=== PATIENT | female | born 1970 | race Two or more races ===

== ENCOUNTER 2020-02-26 09:48 | Emergency (ER) | payer MEDICARE, MEDICAID, SELFPAY ==
[2020-02-26 10:13] VITALS: BP 119/97; PULSE 80; RESP 18; TEMP 37.1; O2SAT 98; BMI 31.8
--- NOTE | 2020-02-26 10:30 | XR_ITS ---
EXAMINATION: XR CHEST CLINICAL INFORMATION: Cough, fever COMPARISON: 01/16/2018 TECHNIQUE: Frontal view of the chest was obtained. FINDINGS: The cardiomediastinal silhouette is within normal limits. The lungs are well expanded. There is no focal consolidation, edema, or effusion. No pneumothorax. No acute osseous abnormality. XR/XR chest 1V IMPRESSION: No evidence of focal consolidation.
[2020-02-26 11:19] VITALS: BP 102/58; PULSE 64; RESP 16; TEMP 37.1; O2SAT 97
--- NOTE | 2020-02-26 11:19 | ED.URI ---
HPI - URI/Sore Throat General Chief Complaint: Upper Respiratory Symptoms Stated Complaint: Fever, Difficulty Breathing Time Seen by Provider: 02/26/20 10:27 Source: patient Mode of arrival: ambulatory History of Present Illness HPI Narrative: 50-year-old female with a past medical history of hypothyroid presenting to ED complaining of fever T-max 102?, dry cough, body aches, mild SOB, and chest discomfort when coughing since last night. Admits to taking Tylenol around 2:00 a.m.. Denies recent travel, sick contacts/exposure to COVID-19, abdominal pain, nausea/vomiting/diarrhea, sore throat MD elicited complaint: cough Related Data Previous Rx's Medication Instructions Recorded albuterol sulfate 2 puff INHALATION Q4-6H PRN #6.7 g 02/26/20 Allergies Allergy/AdvReac Type Severity Reaction Status Date / Time diphenhydramine Allergy Intermediate SEVERE Verified 02/26/20 10:16 [From BENADRYL] LETHARGY Review of Systems Review of Systems: Constitutional: No Weight loss, + Fever, No Chills ENT/Mouth: No Ear Pain, No Nasal Congestion, No Sinus Pain, No Hoarseness, No sore throat, No Rhinorrhea, No Swallowing Difficulty Cardiovascular: + Chest Pain when coughing, + SOB Respiratory: + Cough, No Sputum, No Wheezing Gastrointestinal: No Nausea, No Vomiting, No Diarrhea, No Constipation, No Abdominal pain Genitourinary:No Dysuria Musculoskeletal: No joint pain, + Myalgias, No Joint Swelling Skin: No Skin Lesions, No rash Yes all other systems are reviewed and are negative [facility] Past Medical History Attestation statement: The following information was validated with the patient. Medical History (Updated 02/26/20 @ 11:24 by RADHA Mcgill) Thyroid activity decreased Social History Social History Smoked in Last 30 Days: No Use of substances other than those prescribed or required for medical reasons: No Advance Directives: No Advance Directives Information Provided: Yes Physical Exam Vital Signs: Vital Signs: Last Vital Signs Temp 98.7 F 02/26/20 11:19 Pulse 64 02/26/20 11:19 Resp 16 02/26/20 11:19 BP 102/58 L 02/26/20 11:19 Pulse Ox 97 02/26/20 11:19 Body Mass Index 31.8 Const: General: cooperative and healthy appearing Orientation/consciousness: patient oriented x3 Limitations: no limitations HENMT: Head: Yes normal to inspection Ears: hearing grossly normal bilaterally General nose exam: Normal external nose present Face and sinus: Yes normal facial exam Eyes: General: appearance normal, both eyes and all related structures EOM: EOMs intact bilaterally Neck: Neck: Yes normal visual inspection and Yes no meningeal signs Resp: Effort & Inspection: normal respiratory effort Auscultation: clear to auscultation bilaterally, no crackles, no rhonchi and no wheezes Cardio: Rate: regular rate Heart sounds: S1 normal heart sound present and S2 normal heart sound present GI: Inspection: Yes normal to inspection Skin: Rashes: no rashes Wounds: no wounds Neuro: General: patient oriented x3 and no meningeal signs Gait exam (Neuro): Normal gait present Extrem: General: Yes normal to inspection Course Course Course Narrative: --CXR without evidence of focal consolidation MDM - URI/Sore Throat MDM Narrative Medical decision making narrative: On exam vital signs stable, afebrile, lungs CTA. Concern for viral syndrome/COVID-19. Rule out pneumonia. No concern for ACS/PE Plan: CXR, COVID-19 Discharge Plan Discharge Clinical Impression: Upper respiratory infection Patient Disposition: Home, Self-Care Instructions: Viral Syndrome (ED) Additional Instructions: Your x-ray was unremarkable today in the ED Albuterol inhaler is for shortness of breath/wheezing, take as needed at home Continue to take Tylenol every 4-6 hours for fever, if her fevers not coming down you should take Motrin Call your doctor, schedule follow-up If her symptoms persist or worsen, you develop constant worsening shortness of breath, chest pain, or fever unresolved medications at home return to the ED Jacobo radiograf?a no fue notable hoy en el servicio de urgencias El inhalador de albuterol es para la dificultad para respirar / sibilancias, t?young seg?n sea necesario en casa Contin?e tomando Tylenol cada 4-6 horas para la fiebre; si la fiebre no baja, debe cassidy Motrin. Llame a jacobo m?dico, programe un seguimiento Si maria isabel s?ntomas persisten o empeoran, presenta dificultad para respirar, dolor en el pecho o fiebre que empeoran constantemente. Medicamentos sin resolver en casa regresan al servicio de urgencias. Based on your symptoms and history we have sent a COVID-19. Although your RESULT IS PENDING at this time. RESULTS should return within 72 hours. At this time you will be contacted with either NEGATIVE OR POSITIVE results. -Please wait until we contact you for your results. At this time you will be okay for discharge. Please plan for self quarantine for up to 14 days. Do not expose yourself to others. You may not go to work. If testing does come back negative you may return to activities as long as you are no longer having any symptoms for at least 3 days. Please continue to follow cold instructions and wash your hands frequently. You may take Tylenol as directed on the bottle for pain or fever. Patient seen in the emergency department on 10/11/2019 and should be excused from work until negative test results AND until 72 hours without any symptoms AND at least 10 days have passed since symptoms first appeared or since last exposure to COVID-19 positive patient CDC Guidelines for home isolation: - Stay away from others - WEAR A MASK if you are sick AND STAY HOME - Cover your mouth and nose with a tissue when you cough or sneeze. Dispose of tissues in a lined trash can and wash your hands immediately with soap and water for at least 20 seconds. If soap and water are not available, clean hands with alcohol-based hand second time worker that contains at least 60% alcohol. - Clean your hands often with soap and water for at least 20 seconds - Avoid touching your eyes, nose and mouth with unwashed hands - Do not share dishes, drinking glasses, cups, eating utensils, towels, or bedding with other people in your home. After using these items, wash them thoroughly with soap and water or put in the hand gluer and slicer. - Clean high-touch surfaces in your isolation area ( sick room and bathroom) every day; let a caregiver clean and disinfect high-touch surfaces in other areas of the home. Clean the area or item with soap and water or another detergent if it is dirty. Then, use a household disinfectant. - Limit contact with pets and animals: If you must care for a pet, wash your hands before and after interacting with them) Prescriptions: New albuterol sulfate 90 mcg/actuation HFA aerosol inhaler 2 puff inhalation Q4-6H PRN (Reason: shortness of breath or wheezing) Qty: 6.7 RF: 0 Referrals: Adriana Palencia MD [Primary Care Provider] - 5 days Print Language: Slovenian
== END 2020-02-26 11:38 | disposition home or self-care (01) ==
PROVIDERS: Physician Assistant; Emergency Provider Emergency Medicine; PCP Internal Medicine
DX: J06.9 Acute upper respiratory infection, unspecified (principal); R50.9 Fever, unspecified; M79.10 Myalgia, unspecified site; Z20.828 Contact with and (suspected) exposure to other viral communicable diseases
CPT/HCPCS: 71045; 99284; U0003

== ENCOUNTER 2020-03-02 13:04 | Emergency (ER) | payer MEDICARE, MEDICAID, SELFPAY ==
--- NOTE | 2020-03-02 13:29 | XR_ITS ---
EXAMINATION: XR CHEST CLINICAL INFORMATION: Shortness of breath COMPARISON: Previous chest x-ray 02/26/2020 TECHNIQUE: Frontal view of the chest was obtained. FINDINGS: No significant abnormality is noted involving the heart, lungs, mediastinum, bony thorax or soft tissues. XR/XR chest 1V IMPRESSION: Unremarkable examination.
[2020-03-02 14:43] LABS: MANUAL DIFF FLAG NO
[2020-03-02 14:44] LABS: Eosinophils Percent Auto 0.8 % (0-4); Hematocrit 37.1 % (37-47); Hemoglobin 11.7 g/dl (12.0-16.0); Imm Gran Abs Auto 0.01 X10*3/uL (0.00-0.03); Imm Gran Pct Auto 0.2 % (0.0-0.4); Lymphocytes Percent Auto 21.1 % (20-40); Mean Corpuscular HGB Conc 31.5 g/dl (31.0-35.0); Mean Corpuscular Hemoglobin 27.2 pg (27.0-33.0); Mean Corpuscular Volume 86.3 fL (80-98); Mean Platelet Volume 10.6 fL (9.4-12.3); Monocytes Absolute Auto 0.4 X10*3/uL (0.1-1.2); Neutrophils Absolute Auto 3.4 X10*3/uL (2.0-8.3); Neutrophils Percent Auto 69.9 % (45-73); Platelet Count 169 X10*3/uL (160-400); Red Cell Distribution Width 14.9 % (11.0-16.0); White Blood Count 4.9 X10*3/uL (4.8-10.8)
[2020-03-02 14:58] LABS: D Dimer < 200 NG/ML
[2020-03-02 15:09] LABS: Alanine Aminotransferase 23 U/L (0-31); Albumin Level 3.9 g/dL (3.5-5.0); Alkaline Phosphatase 103 U/L (39-117); Anion Gap 10 (12-20); Aspartate Amino Transferase 54 U/L (5-31); Bilirubin Total 0.3 mg/dL (0.0-1.0); Blood Urea Nitrogen 9 mg/dL (9-16); Calcium 8.1 mg/dL (8.4-10.2); Carbon Dioxide 27 mmol/L (22-29); Chloride 106 mmol/L (96-108); Estimated Glomerular Filt Rate > 60; Glucose Random 88 mg/dL (60-115); Potassium 4.2 mmol/l (3.3-5.1); Sodium 139 mmol/L (135-145); Total Protein 6.5 g/dL (6.5-8.0)
[2020-03-02 15:14] LABS: Troponin-I High Sensitivity < 3.5 ng/L (<3.5-17.0)
[2020-03-02 15:25] VITALS: BP 117/56; PULSE 61; RESP 17; TEMP 35.6; O2SAT 99; BMI 14060.0
--- NOTE | 2020-03-02 15:25 | ED_ITS ---
HPI - SOB/Dyspnea General Chief Complaint: Dyspnea Stated Complaint: difficulty breathing, covid + Time Seen by Provider: 03/02/20 13:28 Source: patient Mode of arrival: ambulatory Limitations: no limitations History of Present Illness HPI Narrative: This is a 50-year-old female who reports she has history of hypothyroidism otherwise no significant past medical history presenting today with complaint of chest pain/tightness and slight cough. States she was seen here 5 days ago she was tested for COVID-19 she was called the following day told she was positive. She states that she has had the nasal congestion and cough with some shortness of breath and tightness in the chest. She denies any fever. Does have slight body aches. No lower extremity swelling or pain. MD elicited complaint: shortness of breath and cough Context: recent illness Timing: other (Wax/wane) Severity: moderate Exacerbating factors: nothing Relieving factors: nothing Associated symptoms: denies other symptoms Treatment prior to arrival: bronchodilator Related Data Previous Rx's Medication Instructions Recorded albuterol sulfate 2 puff INHALATION Q4-6H PRN #6.7 g 02/26/20 azithromycin [Zithromax Z-Stephen] 250 mg PO DAILY 5 Days #6 tab 03/02/20 prednisone 40 mg PO DAILY 5 Days #10 tab 03/02/20 Allergies Allergy/AdvReac Type Severity Reaction Status Date / Time diphenhydramine Allergy Intermediate SEVERE Verified 02/26/20 10:16 [From BENADRYL] LETHARGY Review of Systems Review of Systems: Constitutional: No Weight loss, No Fever, No Chills, No Night Sweats, No Fatigue, No Malaise ENT/Mouth: No Hearing loss, No Ear Pain, + Nasal Congestion, No Sinus Pain, No Hoarseness, No sore throat, + Rhinorrhea, No Swallowing Difficulty Eyes: No Eye Pain, No Swelling, No Redness, No Foreign Body Cardiovascular: + Chest Pain, No SOB, No Dyspnea on Exertion, No Orthopnea, No Edema, No Palpitations Respiratory: + Cough, No Sputum, No Wheezing, No Smoke Exposure, No Dyspnea Gastrointestinal: No Nausea, No Vomiting, No Diarrhea, No Constipation, No abdominal Pain, No Hematochezia, No Melena Genitourinary: no irregular bleeding, No Dysuria, No Urinary Frequency, No Hematuria, No Urinary Incontinence Musculoskeletal: No joint pain, No Myalgias, No Joint Swelling Skin: No Skin Lesions, No rash Neuro: No Weakness, No Numbness, No Paresthesias, No Loss of Consciousness, No Dizziness, No Headache Psych: + Anxiety related to dx of COVID, No Social Issues Heme/Lymph: No Bruising, No Bleeding,No Lymphadenopathy Endocrine: No Polyuria, No Polydipsia, No Temperature Intolerance Yes all other systems are reviewed and are negative [facility] Past Medical History Attestation statement: The following information was validated with the patient. Medical History (Updated 03/02/20 @ 15:28 by Landry Guillermo NP) Thyroid activity decreased Social History Social History Alcohol intake: never Smoking Status: Never smoker Use of substances other than those prescribed or required for medical reasons: No Advance Directives: No Advance Directives Information Provided: Yes Physical Exam Vital Signs: Vital Signs: Last Vital Signs Temp 96.0 F L 03/02/20 15:25 Pulse 61 03/02/20 15:25 Resp 17 03/02/20 15:25 BP 117/56 L 03/02/20 15:25 Pulse Ox 99 03/02/20 15:25 Body Mass Index 79065.0 Reviewed Const: General: cooperative and healthy appearing; No acute distress or intoxicated appearing Nutritional Appearance: average body habitus Orientation/consciousness: patient oriented x3 HENMT: Head: Yes normal to inspection Ears: hearing grossly normal bilaterally Eyes: General: appearance normal, both eyes and all related structures Visual Prajapati: normal visual prajapati by confrontation Neck: Neck: Yes normal visual inspection, No positive Brudzinski's sign, No positive Kernig's sign and No tender Thyroid: Thyroid normal Chest: Chest palpation & inspection: normal inspection of the chest Resp: Effort & Inspection: normal respiratory effort Auscultation: clear to auscultation bilaterally Cardio: Jugular venous distension: no JVD GI: Inspection: Yes normal to inspection Percussion: Yes normal to percussion Auscultation: normal bowel sounds : General: Yes no CVA tenderness Back/Spine/Pelvis: Back: no CVA tenderness Skin: General skin exam: no rashes or lesions noted Neuro: General: patient oriented x3 Extrem: General: Yes normal to inspection MDM - SOB/Dyspnea MDM Narrative Medical decision making narrative: Patient well nontoxic in. Hemodynamically stable. Pulse ox 99-100% on room air. Lung sounds clear to auscultation. Trope/D-dimer negative. EKG nondiagnostic no acute ischemic changes. Differential Diagnosis Differential diagnosis: Likely pneumonia (Viral syndrome); Unlikely acute exacerbation of chronic obstructive airways disease, congestive heart failure, asthma with exacerbation, pulmonary embolism, pleural effusion, sleep apnea and anemia Lab Data Attestation: I reviewed the patient's lab results. Result diagrams: 03/02/20 14:40 03/02/20 14:40 Labs: Lab Results 03/02/20 03/02/20 03/02/20 Range/Units 14:40 14:40 14:40 WBC 4.9 (4.8-10.8) X10*3/uL RBC 4.30 (4.20-5.50) X10*6/uL Hgb 11.7 L (12.0-16.0) g/dl Hct 37.1 (37-47) % MCV 86.3 (80-98) fL MCH 27.2 (27.0-33.0) pg MCHC 31.5 (31.0-35.0) g/dl RDW 14.9 (11.0-16.0) % Plt Count 169 (160-400) X10*3/uL MPV 10.6 (9.4-12.3) fL Immature Gran % (Auto) 0.2 (0.0-0.4) % Neut % (Auto) 69.9 (45-73) % Lymph % (Auto) 21.1 (20-40) % Powell % (Auto) 8.0 (2-11) % Eos % (Auto) 0.8 (0-4) % Baso % (Auto) 0.0 (0-2) % Lymph # (Auto) 1.0 L (1.2-4.9) X10*3/uL Powell # (Auto) 0.4 (0.1-1.2) X10*3/uL Eos # (Auto) 0.0 (0.0-0.4) X10*3/uL Baso # (Auto) 0.0 (0.0-0.2) X10*3/uL Abs Immat Gran (auto) 0.01 (0.00-0.03) X10*3/uL Absolute Neuts (auto) 3.4 (2.0-8.3) X10*3/uL Absolute Nucleated RBC 0.000 (0.0-0.012) X10*3/uL Nucleated RBC % (auto) 0.0 (0.0-0.2) /100WBC D-Dimer < 200 NG/ML Sodium 139 (135-145) mmol/L Potassium 4.2 (3.3-5.1) mmol/l Chloride 106 (96-108) mmol/L Carbon Dioxide 27 (22-29) mmol/L Anion Gap 10 L (12-20) BUN 9 (9-16) mg/dL Creatinine 0.74 (0.5-1.4) mg/dL Estim Creat Clear Calc TNP Estimated GFR > 60 Random Glucose 88 (60-115) mg/dL Calcium 8.1 L (8.4-10.2) mg/dL Total Bilirubin 0.3 (0.0-1.0) mg/dL AST 54 H (5-31) U/L ALT 23 (0-31) U/L Alkaline Phosphatase 103 (39-117) U/L Troponin I High Sens (<3.5-17.0) ng/L Total Protein 6.5 (6.5-8.0) g/dL Albumin 3.9 (3.5-5.0) g/dL 03/02/20 Range/Units 14:40 WBC (4.8-10.8) X10*3/uL RBC (4.20-5.50) X10*6/uL Hgb (12.0-16.0) g/dl Hct (37-47) % MCV (80-98) fL MCH (27.0-33.0) pg MCHC (31.0-35.0) g/dl RDW (11.0-16.0) % Plt Count (160-400) X10*3/uL MPV (9.4-12.3) fL Immature Gran % (Auto) (0.0-0.4) % Neut % (Auto) (45-73) % Lymph % (Auto) (20-40) % Powell % (Auto) (2-11) % Eos % (Auto) (0-4) % Baso % (Auto) (0-2) % Lymph # (Auto) (1.2-4.9) X10*3/uL Powell # (Auto) (0.1-1.2) X10*3/uL Eos # (Auto) (0.0-0.4) X10*3/uL Baso # (Auto) (0.0-0.2) X10*3/uL Abs Immat Gran (auto) (0.00-0.03) X10*3/uL Absolute Neuts (auto) (2.0-8.3) X10*3/uL Absolute Nucleated RBC (0.0-0.012) X10*3/uL Nucleated RBC % (auto) (0.0-0.2) /100WBC D-Dimer NG/ML Sodium (135-145) mmol/L Potassium (3.3-5.1) mmol/l Chloride (96-108) mmol/L Carbon Dioxide (22-29) mmol/L Anion Gap (12-20) BUN (9-16) mg/dL Creatinine (0.5-1.4) mg/dL Estim Creat Clear Calc Estimated GFR Random Glucose (60-115) mg/dL Calcium (8.4-10.2) mg/dL Total Bilirubin (0.0-1.0) mg/dL AST (5-31) U/L ALT (0-31) U/L Alkaline Phosphatase (39-117) U/L Troponin I High Sens < 3.5 (<3.5-17.0) ng/L Total Protein (6.5-8.0) g/dL Albumin (3.5-5.0) g/dL Imaging Data Chest x-ray: Attestation: I personally reviewed and interpreted this imaging study as follows: Radiologist's impression: [address] [address] XRay Report Signed Patient: Sudha Dean [facility]#: [id number] : 1970Acct:[id number] Age/Sex: 50 / FADM Date: 03/02/20 Loc: .ED Attending Dr: Ordering Physician: Landry Guillermo NP Date of Service: 03/02/20 Procedure(s): XR chest 1V Accession Number(s): [id number] cc: Landry Guillermo 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 FINDINGS: No significant abnormality is noted involving the heart, lungs, mediastinum, bony thorax or soft tissues. XR/XR chest 1V IMPRESSION: Unremarkable examination. Dictated By:TYLER HUGHES MD Signed By:<Electronically signed by TYLER HUGHES MD in OV>03/02/20 1408 DD/ 1329 TD/TT: Sewer Pipe Press Operator: RADHA Discharge Plan Discharge Clinical Impression: COVID-19, Acute chest wall pain Patient Disposition: Home, Self-Care Instructions: Chest Pain (ED), COVID-19 (Coronavirus Disease 2019) (ED) Prescriptions: New azithromycin [Zithromax Z-Stephen] 250 mg tablet 250 mg PO DAILY 5 Days Qty: 6 RF: 0 prednisone 20 mg tablet 40 mg PO DAILY 5 Days Qty: 10 RF: 0 No Action albuterol sulfate 90 mcg/actuation HFA aerosol inhaler 2 puff inhalation Q4-6H PRN (Reason: shortness of breath or wheezing) Qty: 6.7 RF: 0 Referrals: Adriana Palencia MD [Primary Care Provider] - 5 days (Phone visit++) Discharge Date/Time: 03/02/20 15:39
== END 2020-03-02 15:39 | disposition home or self-care (01) ==
PROVIDERS: Nurse Practitioner Primary Care; Emergency Provider Emergency Medicine; PCP Internal Medicine
DX: U07.1 COVID-19 (principal); R06.02 Shortness of breath; R07.89 Other chest pain; Z79.899 Other long term (current) drug therapy
CPT/HCPCS: 36415; 71045; 80053; 84484; 85025; 85379; 99283

== ENCOUNTER → 2020-03-05 13:49 | Outpatient (BNVA) | payer MEDICARE, MEDICAID, SELFPAY | PROVIDERS: PCP Internal Medicine; Referring Provider Internal Medicine; Visit Provider Internal Medicine Endocrinology, Diabetes & Metabolism | DX: E03.9 Hypothyroidism, unspecified (principal); E55.9 Vitamin D deficiency, unspecified; U07.1 COVID-19; R53.83 Other fatigue; R06.02 Shortness of breath; R05 Cough; Z79.899 Other long term (current) drug therapy | CPT/HCPCS: Q3014 ==

== ENCOUNTER 2020-03-26 13:01 | Outpatient (REF) | payer MEDICARE, MEDICAID, SELFPAY ==
[2020-03-26 15:14] LABS: Free T4 (Free Thyroxine) 1.14 ng/dL (0.71-1.85); Thyroid Stimulating Hormone 0.39 uIU/mL (0.32-4.0); Vitamin D 25-OH Total 18.2 ng/mL (>30)
== END 2020-03-26 13:02 | disposition home or self-care (01) ==
LOC: HO.LAB 13:01
PROVIDERS: Absent Provider Internal Medicine Endocrinology, Diabetes & Metabolism; PCP Internal Medicine; Visit Provider Internal Medicine
DX: Z20.828 Contact with and (suspected) exposure to other viral communicable diseases (principal); E55.9 Vitamin D deficiency, unspecified; E06.3 Autoimmune thyroiditis; E03.8 Other specified hypothyroidism
CPT/HCPCS: 82306; 84439; 84443; C9803; U0003

== ENCOUNTER 2020-04-23 10:14 | Outpatient (REF) | payer OTHER, SELFPAY ==
--- NOTE | 2020-04-23 10:20 | XR_ITS ---
EXAMINATION: XR CHEST CLINICAL INFORMATION: Chest pain COMPARISON: Chest radiographs 03/02/2020, 02/26/2020 TECHNIQUE: 2 views of the chest were obtained. FINDINGS: The lungs are clear. There is no pneumothorax, pleural reaction, airspace consolidation, or groundglass opacity. No effusion. The costophrenic sulci are well-defined. The heart is normal in size. The hilar and mediastinal contours are normal. There is surgical clips again seen epigastrium left of midline. Bony structures are unremarkable. XR/XR chest 2V IMPRESSION: Unremarkable examination.
== END 2020-04-23 10:15 | disposition home or self-care (01) ==
LOC: HO.XRAY 10:14
PROVIDERS: PCP Internal Medicine; Visit Provider Internal Medicine
DX: R07.89 Other chest pain (principal)
CPT/HCPCS: 71046

== ENCOUNTER 2020-05-16 21:53 | Emergency (ER) | payer OTHER, SELFPAY ==
[2020-05-16 22:02] VITALS: BP 132/63; PULSE 82; RESP 16; TEMP 36.6; O2SAT 100; BMI 33.6
--- NOTE | 2020-05-16 22:41 | XR_ITS ---
EXAMINATION: XR CHEST CLINICAL INFORMATION: Cough COMPARISON: Chest x-ray of 04/23/2020, 03/02/2020, 02/26/2020 TECHNIQUE: 2 views of the chest were obtained. FINDINGS: The cardiomediastinal silhouette is stable and normal. The lungs are symmetrically well expanded. The lungs are clear. No pleural effusions or pneumothorax. The osseous structures are unremarkable. Visualized upper abdomen is unremarkable. XR/XR chest 2V IMPRESSION: No radiographic evidence of pneumonia. No acute pulmonary process.
--- NOTE | 2020-05-16 22:43 | ED_ITS ---
HPI - Back Pain/Injury General Chief Complaint: Back Pain/Injury Stated Complaint: Back strain Time Seen by Provider: 05/16/20 22:08 Source: patient Mode of arrival: ambulatory History of Present Illness HPI Narrative: This is a 50-year-old female who states that she went to sleep and then woke up with a sharp posterolateral pain within the rib area that became worse with deep inspiration and is not associated with trauma, fevers, chills, cough, sore throat, any GI symptoms, or symptoms. This started last night and patient has not taken anything [id number] to alleviate the pain because she ?did not know what it was?. No recent history of long car rides or plane trips, hemoptysis, estrogen supplementation, personal history of cancer, recent surgery or bed bound state, calf pain or calf swelling. Related Data Home Medications Medication Instructions Recorded Confirmed hydroxyzine HCl 25 mg tablet mg PO 03/05/20 03/05/20 lorazepam 0.5 mg tablet 0.5 mg PO BEDTIME PRN 03/05/20 03/05/20 Previous Rx's Medication Instructions Recorded albuterol sulfate 2 puff INHALATION Q4-6H PRN #6.7 g 02/26/20 azithromycin [Zithromax Z-Stephen] 250 mg PO DAILY 5 Days #6 tab 03/02/20 prednisone 40 mg PO DAILY 5 Days #10 tab 03/02/20 levothyroxine 137 mcg tablet 137 mcg PO DAILY 90 Days #90 tab 03/05/20 cholecalciferol (vitamin D3) 50 50 mcg PO DAILY 90 Days #90 cap 03/26/20 mcg (2,000 unit) capsule Allergies Allergy/AdvReac Type Severity Reaction Status Date / Time diphenhydramine Allergy Intermediate SEVERE Verified 05/16/20 22:04 [From BENADRYL] LETHARGY Review of Systems Review of Systems: Pertinent positives and negatives as stated in HPI 10 point review of systems is otherwise negative. PMFSH Past Medical History Source: nursing notes reviewed Medical History Asthma Depression Hypothyroidism Thyroid activity decreased Vitamin D deficiency Surgical History Hx of gastric bypass Hx of lithotripsy Family History Family History Father Leukemia Cancer Mother Diabetes mellitus Hypertension Social History Social History Alcohol intake: never Smoking Status: Never smoker Advance Directives: No Advance Directives Information Provided: Yes Physical Exam Vital Signs: Vital Signs: Last Vital Signs Temp 97.9 F 05/16/20 22:02 Pulse 82 05/16/20 22:02 Resp 16 05/16/20 22:02 BP 132/63 05/16/20 22:02 Pulse Ox 100 05/16/20 22:02 Body Mass Index 33.6 VITAL SIGNS: Reviewed. GENERAL: Well developed, well nourished, in no acute distress. NOSE: Nares patent bilateral OROPHARYNX: no oral lesions noted, posterior pharynx clear NECK: Supple, no adenopathy LUNGS: Normal breath sounds. No adventitious sounds or accessory muscle use. SpO2<100> CARDIOVASCULAR: Regular rate and rhythm without noted murmurs ABDOMEN: Soft, non-tender, non-distended with bowel sounds. No rigidity. No guarding. No palpable masses or hernias noted MUSCULOSKELETAL: Tenderness on palpation over left posterior lateral lower margin of the ribs without erythema or induration SKIN: Inspection of the skin reveals no rashes NEUROLOGIC: Alert and oriented x 4. Course Course Course Narrative: This is a 50-year-old female with history and clinical presentation consistent with suspected muscle spasm/strain and low likelihood of cardiopulmonary etiology for pyelonephritis and doubt PE. Review of all investigations is negative for any acute findings. On re- evaluation patient states that she has had significant improvement with the combination analgesics provided. All results and findings were discussed with her bedside and she was discharged home in stable condition. MDM - Back Pain/Injury Lab Data Labs: Lab Results 05/16/20 Range/Units 23:10 Urine Color YELLOW Urine Appearance CLEAR Urine pH 6.0 (5.0-8.0) Ur Specific [place] >= 1.030 H (1.005-1.025) Urine Protein NEG (NEG-TRACE) MG/DL Urine Glucose (UA) NEG (NEG) MG/DL Urine Ketones 5 (NEG) MG/DL Urine Blood NEG (NEG) Urine Nitrite NEG (NEG) Ur Leukocyte Esterase NEG (NEG) Discharge Plan Discharge Clinical Impression: Muscle spasm of back Patient Disposition: Home, Self-Care Instructions: Muscle Spasm (ED) Additional Instructions: 1. Tylenol 1000 mg, por v?a oral, cada 6 horas seg?n sea necesario para controlar el dolor. No exceda los 4000 mg en 24 horas. 2. Ibuprofeno 400 mg, por v?a oral con leche o alimentos, cada 6 horas seg?n sea necesario para controlar el dolor. Puede cassidy esto con Tylenol para un alivio adicional de los s?ntomas. 3. Parche de lidoca?na, estos est?n disponibles en todos los [facility] / [facility] / [facility], apl?quelo en el ?josiah de m?xima sensibilidad ritchie se indica en el empaque exterior. Regrese al departamento de emergencias si experimenta un empeoramiento orestes de maria isabel s?ntomas. Prescriptions: No Action cholecalciferol (vitamin D3) 50 mcg (2,000 unit) capsule 50 mcg PO DAILY 90 Days Qty: 90 RF: 3 azithromycin [Zithromax Z-Stephen] 250 mg tablet 250 mg PO DAILY 5 Days Qty: 6 RF: 0 prednisone 20 mg tablet 40 mg PO DAILY 5 Days Qty: 10 RF: 0 albuterol sulfate 90 mcg/actuation HFA aerosol inhaler 2 puff inhalation Q4-6H PRN (Reason: shortness of breath or wheezing) Qty: 6.7 RF: 0 lorazepam 0.5 mg tablet 0.5 mg PO BEDTIME PRNRF: 0 hydroxyzine HCl 25 mg tablet PO RF: 0 levothyroxine 137 mcg tablet 137 mcg PO DAILY 90 Days Qty: 90 RF: 3 Referrals: Adriana Palencia MD [Primary Care Provider] - 2 days (Re-evaluation after being seen in the emergency department on 05/17 for left posterolateral pain with negative chest x-ray/UA.) Print Language: Romansh
[2020-05-16] MEDS: Acetaminophen 325 MG TABLET 975 MG PO (23:00)
[2020-05-16] MEDS: Ketorolac Tromethamine 15 MG/ML VIAL IM (23:00)
[2020-05-16] MEDS: Lidocaine 4 % Patch ADH..PATCH 1 PATCH TRANSDERMA (23:03)
[2020-05-16 23:16] LABS: Glucose Urine UA NEG (NEG); Leukocyte Esterase Urine NEG (NEG); Nitrite Urine NEG (NEG); Specific Gravity - Urine >= 1.030 (1.005-1.025); Urine Blood NEG (NEG); Urine Ketones 5 MG/DL (NEG); Urine Protein NEG (NEG-TRACE)
[2020-05-16 23:18] LABS: Appearance Urine CLEAR; Color Urine YELLOW
== END 2020-05-17 00:44 | disposition home or self-care (01) ==
PROVIDERS: Emergency Provider Student in an Organized Health Care Education/Training Program; PCP Internal Medicine
DX: M62.830 Muscle spasm of back (principal); Z86.16 Personal history of COVID-19
CPT/HCPCS: 71046; 81003; 96372; 99284; J1885

== ENCOUNTER 2020-05-25 11:26 | Outpatient (REF) | payer OTHER, SELFPAY ==
--- NOTE | ~2020-05-25 | XR_ITS ---
EXAMINATION: XR CERVICAL SPINE XR LUMBAR SPINE CLINICAL INFORMATION: Neck pain. Lower back pain. COMPARISON: Cervical spine radiographs dated 05/31/2016. CT abdomen/pelvis dated 10/05/2010. TECHNIQUE: AP, lateral, open-mouth, foraminal, and bilateral oblique views of the cervical spine. AP, lateral, and coned-down views of the lumbar spine. FINDINGS: CERVICAL SPINE: Normal vertebral body alignment. The cervical lordosis is maintained. No acute fracture or subluxation. No loss of vertebral body height. Mild loss of intervertebral disc height with tiny anterior endplate osteophytes at C4-C5 and C5-C6. No significant neural foraminal stenosis. No lytic or blastic osseous lesion. Normal atlantoaxial alignment. Unremarkable prevertebral soft tissues. LUMBAR SPINE: Normal vertebral body alignment. The lumbar lordosis is maintained. No acute fracture or subluxation. No loss of vertebral body or intervertebral disc height. No lytic or blastic osseous lesion. No abnormal soft tissue calcification. Left upper quadrant surgical clips. XR/XR cervical spine min 6V IMPRESSION: Cervical spine: Mild degenerative disc disease at C4-C5 and C5-C6, similar when compared to the prior examination. Lumbar spine: Unremarkable examination.
--- NOTE | ~2020-05-25 | XR_ITS ---
EXAMINATION: XR CERVICAL SPINE XR LUMBAR SPINE CLINICAL INFORMATION: Neck pain. Lower back pain. COMPARISON: Cervical spine radiographs dated 05/31/2016. CT abdomen/pelvis dated 10/05/2010. TECHNIQUE: AP, lateral, open-mouth, foraminal, and bilateral oblique views of the cervical spine. AP, lateral, and coned-down views of the lumbar spine. FINDINGS: CERVICAL SPINE: Normal vertebral body alignment. The cervical lordosis is maintained. No acute fracture or subluxation. No loss of vertebral body height. Mild loss of intervertebral disc height with tiny anterior endplate osteophytes at C4-C5 and C5-C6. No significant neural foraminal stenosis. No lytic or blastic osseous lesion. Normal atlantoaxial alignment. Unremarkable prevertebral soft tissues. LUMBAR SPINE: Normal vertebral body alignment. The lumbar lordosis is maintained. No acute fracture or subluxation. No loss of vertebral body or intervertebral disc height. No lytic or blastic osseous lesion. No abnormal soft tissue calcification. Left upper quadrant surgical clips. XR/XR lumbar spine 2-3V IMPRESSION: Cervical spine: Mild degenerative disc disease at C4-C5 and C5-C6, similar when compared to the prior examination. Lumbar spine: Unremarkable examination.
== END 2020-05-25 11:27 | disposition home or self-care (01) ==
LOC: HO.XRAY 11:26
PROVIDERS: PCP Internal Medicine; Visit Provider Internal Medicine
DX: M54.5 Low back pain (principal)
CPT/HCPCS: 72052; 72100

== ENCOUNTER 2020-08-27 11:53 | Outpatient (REF) | payer OTHER, SELFPAY ==
--- NOTE | ~2020-08-27 | MM_ITS ---
EXAMINATION: MM SCREENING DIGITAL BREAST TOMOSYNTHESIS, BILATERAL CLINICAL INFORMATION: Screening. Asymptomatic. The lifetime risk of breast cancer based on the Tyrer-Cuzick Model is 7.3%. COMPARISON: Mammography: May 30, 2019 and studies dating back to May 25, 2010 TECHNIQUE: Digital breast tomosynthesis is performed in both the craniocaudal and mediolateral oblique views along with computer-aided detection (CAD). Synthesized 2D images are generated from the tomosynthesis. FINDINGS: There are scattered areas of fibroglandular density (ACR BI-RADS breast composition Category b). There are no significant masses, abnormal calcifications, or other abnormalities. MM/MM tomosynthesis screening BI IMPRESSION: There are no significant changes from prior study. ASSESSMENT: BI-RADS 1: Negative RECOMMENDATION: Routine annual mammography screening. This patient's information was entered into a reminder system with a target due date for their next mammogram.
== END 2020-08-27 11:54 | disposition home or self-care (01) ==
LOC: HO.MAMMO 11:53
PROVIDERS: Visit Provider Internal Medicine
DX: Z12.31 Encounter for screening mammogram for malignant neoplasm of breast (principal)
CPT/HCPCS: 77063; 77067

== ENCOUNTER 2021-01-18 10:31 | Emergency (ER) | payer OTHER, SELFPAY ==
--- NOTE | 2021-01-18 | ECG_ITS ---
Test Reason : CP Blood Pressure : / mmHG Vent. Rate : 062 BPM Atrial Rate : 062 BPM P-R Int : 148 ms QRS Dur : 072 ms QT Int : 420 ms P-R-T Axes : 038 013 049 degrees QTc Int : 426 ms Normal sinus rhythm Normal ECG When compared with ECG of 16-JAN-2018 10:03, No significant change was found Referred By: Generic ED Physician Electronically Signed By:LOU GHOSH
--- NOTE | ~2021-01-18 | XR_ITS ---
EXAMINATION: XR CHEST CLINICAL INFORMATION: Cough. COMPARISON: None TECHNIQUE: Frontal view of the chest was obtained. FINDINGS: No significant abnormality is noted involving the heart, lungs, mediastinum, bony thorax or soft tissues. XR/XR chest 1V IMPRESSION: Unremarkable chest exam.
[2021-01-18 10:38] VITALS: BP 113/72; PULSE 62
[2021-01-18 11:14] VITALS: BP 128/57; PULSE 58; RESP 17; TEMP 35.6; O2SAT 100; BMI 34.9
[2021-01-18 13:39] VITALS: BP 131/61; PULSE 64; RESP 18; TEMP 36.7; O2SAT 99
--- NOTE | 2021-01-18 13:55 | ED_ITS ---
HPI - General Adult General Chief complaint: General Medical Stated complaint: CH PRESSURE W/INSP,SINUS LUNA,DIARRHEA Time Seen by Provider: 01/18/21 13:42 Source: patient Mode of arrival: ambulatory Limitations: no limitations History of Present Illness HPI narrative: Patient comes to the emergency room complaining of sinus congestion, pressure in the forehead and nose. States she have slight neck pain on the left side of the neck in 1 specific spot. Patient states that today she had 2 panic attack starting at 2 in the morning, EMS was called, vitals stable, patient declined transport to hospital. Patient states that this time she has no chest pain, no shortness of breath, she feels very congested and cannot breathe through her nose. Related Data Home Medications Medication Instructions Recorded Confirmed hydroxyzine HCl 25 mg tablet mg PO 03/05/20 03/05/20 lorazepam 0.5 mg tablet 0.5 mg PO BEDTIME PRN 03/05/20 03/05/20 Previous Rx's Medication Instructions Recorded albuterol sulfate 90 mcg/actuation 2 puff INHALATION Q4-6H PRN #6.7 g 02/26/20 aerosol inhaler azithromycin 250 mg tablet 250 mg PO DAILY 5 Days #6 tab 03/02/20 (Zithromax Z-Stephen) prednisone 20 mg tablet 40 mg PO DAILY 5 Days #10 tab 03/02/20 levothyroxine 137 mcg tablet 137 mcg PO DAILY 90 Days #90 tab 03/05/20 cholecalciferol (vitamin D3) 50 50 mcg PO DAILY 90 Days #90 cap 03/26/20 mcg (2,000 unit) capsule fexofenadine 60 mg-pseudoephedrine 1 tab PO Q12H 4 Days #8 tab 01/18/21 ER 120 mg tablet,ext.release,12 hr (Liliam-D 12 Hour) fluticasone propionate 50 1 spray INTRANASAL BID #16 g 01/18/21 mcg/actuation nasal spray,suspension (Children's Flonase Allergy Relief) Allergies Allergy/AdvReac Type Severity Reaction Status Date / Time diphenhydramine Allergy Intermediate SEVERE Verified 05/16/20 22:04 [From BENADRYL] LETHARGY Review of Systems Review of Systems: Constitutional : No Weight loss, No Fever, No Chills, No Night Sweats, No Fatigue, No Malaise ENT/Mouth : No Hearing loss, No Ear Pain, complaining of nasal congestion and sinus pain, No Hoarseness, No sore throat, No Rhinorrhea, No Swallowing Difficulty Eyes: No Eye Pain, No Swelling, No Redness, No Foreign Body, No Discharge, No Vision Changes Cardiovascular : No Chest Pain, No SOB, No Dyspnea on Exertion, No Orthopnea, No Edema, No Palpitations Respiratory : No Cough, No Sputum, No Wheezing, No Smoke Exposure, No Dyspnea Gastrointestinal : No Nausea, No Vomiting, No Diarrhea, No Constipation, No abdominal Pain, No Hematochezia, No Melena Genitourinary : no irregular bleeding, No Dysuria, No Urinary Frequency, No Hematuria, No Urinary Incontinence, No Urgency, No Flank Pain, No Urinary Flow Changes, No Hesitancy Musculoskeletal : No joint pain, No Myalgias, No Joint Swelling Skin : No Skin Lesions, No rash Neuro : No Weakness, No Numbness, No Paresthesias, No Loss of Consciousness, No Dizziness, No Headache Psych : Panic attack resolved, No Depression, No SI/HI/AH/VH, No Social Issues, Heme/Lymph: No Bruising, No Bleeding,No Lymphadenopathy Endocrine : No Polyuria, No Polydipsia, No Temperature Intolerance PMFSH Past Medical History Medical History Asthma Depression Hypothyroidism Thyroid activity decreased Vitamin D deficiency Surgical History Hx of gastric bypass Hx of lithotripsy Family History Family History Father Leukemia Cancer Mother Diabetes mellitus Hypertension Social History Social History Alcohol intake: never Advance Directives: No Advance Directives Information Provided: No Patient : No Physical Exam Vital Signs: Vital Signs: Last Vital Signs Temp 97.9 F 01/18/21 14:26 Pulse 60 01/18/21 14:26 Resp 16 01/18/21 14:26 BP 143/59 H 01/18/21 14:26 Pulse Ox 99 01/18/21 14:26 Body Mass Index 34.9 Const: Other: Appearance: Alert. Oriented X3. No acute distress. Eyes: Pupils equal, round and reactive to light. ENT: Pharynx normal. Pain to palpation over sinuses and ethmoid sinuses, patient is congested Neck: Normal inspection. Neck supple. No lymph nodes noted. No crepitus CVS: Normal heart rate and rhythm. Pulses normal. Normal S1 and S2 Respiratory: No respiratory distress. Breath sounds normal. No Wheezing. No rales Abdomen: Soft and nontender. No rigidity. No distention. good BS x4 Skin: Skin warm and dry. Normal skin color. Normal skin turgor. Extremities: No lower extremity edema. No lower extremity edema. No L acerations. No Rash Neuro: Oriented X 3. No motor deficit. No sensory deficit. Moving all extermities. No slurred speech. Medical Decision Making Lab Data Labs: Lab Results 01/18/21 Range/Units 14:23 COVID-19 ([facility]) Negative (Negative) COVID-19 Clin Com See Note Imaging Data Chest x-ray: Radiologist's impression: No significant abnormality is noted involving the heart, lungs, mediastinum, bony thorax or soft tissues. XR/XR chest 1V IMPRESSION: Unremarkable chest exam. ECG Data Attestation: I personally reviewed and interpreted this ECG as follows: (Sinus rhythm, heart rate 62, no ST segment depression or elevation, nonspecific T-wave inversion in V2, QTC 426) Discharge Plan Discharge Clinical Impression: Sinusitis Qualifiers: Sinusitis location: frontal Chronicity: acute Recurrence: not specified as recurrent Qualified Code(s): J01.10 - Acute frontal sinusitis, unspecified Patient Disposition: Home, Self-Care Instructions: Sinusitis (ED) Additional Instructions: Please follow-up with your primary care physician tomorrow. If you have any worsening or new symptoms, please return to the emergency room or call 911 Prescriptions: New fexofenadine-pseudoephedrine [Liliam-D 12 Hour] 60-120 mg tablet extended release 12 hr 1 tab PO Q12H 4 Days Qty: 8 RF: 0 fluticasone propionate [Children's Flonase Allergy Rlf] 50 mcg/actuation spray,suspension 1 spray intranasal BID Qty: 16 RF: 0 No Action cholecalciferol (vitamin D3) 50 mcg (2,000 unit) capsule 50 mcg PO DAILY 90 Days Qty: 90 RF: 3 azithromycin [Zithromax Z-Stephen] 250 mg tablet 250 mg PO DAILY 5 Days Qty: 6 RF: 0 prednisone 20 mg tablet 40 mg PO DAILY 5 Days Qty: 10 RF: 0 albuterol sulfate 90 mcg/actuation HFA aerosol inhaler 2 puff inhalation Q4-6H PRN (Reason: shortness of breath or wheezing) Qty: 6.7 RF: 0 lorazepam 0.5 mg tablet 0.5 mg PO BEDTIME PRNRF: 0 hydroxyzine HCl 25 mg tablet PO RF: 0 levothyroxine 137 mcg tablet 137 mcg PO DAILY 90 Days Qty: 90 RF: 3
[2021-01-18 14:26] VITALS: BP 143/59; PULSE 60; RESP 16; TEMP 36.6; O2SAT 99
[2021-01-18 14:56] LABS: COVID-19 Test Negative (Negative); IDNOW Serial# 9DD0AD1C
[2021-01-18] MEDS: Acetaminophen 325 MG TABLET 650 MG PO (15:41)
== END 2021-01-18 15:52 | disposition home or self-care (01) ==
PROVIDERS: Emergency Provider Emergency Medicine; PCP Internal Medicine
DX: J01.10 Acute frontal sinusitis, unspecified (principal); M54.2 Cervicalgia; Z20.822 Contact with and (suspected) exposure to COVID-19; Z79.899 Other long term (current) drug therapy
CPT/HCPCS: 36415; 71045; 87635; 93005; 99283; 99284

== ENCOUNTER 2021-06-03 15:27 | Outpatient (REF) | payer OTHER, SELFPAY ==
[2021-06-03 17:40] LABS: Free T4 (Free Thyroxine) 1.27 ng/dL (0.71-1.85); Thyroid Stimulating Hormone 0.31 uIU/mL (0.32-4.0)
== END 2021-06-03 15:28 | disposition home or self-care (01) ==
LOC: HO.LAB 15:27
PROVIDERS: PCP Internal Medicine; Visit Provider Internal Medicine Endocrinology, Diabetes & Metabolism
DX: E03.8 Other specified hypothyroidism (principal); E06.3 Autoimmune thyroiditis
CPT/HCPCS: 36415; 84439; 84443

== ENCOUNTER 2021-06-08 14:48 | Outpatient (REF) | payer OTHER, SELFPAY ==
[2021-06-08 16:30] LABS: Vitamin D 25-OH Total 22.3 ng/mL (>30)
== END 2021-06-08 14:49 | disposition home or self-care (01) ==
LOC: HO.LAB 14:48
PROVIDERS: PCP Internal Medicine; Visit Provider Internal Medicine Endocrinology, Diabetes & Metabolism
DX: E03.8 Other specified hypothyroidism (principal); E59 Dietary selenium deficiency; E06.3 Autoimmune thyroiditis
CPT/HCPCS: 36415; 82306; 99212

== ENCOUNTER 2021-07-02 08:53 | Outpatient (REF) | payer OTHER, SELFPAY ==
[2021-07-02 16:52] LABS: CT PCR NOT DETECTED (Not Detect.); NG PCR NOT DETECTED (Not Detect.)
[2021-07-03 14:18] LABS: BV Int Neg Control Negative (Negative); BV Int Pos Control Positive (Positive)
[2021-07-07 16:42] LABS: HPV mRNA E6/E7 rflx Not Detected (Not Detected)
== END 2021-07-02 08:54 | disposition home or self-care (01) ==
LOC: HO.LAB 08:53
PROVIDERS: PCP Internal Medicine; Visit Provider Advanced Practice Midwife
DX: Z01.419 Encounter for gynecological examination (general) (routine) without abnormal findings (principal); Z11.51 Encounter for screening for human papillomavirus (HPV); Z20.2 Contact with and (suspected) exposure to infections with a predominantly sexual mode of transmission
CPT/HCPCS: 87480; 87491; 87510; 87591; 87624; 87660; 88142

== ENCOUNTER 2021-09-09 11:46 | Emergency (ER) | payer OTHER, SELFPAY ==
--- NOTE | ~2021-09-09 | XR_ITS ---
EXAMINATION: XR CHEST CLINICAL INFORMATION: Chest pain COMPARISON: 01/18/2021 TECHNIQUE: Frontal view of the chest was obtained. FINDINGS: No significant abnormality is noted involving the heart, lungs, mediastinum, bony thorax or soft tissues. XR/XR chest 1V IMPRESSION: Unremarkable examination.
--- NOTE | 2021-09-09 11:49 | ECG_ITS ---
Test Reason : chest pain Blood Pressure : / mmHG Vent. Rate : 084 BPM Atrial Rate : 084 BPM P-R Int : 132 ms QRS Dur : 072 ms QT Int : 378 ms P-R-T Axes : 042 009 046 degrees QTc Int : 446 ms Normal sinus rhythm with sinus arrhythmia Low voltage QRS Cannot rule out Anterior infarct , age undetermined Abnormal ECG When compared with ECG of 18-JAN-2021 10:36, No significant change was found Referred By: Generic ED Physician Electronically Signed By:Joe Olguin
[2021-09-09 13:26] VITALS: BP 113/79; PULSE 72; RESP 18; TEMP 36.3; O2SAT 100; BMI 28.0
[2021-09-09 13:44] LABS: MANUAL DIFF FLAG NO
[2021-09-09 13:45] LABS: Basophils Percent Auto 0.5 % (0-2); Eosinophils Absolute Auto 0.2 X10*3/uL (0.0-0.4); Eosinophils Percent Auto 2.2 % (0-4); Hematocrit 42.2 % (37.0-47.0); Hemoglobin 13.8 g/dl (12.0-16.0); Imm Gran Abs Auto 0.01 X10*3/uL (0.00-0.03); Imm Gran Pct Auto 0.1 % (0.0-0.4); Lymphocytes Absolute Auto 1.6 X10*3/uL (1.2-4.9); Mean Corpuscular HGB Conc 32.7 g/dl (31.0-35.0); Mean Corpuscular Hemoglobin 30.3 pg (27.0-33.0); Mean Corpuscular Volume 92.5 fL (80.0-98.0); Mean Platelet Volume 10.8 fL (9.4-12.3); Monocytes Absolute Auto 0.6 X10*3/uL (0.1-1.2); Monocytes Percent Auto 8.2 % (2-11); Neutrophils Absolute Auto 4.9 x10*3/uL (2.0-8.3); Platelet Count 176 X10*3/uL (160-400); Red Blood Count 4.56 X10*6/uL (4.20-5.50); Red Cell Distribution Width 13.5 % (11.0-16.0); White Blood Count 7.3 X10*3/uL (4.8-10.8)
[2021-09-09 13:45] LABS: Appearance Urine CLEAR; Color Urine YELLOW; Glucose Urine UA NEG (NEG); Leukocyte Esterase Urine NEG (NEG); Nitrite Urine NEG (NEG); PH 6.5 (5.0-8.0); Urine Blood NEG (NEG); Urine Ketones NEG (NEG); Urine Protein NEG (NEG-TRACE)
[2021-09-09 14:02] LABS: COVID-19 Test Negative (Negative); IDNOW Serial# 55D5AD1C; Influenza A Negative (Negative); Influenza B2 Negative (Negative)
[2021-09-09 14:03] LABS: Alanine Aminotransferase 11 U/L (0-31); Albumin Level 4.1 g/dL (3.5-5.0); Alkaline Phosphatase 131 U/L (39-117); Anion Gap 12 (12-20); Aspartate Amino Transferase 25 U/L (5-31); Bilirubin Total 0.5 mg/dL (0.0-1.0); Blood Urea Nitrogen 7 mg/dL (9-16); Calcium 9.4 mg/dL (8.4-10.2); Carbon Dioxide 27 mmol/L (22-29); Chloride 107 mmol/L (96-108); Creatinine Clr Calc Pharmacy 91.6; Estimated Glomerular Filt Rate > 60; Glucose Random 88 mg/dL (60-115); Potassium 4.8 mmol/L (3.3-5.1); Sodium 141 mmol/L (135-145)
[2021-09-09 14:09] LABS: Troponin-I High Sensitivity < 3.5 ng/L (<3.5-17.0)
--- NOTE | 2021-09-09 15:00 | ED_ITS ---
HPI - General Adult General Chief complaint: General Medical Stated complaint: chest pain, arm pain, urge to vomit, body itch Time Seen by Provider: 09/09/21 14:52 Source: patient and freelance interpreter/translator Mode of arrival: ambulatory Limitations: language barrier History of Present Illness HPI narrative: 51-year-old female with a history of asthma, depression, hypothyroidism here with multiple complaints. C/o whole body itching x 2 weeks. Patient has seen primary care doctor twice for this. She is taking Claritin but no other medications. Patient also complaining of some chest pain since last night, feels pain in left arm. Pain is constant achy . No associated shortness of breath, dizziness, nausea, diaphoresis. This morning after waking patient urinated and then felt some sharp stabbing pain in her left lower abdomen. Patient tells me that this lasted for about 30 minutes but is now resolved. She did have some urinary frequency associated with this. No dysuria, hematuria, vaginal discharge. Patient also reports morning she had about 5 episodes of loose stool with nausea. No vomiting or fever Related Data Home Medications Medication Instructions Recorded Confirmed lorazepam 0.5 mg tablet 0.5 mg PO BEDTIME PRN 03/05/20 07/02/21 fexofenadine 60 mg-pseudoephedrine 1 tab PO Q12H PRN tab 06/08/21 07/02/21 ER 120 mg tablet,ext.release,12 hr (Liliam-D 12 Hour) hydroxyzine HCl 25 mg tablet 25 - 50 mg PO TID PRN 06/08/21 06/08/21 omeprazole 20 mg capsule,delayed 20 mg PO DAILY 06/08/21 07/02/21 release Previous Rx's Medication Instructions Recorded albuterol sulfate 90 mcg/actuation 2 puff INHALATION Q4-6H PRN #6.7 g 02/26/20 aerosol inhaler levothyroxine 137 mcg tablet 137 mcg PO DAILY 90 Days #90 tab 03/05/20 cholecalciferol (vitamin D3) 50 100 mcg PO DAILY 30 Days #60 cap 06/11/21 mcg (2,000 unit) capsule hydroxyzine HCl 50 mg tablet 50 mg PO QID PRN #14 tab 09/09/21 Allergies Allergy/AdvReac Type Severity Reaction Status Date / Time diphenhydramine Allergy Intermediate SEVERE Verified 07/02/21 09:24 [From BENADRYL] LETHARGY Review of Systems Review of Systems: Review of systems is overwhelmingly positive Yes all other systems are reviewed and are negative Constitutional: Constitutional: Reports no additional constitutional complaints, Denies body ache(s), Denies chills, Denies fever(s), Denies headache(s) and Denies weakness Eyes: Eyes: Reports no additional eye complaints and Denies change in vision ENT: Reports system reviewed and no additional complaints, except as documented, Denies dizziness, Denies headache(s), Denies nasal congestion, Denies nasal discharge and Denies neck pain Cardiovascular: Cardiovascular: Reports no additional cardiovascular complaints, Reports chest pain, Denies leg edema and Denies dyspnea Comments: +arm pain Respiratory: Respiratory: Reports no additional respiratory complaints, Denies cough and Denies dyspnea Gastrointestinal: Gastrointestinal: Reports no additional gastrointestinal complaints, Reports abdominal pain, Reports diarrhea, Reports nausea and Denies vomiting Genitourinary: Genitourinary: Reports no additional female genitourinary complaints and Denies urinary incontinence Musculoskeletal: Musculoskeletal: Reports no additional musculoskeletal complaints, Denies back pain, Denies arthralgias, Denies joint swelling, Denies neck pain, Denies numbness and Denies tingling Integumentary/Breasts: Skin/Breast: Reports system reviewed and no additional complaints, except as docu and Denies rash Comments: skin itching Neurologic: Reports system reviewed and no additional complaints, except as documented, Denies dizziness, Denies headache(s), Denies numbness, Denies tingling and Denies weakness PMFSH Past Medical History Attestation statement: The following information was validated with the patient. Source: old records reviewed and nursing notes reviewed Medical History Asthma Depression Hypothyroidism Thyroid activity decreased Vitamin D deficiency Surgical History Hx of gastric bypass Hx of lithotripsy Family History Family History Father Leukemia Cancer Mother Diabetes mellitus Hypertension Social History Social History Alcohol intake: never Patient Tobacco Use Status: Never used Tobacco Advance Directives: No Advance Directives Information Provided: No Physical Exam ED Vital Signs: Vital Signs - 24 hr 09/09/21 13:26 09/09/21 15:29 Temperature 97.3 F Pulse Rate 72 70 Respiratory Rate 18 18 Blood Pressure 113/79 124/55 L Pulse Oximetry 100 97 BMI result Body Mass Index 28.0 Const General: cooperative, healthy appearing, comfortable and no acute distress Orientation/consciousness: patient oriented x3 Limitations: language barrier HENMT Head: Yes normal to inspection Ears: hearing grossly normal bilaterally and TM's normal bilaterally General nose exam: Normal external nose present Face and sinus: Yes normal facial exam Mouth: Normal oral and palatal mucosa present Teeth and gingiva: dentition normal Throat: Yes posterior oropharynx normal, Yes tonsils normal and Yes uvula midline Eyes General: appearance normal, both eyes and all related structures Pupils: Equal, round and reactive pupils present Neck Neck: Yes normal visual inspection, Yes full ROM, Yes no lymphadenopathy and Yes no meningeal signs Chest Chest palpation & inspection: normal inspection of the chest Resp Effort & Inspection: normal respiratory effort Auscultation: clear to auscultation bilaterally Cardio Rate: regular rate Rhythm: regular rhythm Peripheral pulses: Peripheral pulses 2+ throughout GI Inspection: Yes normal to inspection Palpation (GI): Soft to palpation and nontender General: Yes no CVA tenderness Back/Spine/Pelvis Back: no CVA tenderness Thoracic/Lumbar Spine: thoracic and lumbar spine normal to inspection Skin General skin exam: no rashes or lesions noted Neuro General: patient oriented x3, moves all extremities and no meningeal signs Cranial nerves: Yes Equal, round and reactive pupils present Extrem General: Yes normal to inspection, Yes no pedal edema and Yes no calf tenderness Course Course Course Narrative: 51-year-old female here with multiple complaints. Patient reports itching generalized for 2 weeks despite taking clear to did with no rash noted on exam. Was supposed to have outpatient labs by her primary care doctor but tells me that her doctor never called her to get these done. Patient also reports some chest pain since last night with arm pain. No associated shortness of breath, dizziness, nausea, diaphoresis. Today after voiding had some left lower abdomen pain which is now resolved. Patient did have some associated urinary frequency and diarrhea with nausea. On arrival the patient is alert oriented. She has no focal abdominal pain on exam. Her vitals are stable. She appears well. Will check labs, EKG, chest x-ray, UA, covid/flu testing Reevaluation(s) Reevaluation #1: Labs show no acute finding. EKG and chest x-ray are negative. UA is negative. COVID and flu testing is negative. I discussed findings with the patient. Her chest pain is atypical for ACS. Low concern for ACS with negative troponin, EKG and symptoms since last evening. Low concern for PE with no clinical findings concerning for DVT, no hypoxia, no tachypnea, no tachycardia. Patient also reported some lower abdominal pain with urinary frequency and diarrhea this m orning but has no focal abdominal pain on exam in tells me it is resolved. Her UA shows no signs of infection. Labs are unremarkable with no leukocytosis/fever. Low concern for acute abdomen. Also c/o generalized body itching with NO rash on exam. Patient can follow with her primary care in take hydroxyzine for itching as needed. Reviewed worrisome signs and symptoms of when to return to the emergency department. Comfortable discharge home. Time: 15:30 Medical Decision Making Medical Records Medical records reviewed: Yes I reviewed the patient's medical records. Lab Data Lab results reviewed: Yes I reviewed the patient's lab results. Result diagrams: 09/09/21 13:36 09/09/21 13:36 Labs: Lab Results 09/09/21 09/09/21 09/09/21 Range/Units 13:34 13:34 13:34 WBC (4.8-10.8) X10*3/uL RBC (4.20-5.50) X10*6/uL Hgb (12.0-16.0) g/dl Hct (37.0-47.0) % MCV (80.0-98.0) fL MCH (27.0-33.0) pg MCHC (31.0-35.0) g/dl RDW (11.0-16.0) % Plt Count (160-400) X10*3/uL MPV (9.4-12.3) fL Immature Gran % (Auto) (0.0-0.4) % Neut % (Auto) (45-73) % Lymph % (Auto) (20-40) % [place] % (Auto) (2-11) % Eos % (Auto) (0-4) % Baso % (Auto) (0-2) % Lymph # (Auto) (1.2-4.9) X10*3/uL [place] # (Auto) (0.1-1.2) X10*3/uL Eos # (Auto) (0.0-0.4) X10*3/uL Baso # (Auto) (0.0-0.2) X10*3/uL Abs Immat Gran (auto) (0.00-0.03) X10*3/uL Absolute Neuts (auto) (2.0-8.3) x10*3/uL Absolute Nucleated RBC (0.0-0.012) X10*3/uL Nucleated RBC % (auto) (0.0-0.2) /100WBC Sodium (135-145) mmol/L Potassium (3.3-5.1) mmol/L Chloride (96-108) mmol/L Carbon Dioxide (22-29) mmol/L Anion Gap (12-20) BUN (9-16) mg/dL Creatinine (0.5-1.4) mg/dL Estim Creat Clear Calc Estimated GFR Random Glucose (60-115) mg/dL Calcium (8.4-10.2) mg/dL Total Bilirubin (0.0-1.0) mg/dL AST (5-31) U/L ALT (0-31) U/L Alkaline Phosphatase (39-117) U/L Troponin I High Sens (<3.5-17.0) ng/L Total Protein (6.5-8.0) g/dL Albumin (3.5-5.0) g/dL Urine Color YELLOW Urine Appearance CLEAR Urine pH 6.5 (5.0-8.0) Ur Specific [place] 1.010 (1.005-1.025) Urine Protein NEG (NEG-TRACE) MG/DL Urine Glucose (UA) NEG (NEG) MG/DL Urine Ketones NEG (NEG) MG/DL Urine Blood NEG (NEG) Urine Nitrite NEG (NEG) Ur Leukocyte Esterase NEG (NEG) COVID-19 (CRISSY) Negative (Negative) COVID-19 Clin Com See Note Influenza Type A (CHUCKIE) Negative (Negative) Influenza Type B (CHUCKIE) Negative (Negative) Influenza A & B Note See Note 09/09/21 09/09/21 09/09/21 Range/Units 13:36 13:36 13:36 WBC 7.3 (4.8-10.8) X10*3/uL RBC 4.56 (4.20-5.50) X10*6/uL Hgb 13.8 (12.0-16.0) g/dl Hct 42.2 (37.0-47.0) % MCV 92.5 (80.0-98.0) fL MCH 30.3 (27.0-33.0) pg MCHC 32.7 (31.0-35.0) g/dl RDW 13.5 (11.0-16.0) % Plt Count 176 (160-400) X10*3/uL MPV 10.8 (9.4-12.3) fL Immature Gran % (Auto) 0.1 (0.0-0.4) % Neut % (Auto) 67.0 (45-73) % Lymph % (Auto) 22.0 (20-40) % [place] % (Auto) 8.2 (2-11) % Eos % (Auto) 2.2 (0-4) % Baso % (Auto) 0.5 (0-2) % Lymph # (Auto) 1.6 (1.2-4.9) X10*3/uL [place] # (Auto) 0.6 (0.1-1.2) X10*3/uL Eos # (Auto) 0.2 (0.0-0.4) X10*3/uL Baso # (Auto) 0.0 (0.0-0.2) X10*3/uL Abs Immat Gran (auto) 0.01 (0.00-0.03) X10*3/uL Absolute Neuts (auto) 4.9 (2.0-8.3) x10*3/uL Absolute Nucleated RBC 0.000 (0.0-0.012) X10*3/uL Nucleated RBC % (auto) 0.0 (0.0-0.2) /100WBC Sodium 141 (135-145) mmol/L Potassium 4.8 (3.3-5.1) mmol/L Chloride 107 (96-108) mmol/L Carbon Dioxide 27 (22-29) mmol/L Anion Gap 12 (12-20) BUN 7 L (9-16) mg/dL Creatinine 0.77 (0.5-1.4) mg/dL Estim Creat Clear Calc 91.6 Estimated GFR > 60 Random Glucose 88 (60-115) mg/dL Calcium 9.4 D (8.4-10.2) mg/dL Total Bilirubin 0.5 (0.0-1.0) mg/dL AST 25 D (5-31) U/L ALT 11 (0-31) U/L Alkaline Phosphatase 131 H D (39-117) U/L Troponin I High Sens < 3.5 (<3.5-17.0) ng/L Total Protein 7.0 (6.5-8.0) g/dL Albumin 4.1 (3.5-5.0) g/dL Urine Color Urine Appearance Urine pH (5.0-8.0) Ur Specific [place] (1.005-1.025) Urine Protein (NEG-TRACE) MG/DL Urine Glucose (UA) (NEG) MG/DL Urine Ketones (NEG) MG/DL Urine Blood (NEG) Urine Nitrite (NEG) Ur Leukocyte Esterase (NEG) COVID-19 (CRISSY) (Negative) COVID-19 Clin Com Influenza Type A (CHUCKIE) (Negative) Influenza Type B (CHUCKIE) (Negative) Influenza A & B Note Imaging Data Chest x-ray: Attestation: I personally reviewed and interpreted this imaging study as follows: Radiologist's impression: EXAMINATION: XR CHEST CLINICAL INFORMATION: Chest pain COMPARISON: 01/18/2021 TECHNIQUE: Frontal view of the chest was obtained. FINDINGS: No significant abnormality is noted involving the heart, lungs, mediastinum, bony thorax or soft tissues. XR/XR chest 1V IMPRESSION: Unremarkable examination. ? ECG Data Attestation: I personally reviewed and interpreted this ECG as follows: Interpretation: Normal sinus rhythm with sinus arrhythmia with rate of 84, normal VT, normal QRS, normal QT Discharge Plan Discharge Clinical Impression: Atypical chest pain, Abdominal pain, Itching Patient Disposition: Home, Self-Care Instructions: Chest Pain (DC), Abdominal Pain (ED), Itchy Skin (ED) Additional Instructions: Your lab work, EKG and chest x-ray showed was that you are at low risk for a cardiac event You had no abdominal pain when you are in the emergency room You may continue Claritin. Add hydroxyzine. Follow-up with primary care doctor Prescriptions: New hydroxyzine HCl 50 mg tablet 50 mg PO QID PRN (Reason: itching) Qty: 14 0RF No Action cholecalciferol (vitamin D3) 50 mcg (2,000 unit) capsule 100 mcg PO DAILY 30 Days Qty: 60 11RF albuterol sulfate 90 mcg/actuation HFA aerosol inhaler 2 puff inhalation Q4-6H PRN (Reason: shortness of breath or wheezing) Qty: 6.7 0RF lorazepam 0.5 mg tablet 0.5 mg PO BEDTIME PRN0RF levothyroxine 137 mcg tablet 137 mcg PO DAILY 90 Days Qty: 90 3RF fexofenadine-pseudoephedrine [Liliam-D 12 Hour] 60-120 mg tablet extended release 12 hr 1 tab PO Q12H PRN0RF omeprazole 20 mg capsule,delayed release(DR/EC) 20 mg PO DAILY 0RF hydroxyzine HCl 25 mg tablet 25 - 50 mg PO TID PRN (Reason: anxiety) 0RF Referrals: Adriana Palencia MD [Primary Care Provider] - 1 week (ER follow-up) Interventions: ED Discharge Assessment Last Done: 09/09/21 15:29 Discharge Date/Time: 09/09/21 15:30 Print Language: [place] Citizen
[2021-09-09 15:29] VITALS: BP 124/55; PULSE 70; RESP 18; O2SAT 97
== END 2021-09-09 15:30 | disposition home or self-care (01) ==
LOC: HO.ED 15:17
PROVIDERS: Emergency Provider Emergency Medicine; PCP Internal Medicine
DX: R07.89 Other chest pain (principal); R10.32 Left lower quadrant pain; L29.9 Pruritus, unspecified; Z20.822 Contact with and (suspected) exposure to COVID-19
CPT/HCPCS: 36415; 71045; 80053; 81003; 84484; 85025; 87502; 87635; 93005; 99283

== ENCOUNTER 2021-12-02 13:50 | Outpatient (REF) | payer OTHER, SELFPAY ==
--- NOTE | ~2021-12-02 | XR_ITS ---
EXAMINATION: XR CHEST CLINICAL INFORMATION: Dyspnea COMPARISON: Chest x-ray 09/09/2021 TECHNIQUE: 2 views of the chest were obtained. FINDINGS: Cardiac silhouette is normal in size. The lungs are well aerated. There is no lobar consolidation. No pleural effusion or pneumothorax. No gross osseous abnormality. XR/XR chest 2V IMPRESSION: No acute pulmonary pathology.
== END 2021-12-02 13:51 | disposition home or self-care (01) ==
LOC: HO.XRAY 13:50
PROVIDERS: PCP Internal Medicine; Visit Provider Internal Medicine
DX: R06.09 Other forms of dyspnea (principal)
CPT/HCPCS: 71046

== ENCOUNTER → 2022-01-04 12:44 | Outpatient (BNVA) | payer OTHER, SELFPAY | PROVIDERS: PCP Internal Medicine; Visit Provider Obstetrics & Gynecology | DX: B00.9 Herpesviral infection, unspecified (principal); N95.0 Postmenopausal bleeding | CPT/HCPCS: 99212 ==

== ENCOUNTER 2022-01-14 14:23 | Outpatient (REF) | payer OTHER, SELFPAY ==
--- NOTE | ~2022-01-14 | US_ITS ---
EXAMINATION: US PELVIS CLINICAL INFORMATION: Postmenopausal bleeding. COMPARISON: Pelvic ultrasound dated 08/23/2019. TECHNIQUE: Ultrasound of the pelvis is performed using both transabdominal and transvaginal transducers along with Doppler. Transvaginal imaging is performed due to inadequate visualization transabdominally. FINDINGS: Uterus: The uterus is retroverted and measures 6.5 x 3.8 x 5.0 cm. The myometrium is heterogeneous. A Nabothian cyst is seen within the cervix. The double wall endometrial thickness is 5-6 mm. The uterus is smooth in contour and has normal myometrial echogenicity. Fibroids: There is 1 fibroid seen. 1. Location: Posterior upper body, myometrial. Size: 0.8 x 0.6 x 1.0 cm. Fibroid characteristics: Hypoechoic. Adnexa: Both ovaries are visualized. There is normal color flow to the adnexa. There is no ovarian torsion. There is no pelvic ascites or fluid collection. Right ovary measures 1.7 x 1.5 x 1.2 cm (volume 1.7 mL). Left ovary measures 2.2 x 1.7 x 2.3 cm (volume 4.4 mL). The left ovary contains a 1.0 x 0.7 x 0.9 cm physiologic follicle. US/US pelvic and transvaginal IMPRESSION: 1. A small uterine fibroid is seen. 2. A nabothian cyst is seen within the cervix. 3. No endometrial polyp is presently appreciated. The endometrial stripe thickness of 5-6 mm is at the upper limits of normal for a postmenopausal patient. Gynecology evaluation and management is recommended, with consideration for tissue sampling, if clinically indicated.
== END 2022-01-14 14:24 | disposition home or self-care (01) ==
LOC: HO.HMGCX 14:23
PROVIDERS: PCP Internal Medicine; Visit Provider Obstetrics & Gynecology
DX: N95.0 Postmenopausal bleeding (principal)
CPT/HCPCS: 76830; 76856

== ENCOUNTER 2022-02-03 13:41 | Outpatient (REF) | payer OTHER, SELFPAY | END 2022-02-03 13:42 | disposition home or self-care (01) | LOC: HO.LNP 13:41 | PROVIDERS: Visit Provider Obstetrics & Gynecology | DX: N95.0 Postmenopausal bleeding (principal); D25.9 Leiomyoma of uterus, unspecified | CPT/HCPCS: 58100; 88305; 99212 ==

== ENCOUNTER → 2022-02-24 12:45 | Outpatient (BNVA) | payer OTHER, SELFPAY | PROVIDERS: PCP Internal Medicine; Visit Provider Obstetrics & Gynecology | DX: N95.0 Postmenopausal bleeding (principal) | CPT/HCPCS: 99212 ==

== ENCOUNTER 2022-02-25 09:35 | Day surgery (SDC) | payer OTHER, SELFPAY ==
[2022-02-25] VITALS (7 sets, daily range): BP systolic 104–125; BP diastolic 46–63; PULSE 50–67; RESP 10–18; TEMP 36.1–37; O2SAT 98–100; BMI 31.5
[2022-02-25 10:14] LABS: UPreg QC Valid YES; Urine Pregnancy NEGATIVE (NEGATIVE)
--- NOTE | 2022-02-25 12:09 | MHC.SHP ---
Pre-Procedural Eval Section A Date of Service: 02/25/22 The patient is an INPATIENT: No Changes since office visit: No Cold of Flu in the past 2 weeks, No New Medical Problems, No Changes in Medication and No Patient answered all questions The History & Physical has been completed within 30 days and I have reviewed it.: Yes Section B Chief Complaint: Postmenopausal bleeding Allergies: Allergies Allergy/AdvReac Type Severity Reaction Status Date / Time diphenhydramine Allergy Intermediate SEVERE Verified 02/25/22 10:15 [From BENADRYL] LETHARGY Plan Diagnosis/Plan: Unchanged I have reviewed the history and physical and performed a pertinent physical examination on my patient. No changes have occurred unless specified.
--- NOTE | 2022-02-25 12:33 | HO.ANESPROP2 ---
[facility] Active Problems Active Problems: All Active Problems (Updated 02/25/22 @ 10:15 by Jesica Healy RN) COVID-19 (Acute) Well woman exam with routine gynecological exam (Acute) Cervical cancer screening (Acute) Potential exposure to STD (Acute) Herpes (Acute) Postmenopausal bleeding (Acute) Uterine myoma (Acute) Asthma (Acute) Depression (Acute) Vitamin D deficiency (Acute) Hypothyroidism (Acute) Past Medical History Medical History Asthma Depression Hypothyroidism Panic attacks Thyroid activity decreased Vitamin D deficiency Functional capacity: independent ambulation Patient : No Family History Family History Father Leukemia Cancer Mother Diabetes mellitus Hypertension Family history of problems with anesthesia: No Surgical History Surgical History Hx of gastric bypass Hx of lithotripsy History of Problems with Anesthesia: No Social History Social History Alcohol intake: never Patient Tobacco Use Status: Never used Tobacco Are you DNR?: No Advance Directives: No Advance Directives Information Provided: Yes Nutrition Risks: No Nutritional Risk Meds Allergies Allergy/AdvReac Type Severity Reaction Status Date / Time diphenhydramine Allergy Intermediate SEVERE Verified 02/25/22 10:15 [From JENELLE] LETHARGY Home Medications Medication Instructions Recorded Confirmed Last Taken Type lorazepam 0.5 mg tablet 0.5 mg PO BEDTIME PRN Anxiety 03/05/20 02/25/22 Unknown History hydroxyzine HCl 25 mg tablet 25 - 50 mg PO TID PRN anxiety 06/08/21 02/25/22 Unknown History omeprazole 20 mg capsule,delayed 20 mg PO DAILY 06/08/21 02/25/22 Unknown History release valacyclovir 500 mg tablet 500 mg PO DAILY 01/04/22 02/25/22 Unknown History Exam Exam Date and Time: February 25, 2022 1233 Height,Weight and Vital Signs: Height 5 ft 3 in Weight 80.739 kg Last Vital Signs Temp 98.6 F 02/25/22 10:51 Pulse 63 02/25/22 10:51 Resp 18 02/25/22 10:51 BP 109/46 L 02/25/22 10:51 Pulse Ox 98 02/25/22 10:51 O2 Del Method 02/25/22 10:51 Pertinent Lab Results Pertinent Lab Results: Laboratory Tests 02/25/22 10:00 Urine Test NEGATIVE Airway Mallampati Class: II TM Dist: >3cm Denture: Upper Heart: RRR Lungs: CTA Assessment and Plan Final Anesthetic Review Family History of Problems with Anesthesia: No History of Problems with Anesthesia: No ASA Class: II Final Preanesthetic Review: No Changes in Pt Med Stat, Meds/Allgs Chart Reviewed, Consent Obtained/Reviewed and Anes Risks/Benef Reviewed Patient Risk: Low Procedure Risk: Low Anesthetic Plan Anesthetic Plan: GA
--- NOTE | 2022-02-25 12:57 | P.BOP_ITS ---
Brief Operative Note Date of Service: 02/25/22 Pre-op diagnosis: Postmenopausal bleeding with possible polyp Post-op diagnosis: same (No evidence of endometrial polyp) Procedure: Hysteroscopy D&C Surgeon: Spencer Brock MD Anesthesia: GLMA Was an [employer] Professor used for this Procedure?: No Estimated blood loss (mL): 0 Pathology: other (Endometrial Scrapping. ) Condition: stable Disposition: PACU
--- NOTE | 2022-02-25 12:57 | W.PM.OPN ---
Operative Note Operative Note Date of Service: 02/25/22 Narrative: Preop Diagnosis: Post Menopausal bleeding with possible endometrial polyp Operation: Diagnostic Hysteroscopy, Dilataion & Curettage Post Op Diagnosis: Normal endometrial cavity no evidence of endometrial pathology QBL: Minimal Anesthesia: GLMA Surgeon: Spencer Brock MD Associate Technician: None Complication: None Pathology: Endometrial Scrapings Procedure: The patient was put in the dorsal lithotomy position, scrubbed, and draped in the usual manner. A sterile speculum was inserted in the patient's vagina. The anterior lip of the cervix was grasped with a single tooth tenaculum. The cervix was dilated up to 5 mm, then the scope was inserted in the patient's uterus. Inspection revealed Normal endometrial cavity. The Myosure Reach device was used; the scope was removed from the endometrial cavity , sharp curettings was carried on with minimal to moderate amount of tissues retrieved. At the end of the procedure, all instruments were taken out of the patient uterine and vaginal cavity. The single tooth tenaculum was removed and homeostasis was assured using pressure,. The patient tolerated the procedure well and was transferred to the PACU in a stable condition.
[2022-02-25] MEDS: Acetaminophen 325 MG TABLET 650 MG PO (13:56)
[2022-02-25] MEDS: Ketorolac Tromethamine 30 MG/ML VIAL 15 MG IVPUSH (13:57)
== END 2022-02-25 12:21 | disposition home or self-care (01) ==
PROVIDERS: Nurse Practitioner; PCP Internal Medicine; Visit Provider Obstetrics & Gynecology
PROC: 0UDB8ZZ Extraction of Endometrium, Via Natural or Artificial Opening Endoscopic (ICD-10-PCS; CPT 58558; principal; 2022-02-25 11:30)
DX: N95.0 Postmenopausal bleeding (principal); J45.909 Unspecified asthma, uncomplicated; F32.A Depression, unspecified; Z88.8 Allergy status to other drugs, medicaments and biological substances; E03.9 Hypothyroidism, unspecified; E55.9 Vitamin D deficiency, unspecified; Z79.899 Other long term (current) drug therapy; Z98.84 Bariatric surgery status
CPT/HCPCS: 58558; 81025; 88305; J1100; J1885; J2250; J2405; J3010

== ENCOUNTER 2022-02-28 15:43 | Emergency (ER) | payer OTHER, SELFPAY ==
--- NOTE | ~2022-02-28 | XR_ITS ---
EXAMINATION: XR CHEST CLINICAL INFORMATION: Right-sided chest pain COMPARISON: None TECHNIQUE: Frontal view of the chest was obtained. FINDINGS: Lungs clear. Heart and pulmonary vessels are normal. No congestive change. No pneumothorax. XR/XR chest 1V IMPRESSION: Unremarkable examination.
[2022-02-28 15:46] VITALS: BP 112/58; PULSE 81; RESP 18; TEMP 36.4; O2SAT 100; BMI 33.6
--- NOTE | 2022-02-28 15:46 | ED_ITS ---
HPI - General Adult General Chief complaint: Chest Pain <Alanis Pandey MD - Last Filed: 02/28/22 15:54> Stated complaint: polyps surgery removal 02/26 uterus pain <Alanis Pandey MD - Last Filed: 02/28/22 15:54> Time Seen by Provider: 02/28/22 20:37 <Alanis Pandey MD - Last Filed: 02/28/22 15:54> Source: patient <RADHA Gutierrez - Last Filed: 02/28/22 22:28> Mode of arrival: ambulatory <RADHA Gutierrez - Last Filed: 02/28/22 22:28> Limitations: no limitations <RADHA Gutierrez - Last Filed: 02/28/22 22:28> History of Present Illness HPI narrative: 52 year old female with PMH of asthma, depression, hypothyroidism, panic attacks and anxiety present to the ED c/o chest pain, anxiety and nervousness. She reports having uterine polyps removal on Monday and waking up from surgery with chest pain.She reports that the chest pain has been reportedly getting better but still endorses feeling anxious and nervous and denies any chest pain at the moment. She denies any headache, SOB, syncope, dizziness. <RADHA Hirsch - Last Filed: 02/28/22 22:28> Related Data Home medications: Home Medications Medication Instructions Recorded Confirmed lorazepam 0.5 mg tablet 0.5 mg PO BEDTIME PRN Anxiety 03/05/20 02/25/22 hydroxyzine HCl 25 mg tablet 25 - 50 mg PO TID PRN anxiety 06/08/21 02/25/22 omeprazole 20 mg capsule,delayed 20 mg PO DAILY 06/08/21 02/25/22 release valacyclovir 500 mg tablet 500 mg PO DAILY 01/04/22 02/25/22 Previous Rx's Medication Instructions Recorded albuterol sulfate 90 mcg/actuation 2 puff inhalation Q4-6H PRN 02/26/20 aerosol inhaler shortness of breath or wheezing #6.7 grams levothyroxine 137 mcg tablet 137 mcg PO DAILY 90 days #90 tabs 03/05/20 <Alanis Pandey MD - Last Filed: 02/28/22 15:54> Allergies/adverse reactions: Allergies Allergy/AdvReac Type Severity Reaction Status Date / Time diphenhydramine Allergy Intermediate SEVERE Verified 02/25/22 10:15 [From BENADRYL] LETHARGY <Alanis Pandey MD - Last Filed: 02/28/22 15:54> Review of Systems Review of Systems: Constitutional: No Fever, No Chills ENT/Mouth: No sore throat, No Rhinorrhea, No Swallowing Difficulty Eyes: No Eye Pain, No Swelling, No Redness Cardiovascular: +Chest Pain (Resolved) No SOB, No Orthopnea, No Edema Respiratory: No Cough, No Sputum, No Wheezing, No dyspnea Gastrointestinal: No Nausea, No Vomiting, No Diarrhea, No abdominal Pain Genitourinary: No Dysuria, No Urinary Frequency, No Hematuria Musculoskeletal: No joint pain, No Myalgias Skin: No Skin Lesions, No rash Neuro: No Weakness, No Numbness, No Dizziness, No Headache Psych: + Anxiety/Panic, No Depression <RADHA Gutierrez - Last Filed: 02/28/22 22:28> [facility] Past Medical History Attestation statement: The following information was validated with the patient. <RADHA Gutierrez - Last Filed: 02/28/22 22:28> Medical History: Medical History Asthma Depression Hypothyroidism Panic attacks Thyroid activity decreased Vitamin D deficiency <Alanis Pandey MD - Last Filed: 02/28/22 15:54> Surgical History: Surgical History Hx of gastric bypass Hx of lithotripsy <Alanis Pandey MD - Last Filed: 02/28/22 15:54> Family History Family History: Family History Father Leukemia Cancer Mother Diabetes mellitus Hypertension <Alanis Pandey MD - Last Filed: 02/28/22 15:54> Social History Social History: Social History Alcohol intake: never Patient Tobacco Use Status: Never used Tobacco Smoked in Last 30 Days: No Use of substances other than those prescribed or required for medical reasons: No Advance Directives: No Advance Directives Information Provided: Yes <Alanis Pandey MD - Last Filed: 02/28/22 15:54> Physical Exam ED Vital Signs: Vital Signs - 24 hr 02/28/22 15:46 02/28/22 20:50 02/28/22 22:00 Temperature 97.6 F 98.1 F 97.8 F Pulse Rate 81 68 56 Respiratory Rate 18 16 16 Blood Pressure 112/58 L 122/65 135/76 Pulse Oximetry 100 99 97 Oxygen Delivery Method Room Air Room Air Room Air BMI result Body Mass Index 33.6 <Alanis Pandey MD - Last Filed: 02/28/22 15:54> Vital Signs - 24 hr 02/28/22 15:46 02/28/22 20:50 02/28/22 22:00 Temperature 97.6 F 98.1 F 97.8 F Pulse Rate 81 68 56 Respiratory Rate 18 16 16 Blood Pressure 112/58 L 122/65 135/76 Pulse Oximetry 100 99 97 Oxygen Delivery Method Room Air Room Air Room Air BMI result Body Mass Index 33.6 <RADHA Gutierrez - Last Filed: 02/28/22 22:28> Appearance: Alert. Oriented X3. No acute distress. Eyes: Pupils equal, round and reactive to light. ENT: Pharynx normal. Neck: Normal inspection. Neck supple. CVS: Normal heart rate and rhythm. Pulses normal. Respiratory: No respiratory distress. Breath sounds normal. Abdomen: Soft and nontender. +BS x4 Skin: Skin warm and dry. Normal skin color. Normal skin turgor. No rashes. Extremities: No lower extremity edema. Neuro: Oriented X 3. No motor deficit. No sensory deficit. Psych: Nervous and anxious <RADHA Gutierrez - Last Filed: 02/28/22 22:28> Course Course Course Narrative: -triage -3 days had uterine polyps surgery (transvaginal surgery), shorly after had CP while pt was on recovery, pt informed anesthesiologist, pt told it was likely an anesthesia side effect, complaining of intermittent palpitations -pt c/o anxiety, no panic attacks today -no cp, only pressure -PMH: asthma, hyperthyroidism -PE: anxious, otherwise well appearing, normal breath sounds, normal S1s2, no reproducible chest pain, no abdominal pain -f/u labs/ imaging <Alanis Pandey MD - Last Filed: 02/28/22 15:54> Reevaluation(s) Reevaluation #1: feeling much better after ativan. remains CP free. stable for d/c. <RADHA Gutierrez - Last Filed: 02/28/22 22:28> Medications Administered Discontinued Medications Generic Name Dose Route Start Last Admin Trade Name Freq PRN Reason Stop Dose Admin Lorazepam 1 mg 02/28/22 21:07 02/28/22 21:43 Lorazepam 1 Mg Tablet PO 02/28/22 21:08 1 mg ONCE ONE Administration <Alanis Pandey MD - Last Filed: 02/28/22 15:54> Medications Administered Discontinued Medications Generic Name Dose Route Start Last Admin Trade Name Freq PRN Reason Stop Dose Admin Lorazepam 1 mg 02/28/22 21:07 02/28/22 21:43 Lorazepam 1 Mg Tablet PO 02/28/22 21:08 1 mg ONCE ONE Administration <RADHA Gutierrez - Last Filed: 02/28/22 22:28> Medical Decision Making MDM Narrative Medical decision making narrative: 52 year old female with PMH of asthma, depression, hypothyroidism, panic attacks and anxiety present to the ED c/o chest pain, anxiety and nervousness since Monday s/p uterine polyps removal. Still endorses feeling anxious and nervous and denies any chest pain at the moment. On exam, VSS unremarkable, lung CTA,EKG unremarkable. Concern for Panic attack vs Anxiety. Low suspicion for ACS , PE,unstable/stable angina, Allergic reaction Plan: EKG, labs, Ativan <RADHA Gutierrez - Last Filed: 02/28/22 22:28> Lab Data Result diagrams: : 02/28/22 16:26 02/28/22 16:26 <Alanis Pandey MD - Last Filed: 02/28/22 15:54> Labs: Lab Results 02/28/22 02/28/22 02/28/22 Range/Units 16:26 16:26 16:26 WBC 6.6 (4.8-10.8) X10*3/uL RBC 4.39 (4.20-5.50) X10*6/uL Hgb 13.1 (12.0-16.0) g/dl Hct 40.3 (37.0-47.0) % MCV 91.8 (80.0-98.0) fL MCH 29.8 (27.0-33.0) pg MCHC 32.5 (31.0-35.0) g/dl RDW 13.2 (11.0-16.0) % Plt Count 177 (160-400) X10*3/uL MPV 10.8 (9.4-12.3) fL Immature Gran % (Auto) 0.3 (0.0-0.4) % Neut % (Auto) 58.9 (45-73) % Lymph % (Auto) 29.8 (20-40) % [place] % (Auto) 8.3 (2-11) % Eos % (Auto) 2.1 (0-4) % Baso % (Auto) 0.6 (0-2) % Lymph # (Auto) 2.0 (1.2-4.9) X10*3/uL [place] # (Auto) 0.6 (0.1-1.2) X10*3/uL Eos # (Auto) 0.1 (0.0-0.4) X10*3/uL Baso # (Auto) 0.0 (0.0-0.2) X10*3/uL Abs Immat Gran (auto) 0.02 (0.00-0.03) X10*3/uL Absolute Neuts (auto) 3.9 (2.0-8.3) x10*3/uL Absolute Nucleated RBC 0.000 (0.0-0.012) X10*3/uL Nucleated RBC % (auto) 0.0 (0.0-0.2) /100WBC Sodium 141 (135-145) mmol/L Potassium 4.6 (3.3-5.1) mmol/L Chloride 105 (96-108) mmol/L Carbon Dioxide 26 (22-29) mmol/L Anion Gap 15 (12-20) BUN 8 L (9-16) mg/dL Creatinine 0.75 (0.5-1.4) mg/dL Estim Creat Clear Calc 91.3 Estimated GFR > 60 Random Glucose 99 (60-115) mg/dL Calcium 8.9 (8.4-10.2) mg/dL Troponin I High Sens < 3.5 (<3.5-17.0) ng/L B-Natriuretic Peptide (<100) pg/mL COVID-19 (CR[facility]) (Negative) COVID-19 Clin Com 02/28/22 02/28/22 Range/Units 16:26 16:26 WBC (4.8-10.8) X10*3/uL RBC (4.20-5.50) X10*6/uL Hgb (12.0-16.0) g/dl Hct (37.0-47.0) % MCV (80.0-98.0) fL MCH (27.0-33.0) pg MCHC (31.0-35.0) g/dl RDW (11.0-16.0) % Plt Count (160-400) X10*3/uL MPV (9.4-12.3) fL Immature Gran % (Auto) (0.0-0.4) % Neut % (Auto) (45-73) % Lymph % (Auto) (20-40) % [place] % (Auto) (2-11) % Eos % (Auto) (0-4) % Baso % (Auto) (0-2) % Lymph # (Auto) (1.2-4.9) X10*3/uL [place] # (Auto) (0.1-1.2) X10*3/uL Eos # (Auto) (0.0-0.4) X10*3/uL Baso # (Auto) (0.0-0.2) X10*3/uL Abs Immat Gran (auto) (0.00-0.03) X10*3/uL Absolute Neuts (auto) (2.0-8.3) x10*3/uL Absolute Nucleated RBC (0.0-0.012) X10*3/uL Nucleated RBC % (auto) (0.0-0.2) /100WBC Sodium (135-145) mmol/L Potassium (3.3-5.1) mmol/L Chloride (96-108) mmol/L Carbon Dioxide (22-29) mmol/L Anion Gap (12-20) BUN (9-16) mg/dL Creatinine (0.5-1.4) mg/dL Estim Creat Clear Calc Estimated GFR Random Glucose (60-115) mg/dL Calcium (8.4-10.2) mg/dL Troponin I High Sens (<3.5-17.0) ng/L B-Natriuretic Peptide 114 H (<100) pg/mL COVID-19 (CRISSY) Negative (Negative) COVID-19 Clin Com See Note <Alanis Pandey MD - Last Filed: 02/28/22 15:54> Lab Results 02/28/22 02/28/22 02/28/22 Range/Units 16:26 16:26 16:26 WBC 6.6 (4.8-10.8) X10*3/uL RBC 4.39 (4.20-5.50) X10*6/uL Hgb 13.1 (12.0-16.0) g/dl Hct 40.3 (37.0-47.0) % MCV 91.8 (80.0-98.0) fL MCH 29.8 (27.0-33.0) pg MCHC 32.5 (31.0-35.0) g/dl RDW 13.2 (11.0-16.0) % Plt Count 177 (160-400) X10*3/uL MPV 10.8 (9.4-12.3) fL Immature Gran % (Auto) 0.3 (0.0-0.4) % Neut % (Auto) 58.9 (45-73) % Lymph % (Auto) 29.8 (20-40) % [place] % (Auto) 8.3 (2-11) % Eos % (Auto) 2.1 (0-4) % Baso % (Auto) 0.6 (0-2) % Lymph # (Auto) 2.0 (1.2-4.9) X10*3/uL [place] # (Auto) 0.6 (0.1-1.2) X10*3/uL Eos # (Auto) 0.1 (0.0-0.4) X10*3/uL Baso # (Auto) 0.0 (0.0-0.2) X10*3/uL Abs Immat Gran (auto) 0.02 (0.00-0.03) X10*3/uL Absolute Neuts (auto) 3.9 (2.0-8.3) x10*3/uL Absolute Nucleated RBC 0.000 (0.0-0.012) X10*3/uL Nucleated RBC % (auto) 0.0 (0.0-0.2) /100WBC Sodium 141 (135-145) mmol/L Potassium 4.6 (3.3-5.1) mmol/L Chloride 105 (96-108) mmol/L Carbon Dioxide 26 (22-29) mmol/L Anion Gap 15 (12-20) BUN 8 L (9-16) mg/dL Creatinine 0.75 (0.5-1.4) mg/dL Estim Creat Clear Calc 91.3 Estimated GFR > 60 Random Glucose 99 (60-115) mg/dL Calcium 8.9 (8.4-10.2) mg/dL Troponin I High Sens < 3.5 (<3.5-17.0) ng/L B-Natriuretic Peptide (<100) pg/mL COVID-19 ([facility]) (Negative) COVID-19 Clin Com 02/28/22 02/28/22 Range/Units 16:26 16:26 WBC (4.8-10.8) X10*3/uL RBC (4.20-5.50) X10*6/uL Hgb (12.0-16.0) g/dl Hct (37.0-47.0) % MCV (80.0-98.0) fL MCH (27.0-33.0) pg MCHC (31.0-35.0) g/dl RDW (11.0-16.0) % Plt Count (160-400) X10*3/uL MPV (9.4-12.3) fL Immature Gran % (Auto) (0.0-0.4) % Neut % (Auto) (45-73) % Lymph % (Auto) (20-40) % [place] % (Auto) (2-11) % Eos % (Auto) (0-4) % Baso % (Auto) (0-2) % Lymph # (Auto) (1.2-4.9) X10*3/uL [place] # (Auto) (0.1-1.2) X10*3/uL Eos # (Auto) (0.0-0.4) X10*3/uL Baso # (Auto) (0.0-0.2) X10*3/uL Abs Immat Gran (auto) (0.00-0.03) X10*3/uL Absolute Neuts (auto) (2.0-8.3) x10*3/uL Absolute Nucleated RBC (0.0-0.012) X10*3/uL Nucleated RBC % (auto) (0.0-0.2) /100WBC Sodium (135-145) mmol/L Potassium (3.3-5.1) mmol/L Chloride (96-108) mmol/L Carbon Dioxide (22-29) mmol/L Anion Gap (12-20) BUN (9-16) mg/dL Creatinine (0.5-1.4) mg/dL Estim Creat Clear Calc Estimated GFR Random Glucose (60-115) mg/dL Calcium (8.4-10.2) mg/dL Troponin I High Sens (<3.5-17.0) ng/L B-Natriuretic Peptide 114 H (<100) pg/mL COVID-19 ([facility]) Negative (Negative) COVID-19 Clin Com See Note <RADHA Gutierrez - Last Filed: 02/28/22 22:28> ECG Data Attestation: I personally reviewed and interpreted this ECG as follows: <RADHA Gutierrez - Last Filed: 02/28/22 22:28> Prior ECG tracings: available for review <RADHA Gutierrez - Last Filed: 02/28/22 22:28> Interpretation: normal sinus rhythm, HR 69 bpm, normal CT interval, normal QTC, no ST segment elevation or depression <RADHA Gutierrez - Last Filed: 02/28/22 22:28> Discharge Plan Discharge Clinical Impression: Panic attack <Alanis Pandey MD - Last Filed: 02/28/22 15:54> Patient Disposition: Home, Self-Care <Alanis Pandey MD - Last Filed: 02/28/22 15:54> Instructions: Panic Attack (ED) <Alanis Pandey MD - Last Filed: 02/28/22 15:54> Additional Instructions: You symptoms were most likely due to a panic attack. Your labs were unremarkable at the ED today. Your were given Lorazepam for alleviation of your symptoms. If your symptoms come back or worsen please come back to the ED. Follow up with your PCP if your symptoms persists <Alanis Pandey MD - Last Filed: 02/28/22 15:54> Prescriptions: No Action albuterol sulfate 90 mcg/actuation HFA aerosol inhaler 2 puff inhalation Q4-6H PRN (Reason: shortness of breath or wheezing) Qty: 6.7 0RF lorazepam 0.5 mg tablet 0.5 mg PO BEDTIME PRN (Reason: Anxiety) levothyroxine 137 mcg tablet 137 mcg PO DAILY 90 Days Qty: 90 3RF omeprazole 20 mg capsule,delayed release(DR/EC) 20 mg PO DAILY hydroxyzine HCl 25 mg tablet 25 - 50 mg PO TID PRN (Reason: anxiety) valacyclovir 500 mg tablet 500 mg PO DAILY <Alanis Pandey MD - Last Filed: 02/28/22 15:54> Print Language: Kosovan <Alanis Pandey MD - Last Filed: 02/28/22 15:54>
--- NOTE | 2022-02-28 15:50 | ECG_ITS ---
Test Reason : CHEST PAIN Blood Pressure : / mmHG Vent. Rate : 069 BPM Atrial Rate : 069 BPM P-R Int : 150 ms QRS Dur : 078 ms QT Int : 402 ms P-R-T Axes : 036 -02 038 degrees QTc Int : 430 ms Normal sinus rhythm Normal ECG When compared with ECG of 09-SEP-2021 11:48, No significant change was found Referred By: Alanis Pandey Electronically Signed By:PATEL LAWRENCE MD
[2022-02-28 16:42] LABS: MANUAL DIFF FLAG NO
[2022-02-28 16:45] LABS: Basophils Percent Auto 0.6 % (0-2); Eosinophils Absolute Auto 0.1 X10*3/uL (0.0-0.4); Eosinophils Percent Auto 2.1 % (0-4); Hematocrit 40.3 % (37.0-47.0); Hemoglobin 13.1 g/dl (12.0-16.0); Imm Gran Abs Auto 0.02 X10*3/uL (0.00-0.03); Imm Gran Pct Auto 0.3 % (0.0-0.4); Lymphocytes Percent Auto 29.8 % (20-40); Mean Corpuscular HGB Conc 32.5 g/dl (31.0-35.0); Mean Corpuscular Hemoglobin 29.8 pg (27.0-33.0); Mean Corpuscular Volume 91.8 fL (80.0-98.0); Mean Platelet Volume 10.8 fL (9.4-12.3); Monocytes Absolute Auto 0.6 X10*3/uL (0.1-1.2); Monocytes Percent Auto 8.3 % (2-11); Neutrophils Absolute Auto 3.9 x10*3/uL (2.0-8.3); Neutrophils Percent Auto 58.9 % (45-73); Platelet Count 177 X10*3/uL (160-400); Red Blood Count 4.39 X10*6/uL (4.20-5.50); Red Cell Distribution Width 13.2 % (11.0-16.0); White Blood Count 6.6 X10*3/uL (4.8-10.8)
[2022-02-28 17:00] LABS: Anion Gap 15 (12-20); Blood Urea Nitrogen 8 mg/dL (9-16); COVID-19 Test Negative (Negative); Calcium 8.9 mg/dL (8.4-10.2); Carbon Dioxide 26 mmol/L (22-29); Chloride 105 mmol/L (96-108); Creatinine Clr Calc Pharmacy 91.3; Estimated Glomerular Filt Rate > 60; Glucose Random 99 mg/dL (60-115); IDNOW Serial# 16C4AD1C; Potassium 4.6 mmol/L (3.3-5.1); Sodium 141 mmol/L (135-145)
[2022-02-28 17:06] LABS: B Type Natriuretic Peptide 114 pg/mL (<100); Troponin-I High Sensitivity < 3.5 ng/L (<3.5-17.0)
[2022-02-28 20:48] VITALS: PULSE 71
[2022-02-28 20:50] VITALS: BP 122/65; PULSE 68; RESP 16; TEMP 36.7; O2SAT 99
[2022-02-28] MEDS: LORazepam 1 MG TABLET PO (21:43)
[2022-02-28 22:00] VITALS: BP 135/76; PULSE 56; RESP 16; TEMP 36.6; O2SAT 97
== END 2022-02-28 22:39 | disposition home or self-care (01) ==
PROVIDERS: Emergency Medicine; Emergency Provider Internal Medicine; PCP Internal Medicine
DX: F41.0 Panic disorder [episodic paroxysmal anxiety] (principal); Z20.822 Contact with and (suspected) exposure to COVID-19
CPT/HCPCS: 36415; 71045; 80048; 83880; 84484; 85025; 87635; 93005; 99283; 99285

== ENCOUNTER → 2022-03-14 13:03 | Outpatient (BNVA) | payer OTHER, SELFPAY | PROVIDERS: Visit Provider Obstetrics & Gynecology | DX: N95.0 Postmenopausal bleeding (principal) | CPT/HCPCS: 99212 ==

== ENCOUNTER 2022-05-17 02:14 | Emergency (ER) | payer OTHER, SELFPAY ==
[2022-05-17 02:29] VITALS: BP 150/64; PULSE 72; RESP 16; TEMP 36.3; O2SAT 100; BMI 32.4
[2022-05-17 02:41] LABS: Basophils Percent Auto 0.3 % (0-2); Eosinophils Absolute Auto 0.3 X10*3/uL (0.0-0.4); Eosinophils Percent Auto 4.2 % (0-4); Imm Gran Abs Auto 0.01 X10*3/uL (0.00-0.03); Imm Gran Pct Auto 0.2 % (0.0-0.4); Lymphocytes Absolute Auto 2.8 X10*3/uL (1.2-4.9); Lymphocytes Percent Auto 47.4 % (20-40); MANUAL DIFF FLAG NO; Mean Corpuscular HGB Conc 33.3 g/dl (31.0-35.0); Mean Corpuscular Hemoglobin 29.9 pg (27.0-33.0); Mean Corpuscular Volume 89.7 fL (80.0-98.0); Mean Platelet Volume 10.5 fL (9.4-12.3); Monocytes Absolute Auto 0.6 X10*3/uL (0.1-1.2); Monocytes Percent Auto 9.7 % (2-11); Neutrophils Absolute Auto 2.3 x10*3/uL (2.0-8.3); Neutrophils Percent Auto 38.2 % (45-73); Platelet Count 159 X10*3/uL (160-400); Red Blood Count 4.35 X10*6/uL (4.20-5.50); Red Cell Distribution Width 12.7 % (11.0-16.0)
[2022-05-17 02:48] VITALS: BP 139/65; PULSE 62; RESP 13; TEMP 36.6; O2SAT 98
[2022-05-17 02:54] LABS: Anion Gap 13 (12-20); Blood Urea Nitrogen 19 mg/dL (9-16); Calcium 8.8 mg/dL (8.4-10.2); Carbon Dioxide 22 mmol/L (22-29); Chloride 109 mmol/L (96-108); Creatinine Clr Calc Pharmacy 96.8; Estimated Glomerular Filt Rate > 60; Glucose Random 120 mg/dL (60-115); Potassium 3.9 mmol/L (3.3-5.1); Sodium 140 mmol/L (135-145)
[2022-05-17 03:18] LABS: Influenza A PCR NEGATIVE (Negative); Influenza B PCR NEGATIVE (Negative); Resp Syncy Virus RNA Qual PCR NEGATIVE (Negative); SARS COV2 PCR INHOUSE NEGATIVE (Negative)
--- NOTE | 2022-05-17 04:40 | ED.GENADULT ---
HPI - General Adult General Chief complaint: Dyspnea Stated complaint: difficulty breathing Time Seen by Provider: 05/17/22 04:25 Source: patient Mode of arrival: ambulatory Limitations: no limitations History of Present Illness HPI narrative: Patient comes to the emergency room complaining of waking up with palpitations, feeling very anxious, feeling that her throat was closing. Patient states that she has had panic attacks in the past it feels very similar. Patient states that over the last days she has been feeling like she is about to get diarrhea but she has not gotten any liquid bowel movements. Patient states she feels strange at times. While discussing her H&P, patient mentioned that the only thing that is new, is that 5 days ago she saw on TV that lorazepam is addictive and people should avoid taking it. Patient has been taking 0.5 mg of lorazepam and hydroxyzine at night for sleep for 10+ years. However, patient tried to follow the advice that was given on television, and patient decided to stop using lorazepam. Last dose was 5 nights ago. Related Data Home Medications Medication Instructions Recorded Confirmed lorazepam 0.5 mg tablet 0.5 mg PO BEDTIME PRN Anxiety 03/05/20 02/25/22 hydroxyzine HCl 25 mg tablet 25 - 50 mg PO TID PRN anxiety 06/08/21 02/25/22 omeprazole 20 mg capsule,delayed 20 mg PO DAILY 06/08/21 02/25/22 release valacyclovir 500 mg tablet 500 mg PO DAILY 01/04/22 02/25/22 Previous Rx's Medication Instructions Recorded albuterol sulfate 90 mcg/actuation 2 puff inhalation Q4-6H PRN 02/26/20 aerosol inhaler shortness of breath or wheezing #6.7 grams levothyroxine 137 mcg tablet 137 mcg PO DAILY 90 days #90 tabs 03/05/20 Allergies Allergy/AdvReac Type Severity Reaction Status Date / Time diphenhydramine Allergy Intermediate SEVERE Verified 05/17/22 02:28 [From BENMADISONL] LETHARGY Review of Systems Review of Systems: Constitutional : No Weight loss, No Fever, No Chills, No Night Sweats, No Fatigue, No Malaise ENT/Mouth : No Hearing loss, No Ear Pain, No Nasal Congestion, No Sinus Pain, No Hoarseness, No sore throat, No Rhinorrhea, No Swallowing Difficulty Eyes: No Eye Pain, No Swelling, No Redness, No Foreign Body, No Discharge, No Vision Changes Cardiovascular : No Chest Pain, No SOB, No Dyspnea on Exertion, No Orthopnea, No Edema, complaining of Palpitations Respiratory : No Cough, No Sputum, No Wheezing, No Smoke Exposure, No Dyspnea Gastrointestinal : No Nausea, No Vomiting, No Diarrhea, No Constipation, No abdominal Pain, No Hematochezia, No Melena Genitourinary : no irregular bleeding, No Dysuria, No Urinary Frequency, No Hematuria, No Urinary Incontinence, No Urgency, No Flank Pain, No Urinary Flow Changes, No Hesitancy Musculoskeletal : No joint pain, No Myalgias, No Joint Swelling Skin : No Skin Lesions, No rash Neuro : No Weakness, No Numbness, No Paresthesias, No Loss of Consciousness, No Dizziness, No Headache Psych : Anxiety and possible panic attack No Depression, No SI/HI/AH/VH, No Social Issues, Heme/Lymph: No Bruising, No Bleeding,No Lymphadenopathy Endocrine : No Polyuria, No Polydipsia, No Temperature Intolerance PMFSH Past Medical History Medical History Asthma Depression Hypothyroidism Panic attacks Thyroid activity decreased Vitamin D deficiency Surgical History Hx of gastric bypass Hx of lithotripsy Family History Family History Father Leukemia Cancer Mother Diabetes mellitus Hypertension Social History Social History Household Members: Spouse Housing: Apartment Alcohol intake: never Patient Tobacco Use Status: Never used Tobacco Advance Directives: No Current occupational status: unemployed Sexual orientation: Straight/Heterosexual Gender identity: Female Physical Exam ED Vital Signs: Vital Signs - 24 hr 05/17/22 02:29 05/17/22 02:48 05/17/22 06:24 Temperature 97.4 F 97.9 F Pulse Rate 72 62 59 Respiratory Rate 16 13 16 Blood Pressure 150/64 H 139/65 122/61 Pulse Oximetry 100 98 98 Oxygen Delivery Method Room Air Room Air Room Air BMI result Body Mass Index 32.4 Const Other: Appearance: Alert. Oriented X3. No acute distress. Eyes: Pupils equal, round and reactive to light. ENT: Pharynx normal. Neck: Normal inspection. Neck supple. No lymph nodes noted. No crepitus CVS: Normal heart rate and rhythm. Pulses normal. Normal S1 and S2 Respiratory: No respiratory distress. Breath sounds normal. No Wheezing. No rales Abdomen: Soft and nontender. No rigidity. No distention. Skin: Skin warm and dry. Normal skin color. Normal skin turgor. Extremities: No lower extremity edema. No Lacerations. No Rash Neuro: Oriented X 3. No motor deficit. No sensory deficit. Moving all extremities. No slurred speech. CN 2 through 12 grossly intact Psych: calm, cooperative, normal affect Course Course Course Narrative: -patient's hematology and chemistry within normal limits. Troponin pending. EKG pending. -after the above-mentioned conversation had with the patient, patient is likely withdrawing from benzodiazepines. I discussed with the patient that stopping the lorazepam abruptly can cause seizures. This time, I gave the patient her regular dose of lorazepam 0.5 mg to prevent her going into full withdrawal or get a seizure. I discussed with the patient that if she wishes to discontinue taking benzodiazepines, she needs to do so gradually. Patient will contact her PCP and come up with a plan to decrease her benzodiazepine intake over several weeks Medications Administered Discontinued Medications Generic Name Dose Route Start Last Admin Trade Name oNe PRN Reason Stop Dose Admin Lorazepam 0.5 mg 05/17/22 04:33 05/17/22 05:18 Lorazepam 0.5 Mg Tablet PO 05/17/22 04:34 0.5 mg ONCE ONE Administration Medical Decision Making Differential Diagnosis Differential Diagnoses: The differential diagnosis associated with the presentation includes (Anxiety, panic attack, benzodiazepine withdrawal) Lab Data [facility] Lab Attestation statement: I reviewed the patient's lab results. 05/17/22 02:34 05/17/22 02:34 Labs: Lab Results 05/17/22 05/17/22 05/17/22 Range/Units 02:34 02:34 02:34 WBC 6.0 (4.8-10.8) X10*3/uL RBC 4.35 (4.20-5.50) X10*6/uL Hgb 13.0 (12.0-16.0) g/dl Hct 39.0 (37.0-47.0) % MCV 89.7 (80.0-98.0) fL MCH 29.9 (27.0-33.0) pg MCHC 33.3 (31.0-35.0) g/dl RDW 12.7 (11.0-16.0) % Plt Count 159 L (160-400) X10*3/uL MPV 10.5 (9.4-12.3) fL Immature Gran % (Auto) 0.2 (0.0-0.4) % Neut % (Auto) 38.2 L (45-73) % Lymph % (Auto) 47.4 H (20-40) % [place] % (Auto) 9.7 (2-11) % Eos % (Auto) 4.2 H (0-4) % Baso % (Auto) 0.3 (0-2) % Lymph # (Auto) 2.8 (1.2-4.9) X10*3/uL [place] # (Auto) 0.6 (0.1-1.2) X10*3/uL Eos # (Auto) 0.3 (0.0-0.4) X10*3/uL Baso # (Auto) 0.0 (0.0-0.2) X10*3/uL Abs Immat Gran (auto) 0.01 (0.00-0.03) X10*3/uL Absolute Neuts (auto) 2.3 (2.0-8.3) x10*3/uL Absolute Nucleated RBC 0.000 (0.0-0.012) X10*3/uL Nucleated RBC % (auto) 0.0 (0.0-0.2) /100WBC Sodium 140 (135-145) mmol/L Potassium 3.9 (3.3-5.1) mmol/L Chloride 109 H (96-108) mmol/L Carbon Dioxide 22 (22-29) mmol/L Anion Gap 13 (12-20) BUN 19 H (9-16) mg/dL Creatinine 0.72 (0.5-1.4) mg/dL Estim Creat Clear Calc 96.8 Estimated GFR > 60 Random Glucose 120 H (60-115) mg/dL Calcium 8.8 (8.4-10.2) mg/dL Troponin I High Sens (<3.5-17.0) ng/L Influenza Type A (PCR) NEGATIVE (Negative) Influenza Type B (PCR) NEGATIVE (Negative) RSV RNA Qual (PCR) NEGATIVE (Negative) SARS-CoV-2 RNA (RT-PCR) NEGATIVE (Negative) 05/17/22 Range/Units 05:33 WBC (4.8-10.8) X10*3/uL RBC (4.20-5.50) X10*6/uL Hgb (12.0-16.0) g/dl Hct (37.0-47.0) % MCV (80.0-98.0) fL MCH (27.0-33.0) pg MCHC (31.0-35.0) g/dl RDW (11.0-16.0) % Plt Count (160-400) X10*3/uL MPV (9.4-12.3) fL Immature Gran % (Auto) (0.0-0.4) % Neut % (Auto) (45-73) % Lymph % (Auto) (20-40) % [place] % (Auto) (2-11) % Eos % (Auto) (0-4) % Baso % (Auto) (0-2) % Lymph # (Auto) (1.2-4.9) X10*3/uL [place] # (Auto) (0.1-1.2) X10*3/uL Eos # (Auto) (0.0-0.4) X10*3/uL Baso # (Auto) (0.0-0.2) X10*3/uL Abs Immat Gran (auto) (0.00-0.03) X10*3/uL Absolute Neuts (auto) (2.0-8.3) x10*3/uL Absolute Nucleated RBC (0.0-0.012) X10*3/uL Nucleated RBC % (auto) (0.0-0.2) /100WBC Sodium (135-145) mmol/L Potassium (3.3-5.1) mmol/L Chloride (96-108) mmol/L Carbon Dioxide (22-29) mmol/L Anion Gap (12-20) BUN (9-16) mg/dL Creatinine (0.5-1.4) mg/dL Estim Creat Clear Calc Estimated GFR Random Glucose (60-115) mg/dL Calcium (8.4-10.2) mg/dL Troponin I High Sens < 3.5 (<3.5-17.0) ng/L Influenza Type A (PCR) (Negative) Influenza Type B (PCR) (Negative) RSV RNA Qual (PCR) (Negative) SARS-CoV-2 RNA (RT-PCR) (Negative) Independent Interpretation I performed an independent interpretation of an: EKG (My interpretation of EKG: Normal sinus rhythm, heart rate 61, no ST segment depression or elevation, no T-wave inversion, QTC 440) Discharge Plan Discharge Clinical Impression: Benzodiazepine withdrawal Patient Disposition: Home, Self-Care Instructions: Anxiety (ED) Additional Instructions: Please do not stop taking benzodiazepines/lorazepam abruptly. Please follow-up with her primary care physician to establish a plan to reduce the dose gradually. Please follow-up with your primary care physician tomorrow. If you have any worsening or new symptoms, please return to the emergency room or call 911 Prescriptions: No Action albuterol sulfate 90 mcg/actuation HFA aerosol inhaler 2 puff inhalation Q4-6H PRN (Reason: shortness of breath or wheezing) Qty: 6.7 0RF lorazepam 0.5 mg tablet 0.5 mg PO BEDTIME PRN (Reason: Anxiety) levothyroxine 137 mcg tablet 137 mcg PO DAILY 90 Days Qty: 90 3RF omeprazole 20 mg capsule,delayed release(DR/EC) 20 mg PO DAILY hydroxyzine HCl 25 mg tablet 25 - 50 mg PO TID PRN (Reason: anxiety) valacyclovir 500 mg tablet 500 mg PO DAILY
--- NOTE | 2022-05-17 04:44 | ECG_ITS ---
Test Reason : CHEST PAIN Blood Pressure : / mmHG Vent. Rate : 061 BPM Atrial Rate : 061 BPM P-R Int : 172 ms QRS Dur : 074 ms QT Int : 438 ms P-R-T Axes : 030 001 034 degrees QTc Int : 440 ms Normal sinus rhythm Cannot rule out Anterior infarct , age undetermined Abnormal ECG When compared with ECG of 28-FEB-2022 16:12, No significant change was found Referred By: Alanis Pandey Electronically Signed By:Joe Olguin
[2022-05-17] MEDS: LORazepam 0.5 MG TABLET PO (05:18)
--- NOTE | 2022-05-17 06:18 | PC.NURSE ---
Troponin was drawn by aircraft ordnance technician. Continues to show pending. RN called chemistry Librado reports he has specimen and will run test.
[2022-05-17 06:24] VITALS: BP 122/61; PULSE 59; RESP 16; O2SAT 98
[2022-05-17 06:37] LABS: Troponin-I High Sensitivity < 3.5 ng/L (<3.5-17.0)
[2022-05-17 07:15] VITALS: BP 114/51; PULSE 54; RESP 14; TEMP 36.7; O2SAT 97
== END 2022-05-17 07:17 | disposition home or self-care (01) ==
PROVIDERS: Emergency Provider Emergency Medicine; PCP Internal Medicine
DX: F19.930 Other psychoactive substance use, unspecified with withdrawal, uncomplicated (principal); F41.9 Anxiety disorder, unspecified; Z20.822 Contact with and (suspected) exposure to COVID-19; Z20.828 Contact with and (suspected) exposure to other viral communicable diseases; Z79.899 Other long term (current) drug therapy
CPT/HCPCS: 0241U; 36415; 80048; 84484; 85025; 93005; 99283; 99284

== ENCOUNTER 2022-05-31 15:48 | Outpatient (REF) | payer OTHER, SELFPAY ==
--- NOTE | ~2022-05-31 | XR_ITS ---
EXAMINATION: XR CHEST CLINICAL INFORMATION: Chest pain. COMPARISON: 02/28/2022. TECHNIQUE: 2 views of the chest were obtained. FINDINGS: The cardiomediastinal silhouette is stable. Lungs are well expanded and clear. No consolidation, effusion, or pneumothorax. XR/XR chest 2V IMPRESSION: Stable chest x-ray. No acute cardiopulmonary findings.
[2022-05-31 18:19] LABS: Vitamin D 25-OH Total 23.3 ng/mL (>30)
== END 2022-05-31 15:49 | disposition home or self-care (01) ==
LOC: HO.LAB 15:48
PROVIDERS: Absent Provider Internal Medicine; PCP Internal Medicine; Visit Provider Internal Medicine Endocrinology, Diabetes & Metabolism
DX: E55.9 Vitamin D deficiency, unspecified (principal); R07.9 Chest pain, unspecified; R06.09 Other forms of dyspnea
CPT/HCPCS: 36415; 71046; 82306

== ENCOUNTER 2022-06-03 14:59 | Outpatient (REF) | payer OTHER, SELFPAY | END 2022-06-03 15:00 | disposition home or self-care (01) | LOC: HO.LAB 14:59 | PROVIDERS: PCP Internal Medicine; Visit Provider Internal Medicine Endocrinology, Diabetes & Metabolism | DX: E03.8 Other specified hypothyroidism (principal); E06.3 Autoimmune thyroiditis; E55.9 Vitamin D deficiency, unspecified | CPT/HCPCS: 36415; 84439; 84443; 99212 ==

== ENCOUNTER 2022-06-10 11:45 | Emergency (ER) | payer OTHER, SELFPAY ==
--- NOTE | ~2022-06-10 | CT_ITS ---
EXAMINATION: CT HEAD WITHOUT CONTRAST CLINICAL INFORMATION: Dizziness COMPARISON: 08/23/2018 TECHNIQUE: Contiguous axial imaging was performed from the skull base to vertex without intravenous administration of contrast. This CT examination was performed using dose optimization techniques as appropriate, variously including the following: *Automated exposure control *Adjustment of mA and/or kV according to patient size (this includes techniques or standardized protocols for targeted exams where dose is matched to indication/reason for exam; i.e. extremities or head) *Use of iterative reconstruction technique DLP: 572 mGy-cm FINDINGS: There is no evidence of acute intracranial hemorrhage or territorial infarction. No abnormal mass effect or midline shift is seen. Melara to white matter differentiation is well preserved. No extra-axial fluid collections are identified. No hydrocephalus. No significant volume loss. There is no abnormal attenuation within the brain parenchyma. No acute osseous or soft tissue abnormality. The mastoid air cells and visualized portions of the paranasal sinuses are well aerated. CT/CT head/brain wo IV con IMPRESSION: No acute intracranial pathology.
[2022-06-10 12:00] VITALS: BP 127/69; PULSE 71; RESP 16; TEMP 36.8; O2SAT 98; BMI 34.0
--- NOTE | 2022-06-10 12:02 | ED_ITS ---
HPI - General Adult General Chief complaint: Headache <RADHA Talavera - Last Filed: 06/10/22 12:04> Stated complaint: dizziness, <RADHA Talavera - Last Filed: 06/10/22 12:04> Time Seen by Provider: 06/10/22 16:50 <RADHA Talavera - Last Filed: 06/10/22 12:04> Source: patient <RADHA Wilson - Last Filed: 06/10/22 18:12> Mode of arrival: ambulatory <RADHA Wilson - Last Filed: 06/10/22 18:12> Limitations: no limitations <RADHA Wilson - Last Filed: 06/10/22 18:12> History of Present Illness HPI narrative: This is a 52-year-old female history of asthma, depression, hypothyroidism presenting for evaluation of intermittent headaches (diffuse pulsatile, doesnt have one now ) , dizziness described as lightheadedness, blurred vision b/l , times a few weeks worsening over past few days. Patient tells me that at times s he gets throbbing that is severe in b/l ears and in scientology region. Patient reports she went to the [facility] where she was evaluated, they told her she had a left-sided ear infection was prescribed amoxicillin, patient took 1st dose this morning and was advised to come to the emergency department for further imaging of her head to rule out causes of increased intracranial pressure. According to patient she does not have an earache nor has she had fevers, chills, chest pain, shortness of breath, nausea, vomiting, abdominal pain, no head trauma, no tinitus. Patient not on blood thinners. NIHSS-0 <RADHA Wilson - Last Filed: 06/10/22 18:12> Related Data Home medications: Home Medications Medication Instructions Recorded Confirmed lorazepam 0.5 mg tablet 0.5 mg PO BEDTIME PRN Anxiety 03/05/20 02/25/22 hydroxyzine HCl 25 mg tablet 25 - 50 mg PO TID PRN anxiety 06/08/21 02/25/22 omeprazole 20 mg capsule,delayed 20 mg PO DAILY 06/08/21 02/25/22 release valacyclovir 500 mg tablet 500 mg PO DAILY 01/04/22 02/25/22 Previous Rx's Medication Instructions Recorded albuterol sulfate 90 mcg/actuation 2 puff inhalation Q4-6H PRN 02/26/20 aerosol inhaler shortness of breath or wheezing #6.7 grams levothyroxine 137 mcg tablet 137 mcg PO DAILY 90 days #90 tabs 03/05/20 cholecalciferol (vitamin D3) 50 50 mcg PO DAILY #30 caps 06/01/22 mcg (2,000 unit) capsule prednisone 20 mg tablet 20 mg PO DAILY 5 days #5 tabs 06/10/22 <RADHA Talavera - Last Filed: 06/10/22 12:04> Allergies/adverse reactions: Allergies Allergy/AdvReac Type Severity Reaction Status Date / Time diphenhydramine Allergy Intermediate SEVERE Verified 06/10/22 12:00 [From JENELLE] LETHARGY <RADHA Talavera - Last Filed: 06/10/22 12:04> Review of Systems Review of Systems: Constitutional : No Weight loss, No Fever, No Chills, No Fatigue, No Malaise ENT/Mouth : No sore throat, No Rhinorrhea Eyes: No Eye Pain, No Swelling, No Redness Cardiovascular : No Chest Pain, No SOB, No Dyspnea on Exertion, No Orthopnea, No Edema, No Palpitations Respiratory : No Cough, No Sputum, No Wheezing Gastrointestinal : No Nausea, No Vomiting, No Diarrhea, No Constipation, No abdominal Pain, No Hematochezia, No Melena Genitourinary : No Dysuria, No Urinary Frequency, No Hematuria, Musculoskeletal : No joint pain, No Myalgias, No Joint Swelling Skin : No Skin Lesions, No rash Neuro : No Weakness, No Numbness, + Dizziness, + Headache Psych : No Anxiety/Panic, No Depression All other systems reviewed and are negative <RADHA Wilson - Last Filed: 06/10/22 18:12> Yes all other systems are reviewed and are negative <RADHA Wilson - Last Filed: 06/10/22 18:12> [facility] Past Medical History Attestation statement: The following information was validated with the patient. <RADHA Wilson Last Filed: 06/10/22 18:12> Source: old records reviewed and nursing notes reviewed <RADHA Wilson - Last Filed: 06/10/22 18:12> Medical History: Medical History Asthma Depression Hypothyroidism Panic attacks Thyroid activity decreased Vitamin D deficiency <RADHA Talavera - Last Filed: 06/10/22 12:04> Surgical History: Surgical History Hx of cervical polypectomy Hx of gastric bypass Hx of lithotripsy <RADHA Talavera - Last Filed: 06/10/22 12:04> Family History Family History: Family History Father Leukemia Cancer Mother Diabetes mellitus Hypertension <RADHA Talavera - Last Filed: 06/10/22 12:04> Social History Social History: Social History Household Members: Spouse Housing: Apartment Alcohol intake: never Patient Tobacco Use Status: Never used Tobacco Advance Directives: No Advance Directives Information Provided: No Current occupational status: unemployed Sexual orientation: Straight/Heterosexual Gender identity: Female <RADHA Talavera - Last Filed: 06/10/22 12:04> Physical Exam ED Vital Signs: Vital Signs - 24 hr 06/10/22 12:00 Temperature 98.2 F Pulse Rate 71 Respiratory Rate 16 Blood Pressure 127/69 Pulse Oximetry 98 Oxygen Delivery Method Room Air BMI result Body Mass Index 34.0 <RADHA Talavera - Last Filed: 06/10/22 12:04> Vital Signs - 24 hr 06/10/22 12:00 Temperature 98.2 F Pulse Rate 71 Respiratory Rate 16 Blood Pressure 127/69 Pulse Oximetry 98 Oxygen Delivery Method Room Air BMI result Body Mass Index 34.0 Vital signs stable. <RADHA Wilson - Last Filed: 06/10/22 18:12> Appearance: Alert.? Oriented X3.? No acute distress.? Head: Normocephalic, atraumatic, no step-offs or deformities Eyes: Pupils equal, round and reactive to light.?EOMI pain free. IOP: L: 11 R: 10 Ears: b/l EC and TM wnl, no pain w/ manipulation of external ears b/l. No mastoid tenderness. Neck: Subtle, negative Kernig and Brudzinski, no tenderness to palpation. CVS: Normal heart rate and rhythm.? Pulses normal.? Respiratory: No respiratory distress.? Breath sounds normal.? Abdomen: Soft and nontender.? Skin: Skin warm and dry.? Normal skin color.? Normal skin turgor.? Extremities: No lower extremity edema.?5/5 strength to bilateral upper and lower extremities Back: No midline tenderness, no C-spine tenderness, full range of motion, no CVA tenderness bilaterally Neuro: Oriented X 3.? No motor deficit.? No sensory deficit. CN 2-12 intact . Normal drlhex-gu-lyyu, wodt-hx-rdaz, steady tandem gait with normal coordination. <RADHA Wilson Last Filed: 06/10/22 18:12> Course Course Course Narrative: RME performed by Laura Neff PA-C. Patient is a 52 year old female presenting to the emergency department with dizziness, blurry vision, and inner ear inflammation. Patient states that she was seen by her PCP who recommended she come to the ER for an MRI or a CT scan of her head. Patient states that she took a lorazepam for her anxiety at 11:30am today. Labs, EKG, and head CT ordered. Patient placed back in the waiting room pending results and room availability. <RADHA Talavera Last Filed: 06/10/22 12:04> Reevaluation(s) Reevaluation #1: Performed interocular pressure, pressure on the left 11, pressure on the right 10. No signs of acute closed angle glaucoma wet macular degeneration. There is no papilledema noted, unlikely that there is increased intracranial pressure. Patient's blood pressure is also normal. Low suspicion for this. <RADHA Wilson Last Filed: 06/10/22 18:12> Time: 17:37 <RADHA Wilson Last Filed: 06/10/22 18:12> Reevaluation #2: Inflammatory markers normal. Patient reports she is feeling better. Patient does not have blurred vision and clarifies that it only happens sometimes she tells me it has been happening intermittently for the past few w eeks, she also reports that symptoms are worse when she has anxiety. Patient has significant history of anxiety she takes lorazepam and hydroxyzine. She tells me she has enough at home and does not need a refill on her prescriptions. She also tells me sometimes she gets sinus congestion and is wondering if this could contribute to her ear discomfort. I will send her home on low-dose prednisone for this. I explained to her that I did not see an ear infection on my exam, patient tells me she will discontinue antibiotics. Educated patient on diagnosis and treatment plan, answered all question, patient verbalizes understanding. At this time patient will be discharged home, advised to return with new or worsening symptoms. Educated on worrisome signs and symptoms and when to return. At this time I feel comfortable discharge home. <RADHA Wilson - Last Filed: 06/10/22 18:12> Time: 18:09 <RADHA Wilson - Last Filed: 06/10/22 18:12> Medications Administered Discontinued Medications Generic Name Dose Route Start Last Admin Trade Name Freq PRN Reason Stop Dose Admin Diazepam 2 mg 06/10/22 17:22 06/10/22 18:00 Diazepam 2 Mg Tablet PO 06/10/22 17:23 2 mg ONCE ONE Administration <RADHA Talavera - Last Filed: 06/10/22 12:04> Medications Administered Discontinued Medications Generic Name Dose Route Start Last Admin Trade Name Freq PRN Reason Stop Dose Admin Diazepam 2 mg 06/10/22 17:22 06/10/22 18:00 Diazepam 2 Mg Tablet PO 06/10/22 17:23 2 mg ONCE ONE Administration <RADHA Wilson - Last Filed: 06/10/22 18:12> Medical Decision Making Medical Decision Making [facility] Narrative: [id number] 52-year-old female presents for re-evaluation of lightheadedness, headaches, throbbing sensation to scientology region, intermittent blurred vision times a few days worsening was sent in by a provider at [facility] to obtain an MRI of the brain. Physical examination benign. I do not appreciate left-sided otitis media. No meningeal signs. Neuro nonfocal. Cerebellar intact. NIH stroke scale is 0. Likely typical headache, viral ilness will rule out temporal arteritis/giant cell arteritis. Unlikely stroke, posterior stroke, meningitis, glaucoma, wet macular degeneration. Plan at this time basic labs, ESR, CRP, head CT. Will obtain intra-ocular pressure. MRI not indicated no focal neuro deficits.. <RADHA Wilson - Last Filed: 06/10/22 18:12> Differential Diagnosis Differential Diagnoses: The differential diagnosis associated with the presentation includes <RADHA William - Last Filed: 06/10/22 18:12> Likely typical headache, viral illness will rule out temporal arteritis/giant cell arteritis. Unlikely stroke, posterior stroke, meningitis, glaucoma, wet macular degeneration. <RADHA Wilson - Last Filed: 06/10/22 18:12> Admission/Observation Consideration of admission/observation: Escalation of care including admission/observation considered <RADHA Wilson - Last Filed: 06/10/22 18:12> Lab Data MDM Lab Attestation statement: I reviewed the patient's lab results. <RADHA Wilson - Last Filed: 06/10/22 18:12> Result Diagrams: 06/10/22 12:22 06/10/22 12:22 <RADHA Talavera - Last Filed: 06/10/22 12:04> Labs: Lab Results 06/10/22 06/10/22 06/10/22 Range/Units 12:22 12:22 12:23 WBC 5.3 (4.8-10.8) X10*3/uL RBC 4.64 (4.20-5.50) X10*6/uL Hgb 13.7 (12.0-16.0) g/dl Hct 41.9 (37.0-47.0) % MCV 90.3 (80.0-98.0) fL MCH 29.5 (27.0-33.0) pg MCHC 32.7 (31.0-35.0) g/dl RDW 13.2 (11.0-16.0) % Plt Count 166 (160-400) X10*3/uL MPV 10.7 (9.4-12.3) fL Immature Gran % (Auto) 0.2 (0.0-0.4) % Neut % (Auto) 51.5 (45-73) % Lymph % (Auto) 33.8 (20-40) % Collier % (Auto) 8.6 (2-11) % Eos % (Auto) 5.1 H (0-4) % Baso % (Auto) 0.8 (0-2) % Lymph # (Auto) 1.8 (1.2-4.9) X10*3/uL Collier # (Auto) 0.5 (0.1-1.2) X10*3/uL Eos # (Auto) 0.3 (0.0-0.4) X10*3/uL Baso # (Auto) 0.0 (0.0-0.2) X10*3/uL Abs Immat Gran (auto) 0.01 (0.00-0.03) X10*3/uL Absolute Neuts (auto) 2.7 (2.0-8.3) x10*3/uL Absolute Nucleated RBC 0.000 (0.0-0.012) X10*3/uL Nucleated RBC % (auto) 0.0 (0.0-0.2) /100WBC Sodium 141 (135-145) mmol/L Potassium 4.2 (3.3-5.1) mmol/L Chloride 108 (96-108) mmol/L Carbon Dioxide 29 (22-29) mmol/L Anion Gap 8 L (12-20) BUN 15 (9-16) mg/dL Creatinine 0.73 (0.5-1.4) mg/dL Estim Creat Clear Calc 97.9 Estimated GFR > 60 Random Glucose 86 (60-115) mg/dL Calcium 9.2 (8.4-10.2) mg/dL Magnesium 1.9 (1.6-2.6) mg/dL Total Bilirubin 0.5 (0.0-1.0) mg/dL AST 26 (5-31) U/L ALT 8 (0-31) U/L Alkaline Phosphatase 114 (39-117) U/L C-Reactive Protein < 0.10 (< or = 0.50) mg/dL Total Protein 6.6 (6.5-8.0) g/dL Albumin 4.1 (3.5-5.0) g/dL COVID-19 (CRISSY) Negative (Negative) COVID-19 Clin Com See Note <RADHA Talavera - Last Filed: 06/10/22 12:04> Lab Results 06/10/22 06/10/22 06/10/22 Range/Units 12:22 12:22 12:23 WBC 5.3 (4.8-10.8) X10*3/uL RBC 4.64 (4.20-5.50) X10*6/uL Hgb 13.7 (12.0-16.0) g/dl Hct 41.9 (37.0-47.0) % MCV 90.3 (80.0-98.0) fL MCH 29.5 (27.0-33.0) pg MCHC 32.7 (31.0-35.0) g/dl RDW 13.2 (11.0-16.0) % Plt Count 166 (160-400) X10*3/uL MPV 10.7 (9.4-12.3) fL Immature Gran % (Auto) 0.2 (0.0-0.4) % Neut % (Auto) 51.5 (45-73) % Lymph % (Auto) 33.8 (20-40) % Collier % (Auto) 8.6 (2-11) % Eos % (Auto) 5.1 H (0-4) % Baso % (Auto) 0.8 (0-2) % Lymph # (Auto) 1.8 (1.2-4.9) X10*3/uL Collier # (Auto) 0.5 (0.1-1.2) X10*3/uL Eos # (Auto) 0.3 (0.0-0.4) X10*3/uL Baso # (Auto) 0.0 (0.0-0.2) X10*3/uL Abs Immat Gran (auto) 0.01 (0.00-0.03) X10*3/uL Absolute Neuts (auto) 2.7 (2.0-8.3) x10*3/uL Absolute Nucleated RBC 0.000 (0.0-0.012) X10*3/uL Nucleated RBC % (auto) 0.0 (0.0-0.2) /100WBC Sodium 141 (135-145) mmol/L Potassium 4.2 (3.3-5.1) mmol/L Chloride 108 (96-108) mmol/L Carbon Dioxide 29 (22-29) mmol/L Anion Gap 8 L (12-20) BUN 15 (9-16) mg/dL Creatinine 0.73 (0.5-1.4) mg/dL Estim Creat Clear Calc 97.9 Estimated GFR > 60 Random Glucose 86 (60-115) mg/dL Calcium 9.2 (8.4-10.2) mg/dL Magnesium 1.9 (1.6-2.6) mg/dL Total Bilirubin 0.5 (0.0-1.0) mg/dL AST 26 (5-31) U/L ALT 8 (0-31) U/L Alkaline Phosphatase 114 (39-117) U/L C-Reactive Protein < 0.10 (< or = 0.50) mg/dL Total Protein 6.6 (6.5-8.0) g/dL Albumin 4.1 (3.5-5.0) g/dL COVID-19 (CRISSY) Negative (Negative) COVID-19 Clin Com See Note <RADHA Wilson - Last Filed: 06/10/22 18:12> Independent Interpretation I performed an independent interpretation of an: CT Scan (CT/CT head/brain wo IV con IMPRESSION: No acute intracranial pathology.) <RADHA Wilson - Last Filed: 06/10/22 18:12> Radiology Impression Discussion of test interpretation with radiology: I have reviewed the radiologist's reading. <RADHA Wilson - Last Filed: 06/10/22 18:12> Tests considered The following testing was considered but not selected: MRI not indicated, no focal neuro deficits, NIH stroke scale 0. Unlikely stroke or posterior stroke <RADHA Wilson - Last Filed: 06/10/22 18:12> Core Measures AMI core measures followed: Yes <RADHA Wilson Last Filed: 06/10/22 18:12> Measure exclusions: not indicated <RADHA Wilson Last Filed: 02/24/23 18:12> Critical Care Time Critical Care Time Critical Care Time: No <RADHA Wilson Last Filed: 06/10/22 18:12> Discharge Plan Discharge Clinical Impression: Headache, Lightheadedness, Visual changes, Anxiety <RADHA Talavera Last Filed: 06/10/22 12:04> Patient Disposition: Home, Self-Care <RADHA Talavera Last Filed: 06/10/22 12:04> Instructions: Acute Headache (ED), Lightheadedness (ED), Blurred Vision (ED), Dizziness (ED) <RADHA Talavera Last Filed: 06/10/22 12:04> Additional Instructions: Take your medications as prescribed. If you were prescribed antibiotics today, it is important that you take your medication to their entirety, do not skip any doses, do not finish them early. Follow-up with your primary care provider this week. Return to the emergency department with new or worsening symptoms. Such as fevers, chills, chest pain, shortness of breath, nausea, vomiting, dizziness, headache, vision changes, lethargy In case of emergency call 911 Eye pressures normal bilaterally Your labs looked good and reassuring. Inflammatory markers normal this is good news! CT/CT head/brain wo IV con IMPRESSION: No acute intracranial pathology. <RADHA Talavera Last Filed: 06/10/22 12:04> Prescriptions: New prednisone 20 mg tablet 20 mg PO DAILY 5 Days Qty: 5 0RF No Action cholecalciferol (vitamin D3) 50 mcg (2,000 unit) capsule 50 mcg PO DAILY Qty: 30 6RF albuterol sulfate 90 mcg/actuation HFA aerosol inhaler 2 puff inhalation Q4-6H PRN (Reason: shortness of breath or wheezing) Qty: 6.7 0RF lorazepam 0.5 mg tablet 0.5 mg PO BEDTIME PRN (Reason: Anxiety) levothyroxine 137 mcg tablet 137 mcg PO DAILY 90 Days Qty: 90 3RF omeprazole 20 mg capsule,delayed release(DR/EC) 20 mg PO DAILY hydroxyzine HCl 25 mg tablet 25 - 50 mg PO TID PRN (Reason: anxiety) valacyclovir 500 mg tablet 500 mg PO DAILY <RADHA Talavera Last Filed: 06/10/22 12:04> Referrals: Manju Syed, RN [Emergency Nurse] - 2 days <RADHA Talavera - Last Filed: 06/10/22 12:04>
--- NOTE | 2022-06-10 12:04 | ECG_ITS ---
Test Reason : dizziness Blood Pressure : / mmHG Vent. Rate : 071 BPM Atrial Rate : 071 BPM P-R Int : 142 ms QRS Dur : 072 ms QT Int : 396 ms P-R-T Axes : 040 001 050 degrees QTc Int : 430 ms Normal sinus rhythm Normal ECG When compared with ECG of 17-MAY-2022 05:37, No significant change was found Referred By: Laura Neff Electronically Signed By:GIACOMO CASTANEDA
[2022-06-10 12:28] LABS: MANUAL DIFF FLAG NO
[2022-06-10 12:31] LABS: Basophils Percent Auto 0.8 % (0-2); Eosinophils Absolute Auto 0.3 X10*3/uL (0.0-0.4); Eosinophils Percent Auto 5.1 % (0-4); Hematocrit 41.9 % (37.0-47.0); Hemoglobin 13.7 g/dl (12.0-16.0); Imm Gran Abs Auto 0.01 X10*3/uL (0.00-0.03); Imm Gran Pct Auto 0.2 % (0.0-0.4); Lymphocytes Absolute Auto 1.8 X10*3/uL (1.2-4.9); Lymphocytes Percent Auto 33.8 % (20-40); Mean Corpuscular HGB Conc 32.7 g/dl (31.0-35.0); Mean Corpuscular Hemoglobin 29.5 pg (27.0-33.0); Mean Corpuscular Volume 90.3 fL (80.0-98.0); Mean Platelet Volume 10.7 fL (9.4-12.3); Monocytes Absolute Auto 0.5 X10*3/uL (0.1-1.2); Monocytes Percent Auto 8.6 % (2-11); Neutrophils Absolute Auto 2.7 x10*3/uL (2.0-8.3); Neutrophils Percent Auto 51.5 % (45-73); Platelet Count 166 X10*3/uL (160-400); Red Blood Count 4.64 X10*6/uL (4.20-5.50); Red Cell Distribution Width 13.2 % (11.0-16.0); White Blood Count 5.3 X10*3/uL (4.8-10.8)
[2022-06-10 12:46] LABS: Alanine Aminotransferase 8 U/L (0-31); Albumin Level 4.1 g/dL (3.5-5.0); Alkaline Phosphatase 114 U/L (39-117); Anion Gap 8 (12-20); Aspartate Amino Transferase 26 U/L (5-31); Bilirubin Total 0.5 mg/dL (0.0-1.0); Blood Urea Nitrogen 15 mg/dL (9-16); Calcium 9.2 mg/dL (8.4-10.2); Carbon Dioxide 29 mmol/L (22-29); Chloride 108 mmol/L (96-108); Creatinine Clr Calc Pharmacy 97.9; Estimated Glomerular Filt Rate > 60; Glucose Random 86 mg/dL (60-115); Magnesium 1.9 mg/dL (1.6-2.6); Potassium 4.2 mmol/L (3.3-5.1); Sodium 141 mmol/L (135-145); Total Protein 6.6 g/dL (6.5-8.0)
[2022-06-10 12:46] LABS: COVID-19 Test Negative (Negative); IDNOW Serial# BCCEAD1C
[2022-06-10 17:57] LABS: C Reactive Protein < 0.10 mg/dL (< or = 0.50)
[2022-06-10] MEDS: diazePAM 2 MG TABLET PO (18:00)
[2022-06-10 18:31] LABS: Erythrocyte Sedimentation Rate 14 MM/HR (0-20)
== END 2022-06-10 18:31 | disposition home or self-care (01) ==
PROVIDERS: Physician Assistant; Physician Assistant Medical; Emergency Provider Emergency Medicine Emergency Medical Services; PCP Internal Medicine
DX: R42 Dizziness and giddiness (principal); R51.9 Headache, unspecified; F41.1 Generalized anxiety disorder; F43.0 Acute stress reaction; Z20.828 Contact with and (suspected) exposure to other viral communicable diseases; Z20.822 Contact with and (suspected) exposure to COVID-19; Z79.899 Other long term (current) drug therapy
CPT/HCPCS: 70450; 80053; 83735; 85025; 85652; 86140; 87635; 93005; 99283; 99284

== ENCOUNTER 2022-06-23 09:29 | Outpatient (REF) | payer OTHER, SELFPAY ==
[2022-06-23 10:40] LABS: Alanine Aminotransferase 7 U/L (0-31); Aspartate Amino Transferase 22 U/L (5-31); Cholesterol 204 mg/dL; HDL Cholesterol 69 mg/dL; LDL Cholesterol Calculated 122 mg/dl; Triglycerides 66 mg/dL
== END 2022-06-23 09:30 | disposition home or self-care (01) ==
LOC: HO.LAB 09:29
PROVIDERS: PCP Internal Medicine; Visit Provider Internal Medicine Cardiovascular Disease
DX: E78.5 Hyperlipidemia, unspecified (principal)
CPT/HCPCS: 36415; 80061; 84450; 84460

== ENCOUNTER 2022-06-29 07:19 | Outpatient (REF) | payer OTHER, SELFPAY ==
--- NOTE | ~2022-06-29 | MR_ITS ---
EXAMINATION: MR BRAIN WITHOUT AND WITH CONTRAST CLINICAL INFORMATION: Benign intracranial hypertension, with chronic headache. COMPARISON: CT scan of the head 06/10/2022. TECHNIQUE: Multiplanar, multisequence MRI of the brain was obtained before and after the intravenous administration of 8.5 mL Gadavist. FINDINGS: No diffusion abnormalities are identified to suggest an acute or subacute infarct. No mass effect or midline shift is seen. The ventricles and sulci are normal in size. There are a few scattered foci of hyperintense FLAIR signal in the periventricular subcortical white matter which are nonspecific and may be consistent with early/mild chronic microvascular ischemic disease with sequelae of vasculitis or migraine. There is a mildly prominent vascular channel in the anterior right centrum semiovale. The 7th and 8th cranial nerve complexes are normal in course and caliber. No signal abnormality is seen in the inner ear structures on the precontrast axial T1-weighted sequence. Fluid signal is preserved within the cochleae, semicircular canals, and vestibules on the high-resolution axial FIESTA sequence. No cerebellopontine angle lesion is noted. There is no abnormal labyrinthine or intracanalicular enhancement on postcontrast imaging. No extra-axial fluid collections are seen. The brainstem appears normal. On postcontrast imaging, there is no abnormal parenchymal or leptomeningeal enhancement. There is also no abnormal enhancement of the packing meninges. Evaluation of the orbits is unremarkable on images obtained in this study. No pathologic magnetic susceptibility artifact is identified on the gradient refocused acquisition. The cerebellar tonsils have normal contour and position, and the craniocervical junction appears normal. Marrow signal and midline structures are normal. The major intracranial flow-voids at the level of the [place] of [place] are preserved. The dural venous sinus flow-voids are maintained. The mastoid air cells and paranasal sinuses are well-aerated. MR/MR head/brain wo/w con IMPRESSION: 1. There are no acute bleeds or territorial infarcts. No masses are demonstrated. There is no abnormal enhancement. 2. The internal auditory canals and CP angles appear normal bilaterally. 3. There are scattered foci of hyperintense FLAIR signal as described above.
== END 2022-06-29 07:20 | disposition home or self-care (01) ==
LOC: HO.MRI 07:19
PROVIDERS: PCP Internal Medicine; Visit Provider Registered Nurse
DX: R42 Dizziness and giddiness (principal); H93.A3 Pulsatile tinnitus, bilateral
CPT/HCPCS: 70553; A9585

== ENCOUNTER 2022-08-04 16:08 | Outpatient (REF) | payer OTHER, SELFPAY ==
--- NOTE | ~2022-08-04 | XR_ITS ---
EXAMINATION: XR SHOULDER, LEFT CLINICAL INFORMATION: Chronic left shoulder pain COMPARISON: None available. TECHNIQUE: AP external rotation, Grashey, scapular Y, and axillary views of the left shoulder. FINDINGS: The bones and soft tissues are normal. No fracture. Glenohumeral and acromioclavicular alignment is anatomic with normal joint space. No abnormal soft tissue calcifications. XR/XR shoulder LT min 2V IMPRESSION: Normal left shoulder.
== END 2022-08-04 16:09 | disposition home or self-care (01) ==
LOC: HO.XRAY 16:08
PROVIDERS: PCP Internal Medicine; Visit Provider Internal Medicine
DX: M25.512 Pain in left shoulder (principal)
CPT/HCPCS: 73030

== ENCOUNTER 2022-09-08 07:09 | Outpatient (REF) | payer OTHER, SELFPAY ==
--- NOTE | ~2022-09-08 | MR_ITS ---
EXAMINATION: MRI SHOULDER WITHOUT CONTRAST, LEFT CLINICAL INFORMATION: Pain, decreased range of motion. COMPARISON: X-ray 08/04/2022. TECHNIQUE: MRI of the shoulder without contrast is performed in a 1.5 Yoselyn high-field scanner. FINDINGS: CORACOACROMIAL ARCH: No significant acromioclavicular arthritis. Trace edema/fluid in the subacromial-subdeltoid space. Undersurface of the acromion is concave with lateral downsloping. ROTATOR CUFF: Mild supraspinatus tendinosis. Mild articular surface fraying anteriorly, and mild bursal surface fraying in the posterior fibers. Infraspinatus, teres minor is intact. Mild subscapularis tendinosis. ROTATOR CUFF MUSCLES: No muscle atrophy or fatty infiltration. BICEPS TENDON: Intact. LABRUM/CAPSULE: No definite labral tear is seen. Mild edema in the inferior capsule. GLENOHUMERAL JOINT/MARROW: No fracture. Degenerative cysts in the posterior greater tuberosity. No significant effusion. MR/MR shoulder LT wo con IMPRESSION: 1. Mild supraspinatus tendinosis. Mild articular surface and bursal surface fraying, as detailed above. 2. Mild subscapularis tendinosis. 3. Mild edema in the inferior capsule, could be related to injury or capsulitis in the appropriate clinical circumstance.
== END 2022-09-08 07:10 | disposition home or self-care (01) ==
LOC: HO.MRI 07:09
PROVIDERS: PCP Internal Medicine; Visit Provider Internal Medicine
DX: M25.512 Pain in left shoulder (principal); G89.29 Other chronic pain
CPT/HCPCS: 73221

== ENCOUNTER → 2022-10-07 09:08 | Outpatient (BNVA) | payer OTHER, SELFPAY | PROVIDERS: PCP Internal Medicine; Visit Provider Orthopaedic Surgery | DX: M77.8 Other enthesopathies, not elsewhere classified (principal) | CPT/HCPCS: 20610; 99202; J1100 ==

== ENCOUNTER 2022-10-18 04:38 | Emergency (ER) | payer OTHER, SELFPAY ==
[2022-10-18 04:41] VITALS: BP 111/72; PULSE 76; RESP 28; TEMP 36.2; O2SAT 100; BMI 32.3
--- NOTE | 2022-10-18 05:06 | ED_ITS ---
HPI - General Adult General Chief complaint: Dyspnea Stated complaint: Sob Time Seen by Provider: 10/18/22 05:18 Source: patient Mode of arrival: ambulatory Limitations: no limitations History of Present Illness HPI narrative: Patient comes to the emergency room complaining feeling extremely anxious, short of breath. Patient states that she woke up with a panic attack. Patient complaining of epigastric burning sensation. No nausea vomiting or diarrhea Related Data Home Medications ?Medication ?Instructions ?Recorded ?Confirmed lorazepam 0.5 mg tablet 0.5 mg PO BEDTIME PRN Anxiety 03/05/20 08/18/23 hydroxyzine HCl 25 mg tablet 25 - 50 mg PO TID PRN anxiety 06/08/21 08/18/23 omeprazole 20 mg capsule,delayed 20 mg PO DAILY 06/08/21 08/18/23 release valacyclovir 500 mg tablet 500 mg PO DAILY 01/04/22 08/18/23 baclofen 10 mg tablet 10 mg PO TID 06/01/23 08/18/23 diclofenac sodium 1 % topical gel topical 06/01/23 08/18/23 Previous Rx's ?Medication ?Instructions ?Recorded albuterol sulfate 90 mcg/actuation 2 puff inhalation Q4-6H PRN 02/26/20 aerosol inhaler shortness of breath or wheezing #6.7 grams cholecalciferol (vitamin D3) 50 50 mcg PO DAILY #90 caps 11/29/22 mcg (2,000 unit) capsule celecoxib 200 mg capsule 200 mg PO BID #60 caps 01/30/23 stumjbrcep-qnpywmcwewthz-wpfukdsc 1 tab PO Q6H PRN pain (scale score 02/16/23 50 mg-325 mg-40 mg tablet 4-6) #10 tabs ondansetron 4 mg disintegrating 4 mg PO DAILY PRN nausea and 02/16/23 tablet vomiting 5 days #14 tabs albuterol sulfate 90 mcg/actuation 2 inh inhalation Q4-6H PRN 02/23/23 breath activated powder inhaler shortness of breath or wheezing #1 ea benzonatate 100 mg capsule 100 mg PO BID PRN cough #20 caps 02/23/23 ketorolac 10 mg tablet 10 mg PO TID PRN pain 5 days #15 02/23/23 tabs prednisone 20 mg tablet 40 mg (2 x 20 mg) PO DAILY 5 days 02/23/23 #10 tabs Synthroid 150 mcg tablet 150 mcg PO DAILY #30 tabs 09/12/23 (levothyroxine) Allergies Allergy/AdvReac Type Severity Reaction Status Date / Time diphenhydramine Allergy Intermediate SEVERE Verified 09/12/23 15:30 [From BENYO] LETHARGY Review of Systems 2 Review of Systems: Constitutional : No Weight loss, No Fever, No Chills, No Night Sweats, No Fatigue, No Malaise ENT/Mouth : No Hearing loss, No Ear Pain, No Nasal Congestion, No Sinus Pain, No Hoarseness, No sore throat, No Rhinorrhea, No Swallowing Difficulty Eyes: No Eye Pain, No Swelling, No Redness, No Foreign Body, No Discharge, No Vision Changes Cardiovascular : No Chest Pain, No Orthopnea, No Edema, No Palpitations Respiratory : No Cough, No Sputum, No Wheezing, No Smoke Exposure, complaining of Dyspnea Gastrointestinal : No Nausea, No Vomiting, No Diarrhea, No Constipation, No abdominal Pain, No Hematochezia, No Melena Genitourinary : no irregular bleeding, No Dysuria, No Urinary Frequency, No Hematuria, No Urinary Incontinence, No Urgency, No Flank Pain, No Urinary Flow Changes, No Hesitancy Musculoskeletal : No joint pain, No Myalgias, No Joint Swelling Skin : No Skin Lesions, No rash Neuro : No Weakness, No Numbness, No Paresthesias, No Loss of Consciousness, No Dizziness, No Headache Psych : No Anxiety/Panic, No Depression, No SI/HI/AH/VH, No Social Issues, Heme/Lymph: No Bruising, No Bleeding,No Lymphadenopathy Endocrine : No Polyuria, No Polydipsia, No Temperature Intolerance [facility] Past Medical History Medical History Panic attacks Asthma Depression Vitamin D deficiency Hypothyroidism Thyroid activity decreased Surgical History Hx of cervical polypectomy Hx of lithotripsy Hx of gastric bypass Family History Family History Father Leukemia Cancer Mother Diabetes mellitus Hypertension Social History Social History Household Members: Spouse Housing: Apartment Alcohol intake: former Comment: medicated with ketorolac and po tylenol Patient Tobacco Use Status: Never used Tobacco Current occupational status: unemployed Sexual orientation: Straight/Heterosexual Gender identity: Female Physical Exam ED Vital Signs: Vital Signs - 24 hr 10/18/22 04:41 10/18/22 06:03 Temperature 97.2 F 98.4 F Pulse Rate 76 62 Respiratory Rate 28 H 13 Blood Pressure 111/72 101/62 Pulse Oximetry 100 95 Oxygen Delivery Method Room Air Room Air BMI result Body Mass Index 32.3 Const Other: Appearance: Alert. Oriented X3. No acute distress. Very anxious Eyes: Pupils equal, round and reactive to light. ENT: Pharynx normal. Neck: Normal inspection. Neck supple. No lymph nodes noted. No crepitus CVS: Normal heart rate and rhythm. Pulses normal. Normal S1 and S2 Respiratory: No respiratory distress. Hyperventilating, Breath sounds normal. No Wheezing. No rales Abdomen: Soft and nontender. No rigidity. No distention. Skin: Skin warm and dry. Normal skin color. Normal skin turgor. Extremities: No lower extremity edema. No Lacerations. No Rash Neuro: Oriented X 3. No motor deficit. No sensory deficit. Moving all extremities. No slurred speech. CN 2 through 12 grossly intact Psych: calm, cooperative, normal affect Medications Administered Discontinued Medications Generic Name Dose Route Start Last Admin Trade Name Freq PRN Reason Stop Dose Admin Al Hydroxide/Mg Hydroxide 30 ml 10/18/22 05:09 10/18/22 05:25 Magnesium Hydrox/Alum Hydrox 30 Ml Oral.Susp PO 10/18/22 05:10 30 ml ONCE ONE Administration Lorazepam 2 mg 10/18/22 05:04 10/18/22 05:25 Lorazepam 1 Mg Tablet PO 10/18/22 05:05 2 mg ONCE ONE Administration Medical Decision Making Medical Decision Making [facility] Narrative: My interpretation of EKG: Sinus bradycardia, heart rate 57, no ST segment depression or elevation, no T-wave inversion, QTC 420 -all of patient's labs pending -patient was given Ativan. Patient feeling much better, no longer having anxiety or shortness of breath -my interpretation of the labs: Troponin negative EKG negative Differential Diagnosis Differential Diagnoses: The differential diagnosis associated with the presentation includes (Panic attack, NSTEMI, STEMI) Lab Data 10/18/22 05:00 10/18/22 05:00 Labs: Lab Results 10/18/22 Range/Units 05:00 WBC 7.8 (4.8-10.8) X10*3/uL RBC 4.33 (4.20-5.50) X10*6/uL Hgb 13.2 (12.0-16.0) g/dl Hct 39.5 (37.0-47.0) % MCV 91.2 (80.0-98.0) fL MCH 30.5 (27.0-33.0) pg MCHC 33.4 (31.0-35.0) g/dl RDW 13.6 (11.0-16.0) % Plt Count 175 (160-400) X10*3/uL MPV 10.3 (9.4-12.3) fL Immature Gran % (Auto) 0.3 (0.0-0.4) % Neut % (Auto) 49.6 (45-73) % Lymph % (Auto) 41.8 H (20-40) % [place] % (Auto) 6.8 (2-11) % Eos % (Auto) 1.2 (0-4) % Baso % (Auto) 0.3 (0-2) % Lymph # (Auto) 3.2 (1.2-4.9) X10*3/uL [place] # (Auto) 0.5 (0.1-1.2) X10*3/uL Eos # (Auto) 0.1 (0.0-0.4) X10*3/uL Baso # (Auto) 0.0 (0.0-0.2) X10*3/uL Abs Immat Gran (auto) 0.02 (0.00-0.03) X10*3/uL Absolute Neuts (auto) 3.9 (2.0-8.3) x10*3/uL Absolute Nucleated RBC 0.000 (0.0-0.012) X10*3/uL Nucleated RBC % (auto) 0.0 (0.0-0.2) /100WBC Sodium 143 (135-145) mmol/L Potassium 3.8 (3.3-5.1) mmol/L Chloride 109 H (96-108) mmol/L Carbon Dioxide 22 (22-29) mmol/L Anion Gap 16 (12-20) BUN 14 (9-16) mg/dL Creatinine 0.74 (0.5-1.4) mg/dL Estim Creat Clear Calc 93.9 Estimated GFR > 60 Random Glucose 124 H (60-115) mg/dL Calcium 9.1 (8.4-10.2) mg/dL Troponin I High Sens < 2.7 (<3.5-17.0) ng/L Discharge Plan Discharge Clinical Impression: Panic attack Patient Disposition: Home, Self-Care Instructions: Panic Attack (ED) Additional Instructions: Please follow-up with your primary care physician tomorrow. If you have any worsening or new symptoms, please return to the emergency room or call 911 Prescriptions: No Action cholecalciferol (vitamin D3) 50 mcg (2,000 unit) capsule 50 mcg PO DAILY Qty: 90 2RF celecoxib 200 mg capsule 200 mg PO BID Qty: 60 0RF albuterol sulfate 90 mcg/actuation HFA aerosol inhaler 2 puff inhalation Q4-6H PRN (Reason: shortness of breath or wheezing) Qty: 6.7 0RF ondansetron 4 mg tablet,disintegrating 4 mg PO DAILY PRN (Reason: nausea and vomiting) 5 Days Qty: 14 0RF qtopbvgsfe-ovkcdpdlmpskx-jepf 50-325-40 mg tablet 1 tab PO Q6H PRN (Reason: pain (scale score 4-6)) Qty: 10 0RF ketorolac 10 mg tablet 10 mg PO TID PRN (Reason: pain) 5 Days Qty: 15 0RF albuterol sulfate 90 mcg/actuation aerosol powdr breath activated 2 inh inhalation Q4-6H PRN (Reason: shortness of breath or wheezing) Qty: 1 0RF benzonatate 100 mg capsule 100 mg PO BID PRN (Reason: cough) Qty: 20 0RF prednisone 20 mg tablet 40 mg PO DAILY 5 Days Qty: 10 0RF lorazepam 0.5 mg tablet 0.5 mg PO BEDTIME PRN (Reason: Anxiety) omeprazole 20 mg capsule,delayed release(DR/EC) 20 mg PO DAILY hydroxyzine HCl 25 mg tablet 25 - 50 mg PO TID PRN (Reason: anxiety) valacyclovir 500 mg tablet 500 mg PO DAILY baclofen 10 mg tablet 10 mg PO TID diclofenac sodium 1 % gel topical levothyroxine [Synthroid] 150 mcg tablet 150 mcg PO DAILY Qty: 30 5RF Interventions: ED Discharge Assessment Last Done: 10/18/22 07:11 Discharge Date/Time: 10/18/22 07:12 Print Language: Albanian
[2022-10-18 05:13] LABS: MANUAL DIFF FLAG NO
[2022-10-18 05:15] LABS: Basophils Percent Auto 0.3 % (0-2); Eosinophils Absolute Auto 0.1 X10*3/uL (0.0-0.4); Eosinophils Percent Auto 1.2 % (0-4); Hematocrit 39.5 % (37.0-47.0); Hemoglobin 13.2 g/dl (12.0-16.0); Imm Gran Abs Auto 0.02 X10*3/uL (0.00-0.03); Imm Gran Pct Auto 0.3 % (0.0-0.4); Lymphocytes Absolute Auto 3.2 X10*3/uL (1.2-4.9); Lymphocytes Percent Auto 41.8 % (20-40); Mean Corpuscular HGB Conc 33.4 g/dl (31.0-35.0); Mean Corpuscular Hemoglobin 30.5 pg (27.0-33.0); Mean Corpuscular Volume 91.2 fL (80.0-98.0); Mean Platelet Volume 10.3 fL (9.4-12.3); Monocytes Absolute Auto 0.5 X10*3/uL (0.1-1.2); Monocytes Percent Auto 6.8 % (2-11); Neutrophils Absolute Auto 3.9 x10*3/uL (2.0-8.3); Neutrophils Percent Auto 49.6 % (45-73); Platelet Count 175 X10*3/uL (160-400); Red Blood Count 4.33 X10*6/uL (4.20-5.50); Red Cell Distribution Width 13.6 % (11.0-16.0); White Blood Count 7.8 X10*3/uL (4.8-10.8)
[2022-10-18 05:28] LABS: Anion Gap 16 (12-20); Blood Urea Nitrogen 14 mg/dL (9-16); Calcium 9.1 mg/dL (8.4-10.2); Carbon Dioxide 22 mmol/L (22-29); Chloride 109 mmol/L (96-108); Creatinine Clr Calc Pharmacy 93.9; Estimated Glomerular Filt Rate > 60; Glucose Random 124 mg/dL (60-115); Potassium 3.8 mmol/L (3.3-5.1); Sodium 143 mmol/L (135-145)
--- NOTE | 2022-10-18 05:31 | PC.NURSE ---
pt a&o, pt complaining of burning sensation, pt medicated per mar, labs drawn and IV Placed, No retraction, pt is able to speak in full sentence. Will continue to monitor.
[2022-10-18 06:03] VITALS: BP 101/62; PULSE 62; RESP 13; TEMP 36.9; O2SAT 95
--- NOTE | 2022-10-18 07:00 | PC.NURSE ---
Reviewed discharge instruction with pt verbalized understanding. no sign of distress.
== END 2022-10-18 07:12 | disposition home or self-care (01) ==
PROVIDERS: Emergency Provider Emergency Medicine
DX: F41.0 Panic disorder [episodic paroxysmal anxiety] (principal); R06.02 Shortness of breath; F41.9 Anxiety disorder, unspecified
CPT/HCPCS: 36415; 71045; 80048; 84484; 85025; 93005; 99283; 99284

== ENCOUNTER 2022-11-18 11:16 | Outpatient (AMB) | payer OTHER, SELFPAY ==
--- NOTE | 2022-11-18 11:57 | MHC.OFFVIS ---
Intake Vital Signs 11/18/22 12:05 Height 5 ft 4 in Weight 188 lb BMI 32.3 Intake Visit Reasons: ov- Left shoulder tendinitis last inj 10/07/22 Intake Note: Sudha is a 52 year old right hand dominant female who presents today for a follow up of left shoulder pain, last injection 10/07/22. Presents today to discuss further treatment. Allergies diphenhydramine [From BENADRYL] Allergy (Intermediate, Verified 11/18/22 12:04) SEVERE LETHARGY HPI ov- Left shoulder tendinitis last inj 10/07/22 HPI Details Sudha is a 52 year old woman with left shoulder tendinitis. She was last seen, and injected, on 10/07/22, and returns to discuss alternative treatment options. She continues to have pain with daily activity, worse with reaching activities. Her pain is deep in the shoulder and she says it feels constant She denies any falls or known injuries. She found no relief from PT or NSAIDs, and says the injection gave no relief. [facility] Medical History Asthma Depression Hypothyroidism Panic attacks Thyroid activity decreased Vitamin D deficiency Surgical History Hx of cervical polypectomy Hx of gastric bypass Hx of lithotripsy Family History Father Leukemia Cancer Mother Diabetes mellitus Hypertension Social History Household Members: Spouse Housing: Apartment Alcohol intake: never Patient Tobacco Use Status: Never used Tobacco Current occupational status: unemployed Sexual orientation: Straight/Heterosexual Gender identity: Female Female Reproductive History Menstrual Age of Menarche: 12 Review of Systems Const All systems reviewed & are unremarkable except as noted in HPI and below Physical Exam Vital Signs: BMI result Body Mass Index 32.3 Const General: no acute distress and alert Orientation/consciousness: patient oriented x3 Neuro General: patient oriented x3 Extrem Other: Left Shoulder: + H&N Pain with ER past 25 degrees ER 30 degrees compared to 45 degrees of contralateral arm Psych Appearance: grossly normal Affect: normal affect Attitude: cooperative Office Procedures Joint Injection/Drain Joint Injection/Drain Details: Injected 1 mL of Decadron and 3 mL 1% lidocaine and 3 mL of 0.25% Marcaine. Site was prepped using aseptic technique. Patient tolerated the procedure well. Primary Site: left shoulder (GH joint) Approach Used: posterolateral Coding 14734 - Large joint Procedure code (CPT) selection complete Results Reviewed Results Reviewed: 11/18/22 12:20 Lidocaine HCl 2 % MPF [Xylocaine 2 % MPF] 5 ml .ROUTE .STK-MED ONE dexAMETHasone sod phosphate [Decadron] 4 mg .ROUTE .STK-MED ONE I personally reviewed relevant MR images 1. Mild supraspinatus tendinosis. Mild articular surface and bursal surface fraying, as detailed above. ? 2. Mild subscapularis tendinosis. ? 3. Mild edema in the inferior capsule, could be related to injury or capsulitis in the appropriate clinical circumstance. Assessment & Plan Assessment & Plan (1) Left shoulder tendinitis: Code(s): M77.8 - Other enthesopathies, not elsewhere classified (2) Capsulitis of left shoulder: Code(s): M77.8 - Other enthesopathies, not elsewhere classified Plan: This is a 52 year old woman with left shoulder capsulitis. She has pain with daily activity, worse with overhead activity and at night. She found no relief from PT or NSAIDs, and her injection from 10/07/22 gave her no relief. I discussed her diagnosis and treatment options. She is hesitant to undergo surgery and I don't think it would benefit her. . I recommend rest and she avoid any heavy or overhead activities. I injected her left GH joint today, which she tolerated well. She can follow up prn. Plan Scribed for Kane Downey MD by J Carlos Calderon, medical lab director, on 11/18/22 at 12:15 PM, EST. Coding Level of Care Code Est Pt Level 4 (54945) Diagnoses Left shoulder tendinitis M77.8 Capsulitis of left shoulder M77.8 CPT Codes Coding - Large joint: 01489 - Large joint ([id number])
[2022-11-18 12:05] VITALS: BMI 32.3
== END 2022-11-18 12:31 | disposition home or self-care (01) ==
PROVIDERS: Visit Provider Orthopaedic Surgery
DX: M77.8 Other enthesopathies, not elsewhere classified (principal); M75.32 Calcific tendinitis of left shoulder
CPT/HCPCS: 20610; 99214

== ENCOUNTER → 2022-11-18 11:16 | Outpatient (BNVA) | payer OTHER, SELFPAY | PROVIDERS: Visit Provider Orthopaedic Surgery | DX: M77.8 Other enthesopathies, not elsewhere classified (principal) | CPT/HCPCS: 20610; 99212; J1100 ==

== ENCOUNTER 2023-01-02 09:39 | Outpatient (AMB) | payer OTHER, SELFPAY ==
--- NOTE | 2023-01-02 09:40 | MHC.OFFVIS ---
Intake Intake Visit Reasons: v- Left shoulder tendinitis last inj3 Intake Note: The patient agreed to use of a ophthalmic medical assistant during this encounter. Scribed for Dr. Kane Downey by Larisa Rutherford, ophthalmic medical assistant, on 01/02/2023. Sudha is a 53 year old female who presnets today for a follow up of her left shoulder tendonitis. Last Injection 11/18/22. Patient reports that this injection was not helpful and she is having significant pain of the shoulder, she is having trouble lifting the arm. The shoulder has gotten worse since she was last seen. She feels pain in the shoulder all the time, the shoulder is throbbing. She is taking ibuprofen which was not helpful. She denies numbness and tingling. She explains that she was supposed to be referred to pain mgmt, but has not heard from them and is very upset about this. Keno Writer / Runner Required: Yes Keno Writer / Runner Name: [id number] Allergies diphenhydramine [From BENADRYL] Allergy (Intermediate, Verified 11/18/22 12:04) SEVERE LETHARGY HPI v- Left shoulder tendinitis last inj3 HPI Details Sudha Regan is a Salvadorean speaking 53 year old female who presents today for a follow up of her left shoulder tendonitis. She is interested in left shoulder injections. SHe had an injection in the GH joint at last visit which was not helpful. She has pain at ngiht and with activity, SHe feels her motion is diminished. She takes NSAIDs occasionally as they upset her stomach. PFSH Medical History Asthma Depression Hypothyroidism Panic attacks Thyroid activity decreased Vitamin D deficiency Surgical History Hx of cervical polypectomy Hx of gastric bypass Hx of lithotripsy Family History Father Leukemia Cancer Mother Diabetes mellitus Hypertension Social History Household Members: Spouse Housing: Apartment Alcohol intake: never Patient Tobacco Use Status: Never used Tobacco Current occupational status: unemployed Sexual orientation: Straight/Heterosexual Gender identity: Female Female Reproductive History Menstrual Age of Menarche: 12 Physical Exam Extrem Other: ER to 10 deg with pain compared to 50 on right side Office Procedures Joint Injection/Drain Joint Injection/Drain Details: Injected 1 mL of Decadron and 3 mL 1% lidocaine and 3 mL of 0.25% Marcaine. Site was prepped using aseptic technique. Patient tolerated the procedure well. Primary Site: left shoulder Approach Used: posterolateral Coding - Large joint Procedure code (CPT) selection complete Results Reviewed Results Reviewed: 01/02/23 10:06 BUPivacaine MPF 0.25 % [Sensorcaine-MPF 0.25% 10 ML] 10 ml .ROUTE .STK-MED ONE Lidocaine HCl 2 % MPF [Xylocaine 2 % MPF] 5 ml .ROUTE .STK-MED ONE dexAMETHasone sod phosphate [Decadron] 4 mg .ROUTE .STK-MED ONE Assessment & Plan Assessment & Plan (1) Capsulitis of left shoulder: Code(s): M77.8 - Other enthesopathies, not elsewhere classified Plan: Adhesive capsulitis left hsoulder. I explained the pathophysiology and the treatment options. Injected SA space. PT and pain management. Celebrex Rx. Orders: Orders PT Evaluation and Treatment Today M77.8 - Other enthesopathies, not elsewhere classified Referrals Pain Management Referral M77.8 - Other enthesopathies, not elsewhere classified Coding Level of Care Code Est Pt Level 4 (90230) Diagnoses Capsulitis of left shoulder M77.8 CPT Codes Coding - Large joint: 90021 - Large joint ([id number])
== END 2023-01-02 10:41 | disposition home or self-care (01) ==
PROVIDERS: Visit Provider Orthopaedic Surgery
DX: M77.8 Other enthesopathies, not elsewhere classified (principal)
CPT/HCPCS: 20610; 99213

== ENCOUNTER → 2023-01-02 09:39 | Outpatient (BNVA) | payer OTHER, SELFPAY | PROVIDERS: Visit Provider Orthopaedic Surgery | DX: M75.02 Adhesive capsulitis of left shoulder (principal) | CPT/HCPCS: 20610; J1100 ==

== ENCOUNTER 2023-01-10 14:53 | Outpatient (AMB) | payer OTHER, SELFPAY ==
--- NOTE | 2023-01-10 14:53 | A.OFFVIS_ITS ---
Intake Intake Visit Reasons: Hot Flashes/Medication Furniture Decals Inspector Required: Yes Furniture Decals Inspector Language: Film Processing Shift Supervisor Name: Glenys TAYLOR Information Interpreted: non-clinical & clinical Allergies diphenhydramine [From BENADRYL] Allergy (Intermediate, Verified 01/10/23 14:54) SEVERE LETHARGY Post menopausal: Yes HPI HPI Comments History of Present Illness Details The patient scheduled tele health visit complaining of hot flashes over the last few months and would like to discuss different options of treatment. Last co testing was negative in 07/06, last mammogram was BI-RADS 1 in 09/04 [facility] Medical History Panic attacks Asthma Depression Vitamin D deficiency Hypothyroidism Thyroid activity decreased Surgical History Hx of cervical polypectomy Hx of lithotripsy Hx of gastric bypass Family History Father Leukemia Cancer Mother Diabetes mellitus Hypertension Social History Household Members: Spouse Housing: Apartment Alcohol intake: never Patient Tobacco Use Status: Never used Tobacco Current occupational status: unemployed Sexual orientation: Straight/Heterosexual Gender identity: Female Female Reproductive History Menstrual Age of Menarche: 12 Review of Systems Const All systems reviewed & are unremarkable except as noted in HPI and below Reports as per HPI and Reports no additional complaints GI Reports no additional complaints Reports no additional complaints Assessment & Plan Assessment & Plan (1) Hot flash, menopausal: Code(s): N95.1 - Menopausal and female climacteric states Plan: Screening mammogram ordered. Discussed with the patient the options of t reatment of hot flashes including hormonal replacement therapy, all the pros, cons, risks and benefits (benefits= prevention of hot flashes, atrophic vaginitis, osteoporosis, decrease colon ca risk; also discussed with the patient the risks of NV, Breast ca, DVT, PE, Strokes). In addition, discussed with the patient non hormonal treatment options for hot flashes treatment in surgical menopausal patient. Options discussed with the patient include the following: SSRI/SNRIs , difficulty has been demonstrated in multiple trials clinical response is more rapid (days) than typical response to SSRI for depression (weeks), they are equally effective in natural versus surgical menopause, they have similar modest benefit for hot flashes; Paroxetine 7.5 mg per day is suggested to be as a 1st choice the SSRI/SNRI such, FDA approved for treatment of hot flashes. Citalopram, Effexor , Gabapentin i Other options include the following: Clonidine patch, Oxybutynin, Depo-Provera or Norethindrone acetate at 10 mg p.o. q.d. At the end of the discussion, the patient stated that she would like to think about all the options will call us back. All questions answered, the patient verbalized understanding. I spent a total of 20 minutes reviewing the chart, talking to the patient via video and documenting in the medical record. The Communication with the patient was through Glenys Frederick MA, certified macadam raker. Orders: Orders MM screening mammo BI Today Z12.31 - Encounter for screening mammogram for malignant neoplasm of breast Telehealth Telehealth Location of provider rendering services: practice address Location of patient: address on file Patient Identification confirmed using: Name, : Yes Telehealth method: video Patient verbally consented to treatment: Yes Patient verbally consented to billing insurance company: Yes Patient informed of any privacy concerns related to visit: Yes Coding Level of Care Code Tele Est Pt Level 3 (40351) Diagnoses Hot flash, menopausal N95.1
== END 2023-01-10 16:20 | disposition home or self-care (01) ==
LOC: HO.HWS 14:53
PROVIDERS: Visit Provider Obstetrics & Gynecology
DX: N95.1 Menopausal and female climacteric states (principal)
CPT/HCPCS: 99213

== ENCOUNTER → 2023-01-10 14:53 | Outpatient (BNVA) | payer OTHER, SELFPAY | PROVIDERS: Visit Provider Obstetrics & Gynecology ==

== ENCOUNTER 2023-01-12 12:24 | Outpatient (AMB) | payer OTHER, SELFPAY ==
--- NOTE | 2023-01-12 12:53 | MHC.OFFVIS ---
Intake Vital Signs 01/12/23 13:01 Height 5 ft 4 in Weight 189 lb BMI 32.4 BP 146/86 H Blood Pressure Location Lt brachial Position Sitting Respiration 14 Pulse 64 Pulse Source Pulse Oximeter Pulse Oximetry (%) 97 Oxygen Delivery Method Room Air Intake Visit Reasons: Other enthesopathies, not elsewhere classified Allergies diphenhydramine [From BENADRYL] Allergy (Intermediate, Verified 01/12/23 12:53) SEVERE LETHARGY HPI HPI Comments History of Present Illness Details Sudha is a very pleasant 53 year old Thai speaking patient who presents to the office today accompanied by her SUPERVISOR [employer]AL [employer]URNITURE FABRICATION, Porfirio, for evaluation and management of her chronic left shoulder pain. Certified, Hospital provided, beverage distiller offered, patient comfortable utilizing her SUPERVISOR [employer]IT[employer] FABRICATION. Patient reports she has been suffering with left shoulder pain for approximately 7 months. She denies inciting injury. She is being followed by Orthopedics who ultimately referred her here for evaluation, was told not a candidate for surgical intervention. She has tried nonsteroidal anti-inflammatory medications which do not provide her any relief, she tried and failed physical therapy after 2 weeks. She has received 3 steroid injections which also provided no relief. She reports pain is constant, currently rated as 10/10, worse with movement particularly any type of reaching movements. She denies numbness, tingling or weakness of the left upper extremity. Endorses pain to the entire shoulder ending above the elbow. In terms of muscle damage condition is described as sharp, aching, throbbing, burning and cramping. Pain is negatively impacting patient enjoyment of life, general activity, mood, normal work, recreational activities, relationships with people and sleep. PFSH Medical History Panic attacks Asthma Depression Vitamin D deficiency Hypothyroidism Thyroid activity decreased Surgical History Hx of cervical polypectomy Hx of lithotripsy Hx of gastric bypass Family History Father Leukemia Cancer Mother Diabetes mellitus Hypertension Social History Household Members: Spouse Housing: Apartment Alcohol intake: never Patient Tobacco Use Status: Never used Tobacco Current occupational status: unemployed Sexual orientation: Straight/Heterosexual Gender identity: Female Female Reproductive History Menstrual Age of Menarche: 12 Review of Systems Const All systems reviewed & are unremarkable except as noted in HPI and below Physical Exam Vital Signs: Last Vital Signs Pulse 64 01/12/23 13:01 Resp 14 01/12/23 13:01 BP 146/86 H 01/12/23 13:01 Pulse Ox 97 01/12/23 13:01 Oxygen Delivery Method Room Air 01/12/23 13:01 BMI result Body Mass Index 32.4 General: awake, alert, oriented. Answers questions appropriately. Fully engaged in examination. Skin: warm, dry, intact HEENT: Normocephalic. Hearing intact. Cardiac: External chest normal in appearance. Respiratory: No cough, audible wheezing or stridor. Abdomen: without gross distension. MS: No obvious swelling or deformities. Limited range of motion in a planes with increased pain. Tender to palpation over scapula, AC and GH joints. Neurological: Oriented to person, place, time and situation. Thought process intact. Psychiatric: Appropriate mood and affect. Good judgment and insight. Results Reviewed Results Reviewed: 09/08/2022 MRI SHOULDER WITHOUT CONTRAST, LEFT FINDINGS: CORACOACROMIAL ARCH: No significant acromioclavicular arthritis. Trace edema/fluid in the subacromial-subdeltoid space. Undersurface of the acromion is concave with lateral downsloping. ROTATOR CUFF: Mild supraspinatus tendinosis. Mild articular surface fraying anteriorly, and mild bursal surface fraying in the posterior fibers. Infraspinatus, teres minor is intact. Mild subscapularis tendinosis. ROTATOR CUFF MUSCLES: No muscle atrophy or fatty infiltration. BICEPS TENDON: Intact. LABRUM/CAPSULE: No definite labral tear is seen. Mild edema in the inferior capsule. GLENOHUMERAL JOINT/MARROW: No fracture. Degenerative cysts in the posterior greater tuberosity. No significant effusion. IMPRESSION: 1. Mild supraspinatus tendinosis. Mild articular surface and bursal surface fraying, as detailed above. 2. Mild subscapularis tendinosis. 3. Mild edema in the inferior capsule, could be related to injury or capsulitis in the appropriate clinical circumstance. Assessment & Plan Assessment & Plan (1) Left shoulder pain: Code(s): M25.512 - Pain in left shoulder (2) Capsulitis of left shoulder: Code(s): M77.8 - Other enthesopathies, not elsewhere classified (3) Left shoulder tendinitis: Code(s): M77.8 - Other enthesopathies, not elsewhere classified Herrera Haley is a very pleasant 53-year-old female who presented to the office today for evaluation management of her chronic left shoulder pain. She was referred from ortho, deemed non-surgical at this time. Patient has exhausted conservative therapy including NSAIDs, physical therapy and steroid injections. Discussed options for treatment including diagnostic interventional testing, steroid injections, peripheral nerve stimulation with Sprint, RFA and more permanent neuromodulation. Informational pamphlets provided. Will schedule patient for diagnostic US/Fluoroscopy guided suprascapular nerve block with local anesthetic. If patient reports improvement in pain and function in the hours following the diagnostic nerve block will plan for left suprascapular sprint PNS. All questions and concerns have been answered and patient agrees with the plan. Follow up after injections and sooner if needed. Coding Level of Care Code New Pt Level 4 (11099) Diagnoses Left shoulder pain M25.512 Capsulitis of left shoulder M77.8 Left shoulder tendinitis M77.8
[2023-01-12 13:01] VITALS: BP 146/86; PULSE 64; RESP 14; O2SAT 97; BMI 32.4
== END 2023-01-12 13:17 | disposition home or self-care (01) ==
PROVIDERS: Visit Provider Registered Nurse Emergency
DX: M25.512 Pain in left shoulder (principal); M77.8 Other enthesopathies, not elsewhere classified
CPT/HCPCS: 99204

== ENCOUNTER → 2023-01-12 12:24 | Outpatient (BNVA) | payer OTHER, SELFPAY | PROVIDERS: Visit Provider Registered Nurse Emergency ==

== ENCOUNTER 2023-02-10 08:49 | Outpatient (AMB) | payer OTHER, SELFPAY ==
--- NOTE | 2023-02-10 09:06 | A.OFFVIS_ITS ---
Intake Vital Signs 02/10/23 09:08 Height 5 ft 4 in Weight 189 lb BMI 32.4 BP 127/75 Blood Pressure Location Rt brachial Position Sitting Respiration 14 Pulse 62 Pulse Source Pulse Oximeter Pulse Oximetry (%) 98 Oxygen Delivery Method Room Air Intake Visit Reasons: Left Dx suprascapular NB/confirmed Allergies diphenhydramine [From BENADRYL] Allergy (Intermediate, Verified 02/10/23 09:09) SEVERE LETHARGY Medication List - Last Reconciled 02/10/23 by Laura Alegria LPN albuterol sulfate 90 mcg/actuation 2 puffs inhalation Q4-6H PRN celecoxib 200 mg PO BID cholecalciferol (vitamin D3) 50 mcg PO DAILY hydroxyzine HCl 25 - 50 mg PO TID PRN levothyroxine 137 mcg PO DAILY 90 days lorazepam 0.5 mg PO BEDTIME PRN omeprazole 20 mg PO DAILY valacyclovir 500 mg PO DAILY HPI Left Dx suprascapular NB/confirmed HPI Details 53-year-old female who presents today to the office for a left diagnostic suprascapular nerve block. Denies any recent cough, cold, infection, fever or other significant changes in medical history since last office visit. [facility] Medical History Panic attacks Asthma Depression Vitamin D deficiency Hypothyroidism Thyroid activity decreased Surgical History Hx of cervical polypectomy Hx of lithotripsy Hx of gastric bypass Family History Father Leukemia Cancer Mother Diabetes mellitus Hypertension Social History Household Members: Spouse Housing: Apartment Alcohol intake: never Patient Tobacco Use Status: Never used Tobacco Current occupational status: unemployed Sexual orientation: Straight/Heterosexual Gender identity: Female Female Reproductive History Menstrual Age of Menarche: 12 Review of Systems Const All systems reviewed & are unremarkable except as noted in HPI and below Physical Exam Vital Signs: Last Vital Signs Pulse 62 02/10/23 09:08 Resp 14 02/10/23 09:08 BP 127/75 02/10/23 09:08 Pulse Ox 98 02/10/23 09:08 Oxygen Delivery Method Room Air 02/10/23 09:08 BMI result Body Mass Index 32.4 General: Appears afebrile. Alert and oriented. Mood and affect appropriate. Follows and participates in conversation appropriately. Respiratory effort is unlabored. Able to transition from sit to stand unassisted. Ambulates with bilaterally normal heel strike and toe off. Office Procedures Nerve Block Details: Left diagnostic suprascapular nerve block, US guided. After obtaining written consent, pre-procedure blood pressure and heart rate were stable and recorded in the nursing record. The patient was placed in the sitting position. The area overlying the peripheral nerve was widely prepped with chloraprep, allowed to dry and sterilely draped. Using ultrasound, the appropriate landmarks were identified. An 80 mm 21 gauge echostim needle was advanced under ultrasound guidance to the suprascapular notch. Aspiration was negative for heme and synovial fluid. 2 cc of bupivacaine 0.5% was injected around the targeted nerve. The needles were removed, skin khai ansed and a sterile bandage was applied. The patient tolerated the procedure well and no complications were encountered. Following the procedure the patient's vital signs were stable. The patient was discharged home in good condition with post-procedural instructions. Time Out: Immediately prior to the procedure, the following was verbally confirmed that there is a signed consent form and that the correct patient, planned procedure, site and side are consistent with documentation and that necessary equipment and/or blood products are available prior to the start of the case. Complications: none EBL: <5 cc Note: An ultrasound image of the injection was taken and stored in the permanent record. 47864 - Suprascapular (Left, Ultrasound guided) Procedure code (CPT) selection complete Results Reviewed Results Reviewed: No imaging is available for review. Assessment & Plan Assessment & Plan (1) Left shoulder pain: Code(s): M25.512 - Pain in left shoulder Plan Patient is status post left diagnostic suprascapular nerve block. Patient tolerated procedure well and was discharged home in stable condition with discharge instructions. All questions were answered. We will follow-up in two weeks via telephone or in clinic to assess response to therapy. A follow-up appointment was made during today's visit. Scribed for Dr. Cid by Praful Brian medical insurance claims processor, on 02/10/2023. I, Dr. Cid, have personally reviewed and agree with the information entered by the scribe. Coding Level of Care Code Procedure Only Diagnoses Left shoulder pain M25.512 CPT Codes Nerve Block - Nerve Block 4: 61355 - Suprascapular ([id number])
[2023-02-10 09:08] VITALS: BP 127/75; PULSE 62; RESP 14; O2SAT 98; BMI 32.4
== END 2023-02-10 09:50 | disposition home or self-care (01) ==
PROVIDERS: PCP Internal Medicine; Visit Provider Internal Medicine
DX: M25.512 Pain in left shoulder (principal)
CPT/HCPCS: 64418; 76942

== ENCOUNTER → 2023-02-10 08:49 | Outpatient (BNVA) | payer OTHER, SELFPAY | PROVIDERS: PCP Internal Medicine; Visit Provider Internal Medicine | DX: M25.512 Pain in left shoulder (principal) | CPT/HCPCS: 64418 ==

== ENCOUNTER 2023-02-15 08:03 | Outpatient (AMB) | payer OTHER, SELFPAY ==
[2023-02-15 08:12] VITALS: BP 144/74; PULSE 66; RESP 18; O2SAT 97; BMI 32.4
--- NOTE | 2023-02-15 08:12 | MHC.OFFVIS ---
Intake Vital Signs 02/15/23 08:12 Height 5 ft 4 in Weight 189 lb BMI 32.4 BP 144/74 H Blood Pressure Location Lt brachial Position Sitting Respiration 18 Pulse 66 Pulse Source Pulse Oximeter Pulse Oximetry (%) 97 Oxygen Delivery Method Room Air Intake Visit Reasons: s/p Left Dx suprascapular NB /Confirmed Allergies diphenhydramine [From BENADRYL] Allergy (Intermediate, Verified 02/15/23 08:12) SEVERE LETHARGY HPI HPI Comments History of Present Illness Details Sudha presents back to the office today for follow up 1 week s/p diagnostic left suprascapular nerve block. Patient reports that she did not receive any relief after the injection. She is still suffering with significant left shoulder pain, worse with abduction and extension. Prior: Sudha is a very pleasant 53 year old Amharic speaking patient who presents to the office today accompanied by her [employer] SUPERVISOR, Porfirio, for evaluation and management of her chronic left shoulder pain. Certified, Hospital provided, net applications developer offered, patient comfortable utilizing her [employer] SUPERVISOR. Patient reports she has been suffering with left shoulder pain for approximately 7 months. She denies inciting injury. She is being followed by Orthopedics who ultimately referred her here for evaluation, was told not a candidate for surgical intervention. She has tried nonsteroidal anti-inflammatory medications which do not provide her any relief, she tried and failed physical therapy after 2 weeks. She has received 3 steroid injections which also provided no relief. She reports pain is constant, currently rated as 10/10, worse with movement particularly any type of reaching movements. She denies numbness, tingling or weakness of the left upper extremity. Endorses pain to the entire shoulder ending above the elbow. In terms of muscle damage condition is described as sharp, aching, throbbing, burning and cramping. Pain is negatively impacting patient enjoyment of life, general activity, mood, normal work, recreational activities, relationships with people and sleep. PFSH Medical History Panic attacks Asthma Depression Vitamin D deficiency Hypothyroidism Thyroid activity decreased Surgical History Hx of cervical polypectomy Hx of lithotripsy Hx of gastric bypass Family History Father Leukemia Cancer Mother Diabetes mellitus Hypertension Social History Household Members: Spouse Housing: Apartment Alcohol intake: never Patient Tobacco Use Status: Never used Tobacco Current occupational status: unemployed Sexual orientation: Straight/Heterosexual Gender identity: Female Female Reproductive History Menstrual Age of Menarche: 12 Review of Systems Const All systems reviewed & are unremarkable except as noted in HPI and below Physical Exam Vital Signs: Last Vital Signs Pulse 66 02/15/23 08:12 Resp 18 02/15/23 08:12 BP 144/74 H 02/15/23 08:12 Pulse Ox 97 02/15/23 08:12 Oxygen Delivery Method Room Air 02/15/23 08:12 BMI result Body Mass Index 32.4 General: awake, alert, oriented. Answers questions appropriately. Fully engaged in examination. Skin: warm, dry, intact HEENT: Normocephalic. Hearing intact. Cardiac: External chest normal in appearance. Respiratory: No cough, audible wheezing or stridor. Abdomen: without gross distension. MS: No obvious swelling or deformities. Limited range of motion, pain with abduction, extension and I/E rotation. Tender to palpation over scapula, AC and GH joints. Neurological: Oriented to person, place, time and situation. Thought process intact. Psychiatric: Appropriate mood and affect. Good judgment and insight. Results Reviewed Results Reviewed: 09/08/2022 MRI SHOULDER WITHOUT CONTRAST, LEFT FINDINGS: CORACOACROMIAL ARCH: No significant acromioclavicular arthritis. Trace edema/fluid in the subacromial-subdeltoid space. Undersurface of the acromion is concave with lateral downsloping. ROTATOR CUFF: Mild supraspinatus tendinosis. Mild articular surface fraying anteriorly, and mild bursal surface fraying in the posterior fibers. Infraspinatus, teres minor is intact. Mild subscapularis tendinosis. ROTATOR CUFF MUSCLES: No muscle atrophy or fatty infiltration. BICEPS TENDON: Intact. LABRUM/CAPSULE: No definite labral tear is seen. Mild edema in the inferior capsule. GLENOHUMERAL JOINT/MARROW: No fracture. Degenerative cysts in the posterior greater tuberosity. No significant effusion. IMPRESSION: 1. Mild supraspinatus tendinosis. Mild articular surface and bursal surface fraying, as detailed above. 2. Mild subscapularis tendinosis. 3. Mild edema in the inferior capsule, could be related to injury or capsulitis in the appropriate clinical circumstance. Assessment & Plan Assessment & Plan (1) Left shoulder pain: Code(s): M25.512 - Pain in left shoulder (2) Capsulitis of left shoulder: Code(s): M77.8 - Other enthesopathies, not elsewhere classified (3) Left shoulder tendinitis: Code(s): M77.8 - Other enthesopathies, not elsewhere classified Plan Sudha is a very pleasant 53-year-old female who presented to the office today for follow up 1 week s/p left suprascapular nerve block with local anesthetic. Patient reports no improvement in her symptoms, pain or function in the hours after the injection. Patient has exhausted conservative therapy including NSAIDs, physical therapy and steroid injections. Discussed options for treatment including diagnostic interventional testing, steroid injections, peripheral nerve stimulation with Sprint, RFA and more permanent neuromodulation. Will schedule patient for diagnostic US guided diagnostic interscalene nerve block with local anesthetic. If patient reports improvement in pain and function in the hours following the diagnostic nerve block will plan for left interscalene sprint PNS. Discussed repeating PT if no relief with diagnostic interscalene nerve block, patient has failed PT previously but would consider trying again if she does not find relief with diagnostic injection. All questions and concerns have been answered and patient agrees with the plan. Follow up after injection, sooner if needed. Coding Level of Care Code Est Pt Level 3 (07946) Diagnoses Left shoulder pain M25.512 Capsulitis of left shoulder M77.8 Left shoulder tendinitis M77.8
== END 2023-02-15 08:31 | disposition home or self-care (01) ==
PROVIDERS: Visit Provider Registered Nurse Emergency
DX: M25.512 Pain in left shoulder (principal); M77.8 Other enthesopathies, not elsewhere classified
CPT/HCPCS: 99213

== ENCOUNTER → 2023-02-15 08:03 | Outpatient (BNVA) | payer OTHER, SELFPAY | PROVIDERS: Visit Provider Registered Nurse Emergency | DX: M25.512 Pain in left shoulder (principal); M77.8 Other enthesopathies, not elsewhere classified | CPT/HCPCS: 99212 ==

== ENCOUNTER 2023-02-16 09:00 | Outpatient (REF) | payer OTHER, SELFPAY | END 2023-02-16 09:01 | disposition home or self-care (01) | LOC: HO.MAMMO 09:00 | PROVIDERS: PCP Internal Medicine; Visit Provider Obstetrics & Gynecology | DX: Z12.31 Encounter for screening mammogram for malignant neoplasm of breast (principal) | CPT/HCPCS: 77063; 77067 ==

== ENCOUNTER 2023-02-16 09:32 | Emergency (ER) | payer OTHER, SELFPAY ==
[2023-02-16 09:33] VITALS: BP 148/82; PULSE 66; RESP 18; TEMP 36.3; O2SAT 97; BMI 34.2
--- NOTE | 2023-02-16 10:31 | ED.HA ---
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 Headache is localized to the temporal region and behind her eyes. Rates pain 10/10. Does not radiate. Associated symptoms include nausea without vomiting, blurred vision, photophobia. States this feels like her typical migraine. Reports previous episodes where she has had to be evaluated in the ED for pain control. No red flag symptoms. Denies it dizziness, fever, scalp tenderness, jaw claudication, vision loss, neck pain, chest pain, SOB, vomiting, abdominal pain, LE pain/swelling. No recent travel. No history of VTE. Related Data Home Medications Medication Instructions Recorded Confirmed lorazepam 0.5 mg tablet 0.5 mg PO BEDTIME PRN Anxiety 03/05/20 02/10/23 hydroxyzine HCl 25 mg tablet 25 - 50 mg PO TID PRN anxiety 06/08/21 02/10/23 omeprazole 20 mg capsule,delayed 20 mg PO DAILY 06/08/21 02/10/23 release valacyclovir 500 mg tablet 500 mg PO DAILY 01/04/22 02/10/23 Previous Rx's Medication Instructions Recorded albuterol sulfate 90 mcg/actuation 2 puff inhalation Q4-6H PRN 02/26/20 aerosol inhaler shortness of breath or wheezing #6.7 grams levothyroxine 137 mcg tablet 137 mcg PO DAILY 90 days #90 tabs 03/05/20 cholecalciferol (vitamin D3) 50 50 mcg PO DAILY #90 caps 11/29/22 mcg (2,000 unit) capsule celecoxib 200 mg capsule 200 mg PO BID #60 caps 01/30/23 hcytvqllef-vduyomkxgvfbi-yuexwfml 1 tab PO Q6H PRN pain (scale score 02/16/23 50 mg-325 mg-40 mg tablet 4-6) #10 tabs ondansetron 4 mg disintegrating 4 mg PO DAILY PRN nausea and 02/16/23 tablet vomiting 5 days #14 tabs Allergies Allergy/AdvReac Type Severity Reaction Status Date / Time diphenhydramine Allergy Intermediate SEVERE Verified 02/15/23 08:12 [From BENADRYL] LETHARGY Review of Systems Review of Systems: Constitutional: No fever, chills, fatigue, night sweats, weight changes ENT/Mouth: No ear pain, hearing loss, nasal congestion, sinus pain, rhinorrhea, sore throat Eyes: No eye pain, swelling, redness, +photophobia, +blurred vision Cardio: No chest pain, palpitations, VENEGAS, orthopnea, peripheral edema Pulm: No SOB, cough, sputum, wheezing, dyspnea, hemoptysis GI: +nausea, No vomiting, hematemesis, abdominal pain, diarrhea, constipation, hematochezia, melena : No irregular bleeding, dysuria, frequency, urgency, hesitancy, hematuria, flank pain MSK: No back pain, neck pain, joint pain, myalgias Skin: No lesions, rashes Neuro: No weakness, numbness, paresthesias, LOC, dizziness, +headache All other systems reviewed and are negative. [facility] Past Medical History Attestation statement: The following information was validated with the patient. Source: old records reviewed and nursing notes reviewed Medical History Panic attacks Asthma Depression Vitamin D deficiency Hypothyroidism Thyroid activity decreased Surgical History Hx of cervical polypectomy Hx of lithotripsy Hx of gastric bypass Family History Family History Father Leukemia Cancer Mother Diabetes mellitus Hypertension Social History Social History Household Members: Spouse Housing: Apartment Alcohol intake: never Patient Tobacco Use Status: Never used Tobacco Current occupational status: unemployed Sexual orientation: Straight/Heterosexual Gender identity: Female Physical Exam Vital Signs: Vital Signs: Last Vital Signs Temp 98.2 F 02/16/23 14:40 Pulse 86 02/16/23 14:40 Resp 20 02/16/23 14:40 BP 130/78 02/16/23 14:40 Pulse Ox 100 02/16/23 14:40 O2 Del Method Room Air 02/16/23 14:40 BMI result Body Mass Index 34.2 Vital signs stable Const: Other: Patient lying in bed with lights dimmed. General: cooperative, no acute distress, alert and awake Orientation/consciousness: patient oriented x3 Limitations: no limitations HEENT: Other: + no scalp tenderness. No palpable temporal artery. Head: Yes normal to inspection Ears: hearing grossly normal bilaterally General nose exam: Normal external nose present Face and sinus: Yes sinuses nontender Eyes: Other: + photophobia General: appearance normal, both eyes and all related structures Conjunctivae: conjunctivae normal Sclerae: sclerae normal Pupils: Equal, round and reactive pupils present and not fixed EOM: EOMs intact bilaterally Direct Ophthalmoscopy: normal light reflex, no papilledema, fundi normal bilaterally and anterior chamber normal Neck: Neck: Yes normal visual inspection, Yes full ROM, Yes no lymphadenopathy and Yes no meningeal signs Resp: Effort & Inspection: normal respiratory effort Auscultation: clear to auscultation bilaterally Cardio: Rate: regular rate Rhythm: regular rhythm Peripheral pulses: radial pulses present GI: Inspection: Yes normal to inspection Palpation (GI): Soft to palpation and nontender Skin: General skin exam: no rashes or lesions noted Neuro: General: patient oriented x3, gait normal, moves all extremities, no meningeal signs and no focal motor deficits Cranial nerves: Yes CN's II-XII intact bilaterally and Yes Equal, round and reactive pupils present Gait exam (Neuro): Normal gait present Coordination: iorizg-cp-lzjb test normal, zolg-nz-yhoc test normal and Normal rapid alternating movements of the distal upper extremity present (Neuro) Pupils: Normal pupillary reactivity/response: bilateral Extrem: General: Yes normal to inspection, Yes capillary refill normal and Yes no clubbing, cyanosis or edema Course Course Course Narrative: 1147-- EKG showing NSR with a rate of 60 beats per minute, QRS 74, QT 462, no acute ischemic changes or ST elevations. 1209-- on re-evaluation of patient, she states that her headache is now an 8/10 after administration of Fioricet and IV fluids. Will order magnesium and re-evaluate. I do not feel as though imaging is warranted. 1415-- On re-eval patient reports pain improvement with mag, now rates LUNA 3/10. Will discharge patient home with fioricet and zofran. Advised her to purchase OTC magnesium supplements. VSS. Discussed strict return precautions. All questions answered at this time. Patient agreeable with disposition and stable for discharge. Medications Administered Discontinued Medications Generic Name Dose Route Start Last Admin Trade Name Noe PRN Reason Stop Dose Admin Acetaminophen/Butalbital/Caffeine 1 tab 02/16/23 10:30 02/16/23 10:38 Butalb/Acetamin/Caff 50/325/40 Tablet PO 02/16/23 10:31 1 tab ONCE ONE Administration Sodium Chloride 1,000 mls @ 999 mls/hr 02/16/23 10:30 02/16/23 11:57 Ns IV 02/16/23 11:30 Infused .Q1H1M MIGUELANGEL Infusion Magnesium Sulfate 2 gm in 50 mls @ 25 mls/hr 02/16/23 12:05 02/16/23 14:36 Magnesium Sulfate/H2o IV 02/16/23 14:04 Infused ONCE ONE Infusion Medical Decision Making Medical Decision Making MDM Narrative: 53-year-old Citizen Of [place]-speaking female with pmhx significant for fibromyalgia, asthma, depression, anxiety/panic attacks, hypothyroidism presents to the ED today with a complaint of headache x3 days. Vital signs are stable, normotensive. Afebrile. Patient is nontoxic appearing and in no acute distress. Sitting in the room with the lights dimmed. perrla. Exam significant for photophobia on funduscopic exam. There is no scalp tenderness. Temporal artery is not palpable bilaterally. No TMJ. Bilateral EACs are normal. Maxillary sinuses NT. Exam is nonfocal. Clinical concern for headache vs migraine. Unlikely ACS, PE, DVT, CVA/TIA or cerebellar stroke. Unlikely temporal arteritis. Unlikely trigeminal neuralgia. No concern for acute angle closure glaucoma. No concern for otitis externa/media, sinusitis. Plan at this time is EKG, pain control, IV fluids and re-evaluation. I do not feel that imaging of head/brain is warranted at this time. Differential Diagnosis Differential Diagnoses: The differential diagnosis associated with the presentation includes As above. Admission/Observation Not indicated. Independent Interpretation I performed an independent interpretation of an: EKG Interpretation: EKG showing normal sinus rhythm at a rate of 60 beats per minute, QRS 74, QT 462, no acute ischemic changes or ST elevations. External Record Review External record reviewed: Inpatient record Prescription Management I considered prescription management with: Pain Medication Chronic Conditions Patient?s care impacted by: Other (Fibromyalgia, migraines) Critical Care Time Critical Care Time Critical Care Time: No Discharge Plan Discharge Clinical Impression: Migraine Patient Disposition: Home, Self-Care Instructions: Migraine Headache (ED) Additional Instructions: Your symptoms today are consistent with migraine. Your EKG was normal. Your symptoms improved with administration of magnesium in the emergency department. You have been sent a short prescription of Fioricet. Take this as needed for migraines. Do not take this with Excedrin. You may start taking sxtl-yve-sjoqiqd magnesium supplements to prevent further migraines. Zofran has been sent to your pharmacy. Take this as needed for nausea. Follow-up with your primary care provider. Return to the emergency department if her symptoms persist or worsen. The case of an emergency call 911. Carmen s?ntomas hoy son consistentes con la migra?a. Jacobo electrocardiograma fue normal. Carmen s?ntomas mejoraron con la administraci?n de magnesio en el servicio de urgencias. Le smith enviado anum receta breve de Fioricet. Hassell esto seg?n sea necesario para las migra?as. No tome esto con Excedrin. Puede comenzar a cassidy suplementos de magnesio de venta julio para prevenir m?s migra?as. Zofran luna sido enviado a jacobo farmacia. T?young seg?n sea necesario para las n?useas. Octavio un seguimiento con jacobo proveedor de atenci?n primaria. Regrese al departamento de emergencias si carmen s?ntomas persisten o empeoran. El johan de anum llamada de emergencia al 911. Prescriptions: New ondansetron 4 mg tablet,disintegrating 4 mg PO DAILY PRN (Reason: nausea and vomiting) 5 Days Qty: 14 0RF xzyyzgsexv-usihvwoppmhix-qbfo 50-325-40 mg tablet 1 tab PO Q6H PRN (Reason: pain (scale score 4-6)) Qty: 10 0RF No Action cholecalciferol (vitamin D3) 50 mcg (2,000 unit) capsule 50 mcg PO DAILY Qty: 90 2RF celecoxib 200 mg capsule 200 mg PO BID Qty: 60 0RF albuterol sulfate 90 mcg/actuation HFA aerosol inhaler 2 puff inhalation Q4-6H PRN (Reason: shortness of breath or wheezing) Qty: 6.7 0RF lorazepam 0.5 mg tablet 0.5 mg PO BEDTIME PRN (Reason: Anxiety) levothyroxine 137 mcg tablet 137 mcg PO DAILY 90 Days Qty: 90 3RF omeprazole 20 mg capsule,delayed release(DR/EC) 20 mg PO DAILY hydroxyzine HCl 25 mg tablet 25 - 50 mg PO TID PRN (Reason: anxiety) valacyclovir 500 mg tablet 500 mg PO DAILY Stand Alone Forms: Work/School Release Interventions: ED Discharge Assessment Last Done: 02/16/23 14:41 Discharge Date/Time: 02/16/23 14:41 Print Language: Citizen [place]
--- NOTE | 2023-02-16 10:35 | ECG_ITS ---
Test Reason : headache Blood Pressure : / mmHG Vent. Rate : 060 BPM Atrial Rate : 060 BPM P-R Int : 162 ms QRS Dur : 074 ms QT Int : 462 ms P-R-T Axes : 032 004 049 degrees QTc Int : 462 ms Normal sinus rhythm Normal ECG When compared with ECG of 18-OCT-2022 05:00, No significant change was found Referred By: Meme Cruz Electronically Signed By:PATEL LAWRENCE MD
[2023-02-16] MEDS: Butalb/Acetamin/Caff 50/325/40 TABLET 1 TAB PO (10:38)
[2023-02-16] MEDS: 0.9 % Sodium Chloride 1,000 ML 999 ML IV (10:39)
[2023-02-16 11:35] VITALS: BP 132/68; PULSE 67; RESP 18; O2SAT 98
[2023-02-16] MEDS: Magnesium Sulfate/H2O 2 GM/50 ML PIGGYBACK IV (12:52)
[2023-02-16 14:40] VITALS: BP 130/78; PULSE 86; RESP 20; TEMP 36.8; O2SAT 100
== END 2023-02-16 14:41 | disposition home or self-care (01) ==
PROVIDERS: Emergency Provider Emergency Medicine; PCP Internal Medicine
DX: G43.909 Migraine, unspecified, not intractable, without status migrainosus (principal); R11.2 Nausea with vomiting, unspecified; Z79.899 Other long term (current) drug therapy
CPT/HCPCS: 93005; 96361; 96365; 96366; 99284; 99285; J3475

== ENCOUNTER → 2023-02-16 09:45 | Outpatient (BNV) | payer OTHER, SELFPAY | PROVIDERS: PCP Internal Medicine; Visit Provider Radiology Diagnostic Radiology | DX: Z12.31 Encounter for screening mammogram for malignant neoplasm of breast (principal) | CPT/HCPCS: 77063; 77067 ==

== ENCOUNTER 2023-02-23 08:51 | Emergency (ER) | payer OTHER, SELFPAY ==
--- NOTE | ~2023-02-23 | XR_ITS ---
EXAMINATION: XR CHEST CLINICAL INFORMATION: Cough COMPARISON: Chest radiograph from 10/18/2022 TECHNIQUE: Frontal view of the chest was obtained. FINDINGS: No focal consolidation. No pneumothorax. Trachea is midline. Cardiac mediastinal silhouette is not enlarged. No large pleural effusion. Osseous structures are intact. Soft tissues are unremarkable. XR/XR chest 1V IMPRESSION: No acute cardiopulmonary process.
[2023-02-23 09:04] VITALS: BP 144/97; PULSE 84; RESP 18; O2SAT 96; BMI 32.4
--- NOTE | 2023-02-23 09:08 | ECG_ITS ---
Test Reason : dizziness Blood Pressure : / mmHG Vent. Rate : 080 BPM Atrial Rate : 080 BPM P-R Int : 134 ms QRS Dur : 072 ms QT Int : 386 ms P-R-T Axes : 035 000 045 degrees QTc Int : 445 ms Normal sinus rhythm Normal ECG When compared with ECG of 16-FEB-2023 11:21, No significant change was found Heart rate has increased Referred By: Generic ED Physician Electronically Signed By:PATEL LAWRENCE MD
--- NOTE | 2023-02-23 09:26 | PC.NURSE ---
Patient reports was seen here last week for a headache and was given medications that worked for a few days. Patient reports that headache have returned and are worse than before. Patient denies chest pain but reports sob and throat pain. Patient reports feeling congested and productive cough.
--- NOTE | 2023-02-23 09:39 | ED.GENADULT ---
HPI - General Adult General Chief complaint: General Medical Stated complaint: Dizziness, headache Time Seen by Provider: 02/23/23 09:30 Source: patient Mode of arrival: ambulatory Limitations: no limitations History of Present Illness HPI narrative: Patient is a 53-year-old female with a PMH of hypothyroidism, asthma, depression, herpes simplex, uterine myoma, and shoulder tendinitis presenting for myalgias, dizziness, cough, sore throat, chest pressure and headache x 3 days days not improving. Grandson home w/ similar sx. Denies visual disturbances fever, chills, confusion, weakness, numbness, tingling, gait changes, sob, palpitations, abdominal pain, nausea, vomiting, diarrhea, and urinary symptoms. NIHSS- 0 Related Data Home Medications Medication Instructions Recorded Confirmed lorazepam 0.5 mg tablet 0.5 mg PO BEDTIME PRN Anxiety 03/05/20 02/10/23 hydroxyzine HCl 25 mg tablet 25 - 50 mg PO TID PRN anxiety 06/08/21 02/10/23 omeprazole 20 mg capsule,delayed 20 mg PO DAILY 06/08/21 02/10/23 release valacyclovir 500 mg tablet 500 mg PO DAILY 01/04/22 02/10/23 Previous Rx's Medication Instructions Recorded albuterol sulfate 90 mcg/actuation 2 puff inhalation Q4-6H PRN 02/26/20 aerosol inhaler shortness of breath or wheezing #6.7 grams levothyroxine 137 mcg tablet 137 mcg PO DAILY 90 days #90 tabs 03/05/20 cholecalciferol (vitamin D3) 50 50 mcg PO DAILY #90 caps 11/29/22 mcg (2,000 unit) capsule celecoxib 200 mg capsule 200 mg PO BID #60 caps 01/30/23 zdlvwqhedd-xlzizzozuwzsw-qxlbzxsv 1 tab PO Q6H PRN pain (scale score 02/16/23 50 mg-325 mg-40 mg tablet 4-6) #10 tabs ondansetron 4 mg disintegrating 4 mg PO DAILY PRN nausea and 02/16/23 tablet vomiting 5 days #14 tabs ketorolac 10 mg tablet 10 mg PO TID PRN pain 5 days #15 02/23/23 tabs Allergies Allergy/AdvReac Type Severity Reaction Status Date / Time diphenhydramine Allergy Intermediate SEVERE Verified 02/15/23 08:12 [From BENADRYL] LETHARGY Review of Systems Review of Systems: Constitutional : No Weight loss, No Fever, No Chills, No Fatigue, No Malaise ENT/Mouth : No sore throat, No Rhinorrhea Eyes: No Eye Pain, No Swelling, No Redness Cardiovascular : + Chest Pain, No SOB, No Dyspnea on Exertion, No Orthopnea, No Edema, No Palpitations Respiratory : + Cough, No Sputum, No Wheezing Gastrointestinal : No Nausea, No Vomiting, No Diarrhea, No Constipation, No abdominal Pain Genitourinary : No Dysuria, No Urinary Frequency, No Hematuria, Musculoskeletal : No joint pain, No Myalgias, No Joint Swelling Skin : No Skin Lesions, No rash Neuro : + headache, + dizziness, No Weakness, No Numbness All other systems reviewed and are negative Yes all other systems are reviewed and are negative [facility] Past Medical History Attestation statement: The following information was validated with the patient. Source: old records reviewed and nursing notes reviewed Medical History Panic attacks Asthma Depression Vitamin D deficiency Hypothyroidism Thyroid activity decreased Surgical History Hx of cervical polypectomy Hx of lithotripsy Hx of gastric bypass Family History Family History Father Leukemia Cancer Mother Diabetes mellitus Hypertension Social History Social History Household Members: Spouse Housing: Apartment Alcohol intake: former Patient Tobacco Use Status: Never used Tobacco Smoked in Last 30 Days: No Use of substances other than those prescribed or required for medical reasons: No Advance Directives: No Advance Directives Information Provided: Yes Current occupational status: unemployed Sexual orientation: Straight/Heterosexual Gender identity: Female Physical Exam ED Vital Signs: Vital Signs - 24 hr 02/23/23 09:04 Pulse Rate 84 Respiratory Rate 18 Blood Pressure 144/97 H Pulse Oximetry 96 Oxygen Delivery Method Room Air BMI result Body Mass Index 32.4 Hypertensive on exam likely secondary to anxiety. Remainder of vitals stable. Appearance: Alert.? Oriented X3.? No acute distress.? Head: Normocephalic, atraumatic, no step-offs or deformities Eyes: Pupils equal, round and reactive to light.? ENT: Pharynx normal.? No mastoid tenderness. Neck: Normal inspection.? Neck supple.? CVS: Normal heart rate and rhythm.? Pulses normal.? Respiratory: No respiratory distress.? Breath sounds normal.? Abdomen: Soft and nontender.? Skin: Skin warm and dry.? Normal skin color.? Normal skin turgor.? Extremities: No lower extremity edema.? No calf ttp. 5/5 strength to bilateral upper and lower extremities Back: No midline tenderness, no C-spine tenderness, full range of motion, no CVA tenderness bilaterally Neuro: Oriented X 3.? No motor deficit.? No sensory deficit. CN 2-12 intact . Normal sxcsmo-cz-zawu, hnnf-bf-ctxc. Steady tandem gait normal coordination. Course Reevaluation(s) Reevaluation #1: CBC unremarkable. Chemistry no acute findings requiring intervention. Troponin negative, EKG nonischemic. COVID flu and strep negative. Chest x-ray no acute pulmonary process. Likely viral illness. Educated patient on diagnosis and treatment plan, answered all question, patient verbalizes understanding. At this time patient will be discharged home, advised to return with new or worsening symptoms. Educated on worrisome signs and symptoms and when to return. At this time I feel comfortable discharge home. Time: 11:16 Medications Administered Discontinued Medications Generic Name Dose Route Start Last Admin Trade Name Freq PRN Reason Stop Dose Admin Ketorolac Tromethamine 30 mg 02/23/23 09:54 02/23/23 10:09 Ketorolac Tromethamine 15 Mg/Ml Vial IM 02/23/23 09:55 30 mg ONCE ONE Administration Medical Decision Making Medical Decision Making [facility] Narrative: 53-year-old female presenting for dizziness, cough, and headache x 3 days Physical exam benign Likely viral illness and possible dehydration secondary to poor intake in the setting of viral respiratory infection vs. orthostatic hypotension vs. episodic vertigo. Unlikely arrhythmia, carotid stenosis, cerebellar stroke, hemorrhagic stroke, and intracranial tumor, pulmonary embolism, pneumonia, ACS, dissection. Plan - EKG, labs, serology, orthostatics Differential Diagnosis Differential Diagnoses: The differential diagnosis associated with the presentation includes Likely viral illness and possible dehydration secondary to poor intake in the setting of viral respiratory infection vs. orthostatic hypotension vs. episodic vertigo. Unlikely arrhythmia, carotid stenosis, cerebellar stroke, hemorrhagic stroke, and intracranial tumor, pulmonary embolism, pneumonia, ACS, dissection. Lab Data MDM Lab Attestation statement: I reviewed the patient's lab results. 02/23/23 09:59 02/23/23 09:59 Labs: Lab Results 02/23/23 02/23/23 02/23/23 Range/Units 09:59 10:04 10:05 WBC 7.6 (4.8-10.8) X10*3/uL RBC 4.45 (4.20-5.50) X10*6/uL Hgb 13.3 (12.0-16.0) g/dl Hct 41.1 (37.0-47.0) % MCV 92.4 (80.0-98.0) fL MCH 29.9 (27.0-33.0) pg MCHC 32.4 (31.0-35.0) g/dl RDW 13.4 (11.0-16.0) % Plt Count 160 (160-400) X10*3/uL MPV 10.8 (9.4-12.3) fL Immature Gran % (Auto) 0.3 (0.0-0.4) % Neut % (Auto) 69.1 (45-73) % Lymph % (Auto) 19.8 L (20-40) % [place] % (Auto) 7.5 (2-11) % Eos % (Auto) 2.9 (0-4) % Baso % (Auto) 0.4 (0-2) % Lymph # (Auto) 1.5 (1.2-4.9) X10*3/uL [place] # (Auto) 0.6 (0.1-1.2) X10*3/uL Eos # (Auto) 0.2 (0.0-0.4) X10*3/uL Baso # (Auto) 0.0 (0.0-0.2) X10*3/uL Abs Immat Gran (auto) 0.02 (0.00-0.03) X10*3/uL Absolute Neuts (auto) 5.2 (2.0-8.3) x10*3/uL Absolute Nucleated RBC 0.000 (0.0-0.012) X10*3/uL Nucleated RBC % (auto) 0.0 (0.0-0.2) /100WBC Sodium 142 (135-145) mmol/L Potassium 4.1 (3.3-5.1) mmol/L Chloride 105 (96-108) mmol/L Carbon Dioxide 29 (22-29) mmol/L Anion Gap 12 (12-20) BUN 11 (9-16) mg/dL Creatinine 0.73 (0.5-1.4) mg/dL Estim Creat Clear Calc 94.4 Estimated GFR > 60 Random Glucose 112 (60-115) mg/dL Calcium 9.6 (8.4-10.2) mg/dL Magnesium 2.0 (1.6-2.6) mg/dL Total Bilirubin 0.3 (0.0-1.0) mg/dL AST 17 (5-31) U/L ALT < 5 (0-31) U/L Alkaline Phosphatase 121 H (39-117) U/L Troponin I High Sens < 2.7 (<3.5-17.0) ng/L Total Protein 7.0 (6.5-8.0) g/dL Albumin 4.0 (3.5-5.0) g/dL COVID-19 (CRISSY) Negative (Negative) COVID-19 Clin Com See Note Influenza Type A (CHUCKIE) Negative (Negative) Influenza Type B (CHUCKIE) Negative (Negative) Influenza A & B Note See Note S. pyogenes GrpA CHUCKIE Negative (Negative) Independent Interpretation I performed an independent interpretation of an: EKG (Ventricular rate at 80, SC normal, QRS normal, QT/QTC normal. No ST elevations or inversions concerning for acute ischemic) and Plain X-Ray ( XR/XR chest 1V IMPRESSION: No acute cardiopulmonary process. ) Radiology Impression Discussion of test interpretation with radiology: I have reviewed the radiologist's reading. External Record Review External record reviewed: Inpatient record, Office record, Outpatient record, Prior outpatient labs, Prior outpatient radiology, Primary care record and Outside ED record Discharge Plan Discharge Clinical Impression: Viral illness, Cough, Headache Patient Disposition: Home, Self-Care Instructions: Acute Headache (ED), Viral Syndrome (ED), Acute Cough (ED) Additional Instructions: Take your medications as prescribed. If you were prescribed antibiotics today, it is important that you take your medication to their entirety, do not skip any doses, do not finish them early. Follow-up with your primary care provider this week. Return to the emergency department with new or worsening symptoms. Such as fevers, chills, chest pain, shortness of breath, nausea, vomiting, dizziness, headache, vision changes, lethargy In case of emergency call 911 Toradol has been sent to your pharmacy, you tolerated this well in the department. Please take this as prescribed do not take this with ibuprofen, or other NSAIDs such as celecoxib do not mix this with alcohol. Side effects of this medication including increased risk for bleeding and possible kidney injury. XR/XR chest 1V IMPRESSION: No acute cardiopulmonary process. Prescriptions: New ketorolac 10 mg tablet 10 mg PO TID PRN (Reason: pain) 5 Days Qty: 15 0RF No Action cholecalciferol (vitamin D3) 50 mcg (2,000 unit) capsule 50 mcg PO DAILY Qty: 90 2RF celecoxib 200 mg capsule 200 mg PO BID Qty: 60 0RF albuterol sulfate 90 mcg/actuation HFA aerosol inhaler 2 puff inhalation Q4-6H PRN (Reason: shortness of breath or wheezing) Qty: 6.7 0RF ondansetron 4 mg tablet,disintegrating 4 mg PO DAILY PRN (Reason: nausea and vomiting) 5 Days Qty: 14 0RF shyzayowkp-tgycqifdnoenk-hlza 50-325-40 mg tablet 1 tab PO Q6H PRN (Reason: pain (scale score 4-6)) Qty: 10 0RF lorazepam 0.5 mg tablet 0.5 mg PO BEDTIME PRN (Reason: Anxiety) levothyroxine 137 mcg tablet 137 mcg PO DAILY 90 Days Qty: 90 3RF omeprazole 20 mg capsule,delayed release(DR/EC) 20 mg PO DAILY hydroxyzine HCl 25 mg tablet 25 - 50 mg PO TID PRN (Reason: anxiety) valacyclovir 500 mg tablet 500 mg PO DAILY Referrals: Adriana Palencia MD [Primary Care Provider] - 2 days Stand Alone Forms: Work/School Release
[2023-02-23 10:05] LABS: MANUAL DIFF FLAG NO
[2023-02-23] MEDS: Ketorolac Tromethamine 15 MG/ML VIAL 30 MG IM (10:09)
[2023-02-23 10:10] LABS: Basophils Percent Auto 0.4 % (0-2); Eosinophils Absolute Auto 0.2 X10*3/uL (0.0-0.4); Eosinophils Percent Auto 2.9 % (0-4); Hematocrit 41.1 % (37.0-47.0); Hemoglobin 13.3 g/dl (12.0-16.0); Imm Gran Abs Auto 0.02 X10*3/uL (0.00-0.03); Imm Gran Pct Auto 0.3 % (0.0-0.4); Lymphocytes Absolute Auto 1.5 X10*3/uL (1.2-4.9); Lymphocytes Percent Auto 19.8 % (20-40); Mean Corpuscular HGB Conc 32.4 g/dl (31.0-35.0); Mean Corpuscular Hemoglobin 29.9 pg (27.0-33.0); Mean Corpuscular Volume 92.4 fL (80.0-98.0); Mean Platelet Volume 10.8 fL (9.4-12.3); Monocytes Absolute Auto 0.6 X10*3/uL (0.1-1.2); Monocytes Percent Auto 7.5 % (2-11); Neutrophils Absolute Auto 5.2 x10*3/uL (2.0-8.3); Neutrophils Percent Auto 69.1 % (45-73); Platelet Count 160 X10*3/uL (160-400); Red Blood Count 4.45 X10*6/uL (4.20-5.50); Red Cell Distribution Width 13.4 % (11.0-16.0); White Blood Count 7.6 X10*3/uL (4.8-10.8)
[2023-02-23 10:21] LABS: IDNOW Serial# 58CA691E; Strep A Nucleic Acid Negative (Negative)
[2023-02-23 10:22] LABS: Alanine Aminotransferase < 5 U/L (0-31); Alkaline Phosphatase 121 U/L (39-117); Anion Gap 12 (12-20); Aspartate Amino Transferase 17 U/L (5-31); Bilirubin Total 0.3 mg/dL (0.0-1.0); Blood Urea Nitrogen 11 mg/dL (9-16); Calcium 9.6 mg/dL (8.4-10.2); Carbon Dioxide 29 mmol/L (22-29); Chloride 105 mmol/L (96-108); Creatinine Clr Calc Pharmacy 94.4; Estimated Glomerular Filt Rate > 60; Glucose Random 112 mg/dL (60-115); Potassium 4.1 mmol/L (3.3-5.1); Sodium 142 mmol/L (135-145)
[2023-02-23 10:25] LABS: COVID-19 Test Negative (Negative); IDNOW Serial# 6674DD1D
[2023-02-23 10:36] LABS: IDNOW Serial# 9DB6401D; Influenza A Negative (Negative); Influenza B2 Negative (Negative)
[2023-02-23 10:39] LABS: Troponin-I High Sensitivity < 2.7 ng/L (<3.5-17.0)
[2023-02-23 11:32] VITALS: BP 126/61; PULSE 63; PULSE 64; RESP 16; O2SAT 96
[2023-02-23 11:33] VITALS: BP 135/88; PULSE 73
[2023-02-23 11:34] VITALS: BP 147/75; PULSE 70
== END 2023-02-23 11:45 | disposition home or self-care (01) ==
PROVIDERS: Physician Assistant; Emergency Provider Student in an Organized Health Care Education/Training Program; PCP Internal Medicine
DX: B34.9 Viral infection, unspecified (principal); R05.9 Cough, unspecified; R51.9 Headache, unspecified; J02.9 Acute pharyngitis, unspecified; Z11.52 Encounter for screening for COVID-19
CPT/HCPCS: 36415; 71045; 80053; 83735; 84484; 85025; 87502; 87635; 87651; 93005; 96372; 99284; J1885

== ENCOUNTER 2023-03-06 07:56 | Outpatient (AMB) | payer OTHER, SELFPAY ==
[2023-03-06 08:02] VITALS: PULSE 74; RESP 12; O2SAT 97; BMI 32.6
--- NOTE | 2023-03-06 08:02 | A.OFFVIS_ITS ---
Intake Vital Signs 03/06/23 08:02 Height 5 ft 4 in Weight 190 lb BMI 32.6 Blood Pressure Location Rt brachial Position Sitting Respiration 12 Pulse 74 Pulse Source Pulse Oximeter Pulse Oximetry (%) 97 Oxygen Delivery Method Room Air Intake Visit Reasons: Left dx interscalene block Allergies diphenhydramine [From BENADRYL] Allergy (Intermediate, Verified 03/07/23 14:06) SEVERE LETHARGY HPI Left dx interscalene block HPI Details 53-year-old female who presents today to the office for a left diagnostic interscalene block. Denies any recent cough, cold, infection, fever or other significant changes in medical history since last office visit. Past procedures: 02/10/23: Left diagnostic suprascapular nerve block, US guided: No relief. PFS Medical History Panic attacks Asthma Depression Vitamin D deficiency Hypothyroidism Thyroid activity decreased Surgical History Hx of cervical polypectomy Hx of lithotripsy Hx of gastric bypass Family History Father Leukemia Cancer Mother Diabetes mellitus Hypertension Household Members: Spouse Housing: Apartment Alcohol intake: former Patient Tobacco Use Status: Never used Tobacco Current occupational status: unemployed Sexual orientation: Straight/Heterosexual Gender identity: Female Female Reproductive History Menstrual Age of Menarche: 12 Review of Systems Const All systems reviewed & are unremarkable except as noted in HPI and below Physical Exam Vital Signs: Last Vital Signs Pulse 74 03/06/23 08:02 Resp 12 03/06/23 08:02 Pulse Ox 97 03/06/23 08:02 Oxygen Delivery Method Room Air 03/06/23 08:02 BMI result Body Mass Index 32.6 General: Appears afebrile. Alert and oriented. Mood and affect appropriate. Follows and participates in conversation appropriately. Respiratory effort is unlabored. Able to transition from sit to stand unassisted. Ambulates with bilaterally normal heel strike and toe off. Office Procedures Nerve Block Details: Left diagnostic interscalene nerve block, ultrasound guided After obtaining written consent, pre-procedure blood pressure and heart rate were stable and recorded in the nursing record. The patient was placed supine on the table. The neck and the interscalene grove were widely prepped with chloraprep, allowed to dry and sterilely draped. Using ultrasound, the appropriate landmarks including the interscalene groove and subclavian artery and the C5-6 nerve roots were identified. A 21 gauge 100 mm echostim needle was advanced under sonographic guidance to the interscalene groove and the C5-6 nerve roots. Aspiration was negative for heme and air. 8 cc of lidocaine 1% and bupivacaine 0.25% was injected in the interscalene groove. The needle was removed, skin cleansed and a sterile bandage was applied. The patient tolerated the procedure well and no complications were encountered. Following the procedure the patient's vital signs was stable. The patient was discharged home in good condition with post-procedural instructions. Time Out: Immediately prior to the procedure, the following was verbally confirmed that there is a signed consent form and that the correct patient, planned procedure, site and side are consistent with documentation and that necessary equipment and/or blood products are available prior to the start of the case. Complications: none EBL: <1 cc Note: An ultrasound image of the injection was taken and stored in the permanent record. 49514 - Interscalene Brachial Plexus Procedure code (CPT) selection complete Results Reviewed Results Reviewed: No imaging is available for review. Assessment & Plan Assessment & Plan (1) Left shoulder pain: Code(s): M25.512 - Pain in left shoulder Plan Patient is status post left diagnostic interscalene block, ultrasound guided. Patient tolerated procedure well and was discharged home in stable condition with discharge instructions. All questions were answered. We will follow-up in two weeks via telephone or in clinic to assess response to therapy. A follow-up appointment was made during today's visit. Scribed for Dr. Cid by Praful Brian, medical office specialist, on 03/06/2023. I, Dr. Cid, have personally reviewed and agree with the information entered by the scribe. Coding Level of Care Code Procedure Only Diagnoses Left shoulder pain M25.512 CPT Codes Nerve Block - Nerve Block 2: 05180 - Interscalene Brachial Plexus ([id number])
== END 2023-03-06 08:34 | disposition home or self-care (01) ==
PROVIDERS: PCP Internal Medicine; Visit Provider Internal Medicine
DX: M25.512 Pain in left shoulder (principal)
CPT/HCPCS: 64415; 76942

== ENCOUNTER → 2023-03-06 07:56 | Outpatient (BNVA) | payer OTHER, SELFPAY | PROVIDERS: PCP Internal Medicine; Visit Provider Internal Medicine | DX: M25.512 Pain in left shoulder (principal) | CPT/HCPCS: 64415; 76942; J0665 ==

== ENCOUNTER → 2023-03-07 14:05 | Outpatient (BNVA) | payer OTHER, SELFPAY | PROVIDERS: PCP Internal Medicine; Visit Provider Registered Nurse Emergency ==

== ENCOUNTER 2023-03-07 14:26 | Outpatient (AMB) | payer OTHER, SELFPAY ==
--- NOTE | 2023-03-07 14:06 | MHC.OFFVIS ---
Intake Intake Visit Reasons: s/p left Dx interscalene block/confirmed Allergies diphenhydramine [From BENADRYL] Allergy (Intermediate, Verified 03/07/23 14:06) SEVERE LETHARGY HPI HPI Comments History of Present Illness Details Televisit completed today for follow up left diagnostic interscalene nerve block with local anesthetic. Patient reports she tolerated the procedure well, though did find the actual injection very uncomfortable. She reports greater than 90% relief of pain with improvement in function and mobility for 6 hours after the injection. She would like to proceed with Sprint PNS. Prior: Sudha presents back to the office today for follow up 1 week s/p diagnostic left suprascapular nerve block. Patient reports that she did not receive any relief after the injection. She is still suffering with significant left shoulder pain, worse with abduction and extension. Prior: Sudha is a very pleasant 53 year old American speaking patient who presents to the office today accompanied by her [employer], Porfirio, for evaluation and management of her chronic left shoulder pain. Certified, Hospital provided, spanish interpreter/translator offered, patient comfortable utilizing her [employer]. Patient reports she has been suffering with left shoulder pain for approximately 7 months. She denies inciting injury. She is being followed by Orthopedics who ultimately referred her here for evaluation, was told not a candidate for surgical intervention. She has tried nonsteroidal anti-inflammatory medications which do not provide her any relief, she tried and failed physical therapy after 2 weeks. She has received 3 steroid injections which also provided no relief. She reports pain is constant, currently rated as 10/10, worse with movement particularly any type of reaching movements. She denies numbness, tingling or weakness of the left upper extremity. Endorses pain to the entire shoulder ending above the elbow. In terms of muscle damage condition is described as sharp, aching, throbbing, burning and cramping. Pain is negatively impacting patient enjoyment of life, general activity, mood, normal work, recreational activities, relationships with people and sleep. [facility] Medical History Panic attacks Asthma Depression Vitamin D deficiency Hypothyroidism Thyroid activity decreased Surgical History Hx of cervical polypectomy Hx of lithotripsy Hx of gastric bypass Family History Father Leukemia Cancer Mother Diabetes mellitus Hypertension Household Members: Spouse Housing: Apartment Alcohol intake: former Patient Tobacco Use Status: Never used Tobacco Current occupational status: unemployed Sexual orientation: Straight/Heterosexual Gender identity: Female Female Reproductive History Menstrual Age of Menarche: 12 Review of Systems Const All systems reviewed & are unremarkable except as noted in HPI and below Assessment & Plan Assessment & Plan (1) Left shoulder pain: Code(s): M25.512 - Pain in left shoulder (2) Capsulitis of left shoulder: Code(s): M77.8 - Other enthesopathies, not elsewhere classified (3) Left shoulder tendinitis: Code(s): M77.8 - Other enthesopathies, not elsewhere classified Plan Televisit completed today for follow up diagnostic US guided diagnostic interscalene nerve block with local anesthetic. Patient reports greater than 90% relief of pain with improvement in function and mobility. Patient has exhausted conservative therapy including NSAIDs, physical therapy and steroid injections. Discussed options for treatment including diagnostic interventional testing, steroid injections, peripheral nerve stimulation with Sprint, RFA and more permanent neuromodulation. Given positive results of the diagnostic injection, will schedule for left interscalene sprint PNS with local anesthetic. Patient nervous about being able to remain still for the procedure, will sent po ativan to take prior to the appointment. All questions and concerns have been answered and patient agrees with the plan. Follow up after Sprint, sooner if needed. Telehealth Telehealth Location of provider rendering services: practice address Location of patient: address on file Patient Identification confirmed using: Name, : Yes Telehealth method: voice only Patient verbally consented to treatment: Yes Patient verbally consented to billing insurance company: Yes Patient informed of any privacy concerns related to visit: Yes Coding Level of Care Code Tele Est Pt Level 3 (17908) Diagnoses Left shoulder pain M25.512 Capsulitis of left shoulder M77.8 Left shoulder tendinitis M77.8
== END 2023-03-07 14:27 | disposition home or self-care (01) ==
PROVIDERS: PCP Internal Medicine; Visit Provider Registered Nurse Emergency
DX: M25.512 Pain in left shoulder (principal); M77.8 Other enthesopathies, not elsewhere classified
CPT/HCPCS: 99441

== ENCOUNTER 2023-05-11 06:15 | Outpatient (REF) | payer OTHER, SELFPAY | END 2023-05-11 06:16 | disposition home or self-care (01) | LOC: CF 06:15 | PROVIDERS: Visit Provider Internal Medicine | DX: M25.512 Pain in left shoulder (principal); G89.29 Other chronic pain | CPT/HCPCS: 64555; C1778 ==

== ENCOUNTER 2023-05-11 09:11 | Outpatient (AMB) | payer OTHER, SELFPAY ==
--- NOTE | 2023-05-11 09:16 | MHC.OFFVIS ---
Intake Vital Signs 05/11/23 09:23 05/11/23 10:47 Height 5 ft 4 in BP 88/66 L 90/58 L Blood Pressure Location Lt brachial Rt brachial Position Sitting Sitting Pulse 74 62 Pulse Source Doppler Doppler Pulse Oximetry (%) 98 98 Oxygen Delivery Method Room Air Intake Visit Reasons: Left interscalene Sprint Preschool Principal Required: Yes Preschool Principal Name: Lisa Colon Allergies diphenhydramine [From BENADRYL] Allergy (Intermediate, Verified 03/07/23 14:06) SEVERE LETHARGY HPI Left interscalene Sprint HPI Details Patient presents for scheduled procedure. Denies any recent cough, cold, infection, fever or other significant changes in medical history since last office visit. [facility] Medical History Panic attacks Asthma Depression Vitamin D deficiency Hypothyroidism Thyroid activity decreased Surgical History Hx of cervical polypectomy Hx of lithotripsy Hx of gastric bypass Family History Father Leukemia Cancer Mother Diabetes mellitus Hypertension Social History Household Members: Spouse Housing: Apartment Alcohol intake: former Comment: medicated with ketorolac and po tylenol Patient Tobacco Use Status: Never used Tobacco Current occupational status: unemployed Sexual orientation: Straight/Heterosexual Gender identity: Female Female Reproductive History Menstrual Age of Menarche: 12 Physical Exam Vital Signs: Last Vital Signs Pulse 62 05/11/23 10:47 BP 90/58 L 05/11/23 10:47 Pulse Ox 98 05/11/23 10:47 Oxygen Delivery Method Room Air 05/11/23 09:23 Office Procedures Details: Peripheral Nerve Stimulation Temporary Lead Placement, Ultrasound-Guided, Brachial Plexus in the Interscalene Groove, Left ? After the risks, benefits and alternatives were discussed with the patient and informed consent was obtained, patient was placed in the rat trapper position and padded to foster comfort. Appropriate skin landmarks were identified, and pertinent vascular structures were located. The skin overlying the needle entry site was prepped and draped in sterile fashion. Ultrasound was used to identify the subclavian artery. After identifying and marking the intended target, the skin around the planned entry point and the subcutaneous tissues were injected with local anesthetic. An introducer needle and stimulating probe were assembled, inserted and advanced towards taking care to maintain the proper depth of insertion as the introducer was advanced under ultrasound guidance. The introducer needle was delivered to a location in proximity to the nerves taking care not to puncture the nerve roots. Multiple stimulation parameters were used to deliver stimulation to the brachial plexus in concert with stimulating at multiple positions around the nerves. Nerve target acquisition was confirmed noting generation of sensory and mild motor effects (paresthesia, muscle tension, etc) in the shoulder and arm; corresponding to the distribution of the targetted nerve. Various electrical parameter combinations were tested, and the lead location was adjusted (physically relocated under ultrasound guidance) until the patient indicated shoulder paresthesia and tension overlapping the distribution of the patient?s typical region of pain. The stimulating probe was removed from the introducer and a percutaneous lead was guided through the needle and delivered to a location in similar proximity to the nerves. Final location was verified with electrical stimulation and documented. The introducer needle was removed, and the exposed end of the percutaneous lead was attached to an external stimulator unit. Various electrical parameter combinations were again tested until the patient indicated paresthesia and muscle tension overlapping the distribution of the patient?s typical region of pain. After confirming that lead impedance was in the normal range, the external unit was detached, the needle was removed, and the lead was anchored at the skin. The lead was threaded into the connector block and electrical continuity and desired patient response was confirmed. The connector block was attached to the external stimulator unit. The site was covered with a sterile occlusive dressing. A final ultrasound image was taken to document final placement. The patient was observed for stability of vital signs and comfort. Sprint PNS Device: Sprint PNS Device [id number] Percutaneous Peripheral Neuroelectrode Procedure: 86988 - Percutaneous Peripheral Neuroelectrode Procedure code (CPT) selection complete Office Meds lidocaine (PF) 50 mg/5 mL (1 %) injection syringe Performing Provider: Juan Luis iCd MD [place] [facility] [place] [facility] Administered by: Laura Alegria LPN on 05/11/23 10:39 Dose Route Admin Location Dispensed Lot Number Expiration Date [facility] Machine Feed Operator 5 mL subcut 5 mL [id number] 10/15/25 00336-708-96 [employer] Assessment & Plan Assessment & Plan (1) Left shoulder pain: Code(s): M25.512 - Pain in left shoulder Qualifiers: Chronicity: chronic Qualified Code(s): M25.512 - Pain in left shoulder; G89.29 - Other chronic pain Plan Patient is status post left brachial plexus stimulator placement for intractable left shoulder pain. Patient tolerated procedure well and was discharged home in stable condition with discharge instructions. All questions were answered. We will follow-up via telephone or in clinic to assess response to therapy. A follow-up appointment was made during today's visit. Orders: Orders AMB Sprint PNS Today M25.512 - Pain in left shoulder, M77.8 - Other enthesopathies, not elsewhere classified Juan Luis Cid MD [place] guidance in treatment room Today M77.8 - Other enthesopathies, not elsewhere classified Melba Shah APRN, APPLIED PSYCHOLOGY CHAIR Coding Level of Care Code Procedure Only Diagnoses Chronic left shoulder pain M25.512; G89.29 Chronicity: chronic CPT Codes Sprint PNS - Sprint PNS Device: Sprint PNS Device ([id number]) Sprint PNS - SPRINT: 97070 - Percutaneous Peripheral Neuroelectrode ([id number]) Implantable Device Implantable Device Implantable Devices Qty Machine Feed Operator Implant Date Expiration Date Analgesic PENS system 1 SPR [email or web address] 05/11/23 10/14/24
[2023-05-11 09:23] VITALS: BP 88/66; PULSE 74; O2SAT 98
[2023-05-11 10:47] VITALS: BP 90/58; PULSE 62; O2SAT 98
== END 2023-05-11 10:34 | disposition home or self-care (01) ==
LOC: HO.PMCPRC 09:11
PROVIDERS: PCP Internal Medicine; Visit Provider Internal Medicine
DX: M25.512 Pain in left shoulder (principal); G89.29 Other chronic pain
CPT/HCPCS: 64555

== ENCOUNTER 2023-05-19 09:50 | Outpatient (AMB) | payer OTHER, SELFPAY ==
--- NOTE | 2023-05-19 09:53 | A.OFFVIS_ITS ---
Intake Vital Signs 05/19/23 09:55 Height 5 ft 4 in Weight 187 lb BMI 32.1 BP 111/58 L Blood Pressure Location Lt brachial Position Sitting Respiration 12 Pulse 80 Pulse Source Pulse Oximeter Pulse Oximetry (%) 96 Oxygen Delivery Method Room Air Intake Visit Reasons: Follow Up/Neck Pain post procedure Allergies diphenhydramine [From BENADRYL] Allergy (Intermediate, Verified 05/19/23 09:56) SEVERE LETHARGY Medication List - Last Reconciled 05/19/23 by Laura Alegria LPN albuterol sulfate 90 mcg/actuation 2 puffs inhalation Q4-6H PRN albuterol sulfate 90 mcg/actuation 2 inhalations inhalation Q4-6H PRN benzonatate 100 mg PO BID PRN lzmvifbaqm-tcacabuqqeeac-evro 50-325-40 mg 1 tab PO Q6H PRN celecoxib 200 mg PO BID cholecalciferol (vitamin D3) 50 mcg PO DAILY hydroxyzine HCl 25 - 50 mg PO TID PRN ketorolac 10 mg PO TID PRN 5 days levothyroxine 137 mcg PO DAILY 90 days lorazepam 0.5 mg PO BEDTIME PRN omeprazole 20 mg PO DAILY ondansetron 4 mg PO DAILY PRN 5 days prednisone 40 mg (2 x 20 mg) PO DAILY 5 days valacyclovir 500 mg PO DAILY HPI Follow Up/Neck Pain post procedure HPI Details 53-year-old female who presents today to the office for a follow-up neck pain. She states that she had significant relief from the device until 05/17/23. She reports feeling a constant pressure sensation in her neck region that radiates down to her back. She denies any pressure sensation in her shoulder region. Once a day she has only been getting stimulation in her neck so she increased the intensity but then that caused her neck pain and headaches. Past procedures: 05/11/23: Peripheral Nerve Stimulation Te mporary Lead Placement, Ultrasound- Guided, Brachial Plexus in the Interscalene Groove, Left: % relief. 03/06/23: Left diagnostic interscalene n erve block, ultrasound guided: % relief. 02/10/23: Left diagnostic suprascapular nerve block, US guided: No relief. [facility] Medical History Panic attacks Asthma Depression Vitamin D deficiency Hypothyroidism Thyroid activity decreased Surgical History Hx of cervical polypectomy Hx of lithotripsy Hx of gastric bypass Family History Father Leukemia Cancer Mother Diabetes mellitus Hypertension Social History Household Members: Spouse Housing: Apartment Alcohol intake: former Comment: medicated with ketorolac and po tylenol Patient Tobacco Use Status: Never used Tobacco Current occupational status: unemployed Sexual orientation: Straight/Heterosexual Gender identity: Female Female Reproductive History Menstrual Age of Menarche: 12 Review of Systems Const All systems reviewed & are unremarkable except as noted in HPI and below Physical Exam Vital Signs: Last Vital Signs Pulse 80 05/19/23 09:55 Resp 12 05/19/23 09:55 BP 111/58 L 05/19/23 09:55 Pulse Ox 96 05/19/23 09:55 Oxygen Delivery Method Room Air 05/19/23 09:55 BMI result Body Mass Index 32.1 General: Appears afebrile. Alert and oriented. Mood and affect appropriate. Follows and participates in conversation appropriately. Respiratory effort is unlabored. Able to transition from sit to stand unassisted. Ambulates with bilaterally normal heel strike and toe off. Ultrasound examination revealed dislodgement of the lead with lead tip in the muscle, roughly 1-2 inches from the target nerve roots. Results Reviewed Results Reviewed: No imaging is available for review. Assessment & Plan Assessment & Plan (1) Left shoulder pain: Code(s): M25.512 - Pain in left shoulder Qualifiers: Chronicity: chronic Qualified Code(s): M25.512 - Pain in left shoulder; G89.29 - Other chronic pain Plan Interscalene stimulator was removed due to dislodgement. It was effective during the time that it was in place, but we removed it because it was causing her the neck pain, due to muscular stimulation after dislodgement. We will plan to reinsert a peripheral nerve stimulator at the left suprascapular nerve instead to minimize risk of future dislodgement. Patient is in agreement with the plan. Scribed for Dr. Cid by Praful Brian, director biomedical engineering, on 05/19/2023. I, Dr. Cid, have personally reviewed and agree with the information entered by the scribe. Coding Level of Care Code Est Pt Level 3 (26334) Diagnoses Chronic left shoulder pain M25.512; G89.29 Chronicity: chronic
[2023-05-19 09:55] VITALS: BP 111/58; PULSE 80; RESP 12; O2SAT 96; BMI 32.1
== END 2023-05-19 10:21 | disposition home or self-care (01) ==
PROVIDERS: PCP Internal Medicine; Visit Provider Internal Medicine
DX: M25.512 Pain in left shoulder (principal); G89.29 Other chronic pain
CPT/HCPCS: 99024

== ENCOUNTER → 2023-05-19 09:50 | Outpatient (BNVA) | payer OTHER, SELFPAY | PROVIDERS: PCP Internal Medicine; Visit Provider Internal Medicine | DX: M25.512 Pain in left shoulder (principal); G89.29 Other chronic pain | CPT/HCPCS: 99212 ==

== ENCOUNTER 2023-06-01 06:02 | Outpatient (REF) | payer OTHER, SELFPAY | END 2023-06-01 06:03 | disposition home or self-care (01) | LOC: CF 06:02 | PROVIDERS: Visit Provider Internal Medicine | DX: M25.512 Pain in left shoulder (principal) | CPT/HCPCS: 64555; C1778 ==

== ENCOUNTER 2023-06-01 10:16 | Outpatient (AMB) | payer OTHER, SELFPAY ==
--- NOTE | 2023-06-01 10:15 | A.OFFVIS_ITS ---
Intake Vital Signs 06/01/23 10:21 06/01/23 11:03 Height 5 ft 4 in 5 ft 4 in Weight 184 lb 184 lb BMI 31.6 31.6 BP 110/70 132/68 Blood Pressure Location Rt brachial Rt brachial Position Sitting Sitting Respiration 16 14 Pulse 84 62 Pulse Source Pulse Oximeter Pulse Oximeter Pulse Oximetry (%) 100 98 Oxygen Delivery Method Room Air Room Air Comment Pre-Op Post-Op Intake Visit Reasons: Left suprascapular Sprint Allergies diphenhydramine [From BENADRYL] Allergy (Intermediate, Verified 06/01/23 10:22) SEVERE LETHARGY HPI Left suprascapular Sprint HPI Details Patient presents for scheduled procedure. Denies any recent cough, cold, infection, fever or other significant changes in medical history since last office visit. PFSH Medical History Panic attacks Asthma Depression Vitamin D deficiency Hypothyroidism Thyroid activity decreased Surgical History Hx of cervical polypectomy Hx of lithotripsy Hx of gastric bypass Family History Father Leukemia Cancer Mother Diabetes mellitus Hypertension Social History Household Members: Spouse Housing: Apartment Alcohol intake: former Comment: medicated with ketorolac and po tylenol Patient Tobacco Use Status: Never used Tobacco Current occupational status: unemployed Sexual orientation: Straight/Heterosexual Gender identity: Female Female Reproductive History Menstrual Age of Menarche: 12 Physical Exam Vital Signs: Last Vital Signs Pulse 62 06/01/23 11:03 Resp 14 06/01/23 11:03 BP 132/68 06/01/23 11:03 Pulse Ox 98 06/01/23 11:03 Oxygen Delivery Method Room Air 06/01/23 11:03 BMI result Body Mass Index 31.6 Office Procedures Details: Peripheral Nerve Stimulation Temporary Lead Placement, Ultrasound-Guided, Suprascapular Nerve, Left ? After the risks, benefits and alternatives were discussed with the patient and informed consent was obtained, patient was placed in the sitting position and padded to foster comfort. Appropriate skin and bony landmarks were identified using ultrasound, including the left suprascapular notch. The skin overlying the needle entry site was prepped and draped in sterile fashion. After identifying and marking the intended target along the course of the suprascapular nerve, the skin around the planned entry point and the subcutaneous tissues were injected with local anesthetic. An introducer needle and stimulating probe were assembled, inserted and advanced along the intended course of the suprascapular nerve, taking care to maintain the proper depth of insertion as the introducer was advanced under ultrasound guidance. Bony contact was achieved with the scapula and maintained throughout. The introducer needle was delivered to a location in proximity to the nerve. Multiple stimulation parameters were used to deliver stimulation to the suprascapular nerve in concert with stimulating at multiple positions around the nerve. Nerve target acquisition was confirmed noting generation of sensory and mild motor effects (paresthesia, muscle tension, etc) in the shoulder and proximal arm; corresponding to the distribution of the suprascapular nerve. Various electrical parameter combinations were tested, and the lead location was adjusted (physically relocated under image guidance) until the patient indicated shoulder paresthesia and tension overlapping the distribution of the patient?s typical region of pain. The stimulating probe was removed from the introducer and a percutaneous lead was guided through the needle and delivered to a location in similar proximity to the nerve. Final location was verified with electrical stimulation and documented. The introducer needle was removed, and the exposed end of the percutaneous lead was attached to an external stimulator unit. Various electrical parameter combinations were again tested until the patient indicated paresthesia and muscle tension overlapping the distribution of the patient?s typical region of pain. After confirming that lead impedance was in the normal range, the external unit was detached, the needle was removed, and the lead was anchored at the skin. The needle entry site was occluded with dermabond. The lead was threaded into the connector block and electrical continuity and desired patient response was confirmed. The connector block was attached to the external stimulator unit. The site was covered with a sterile occlusive dressing.? A final image was taken to document final placement. The patient was observed for stability of vital signs and comfort. Sprint PNS Device: Sprint PNS Device [id number] Percutaneous Peripheral Neuroelectrode Procedure: 10704 - Percutaneous Peripheral Neuroelectrode Procedure code (CPT) selection complete Office Meds lidocaine (PF) 50 mg/5 mL (1 %) injection syringe Performing Provider: Melba Shah APRN, MINI Performing Location: [facility] Administered by: Laura Alegria LPN on 06/01/23 10:40 Dose Route Admin Location Dispensed Lot Number Expiration Date [facility] [place] Refrigerating Engineer Head 5 mL subcut 5 mL Assessment & Plan Assessment & Plan (1) Left shoulder pain: Code(s): M25.512 - Pain in left shoulder Qualifiers: Chronicity: chronic Qualified Code(s): M25.512 - Pain in left shoulder; G89.29 - Other chronic pain Plan Patient is status post left suprascapular nerve stimulator replacement from the interscalene site due to inadvertent displacement. Patient tolerated procedure well and was discharged home in stable condition with discharge instructions. All questions were answered. We will follow-up via telephone or in clinic to assess response to therapy. A follow-up appointment was made during today's visit. Orders: Orders AMB Sprint PNS Today M25.512 - Pain in left shoulder Coding Level of Care Code Procedure Only Diagnoses Chronic left shoulder pain M25.512; G89.29 Chronicity: chronic CPT Codes Sprint PNS - Sprint PNS Device: Sprint PNS Device ([id number]) Sprint PNS - SPRINT: 31088 - Percutaneous Peripheral Neuroelectrode ([id number]) Implantable Device Implantable Device Implantable Devices [employer]ty [employer]riger[employer] Head Implant Date Expiration Date Analgesic PENS system 1 [employer] 06/01/23 08/04/24
[2023-06-01 10:21] VITALS: BP 110/70; PULSE 84; RESP 16; O2SAT 100; BMI 31.6
[2023-06-01 11:03] VITALS: BP 132/68; PULSE 62; RESP 14; O2SAT 98; BMI 31.6
== END 2023-06-01 10:56 | disposition home or self-care (01) ==
LOC: HO.PMCPRC 10:16
PROVIDERS: PCP Internal Medicine; Visit Provider Internal Medicine
DX: M25.512 Pain in left shoulder (principal); G89.29 Other chronic pain
CPT/HCPCS: 64555

== ENCOUNTER 2023-06-09 09:55 | Outpatient (AMB) | payer OTHER, SELFPAY ==
--- NOTE | 2023-06-09 10:11 | A.OFFVIS_ITS ---
Intake Vital Signs 06/09/23 10:12 Height 5 ft 4 in Weight 188 lb BMI 32.3 BP 130/82 Blood Pressure Location Lt brachial Position Sitting Respiration 12 Pulse 66 Pulse Source Pulse Oximeter Pulse Oximetry (%) 96 Oxygen Delivery Method Room Air Intake Visit Reasons: s/p left suprascapular Sprint/confirmed Allergies diphenhydramine [From BENADRYL] Allergy (Intermediate, Verified 06/09/23 10:16) SEVERE LETHARGY Medication List - Last Reconciled 06/09/23 by Laura Alegria LPN albuterol sulfate 90 mcg/actuation 2 puffs inhalation Q4-6H PRN albuterol sulfate 90 mcg/actuation 2 inhalations inhalation Q4-6H PRN baclofen 10 mg PO TID benzonatate 100 mg PO BID PRN flizshwgmg-fvmzmwotgkzys-rrtq 50-325-40 mg 1 tab PO Q6H PRN celecoxib 200 mg PO BID cholecalciferol (vitamin D3) 50 mcg PO DAILY diclofenac sodium 1% topical hydroxyzine HCl 25 - 50 mg PO TID PRN ketorolac 10 mg PO TID PRN 5 days levothyroxine 137 mcg PO DAILY 90 days lorazepam 0.5 mg PO BEDTIME PRN omeprazole 20 mg PO DAILY ondansetron 4 mg PO DAILY PRN 5 days prednisone 40 mg (2 x 20 mg) PO DAILY 5 days valacyclovir 500 mg PO DAILY HPI s/p left suprascapular Sprint/confirmed HPI Details 53-year-old female who presents today to the office for a status post left suprascapular sprint. The patient reports no relief as yet from the procedure. She states that her pain did not change after the procedure. She describes her pain as on and off in nature. She reports worsening of the pain when trying to lift her arm. The patient endorses the appropriate paresthesia sensation from th e device. Her changed the dressings at home. Past procedures: 06/01/2023: Peripheral Nerve Stimulation Temporary Lead Placement, Ultrasound- Guided, Suprascapular Nerve, Left: No relief yet. 05/11/23: Peripheral Nerve Stimulation Te mporary Lead Placement, Ultrasound- Guided, Brachial Plexus in the Interscalene Groove, Left: Lead displaced prematurely 03/06/23: Left diagnostic interscalene n erve block, ultrasound guided: % relief. 02/10/23: Left diagnostic suprascapular nerve block, US guided: No relief. PFSH Medical History Panic attacks Asthma Depression Vitamin D deficiency Hypothyroidism Thyroid activity decreased Surgical History Hx of cervical polypectomy Hx of lithotripsy Hx of gastric bypass Family History Father Leukemia Cancer Mother Diabetes mellitus Hypertension Social History Household Members: Spouse Housing: Apartment Alcohol intake: former Comment: medicated with ketorolac and po tylenol Patient Tobacco Use Status: Never used Tobacco Current occupational status: unemployed Sexual orientation: Straight/Heterosexual Gender identity: Female Female Reproductive History Menstrual Age of Menarche: 12 Review of Systems Const All systems reviewed & are unremarkable except as noted in HPI and below Physical Exam Vital Signs: Last Vital Signs Pulse 66 06/09/23 10:12 Resp 12 06/09/23 10:12 BP 130/82 06/09/23 10:12 Pulse Ox 96 06/09/23 10:12 Oxygen Delivery Method Room Air 06/09/23 10:12 BMI result Body Mass Index 32.3 General: Appears afebrile. Alert and oriented. Mood and affect appropriate. Follows and participates in conversation appropriately. Respiratory effort is unlabored. Able to transition from sit to stand unassisted. Ambulates with bilaterally normal heel strike and toe off. The site was clean, dry, and intact. Results Reviewed Results Reviewed: No imaging is available for review. Assessment & Plan Assessment & Plan (1) Left shoulder pain: Code(s): M25.512 - Pain in left shoulder Qualifiers: Chronicity: chronic Qualified Code(s): M25.512 - Pain in left shoulder; G89.29 - Other chronic pain Plan The dressing was changed today. The patient will continue the stimulation therapy. The patient will follow-up in seven weeks for removal of the device. In the case of inadequate pain relief, we will consider ultrasound guided subacromial bursa injections since her previous non guided cortisone injections were not helpful. Scribed for Dr. Cid by Praful Brian, medical laboratory technical officer, on 06/09/2023. I, Dr. Cid, have personally reviewed and agree with the information entered by the scribe. Coding Level of Care Code Est Pt Level 3 (28462) Diagnoses Chronic left shoulder pain M25.512; G89.29 Chronicity: chronic
[2023-06-09 10:12] VITALS: BP 130/82; PULSE 66; RESP 12; O2SAT 96; BMI 32.3
== END 2023-06-09 10:37 | disposition home or self-care (01) ==
PROVIDERS: PCP Internal Medicine; Visit Provider Internal Medicine
DX: M25.512 Pain in left shoulder (principal); G89.29 Other chronic pain
CPT/HCPCS: 99024

== ENCOUNTER → 2023-06-09 09:55 | Outpatient (BNVA) | payer OTHER, SELFPAY | PROVIDERS: PCP Internal Medicine; Visit Provider Internal Medicine | DX: M25.512 Pain in left shoulder (principal); G89.29 Other chronic pain | CPT/HCPCS: 99212 ==

== ENCOUNTER 2023-07-28 09:34 | Outpatient (AMB) | payer OTHER, SELFPAY ==
[2023-07-28 10:06] VITALS: BP 133/74; PULSE 66; O2SAT 100; BMI 32.4
--- NOTE | 2023-07-28 10:06 | A.OFFVIS_ITS ---
Vital Signs 07/28/23 10:06 Height 5 ft 4 in Weight 188 lb 8 oz BMI 32.4 BP 133/74 Blood Pressure Location Rt brachial Position Sitting Pulse 66 Pulse Source Pulse Oximeter Pulse Oximetry (%) 100 Oxygen Delivery Method Room Air Intake Visit Reasons: Left Sprint removal Intake Note: Pain today 0/10 Health Data Administrator Required: Yes Health Data Administrator Language: Crm Developer Name: Spouse Accompanied by: Spouse Allergies diphenhydramine [From BENADRYL] Allergy (Intermediate, Verified 07/28/23 10:07) SEVERE LETHARGY Medication List - Last Reconciled 07/28/23 by Laura Alegria LPN albuterol sulfate 90 mcg/actuation 2 puffs inhalation Q4-6H PRN albuterol sulfate 90 mcg/actuation 2 inhalations inhalation Q4-6H PRN baclofen 10 mg PO TID benzonatate 100 mg PO BID PRN tyirsvfsos-xpkgwkbhqewtk-stok 50-325-40 mg 1 tab PO Q6H PRN celecoxib 200 mg PO BID cholecalciferol (vitamin D3) 50 mcg PO DAILY diclofenac sodium 1% topical hydroxyzine HCl 25 - 50 mg PO TID PRN ketorolac 10 mg PO TID PRN 5 days levothyroxine 137 mcg PO DAILY 90 days lorazepam 0.5 mg PO BEDTIME PRN omeprazole 20 mg PO DAILY ondansetron 4 mg PO DAILY PRN 5 days prednisone 40 mg (2 x 20 mg) PO DAILY 5 days valacyclovir 500 mg PO DAILY HPI HPI Left Sprint removal: Details: 53-year-old female who presents today to the office for a left sprint removal. The patient reports relief of her constant pain symptoms from the procedure. She no longer has constant baseline pain. She describes it as pain and pressure. She denies difficulty with ROM. She still has difficulty lifting her arm during praying and reaching out to her back. She had cortisone shoulder injections three times in the past with no significant relief. Past procedures: 06/01/2023: Peripheral Nerve Stimulation Temporary Lead Placement, Ultrasound- Guided, Suprascapular Nerve, Left: No relief yet. 05/11/23: Peripheral Nerve Stimulation Temporary Lead Placement, Ultrasound- Guided, Brachial Plexus in the Interscalene Groove, Left: Lead displaced prematurely 03/06/23: Left diagnostic interscalene nerve block, ultrasound guided: % relief. 02/10/23: Left diagnostic suprascapular nerve block, US guided: No relief. PFSH Medical History Panic attacks Asthma Depression Vitamin D deficiency Hypothyroidism Thyroid activity decreased Surgical History Hx of cervical polypectomy Hx of lithotripsy Hx of gastric bypass Family History Father Leukemia Cancer Mother Diabetes mellitus Hypertension Social History Household Members: Spouse Housing: Apartment Alcohol intake: former Comment: medicated with ketorolac and po tylenol Patient Tobacco Use Status: Never used Tobacco Current occupational status: unemployed Sexual orientation: Straight/Heterosexual Gender identity: Female Female Reproductive History Menstrual Age of Menarche: 12 Review of Systems Const All systems reviewed & are unremarkable except as noted in HPI and below Physical Exam Vital Signs: Last Vital Signs Pulse 66 07/28/23 10:06 BP 133/74 07/28/23 10:06 Pulse Ox 100 07/28/23 10:06 Oxygen Delivery Method Room Air 07/28/23 10:06 BMI result Body Mass Index 32.4 General: Appears afebrile. Alert and oriented. Mood and affect appropriate. Follows and participates in conversation appropriately. Respiratory effort is unlabored. Able to transition from sit to stand unassisted. Ambulates with bilaterally normal heel strike and toe off. Results Reviewed Results Reviewed: No imaging is available for review. Assessment & Plan Assessment & Plan (1) Left shoulder pain: Code(s): M25.512 - Pain in left shoulder Category: Medical Qualifiers: Chronicity: chronic Qualified Code(s): M25.512 - Pain in left shoulder; G89.29 - Other chronic pain (2) Capsulitis of left shoulder: Code(s): M77.8 - Other enthesopathies, not elsewhere classified Category: Medical (3) Left shoulder tendinitis: Code(s): M77.8 - Other enthesopathies, not elsewhere classified Category: Medical Plan Discussed cortisone injections under ultrasound guidance vs. PRP injections as a possible treatment option. We will schedule her for a left subacromial bursa injection. Discussed the risks and benefits of the procedure with the patient in detail. All questions were answered. The patient is on board with the plan. Justification for interventional therapy: ? Patient with average pain > 6/10 ? Patient has exhausted conservative therapy ? Patient unable to tolerate physical therapy due to pain. . Patient has a good understanding of their pain condition and has appropriate mental and social support. Scribed for Dr. Cid by Praful Brian, medical secretary receptionist, on 07/28/2023. I, Dr. Cid, have personally reviewed and agree with the information entered by the scribe.
== END 2023-07-28 10:15 | disposition home or self-care (01) ==
PROVIDERS: PCP Internal Medicine; Visit Provider Internal Medicine
DX: M25.512 Pain in left shoulder (principal); G89.29 Other chronic pain; M77.8 Other enthesopathies, not elsewhere classified
CPT/HCPCS: 99213

== ENCOUNTER → 2023-07-28 09:34 | Outpatient (BNVA) | payer OTHER, SELFPAY | PROVIDERS: PCP Internal Medicine; Visit Provider Internal Medicine | DX: M25.512 Pain in left shoulder (principal); M77.8 Other enthesopathies, not elsewhere classified | CPT/HCPCS: 99212 ==

== ENCOUNTER 2023-08-18 10:44 | Outpatient (AMB) | payer OTHER, SELFPAY ==
--- NOTE | 2023-08-18 10:48 | MHC.OFFVIS ---
Vital Signs 08/18/23 10:49 Height 5 ft 4 in BP 138/72 Blood Pressure Location Lt brachial Position Sitting Respiration 14 Pulse 67 Pulse Source Pulse Oximeter Pulse Oximetry (%) 96 Oxygen Delivery Method Room Air Intake Visit Reasons: Left subacromial bursa inj Installation Supervisor Required: Yes Installation Supervisor Name: #[id number] Pari Allergies diphenhydramine [From BENADRYL] Allergy (Intermediate, Verified 08/18/23 10:52) SEVERE LETHARGY Medication List - Last Reconciled 08/18/23 by Laura Alegria LPN albuterol sulfate 90 mcg/actuation 2 puffs inhalation Q4-6H PRN albuterol sulfate 90 mcg/actuation 2 inhalations inhalation Q4-6H PRN baclofen 10 mg PO TID benzonatate 100 mg PO BID PRN igaltbrdno-qkcwsgdjlikmu-mjqn 50-325-40 mg 1 tab PO Q6H PRN celecoxib 200 mg PO BID cholecalciferol (vitamin D3) 50 mcg PO DAILY diclofenac sodium 1% topical hydroxyzine HCl 25 - 50 mg PO TID PRN ketorolac 10 mg PO TID PRN 5 days levothyroxine 137 mcg PO DAILY 90 days lorazepam 0.5 mg PO BEDTIME PRN omeprazole 20 mg PO DAILY ondansetron 4 mg PO DAILY PRN 5 days prednisone 40 mg (2 x 20 mg) PO DAILY 5 days valacyclovir 500 mg PO DAILY HPI HPI Left subacromial bursa inj: Details: 53-year-old female who presents today to the office for a left subacromial bursa injection. Denies any recent cough, cold, infection, fever, or other significant changes in medical history since the last office visit. She has noticed significant improvement in her constant pain. She continues to have pain with certain movements. She has clicking sounds in her shoulder with movements. She had an MRI scan of the shoulder in the past. Past procedures: 06/01/2023: Peripheral Nerve Stimulation Temporary Lead Placement, Ultrasound-Guided, Suprascapular Nerve, Left: Relief of constant pain, continues to have pain with motion 05/11/23: Peripheral Nerve Stimulation Temporary Lead Placement, Ultrasound-Guided, Brachial Plexus in the Interscalene Groove, Left: Lead displaced prematurely 03/06/23: Left diagnostic interscalene nerve block, ultrasound guided: % relief. 02/10/23: Left diagnostic suprascapular nerve block, US guided: No relief. PFSH Medical History Panic attacks Asthma Depression Vitamin D deficiency Hypothyroidism Thyroid activity decreased Surgical History Hx of cervical polypectomy Hx of lithotripsy Hx of gastric bypass Family History Father Leukemia Cancer Mother Diabetes mellitus Hypertension Social History Household Members: Spouse Housing: Apartment Alcohol intake: former Comment: medicated with ketorolac and po tylenol Patient Tobacco Use Status: Never used Tobacco Current occupational status: unemployed Sexual orientation: Straight/Heterosexual Gender identity: Female Female Reproductive History Menstrual Age of Menarche: 12 Review of Systems Const All systems reviewed & are unremarkable except as noted in HPI and below Physical Exam Vital Signs: Last Vital Signs Pulse 67 08/18/23 10:49 Resp 14 08/18/23 10:49 BP 138/72 08/18/23 10:49 Pulse Ox 96 08/18/23 10:49 Oxygen Delivery Method Room Air 08/18/23 10:49 General: Appears afebrile. Alert and oriented. Mood and affect appropriate. Follows and participates in conversation appropriately. Respiratory effort is unlabored. Able to transition from sit to stand unassisted. Ambulates with bilaterally normal heel strike and toe off. Office Procedures Joint Injection/Drain Joint Injection/Drain Details: Left subacromial shoulder injection, under ultrasound guidance Primary Site: left shoulder Prep: site was prepped using aseptic technique and site was prepped using sterile technique Injected: 40 mg of, Kenalog, with 3 mL of (0.25% ropivacaine) and in the subcromial space Approach Used: posterolateral Procedure: The patient tolerated the procedure well Coding Details: An ultrasound image of the injection was taken and stored in the permanent record. - Acromioclavicular with ultrasound guidance (Right ) Procedure code (CPT) selection complete Results Reviewed Results Reviewed: No imaging is available for review. Assessment & Plan Assessment & Plan (1) Left shoulder tendinitis: Code(s): M77.8 - Other enthesopathies, not elsewhere classified Category: Medical (2) Capsulitis of left shoulder: Code(s): M77.8 - Other enthesopathies, not elsewhere classified Category: Medical Plan Patient is status post left subacromial shoulder injection, under ultrasound guidance. Patient tolerated procedure well and was discharged home in stable condition with discharge instructions. All questions were answered. Follow-up as needed. Scribed for Dr. Cid by Praful Brian medical administrative, on 08/18/2023. I, Dr. Cid, have personally reviewed and agree with the information entered by the scribe. Coding Level of Care Code Procedure Only Diagnoses Left shoulder tendinitis M77.8 Capsulitis of left shoulder M77.8 CPT Codes Coding - Joint 6: 69259 - Acromioclavicular with ultrasound guidance ([id number])
[2023-08-18 10:49] VITALS: BP 138/72; PULSE 67; RESP 14; O2SAT 96
== END 2023-08-18 11:06 | disposition home or self-care (01) ==
PROVIDERS: PCP Internal Medicine; Visit Provider Internal Medicine
DX: M77.8 Other enthesopathies, not elsewhere classified (principal)
CPT/HCPCS: 20611

== ENCOUNTER → 2023-08-18 10:44 | Outpatient (BNVA) | payer OTHER, SELFPAY | PROVIDERS: PCP Internal Medicine; Visit Provider Internal Medicine | DX: M77.8 Other enthesopathies, not elsewhere classified (principal) | CPT/HCPCS: 20611; J2795; J3301 ==

== ENCOUNTER 2023-09-12 13:32 | Outpatient (REF) | payer OTHER, SELFPAY ==
[2023-09-12 14:55] LABS: Free T4 (Free Thyroxine) 0.99 ng/dL (0.71-1.85); Thyroid Stimulating Hormone 4.32 uIU/mL (0.32-4.0); Vitamin D 25-OH Total 33.6 ng/mL (>30)
== END 2023-09-12 13:33 | disposition home or self-care (01) ==
LOC: HO.LAB 13:32
PROVIDERS: PCP Internal Medicine; Visit Provider Internal Medicine Endocrinology, Diabetes & Metabolism
DX: E03.8 Other specified hypothyroidism (principal); E06.3 Autoimmune thyroiditis; E55.9 Vitamin D deficiency, unspecified
CPT/HCPCS: 36415; 82306; 84439; 84443; 99212

== ENCOUNTER 2023-09-12 15:11 | Outpatient (AMB) | payer OTHER, SELFPAY ==
--- NOTE | 2023-09-12 15:25 | A.OFFVIS_ITS ---
Vital Signs 09/12/23 15:27 Height 5 ft 4 in Weight 190 lb 7.67 oz BMI 32.7 BP 106/60 Blood Pressure Location Lt brachial Position Sitting Pulse 77 Pulse Source Pulse Oximeter Intake Visit Reasons: Hypothyroidism (Adult) Intake Note: Patient present today for Hypothyroidism follow up visit. Hospice Clinical Marketer Required: Yes Hospice Clinical Marketer Language: Garden Labourer Name: Sudha Information Interpreted: non-clinical & clinical Accompanied by: Spouse Allergies diphenhydramine [From BENADRYL] Allergy (Intermediate, Verified 09/12/23 15:30) SEVERE LETHARGY Medication List - Last Reconciled 09/12/23 by Ru Shah MD albuterol sulfate 90 mcg/actuation 2 puffs inhalation Q4-6H PRN albuterol sulfate 90 mcg/actuation 2 inhalations inhalation Q4-6H PRN baclofen 10 mg PO TID benzonatate 100 mg PO BID PRN fjgjirvkvu-bqlkyhvjegntr-vfwj 50-325-40 mg 1 tab PO Q6H PRN celecoxib 200 mg PO BID cholecalciferol (vitamin D3) 50 mcg PO DAILY diclofenac sodium 1% topical hydroxyzine HCl 25 - 50 mg PO TID PRN ketorolac 10 mg PO TID PRN 5 days levothyroxine 137 mcg PO DAILY 90 days lorazepam 0.5 mg PO BEDTIME PRN omeprazole 20 mg PO DAILY ondansetron 4 mg PO DAILY PRN 5 days prednisone 40 mg (2 x 20 mg) PO DAILY 5 days valacyclovir 500 mg PO DAILY HPI Comments Details: 53 yo female today for fup visit, last seen on 03/05/2020 for hypothyroidism and vitamin-D deficiency Her last TSH checked by PCP on 06/06/2018 was 1.71 mIU/mL. She was diagnosed 2005, secondary to Joe's disease She is Currently on levothyroxine generic 137 mcg . She is now 100 % compliance. She has a Good method of administration. Denies cold intolerance, S stable weight. She has regular periods, LMP 02/19/2020 , denies diarrhea, Occasional constipation, Denies insomnia, denies fatigue, no dry skin, no hair loss, denies dysphagia, dyspnea, dysphonia, no tremors, Family History: Positive hypothyroidism in mother. 04/24/16 TSH 17.71 MIU/ML FT4 0.75 ng/ml Trended TSH since 2005 ranges 0.48 - 28.59 MIU/ML most of the time elevated. Trended FT4 ranges 0.55- 1.27 ng/DL. TPO 278 Thyroid US 06/25/16, small thyroid no nodules. Laboratory Tests 03/05/19 06/04/19 08:30 11:15 25-OH Vitamin D Total 12.8 Free T4 1.19 TSH 3rd Generation 0.80 PFSH Medical History Panic attacks Asthma Depression Vitamin D deficiency Hypothyroidism Thyroid activity decreased Surgical History Hx of cervical polypectomy Hx of lithotripsy Hx of gastric bypass Family History Father Leukemia Cancer Mother Diabetes mellitus Hypertension Social History Household Members: Spouse Housing: Apartment Alcohol intake: former Comment: medicated with ketorolac and po tylenol Patient Tobacco Use Status: Never used Tobacco Current occupational status: unemployed Sexual orientation: Straight/Heterosexual Gender identity: Female Female Reproductive History Menstrual Age of Menarche: 12 Physical Exam Vital Signs: Last Vital Signs Pulse 77 09/12/23 15:27 BP 106/60 09/12/23 15:27 BMI result Body Mass Index 32.7 Const Other: Thyroid gland is normal size weighs about 15 g. There are no thyroid nodules palpated. 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 She is currently replaced with levothyroxine 137 mcg q.d.. She appears to be clinically euthyroid but has a slightly elevated TSH level. Plan is to increase levothyroxine to 150 mcg switch to branded Synthroid. Patient is having difficulty controlling the hypothyroidism on generic l evothyroxine he has had fluctuating TSH levels making the brand name medically necessary. Will recheck TSH and free T4-6 weeks after starting the increased dose (2) Vitamin D deficiency: Code(s): E55.9 - Vitamin D deficiency, unspecified Category: Medical Plan: Twenty-five hydroxy vitamin-D levels now appear to be replete Orders: Orders Free T4 (Free Thyroxine) Today E03.8 - Other specified hypothyroidism, E06.3 - Autoimmune thyroiditis, E55.9 - Vitamin D deficiency, unspecified Vitamin D 25-OH Total Today E03.8 - Other specified hypothyroidism, E06.3 - Autoimmune thyroiditis, E55.9 - Vitamin D deficiency, unspecified Thyroid Stimulating Hormone 6 Weeks E03.8 - Other specified hypothyroidism, E06.3 - Autoimmune thyroiditis Thyroid Stimulating Hormone Today E03.8 - Other specified hypothyroidism, E06.3 - Autoimmune thyroiditis, E55.9 - Vitamin D deficiency, unspecified Free T4 (Free Thyroxine) 6 Weeks E03.8 - Other specified hypothyroidism, E06.3 - Autoimmune thyroiditis Medications: New Synthroid (levothyroxine) 150 mcg PO DAILY 30 tabs 5RF NS Discontinued levothyroxine Discontinued Reason: Doctor's Order 137 mcg PO DAILY 90 days 90 tabs 3RF E03.8 - Other specified hypothyroidism, E06.3 - Autoimmune thyroiditis Coding Level of Care Code Est Pt Level 3 (19393) Diagnoses 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
[2023-09-12 15:27] VITALS: BP 106/60; PULSE 77; BMI 32.7
== END 2023-09-12 15:59 | disposition home or self-care (01) ==
PROVIDERS: PCP Internal Medicine; Visit Provider Internal Medicine Endocrinology, Diabetes & Metabolism
DX: E03.8 Other specified hypothyroidism (principal); E06.3 Autoimmune thyroiditis; E55.9 Vitamin D deficiency, unspecified
CPT/HCPCS: 99213

== ENCOUNTER 2023-12-13 12:11 | Outpatient (REF) | payer OTHER, SELFPAY ==
[2023-12-13 13:27] LABS: MANUAL DIFF FLAG NO
[2023-12-13 13:31] LABS: Basophils Percent Auto 0.6 % (0-2); Eosinophils Absolute Auto 0.2 X10*3/uL (0.0-0.4); Eosinophils Percent Auto 3.9 % (0-4); Hematocrit 38.8 % (37.0-47.0); Hemoglobin 12.7 g/dl (12.0-16.0); Imm Gran Abs Auto 0.01 X10*3/uL (0.00-0.03); Imm Gran Pct Auto 0.2 % (0.0-0.4); Lymphocytes Absolute Auto 1.7 X10*3/uL (1.2-4.9); Lymphocytes Percent Auto 35.8 % (20-40); Mean Corpuscular HGB Conc 32.7 g/dl (31.0-35.0); Mean Corpuscular Hemoglobin 29.7 pg (27.0-33.0); Mean Corpuscular Volume 90.7 fL (80.0-98.0); Mean Platelet Volume 11.4 fL (9.4-12.3); Monocytes Absolute Auto 0.4 X10*3/uL (0.1-1.2); Monocytes Percent Auto 9.3 % (2-11); Neutrophils Absolute Auto 2.3 x10*3/uL (2.0-8.3); Neutrophils Percent Auto 50.2 % (45-73); Platelet Count 171 X10*3/uL (160-400); Red Blood Count 4.28 X10*6/uL (4.20-5.50); Red Cell Distribution Width 13.4 % (11.0-16.0); White Blood Count 4.6 X10*3/uL (4.8-10.8)
[2023-12-13 14:06] LABS: Estimated Average Glucose 105 mg/dL; Hemoglobin A1c % 5.3 % (<6.0)
[2023-12-13 14:19] LABS: Alanine Aminotransferase 5 U/L (0-31); Albumin Level 4.1 g/dL (3.5-5.0); Alkaline Phosphatase 128 U/L (39-117); Anion Gap 13 (12-20); Aspartate Amino Transferase 20 U/L (5-31); Bilirubin Total 0.4 mg/dL (0.0-1.0); Blood Urea Nitrogen 14 mg/dL (9-16); Calcium 9.9 mg/dL (8.4-10.2); Carbon Dioxide 26 mmol/L (22-29); Chloride 109 mmol/L (96-108); Cholesterol 187 mg/dL (<200); Estimated Glomerular Filt Rate > 60; Glucose Random 86 mg/dL (60-115); HDL Cholesterol 68 mg/dL (>40); LDL Cholesterol Calculated 109 mg/dL (<100); Potassium 3.9 mmol/L (3.3-5.1); Sodium 144 mmol/L (135-145); Total Protein 7.2 g/dL (6.5-8.0); Triglycerides 52 mg/dL (<150)
[2023-12-13 14:21] LABS: TSH reflex Free T4 0.45 uIU/mL (0.32-4.0); Vitamin D 25-OH Total 34.8 ng/mL (>30)
[2023-12-13 14:23] LABS: Folate 14.5 ng/mL (> or = 4.0); Reflex LDLD? No; Vitamin B12 171 pg/mL (200-900)
[2023-12-14 04:24] LABS: HIV AB/AG Nonreactive (Nonreactive); HIV Num 1 0.05 S/CO (0.00-0.99)
[2023-12-14 16:58] LABS: HCV Log PCR <1.18 NOT DETECTED Log IU/mL (NOT DETECTED); HepC Viral Load <15 NOT DETECTED IU/mL (NOT DETECTED)
== END 2023-12-13 12:12 | disposition home or self-care (01) ==
LOC: HO.HHCL 12:11
PROVIDERS: Visit Provider Internal Medicine
DX: R53.83 Other fatigue (principal); Z13.1 Encounter for screening for diabetes mellitus
CPT/HCPCS: 36415; 80053; 80061; 82306; 82607; 82746; 83036; 84443; 85025; 87389; 87522

== ENCOUNTER 2024-01-22 15:29 | Outpatient (REF) | payer OTHER, SELFPAY ==
[2024-01-22 17:43] LABS: Free T4 (Free Thyroxine) 1.06 ng/dL (0.71-1.85); Thyroid Stimulating Hormone 0.68 uIU/mL (0.32-4.0)
== END 2024-01-22 15:30 | disposition home or self-care (01) ==
LOC: HO.LAB 15:29
PROVIDERS: PCP Internal Medicine; Visit Provider Internal Medicine Endocrinology, Diabetes & Metabolism
DX: E03.8 Other specified hypothyroidism (principal); E06.3 Autoimmune thyroiditis
CPT/HCPCS: 36415; 84439; 84443

== ENCOUNTER 2024-01-23 16:13 | Outpatient (AMB) | payer OTHER, SELFPAY ==
[2024-01-23 16:18] VITALS: BP 112/70; PULSE 75; BMI 32.5
--- NOTE | 2024-01-23 16:18 | A.OFFVIS_ITS ---
Vital Signs 01/23/24 16:18 Height 5 ft 4 in Weight 189 lb 9.561 oz BMI 32.5 BP 112/70 Blood Pressure Location Rt brachial Position Sitting Pulse 75 Pulse Source Pulse Oximeter Intake Visit Reasons: hypothyroidism-conf Intake Note: Patient present today for Hypothyroidism follow up visit. Supervisor Feed Mill Required: Yes Supervisor Feed Mill Language: Operations Tech Name: CLAUDIA Hawkins/PHILIP GOMEZ Information Interpreted: non-clinical & clinical Accompanied by: Self / Same As Patient Allergies diphenhydramine [From BENADRYL] Allergy (Intermediate, Verified 01/23/24 16:26) SEVERE LETHARGY Medication List - Last Reconciled 01/23/24 by Ru Shah MD albuterol sulfate 90 mcg/actuation 2 puffs inhalation Q4-6H PRN albuterol sulfate 90 mcg/actuation 2 inhalations inhalation Q4-6H PRN baclofen 10 mg PO TID benzonatate 100 mg PO BID PRN tlaxwbrcpj-uvfuksitnabmp-apuz 50-325-40 mg 1 tab PO Q6H PRN celecoxib 200 mg PO BID cholecalciferol (vitamin D3) 50 mcg PO DAILY diclofenac sodium 1% topical hydroxyzine HCl 25 - 50 mg PO TID PRN ketorolac 10 mg PO TID PRN 5 days lorazepam 0.5 mg PO BEDTIME PRN omeprazole 20 mg PO DAILY ondansetron 4 mg PO DAILY PRN 5 days prednisone 40 mg (2 x 20 mg) PO DAILY 5 days Synthroid (levothyroxine) 150 mcg PO DAILY NS valacyclovir 500 mg PO DAILY HPI Comments Details: 54 yo female today for fup visit, last seen on 03/05/2020 for hypothyroidism and vitamin-D deficiency Her last TSH checked by PCP on 06/06/2018 was 1.71 mIU/mL. She was diagnosed 2005, secondary to Joe's disease She is Currently on levothyroxine generic 137 mcg . She is now 100 % compliance. She has a Good method of administration. Vasylies cold intolerance, S stable weight. She has regular periods, LMP 02/19/2020 , denies diarrhea, Occasional constipation, Denies insomnia, denies fatigue, no dry skin, no hair loss, denies dysphagia, dyspnea, dysphonia, no tremors, Family History: Positive hypothyroidism in mother. 04/24/16 TSH 17.71 MIU/ML FT4 0.75 ng/ml Trended TSH since 2005 ranges 0.48 - 28.59 MIU/ML most of the time elevated. Trended FT4 ranges 0.55- 1.27 ng/DL. TPO 278 Thyroid US 06/25/16, small thyroid no nodules. Laboratory Tests 03/05/19 06/04/19 08:30 11:15 25-OH Vitamin D Total 12.8 Free T4 1.19 TSH 3rd Generation 0.80 PFSH Medical History Panic attacks Asthma Depression Vitamin D deficiency Hypothyroidism Thyroid activity decreased Surgical History Hx of cervical polypectomy Hx of lithotripsy Hx of gastric bypass Family History Father Leukemia Cancer Mother Diabetes mellitus Hypertension Social History Household Members: Spouse Housing: Apartment Alcohol intake: former Comment: medicated with ketorolac and po tylenol Patient Tobacco Use Status: Never used Tobacco Current occupational status: unemployed Sexual orientation: Straight/Heterosexual Gender identity: Female Female Reproductive History Menstrual Age of Menarche: 12 Physical Exam Vital Signs: Last Vital Signs Pulse 75 01/23/24 16:18 BP 112/70 01/23/24 16:18 BMI result Body Mass Index 32.5 Const Other: Thyroid gland is normal size weighs about 15 g. There are no thyroid nodules palpated. 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 She is currently replaced with Synthroid mcg q.d.. She appears to be clinically and biochemically euthyroid Plan is to continue the current treatment. 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
== END 2024-01-23 16:43 | disposition home or self-care (01) ==
PROVIDERS: PCP Internal Medicine; Visit Provider Internal Medicine Endocrinology, Diabetes & Metabolism
DX: E03.8 Other specified hypothyroidism (principal); E06.3 Autoimmune thyroiditis
CPT/HCPCS: 99213

== ENCOUNTER → 2024-01-23 16:13 | Outpatient (BNVA) | payer OTHER, SELFPAY | PROVIDERS: PCP Internal Medicine; Visit Provider Internal Medicine Endocrinology, Diabetes & Metabolism | DX: E03.8 Other specified hypothyroidism (principal); E06.3 Autoimmune thyroiditis | CPT/HCPCS: 99212 ==

== ENCOUNTER 2024-02-07 07:22 | Emergency (ER) | payer OTHER, SELFPAY ==
--- NOTE | ~2024-02-07 | CT_ITS ---
EXAMINATION: CT HEAD WITHOUT CONTRAST CLINICAL INFORMATION: Intractable headaches for several weeks COMPARISON: MRI brain 06/29/2022. CT brain 06/10/2022 TECHNIQUE: Contiguous axial imaging was performed from the skull base to vertex without intravenous administration of contrast. This CT examination was performed using dose optimization techniques as appropriate, variously including the following: *Automated exposure control *Adjustment of mA and/or kV according to patient size (this includes techniques or standardized protocols for targeted exams where dose is matched to indication/reason for exam; i.e. extremities or head) *Use of iterative reconstruction technique DLP: 631 mGy-cm FINDINGS: No intra or extra-axial fluid collection or hemorrhage, mass or mass effect. Sulci and ventricles normal. Calvarium is intact. Ossification in portions of the left mastoid air cells speaks for chronic mastoiditis. There is mild mucoperiosteal thickening within the ethmoid sinuses. CT/CT head/brain wo IV con IMPRESSION: No acute intracranial pathology. Electronically signed by: Maksim Tabor MD 02/07/2024 09:51 AM EDT
[2024-02-07 07:33] VITALS: BP 127/50; PULSE 72; RESP 16; TEMP 35.9; O2SAT 98; BMI 33.2
--- NOTE | 2024-02-07 08:02 | PC.NURSE ---
patient arrives ambulatory with steady gait through external triage with cc of headache for the last 3 weeks, patient states she has seen her primary care doctor and was prescribed various medications with no good effect. patient states she has sensitivity to light and endorses some occasional nausea when the pain is very bad, patient neuros grossly intact, PERRLA, speaking in clear and complete sentences. patient resting comfortably on stretcher, callbell within reach, awaiting MD nichols, plan of care ongoing
--- NOTE | 2024-02-07 08:21 | ED.HA ---
HPI - Headache General Chief Complaint: Headache Stated Complaint: Headache 3 weeks Time Seen by Provider: 02/07/24 07:47 Source: patient Mode of arrival: ambulatory Limitations: no limitations History of Present Illness ED Provider: JOON BELLO Narrative: 54 yo female with PMH of hypothyroidism, asthma, chronic migraines here with 3 weeks of headache across the front of her head. No fevers, head trauma. She reports she is taking NSAIDs and fioricet but it doesn't help. She notes this is a typical pattern of pain for her but it has never lasted 3 weeks. She states her VNA thinks it is stress and anxiety as she stopped her benzo and atarax 4 months ago. Patient denies any other new features but cannot get rid of the daily pain, photophobia, nausea. She has no loss of vision, numbness, weakness. MD elicited complaint: migraine Pertinent past history: migraines Onset (ago): week(s) (3) Onset description: gradually Location: frontal Severity: moderate Quality & Timing: throbbing Exacerbating factors: light Relieving factors: nothing Context: occurred at rest Associated symptoms: nausea and photophobia Treatments prior to arrival: ibuprofen and prescription analgesic Related Data Home Medications ?Medication ?Instructions ?Recorded ?Confirmed lorazepam 0.5 mg tablet 0.5 mg PO BEDTIME PRN Anxiety 03/05/20 08/18/23 hydroxyzine HCl 25 mg tablet 25 - 50 mg PO TID PRN anxiety 06/08/21 08/18/23 omeprazole 20 mg capsule,delayed 20 mg PO DAILY 06/08/21 08/18/23 release valacyclovir 500 mg tablet 500 mg PO DAILY 01/04/22 08/18/23 baclofen 10 mg tablet 10 mg PO TID 06/01/23 08/18/23 diclofenac sodium 1 % topical gel topical 06/01/23 08/18/23 Previous Rx's ?Medication ?Instructions ?Recorded albuterol sulfate 90 mcg/actuation 2 puff inhalation Q4-6H PRN 02/26/20 aerosol inhaler shortness of breath or wheezing #6.7 grams cholecalciferol (vitamin D3) 50 50 mcg PO DAILY #90 caps 11/29/22 mcg (2,000 unit) capsule celecoxib 200 mg capsule 200 mg PO BID #60 caps 01/30/23 lmdjoxvbpz-ahxqtyzfhfkhz-ktvlwrlw 1 tab PO Q6H PRN pain (scale score 02/16/23 50 mg-325 mg-40 mg tablet 4-6) #10 tabs ondansetron 4 mg disintegrating 4 mg PO DAILY PRN nausea and 02/16/23 tablet vomiting 5 days #14 tabs albuterol sulfate 90 mcg/actuation 2 inh inhalation Q4-6H PRN 02/23/23 breath activated powder inhaler shortness of breath or wheezing #1 ea benzonatate 100 mg capsule 100 mg PO BID PRN cough #20 caps 02/23/23 ketorolac 10 mg tablet 10 mg PO TID PRN pain 5 days #15 02/23/23 tabs prednisone 20 mg tablet 40 mg (2 x 20 mg) PO DAILY 5 days 02/23/23 #10 tabs Synthroid 150 mcg tablet 150 mcg PO DAILY #30 tabs 09/12/23 (levothyroxine) Allergies Allergy/AdvReac Type Severity Reaction Status Date / Time diphenhydramine Allergy Intermediate SEVERE Verified 02/07/24 07:35 [From BENADRYL] LETHARGY acetaminophen [From Percocet] AdvReac Anxiety Verified 02/07/24 07:35 oxycodone [From Percocet] AdvReac Anxiety Verified 02/07/24 07:35 Review of Systems Review of Systems: Constitutional : No Fever, No Chills, No Fatigue ENT/Mouth : No sore throat, No Rhinorrhea Eyes: No Eye Pain, No Swelling, No Redness Cardiovascular : No Chest Pain, No SOB, No Dyspnea on Exertion Respiratory : No Cough, No Sputum Gastrointestinal : pos Nausea, No Vomiting, No Diarrhea, No abdominal Pain Genitourinary : No Dysuria, No Urinary Frequency, No Hematuria, Musculoskeletal : No joint pain, No Myalgias, No Joint Swelling Skin : No Skin Lesions, No rash Neuro : No Weakness, No Numbness, No Dizziness, positive Headache Psych : No Anxiety/Panic, No Depression All other systems reviewed and are negative PMFSH Past Medical History Attestation statement: The following information was validated with the patient. Source: old records reviewed Medical History Panic attacks Asthma Depression Vitamin D deficiency Hypothyroidism Thyroid activity decreased Surgical History Hx of cervical polypectomy Hx of lithotripsy Hx of gastric bypass Family History Family History Father Leukemia Cancer Mother Diabetes mellitus Hypertension Social History Social History Household Members: Spouse Housing: Apartment Alcohol intake: former Comment: medicated with ketorolac and po tylenol Patient Tobacco Use Status: Never used Tobacco Smoked in Last 30 Days: No Use of substances other than those prescribed or required for medical reasons: No Advance Directives: No Patient : No Current occupational status: unemployed Sexual orientation: Straight/Heterosexual Gender identity: Female Physical Exam Vital Signs: Vital Signs: Last Vital Signs Temp 96.7 F L 02/07/24 07:33 Pulse 72 02/07/24 07:33 Resp 16 02/07/24 07:33 BP 127/50 L 02/07/24 07:33 Pulse Ox 98 02/07/24 07:33 O2 Del Method Room Air 02/07/24 07:33 BMI result Body Mass Index 33.2 Appearance: Alert. Oriented X3. No acute distress. Eyes: Pupils equal, round and reactive to light. mild photophobia ENT: Pharynx normal. atraumatic Neck: Normal inspection. Neck supple. CVS: Normal heart rate and rhythm. Pulses normal. Respiratory: No respiratory distress. Breath sounds normal. Abdomen: Soft and non-tender. Skin: Skin warm and dry. Normal skin color. Normal skin turgor. Extremities: No lower extremity edema. No calf ttp Neuro: Oriented X 3. No motor deficit. No sensory deficit. Medications Administered Generic Name Dose Route Start Last Admin Trade Name Freq PRN Reason Stop Dose Admin Magnesium Sulfate 2 gm in 50 mls @ 25 mls/hr 02/07/24 08:16 02/07/24 09:32 Magnesium Sulfate/H2o IV 02/07/24 10:15 25 mls/hr ONCE ONE Administration Discontinued Medications Generic Name Dose Route Start Last Admin Trade Name Freq PRN Reason Stop Dose Admin Dexamethasone Sodium Phosphate 6 mg 02/07/24 08:16 02/07/24 09:25 Dexamethasone Sod Phosphate 4 Mg/Ml Vial IVPUSH 02/07/24 08:17 6 mg ONCE ONE Administration Ketorolac Tromethamine 15 mg 02/07/24 08:16 02/07/24 09:24 Ketorolac Tromethamine 15 Mg/Ml Vial IVPUSH 02/07/24 08:17 15 mg ONCE ONE Administration Lorazepam 0.5 mg 02/07/24 08:16 02/07/24 09:23 Lorazepam 2 Mg/Ml Vial IVPUSH 02/07/24 08:17 0.5 mg STAT STA Administration Prochlorperazine Edisylate 5 mg 02/07/24 08:16 02/07/24 09:28 Prochlorperazine Edisylate 10 Mg/2 Ml Vial IVPUSH 02/07/24 08:17 5 mg ONCE ONE Administration Medical Decision Making Medical Decision Making MDM Narrative: 54 yo female with PMH of hypothyroidism, asthma, chronic migraines here with c/o 3 weeks gradual onset headache that will not go away despite medications she has a normal neuro exam she is not toxic at this time will obtain CT head to rule out mass given 3 week duration and start on magnesium/dexamethasone. IV medications for migraine. 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 Differential Diagnosis Differential Diagnoses: The differential diagnosis associated with the presentation includes tension headache, migraine, mass Admission/Observation Consideration of admission/observation: Escalation of care including admission/observation considered feels much better stable for DC Independent Interpretation I performed an independent interpretation of an: CT Scan (normal ) Radiology Impression Discussion of test interpretation with radiology: I have reviewed the radiologist's reading. External Record Review External record reviewed: Outpatient record and Prior outpatient radiology Prescription Management I considered prescription management with: Other Discharge Plan Discharge Clinical Impression: Chronic tension headache Patient Disposition: Home, Self-Care Instructions: Tension Headache (ED) Additional Instructions: CT head normal return for any worsening symptoms or concerns start taking the hydroxyzine ask your doctor for referral to a neurologist Prescriptions: No Action cholecalciferol (vitamin D3) 50 mcg (2,000 unit) capsule 50 mcg PO DAILY Qty: 90 2RF celecoxib 200 mg capsule 200 mg PO BID Qty: 60 0RF albuterol sulfate 90 mcg/actuation HFA aerosol inhaler 2 puff inhalation Q4-6H PRN (Reason: shortness of breath or wheezing) Qty: 6.7 0RF ondansetron 4 mg tablet,disintegrating 4 mg PO DAILY PRN (Reason: nausea and vomiting) 5 Days Qty: 14 0RF mnghffleft-lxgcyznjnfxiw-emdm 50-325-40 mg tablet 1 tab PO Q6H PRN (Reason: pain (scale score 4-6)) Qty: 10 0RF ketorolac 10 mg tablet 10 mg PO TID PRN (Reason: pain) 5 Days Qty: 15 0RF albuterol sulfate 90 mcg/actuation aerosol powdr breath activated 2 inh inhalation Q4-6H PRN (Reason: shortness of breath or wheezing) Qty: 1 0RF benzonatate 100 mg capsule 100 mg PO BID PRN (Reason: cough) Qty: 20 0RF prednisone 20 mg tablet 40 mg PO DAILY 5 Days Qty: 10 0RF lorazepam 0.5 mg tablet 0.5 mg PO BEDTIME PRN (Reason: Anxiety) omeprazole 20 mg capsule,delayed release(DR/EC) 20 mg PO DAILY hydroxyzine HCl 25 mg tablet 25 - 50 mg PO TID PRN (Reason: anxiety) valacyclovir 500 mg tablet 500 mg PO DAILY baclofen 10 mg tablet 10 mg PO TID diclofenac sodium 1 % gel topical levothyroxine [Synthroid] 150 mcg tablet 150 mcg PO DAILY Qty: 30 5RF Print Language: Luxembourger
[2024-02-07] MEDS: LORazepam 2 MG/ML VIAL 0.5 MG IVPUSH (09:23)
[2024-02-07] MEDS: Ketorolac Tromethamine 15 MG/ML VIAL IVPUSH (09:24)
[2024-02-07] MEDS: dexAMETHasone sod phosphate 4 MG/ML VIAL 6 MG IVPUSH (09:25)
[2024-02-07] MEDS: Prochlorperazine Edisylate 10 MG/2 ML VIAL 5 MG IVPUSH (09:28)
[2024-02-07] MEDS: Magnesium Sulfate/H2O 2 GM/50 ML PIGGYBACK IV (09:32)
[2024-02-07 11:07] VITALS: BP 132/59; PULSE 70; RESP 18; TEMP 36.6; O2SAT 99
== END 2024-02-07 11:09 | disposition home or self-care (01) ==
PROVIDERS: Emergency Provider Emergency Medicine; PCP Internal Medicine
DX: G44.229 Chronic tension-type headache, not intractable (principal); J45.909 Unspecified asthma, uncomplicated; Z79.899 Other long term (current) drug therapy
CPT/HCPCS: 70450; 96365; 96366; 96375; 99284; J0737; J1100; J1885; J2060; J3475

== ENCOUNTER 2024-02-22 08:33 | Outpatient (REF) | payer OTHER, SELFPAY ==
--- NOTE | ~2024-02-22 | MM_ITS ---
EXAMINATION: MM SCREENING DIGITAL BREAST TOMOSYNTHESIS, BILATERAL CLINICAL INFORMATION: Screening. Asymptomatic. COMPARISON: Mammography: Comparison is made with available priors TECHNIQUE: Digital breast mammography with tomosynthesis is performed in both the craniocaudal and mediolateral oblique views along with computer-aided detection (CAD). FINDINGS: There are scattered areas of fibroglandular density (ACR BI-RADS breast composition Category b). There are no significant masses, abnormal calcifications, or other abnormalities. MM/MM tomosynthesis screening BI IMPRESSION: No mammographic evidence of malignancy. ASSESSMENT: BI-RADS BI-RADS 1 - Negative RECOMMENDATION: Routine annual mammography screening. 1 year F/U This examination should not preclude the clinical evaluation of a suspicious palpable abnormality. This patient's information was entered into a reminder system with a target due date for their next mammogram. Electronically signed by: Rachana Pablo DO 03/01/2024 04:07 PM [facility]
== END 2024-02-22 08:34 | disposition home or self-care (01) ==
LOC: HO.MAMMO 08:33
PROVIDERS: PCP Internal Medicine; Visit Provider Internal Medicine
DX: Z12.31 Encounter for screening mammogram for malignant neoplasm of breast (principal)
CPT/HCPCS: 77063; 77067

== ENCOUNTER → 2024-02-22 09:15 | Outpatient (BNV) | payer OTHER, SELFPAY | PROVIDERS: PCP Internal Medicine; Visit Provider Internal Medicine | DX: Z12.31 Encounter for screening mammogram for malignant neoplasm of breast (principal) | CPT/HCPCS: 77063; 77067 ==

== ENCOUNTER 2024-03-22 13:14 | Outpatient (AMB) | payer OTHER, SELFPAY ==
[2024-03-22 13:32] VITALS: BP 114/60; BMI 31.4
--- NOTE | 2024-03-22 13:32 | A.OFFVIS_ITS ---
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/DO NOT RS Plating Tank Operator Apprentice Required: Yes Plating Tank Operator Apprentice Language: Stone Gang Sawyer Services: Plating Tank Operator Apprentice Present (in person) Plating Tank Operator Apprentice Name: Glenys TAYLOR Information Interpreted: non-clinical & clinical Jewelry Sales Associate: Jewelry Sales Associate Present (Glenys TAYLOR) Accompanied by: Spouse Allergies diphenhydramine [From BENADRYL] Allergy (Intermediate, Verified 03/22/24 13:37) SEVERE LETHARGY acetaminophen [From Percocet] Adverse Reaction (Verified 03/22/24 13:37) Anxiety oxycodone [From Percocet] Adverse Reaction (Verified 03/22/24 13:37) Anxiety Post menopausal: Yes HPI Comments Details: Presenting for annual exam. No complaints. Last Pap/HPV was negative in 07/06 Last Mammogram was BI-RADS 1 in 03/10 No previous screening colonoscopy PFSH Medical History Panic attacks Asthma Depression Vitamin D deficiency Hypothyroidism Thyroid activity decreased Surgical History Hx of cervical polypectomy Hx of lithotripsy Hx of gastric bypass Family History Father Leukemia Cancer Mother Diabetes mellitus Hypertension Social History Household Members: Spouse Housing: Apartment Alcohol intake: former Comment: medicated with ketorolac and po tylenol Patient Tobacco Use Status: Never used Tobacco Current occupational status: unemployed Sexual orientation: Straight/Heterosexual Gender identity: Female Female Reproductive History Menstrual Age of Menarche: 12 Total pregnancies: 4 Full term: 4 Number of Living Children: 4 Date of last pap smear: 07/05/21 Date of Mammogram: 02/22/24 Review of Systems Const All systems reviewed & are unremarkable except as noted in HPI and below Card Reports as per HPI Resp Reports as per HPI GI Reports as per HPI and Reports no additional complaints Reports as per HPI Physical Exam Vital Signs: Last Vital Signs BP 114/60 03/22/24 13:32 BMI result Body Mass Index 31.4 Const General: cooperative, healthy appearing and comfortable Chest Chest palpation & inspection: normal inspection of the chest and normal palpation of entire chest wall Breast/axilla inspection: normal inspection of the breasts and normal inspection of the axillae Breast/axilla palpation: normal palpation of the breasts, normal palpation of the axillae and no axillary lymphadenopathy Resp Effort & Inspection: normal respiratory effort Auscultation: clear to auscultation bilaterally Percussion: percussion normal Cardio Palpation: normal PMI Rate: regular rate Rhythm: regular rhythm Heart sounds: no murmurs and no rubs Peripheral pulses: Peripheral pulses 2+ throughout GI Inspection: Yes normal to inspection Palpation (GI): Soft to palpation, nontender, no guarding, not rigid and No hepatosplenomegaly present Percussion: Yes normal to percussion Auscultation: normal bowel sounds Rectal Exam - Female: deferred General: Yes bladder normal to palpation External Female Exam: No lesion Speculum Exam - Vagina: normal appearance of the vagina, normal palpation, normal vaginal discharge and not erythematous Speculum Exam - Cervix: normal appearance of the cervix and normal palpation Bimanual exam- vagina & uterus: normal bimanual exam, normal palpation, uterine size normal, bladder normal to palpation, consistency normal and normal palpation Bimanual Exam- Adnexa, other: normal adnexae, no masses and no tenderness Assessment & Plan Assessment & Plan (1) Well woman exam with routine gynecological exam: Code(s): Z01.419 - Encounter for gynecological examination (general) (routine) without abnormal findings Category: Medical Plan: Co testing not indicated this year. Counseled the patient about the recommended dietary allowance of 1200 mg of Calcium & 600 IU of vitamin D. Instructions given the patient to schedule next screen Mammogram in 07/09. Explained to the patient the importance of screening colonoscopy since Rayo's cancer is a very common cancer, in addition discussed with the patient the benefits and risk of the procedure. Offered the patient referral to GI for screening colonoscopy, the patient would like think about it and get back to me . The patient was instructed to perform monthly self-breast exams and schedule annual exam in a year. All questions answered and the patient verbalized understanding. (2) Hot flashes: Code(s): R23.2 - [place] Category: Medical Plan: Discussed with the patient the options of treatment of hot flashes including hormonal replacement therapy, all the pros, cons, risks and benefits (benefits= prevention of hot flashes, atrophic vaginitis, osteoporosis, decrease colon ca risk; also discussed with the patient the risks of NC, Breast ca, DVT, PE, Strokes). In addition, discussed with the patient non hormonal treatment options for hot flashes treatment in surgical menopausal patient. Options discussed with the patient include the following: SSRI/SNRIs , difficulty has been demonstrated in multiple trials clinical response is more rapid (days) than typical response to SSRI for depression (weeks), they are equally effective in natural versus surgical menopause, they have similar modest benefit for hot flashes; Will start with Citalopram 10 mg per day and titrate the dose up as needed. Instructions given the patient to call with any concerns and schedule a follow up appointment in 1 month Orders: Orders MM tomosynthesis screening BI Today Z12.31 - Encounter for screening mammogram for malignant neoplasm of breast Referrals Gastroenterology Referral Z12.11 - Encounter for screening for malignant neop lasm of colon Medications: New citalopram 10 mg PO DAILY 1 month 30 tabs 0RF Coding Level of Care Code Est Pt Level 3 (28522) New Pt Prev Care 40-64y(19117) Diagnoses Well woman exam with routine gynecological exam Z01.419 Hot flashes R23.2
== END 2024-03-22 14:12 | disposition home or self-care (01) ==
PROVIDERS: PCP Internal Medicine; Visit Provider Obstetrics & Gynecology
DX: Z01.419 Encounter for gynecological examination (general) (routine) without abnormal findings (principal); R23.2 Flushing
CPT/HCPCS: 99396

== ENCOUNTER → 2024-03-22 13:14 | Outpatient (BNVA) | payer OTHER, SELFPAY | PROVIDERS: PCP Internal Medicine; Visit Provider Obstetrics & Gynecology | DX: Z01.419 Encounter for gynecological examination (general) (routine) without abnormal findings (principal); R23.2 Flushing | CPT/HCPCS: 99396 ==

== ENCOUNTER 2024-06-10 10:50 | Emergency (ER) | payer OTHER, SELFPAY ==
[2024-06-10] VITALS (7 sets, daily range): BP systolic 94–152; BP diastolic 55–86; PULSE 70–76; RESP 16–18; TEMP 36.8–37; O2SAT 98–100; BMI 27.5
--- NOTE | 2024-06-10 11:14 | ECG_ITS ---
Test Reason : syncope Blood Pressure : */* mmHG Vent. Rate : 72 BPM Atrial Rate : 72 BPM P-R Int : 154 ms QRS Dur : 70 ms QT Int : 422 ms P-R-T Axes : 51 22 52 degrees QTcB Int : 462 ms Normal sinus rhythm Cannot rule out Anterior infarct , age undetermined Abnormal ECG When compared with ECG of 23-Feb-2023 09:09, No significant change was found Referred By: Marlen Pearl Electronically Signed By: GIACOMO CASTANEDA
[2024-06-10] MEDS: Lactated Ringers 1,000 ML 999 ML IV (12:01)
[2024-06-10 12:04] LABS: MANUAL DIFF FLAG NO
[2024-06-10 12:09] LABS: Basophils Percent Auto 0.3 % (0-2); Eosinophils Percent Auto 0.9 % (0-4); Hematocrit 37.5 % (37.0-47.0); Hemoglobin 12.9 g/dl (12.0-16.0); Imm Gran Abs Auto 0.01 X10*3/uL (0.00-0.03); Imm Gran Pct Auto 0.3 % (0.0-0.4); Lymphocytes Percent Auto 29.8 % (20-40); Mean Corpuscular HGB Conc 34.4 g/dl (31.0-35.0); Mean Corpuscular Hemoglobin 29.9 pg (27.0-33.0); Mean Corpuscular Volume 86.8 fL (80.0-98.0); Mean Platelet Volume 11.2 fL (9.4-12.3); Monocytes Absolute Auto 0.3 X10*3/uL (0.1-1.2); Monocytes Percent Auto 8.3 % (2-11); Neutrophils Absolute Auto 2.1 x10*3/uL (2.0-8.3); Neutrophils Percent Auto 60.4 % (45-73); Platelet Count 123 X10*3/uL (160-400); Red Blood Count 4.32 X10*6/uL (4.20-5.50); Red Cell Distribution Width 13.2 % (11.0-16.0); White Blood Count 3.4 X10*3/uL (4.8-10.8)
--- NOTE | 2024-06-10 12:24 | ED.SYNCOPE ---
HPI - Syncope General Chief Complaint: Syncope Stated Complaint: WEAKNESS,NEAR SYNCOPE.FLU-LIKE PER EMS Time Seen by Provider: 06/10/24 12:13 Source: patient Limitations: no limitations History of Present Illness HPI narrative: This is 54 years old male presented to emergency department with a chief complaint of on lightheadedness nausea weakness malaise. Symptoms started about 4 days ago today she had a near syncopal episode. She has been using medication for weight loss for about 2 months, denies any chest pain shortness of breath Onset (ago): day(s) (4) Prodromal symptoms: none and nausea/vomiting Witnessed: No Injuries sustained associated with event: none Current symptoms: other (nausea) Related Data Home Medications ?Medication ?Instructions ?Recorded ?Confirmed lorazepam 0.5 mg tablet 0.5 mg PO BEDTIME PRN Anxiety 03/05/20 08/18/23 omeprazole 20 mg capsule,delayed 20 mg PO DAILY 06/08/21 08/18/23 release valacyclovir 500 mg tablet 500 mg PO DAILY 01/04/22 08/18/23 baclofen 10 mg tablet 10 mg PO TID 06/01/23 08/18/23 diclofenac sodium 1 % topical gel topical 06/01/23 08/18/23 Previous Rx's ?Medication ?Instructions ?Recorded albuterol sulfate 90 mcg/actuation 2 puff inhalation Q4-6H PRN 02/26/20 aerosol inhaler shortness of breath or wheezing #6.7 grams cholecalciferol (vitamin D3) 50 50 mcg PO DAILY #90 caps 11/29/22 mcg (2,000 unit) capsule celecoxib 200 mg capsule 200 mg PO BID #60 caps 01/30/23 ujjrgtyotq-xxxiszbkbjpvi-ssszdwic 1 tab PO Q6H PRN pain (scale score 02/16/23 50 mg-325 mg-40 mg tablet 4-6) #10 tabs ondansetron 4 mg disintegrating 4 mg PO DAILY PRN nausea and 02/16/23 tablet vomiting 5 days #14 tabs albuterol sulfate 90 mcg/actuation 2 inh inhalation Q4-6H PRN 02/23/23 breath activated powder inhaler shortness of breath or wheezing #1 ea benzonatate 100 mg capsule 100 mg PO BID PRN cough #20 caps 02/23/23 ketorolac 10 mg tablet 10 mg PO TID PRN pain 5 days #15 02/23/23 tabs Synthroid 150 mcg tablet 150 mcg PO DAILY #90 tabs 03/09/24 (levothyroxine) citalopram 10 mg tablet 10 mg PO DAILY 90 days #90 tabs 04/18/24 Allergies Allergy/AdvReac Type Severity Reaction Status Date / Time diphenhydramine Allergy Intermediate SEVERE Verified 06/10/24 11:12 [From BENADRYL] LETHARGY oxycodone [From Percocet] AdvReac Anxiety Verified 06/10/24 11:12 Review of Systems Constitutional: Constitutional: Reports no additional constitutional complaints ENT: Reports system reviewed and no additional complaints, except as documented Cardiovascular: Cardiovascular: Reports no additional cardiovascular complaints [facility] Past Medical History Source: unable to obtain Medical History Panic attacks Asthma Depression Vitamin D deficiency Hypothyroidism Thyroid activity decreased Surgical History Hx of cervical polypectomy Hx of lithotripsy Hx of gastric bypass Family History Family History Father Leukemia Cancer Mother Diabetes mellitus Hypertension Social History Social History Household Members: Spouse Housing: Apartment Alcohol intake: former Comment: medicated with ketorolac and po tylenol Patient Tobacco Use Status: Never used Tobacco Advance Directives: No Advance Directives Information Provided: Yes Current occupational status: unemployed Sexual orientation: Straight/Heterosexual Gender identity: Female Physical Exam Vital Signs: Vital Signs: Last Vital Signs Temp 98.6 F 06/10/24 11:09 Pulse 73 06/10/24 15:52 Resp 18 06/10/24 11:09 BP 152/86 H 06/10/24 15:52 Pulse Ox 100 06/10/24 11:09 O2 Del Method Room Air 06/10/24 11:09 BMI result Body Mass Index 27.5 No acute distress Const: General: cooperative Orientation/consciousness: patient oriented x3 HEENT: Head: Yes normal to inspection General nose exam: Normal external nose present Throat: Yes posterior oropharynx normal Neck: Neck: Yes normal visual inspection and Yes full ROM Chest: Chest palpation & inspection: normal inspection of the chest Resp: Effort & Inspection: normal respiratory effort Cardio: Palpation: normal PMI Rate: regular rate Rhythm: regular rhythm GI: Inspection: Yes normal to inspection Palpation (GI): Soft to palpation, not firm and nontender Skin: General skin exam: no rashes or lesions noted and elasticity normal Lesions: no lesions Rashes: no rashes Neuro: General: patient oriented x3 Cognition (Neuro): normal cognition Course Reevaluation(s) Reevaluation #1: On re-examination she is feeling better she is sitting up eating, labs within normal limit flu positive at this point I think she can be safely discharged home she is comfortable with the plan Time: 15:56 Medications Administered Discontinued Medications Generic Name Dose Route Start Last Admin Trade Name Freq PRN Reason Stop Dose Admin Lactated Ringer's 1,000 mls @ 999 mls/hr 06/10/24 11:14 06/10/24 13:18 Lr IV 06/10/24 12:14 Infused .Q1H1M ONE Infusion Sodium Chloride 1,000 mls @ 999 mls/hr 06/10/24 12:30 06/10/24 14:54 Ns IVCONT 06/10/24 13:30 999 mls/hr .Q1H1M MIGUELANGEL Administration Medical Decision Making Medical Decision Making [facility] Narrative: Patient presented with a near syncopal episode we will check labs administer IV fluid EKG Differential Diagnosis Differential Diagnoses: The differential diagnosis associated with the presentation includes Vasovagal episode/cardiac arrhythmia/dehydration Admission/Observation Consideration of admission/observation: Escalation of care including admission/observation considered Lab Data [facility] Lab Attestation statement: I reviewed the patient's lab results. 06/10/24 11:58 06/10/24 11:58 Labs: Lab Results 06/10/24 06/10/24 Range/Units 11:58 13:40 WBC 3.4 L (4.8-10.8) X10*3/uL RBC 4.32 (4.20-5.50) X10*6/uL Hgb 12.9 (12.0-16.0) g/dl Hct 37.5 (37.0-47.0) % MCV 86.8 (80.0-98.0) fL MCH 29.9 (27.0-33.0) pg MCHC 34.4 (31.0-35.0) g/dl RDW 13.2 (11.0-16.0) % Plt Count 123 L D (160-400) X10*3/uL MPV 11.2 (9.4-12.3) fL Immature Gran % (Auto) 0.3 (0.0-0.4) % Neut % (Auto) 60.4 (45-73) % Lymph % (Auto) 29.8 (20-40) % Giles % (Auto) 8.3 (2-11) % Eos % (Auto) 0.9 (0-4) % Baso % (Auto) 0.3 (0-2) % Lymph # (Auto) 1.0 L (1.2-4.9) X10*3/uL Giles # (Auto) 0.3 (0.1-1.2) X10*3/uL Eos # (Auto) 0.0 (0.0-0.4) X10*3/uL Baso # (Auto) 0.0 (0.0-0.2) X10*3/uL Abs Immat Gran (auto) 0.01 (0.00-0.03) X10*3/uL Absolute Neuts (auto) 2.1 (2.0-8.3) x10*3/uL Absolute Nucleated RBC 0.000 (0.0-0.012) X10*3/uL Nucleated RBC % (auto) 0.0 (0.0-0.2) /100WBC Sodium 143 (135-145) mmol/L Potassium 4.8 D (3.3-5.1) mmol/L Chloride 111 H (96-108) mmol/L Carbon Dioxide 26 (22-29) mmol/L Anion Gap 11 L (12-20) BUN 11 (9-16) mg/dL Creatinine 0.61 (0.5-1.4) mg/dL Estim Creat Clear Calc 102.9 Estimated GFR > 60 Random Glucose 82 (60-115) mg/dL Calcium 8.7 D (8.4-10.2) mg/dL Magnesium 1.9 (1.6-2.6) mg/dL Total Bilirubin 0.2 (0.0-1.0) mg/dL Direct Bilirubin < 0.2 (0.0-0.5) mg/dL AST 29 (5-31) U/L ALT 6 (0-31) U/L Alkaline Phosphatase 90 (39-117) U/L Troponin I High Sens < 2.7 (<3.5-17.0) ng/L Total Protein 6.2 L (6.5-8.0) g/dL Albumin 3.4 L (3.5-5.0) g/dL Lipase 20 (8-78) U/L Urine Color Yellow Urine Appearance Clear Urine pH 6.5 (5.0-9.0) Ur Specific [place] 1.010 (1.005-1.025) Urine Protein Negative (Neg-Trace) mg/dL Urine Glucose (UA) Negative (Negative) mg/dL Urine Ketones 15 (Negative) mg/dL Urine Blood Negative (Negative) Urine Nitrite Negative (Negative) Ur Leukocyte Esterase Negative (Negative) Influenza Type A (PCR) POSITIVE A (Negative) Influenza Type B (PCR) NEGATIVE (Negative) RSV RNA Qual (PCR) NEGATIVE (Negative) SARS-CoV-2 RNA (RT-PCR) NEGATIVE (Negative) Independent Interpretation I performed an independent interpretation of an: EKG Interpretation: Normal sinus rhythm rate [address]-T changes this is a normal electrocardiogram Discharge Plan Discharge Clinical Impression: Influenza Patient Disposition: Home, Self-Care Instructions: Influenza (DC) Additional Instructions: Follow-up with your primary care physician return if you worse drink plenty of fluids your blood work was normal you tested positive for the flu Prescriptions: No Action cholecalciferol (vitamin D3) 50 mcg (2,000 unit) capsule 50 mcg PO DAILY Qty: 90 2RF celecoxib 200 mg capsule 200 mg PO BID Qty: 60 0RF levothyroxine [Synthroid] 150 mcg tablet 150 mcg PO DAILY Qty: 90 0RF citalopram 10 mg tablet 10 mg PO DAILY 90 Days Qty: 90 0RF albuterol sulfate 90 mcg/actuation HFA aerosol inhaler 2 puff inhalation Q4-6H PRN (Reason: shortness of breath or wheezing) Qty: 6.7 0RF ondansetron 4 mg tablet,disintegrating 4 mg PO DAILY PRN (Reason: nausea and vomiting) 5 Days Qty: 14 0RF gswiflhlyg-zusjvbkwwmpyp-scww 50-325-40 mg tablet 1 tab PO Q6H PRN (Reason: pain (scale score 4-6)) Qty: 10 0RF ketorolac 10 mg tablet 10 mg PO TID PRN (Reason: pain) 5 Days Qty: 15 0RF albuterol sulfate 90 mcg/actuation aerosol powdr breath activated 2 inh inhalation Q4-6H PRN (Reason: shortness of breath or wheezing) Qty: 1 0RF benzonatate 100 mg capsule 100 mg PO BID PRN (Reason: cough) Qty: 20 0RF lorazepam 0.5 mg tablet 0.5 mg PO BEDTIME PRN (Reason: Anxiety) omeprazole 20 mg capsule,delayed release(DR/EC) 20 mg PO DAILY valacyclovir 500 mg tablet 500 mg PO DAILY baclofen 10 mg tablet 10 mg PO TID diclofenac sodium 1 % gel topical Print Language: Kenyan
[2024-06-10 12:32] LABS: Troponin-I High Sensitivity < 2.7 ng/L (<3.5-17.0)
[2024-06-10 12:46] LABS: Influenza A PCR POSITIVE (Negative); Influenza B PCR NEGATIVE (Negative); Resp Syncy Virus RNA Qual PCR NEGATIVE (Negative); SARS COV2 PCR INHOUSE NEGATIVE (Negative)
[2024-06-10 13:02] LABS: Alanine Aminotransferase 6 U/L (0-31); Albumin Level 3.4 g/dL (3.5-5.0); Alkaline Phosphatase 90 U/L (39-117); Anion Gap 11 (12-20); Aspartate Amino Transferase 29 U/L (5-31); Bilirubin Direct < 0.2 mg/dL (0.0-0.5); Bilirubin Total 0.2 mg/dL (0.0-1.0); Blood Urea Nitrogen 11 mg/dL (9-16); Calcium 8.7 mg/dL (8.4-10.2); Carbon Dioxide 26 mmol/L (22-29); Chloride 111 mmol/L (96-108); Creatinine Clr Calc Pharmacy 102.9; Estimated Glomerular Filt Rate > 60; Glucose Random 82 mg/dL (60-115); Lipase 20 U/L (8-78); Magnesium 1.9 mg/dL (1.6-2.6); Potassium 4.8 mmol/L (3.3-5.1); Sodium 143 mmol/L (135-145); Total Protein 6.2 g/dL (6.5-8.0)
--- OUTSIDE RECORDS SUMMARY | 2024-06-10 13:08 | XMS_ITS | Encounter Summary ---
Author Organization [employer] Address [address] [facility] [place] [address] Care Team Providers Care Glue Specialty Supervisor Name Role Phone Adriana Palencia MD Primary Care Provide r Reason for Visit * Reason Comments Med Refill Encounter Details Date Type Department Care Team ([facility] Contact Info) Description 03/10/2024 Refill [facility] [address] [place] [phone] Adriana Palencia MD [address] [place] [address] Vitamin B12 deficiency Social History Tobacco Use Types Packs/Day Years Used Date Smoking Tobacco: Never Passive Smoke Exposure: Never Smokeless Tobacco: Never Alcohol Use Standard Drinks/Week Comments Never 0 (1 standard drink = 0.6 oz pur e alcohol) Depression Answer Date Recorded Patient Health Questionnaire-9 Score 15 06/16/2023 Patient Health Questionnaire-9 Score 15 06/16/2023 Last PHQ-9: Questionnaire Data Not on file 0 06/16/2023 Housing Stability Answer Date Recorded What is your housing situation today? I have jasvir amado 01/30/[address] you li ve. Do you have problems with any of the following? None of the above 01/30/2023 Food Insecurity Answer Date Recorded Within the past 12 months, y ou worried that your food would run out before you got money to buy more: Never True 01/30/2023 Within the past 12 months,th e food you bought just didn't last and you didn't have enough money to get more: Never True Transportation Answer Date Recorded In the past 12 months, has l ack of transportation kept you from medical appts, meetings, work or from getting things needed for daily living? No 01/30/2023 Utilities Answer Date Recorded In the past 12 months, has t he electric, gas, oil or water company threatened to shut off services in your home? No 01/30/2023 Depression Answer Date Recorded Patient Health Questionnaire-2 Score 2 06/16/2023 Comments No Sex and Gender Information Value Date Recorded Sex Assigned at Female 02/14/2022 10:18 AM EDT Legal Sex Female 10:18 AM EDT Gender Identity Female 02/14/2022 10:18 AM EDT Sexual Orientation Choose not to disclose 2021 10:18 AM EDT documented as of this encounter Plan of Treatment Upcoming Encounters Date Type Department Care Team (Late st Contact Info) Description 06/10/2024 2:30 PM EST Telemedicine [facility] [address] [place] [phone] Adriana Palencia MD [address] [place] [phone] documented as of this encounter Visit Diagnoses Diagnosis Vitamin B12 deficiency Other B-complex deficiencies documented in this encounter Additional Health Concerns Assessment Noted Time PHQ-9 Depression Total Score: 15 024 9:44 AM EST documented as of this encounter Care Teams Glue Specialty Supervisor Relationship Specialty Start Date End Date Adriana Palencia MD [address] [place] [phone] PCP - General Family Medicine 06/01/18 documented as of this encounter
--- OUTSIDE RECORDS SUMMARY | 2024-06-10 13:08 | XMS_ITS | Encounter Summary ---
Author Organization [employer] Address [address] [place] [address] [address] [place] [address] Care Team Providers Care Motor Vehicle Light Assembler Name Role Phone Adriana Palencia MD Primary Care Provide r Reason for Visit * Reason Comments Med Refill Encounter Details Date Type Department Care Team (Late Contact Info) Description 12/02/2022 Refill [facility] [address] [place] [phone] Bree Ag MD [address] [place] [phone] Generalized anxiety disorder Social History Tobacco Use Types Packs/Day Years Used Date Smoking Tobacco: Never Passive Smoke Exposure: Never Smokeless Tobacco: Never Alcohol Use Standard Drinks/Week Comments Never 0 (1 standard drink = 0.6 oz pur e alcohol) Depression Answer Date Recorded Patient Health Questionnaire-9 Score 14 08/04/2022 Depression Answer Date Recorded Patient Health Questionnaire-2 Score 4 08/04/2022 Comments Unknown Sex and Gender Information Value Date Recorded Sex Assigned at Female 02/14/2022 10:18 AM EDT Legal Sex Female 10:18 AM EDT Gender Identity Female 02/14/2022 10:18 AM EDT Sexual Orientation Choose not to disclose 2021 10:18 AM EDT documented as of this encounter Plan of Treatment Upcoming Encounters Date Type Department Care Team (Late Contact Info) Description 06/10/2024 2:30 PM EST Telemedicine [facility] [address] [place] [phone] Adriana Palencia MD [address] [place], [place] [phone] documented as of this encounter Visit Diagnoses Diagnosis Generalized anxiety disorder documented in this encounter Additional Health Concerns Assessment Noted Time PHQ-9 Depression Total Score: 14 023 3:05 PM EDT documented as of this encounter Care Teams Motor Vehicle Light Assembler Relationship Specialty Start Date End Date Adriana Palencia MD [address] [place] [address] PCP - General Family Medicine 06/01/18 documented as of this encounter
--- OUTSIDE RECORDS SUMMARY | 2024-06-10 13:08 | XMS_ITS | Encounter Summary ---
Author Organization [employer] Address [address] [place] [address] [address] [place] [address] Care Team Providers Care Property Management Assistant Name Role Phone Adriana Palencia MD Primary Care Provide r Reason for Visit * Reason Comments Med Refill Encounter Details Date Type Department Care Team (Late Contact Info) Description 10/31/2022 Refill [facility] [address] [place] [address] [phone] Adriana Palencia MD [address] [place] [address] [phone] Social History Tobacco Use Types Packs/Day Years [...] Info) Description 06/10/2024 2:30 PM EST Telemedicine [facility] [address] [place] [phone] Adriana Palencia MD [address] [place] [address] [phone] documented as of this encounter Visit Diagnoses Not on filedocumented in this encounter Additional Health Concerns Assessment Noted Time PHQ-9 Depression Total Score: 14 023 3:05 PM EDT documented as of this encounter Care Teams Property Management Assistant Relationship Specialty Start Date End Date Adriana Palencia MD [address] [place] [address] PCP - General Family Medicine 06/01/18 documented as of this encounter
--- OUTSIDE RECORDS SUMMARY | 2024-06-10 13:08 | XMS_ITS | Clinical Summary ---
Author Organization [employer] Address [address] [place] [address] Care Team Providers Care Bridge Leverman Name Role Phone Adriana Palencia MD Primary Care Provide r Allergies Active Allergy Reactions Criticality Noted Date Comments Diphenhydramine 02/02/2021 Tramadol Dizziness 09/08/2022 Pt reports medication causes her to have hallucinations and dizziness Medications acetaminophen (Tylenol) 500 MG tablet take 2 tablet by oral route every 8 hours for 5 days, then as needed not to exceed 8 tablets per 24hrs Active ascorbic acid (Vitamin C) 500 MG tablet 1 (one) time each day. Active cyclobenzaprine (Flexeril) 10 MG tablet Take 1 tablet by mouth every 8 (eight) hours. Active ergocalciferol (Vitamin D-2) 1.25 MG (13698 UT) capsule take 1 capsule by oral route every week Active ferrous sulfate 325 (65 Fe) MG tablet 1 tablet every 12 (twelve) hours. Active zoster vaccine-recombin ant adjuvanted (Shingrix) 50 MCG/0.5ML vaccine Inject 0.5 mL into the shoulder, thigh, or buttocks. Active simethicone (Mylicon,Gas-X) 180 MG capsule take one with meals three times a day Active phenylephrine 0.25% 0.25-14-74.9 % ointment apply topically to skin as needed for hemorrhoids Active meloxicam (Mobic) 15 MG tablet Take 1 tablet by mouth 1 (one) time each day. 022 Active lidocaine (Lidoderm) 5 % patch Place 1 patch on the skin 1 (one) time each day. 022 Active ipratropium (Atrovent) 0.02 % nebulizer solution Inhale 2.5 mL every 6 (six) hours. 020 Active Lactobacillus-In ulin ([facility]) capsule take 1 capsule 2 times a day every 12 hours Active DULoxetine (Cymbalta) [address] capsuleIndicatio ns:Fibromyalgia TAKE 1 CAPSULE (30 MG) BY MOUTH IN THE MORNING. DO NOT CRUSH OR CHEW. 30 capsule 1 023 Active LORazepam (Ativan) 0.5 MG tablet TAKE 1 TABLET BY MOUTH EVERY DAY NEEDED FOR ANXIETY 30 tablet 023 Active hydrOXYzine HCl (Atarax) 10 MG tablet TOME 1 O 2 TABLETAS POR VIA ORAL DOS VECES AL KENAN CUANDO SEA NECESARIO PARA LA ANSIEDAD 60 tablet 3 023 Active cholecalciferol (Vitamin D-3) 50 MCG (1999 UT) capsule TOME LUKE C PSULA TODOS LOS D 023 Active predniSONE (Deltasone) 20 MG tablet TOME LUKE TABLETA TODOS LOS D POR SHEILA D 023 Active valACYclovir (Valtrex) 1 g tablet 1 tab po tid 21 tablet 023 Active gabapentin (Neurontin) 100 MG capsuleIndicatio ns:Chronic pain of right lower extremity Take 1 capsule (100 mg) by mouth at bedtime. 30 capsule 1 023 Active meclizine (Antivert) 25 MG tablet Take 1 tablet (25 mg) by mouth every 8 (eight) hours. 30 tablet 1 024 Active butalbital-aceta minophen-caffein e 50-325-40 MG tabletIndication s:Migraine without aura and without status migrainosus, not intractable TOME LUKE TABLETA CADA SEIS HORAS CUANDO SEA NECESARIO PARA EL DOLOR DE LETI 15 tablet 2 024 Active celecoxib (CeleBREX) 200 MG capsule TOME 1 C PSULA POR V A ORAL DOS VECES AL D A Active escitalopram (Lexapro) 5 MG tablet TOME LUKE TABLETA TODOS LOS D EN LA NOCHE Active ondansetron ODT (Zofran-ODT) 4 MG disintegrating tablet TOME LUKE TABLETA TODOS LOS D CUANDO SEA NECESARIO PARA LAS N USEAS Y V MITOS POR 5 D Active albuterol (2.5 MG/3ML) 0.083% nebulizer solutionIndicati ons:Mild intermittent asthma, unspecified whether complicated Take 3 mL by nebulization every 8 (eight) hours. 75 mL 2 Active albuterol (ProAir HFA) 108 (90 Base) MCG/ACT inhalerIndicatio ns:Mild intermittent asthma, unspecified whether complicated Inhale 2 puffs every 4 (four) hours. 18 g 1 Active cyanocobalamin ([facility] Vitamin B-12) 1000 MCG tabletIndication s:Vitamin B12 deficiency Take 1 tablet (1,000 mcg) by mouth Once per day. 30 tablet 3 024 2024 Active levothyroxine (Synthroid, Levoxyl) 137 MCG tabletIndication s:Acquired hypothyroidism TAKE 1 TABLET BY MOUTH EVERY DAY BEFORE BREAKFAST 90 tablet 1 Active Blood Pressure Monitoring (Blood Pressure Cuff) miscIndications: Elevated blood pressure reading 1 each Once daily. 1 each Active Diclofenac Sodium 1 % gel APPLY 2 GRAMS TOPICALLY TO AFFECTED AREA(S) TWICE DAILY NEEDED 100 g 2 Active omeprazole (PriLOSEC) [address] capsuleIndicatio ns:Gastroesophag eal reflux disease without esophagitis TAKE 1 CAPSULE BY MOUTH EVERY DAY BEFORE A MEAL 90 capsule 1 Active SUMAtriptan (Imitrex) 50 MG tablet Take 1 tablet (50 mg) by mouth if needed in the morning, at noon, and at bedtime for migraine. May repeat dose once in 2 hours if no relief. Do not exceed 2 doses in 24 hours. 9 tablet 1 024 2024 Active naproxen (Naprosyn) 500 MG tabletIndication s:Polyarthralgia Take 1 tablet (500 mg) by mouth every 12 (twelve) hours. 60 tablet 1 Active loratadine (Claritin) 10 MG tablet Take 1 tablet (10 mg) by mouth Once per day. 10 tablet 025 2025 Active baclofen (Lioresal) 10 MG tabletIndication s:Muscle spasm,Pain TOME 1 TABLETA POR VIA ORAL DENNYS VECES AL KENAN CUANDO SEA NECESARIO 270 tablet 025 Active Tirzepatide-Weig ht Management (Zepbound) 5 MG/0.5ML solution auto-injectorInd ications:Class 1 obesity due to excess calories with serious comorbidity and body mass index (BMI) of 32.0 to 32.9 in adult Inject 0.5 mL (5 mg) as directed 1 (one) time per week. INJECT ONE PEN (= 5 MG) SUBCUTANEOUSLY ONCE A WEEK 2 mL 1 025 Active valACYclovir (Valtrex) 500 MG tablet TAKE 1 TABLET BY MOUTH EVERY DAY 90 tablet 1 025 Active fluticasone (Flonase) 50 MCG/ACT nasal spray TAKE 1 SPRAY IN EACH NOSTRIL 2X A DAY SHAKE GENTLY, PRIME BEFORE 1ST USE CLEAN TIP AND REPLACE CAP 48 mL Active valACYclovir (Valtrex) 500 MG tablet TAKE 1 TABLET BY MOUTH EVERY DAY 90 tablet 1 024 2024 Discontinued baclofen (Lioresal) 10 MG tabletIndication s:Muscle spasm,Pain TOME 1 TABLETA POR VIA ORAL DENNYS VECES AL KENAN CUANDO SEA NECESARIO 270 tablet 024 2024 Discontinued fluticasone (Flonase) 50 MCG/ACT nasal spray TAKE 1 SPRAY IN EACH NOSTRIL 2X A DAY SHAKE GENTLY, PRIME BEFORE 1ST USE CLEAN TIP AND REPLACE CAP 48 mL 024 2024 Discontinued(R eorder (will not trigger notification to Pharmacy)) Tirzepatide-Weig ht Management (Zepbound) 2.5 MG/0.5ML solution auto-injectorInd ications:Class 1 obesity due to excess calories with serious comorbidity and body mass index (BMI) of 32.0 to 32.9 in adult Inject 0.5 mL (2.5 mg) under the skin 1 (one) time per week. 2 mL 024 2024 Discontinued Active Problems Problem Noted Date Diagnosed Date Allergic rhinitis 04/23/2024 Assessment & Plan (04/23/2024 5:15 PM EST): No systemic symptoms. Fluid in both ears clear, no sign of infection. -will trial x5 days of loratadine (Claritin) 10 MG tablet -ER precautions discussed. -Seek medical attention for worsening symptoms. Colon cancer screening 04/16/2024 Class 1 obesity due to exces s calories with serious comorbidity and body mass index (BMI) of 32.0 to 32.9 in adult 02/21/2024 Assessment & Plan (04/16/2024 1:35 PM EST): Today extensive discussion was done about life style modifications I advise healthy diet (low calorie) and cardiovascular exercise I will switch medication to zepbound Assessment & Plan (04/03/2024 12:51 PM EST): Counseling done Wegovy increased to 0.5mg weekly Assessment & Plan (02/21/2024 2:31 PM EST): Discussed re weight reduction options including exercise, life style modifications, diet and referral to lan specialist. Recommended to decrease soda and sugary beverage consumption, increase protein intake with meals (at least 1 portion of protein with each meal) to assist with satiety, increase dietary fiber Recommended at least 150 min/week of moderate intensity exercise. Started on Topamax, which also helps with migraines. Due to her co morbidities (LBP, asthma), she could be a good candidate for GLP1 meds ( Tirzepatide or semaglutide are covered under her insurance). FU with PCP. Elevated blood pressure reading 02/02/2024 Assessment & Plan (02/02/2024 12:18 PM EDT): RTC 2 weeks nurse visit for BP check Polyarthralgia 02/02/2024 Chronic fatigue 02/02/2024 Assessment & Plan (02/02/2024 12:18 PM EDT): C/w B12 supplements Other fatigue 12/13/2023 Chest discomfort 12/13/2023 Assessment & Plan (12/13/2023 2:06 PM EDT): Continue to follow with cardiology Sore throat 08/16/2023 Assessment & Plan (08/16/2023 4:04 PM EDT): Infectious labs negative - supportive care - increase fluids, honey/lemon/hilario tea - NSAIDs/Tylenol prn Chronic pain of right lower extremity 03/28/2023 Assessment & Plan (03/31/2023 12:13 PM EST): I will try gabapentin low dose Pain management referral Chronic pain of right knee 03/28/2023 Assessment & Plan (03/31/2023 12:14 PM EST): Knee brace will be prescribe Other constipation 03/28/2023 GERD (gastroesophageal reflux disease) Shingles (herpes zoster) polyneuropathy 01/19/20 Assessment & Plan (01/18/2023 4:02 PM EDT): -Valacyclovir given 01/18/2023, TID a day for 7 days Chronic left shoulder pain 08/04/2022 Assessment & Plan (08/04/2022 3:45 PM EDT): I will order xray for further assessment alternate hot cold compresses C/w acetaminophen alternate with ibuprofen Im suspecting fibromyagia I will start her on duloxetine RTC 3-4 weeks televisit Migraine without status migrainosus, not intract able 03/17/2022 Assessment & Plan (04/03/2024 12:51 PM EST): I advise to avoid migraine triggers like red wine, chocolate, cheese, strong perfumes Topomax was discontinue Continue with sumatriptan PRN Assessment & Plan (02/21/2024 2:49 PM EST): We discussed re avoid food and environmental migraine triggers. Also about cutting down lorazepam use and better rx of anxiety (see below). She will fu with her PCP Started on Topamax 50 mg at bedtime. She will use Imitrex 50-200 mg/d prn migraine. She can take a tylenol or ibuprofen with it x 1. We discussed re side effects including palpitations, dizziness, abd pain (ro intestinal ischemia?). Refer again to neurology (referral sent by PCP back on June), patient will call back prn if she doesn't get referral within 1mo. Assessment & Plan (06/16/2023 10:27 AM EST): I advise to avoid migraine triggers like red wine, chocolate, cheese, strong perfumes I will refill Fioricet I have tried preventive/prophylactic treatment but patient did not tolerate medications I will refer patient to neurology Assessment & Plan (03/31/2023 12:15 PM EST): I will discontinue sumatriptan and put her on fioricet Atypical chest pain 03/15/2022 Backache 03/15/2022 Chronic low back pain 03/15/2022 Fibromyalgia 03/15/2022 Assessment & Plan (06/16/2023 10:24 AM EST): Patient was educated about multidisciplinary approach for her condition, it was advise cardiovascular exercise, maintain hydration, treat anxiety/depression and take medications as directed Assessment & Plan (08/04/2022 3:45 PM EDT): Patient was educated about multidisciplinary approach for her condition, it was advise cardiovascular exercise, maintain hydration, treat anxiety/depression and take medications as directed Cymbalta will be started today Flank pain 03/15/2022 Neck pain 03/15/2022 Dizziness 03/15/2022 Assessment & Plan (11/28/2022 3:25 PM EDT): No evidence of diabetes on today's labs Rash 03/15/2022 Dyspnea on exertion 03/15/2022 Loss of hair 03/15/2022 Menorrhagia 03/15/2022 Plantar fasciitis 03/15/2022 Perimenopausal 03/15/2022 Mild intermittent asthma 03/15/2022 Postviral fatigue syndrome 03/15/2022 Pruritus 03/15/2022 Tendinitis of left rotator cuff 03/15/2022 Tinnitus 03/15/2022 Vertigo 03/15/2022 Assessment & Plan (11/10/2022 11:32 AM EDT): it could be triggered by anxiety, I also told her to try and cut down on lorazepam she will hold meclazine and start hydroxine for PRN dizziness as well 20-30 mg PRN MRI of the brain in June and she was seen by ENT FU for vestibular therapy counseld to decrease anxiety FU with PCP in 4-5 weeks High risk sexual behavior 03/15/2022 Post-operative state 03/15/2022 Initial patient encounter 03/15/2022 Paresthesia 03/26/2018 Generalized anxiety disorder 02/23/2015 Assessment & Plan (02/21/2024 2:43 PM EST): D/w patient re healthier coping mechanisms with anxiety, fu with therapist. Advised to check with PCP re other SSRIs/NSRIs to cotnrol anxiety and limit use of lorazepam that can also trigger more anxiety and migraines. FU with PCP Assessment & Plan (11/28/2022 3:25 PM EDT): Discussed that patient's anxiety eating and then response to high sugar foods is likely result of how sugars are processed in the gut (crashing after eating them) - to try to break into this cycle with nutrient dense and high fiber foods that will not lead to such a crash, or to not eat in the face of anxiety Assessment & Plan (11/10/2022 11:32 AM EDT): Continue following up with Ailyn King, counselor she is supposed to be on awaiting list to see psychiatrist start topamax 25-50mg qhs and Fu with PCP in 4-5 weeeks Gastroesophageal reflux disease 04/30/2013 Mixed anxiety and depressive disorder 07/04/2012 Assessment & Plan (06/16/2023 10:25 AM EST): Continue to follow with psychiatrist and therapist Acquired hypothyroidism 12/30/2011 Cobalamin deficiency 12/30/2011 Iron deficiency anemia 12/30/2011 Encounters Date Type Department Care Team Description 06/07/2024 Telephone [facility] [address] [place] [phone] Adriana Palencia MD Med Refill 06/06/2024 Telephone [facility] [address] [place] [address] [phone] Adriana Palencia MD Nurse Triage 06/05/2024 Telephone [facility] [address] [place] [address] [phone] Adriana Palencia MD Chart Prep 06/03/2024 Refill [facility] [address] [place] [address] [phone] Adriana Palencia MD 06/02/2024 Refill [facility] [address] [place] [address] [phone] Adriana Palencia MD 05/21/2024 Telephone [facility] [address] [place] [address] [phone] Adriana Palencia MD Med Refill 05/21/2024 Refill [facility] [address] [place] [address] [phone] Adriana Palencia MD Class 1 obesity due to excess calories with serious comorbidity and body mass index (BMI) of 32.0 to 32.9 in adult 05/17/2024 Refill [facility] [address] [place] [address] [phone] Adriana Palencia MD Muscle spasm; Pain 04/23/2024 5:00 PM EST Office Visit [facility] [address] [place] [address] [phone] Becky Holland MD Allergic rhinitis, unspecified seasonality, unspecified trigger (Primary Dx) 04/23/2024 Telephone [facility] [address] [place] [address] [phone] Adriana Palencia MD Nurse Triage 04/16/2024 9:30 AM EST Office Visit [facility] [address] [place] [address] [phone] Adriana Palencia MD Colon cancer screening (Primary Dx); Class 1 obesity due to excess calories with serious comorbidity and body mass index (BMI) of 32.0 to 32.9 in adult; Polyarthralgia 04/16/2024 Travel 04/04/2024 Patient Outreach [facility] [address] [place] [address] [phone] Adriana Palencia MD Pre-visit Planning (SDMA screening completed on 06/08/2023) 03/29/2024 10:45 AM EST Office Visit [facility] [address] [place] [address] [phone] Adriana Palencia MD Class 1 obesity due to excess calories with serious comorbidity and body mass index (BMI) of 32.0 to 32.9 in adult (Primary Dx); Migraine without aura and without status migrainosus, not intractable 03/29/2024 Travel 03/11/2024 Telephone [facility] [address] [place] [address] [phone] Alanis Shields MA Louis and Rei 03/10/2024 Refill [facility] [address] [place] [address] [phone] Adriana Palencia MD Vitamin B12 deficiency from Last 3 Months Immunizations Name Administration Dates Next Due Hep B, adult 03/19/2014, 4,04/30/2012,07/10,12/12/2007,06/22/2007 Moderna Covid-19 Vaccine 12+ 08/04/2020,07/08/19 21 Pneumococcal Polysaccharide PPSV23 03/19/2014 TD (adult), 2 Lf tetanus tox oid, preservative free, adsorbed 07/10/2008 Tdap 04/30/2013 Social History Tobacco Use Types Packs/Day Years Used Date Smoking Tobacco: Never Passive Smoke Exposure: Never Smokeless Tobacco: Never Tobacco Cessation:Counseling Given: Not Answered Alcohol Use Standard Drinks/Week Comments Never 0 [...] not to disclose 2021 10:18 AM EDT Last Filed Vital Signs Vital Sign Reading Time Taken Comments Blood Pressure 113/62 04/23/2024 4:59 PM EST Pulse 76 04/23/2024 4:59 PM EST Temperature 36.3 ??C (97.3 ??F) 04/23/2024 4:59 PM ES T Respiratory Rate 18 04/23/2024 4:59 PM EST Oxygen Saturation 98% 04/23/2024 4:59 PM EST Inhaled Oxygen Concentration - - Weight 78 kg (172 lb) 04/23/2024 4:59 PM EST Height 160 cm (5' 3 ) 04/16/2024 9:22 AM EST Body Mass Index 30.47 04/16/2024 9:22 AM EST Plan of Treatment Upcoming Encounters Date Type Department Care Team (Late st Contact Info) Description 06/10/2024 2:30 PM EST Telemedicine [facility] [address] [place] [phone] Adriana Palencia MD [address] [place] [phone] Health Maintenance Due Date Last Done Comments CT Colonography 1970 Colonoscopy 1970 Colorectal Cancer Screening 1970 FIT DNA/Cologuard 1970 FIT 1970 FOBT 1970 Sigmoidoscopy 1970 Pneumococcal Vaccine: 50+ Years (2 of 2 - PCV) 03/19/2015 03/19/2014 Zoster Vaccines (2 of 2) 04/03/2023 02/06/2023 DTaP/Tdap/Td Vaccines (2 - Td or Tdap) 04/30/2023 04/30/2013, 07/10/2008 COVID-19 Vaccine (3 - season) 2023 08/04/2020, 07/07/2020 Depression Monitoring (PHQ-9) 12/17/2023 06/16/2023, 06/16/2023 Influenza Vaccine (#1) 2023 02/06/2023 SDOH Screening 06/08/2024 06/08/2023 Depression Screening 06/15/2024 06/16/2023, 06/16/19 24 Mammogram 02/21/2025 02/22/2024, 05/2022, 08/27/2020, Additional history exists Alcohol/Substance Use Screening 03/29/2025 03/29/2024 Tobacco Screening 04/16/2025 04/16/2024 Cervical Cancer Screening 07/02/2026 HPV/Cotest 07/02/2026 07/02/2021, 06/15, 07/02/2021 Pap Smear 07/02/2026 07/02/2021 Lipid Panel 12/12/2028 12/13/2023, 12/2022, 01/12/2021 RSV Patients and Patients Aged 60 years or older (1 - 1-dose 75+ series) 2045 Hepatitis B Vaccines Completed 03/19/2014, 04/30/2013, 04/30/2012, Additional history exists HIV Screening Completed 12/13/2023, 12/17, 06/04/2019 Hepatitis C Screening Completed 12/13/2023, 021 HIB Vaccines Aged Out No longer eligi ble based on patient's age to complete this topic HPV Vaccines Aged Out No longer eligi ble based on patient's age to complete this topic Hepatitis A Vaccines Aged Out No long er eligible based on patient's age to complete this topic IPV Vaccines Aged Out No longer eligi ble based on patient's age to complete this topic Meningococcal Vaccine Aged Out No federico myriam eligible based on patient's age to complete this topic RSV under 20 months Aged Out No longe r eligible based on patient's age to complete this topic Rotavirus Vaccines Aged Out No longer eligible based on patient's age to complete this topic Procedures Procedure Name Priority Date/Time Associated Diagnosis Comments BI MAMMOGRAM SCREENING TOMOSYNTHESIS BILATERAL Routine 02/22/2024 8:40 AM EST HEPATITIS C VIRAL RNA, QUANTITATIVE, REAL-TIME PCR Routine 12/13/2023 12:18 PM EDT Other fatigue HIV 1/2 ANTIGEN/ANTIBODY, FOURTH GENERATION W/RFL Routine 12/13/2023 12:18 PM EDT Other fatigue LIPID PANEL WITH REFLEX TO DIRECT LDL Routine 12/13/2023 12:18 PM EDT Other fatigue HM PAP/HPV Routine 07/02/2021 from Last 3 Months or Most Recently Relevant to Health Maintenance Results * BI Mammogram Screening Tomosynthesis Bilateral (02/22/2024 8:40 AM EST) Anatomical Region Laterality Modality Breast Bilateral Mammography 02/22/2024 8:40 AM EST Narrative 03/01/2024 4:10 PM EST ? [facility] ? [address] ?[place] [address] ? Mammography Report ? Signed ? Patient: Nirmal Regan,Sudha N ?MR#: [id number] ?? [id number] ? : 1970 ?Acct:[id number] ? Age/Sex: 54 / F ?ADM Date: 02/22/24 ? Loc: HO.MAMMO ? Attending Dr: Adriana Sanches MD ? Ordering Physician: Adriana Palencia MD ?Results: ?? 1Negative ? Date of Service: 02/22/24 ?Follow Up: 1 Year From Orig ?? inal Mammogram ? Procedure(s): MM tomosynthesis screening BI ?? Accession Number(s): [id number] ? cc: Adriana Palencia MD ? EXAMINATION: ?? MM SCREENING DIGITAL BREAST TOMOSYNTHESIS, BILATERAL ? CLINICAL INFORMATION: ? Screening. Asymptomatic. ? COMPARISON: ?? Mammography: Comparison is made with available priors ? TECHNIQUE: ?? Digital breast mammography with tomosynthesis is performed in both the ?? craniocaudal and mediolateral oblique views along with computer-aided ?? detection (CAD). ? FINDINGS: ?? There are scattered areas of fibroglandular density (ACR BI-RADS breast ?? composition Category b). ? There are no significant masses, abnormal calcifications, or other ?? abnormalities. ? MM/MM tomosynthesis screening BI ?? IMPRESSION: ?? No mammographic evidence of malignancy. ? ASSESSMENT: ? BI-RADS BI-RADS 1 - Negative ? RECOMMENDATION: ?? Routine annual mammography screening. ? 1 year F/U ? This examination should not preclude the clinical evaluation of a ?? suspicious palpable abnormality. ? This patient's information was entered into a reminder system with a ?? target due date for their next mammogram. ? Electronically signed by: ??Rachana Pablo DO ??03/01/2024 04:07 PM EST ? Dictated By: ?Rachana Pablo DO ? Signed By: ?<Electronically signed by Rachana Pablo, DO in OV> ? 03/01/24 1607 ? DD/ 0840 ? TD/TT: 02/22/24 0903 ? Policy Loan Calculator: ? Procedure Note Donanila, Image - 03/01/2024 [facility] [address] [place] [address] Mammography Report Signed Patient: Sudha Dean NMR#: [id number] : 1970Acct:[id number] Age/Sex: 54 / FADM Date: 02/22/24 Loc: HO.MAMMO Attending Dr: Adriana Sanches MD Ordering Physician: Adriana Palencia MDResults: 1Negative Date of Service: 02/22/24Follow Up: 1 Year From Orig inal Mammogram Procedure(s): MM tomosynthesis screening BI Accession Number(s): [id number] cc: Adriana Palencia MD EXAMINATION: MM SCREENING DIGITAL BREAST TOMOSYNTHESIS, BILATERAL CLINICAL INFORMATION: Screening. Asymptomatic. COMPARISON: Mammography: Comparison is made with available priors TECHNIQUE: Digital breast mammography with tomosynthesis is performed in both the craniocaudal and mediolateral oblique views along with computer-aided detection (CAD). FINDINGS: There are scattered areas of fibroglandular density (ACR BI-RADS breast composition Category b). There are no significant masses, abnormal calcifications, or other abnormalities. MM/MM tomosynthesis screening BI IMPRESSION: No mammographic evidence of malignancy. ASSESSMENT: BI-RADS BI-RADS 1 - Negative RECOMMENDATION: Routine annual mammography screening. 1 year F/U This examination should not preclude the clinical evaluation of a suspicious palpable abnormality. This patient's information was entered into a reminder system with a target due date for their next mammogram. Electronically signed by: Rachana Pablo DO 03/01/2024 04:07 PM EST Dictated By: Rachana Pablo DO Signed By: <Electronically signed by Rachana Pablo DO in OV> 03/01/24 1607 DD/ 0840 TD/TT: 02/22/24 0903 Policy Loan Calculator: us Adriana Sanches MD IMG BI PROCEDURES Fin al Result * (ABNORMAL) Lipid Panel with Reflex to Direct LDL (12/13/2023 12:18 PM EDT) Triglycerides 52 <150 mg/dL [facility] Comment:Desirable Triglyceri de: less than 150 mg/dLBorderline High Triglyceride 150-199 mg/dLHigh Triglyceride: 200-499 mg/dLVery High Triglyceride: greater than or equal to 5OO mg/dL Cholesterol 187 <200 mg/dL [facility] Comment:Desirable Cholestero l: less than 200 mg/dLBorderline High Cholesterol: 200-239 mg/dLHigh Cholesterol: greater than 239 mg/dL LDL Cholesterol Calculated 109(H) <100 mg/dL [facility] Comment:Desirable LDL: less than 100 mg/dLNear Optimal/Above Optimal LDL: 110- 129 mg/dLBorderline High LDL: 130-159 mg/dLHigh LDL: 160-189 mg/dLVery High LDL: greater than or equal to 190 mg/dL HDL Cholesterol 68 >40 mg/dL [facility] Comment:Desirable HDL: great er than 40 mg/dL Note: This HDL assay may give artificially low results in patients with liver disease. Blood 12/13/2023 12:1 8 PM EDT 12/13/2023 1:25 PM EDT us Adriana Sanches MD LAB BLOOD ORDERABLES Final Result Performing Organization Address [facility]/ZIP Co de Phone Number [facility] [address] [place] [address] [phone] * Hepatitis C Viral RNA, Quantitative, Real-Time PCR (12/13/2023 12:18 PM EDT) [facility] Hepatitis C Viral Load <15 NOT DETECTED NOT DETECTED IU/mL [facility] HCV Log PCR <1.18 NOT DETECTED NOT DETECTED Log IU/mL [facility] Comment:For additional infor mation, please refer tohttp://education.Problemcity.com/faq/GLB77h9(This link is being provided for informational/educational purposes only.)THIS TEST WAS PERFORMED AT:[employer] [facility] [place] [phone] KENNEDY MD Blood 12/13/2023 12:1 8 PM EDT 12/13/2023 1:25 PM EDT us Adriana Sanches MD LAB BLOOD ORDERABLES Final Result Performing Organization Address [facility] Co de Phone Number [facility] [address] [place] [phone] * HIV-1/2 Antigen and Antibodies, Fourth Generation, with Reflexes (12/13/2023 12:18 PM EDT) [facility] HIV AB/AG Nonreactive Nonreactive [facility] Comment:HIV-1 p24 Ag and/or HIV-1/HIV-2 Ab not detected.A test result that is nonreactive does not exclude thepossibility of exposure to or infection with HIV-1 and/orHIV-2. Nonreactive results in this assay for individualswith prior exposure to HIV-1 and/or HIV-2 may be due toantigen and antibody levels that are below the limit ofdetection of this assay.The [employer] HIV Ag/Ab Combo assay result andsupplemental assay results should be interpreted inconjunction with the patient's clinical presentation,history and other laboratory results. If the results areinconsistent with clinical evidence, additional testing issuggested to confirm the result. Blood Venous blood specimen / Unknown 12/13/2023 12:18 PM EDT 12/13/2023 1:15 PM EDT us Adriana Sanches MD LAB BLOOD ORDERABLES Final Result [facility] [address] [place] [address] [phone] * Pap Smear (07/02/2021) Pap Negative for intraephithelial lesion or malignancy Negative for intraephithelial lesion or malignancy, Other HPV Undetected us Historical Provider HEALTH MAINTENANCE Final Result from Last 3 Months or Most Recently Relevant to Health Maintenance Insurance [facility] Care Teams Bridge Leverman Relationship Specialty Start Date End Date Adriana Palencia MD [address] [place] [phone] PCP - General Family Medicine 06/01/18
--- OUTSIDE RECORDS SUMMARY | 2024-06-10 13:08 | XMS_ITS | Encounter Summary ---
Author Organization [employer] Address [address] [place] [address] 7 [place] [address] Care Team Providers Care Fish Packer Name Role Phone Adriana Palencia MD Primary Care Provide r Reason for Visit * Reason Comments Med Refill Encounter Details Date Type Department Care Team (Late Contact Info) Description 11/02/2022 Refill [facility] [address] [place] [phone] Lilia Mcgregor FNP [address] [place] [address] Dept [place] [address] Social History Tobacco Use Types Packs/Day Years [...] Info) Description 06/10/2024 2:30 PM EST Telemedicine [facility] [address] [place] [address] Adriana Palencia MD [address] [place], [place] [phone] documented as of this encounter Visit Diagnoses Not on filedocumented in this encounter Additional Health Concerns Assessment Noted Time PHQ-9 Depression Total Score: 14 023 3:05 PM EDT documented as of this encounter Care Teams Fish Packer Relationship Specialty Start Date End Date Adriana Palencia MD [address] [place] [address] PCP - General Family Medicine 06/01/18 documented as of this encounter
--- OUTSIDE RECORDS SUMMARY | 2024-06-10 13:08 | XMS_ITS | Encounter Summary ---
Author Organization [employer] [facility] Address [address] [facility] 7t [place] [address] Care Team Providers Care Methodologist Name Role Phone dAriana Palencia MD Primary Care Provide r Encounter Details Date Type Department Care Team ([facility] Contact Info) Description 03/17/2022 Abstract [facility] [address] [place] [address] [phone] ProviderGurvinder MD Social History Tobacco Use Types Packs/Day Years Used Date Smoking Tobacco: Never Smokeless Tobacco: Never Alcohol Use Standard Drinks/Week Comments Never 0 (1 standard drink = 0.6 oz pur e alcohol) Comments Unknown Sex and Gender Information Value Date Recorded Sex Assigned at Female 02/14/2022 10:18 AM EDT Legal Sex Female 10:18 AM EDT Gender Identity Female 02/14/2022 10:18 AM EDT Sexual Orientation Choose not to disclose 2021 10:18 AM EDT COVID-19 Exposure Response Date Recorded In the last 10 days, have yo u been in contact with someone who was confirmed or suspected to have Coronavirus/COVID-19? No / Unsure 03/17/2022 12:15 PM EST documented as of this encounter Plan of Treatment Upcoming Encounters Date Type Department Care Team (Late Contact Info) Description 06/10/2024 2:30 PM EST Telemedicine [facility] [address] [place], [place] [phone] Adriana Palencia MD [address] [place] [address] documented as of this encounter Visit Diagnoses Not on filedocumented in this encounter Care Teams Methodologist Relationship Specialty Start Date End Date Adriana Palencia MD [address] [place] [address] PCP - General Family Medicine 06/01/18 documented as of this encounter
--- OUTSIDE RECORDS SUMMARY | 2024-06-10 13:08 | XMS_ITS | Encounter Summary ---
Author Organization [facility] Address [address] [place] [address] Care Team Providers Care Gear Keeper Name Role Phone Maribel Garcia [employer] Primary Care Provider [phone] Reason for Visit * Reason Comments Generalized Body Aches Fever Encounter Details Date Type Department Care Team (Late st Contact Info) Description 06/08/2024 1:54 PM EST - 06/08/2024 4:47 PM EST Emergency [facility] Emergency [address] [place] [address] Influenza (Primary Dx) Discharge Disposition: Home or Self Care Social History Tobacco Use Types Packs/Day Years Used Date Smoking Tobacco: Never Assessed Comments Unknown Sex and Gender Information Value Date Recorded Sex Assigned at Female 06/08/2024 3:07 PM EST Legal Sex Female 10:45 PM EST Gender Identity Female 06/08/2024 3:07 PM EST Sexual Orientation Straight 06/08/2024 3: 07 PM EST documented as of this encounter Last Filed Vital Signs Vital Sign Reading Time Taken Comments Blood Pressure 127/75 06/08/2024 12:44 PM EST Pulse 96 06/08/2024 12:44 PM EST Temperature 37.1 ??C (98.8 ??F) 06/08/2024 12:[address] Respiratory Rate 16 06/08/2024 12:44 PM EST Oxygen Saturation 100% 06/08/2024 12:44 PM EST Inhaled Oxygen Concentration - - Weight 72.6 kg (160 lb) 06/08/2024 12:44 PM EST Height 164 cm (5' 4.57 ) 06/08/2024 12:44 PM EST Body Mass Index 26.98 06/08/2024 12:44 PM EST documented in this encounter Discharge Instructions * Discharge Instructions* RADHA Moreno - 06/08/2024 3:02 PM EST You were evaluated emergency department today with cough and cold symptoms. You tested positive forinfluenza A. You body will fight off the virus on its own, you do not need antibiotics at this timeas antibiotics to not help viruses. For fever, body aches, headache, alternate tylenol and ibuprofen as follows: -Take 1000 mg of Tylenol (2 extra strength tabs) every 6 hours. 2 hours after your first dose of Tylenol, take 600 mg of ibuprofen (three 200 mg tabs) every 6 hours. Repeat as needed. Take Zofran (ondansetron) as prescribed as needed for nausea. If nausea persists past 3 days, follow-up with your primary care provider for further evaluation. Be sure to get plenty of rest, drink fluids, and wash hands frequently to help prevent spread of infection. For nasal and chest congestion, use mucnex as directed over the counter. Please followup with your primary care provider regarding this visit. Please return to the emergency department if you develop new or worsening symptoms. Thank you for coming to the [facility] Emergency Department today. Our entire team works together to provide you with the best care possible. Examination and treatment you received in the emergency department has been rendered on an EMERGENCY basis only. It is not intended to be a substitute for or an effort to provide complete medical care. You should follow-up with your primary care provider. Please report to your physician any new or remaining problems, because it is impossible to recognize and treat all elements of injury or illness in a single emergency department visit. If you do not have a primary care provider or require a referral, you may contact facilities listedbel. In the event that you're unable to obtain a followup appointment in a timely fashion, OR youare not getting any better, OR you are getting worse, OR you develop any symptoms of concern, please return here immediately for further evaluation. The emergency department is open 24 hours a day, 7days a week. Your discharge report is based on information that was available when you were in the emergency department. If you do not have a primary care provider, please contact one of the following to make arrangements to follow up. [facility] [place] [facility] [place] * Attachments The following attachments cannot be sent through Care Everywhere. * Influenza (Egyptian) documented in this encounter Medications at Time of Discharge ondansetron ODT (ZOFRAN-ODT) 4 mg disintegrating tablet Let 1 tablet dissolve under the tongue three times daily as needed for nausea or vomiting. 10 tablet 06/08/2024 5 documented as of this encounter Ordered Prescriptions Prescription Sig Dispense Quantity Refills Last Filled Start Date End Date ondansetron ODT (ZOFRAN-ODT) 4 mg disintegrating tablet Let 1 tablet dissolve under the tongue three times daily as needed for nausea or vomiting. 10 tablet 06/08/2024 5 documented in this encounter Discharge Disposition Disposition Code Departure Means Destination Comment s Home or Self Care documented in this encounter Progress Notes * Trell Lopez RN - 06/08/2024 12:43 PM EST Pt c/o bodyaches and fevers x3 days. * RADHA Moreno - 06/08/2024 12:39 PM EST Emergency Medicine Note Patient Name: Sudha Regan Initial Evaluation: 06/08/2024 : 1970 Patient's PCP: XANDER Montez Emergency Physician: RADHA Moreno History of Present Illness Chief Complaint: Chief Complaint Patient presents with Generalized Body Aches Fever HPI: This is a 54-year-old Egyptian-speaking female with no reported past medical history presenting today with 3 days of flulike symptoms. 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 Reports for the past 3 days she has had chills and sweats, diffuse bodyaches, nausea vomiting and a cough. She has been taking Tylenol without relief she has been taking 500 mg every 6 hours she has not taken any since yesterday. She reports decreased oral intake due to vomiting and nausea denies abdominal pain diarrhea. ROS: I have performed a ROS with the pertinent positives and negatives documented in the history ofpresent illness. Previous History Past Medical History: Diagnosis Date Asthma History reviewed. No pertinent surgical history. No family history on file. has No Known Allergies. No current facility-administered medications on file prior to encounter. No current outpatient medications on file prior to encounter. Physical Exam ED Triage Vitals [06/08/24 1244] Temp Heart Rate Resp BP 37.1 ??C (98.8 ??F) 96 16 127/75 SpO2 Temp src Heart Rate Source Patient Position 100 % -- -- -- BP Location FiO2 (%) -- -- General: Nontoxic-appearing, no acute distress. Awake, calm, cooperative. Eyes: PERRLA, EOMI. Nasal: Nasal congestion, no epistaxis Oropharynx: Oral mucosa is moist, uvula midline, no tonsillar enlargement or exudates, no lesions noted. No unilateral edema, managing secretions appropriately, normal phonation. Respiratory: lungs clear to auscultation bilaterally, no increased work of breathing. Cardiovascular: regular rate and rhythm MSK: Moving all extremities spontaneously. No edema or deformities noted, ambulatory Neurologic: Awake, alert, and oriented x3. No focal deficits Psychiatric: Appropriate mood and affect Results Labs Reviewed [id number], RSV, FLU A AND B QUALITATIVE RT-PCR, INTERNAL LAB - Abnormal Result Value Influenza A PCR Detected (*) Influenza B PCR Not Detected RSV PCR Not Detected SARS COV-2 Not Detected Narrative: Disclaimer: Testing was performed using the [employer] GeneXpert Xpress SARS-CoV-2 _Flu_RSV PLUS PCR assay. The manner in which this information is used to guide patient care is the responsibility of the healthcare provider. Results should be correlated with the clinical history, epidemiological data,and other data available to the clinician evaluating the patient. Negative results do not preclude infection. This test has been authorized by the FDA under an Emergency Use Authorization (EUA). Thistest is only authorized for the duration of time the declaration that circumstances exist justifying the authorization of the emergency use of in vitro diagnostic tests for detection of SARS-CoV-2 virus and/or diagnosis of COVID-19 infection under section 564 (b) (1) of the Act, 21 U.S.C 360bbb-3 (b) (1), unless the authorization is terminated or revoked sooner. Reference Range: Not Detected Fact sheet for Healthcare providers can be found at https://www.fda.gov/media/070613/download. Fact sheet for Healthcare patients can be found at https://www.fda.gov/media/268689/download. Abnormal Labs Reviewed [id number], RSV, FLU A AND B QUALITATIVE RT-PCR, INTERNAL LAB - Abnormal; Notable for the following components: Result Value Influenza A PCR Detected (*) All other components within normal limits Narrative: Disclaimer: Testing was performed using the [employer] GeneXpert Xpress SARS-CoV-2 _Flu_RSV PLUS PCR assay. The manner in which this information is used to guide patient care is the responsibility of the healthcare provider. Results should be correlated with the clinical history, epidemiological data,and other data available to the clinician evaluating the patient. Negative results do not preclude infection. This test has been authorized by the FDA under an Emergency Use Authorization (EUA). [employer] is only authorized for the duration of time the declaration that circumstances exist justifying the authorization of the emergency use of in vitro diagnostic tests for detection of SARS-CoV-2 virus and/or diagnosis of COVID-19 infection under section 564 (b) (1) of the Act, 21 U.S.C 360bbb-3 (b) (1), unless the authorization is terminated or revoked sooner. Reference Range: Not Detected Fact sheet for Healthcare providers can be found at https://www.fda.gov/media/141291/download. Fact sheet for Healthcare patients can be found at https://www.fda.gov/media/801227/download. No orders to display Medical Decision Making 54-year-old female presenting with 3 days of flulike symptoms. On exam patient alert and oriented no acute distress hemodynamically stable and afebrile. Cardiopulmonary exam is unremarkable. Oral mucosa is moist, uvula midline, no tonsillar enlargement or exudates, no lesions noted. No unilateral edema, managing secretions appropriately, normal phonation. Patient is positive for influenza A, recommend symptomatic management of fluid with Tylenol ibuprofen, Zofran and follow-up with PCP. Patientagreeable with this plan. Medications acetaminophen (TYLENOL) tablet 1,000 mg (1,000 mg oral Given 06/08/24 1458) Clinical Impressions as of 06/08/24 1657 Influenza Procedures Procedures Diagnosis 1. Influenza Disposition Discharge ED Prescriptions Medication Sig Dispense Start Date End Date Auth. Provider ondansetron ODT (ZOFRAN-ODT) 4 mg disintegrating tablet Let 1 tablet dissolve under the tongue three times daily as needed for nausea or vomiting. 10 tablet 06/08/2024 06/15/2024 RADHA Moreno Physician Attestation RADHA Moreno 06/08/24 1533 RADHA Moreno 06/08/24 1657 RADHA Moreno 06/08/24 1700 Cosigned by Neftaly Leal MD at 06/09/2024 7:41 AM EST documented in this encounter Plan of Treatment Not on file documented as of this encounter Procedures Procedure Name Priority Date/Time Associated Diagnosis Comments [id number], RSV, FLU A AND B QUALITATIVE RT-PCR, INTERNAL LAB STAT 06/08/2024 12:48 PM EST documented in this encounter Results * (ABNORMAL) [id number], RSV, Influenza A and B qualitative RT-PCR (06/08/2024 12:48 PM EST) Influenza A PCR Detected(A) Not Detected LAB MICROBIOLOGY METHOD 06/08/2024 1:55 PM EST [facility] Comment:This patient is posi tive for influenza A. If the patient is admitted, please order the Respiratory Virus Panel PCR ([facility] ID: [id number]) so our lab can subtype the influenza A, per CDC recommendations. Influenza B PCR Not Detected Not Detected LAB MICROBIOLOGY METHOD 06/08/2024 1:55 PM EST [facility] RSV PCR Not Detected Not Detected LAB MICROBIOLOGY METHOD 06/08/2024 1:55 PM EST [facility] SARS COV-2 Not Detected Not Detected LAB MICROBIOLOGY METHOD 06/08/2024 1:55 PM EST [facility] Swab Both anterior nares / Unknown Non-blood Collection / Unknown 06/08/2024 12:48 PM EST 06/08/2024 1:08 PM EST Narrative [facility] - 06/08/2024 1:55 PM EST Disclaimer: ??Testing was performed using the [employer] GeneXpert Xpress SARS-CoV-2 _Flu_RSV PLUS PCR assay. ??The manner in which this information is used to guide patient care is the responsibility of the healthcare provider. ??Results should be correlated with the clinical history, epidemiological data, and other data available to the clinician evaluating the patient. ??Negative results do not preclude infection. ??This test has been authorized by the FDA under an Emergency Use Authorization (EUA). ??This test is only authorized for the duration of time the declaration that circumstances exist justifying the authorization of the emergency use of in vitro diagnostic tests for detection of SARS-CoV-2 virus and/or diagnosis of COVID-19 infection under section 564 (b) (1) of the Act, 21 U.S.C 360bbb-3 (b) (1), unless the authorization is terminated or revoked sooner. ?? Reference Range: Not Detected Fact sheet for Healthcare providers can be found at https://www.fda.gov/media/368210/download. ?? Fact sheet for Healthcare patients can be found at https://www.fda.gov/media/533415/download. us Maged Rutledge MD LAB MICROBIOLOGY - GENERAL ORDERABLES Final Result [facility] [address] [place] [address], documented in this encounter Visit Diagnoses Diagnosis Influenza- Primary Influenza with other respiratory manifestations documented in this encounter Administered Medications Inactive Administered Medications - up to 3 most recent administrations Medication Order MAR Action Action Date Dose Rate Site acetaminophen (TYLENOL) tablet 1,000 mg 1,000 mg, oral, Once, On 06/08/24 at 1452, For 1 dose Given 06/08/2024 2:58 PM EST 1,000 mg documented in this encounter Active and Recently Administered Medications Times are shown in EST. Scheduled Medication Order 06/06/2024 06/07/2024 06/08/2024 acetaminophen (TYLENOL) tablet 1,000 mg (COMPLETED) 1,000 mg, oral, Once, On 06/08/24 at 1452, For 1 dose 1458 (Given - Provid er: Darcy Sifuentes RN) documented in this encounter Orders Medications Ordered That Bhanu ht Not Have Been Administered Count Last Ordered Date First Ordered Date acetaminophen (TYLENOL) tablet 1,000 mg 1 0 06/08/2024 documented in this encounter Additional Health Concerns Infection Onset Date Last Indicated Resolved Time Respiratory Rule-Out 06/08/2024 06/08/2024 025 1:55 PM EST COVID-19 Rule-Out 06/08/2024 06/08/2024 06/08/2024 1:55 PM EST Influenza 06/08/2024 06/08/2024 documented as of this encounter Care Teams Gear Keeper Relationship Specialty Start Date End Date Maribel Garcia FNP PCP - General Internal Medicine 04/11/13 documented as of this encounter
--- OUTSIDE RECORDS SUMMARY | 2024-06-10 13:08 | XMS_ITS | Encounter Summary ---
Author Organization [employer] [facility] Address [address] [facility] 7t [place] [address] Care Team Providers Care School Services Officer Name Role Phone Adriana Palencia MD Primary Care Provide r Encounter Details Date Type Department Care Team ([facility] Contact Info) Description 03/17/2022 Abstract [facility] [address] [place] [address] [phone] ProviderGurvinder MD Social History Tobacco Use Types [...] 06/10/2024 2:30 PM EST Telemedicine [facility] [address] [place], [place] [phone] Adriana Palencia MD [address] [place] [address] documented as of this encounter Visit Diagnoses Not on filedocumented in this encounter Care Teams School Services Officer Relationship Specialty Start Date End Date Adriana Palencia MD [address] [place] [address] PCP - General Family Medicine 06/01/18 documented as of this encounter
--- OUTSIDE RECORDS SUMMARY | 2024-06-10 13:08 | XMS_ITS | Encounter Summary ---
Author Organization [employer] Address [address] [place] [address] 7 [place] [address] Care Team Providers Care Sports Agent Name Role Phone Adriana Palencia MD Primary Care Provide r Reason for Visit * Reason Comments Med Refill Encounter Details Date Type Department Care Team ([facility] Contact Info) Description 11/24/[address] [facility] [address] [place] [address] [phone] Lilia Mcgregor FNP [address] [place] [address] Dept [place] [address] Migraine without aura and without status migrainosus, not intractable Social History Tobacco Use Types Packs/Day Years [...] Upcoming Encounters Date Type Department Care Team ([facility] Contact Info) Description 06/10/2024 2:30 PM EST Telemedicine [facility] [address] [place], [place] [phone] Adriana Palencia MD [address] [place] [address] documented as of this encounter Visit Diagnoses Diagnosis Migraine without aura and without status migrainosus, not intractable documented in this encounter Additional Health Concerns Assessment Noted Time PHQ-9 Depression Total Score: 14 023 3:05 PM EDT documented as of this encounter Care Teams Sports Agent Relationship Specialty Start Date End Date Adriana Palencia MD [address] [place] [phone] PCP - General Family Medicine 06/01/18 documented as of this encounter
--- OUTSIDE RECORDS SUMMARY | 2024-06-10 13:08 | XMS_ITS | Encounter Summary ---
Author Organization [employer] Address [address] [facility] 7t [place] [address] Care Team Providers Care Woodworking Machine Offbearer Name Role Phone Adriana Palencia MD Primary Care Provide r Encounter Details Date Type Department Care Team (Late Contact Info) Description 05/17/2022 Telephone [facility] [address] [place] [phone] Rosemary Espana RN [address] [place] [phone] Social History Tobacco Use Types Packs/Day Years [...] AM EDT documented as of this encounter Miscellaneous Notes * Telephone Encounter - Rosemary Espana RN - 05/17/2022 4:45 PM EST T triaged today, seen ER at [facility] on 05/14 for anxiety issues, chest pain, and ear buzzing.. please obtain ER records. documented in this encounter Plan of Treatment Upcoming Encounters Date Type Department Care Team (Late Contact Info) Description 06/10/2024 2:30 PM EST Telemedicine [facility] [address] [place] [address], [place] [address] dAriana Palencia MD [address] [place] [address] documented as of this encounter Visit Diagnoses Not on filedocumented in this encounter Care Teams Woodworking Machine Offbearer Relationship Specialty Start Date End Date Adriana Palencia MD [address] [place], [place] [phone] PCP - General Family Medicine 06/01/18 documented as of this encounter
--- OUTSIDE RECORDS SUMMARY | 2024-06-10 13:09 | XMS_ITS | Encounter Summary ---
Author Organization [employer] Address [address] [facility] [address] 7t [place] [address] Care Team Providers Care Slasher Hand Name Role Phone Adriana Palencia MD Primary Care Provide r Reason for Visit * Reason Onset Date Comments Chart Prep 06/05/2024 Encounter Details Date Type Department Care Team ([facility] Contact Info) Description 06/05/2024 Telephone [facility] [address] [place] [address] Adriana Palencia MD 230 [place] [address] Chart Prep Social History Tobacco Use Types Packs/Day Years [...] encounter Miscellaneous Notes * Telephone Encounter - Nola Pastrana MA - 06/05/2024 3:25 PM EST Chart Prep Labs: not applicable Images: not applicable Vaccines due: yes Referrals: Gastro & Neurology Screenings: colonoscopy Overdue care gaps: SDOH, PHQ-9 documented in this encounter Plan of Treatment Upcoming Encounters Date Type Department Care Team (Late st Contact Info) Description 06/10/2024 2:30 PM EST Telemedicine [facility] [address] [place] [address] Adriana Palencia MD [address] [place] [address] documented as of this encounter Visit Diagnoses Not on filedocumented in this encounter Additional Health Concerns Assessment Noted Time PHQ-9 Depression Total Score: 15 024 9:44 AM EST documented as of this encounter Care Teams Slasher Hand Relationship Specialty Start Date End Date Adriana Palencia MD [address] [place] [address] PCP - General Family Medicine 06/01/18 documented as of this encounter
--- OUTSIDE RECORDS SUMMARY | 2024-06-10 13:09 | XMS_ITS | Encounter Summary ---
Author Organization [employer] Address [address] [facility] [address] 7t [place] [address] Care Team Providers Care Wired Sweatband Cutter Name Role Phone Adriana Palencia MD Primary Care Provide r Encounter Details Date Type Department Care Team (Late st Contact Info) Description 03/14/2023 Abstract [facility] [address] [place] [address] Eliane Raman Social History Tobacco Use Types Packs/Day Years Used Date Smoking Tobacco: Never Passive Smoke Exposure: Never Smokeless Tobacco: Never Alcohol Use Standard Drinks/Week Comments Never 0 (1 standard drink = 0.6 oz pur e alcohol) Depression Answer Date Recorded Patient Health Questionnaire-9 Score 14 08/04/2022 Housing Stability Answer Date Recorded What is [...] Info) Description 06/10/2024 2:30 PM EST Telemedicine [facility] [address] [place] [address] Adriana Palencia MD [address] [place] [address] documented as of this encounter Visit Diagnoses Not on filedocumented in this encounter Additional Health Concerns Assessment Noted Time PHQ-9 Depression Total Score: 14 023 3:05 PM EDT documented as of this encounter Care Teams Wired Sweatband Cutter Relationship Specialty Start Date End Date Adriana Palencia MD [address] [place] [address] [phone] PCP - General Family Medicine 06/01/18 documented as of this encounter
--- OUTSIDE RECORDS SUMMARY | 2024-06-10 13:09 | XMS_ITS | Encounter Summary ---
Author Organization [employer] Address [address] [facility] [address] 7t [place] [address] Care Team Providers Care Non Destructive Evaluation Manager Name Role Phone Adriana Palencia MD Primary Care Provide r Reason for Visit * Reason Comments Med Refill Encounter Details Date Type Department Care Team ([facility] Contact Info) Description 06/03/2024 Refill [facility] [address] [place] [address] Adriana Palencia MD [address] [place] [address] Social History Tobacco Use Types Packs/Day Years [...] Info) Description 06/10/2024 2:30 PM EST Telemedicine [facility] [address] [place] [phone] Adriana Palencia MD [address] [place] [address] documented as of this encounter Visit Diagnoses Not on filedocumented in this encounter Additional Health Concerns Assessment Noted Time PHQ-9 Depression Total Score: 15 024 9:44 AM EST documented as of this encounter Care Teams Non Destructive Evaluation Manager Relationship Specialty Start Date End Date Adriana Palencia MD [address] [place] [phone] PCP - General Family Medicine 06/01/18 documented as of this encounter
--- OUTSIDE RECORDS SUMMARY | 2024-06-10 13:09 | XMS_ITS | Encounter Summary ---
Author Organization [employer] Address [address] [facility] [address] 7[address] [place] [address] Care Team Providers Care Administration Clerk Name Role Phone Adriana Palencia MD Primary Care Provide r Reason for Visit * Reason Comments Med Refill Encounter Details Date Type Department Care Team ([facility] st Contact Info) Description 05/21/2024 Refill [facility] [address] [place] [address] Adriana Palencia MD 230 [place] [address] Class 1 obesity due to excess calories with serious comorbidity and body mass index (BMI) of 32.0 to 32.9 in adult Social History Tobacco Use Types Packs/Day Years [...] encounter Miscellaneous Notes * Telephone Encounter - Tiffanie Domínguez LPN - 05/21/2024 3:54 PM EST PCP VAC. Next dose pended please review. Next appointment 06/10/24. documented in this encounter Plan of Treatment Upcoming Encounters Date Type Department Care Team (Late st Contact Info) Description 06/10/2024 2:30 PM EST Telemedicine [facility] [address] [place] [phone] Adriana Palencia MD [address] [place] [address] documented as of this encounter Visit Diagnoses Diagnosis Class 1 obesity due to excess calories with serious comorbidity and body mass index (BMI) of 32.0 to 32.9 in adult documented in this encounter Additional Health Concerns Assessment Noted Time PHQ-9 Depression Total Score: 15 024 9:44 AM EST documented as of this encounter Care Teams Administration Clerk Relationship Specialty Start Date End Date Adriana Palencia MD [address] [place] [phone] PCP - General Family Medicine 06/01/18 documented as of this encounter
--- OUTSIDE RECORDS SUMMARY | 2024-06-10 13:09 | XMS_ITS | Encounter Summary ---
Author Organization [employer] Address [address] [facility] [address] 7t [place] [address] Care Team Providers Care Police Crime Scene Technician Name Role Phone Adriana Palencia MD Primary Care Provide r Reason for Visit * Reason Onset Date Comments Med Refill 05/21/2024 Encounter Details Date Type Department Care Team ([facility] st Contact Info) Description 05/21/2024 Telephone [facility] [address] [place] [address] Adriana Palencia MD [address] [place] [address] Med Refill Social History Tobacco Use Types Packs/Day Years [...] Encounter - Tiffanie Domínguez LPN - 05/21/2024 3:55 PM EST Medication pended to provider. * Telephone Encounter - Johan Harris - 05/21/2024 3:50 PM EST TC from pt requesting medication refill. Medications needing refill : Tirzepatide-Weight Management (Zepbound) 2.5 MG/0.5ML solution auto-injector To be sent to: [facility]/pharmacy #[id number] [place] [address] - [address] [place] [address] documented in this encounter Plan of Treatment Upcoming Encounters Date Type Department Care Team (Late st Contact Info) Description 06/10/2024 2:30 PM EST Telemedicine [facility] [address] [place] [address] Adriana Palencia MD [address] [place], [place] [phone] documented as of this encounter Visit Diagnoses Not on filedocumented in this encounter Additional Health Concerns Assessment Noted Time PHQ-9 Depression Total Score: 15 024 9:44 AM EST documented as of this encounter Care Teams Police Crime Scene Technician Relationship Specialty Start Date End Date Adriana Palencia MD 230 [place] [address] PCP - General Family Medicine 06/01/18 documented as of this encounter
--- OUTSIDE RECORDS SUMMARY | 2024-06-10 13:09 | XMS_ITS | Encounter Summary ---
Author Organization [employer] Address [address] [place] [address] 7t [place] [address] Care Team Providers Care Closing Coordinator Name Role Phone Adriana Palencia MD Primary Care Provide r Reason for Visit * Reason Comments Med Refill Encounter Details Date Type Department Care Team (Late Contact Info) Description 01/10/2023 Refill [facility] [address] [place] [address] [phone] Adriana Palencia MD [address] [place] [address] [phone] Social History Tobacco Use Types Packs/Day Years [...] Info) Description 06/10/2024 2:30 PM EST Telemedicine [facility] [address] [place] [address] Adriana Palencia MD [address] [place] [address] [phone] documented as of this encounter Visit Diagnoses Not on filedocumented in this encounter Additional Health Concerns Assessment Noted Time PHQ-9 Depression Total Score: 14 023 3:05 PM EDT documented as of this encounter Care Teams Closing Coordinator Relationship Specialty Start Date End Date Adriana Palencia MD 230 [place] [address] PCP - General Family Medicine 06/01/18 documented as of this encounter
--- OUTSIDE RECORDS SUMMARY | 2024-06-10 13:09 | XMS_ITS | Encounter Summary ---
Author Organization [employer] Address [address] [facility] [address] 7t [place] [address] Care Team Providers Care Pattern Wheel Maker Name Role Phone Adriana Palencia MD Primary Care Provide r Reason for Visit * Reason Comments Med Refill Encounter Details Date Type Department Care Team ([facility] st Contact Info) Description 06/02/2024 Refill [facility] [address] [place] [address] Adriana Palencia MD [address] [place] [address] Social History Tobacco Use Types Packs/Day Years [...] Info) Description 06/10/2024 2:30 PM EST Telemedicine [facility] [address] [place] [address] Adriana Palencia MD [address] [place] [address] documented as of this encounter Visit Diagnoses Not on filedocumented in this encounter Additional Health Concerns Assessment Noted Time PHQ-9 Depression Total Score: 15 024 9:44 AM EST documented as of this encounter Care Teams Pattern Wheel Maker Relationship Specialty Start Date End Date Adriana Palencia MD [address] [place] [phone] PCP - General Family Medicine 06/01/18 documented as of this encounter
--- OUTSIDE RECORDS SUMMARY | 2024-06-10 13:09 | XMS_ITS | Encounter Summary ---
Author Organization [facility] Address [address] [place] [address] 7t [place] [address] Care Team Providers Care Outside Residential Sales Professional Name Role Phone Adriana Palencia MD Primary Care Provide r Encounter Details Date Type Department Care Team ([facility] Contact Info) Description 01/18/2023 Abstract [facility] [address] [place] [address] [phone] Eliane Raman Social History Tobacco Use Types [...] 06/10/2024 2:30 PM EST Telemedicine [facility] [address] [place] [address] [phone] Adriana Palencia MD 230 [place], [place] [phone] documented as of this encounter Procedures Procedure Name Priority Date/Time Associated Diagnosis Comments PAP/HPV Routine 07/02/2021 documented in this encounter Results * Hm Pap Smear (07/02/2021) Pap Negative for intraephithelial lesion or malignancy Negative for intraephithelial lesion or malignancy, Other HPV Undetected us Historical Provider HEALTH MAINTENANCE Final Result documented in this encounter Visit Diagnoses Not on filedocumented in this encounter Additional Health Concerns Assessment Noted Time PHQ-9 Depression Total Score: 14 023 3:05 PM EDT documented as of this encounter Care Teams Outside Residential Sales Professional Relationship Specialty Start Date End Date Adriana Palencia MD [address] [place] [phone] PCP - General Family Medicine 06/01/18 documented as of this encounter
--- OUTSIDE RECORDS SUMMARY | 2024-06-10 13:09 | XMS_ITS | Encounter Summary ---
Author Organization [employer] Address [address] [facility] [address] 7t [place] [address] Care Team Providers Care Employment Counselor Name Role Phone Adriana Palencia MD Primary Care Provide r Reason for Visit * Reason Comments Med Refill Encounter Details Date Type Department Care Team ([facility] st Contact Info) Description 05/17/2024 Refill [facility] [address] [place] [address] Adriana Palencia MD [address] [place] [address] Muscle spasm; Pain Social History Tobacco Use Types Packs/Day Years [...] Info) Description 06/10/2024 2:30 PM EST Telemedicine [facility] [address] [place] [phone] Adriana Palencia MD [address] [place] [address] documented as of this encounter Visit Diagnoses Diagnosis Muscle spasm Spasm of muscle Pain Generalized pain documented in this encounter Additional Health Concerns Assessment Noted Time PHQ-9 Depression Total Score: 15 024 9:44 AM EST documented as of this encounter Care Teams Employment Counselor Relationship Specialty Start Date End Date Adriana Palencia MD [address] [place] [phone] PCP - General Family Medicine 06/01/18 documented as of this encounter
--- OUTSIDE RECORDS SUMMARY | 2024-06-10 13:09 | XMS_ITS | Encounter Summary ---
Author Organization [employer] Address [address] [facility] [address] 7t [place] [address] Care Team Providers Care Molder Helper Name Role Phone Adriana Palencia MD Primary Care Provide r Reason for Visit * Reason Onset Date Comments Nurse Triage 06/06/2024 Encounter Details Date Type Department Care Team ([facility] st Contact Info) Description 06/06/2024 Telephone [facility] [address] [place] [address] Adriana Palencia MD [address] [place] [address] Nurse Triage Social History Tobacco Use Types Packs/Day Years [...] Telephone Encounter - Rosemary Espana RN - 06/06/2024 1:50 PM EST called pt to triage, spoke to pt through [employer] Animal Nutrition Consultant. pt states took her granddaughterto the ER yesterday and was exposed to flu. pt states mild congestion, cough, sore throat, chills, mild fevers, body aches, and fatigue. advised home care: rest, fluids, steam, humidifier, warm saltwater gargles, lozenges, OTC pain or fever reliever as needed, and call back if worsening or new concerns. advised no available appt to schedule at this time, and advised walk in center in the [facility]. given location, hours, and wait times cautions. pt understands and agrees with plan. insurance verified. Protocol Used: Influenza (Flu) - Seasonal (Adult) Protocol-Based Disposition: See in Office or Video Visit Today or Tomorrow Video visit offer not recorded Positive Triage Question: * Patient wants to be seen * All higher-acuity triage questions were negative Care Advice Discussed: * Influenza - [place] * Influenza - Symptoms * Influenza - How It is Spread * Influenza - General Care Advice * Influenza - Treatment With Antiviral Drugs * Influenza - Prevention With Vaccine * Reasons To Call Back - You have more questions * Telephone Encounter - Hannah Mayfield - 06/06/2024 11:41 AM EST Symptoms: Body Aches, Chills, Fever, Nausea But No Vomiting Outcome: Schedule an urgent appointment (within 1 hour) or talk to a nurse or provider soon Reason: Severe shivering The caller accepted this outcome. documented in this encounter Plan of Treatment Upcoming Encounters Date Type Department Care Team (Late st Contact Info) Description 06/10/2024 2:30 PM EST Telemedicine [facility] [address] [place] [address] Adriana Palencia MD [address] [place] [address] documented as of this encounter Visit Diagnoses Not on filedocumented in this encounter Additional Health Concerns Assessment Noted Time PHQ-9 Depression Total Score: 15 024 9:44 AM EST documented as of this encounter Care Teams Molder Helper Relationship Specialty Start Date End Date Adriana Palencia MD [address] [place] [phone] PCP - General Family Medicine 06/01/18 documented as of this encounter
--- OUTSIDE RECORDS SUMMARY | 2024-06-10 13:09 | XMS_ITS | Data Portability ---
Author Organization [employer] Address [address] [place] [address] Care Team Providers Care Loop Drier Operator Name Role Phone HIM [facility] OTHER [facility] OTHER Assessment Encounter Date Assessment Date Assessment LastModified by Organization Details LastModified Time 02/06/2024 02/06/2024 I provided real -time medical direction via phone for this encounter and was available for additional phone-based assistance as needed. I have reviewed and agree with the Assessment and Plan as documented by the Blackjack Supervisor. Patient given the opportunity to ask questions. Our service contacted for an assessment of: blood pressure check As per above, patient with h/o PEDRO PABLO and anxiety d/o. Wanted to checked and have her BP checked. Denies CP, SOB. Per software engineering supervisor on the scene, vitals are stable. Please see software engineering supervisor note for details guarding conversation and outcome Impression: PEDRO PABLO and panic Plan: Denies SI and is not alone. Supportive family at home. Also connected to PCP and Psychiatry. Understands importance of follow-up in getting help for this and also that if she experiences SI, to call 911. Allergies: Reviewed and updated to include tramadol and diphenhydramine PCP f/u: would benefit from f/u with psych for continued treatment for anxiety and panic We discussed the diagnostic uncertainty of home visits and the risk associated with this. In this case, the patient and I felt this to be an acceptable and reasonable amount of risk given the benefit of avoiding an ED visit. We discussed the need to seek care urgently/emergentl y in the setting of any new or worsening serious symptoms [email or web address] Not available 02/06/2024 10:17:26 Plan of Treatment Reminders Order Date Submit Date Provider Last Modified By Organization Details Last Modified Time Details Appointments None record ed. Lab None record ed. Referral None record ed. Procedures None record ed. Surgeries None record ed. Imaging None record ed. Medication Orders None record ed. Patient TargetsNo targets recorded. Patient InstructionsNo instructions recorded. Reason for Referral None Reported. Medical Equipment None Reported. Allergies Allergen ID Allergen Name Allergen Category Reaction Reaction Severity Criticality Documentation Date Start Date Code Code System Note Provider Name and Address Organization Details Recorded Time 6688 tramadol medicatio n Not available Not available Not available 02/06/2024 37749 RxNorm Melany Covarrubias MD [address] [facility],[address], [place], [address] , [facility] [employer] 4 09:58:03 6689 diphenhyd ramine medicatio n Not available Not available Not available 02/06/2024 3498 RxNorm Not Available [facility] - production 4 03:38:24 Medications Name Sig Start Date Stop Date Status Note LastModified by Organization Details LastModified Time blood pr monit omr [id number] USE TO CHECK BLOOD PRESSURE EVERY DAY DIRECTED active Not Available Not Available Not Available levothyroxin e 137 mcg tablet TOME 1 TABLETA POR V A ORAL TODOS LOS D ANTES DEL DESAYUNO active Not Available Not Available No t Available albuterol sulfate 2.5 mg/3 mL (0.083 %) solution for nebulization INHALE 1 VIAL VIA NEBULIZER EVERY 8 HOURS active Not Available Not Available No t Available ibuprofen 800 mg tablet TOME 1 TABLETA POR V A ORAL DENNYS VECES AL D A CUANDO SEA NECESARIO active Not Available Not Available No t Available Synthroid 150 mcg tablet TOME 1 TABLETA POR V A ORAL TODOS LOS D active Not Available Not Available No t Available sumatriptan 25 mg tablet PLEASE SEE ATTACHED FOR DETAILED DIRECTIONS active Not Available Not Available N ot Available prednisone 20 mg tablet active Not Available Not Available Not Available cyanocobalam in (vit B-12) 1,000 mcg tablet TOME 1 TABLETA POR V A ORAL TODOS LOS D active Not Available Not Available No t Available valacyclovir 500 mg tablet TOME 1 TABLETA POR V A ORAL TODOS LOS D active Not Available Not Available No t Available butalbital-a cetaminophen -caffeine 50 mg-325 mg-40 mg tablet TOME LKUE TABLETA CADA SEIS HORAS CUANDO SEA NECESARIO PARA EL DOLOR DE LETI active Not Available Not Available No t Available lorazepam 0.5 mg tablet TAKE 1 TABLET BY MOUTH ONCE A DAY NEEDED FOR SEVERE ANXIETY active Not Available Not Available No t Available meclizine 25 mg tablet TOME LUKE TABLETA CADA OCHO HORAS active Not Available Not Available No t Available baclofen 10 mg tablet TOME 1 TABLETA POR VIA ORAL DENNYS VECES AL KENAN CUANDO SEA NECESARIO active Not Available Not Available No t Available omeprazole 20 mg capsule,renetta yed release TOME 1 C PSULA POR V A ORAL TODOS LOS D BEFORE A MEAL active Not Available Not Available No t Available hydroxyzine HCl 25 mg tablet TOME LUKE TABLETA POR V A ORAL AL ACOSTARSE CUANDO SEA NECESARIO PARA LA ANSIEDAD AND SLEEP active Not Available Not Available No t Available mirtazapine 15 mg tablet TOME 1 TABLETA POR V A ORAL TODOS LOS D EN LA NOCHE active Not Available Not Available No t Available gabapentin 100 mg capsule TAKE 1 CAPSULE POR V A ORAL AL ACOSTARSE active Not Available Not Available No t Available albuterol sulfate HFA 90 mcg/actuatio n aerosol inhaler INHALE 2 PUFFS EVERY 4 HOURS. active Not Available Not Available No t Available ondansetron 4 mg disintegrati ng tablet TOME LUKE TABLETA TODOS LOS D CUANDO SEA NECESARIO PARA LAS N USEAS Y V MITOS POR 5 D active Not Available Not Available No t Available fluticasone propionate 50 mcg/actuatio n nasal spray,suspen wolf TAKE 1 SPRAY IN EACH NOSTRIL 2X A DAY SHAKE GENTLY, PRIME BEFORE 1ST USE CLEAN TIP AND REPLACE CAP active Not Available Not Available Not Available naproxen 500 mg tablet TAKE 1 TABLET BY MOUTH TWICE DAILY active Not Available Not Available No t Available escitalopram 5 mg tablet TOME LUKE TABLETA TODOS LOS D EN LA NOCHE active Not Available Not Available No t Available diclofenac 1 % topical gel APPLY 2 GRAMS TOPICALLY TO AFFECTED AREA(S) TWICE DAILY NEEDED active Not Available Not Available No t Available cholecalcife rol (vitamin D3) 50 mcg (2,000 unit) capsule TOME LUKE C PSULA TODOS LOS D active Not Available Not Available No t Available Vitals Date Recorded Oxygen saturation Oxygen saturation in Arterial blood by Pulse oximetry Body temperature Heart rate Respiratory rate Systolic blood pressure Diastolic blood pressure Provider Name and Address Organization Details Last Updated DateTime 4 99 % 99 % 98.2 [degF] 72 /min 16 /min 146 mm[Hg] 87 mm[Hg] Not Available [facility] - production 4 09:19:41 Social History None recorded. Functional Status None recorded. Mental Status None recorded. Family History Nothing Reported. Medical History No medical history recorded. Gynecological HistoryNo gynecological history recorded. Obstetrics History GPAL:G 0 P 0 0 0 0 Past Encounters Encounter ID Performer Location Encounter Start Date Encounter Closed Date Diagnosis/Indication Diagnosis SNOMED-CT Code Diagnosis ICD10 Code Diagnosis Note [id number] Melany Covarrubias MD [facility] - [facility] [address] [place] [phone] 02/06/2024 09:19:38 02/06/2024 10:34:09 Generalized anxiety disorder 38223616 F41.1 Health Concerns Section Related Observation LastModified by Organization Detai ls LastModified Time None Recorded Concern Status LastModified by Organization Details LastModified Time None Recorded Advance Directives Directive None Recorded Payers Encounter Date Sequence Insurance Name Policy Number Policy Orsa Covered Member ID Rosa Member ID Guarantor Name 02/06/2024 1 [facility] - DOS ON OR AFTER 2022 - DUAL ELIGIBLE - CUSTODIAL OPTIONS AND ONE CARE (MEDICARE REPLACEMENT/ADV ANTAGE - HMO) Sudha Kinney [id number] Sudha Kinney Notes Date Note Type Note Provider Name and Address Organization Details Recorded Time 02/06/2024 text/html HPI: Recent noted elevated BP today 142/87 confirms headache that is persistent. No Neuro deficit identified via triage. Has sore throat not significant pain but redness and swelling with difficulty swallowing saliva. ..................... ..................... ..................... ..................... ..................... ..................... ............... [facility] Nurse Triage Notes (Amber Durbin): Chief Complaints: Headache, Hypertension, ENT PMH: COPD/Asthma Allergies: Diphenhydramine Other Allergies: Tramadol Comments: CRC RN DID NOT NEED FURTHER INFO---- call to member as we cannot accommodate a visit this evening, call via Caterers [employer]per [phone], RED flags discussed, she is agreeable to a visit tomorrow 02/05- Blackjack Supervisor Organization Information for [facility] [employer]! Legal Name: [facility] [employer] Address: [address] [place] [address], [place] [address], Transporter Radiology: Kem Verdugo MD [facility] No.: [id number] Blackjack Supervisor POC Test Results from [facility] - LINETTE Test (09:36:50) Test: - Rapid influenza antigen (09:36:52) Flu: - Rapid strep test (09:36:53) Strep: - ..................... ..................... ..................... ..................... ..................... ..................... ............... Blackjack Supervisor Note From [facility]: Pt reports hx of anxiety and depression and has been off all of her medications to treat it for approx 4 months. Pt stopped meds without her prescribers knowledge. Pt is under the care of her PCP and a psychiatrist. Pt sts she has had increased stressors within her family over the past several weeks. Pt sts for the last week she expierences the feeling of her throat closing that lasts for approx 15-20 minutes. Pt sts these episodes occur 1-3 times per day. Pt denies any other associated sx and has not started any new medications or eaten any new food. Pt sts she discussed this with her PCP last week and they seemed to think that this is r/t her anxiety. Pt was emotional during the visit. She denies any thoughts to hurt herself or others. Pt? s VS were WNLs, afebrile. Unremarkable oropharynx exam. Lungs CTA. Rapid covid, flu and strep negative. I recommended that she contact her psychiatrists office this morning for an KENDAL appointment, pt? s son was present and stated he will make sure she calls. I explained that if any thoughts of harming herself or others present, to call 911 for an ED eval. ..................... ..................... ..................... ..................... ..................... ..................... ............... Disposition: Fulfilled Melnay Covarrubias MD [address] [facility],[address], [place], [address], [employer] 02/06/2024 10:17:46 OBGyn Episode No OBEpisode recorded.
--- OUTSIDE RECORDS SUMMARY | 2024-06-10 13:09 | XMS_ITS | Encounter Summary ---
Author Organization [employer] Address [address] [facility] [address] [place] [address] Care Team Providers Care Jig Boring Machine Operator For Metal Name Role Phone Adriana Palencia MD Primary Care Provide r Reason for Visit * Reason Comments Med Refill Encounter Details Date Type Department Care Team ([facility] Contact Info) Description 09/25/2022 Refill [facility] [address] [place] [address] Adriana Palencia MD [address] [place] [address] Fibromyalgia Social History Tobacco Use Types Packs/Day Years [...] suspected to have Coronavirus/COVID-19? No / Unsure 09/19/2022 2:24 PM EDT documented as of this encounter Plan of Treatment Upcoming Encounters Date Type Department Care Team ([facility] Contact Info) Description 06/10/2024 2:30 PM EST Telemedicine [facility] [address] [place] [address] Adriana Palencia MD [address] [place] [address] documented as of this encounter Visit Diagnoses Diagnosis Fibromyalgia Unspecified myalgia and myositis documented in this encounter Additional Health Concerns Assessment Noted Time PHQ-9 Depression Total Score: 14 023 3:05 PM EDT documented as of this encounter Care Teams Jig Boring Machine Operator For Metal Relationship Specialty Start Date End Date Adriana Palencia MD [address] [place] [address] PCP - General Family Medicine 06/01/18 documented as of this encounter
--- OUTSIDE RECORDS SUMMARY | 2024-06-10 13:09 | XMS_ITS | Encounter Summary ---
Author Organization [employer] Address [address] [facility] [address] [place] [address] Care Team Providers Care Compressed Air Pile Driver Operator Name Role Phone Adriana Palencia MD Primary Care Provide r Reason for Visit * Reason Comments Med Refill Encounter Details Date Type Department Care Team ([facility] st Contact Info) Description 04/14/2023 Refill [facility] [address] [place], [place] [phone] Heather Wei MD [address] [place] [address] Gastroesophageal reflux disease without esophagitis Social History Tobacco Use Types Packs/Day Years [...] Info) Description 06/10/2024 2:30 PM EST Telemedicine [facility] [address] [place] [address] [phone] Adriana Palencia MD [address] [place], [place] [phone] documented as of this encounter Visit Diagnoses Diagnosis Gastroesophageal reflux disease without esophagitis Esophageal reflux documented in this encounter Additional Health Concerns Assessment Noted Time PHQ-9 Depression Total Score: 14 023 3:05 PM EDT documented as of this encounter Care Teams Compressed Air Pile Driver Operator Relationship Specialty Start Date End Date Adriana Palencia MD [address] [place] [phone] PCP - General Family Medicine 06/01/18 documented as of this encounter
--- OUTSIDE RECORDS SUMMARY | 2024-06-10 13:09 | XMS_ITS | Encounter Summary ---
Author Organization [employer] Address [address] [facility] [address] [place] [address] Care Team Providers Care Plant Maintenance Supervisor Name Role Phone Adriana Palencia MD Primary Care Provide r Reason for Visit * Reason Onset Date Comments Med Refill 06/07/2024 Encounter Details Date Type Department Care Team ([facility] Contact Info) Description 06/07/2024 Telephone [facility] [address] [place] [address] Adriana Palencia MD [address] [place] [address] Med Refill Social History Tobacco Use Types [...] encounter Miscellaneous Notes * Telephone Encounter - Juliana Sweeney LPN - 06/07/2024 1:53 PM EST Medication requested below was discontinued. * Telephone Encounter - Johan Harris - 06/07/2024 1:47 PM EST TC from pt requesting medication refill. Medications needing refill : ibuprofen 800 MG tablet To be sent to: [facility]/pharmacy [address] [place] [address] documented in this encounter Plan of Treatment Upcoming Encounters Date Type Department Care Team (Late st Contact Info) Description 06/10/2024 2:30 PM EST Telemedicine [facility] [address] [place] [address] Adriana Palencia MD [address] [place] [address] documented as of this encounter Visit Diagnoses Not on filedocumented in this encounter Additional Health Concerns Assessment Noted Time PHQ-9 Depression Total Score: 15 024 9:44 AM EST documented as of this encounter Care Teams Plant Maintenance Supervisor Relationship Specialty Start Date End Date Adriana Palencia MD [address] [place] [address] PCP - General Family Medicine 06/01/18 documented as of this encounter
--- OUTSIDE RECORDS SUMMARY | 2024-06-10 13:09 | XMS_ITS | Clinical Summary ---
Author Organization [facility] Address [address] [place] [address] Phone Care Team Providers Care Business Continuity Analyst Name Role Phone Maribel Garcia XANDER Primary Care Provider [phone] Allergies No known active allergies Medications ondansetron ODT (ZOFRAN-ODT) 4 mg disintegrating tablet Let 1 tablet dissolve under the tongue three times daily as needed for nausea or vomiting. 10 tablet 06/16/19 25 Active Active Problems No known active problems Encounters Date Type Department Care Team Description 06/08/2024 1:54 PM EST - 06/08/2024 4:47 PM EST Emergency [facility] [address] [place] [address] Influenza (Primary Dx) Discharge Disposition: Home or Self Care from Last 3 Months Medical History Medical History Date Comments Asthma Social History Tobacco Use Types Packs/Day Years Used Date Smoking Tobacco: Never Assessed Comments Unknown Sex and Gender Information Value Date Recorded Sex Assigned at Female 06/08/2024 3:07 PM EST Legal Sex Female 10:45 PM EST Gender Identity Female 06/08/2024 3:07 PM EST Sexual Orientation Straight 06/08/2024 3: 07 PM EST Obstetrics History Last Filed Vital Signs Vital Sign Reading [...] Mass Index 26.98 06/08/2024 12:44 PM EST Plan of Treatment Health Maintenance Due Date Last Done Comments Breast Cancer Screening 1970 Cervical Cancer Screening: Pap Smear 1991 Pneumococcal Vaccine: 50+ Years (2 of 2 - PCV) 03/19/2015 03/19/2014 Pneumococcal Vaccine: Pediatrics (0 to 5 Years) and At-Risk Patients (6 to 64 Years) (2 of 2 - PCV) 03/19/2015 03/19/2014 Cholesterol Screening (Lipid Panel) 03/30/2022 Colorectal Cancer Screening: Colonoscopy 03/30/2022 Hepatitis C Screening 03/30/2022 Medicare Annual Wellness Visit 03/30/2022 Social Influencers of Health Screening 03/30/2022 Zoster Vaccines (2 of 2) 04/03/2023 02/06/2023 DTaP,Tdap,and Td Vaccines (3 - Td or Tdap) 04/30/2023 04/30/2013, 07/10/2008 COVID-19 Vaccine (3 - season) 2023 08/04/2020, 07/07/2020 Influenza Vaccine (#1) 2023 02/06/2023 Depression Screening 06/15/2024 06/16/2023 Hepatitis B Vaccines Completed 03/19/2014, 04/30/2013, 04/30/2012, Additional history exists HIV Screening Completed 12/13/2023 HIB Vaccines Aged Out No longer eligi [...] on patient's age to complete this topic MMR Vaccines Aged Out No longer eligi ble based on patient's age to complete this topic Meningococcal ACWY Vaccine Aged Out N o longer eligible based on patient's age to complete this topic Meningococcal B Vacine Aged Out No lo nger eligible based on patient's age to complete this topic RSV Immunization Patients Under 20 months Aged Out No longer eligible based on patient's age to complete this topic Varicella Vaccines Aged Out No longer eligible based on patient's age to complete this topic Procedures Procedure Name Priority Date/Time Associated Diagnosis Comments [id number], RSV, FLU A AND B QUALITATIVE RT-PCR, INTERNAL LAB STAT 06/08/2024 12:48 PM EST from Last 3 Months Results * (ABNORMAL) [id number], RSV, Influenza A and B qualitative RT-PCR (06/08/2024 12:48 PM EST) Influenza A PCR Detected(A) Not Detected LAB MICROBIOLOGY METHOD 06/08/2024 1:55 PM EST [facility] Comment:This patient is posi tive for influenza A. If the patient is admitted, please order the Respiratory Virus Panel PCR ([facility] ID: [id number]) so our lab can subtype the influenza A, per CDC recommendations. Influenza B PCR Not Detected Not Detected LAB MICROBIOLOGY METHOD 06/08/2024 1:55 PM EST [facility] RSV PCR Not Detected Not Detected LAB MICROBIOLOGY METHOD 06/08/2024 1:[address] [facility] SARS COV-2 Not Detected Not Detected LAB MICROBIOLOGY METHOD 06/08/2024 1:[address] [facility] Swab Both anterior nares / Unknown Non-blood Collection / Unknown 06/08/2024 12:48 PM EST 06/08/2024 1:08 PM EST [facility] - 06/08/2024 1:55 PM EST Disclaimer: ??Testing was performed using the [employer] GeneXpert Xpress SARS-CoV-2 _Flu_RSV PLUS PCR assay. [...] for Healthcare providers can be found at https://www.fda.gov/media/145118/download. ?? Fact sheet for Healthcare patients can be found at https://www.fda.gov/media/895299/download. us Maged Rutledge MD LAB MICROBIOLOGY - GENERAL ORDERABLES Final Result [facility] [address] [place] [address], from Last 3 Months Additional Health Concerns Infection Onset Date Last Indicated Influenza 06/08/2024 06/08/2024 Insurance [facility]IC[facility] Member Subscriber Plan / Payer (Ef fective 2024-Present) Name:Sudha Dean Relation to Subscriber:Self Name:Sudha Dean Payer ID:[id number] Group ID:Not on file Type:Not on file Address: [address] [facility] [place] [id number] Care Teams Business Continuity Analyst Relationship Specialty Start Date End Date Maribel Garcia FNP PCP - General Internal Medicine 04/11/13
--- OUTSIDE RECORDS SUMMARY | 2024-06-10 13:09 | XMS_ITS | Encounter Summary ---
Author Organization [employer] Address [address] [place] [address] Care Team Providers Care Clerical Aide Name Role Phone Adriana Palencia MD Primary Care Provide r Reason for Visit * Reason Comments Med Refill Encounter Details Date Type Department Care Team ([facility] st Contact Info) Description 08/31/2023 Refill [facility] [address] [place] [address] Adriana Palencia MD [address] [place] [address] Gastroesophageal reflux disease without esophagitis Social History [...] your housing situation today? I have jasvir maado 01/30/[address] you li [...] Patient Health Questionnaire-2 Score 2 06/16/2023 Comments Unknown Sex and Gender Information Value [...] Info) Description 06/10/2024 2:30 PM EST Telemedicine [facility] [address] [place] [address] Adriana Palencia MD [address] [place] [address] documented as of this encounter Visit Diagnoses Diagnosis Gastroesophageal reflux disease without esophagitis Esophageal reflux documented in this encounter Additional Health Concerns Assessment Noted Time PHQ-9 Depression Total Score: 15 024 9:44 AM EST documented as of this encounter Care Teams Clerical Aide Relationship Specialty Start Date End Date Adriana Palencia MD [address] [place] [phone] PCP - General Family Medicine 06/01/18 documented as of this encounter
--- OUTSIDE RECORDS SUMMARY | 2024-06-10 13:09 | XMS_ITS | Encounter Summary ---
Author Organization [employer] Address [address] [place] [address] Care Team Providers Care Cathode Washer Name Role Phone Adriana Palencia MD Primary Care Provide r Reason for Visit * Reason Onset Date Comments Letter Needed 04/18/2023 Encounter Details Date Type Department Care Team ([facility] Contact Info) Description 04/18/2023 Telephone [facility] [address] [place] [address] Adriana Palencia MD [address] [place] [address] Letter Needed Social History Tobacco Use Types Packs/Day Years [...] encounter Miscellaneous Notes * Telephone Encounter - Rosalind Tay - 04/18/2023 3:19 PM EST Tc from pt requesting a Letter from provider stating all her medical conditions including her chronic asthma in order to remove carpet from apartment due to the carpet having mold that is causing herasthma attacks. Please contact pt @ [phone] Dominican Speaker documented in this encounter Plan of Treatment Upcoming Encounters Date Type Department Care Team (Late st Contact Info) Description 06/10/2024 2:30 PM EST Telemedicine [facility] [address] [place] [address] Adriana Palencia MD [address] [place] [address] documented as of this encounter Visit Diagnoses Not on filedocumented in this encounter Additional Health Concerns Assessment Noted Time PHQ-9 Depression Total Score: 14 023 3:05 PM EDT documented as of this encounter Care Teams Cathode Washer Relationship Specialty Start Date End Date Adriana Palencia MD [address] [place] [address] PCP - General Family Medicine 06/01/18 documented as of this encounter
[2024-06-10 13:48] LABS: Appearance Urine Clear; Color Urine Yellow; Glucose Urine UA Negative (Negative); Leukocyte Esterase Urine Negative (Negative); Nitrite Urine Negative (Negative); PH 6.5 (5.0-9.0); Urine Blood Negative (Negative); Urine Ketones 15 mg/dL (Negative); Urine Protein Negative (Neg-Trace)
[2024-06-10] MEDS: 0.9 % Sodium Chloride 1,000 ML 999 ML IVCONT (14:54)
== END 2024-06-10 16:57 | disposition home or self-care (01) ==
PROVIDERS: Emergency Medicine; Emergency Provider Emergency Medicine; PCP Internal Medicine
DX: J10.1 Influenza due to other identified influenza virus with other respiratory manifestations (principal); R55 Syncope and collapse; R11.2 Nausea with vomiting, unspecified; R53.1 Weakness; R94.31 Abnormal electrocardiogram [ECG] [EKG]; Z79.899 Other long term (current) drug therapy; Z03.818 Encounter for observation for suspected exposure to other biological agents ruled out
CPT/HCPCS: 0241U; 80048; 80076; 81003; 83690; 83735; 84484; 85025; 93005; 96360; 96361; 99284; J7120

== ENCOUNTER → 2024-06-10 11:14 | Outpatient (BNV) | payer OTHER, SELFPAY | PROVIDERS: Emergency Provider Emergency Medicine; PCP Internal Medicine; Visit Provider Internal Medicine | DX: R94.31 Abnormal electrocardiogram [ECG] [EKG] (principal); R55 Syncope and collapse | CPT/HCPCS: 93010 ==

== ENCOUNTER 2024-07-29 13:59 | Outpatient (REF) | payer OTHER, SELFPAY ==
--- NOTE | ~2024-07-29 | XR_ITS ---
EXAMINATION: XR SHOULDER 2 OR MORE VIEWS RIGHT HISTORY: right shoulder pain and limited rom, suspect frozen shoulder COMPARISON: There are no prior studies available for comparison. FINDINGS: Three views of the right shoulder are submitted. Osseous mineralization is normal. There is no fracture or dislocation. The glenohumeral and acromioclavicular joint spaces are preserved. The soft tissues are unremarkable. XR/XR shoulder RT min 2V IMPRESSION: Unremarkable examination of the right shoulder. Electronically signed by: Ru Ross MD 07/29/2024 02:42 PM EDT
--- OUTSIDE RECORDS SUMMARY | 2024-07-29 16:17 | XMS_ITS | Encounter Summary ---
Author Organization [employer] Address [address] [place] [address] Care Team Providers Care Parts Room Associate Name Role Phone Adriana Palencia MD Primary Care Provide r Encounter Details Date Type Department Care Team ([facility] st Contact Info) Description 05/17/2022 Telephone [facility] [address] [place] [address] Rosemary Espana, JENNIFER [address] [place] [address] Social History Tobacco Use Types Packs/Day Years [...] EST T triaged today, seen ER [place] [facility] [place] for anxiety issues, chest pain, and ear buzzing.. please obtain ER records. documented in this encounter Plan of Treatment Not on file documented as of this encounter Visit Diagnoses Not on filedocumented in this encounter Care Teams Parts Room Associate Relationship Specialty Start Date End Date Adriana Palencia MD [address] [place] [address] PCP - General Family Medicine 06/01/18 documented as of this encounter
--- OUTSIDE RECORDS SUMMARY | 2024-07-29 16:17 | XMS_ITS | Encounter Summary ---
Author Organization [employer] Address [address] [place] [address] Care Team Providers Care Microbial Specialist Name Role Phone Adriana Palencia MD Primary Care Provide r Reason for Visit * Reason Comments Med Refill Encounter Details Date Type Department Care Team ([facility] st Contact Info) Description 04/14/2023 Refill [facility] MED[facility]INE [address] [place] [address] Heather Wei MD [address] [place] [address] Gastroesophageal reflux disease without esophagitis Social History [...] as of this encounter Plan of Treatment Not on file documented as of this encounter Visit Diagnoses Diagnosis Gastroesophageal reflux disease without esophagitis Esophageal reflux documented in this encounter Additional Health Concerns Assessment Noted Time PHQ-9 Depression Total Score: 14 023 3:05 PM EDT documented as of this encounter Care Teams Microbial Specialist Relationship Specialty Start Date End Date Adriana Palencia MD [address] [place] [address] PCP - General Family Medicine 06/01/18 documented as of this encounter
--- OUTSIDE RECORDS SUMMARY | 2024-07-29 16:17 | XMS_ITS | Encounter Summary ---
Author Organization [employer] Address [address] [facility] 7t [place] [address] Care Team Providers Care Honeycomb Decapper Name Role Phone Adriana Palencia MD Primary Care Provide r Reason for Referral * Consultation (Routine) - Pending Review Specialty Diagnoses / Procedures Referred By Contac t Referred To Contact Physical Therapy Diagnoses Paresthesia Acute pain of right shoulder Manju Jennings NP [address] [place] [address] Phone: tel: fax: Referral ID Status Reason Start Date Expiration Date Visits Requested Visits Authorized [id number] Pending Review Specialty Services Required 07/29/2024 07/29/2025 1 1 * Consultation (Routine) - Pending Review Specialty Diagnoses / Procedures Referred By Pili duong Referred To Contact Orthopaedic Surgery Diagnoses Paresthesia Acute pain of right shoulder Manju Jennings NP [address] [place] [address] Phone: tel: fax: Referral ID Status Reason Start Date Expiration Date Visits Requested Visits Authorized [id number] Pending Review Specialty Services Required 07/29/2024 07/29/2025 1 1 Reason for Visit * Reason Comments Arm Pain Finger Numbness Encounter Details Date Type Department Care Team ([facility] st Contact Info) Description 07/29/2024 1:20 PM EDT Office Visit [facility] [address] [place] [address] Manju Jennings, MARINE STRUCTURAL WELDER [address] [place] [address] Paresthesia (Primary Dx); Acute pain of right shoulder Social History Tobacco Use Types Packs/Day Years [...] AM EDT documented as of this encounter Last Filed Vital Signs Vital Sign Reading Time Taken Comments Blood Pressure 109/66 07/29/2024 1:01 PM EDT Pulse 68 07/29/2024 1:01 PM EDT Temperature 36.3 ??C (97.4 ??F) 07/29/2024 1:01 PM ED T Respiratory Rate 17 07/29/2024 1:01 PM EDT Oxygen Saturation 97% 07/29/2024 1:01 PM EDT Inhaled Oxygen Concentration - - Weight 72 kg (158 lb 12.8 oz) 07/29/2024 1:01 PM EDT Height - - Body Mass Index 28.13 07/02/2024 9:52 AM EDT documented in this encounter Progress Notes * Manju Jennings NP - 07/29/2024 1:20 PM EDT Subjective: Sudha Regan is a 54 y.o. female who presents to the office for a sick visit. HPI Left arm is good, was dx with froze shoulder Right shoulder and hand, 10 days of shoulder pain on right side similair to left, swelling of righthand this morning spontaneous swelling of right hand which is going down Most pain with external rotation Had been lifting weights before these symptoms but no fall Patient Active Problem List Diagnosis Acquired hypothyroidism Atypical chest pain Backache Chronic low back pain Fibromyalgia Flank pain Neck pain Cobalamin deficiency Dizziness Rash Dyspnea on exertion Gastroesophageal reflux disease Generalized anxiety disorder Iron deficiency anemia Loss of hair Menorrhagia Mixed anxiety and depressive disorder Paresthesia Plantar fasciitis Perimenopausal Mild intermittent asthma Postviral fatigue syndrome Pruritus Tendinitis of left rotator cuff Tinnitus Vertigo High risk sexual behavior Post-operative state Initial patient encounter Migraine without status migrainosus, not intractable Chronic left shoulder pain Shingles (herpes zoster) polyneuropathy Chronic pain of right lower extremity Chronic pain of right knee Other constipation GERD (gastroesophageal reflux disease) Sore throat Other fatigue Chest discomfort Elevated blood pressure reading Polyarthralgia Chronic fatigue Class 1 obesity due to excess calories with serious comorbidity and body mass index (BMI) of 32.0 to 32.9 in adult Colon cancer screening Allergic rhinitis Overweight with body mass index (BMI) of 28 to 28.9 in adult Acute pain of right shoulder Review of Systems Constitutional: Negative for activity change and appetite change. Genitourinary: Negative for difficulty urinating. Musculoskeletal: Positive for arthralgias and myalgias. Allergies Allergen Reactions Diphenhydramine Tramadol Dizziness Pt reports medication causes her to have hallucinations and dizziness Objective: Visit Vitals BP 109/66 (BP Location: Left arm, Patient Position: Sitting, BP Cuff Size: Adult) Pulse 68 Temp 97.4 ??F (36.3 ??C) (Temporal) Resp 17 Wt 158 lb 12.8 oz (72 kg) SpO2 97% BMI 28.13 kg/m?? OB Status Postmenopausal Smoking Status Never BSA 1.79 m?? Physical Exam Constitutional: Appearance: Normal appearance. She is obese. Cardiovascular: Rate and Rhythm: Regular rhythm. Heart sounds: Normal heart sounds. Musculoskeletal: Right shoulder: Tenderness present. No swelling, deformity or bony tenderness. Decreased range of motion. Decreased strength. 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 Ortho, x-ray ordered, if longer wait for ortho will order mri Relevant Orders Referral to Orthopaedic Surgery XR Shoulder 2+ Views Right Referral to Physical Therapy Current Outpatient Medications Medication Sig Dispense Refill acetaminophen (Tylenol) 500 MG tablet take 2 tablet by oral route every 8 hours for 5 days, then asneeded not to exceed 8 tablets per 24hrs albuterol (2.5 MG/3ML) 0.083% nebulizer solution Take 3 mL by nebulization every 8 (eight) hours. 75 mL 2 albuterol (ProAir HFA) 108 (90 Base) MCG/ACT inhaler Inhale 2 puffs every 4 (four) hours. 18 g 1 ascorbic acid (Vitamin C) 500 MG tablet 1 (one) time each day. baclofen (Lioresal) 10 MG tablet TOME 1 TABLETA POR VIA ORAL DENNYS VECES AL KENAN CUANDO SEA [id number] tablet 0 Blood Pressure Monitoring (Blood Pressure Cuff) misc 1 each Once daily. 1 each 0 jeulsaneme-nypnlisvlneud-qxhxicoi 50-325-40 MG tablet TOME LUKE TABLETA CADA SEIS HORAS CUANDO SEA NECESARIO PARA EL DOLOR DE LETI 15 tablet 2 celecoxib (CeleBREX) 200 MG capsule TOME 1 C PSULA POR V A ORAL DOS VECES AL D A cholecalciferol (Vitamin D-3) 50 MCG (2000 UT) capsule TOME LUKE C PSULA TODOS LOS D cyanocobalamin ([employer] Vitamin B-12) 1000 MCG tablet Take 1 tablet (1,000 mcg) by mouth Once per day. 30 tablet 3 cyclobenzaprine (Flexeril) 10 MG tablet Take 1 tablet by mouth every 8 (eight) hours. Diclofenac Sodium 1 % gel APPLY 2 GRAMS TOPICALLY TO AFFECTED AREA(S) TWICE DAILY NEEDED 100 g 2 DULoxetine (Cymbalta) [address] capsule TAKE 1 CAPSULE (30 MG) BY MOUTH IN THE MORNING. DO NOT CRUSHOR CHEW. 30 capsule 1 ergocalciferol (Vitamin D-2) 1.25 MG (00379 UT) capsule take 1 capsule by oral route every week escitalopram (Lexapro) 5 MG tablet TOME LUKE TABLETA TODOS LOS D EN LA NOCHE ferrous sulfate 325 (65 Fe) MG tablet 1 tablet every 12 (twelve) hours. gabapentin (Neurontin) 100 MG capsule Take 1 capsule (100 mg) by mouth at bedtime. 30 capsule 1 hydrOXYzine HCl (Atarax) 10 MG tablet TOME 1 O 2 TABLETAS POR VIA ORAL DOS VECES AL KENAN CUANDO SEA NECESARIO PARA LA ANSIEDAD 60 tablet 3 ipratropium (Atrovent) 0.02 % nebulizer solution Inhale 2.5 mL every 6 (six) hours. Lactobacillus-Inulin ([facility] [employer] [facility]) capsule take 1 capsule 2 times a day every 12 hours levothyroxine (Synthroid, Levoxyl) 137 MCG tablet TAKE 1 TABLET BY MOUTH EVERY DAY BEFORE [id number] tablet 1 lidocaine (Lidoderm) 5 % patch Place 1 patch on the skin 1 (one) time each day. loratadine (Claritin) 10 MG tablet Take 1 tablet (10 mg) by mouth Once per day. 10 tablet 0 LORazepam (Ativan) 0.5 MG tablet TAKE 1 TABLET BY MOUTH EVERY DAY NEEDED FOR ANXIETY 30 tablet 0 meclizine (Antivert) 25 MG tablet Take 1 tablet (25 mg) by mouth every 8 (eight) hours. 30 tablet 1 meloxicam (Mobic) 15 MG tablet Take 1 tablet by mouth 1 (one) time each day. omeprazole (PriLOSEC) [address] capsule TAKE 1 CAPSULE BY MOUTH EVERY DAY BEFORE A MEAL 90 capsule 1 ondansetron ODT (Zofran-ODT) 4 MG disintegrating tablet TOME LUKE TABLETA TODOS LOS D CUANDO SEA NECESARIO PARA LAS N USEAS Y V MITOS POR 5 D phenylephrine 0.25% 0.25-14-74.9 % ointment apply topically to skin as needed for hemorrhoids predniSONE (Deltasone) 20 MG tablet TOME LUKE TABLETA TODOS LOS D POR SHEILA D simethicone (Mylicon,Gas-X) 180 MG capsule take one with meals three times a day SUMAtriptan (Imitrex) 50 MG tablet Take 1 tablet (50 mg) by mouth if needed in the morning, at noon, and at bedtime for migraine. May repeat dose once in 2 hours if no relief. Do not exceed 2 doses in 24 hours. 9 tablet 1 Tirzepatide-Weight Management (Zepbound) 2.5 MG/0.5ML solution auto-injector Inject 0.5 mL (2.5 mg)under the skin 1 (one) time per week. 2 mL 0 valACYclovir (Valtrex) 1 g tablet 1 tab po tid 21 tablet 0 valACYclovir (Valtrex) 500 MG tablet TAKE 1 TABLET BY MOUTH EVERY DAY 90 tablet 1 zoster vaccine-recombinant adjuvanted (Shingrix) 50 MCG/0.5ML vaccine Inject 0.5 mL into the shoulder, thigh, or buttocks. No current facility-administered medications for this visit. 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 Ortho, x-ray ordered, if longer wait for ortho will order mri documented in this encounter Plan of Treatment Scheduled Referrals Name Type Priority Associated Diagnoses Order Schedule Referral to Orthopaedic Surgery Outpatient Referral Routine Paresthesia Acute pain of right shoulder Expected: 07/29/2024 (Approximate), Expires: 07/29/2025 Referral to Physical Therapy Outpatient Referral Routine Paresthesia Acute pain of right shoulder Expected: 07/29/2024 (Approximate), Expires: 07/29/2025 documented as of this encounter Procedures Procedure Name Priority Date/Time Associated Diagnosis Comments XR SHOULDER 2+ VIEWS RIGHT Routine 07/29/2024 1:59 PM EDT Paresthesia Acute pain of right shoulder documented in this encounter Results * XR Shoulder 2+ Views Right (07/29/2024 1:59 PM EDT) Anatomical Region Laterality Modality Upper Extremities, Shoulder Right Radi ographic Imaging 07/29/2024 1:59 PM EDT Narrative 07/29/2024 2:45 PM EDT ?[facility] ?[address] ?[place] [address] ?XRay Report ? Signed ? Patient: Sudha Dean ?MR#: [id number] ?? [id number] ? : 1970 ?Acct:[id number] ? Age/Sex: 54 / F ?ADM Date: 07/29/24 ? Loc: HO.HHCX ? Attending Dr: Manju Jennings MARINE STRUCTURAL WELDER ? Ordering Physician: Manju Jennings MARINE STRUCTURAL WELDER ?? Date of Service: 07/29/24 ?? Procedure(s): XR shoulder RT min 2V ?? Accession Number(s): [id number] ? cc: Manju Jennings MARINE STRUCTURAL WELDER ? EXAMINATION: ??XR SHOULDER 2 OR MORE VIEWS RIGHT ? HISTORY: right shoulder pain and limited rom, suspect frozen shoulder ? COMPARISON: There are no prior studies available for comparison. ? FINDINGS: ? Three views of the right shoulder are submitted. ??Osseous ?? mineralization is normal. ??There is no fracture or dislocation. ??The ?? glenohumeral and acromioclavicular joint spaces are preserved. ??The ?? soft tissues are unremarkable. ? XR/XR shoulder RT min 2V ?? IMPRESSION: ? Unremarkable examination of the right shoulder. ? Electronically signed by: ??Ru Ross MD ??07/29/2024 02:42 PM EDT ? Dictated By: ?Ru Ross MD ? Signed By: ?<Electronically signed by Ru Ross MD in OV> ?07/29/24 1442 ? DD/ 1359 ? TD/TT: 07/29/24 1400 ? Butt Presser: ? Procedure Note Donjossieinterpreter, Image - 07/29/[address] [address] XRay Report Signed Patient: Sudha Dean NMR#: [id number] : 1970Acct:[id number] Age/Sex: 54 / FADM Date: 07/29/24 Loc: HO.HHCX Attending Dr: Manju Jennings MARINE STRUCTURAL WELDER Ordering Physician: Manju Jennings NP Date of Service: 07/29/24 Procedure(s): XR shoulder RT min 2V Accession Number(s): [id number] cc: Manju Jennings MARINE STRUCTURAL WELDER EXAMINATION: XR SHOULDER 2 OR MORE VIEWS RIGHT HISTORY: right shoulder pain and limited rom, suspect frozen shoulder COMPARISON: There are no prior studies available for comparison. FINDINGS: Three views of the right shoulder are submitted. Osseous mineralization is normal. There is no fracture or dislocation. The glenohumeral and acromioclavicular joint spaces are preserved. The soft tissues are unremarkable. XR/XR shoulder RT min 2V IMPRESSION: Unremarkable examination of the right shoulder. Electronically signed by: Ru Ross MD 07/29/2024 02:42 PM EDT Dictated By: Ru Ross MD Signed By: <Electronically signed by Ru Ross MD in OV> 07/29/24 1442 DD/ 1359 TD/TT: 07/29/24 1400 Butt Presser: us Manju Jennings MARINE STRUCTURAL WELDER IMG XR PROCEDURES Edited Result - Final documented in this encounter Visit Diagnoses Diagnosis Paresthesia- Primary Disturbance of skin sensation Acute pain of right shoulder documented in this encounter Additional Health Concerns Assessment Noted Time PHQ-9 Depression Total Score: 15 024 9:44 AM EST documented as of this encounter Care Teams Honeycomb Decapper Relationship Specialty Start Date End Date Adriana Palencia MD [address] [place] [address] PCP - General Family Medicine 06/01/18 documented as of this encounter
--- OUTSIDE RECORDS SUMMARY | 2024-07-29 16:17 | XMS_ITS | Encounter Summary ---
Author Organization [employer] Address [address] [place] [address] 7 [place] [address] Care Team Providers Care Metallurgical Tester Name Role Phone Adriana Palencia MD Primary Care Provide r Reason for Visit * Reason Comments Med Refill Encounter Details Date Type Department Care Team ([facility] Contact Info) Description 11/02/2022 Refill [facility] MEDICINE [address] [place] [address] Lilia Mcgregor FNP [address] [place] [address] Dept [place] [address] Social History Tobacco Use Types Packs/Day Years [...] Noted Time PHQ-9 Depression Total Score: 14 08/04/ 023 3:05 PM EDT documented as of this encounter Care Teams Metallurgical Tester Relationship Specialty Start Date End Date Adriana Palencia MD [address] [place] [address] PCP - General Family Medicine 06/01/18 documented as of this encounter
--- OUTSIDE RECORDS SUMMARY | 2024-07-29 16:17 | XMS_ITS | Clinical Summary ---
Author Organization [facility] Address [address] [place] [address] Phone Care Team Providers Care Cosmetic Sales Consultant Name Role Phone Maribel Garcia XANDER Primary Care Provider [phone] Allergies No known active allergies Medications No known medications Active Problems No known active problems Encounters Date Type Department Care Team Description 06/08/2024 1:54 PM EST - 06/08/2024 4:47 PM EST Emergency [facility] Emergency [address] [place] [address] Influenza (Primary Dx) Discharge Disposition: [...] (3 - season) 2023 08/04/2020, 07/07/2020 Depression Screening 06/15/2024 06/16/2023 Influenza Vaccine (Season Ended) 2024 02/06/2023 Hepatitis B Vaccines Completed 03/19/2014, 04/30/2013, 04/30/2012, [...] age to complete this topic Meningococcal B Vaccine Aged Out No l onger eligible based on patient's age to complete this topic RSV Immunization Patients Under 20 months Aged Out No longer eligible based on patient's age to complete this topic Varicella Vaccines Aged Out No longer eligible based on patient's age to complete this topic Procedures Procedure Name Priority Date/Time Associated Diagnosis Comments [id number], RSV, FLU A AND B QUALITATIVE RT-PCR, INTERNAL LAB STAT 06/08/2024 12:48 PM EST from Last 3 Months Results * (ABNORMAL) [id number], RSV, Influenza A and B qualitative RT-PCR (06/08/2024 12:48 PM EST) Influenza A PCR Detected(A) Not Detected LAB MICROBIOLOGY METHOD 06/08/2024 1:55 PM EST [facility] Comment:This patient is posi tive for influenza A. If the patient is admitted, please order the Respiratory Virus Panel PCR ([facility] ID: [id number]) so our lab can subtype the influenza A, per CDC recommendations. Influenza B PCR Not Detected Not Detected LAB MICROBIOLOGY METHOD 06/08/2024 1:55 PM EST [facility] RSV PCR Not Detected Not Detected LAB MICROBIOLOGY METHOD 06/08/2024 1:55 PM EST [facility] SARS COV-2 Not Detected Not Detected LAB MICROBIOLOGY METHOD 06/08/2024 1:55 PM EST [facility] Swab Both anterior nares / Unknown Non-blood Collection / Unknown 06/08/2024 12:48 PM EST 06/08/2024 1:08 PM EST [facility] - 06/08/2024 1:55 PM EST Disclaimer: ??Testing was performed using the [employer] GeneXpert Xpress SARS-CoV-2 _Flu_RSV PLUS PCR assay. [...] for Healthcare providers can be found at https://www.fda.gov/media/856585/download. ?? Fact sheet for Healthcare patients can be found at https://www.fda.gov/media/296873/download. us Maged Rutledge MD LAB MICROBIOLOGY - GENERAL ORDERABLES Final Result [facility] [address] [place] [address], from Last 3 Months Insurance [facility] MEDICARE Member Subscriber Plan / Payer (Ef fective 2024-Present) Name:Sudha Dean Relation to Subscriber:Self Name:Sudha Dean Payer ID:[id number] Group ID:Not on file Type:Not on file Address: [place] [address] [address] [id number] Care Teams Cosmetic Sales Consultant Relationship Specialty Start Date End Date Maribel Garcia FNP PCP - General Internal Medicine 04/11/13
--- OUTSIDE RECORDS SUMMARY | 2024-07-29 16:17 | XMS_ITS | Encounter Summary ---
Author Organization [email or web address] Address [address] [facility] [address]t [place] [address] Care Team Providers Care Braiding Machine Tender Name Role Phone Adriana Palnecia MD Primary Care Provide r Reason for Visit * Reason Comments Med Refill Encounter Details Date Type Department Care Team ([facility] st Contact Info) Description 01/10/2023 Refill [facility] MEDICINE [address] [place] [address] Adriana Palencia MD [address] [place] [address] Social History Tobacco Use Types Packs/Day Years [...] documented as of this encounter Care Teams Braiding Machine Tender Relationship Specialty Start Date End Date Adriana Palencia MD [address] [place] [address] PCP - General Family Medicine 06/01/18 documented as of this encounter
--- OUTSIDE RECORDS SUMMARY | 2024-07-29 16:17 | XMS_ITS | Encounter Summary ---
Author Organization [employer] Address [address] [place] [address] Care Team Providers Care Commercial Director Name Role Phone Adriana Palencia MD Primary Care Provide r Encounter Details Date Type Department Care Team (Late st Contact Info) Description 01/18/2023 Abstract [facility] MEDICINE [address] [place] [address] Eliane Raman Social History Tobacco Use Types [...] 07/02/2021 documented in this encounter Results * Pap Smear (07/02/2021) Pap Negative for intraephithelial lesion or malignancy Negative for intraephithelial lesion or malignancy, Other HPV Undetected Historical Provider HEALTH MAINTENANCE Final Result documented in this encounter Visit Diagnoses Not on filedocumented in this encounter Additional Health Concerns Assessment Noted Time PHQ-9 Depression Total Score: 14 023 3:05 PM EDT documented as of this encounter Care Teams Commercial Director Relationship Specialty Start Date End Date Adriana Palencia MD [address] [place] [address] PCP - General Family Medicine 06/01/18 documented as of this encounter
--- OUTSIDE RECORDS SUMMARY | 2024-07-29 16:17 | XMS_ITS | Encounter Summary ---
Author Organization [employer] Address [address] [place] [address] Care Team Providers Care Last Waxer Name Role Phone Adriana Palencia MD Primary Care Provide r Encounter Details Date Type Department Care Team (Late st Contact Info) Description 03/14/2023 Abstract [facility] MEDICINE [address] [place] [address] Eliane Raman Social History Tobacco Use Types [...] documented as of this encounter Care Teams Last Waxer Relationship Specialty Start Date End Date Adriana Palencia MD [address] [place] [address] PCP - General Family Medicine 06/01/18 documented as of this encounter
--- OUTSIDE RECORDS SUMMARY | 2024-07-29 16:17 | XMS_ITS | Clinical Summary ---
Author Organization [employer] Address [address] [facility] [address] [place] [address] Care Team Providers Care Business Continuity Manager Name Role Phone Adriana Palencia MD [...] hours. Active ergocalciferol (Vitamin D-2) 1.25 MG (36529 UT) capsule take 1 capsule by oral route every week Active ferrous sulfate 325 (65 Fe) MG tablet 1 tablet every 12 (twelve) hours. Active zoster vaccine-recombina nt adjuvanted (Shingrix) 50 MCG/0.5ML vaccine Inject 0.5 [...] mL every 6 (six) hours. 020 Active Lactobacillus-Inu kristen ([facility] [employer]) capsule take 1 capsule 2 times a day every 12 hours Active DULoxetine (Cymbalta) [address] capsuleIndication s:Fibromyalgia TAKE 1 CAPSULE (30 MG) BY MOUTH [...] tablet 023 Active gabapentin (Neurontin) 100 MG capsuleIndication s:Chronic pain of right lower extremity Take 1 capsule (100 mg) by mouth at bedtime. 30 capsule 1 023 Active meclizine (Antivert) 25 MG tablet Take 1 tablet (25 mg) by mouth every 8 (eight) hours. 30 tablet 1 024 Active butalbital-acetam inophen-caffeine 50-325-40 MG tabletIndications :Migraine without aura and without status migrainosus, not [...] D Active albuterol (2.5 MG/3ML) 0.083% nebulizer solutionIndicatio ns:Mild intermittent asthma, unspecified whether complicated Take 3 mL by nebulization every 8 (eight) hours. 75 mL 2 Active albuterol (ProAir HFA) 108 (90 Base) MCG/ACT inhalerIndication s:Mild intermittent asthma, unspecified whether complicated Inhale 2 puffs every 4 (four) hours. 18 g 1 Active cyanocobalamin ([facility] Vitamin B-12) 1000 MCG tabletIndications :Vitamin B12 deficiency Take 1 tablet (1,000 mcg) by mouth Once per day. 30 tablet 3 024 2024 Active levothyroxine (Synthroid, Levoxyl) 137 MCG tabletIndications :Acquired hypothyroidism TAKE 1 TABLET BY MOUTH EVERY DAY BEFORE BREAKFAST 90 tablet 1 Active Blood Pressure Monitoring (Blood Pressure Cuff) miscIndications:E levated blood pressure reading 1 each Once daily. 1 each Active Diclofenac Sodium 1 % gel APPLY 2 GRAMS TOPICALLY TO AFFECTED AREA(S) TWICE DAILY NEEDED 100 g 2 Active omeprazole (PriLOSEC) [address] capsuleIndication s:Gastroesophagea l reflux disease without esophagitis TAKE 1 CAPSULE [...] hours. 9 tablet 1 024 2024 Active loratadine (Claritin) 10 MG tablet Take 1 tablet (10 mg) by mouth Once per day. 10 tablet 025 2025 Active baclofen (Lioresal) 10 MG tabletIndications :Muscle spasm,Pain TOME 1 TABLETA POR VIA ORAL DENNYS VECES AL KENAN CUANDO SEA NECESARIO 270 tablet Active valACYclovir (Valtrex) 500 MG tablet TAKE 1 TABLET BY MOUTH EVERY DAY 90 tablet 1 Active Tirzepatide-Weigh t Management (Zepbound) 2.5 MG/0.5ML solution auto-injectorIndi cations:Class 1 obesity due to excess calories with serious comorbidity and body mass index (BMI) of 32.0 to 32.9 in adult Inject 0.5 mL (2.5 mg) under the skin 1 (one) time per week. 2 mL Active fluticasone (Flonase) 50 MCG/ACT nasal spray TAKE 1 SPRAY IN EACH NOSTRIL 2X A DAY SHAKE GENTLY, PRIME BEFORE 1ST USE CLEAN TIP AND REPLACE CAP 48 mL 025 2024 Discontinued naproxen (Naprosyn) 500 MG tabletIndications :Polyarthralgia TAKE 1 TABLET (500 MG) BY MOUTH EVERY 12 (TWELVE) HOURS 60 tablet 1 025 2024 Discontinued Tirzepatide-Weigh t Management (Zepbound) 2.5 MG/0.5ML solution auto-injectorIndi cations:Class 1 obesity due to excess calories with serious comorbidity and body mass index (BMI) of 32.0 to 32.9 in adult Inject 0.5 mL (2.5 mg) under the skin 1 (one) time per week. 2 mL 025 2024 Discontinued(R eorder (will not trigger notification to Pharmacy)) ibuprofen 800 MG tabletIndications :Polyarthralgia Take 1 tablet (800 mg) by mouth every 8 (eight) hours if needed for mild pain for up to 20 days. 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 Ortho, x-ray ordered, if longer wait for ortho will order mri Overweight with body mass in dex (BMI) of 28 to 28.9 in adult 07/02/2024 Assessment & Plan (07/02/2024 4:27 PM EDT): Extensive counseling about healthy diet, hydration and exercise done today I will continue with Zepbound 2.5 mg weekly, dose will not be increased the goal is for patient to lose about 15 pounds and after that medication should be discontinued and she should be maintaining a healthy diet and exercise Allergic rhinitis 04/23/2024 Assessment & Plan (04/23/2024 [...] life style modifications, diet and referral to cardiovascular invasive specialist. Recommended to decrease soda and sugary [...] qhs [facility] Gastroesophageal reflux disease 04/30/2013 Mixed anxiety and depressive disorder 07/04/2012 Assessment & Plan (06/16/2023 10:25 AM EST): Continue to follow with psychiatrist and therapist Acquired hypothyroidism 12/30/2011 Cobalamin deficiency 12/30/2011 Iron deficiency anemia 12/30/2011 Encounters Date Type Department Care Team Description 07/29/2024 1:20 PM EDT Office Visit [facility] [address] [place] [address] Manju Jennings, SIL Paresthesia (Primary Dx); Acute pain of right shoulder 07/29/2024 Refill [facility] [address] [place] [address] Adriana Palencia MD Class 1 obesity due to excess calories with serious comorbidity and body mass index (BMI) of 32.0 to 32.9 in adult 07/29/2024 Travel 07/29/2024 Telephone [facility] [address] [place] [address] Adriana Palencia MD Nurse Triage 07/19/2024 Refill [facility] [address] [place] [address] Adriana Palencia MD Class 1 obesity due to excess calories with serious comorbidity and body mass index (BMI) of 32.0 to 32.9 in adult 07/16/2024 Telephone [facility] [address] [place] [address] Adriana Palencia MD Prior Authorization ([facility] Request: Olman) 07/12/2024 Orders Only [facility] [address] [place] [address] Adriana Palencia MD Class 1 obesity due to excess calories with serious comorbidity and body mass index (BMI) of 32.0 to 32.9 in adult 07/12/2024 Refill [facility] [address] [place] [address] Adriana Palencia MD Class 1 obesity due to excess calories with serious comorbidity and body mass index (BMI) of 32.0 to 32.9 in adult 07/02/2024 10:00 AM EDT Office Visit [facility] [address] [place] [address], [place] [address] Adriana Palencia MD Overweight with body mass index (BMI) of 28 to 28.9 in adult (Primary Dx); Polyarthralgia 07/02/2024 Travel 06/21/[address] [address] Adriana Palencia MD ER Follow-up 06/16/2024 Refill [facility] [address] [place] [address] Adriana Palencia MD Polyarthralgia 06/14/2024 Orders Only [facility] [address] [place] [address] Adriana Palencia MD Class 1 obesity due to excess calories with serious comorbidity and body mass index (BMI) of 32.0 to 32.9 in adult (Primary Dx) 06/14/2024 Telephone [facility] [address] [place] [address] Adriana Palencia MD Nurse Triage 06/10/2024 Orders Only GENERIC EXTERNAL DATA DEPARTMENT Provider, Generic External Data 06/07/[address] [address] Adriana Palencia MD Med Refill 06/06/[address] [address] Adriana Palencia MD Nurse Triage 06/05/2024 Telephone [facility] [address] [place] [address] Adriana Palencia MD Chart Prep 06/03/2024 Refill [facility] [address] [place] [address] Adriana Palencia MD 06/02/2024 Refill [facility] [address] [place] [address] Adriana Plaencia MD 05/21/2024 Telephone [facility] [address] [place] [address] Adriana Palencia MD Med Refill 05/21/2024 Refill [facility] [address] [place] [address] Adriana Palencia MD Class 1 obesity due to excess calories with serious comorbidity and body mass index (BMI) of 32.0 to 32.9 in adult 05/17/2024 Refill [facility] [address] [place] [address] Adriana Palencia MD Muscle spasm; Pain from Last 3 Months Immunizations Name Administration [...] 12.8 oz) 07/29/2024 1:01 PM EDT Height 160 cm (5' 3 ) 07/02/2024 9:52 AM EDT Body Mass Index 28.13 07/02/2024 9:52 AM EDT Plan of Treatment Health Maintenance Due Date Last Done Comments CT Colonography 1970 Colonoscopy 1970 Colorectal Cancer Screening 1970 FIT DNA/Cologuard 1970 FIT 1970 FOBT 1970 Sigmoidoscopy 1970 Zoster Vaccines (2 of 2) 04/03/2023 02/06/2023 COVID-19 Vaccine (3 - season) 2023 08/04/2020, 07/07/2020 Depression Monitoring 12/17/2023 06/16/2023, 024 Influenza Vaccine (#1) 2023 02/06/2023 SDOH Screening 06/08/2024 06/08/2023 Depression Screening 06/15/2024 06/16/2023, 06/16/19 24 Mammogram 02/21/2025 02/22/2024, 1105/2022, 08/27/2020, Additional history exists Alcohol/Substance Use Screening 03/29/2025 03/29/2024 Tobacco Screening 04/16/2025 04/16/2024 Cervical Cancer Screening 07/02/2026 HPV/Cotest 07/02/2026 07/02/2021, 06/15, 07/02/2021 Pap Smear 07/02/2026 07/02/2021 Lipid Panel 12/12/2028 12/13/2023, 03/0 12/2022, 01/12/2021 DTaP/Tdap/Td Vaccines (3 - Td or Tdap) 06/24/2034 06/24/2024, 04/30/2013, 07/10/2008 RSV Patients and Patients Aged 60 years or older (1 - 1-dose 75+ series) 2045 Hepatitis B Vaccines Completed 03/19/2014, 04/30/2013, 04/30/2012, Additional history exists HIV Screening Completed 12/13/2023, 12/17, 06/04/2019 Hepatitis C Screening Completed 12/13/2023, 021 Pneumococcal Vaccine: 50+ Years Completed 06/24/2024, 03/19/2014 HIB Vaccines Aged Out No longer eligi [...] EDT Paresthesia Acute pain of right shoulder URINALYSIS WITH REFLEX MICROSCOPIC Routine 06/10/2024 1:40 PM EST BI MAMMOGRAM SCREENING TOMOSYNTHESIS BILATERAL Routine 02/22/2024 [...] Recently Relevant to Health Maintenance Results * XR Shoulder 2+ Views Right (07/29/2024 1:59 PM EDT) Anatomical Region Laterality Modality Upper Extremities, Shoulder Right Radi ographic Imaging 07/29/2024 1:59 PM EDT Narrative 07/29/2024 2:45 PM EDT ?[facility] ?[address] ?[place] [address] ?XRay Report ? Signed ? Patient: Nirmal Regan,Sudha N ?MR#: [id number] ?? [id number] ? : 1970 ?Acct:[id number] ? Age/Sex: 54 / F ?ADM Date: 04/14/25 ? Loc: HO.HHCX ? Attending Dr: Manju Jennings TOY ASSEMBLER ? Ordering Physician: Manju Jennings NP ?? Date of Service: 07/29/24 ?? Procedure(s): XR shoulder RT min 2V ?? Accession Number(s): [id number] ? cc: Manju Jennings TOY ASSEMBLER ? EXAMINATION: ??XR SHOULDER 2 OR MORE [...] ??Ru Ross MD ??07/29/2024 02:42 PM EDT ?? RP ? Dictated By: ?Ru Ross MD ? Signed By: ?<Electronically signed by Ru Ross MD in OV> ?07/29/24 1442 ? DD/ 1359 ? TD/TT: 07/29/24 1400 ? Card Stripper: ? Procedure Note Bambi Oro - 07/29/2024 [place] [address] XRay Report Signed Patient: Sudha Dean NMR#: [id number] : 1970Acct:[id number] Age/Sex: 54 / FADM Date: 07/29/24 Loc: HO.HHCX Attending Dr: Manju Jennings TOY ASSEMBLER Ordering Physician: Manju Jennings NP Date of Service: 07/29/24 Procedure(s): XR shoulder RT min 2V Accession Number(s): [id number] cc: Manju Jennings TOY ASSEMBLER EXAMINATION: XR SHOULDER 2 OR MORE VIEWS [...] 07/29/24 1442 DD/ 1359 TD/TT: 07/29/24 1400 Card Stripper: us Manju Jennings TOY ASSEMBLER IMG XR PROCEDURES Edited Result - Final * Urinalysis w/reflex microscopic (06/10/2024 1:40 PM EST) Color Urine Yellow [facility] Appearance Urine Clear [facility] PH 6.5 5.0 - 9.0 [facility] Glucose Urine UA Negative Negative mg/dL [facility] Urine Blood Negative Negative [facility] Specific [place] - Urine 1.010 1.005 - 1.025 [facility] Urine Protein Negative Neg-Trace mg/dL [facility] Urine Ketones 15 Negative mg/dL [facility] Nitrite Urine Negative Negative [facility] Leukocyte Esterase Urine Negative Negative [facility] 06/10/2024 1:40 PM EST 06/10/2024 1:44 PM EST Narrative [facility] - 06/10/2024 1:48 PM EST [id number], Clean Catch us Generic External Data Provider LAB URINE ORDERAB LES Final Result [facility] [address] [place] [phone] * BI Mammogram Screening Tomosynthesis Bilateral (02/22/2024 8:40 AM EST) Anatomical Region Laterality Modality Breast Bilateral Mammography 02/22/2024 8:40 AM EST Narrative 03/01/2024 4:10 PM EST ? [place] [facility] ? [address] ?[place] [address] ? Mammography Report ? Signed ? Patient: Nirmal Regan,Sudha N ?MR#: [id number] ?? [id number] ? : 1970 ?Acct:[id number] ? Age/Sex: 54 / F ?ADM Date: 02/22/24 ? Loc: HO.MAMMO ? Attending Dr: Adriana Sanches MD ? Ordering Physician: Adriana Palencia MD ?Results: ?? 1Negative ? Date of Service: 02/22/24 ?Follow Up: 1 Year From Orig ?? inal Mammogram ? Procedure(s): MM tomosynthesis screening BI ?? Accession Number(s): [id number] ? cc: Adriana Palencia MD ? EXAMINATION: [...] ??Rachana Pablo DO ??03/01/2024 04:07 PM EST ?? RP ? Dictated By: ?Rachana Pablo DO ? Signed By: ?<Electronically signed by Rachana aPblo, DO in OV> ? 03/01/24 1607 ? DD/ 0840 ? TD/TT: 02/22/24 0903 ? Card Stripper: ? Procedure Note Donjossieinterpreter, Image - 03/01/2024 [facility] [address] [place] [address] Mammography Report Signed Patient: Sudha Dean NMR#: [id number] : 1970Acct:[id number] Age/Sex: 54 / FADM Date: 02/22/24 Loc: HO.MAMMO Attending Dr: Adriana Sanches MD Ordering Physician: Adriana Palencia MDResults: 1Negative Date of Service: 02/22/24Follow Up: 1 Year From Orig ina Mammogram Procedure(s): MM tomosynthesis screening BI Accession Number(s): [id number] cc: Adriana Palencia MD EXAMINATION: MM SCREENING [...] 03/01/24 1607 DD/ 0840 TD/TT: 02/22/24 0903 Card Stripper: us Adriana Sanches MD IMG BI PROCEDURES Fin al Result * (ABNORMAL) Lipid Panel with Reflex to Direct LDL (12/13/2023 12:18 PM EDT) Triglycerides 52 <150 mg/dL [facility] Comment:Desirable Triglyceri de: less than 150 mg/dLBorderline High Triglyceride 150-199 mg/dLHigh Triglyceride: 200-499 mg/dLVery High Triglyceride: greater than or equal to 5OO mg/dL Cholesterol 187 <200 mg/dL [facility] Comment:Desirable Cholestero l: less than 200 mg/dLBorderline High Cholesterol: 200-239 mg/dLHigh Cholesterol: greater than 239 mg/dL LDL Cholesterol Calculated 109(H) <100 mg/dL [facility] Comment:Desirable LDL: less than 100 mg/dLNear Optimal/Above Optimal LDL: 110- 129 mg/dLBorderline High LDL: 130-159 mg/dLHigh LDL: 160-189 mg/dLVery High LDL: greater than or equal to 190 mg/dL HDL Cholesterol 68 >40 mg/dL [facility] Comment:Desirable HDL: great er than 40 mg/dL Note: This HDL assay may give artificially low results in patients with liver disease. Blood 12/13/2023 12:1 8 PM EDT 12/13/2023 1:25 PM EDT us Adriana Sanches MD LAB BLOOD ORDERABLES Final Result Performing Organization Address [facility] Co de Phone Number [facility] [address] [place] [phone] * Hepatitis C Viral RNA, Quantitative, Real-Time PCR (12/13/2023 12:18 PM EDT) [facility] Hepatitis C Viral Load <15 NOT DETECTED NOT DETECTED IU/mL [facility] HCV Log PCR <1.18 NOT DETECTED NOT DETECTED Log IU/mL [facility] Comment:For additional infor mation, please refer tohttp://education.[employer]/faq/EXL72w4(This link is being provided for informational/educational purposes only.)THIS TEST WAS PERFORMED AT:[facility] [place] [phone] KENNEDY MD Blood 12/13/2023 12:1 8 PM EDT 12/13/2023 1:25 PM EDT Adriana Sanches MD LAB BLOOD ORDERABLES Final Result Performing Organization Address [facility] de Phone Number [facility] [address] [place] [phone] * HIV-1/2 Antigen and Antibodies, Fourth Generation, with Reflexes (12/13/2023 12:18 PM EDT) [facility] HIV AB/AG Nonreactive Nonreactive [facility] Comment:HIV-1 p24 Ag and/or HIV-1/HIV-2 Ab not detected.A test result that is nonreactive does not exclude thepossibility of exposure to or infection with HIV-1 and/orHIV-2. Nonreactive results in this assay for individualswith prior exposure to HIV-1 and/or HIV-2 may be due toantigen and antibody levels that are below the limit ofdetection of this assay.The [facility] HIV Ag/Ab Combo assay result andsupplemental assay results should be interpreted inconjunction with the patient's clinical presentation,history and other laboratory results. If the results areinconsistent with clinical evidence, additional testing issuggested to confirm the result. Blood Venous blood specimen / Unknown 12/13/2023 12:18 PM EDT 12/13/2023 1:15 PM EDT us Adriana Sanches MD LAB BLOOD ORDERABLES Final Result [facility] [address] [place] [phone] * Pap Smear (07/02/2021) Pap Negative for intraephithelial lesion or malignancy Negative for intraephithelial lesion or malignancy, Other HPV Undetected us Historical Provider HEALTH MAINTENANCE Final Result from Last 3 Months or Most Recently Relevant to Health Maintenance Insurance [facility] STANDARD CCA ONE CARE < 65 [place] [id number] Care Teams Business Continuity Manager Relationship Specialty Start Date End Date Adriana Palencia MD [address] [place] [address] PCP - General Family Medicine 06/01/18
--- OUTSIDE RECORDS SUMMARY | 2024-07-29 16:17 | XMS_ITS | Encounter Summary ---
Author Organization [employer] Address [address] [facility] [address] [facility] [address] [place] [address] Care Team Providers Care Manufacturer Name Role Phone Adriana Palencia MD Primary Care Provide r Reason for Visit * Reason Comments Med Refill Encounter Details Date Type Department Care Team ([facility] st Contact Info) Description 09/25/2022 Refill [facility] [address] [place] [address] Adriana Palencia MD [address] [place] [address] Fibromyalgia Social History Tobacco Use Types Packs/Day [...] documented as of this encounter Care Teams Manufacturer Relationship Specialty Start Date End Date Adriana Palencia MD [address] [place] [address] PCP - General Family Medicine 06/01/18 documented as of this encounter
--- OUTSIDE RECORDS SUMMARY | 2024-07-29 16:17 | XMS_ITS | Encounter Summary ---
Author Organization [employer] Address [address] [facility] [address] [place] [address] Care Team Providers Care [employer] Freight Car Cleaner Name Role Phone Adriana Palencia MD Primary Care Provide r Reason for Visit * Reason Onset Date Comments Letter Needed 04/18/2023 Encounter Details Date Type Department Care Team ([facility] Contact Info) Description 04/18/2023 Telephone [facility] [address] [place] [address] Adriana Palencia MD [address] [place] [address] Letter Needed Social History Tobacco Use Types [...] causing herasthma attacks. Please contact pt @ [phone] Tunisian Speaker documented in this encounter Plan of Treatment Not on file documented as of this encounter Visit Diagnoses Not on filedocumented in this encounter Additional Health Concerns Assessment Noted Time PHQ-9 Depression Total Score: 14 023 3:05 PM EDT documented as of this encounter Care Teams [employer] Fre[employer] Car Cleaner Relationship Specialty Start Date End Date Adriana Palencia MD [address] [place] [phone] PCP - General Family Medicine 06/01/18 documented as of this encounter
--- OUTSIDE RECORDS SUMMARY | 2024-07-29 16:17 | XMS_ITS | Encounter Summary ---
Author Organization [facility] Address [address] [facility] [address] [place] [address] Care Team Providers Care Highway Patrol Pilot Name Role Phone Adriana Palencia MD Primary Care Provide r Encounter Details Date Type Department Care Team (Late st Contact Info) Description 03/17/2022 Abstract [facility] [address] [place] [address] ProviderGurvinder MD Social History Tobacco Use Types [...] on filedocumented in this encounter Care Teams Highway Patrol Pilot Relationship Specialty Start Date End Date Adriana Palencia MD [address] [place], [place] [phone] PCP - General Family Medicine 06/01/18 documented as of this encounter
--- OUTSIDE RECORDS SUMMARY | 2024-07-29 16:17 | XMS_ITS | Encounter Summary ---
Author Organization [employer] Address [address] [facility] [address]t [place] [address] Care Team Providers Care Heating And Ventilating Worker Name Role Phone Adriana Palencia MD Primary Care Provide r Reason for Visit * Reason Comments Med Refill Encounter Details Date Type Department Care Team ([facility] st Contact Info) Description 10/31/2022 Refill [facility] [address] [place] [address] Adriana Palencia MD [address] [place] [address] Social History Tobacco Use Types Packs/Day Years [...] documented as of this encounter Care Teams Heating And Ventilating Worker Relationship Specialty Start Date End Date Adriana Palencia MD [address] [place] [address] PCP - General Family Medicine 06/01/18 documented as of this encounter
--- OUTSIDE RECORDS SUMMARY | 2024-07-29 16:17 | XMS_ITS | Encounter Summary ---
Author Organization [employer] Address [address] [facility] [address] 7[address] [place] [address] Care Team Providers Care Glass Designer Name Role Phone Adriana Palencia MD Primary Care Provide r Reason for Visit * Reason Onset Date Comments Nurse Triage 07/29/2024 Encounter Details Date Type Department Care Team ([facility] st Contact Info) Description 07/29/2024 Telephone [facility] MEDICINE [address] [place] [address] Adriana Palencia MD [address] [place] [address] Nurse Triage Social History Tobacco Use Types [...] encounter Miscellaneous Notes * Telephone Encounter - Whitney Monk RN - 07/29/2024 11:28 AM EDT Images from the original note were not included. No sheriffs detective needed as this mortgage loan underwriter speaks [place]. Call returned to [facility] for Sudha Regan to triage below. Reports having right arm pain that starts at shoulder and radiates down to wrist and hand. Per pt no injury. Pt has limited ROM on shoulder. No swelling , redness or bruising. Per pt pain x 1 week. Using OTC Ibuprofen and Tylenol with no relief. Per pt also having swelling of palm of hand only. No redness. Pt wishes to be seen today. agrees to seek [facility] for exam as no sick on site availability on teams at time of call. Reviewed [facility] operating hours and that wait times vary. Reviewed home care advise, ER precautions and reasons to call back. Protocol Used: Arm Pain (Adult) Protocol-Based Disposition: See in Office or Video Visit Today Positive Triage Question: * Numbness (i.e., loss of sensation) in hand or fingers (Exceptions: Just tingling; numbness present > 2 weeks.) * All higher-acuity triage questions were negative Care Advice Discussed: * Reasons To Call Back - Signs of infection occur (such as spreading redness, warmth, fever) - You become worse * Telephone Encounter - Lana Taveras - 07/29/2024 10:59 AM EDT Symptom: Arm Pain and finger numbness - Not From Injury Outcome: Schedule an urgent appointment (within 1 hour) or talk to a nurse or provider soon Reason: Can't use the arm normally The caller accepted this outcome. documented in this encounter Plan of Treatment Not on file documented as of this encounter Visit Diagnoses Not on filedocumented in this encounter Additional Health Concerns Assessment Noted Time PHQ-9 Depression Total Score: 15 024 9:44 AM EST documented as of this encounter Care Teams Glass Designer Relationship Specialty Start Date End Date Adriana Palencia MD [address] [place] [id number] PCP - General Family Medicine 06/01/18 documented as of this encounter
--- OUTSIDE RECORDS SUMMARY | 2024-07-29 16:17 | XMS_ITS | Encounter Summary ---
Author Organization [employer] Address [address] [facility] [facility] [address] [place] [address] Care Team Providers Care Stave Log Ripsaw Operator Name Role Phone Adriana Palencia MD Primary Care Provide r Reason for Visit * Reason Onset Date Comments Med Refill 05/21/2024 Encounter Details Date Type Department Care Team ([facility] st Contact Info) Description 05/21/2024 Telephone [facility] MEDICINE [address] [place] [address] Adriana Palencia MD [address] [place] [address] Med Refill Social History Tobacco Use Types [...] MG/0.5ML solution auto-injector To be sent to: [facility]/pharmacy #[id number] [place] [address] - [address] [place] [address] documented in this encounter Plan of Treatment Not on file documented as of this encounter Visit Diagnoses Not on filedocumented in this encounter Additional Health Concerns Assessment Noted Time PHQ-9 Depression Total Score: 15 024 9:44 AM EST documented as of this encounter Care Teams Stave Log Ripsaw Operator Relationship Specialty Start Date End Date Adriana Palencia MD [address] [place] [address] PCP - General Family Medicine 06/01/18 documented as of this encounter
--- OUTSIDE RECORDS SUMMARY | 2024-07-29 16:17 | XMS_ITS | Encounter Summary ---
Author Organization [employer] Address [address] [place] [address] Care Team Providers Care Certified Pharmacy Technician Name Role Phone Adriana Palencia MD Primary Care Provide r Reason for Visit * Reason Comments Med Refill Encounter Details Date Type Department Care Team ([facility] st Contact Info) Description 08/31/2023 Refill [facility] MEDICINE [address] [place] [address] Adriana Palencia MD [address] [place] [address] Gastroesophageal reflux disease without esophagitis Social History [...] documented as of this encounter Care Teams Certified Pharmacy Technician Relationship Specialty Start Date End Date Adriana Palencia MD [address] [place] [address] PCP - General Family Medicine 06/01/18 documented as of this encounter
--- OUTSIDE RECORDS SUMMARY | 2024-07-29 16:17 | XMS_ITS | Encounter Summary ---
Author Organization [employer] [facility] Address [address] [facility] [address]t [place] [address] Care Team Providers Care Business Law Teacher Name Role Phone Adriana Palencia MD Primary Care Provide r Encounter Details Date Type Department Care Team (Late st Contact Info) Description 03/17/2022 Abstract [facility] MEDICINE [address] [place] [address] ProviderGurvinder MD Social History Tobacco Use Types [...] on filedocumented in this encounter Care Teams Business Law Teacher Relationship Specialty Start Date End Date Adriana Palencia MD [address] [place], [place] [phone] PCP - General Family Medicine 06/01/18 documented as of this encounter
--- OUTSIDE RECORDS SUMMARY | 2024-07-29 16:17 | XMS_ITS | Encounter Summary ---
Author Organization [employer] Address [address] [facility] [address] [place] [address] Care Team Providers Care Manager Budget Name Role Phone Adriana Palnecia MD Primary Care Provide r Encounter Details Date Type Department Care Team (Latest Contact Info) Description 07/29/2024 Travel Social History Tobacco Use Types Packs/Day Years [...] documented as of this encounter Care Teams Manager Budget Relationship Specialty Start Date End Date Adriana Palencia MD [address] [place] [address] PCP - General Family Medicine 06/01/18 documented as of this encounter
--- OUTSIDE RECORDS SUMMARY | 2024-07-29 16:17 | XMS_ITS | Clinical Summary ---
Author Organization [employer] [facility] Address [address] [place] [address] Care Team Providers Care Manager Leasing Name Role Phone Unavailable Primary Care Provider Unavailabl e Social History Tobacco Use Types Packs/Day Years Used Date Smoking Tobacco: Never Assessed Sex and Gender Information Value Date Recorded Sex Assigned at Not on file Gender Identity Not on file Sexual Orientation Not on file Plan of Treatment Health Maintenance Due Date Last Done Comments Hepatitis B Vaccines (1 of 3 - 3-dose series) 1970 Hepatitis C Screening 1970 COVID-19 Vaccine (#1) 1970 Depression Screening 1982 Preventative Health Evaluation 01/03/1988 DTap / Tdap / Td (1 - Tdap) 1989 Cervical Cancer Screening (P ap Smear) 1991 Colon Cancer Screening (Colonoscopy) 2015 Breast Cancer Screening (Mammogram) 01/03/2020 Shingrix-Zoster Vaccine (1 of 2) 01/03/2020 Influenza Vaccine (#1) 2023 Pneumococcal Vaccine Aged Out No long er eligible based on patient's age to complete this topic RSV Ped < 20 months Aged Out No longe r eligible based on patient's age to complete this topic
--- OUTSIDE RECORDS SUMMARY | 2024-07-29 16:17 | XMS_ITS | Encounter Summary ---
Author Organization [employer] Address [address] [facility] [address] [place] [address] Care Team Providers Care Qa Intern Name Role Phone Adriana Palencia MD Primary Care Provide r Reason for Visit * Reason Comments Med Refill Encounter Details Date Type Department Care Team ([facility] st Contact Info) Description 07/29/[address] [facility] MEDICINE [address] [place] [address] Adriana Palencia MD [address] [place] [address] Class 1 obesity due to excess calories [...] documented as of this encounter Care Teams Qa Intern Relationship Specialty Start Date End Date Adriana Palencia MD [address] [place] [id number] PCP - General Family Medicine 06/01/18 documented as of this encounter
--- OUTSIDE RECORDS SUMMARY | 2024-07-29 16:17 | XMS_ITS | Data Portability ---
Author Organization [facility] Address [address] [place] [address] Care Team Providers Care Vending Route Servicer Name Role Phone HIM [facility] OTHER [facility] OTHER Assessment Encounter Date Assessment Date Assessment LastModified by Organization Details LastModified Time 02/06/2024 02/06/2024 I provided real -time medical direction via phone for this encounter and was available for additional phone-based assistance as needed. I have reviewed and agree with the Assessment and Plan as documented by the Optimization Analyst. Patient given the opportunity to ask questions. Our service contacted for an assessment of: blood pressure check As per above, patient with h/o PEDRO PABLO and anxiety d/o. Wanted to checked and have her BP checked. Denies CP, SOB. Per center aisle cashier on the scene, vitals are stable. Please see center aisle cashier note for details guarding conversation and outcome [...] Not available Not available Not available 02/06/2024 [id number] RxNorm Melany Covarrubias MD [address] [facility],[address], [place], [address] , [facility] [email or web address] 4 09:58:03 6689 diphenhyd ramine medicatio n Not available Not available Not available 02/06/2024 [id number] RxNorm Not Available [facility] - production 4 03:38:24 Medications Name Sig Start Date Stop Date Status Note LastModified by Organization Details LastModified Time blood pr monit omr [id number] USE TO CHECK BLOOD PRESSURE EVERY DAY [...] -caffeine 50 mg-325 mg-40 mg tablet TOME LUKE TABLETA CADA SEIS HORAS [...] SNOMED-CT Code Diagnosis ICD10 Code Diagnosis Note [id number] Melany Covarrubias MD Main - [facility] [address] [place] [phone] 02/06/2024 09:19:38 02/06/2024 10:34:09 Generalized anxiety disorder [id number] F41.1 Health Concerns Section Related Observation LastModified by Organization Detai ls LastModified Time None Recorded Concern Status LastModified by Organization Details LastModified Time None Recorded Advance Directives Directive None Recorded Payers Encounter Date Sequence Insurance Name Policy Number Policy Rosa Covered Member ID Rosa Member ID Guarantor Name 02/06/2024 1 [facility] - DOS ON OR AFTER 2022 - DUAL ELIGIBLE - [employer] AND ONE [employer] (MEDICARE REPLACEMENT/ADV ANTAGE - HMO) Sudha Kinney [id number] Sudha Kinney Notes Date Note Type Note [...] accommodate a visit this evening, call via Code Enforcement Inspector [id number], RED flags discussed, she is agreeable to a visit tomorrow 02/05- Optimization Analyst Organization Information for [facility] Legal Name: [facility] [employer] Address: [address] [place] [address], [place]NE Worthy [address], Auction Block Clerk: Kem Verdugo MD [facility] No.: [id number] Optimization Analyst POC Test Results from [facility] - LINETTE Test (09:36:50) Test: - Rapid influenza antigen (09:36:52) Flu: - Rapid strep test (09:36:53) Strep: - ..................... ..................... ..................... ..................... ..................... ..................... ............... Optimization Analyst Note From [facility]: Pt reports hx [...] ..................... ..................... ..................... ..................... ............... Disposition: Fulfilled Melany Covarrubias MD [address] [facility], [place], [address], [facility] 02/06/2024 10:17:46 OBGyn Episode No OBEpisode recorded.
--- OUTSIDE RECORDS SUMMARY | 2024-07-29 16:17 | XMS_ITS | Encounter Summary ---
Author Organization [employer] Address [address] [facility] [address] [address] [place] [address] Care Team Providers Care Department Head College Or University Name Role Phone Adriana Palencia MD Primary Care Provide r Reason for Visit * Reason Comments Med Refill Encounter Details Date Type Department Care Team ([facility] Contact Info) Description 03/10/2024 Refill [facility] [address] [place] [address] Adriana Palencia MD [address] [place] [address] Vitamin B12 deficiency Social History Tobacco Use [...] documented as of this encounter Care Teams Department Head College Or University Relationship Specialty Start Date End Date Adriana Palencia MD [address] [place] [address] PCP - General Family Medicine 06/01/18 documented as of this encounter
--- OUTSIDE RECORDS SUMMARY | 2024-07-29 16:17 | XMS_ITS | Encounter Summary ---
Author Organization [employer] Address [address] [place] [address] 7t [place] [address] Care Team Providers Care Hvac Project Manager Name Role Phone Adriana Palencia MD Primary Care Provide r Reason for Visit * Reason Comments Med Refill Encounter Details Date Type Department Care Team ([facility] st Contact Info) Description 11/24/2022 Refill [facility] MEDICINE [address] [place] [address] Lilia Mcgregor FNP [address] [place] [address] Dept [place] [address] Migraine without aura and without status migrainosus, [...] documented as of this encounter Care Teams Hvac Project Manager Relationship Specialty Start Date End Date Adriana Palencia MD [address] [place] [address] PCP - General Family Medicine 06/01/18 documented as of this encounter
--- OUTSIDE RECORDS SUMMARY | 2024-07-29 16:17 | XMS_ITS | Encounter Summary ---
Author Organization [employer] Address [address] [facility] [address] [place] [address] Care Team Providers Care Manager Inspection Name Role Phone Adriana Palencia MD Primary Care Provide r Reason for Visit * Reason Comments Med Refill Encounter Details Date Type Department Care Team ([facility] st Contact Info) Description 07/19/2024 Refill [facility] MEDICINE [address] [place] [address] Adriana Palencia MD [address] [place] [address] Class 1 obesity due to excess calories [...] as of this encounter Care Teams Manager Inspection Relationship Specialty Start Date End Date Adriana Palencia MD [address] [place] [id number] PCP - General Family Medicine 06/01/18 documented as of this encounter
--- OUTSIDE RECORDS SUMMARY | 2024-07-29 16:17 | XMS_ITS | Encounter Summary ---
Author Organization [employer] Address [address] [facility] 7t [place] [address] Care Team Providers Care Outdoor Emergency Care Technician Name Role Phone Adriana Palencia MD Primary Care Provide r Reason for Visit * Reason Comments Med Refill Encounter Details Date Type Department Care Team ([facility] st Contact Info) Description 12/02/2022 Refill [facility] MEDICINE [address] [place] [address] Bree Ag MD [address] [place] [address] Generalized anxiety disorder Social History Tobacco Use [...] documented as of this encounter Care Teams Outdoor Emergency Care Technician Relationship Specialty Start Date End Date Adriana Palencia MD [address] [place] [address] PCP - General Family Medicine 06/01/18 documented as of this encounter
== END 2024-07-29 14:00 | disposition home or self-care (01) ==
LOC: HO.HHCX 13:59
PROVIDERS: Visit Provider Nurse Practitioner Family
DX: R20.2 Paresthesia of skin (principal); M25.511 Pain in right shoulder
CPT/HCPCS: 73030

== ENCOUNTER → 2024-07-29 13:59 | Outpatient (BNV) | payer OTHER, SELFPAY | PROVIDERS: Visit Provider Radiology Diagnostic Radiology | DX: M25.511 Pain in right shoulder (principal) | CPT/HCPCS: 73030 ==

== ENCOUNTER 2024-09-16 09:35 | Outpatient (AMB) | payer OTHER, SELFPAY ==
--- NOTE | 2024-09-16 09:39 | MHC.OFFVIS ---
Intake Visit Reasons: New prob-RT shoulder pain Intake Note: Sudha is a 54 year old right hand dominant female who presents today for a new problem visit with complaints of right shoulder pain. Patient reports that she has had ongoing pain in the bicep for about 1 month now. she was referred to Physical Therapy but no showed her Initial Eval with them, however she states that she has attended 5 sessions with another office. She has previously been treated for Left frozen shoulder. Allergies diphenhydramine [From BENADRYL] Allergy (Intermediate, Verified 06/10/24 11:12) SEVERE LETHARGY oxycodone [From Percocet] Adverse Reaction (Verified 06/10/24 11:12) Anxiety HPI HPI New prob-RT shoulder pain: Details: Sudha is a 54 year old right hand dominant female who presents today for a new problem visit with complaints of right shoulder pain. Patient reports that she has had ongoing pain in the bicep for about 1 month now. she was referred to Physical Therapy but no showed her Initial Eval with them, however she states that she has attended 5 sessions with another office. Her actual pain is over the distal aspect of the deltoid and slightly anterior into the biceps. She states she feels fullness and pain Yuliya it has bothered much. She has previously been treated for Left frozen shoulder. [facility] Medical History Panic attacks Asthma Depression Vitamin D deficiency Hypothyroidism Thyroid activity decreased Surgical History Hx of cervical polypectomy Hx of lithotripsy Hx of gastric bypass Family History Father Leukemia Cancer Mother Diabetes mellitus Hypertension Social History Household Members: Spouse Housing: Apartment Alcohol intake: former Comment: medicated with ketorolac and po tylenol Patient Tobacco Use Status: Never used Tobacco Current occupational status: unemployed Sexual orientation: Straight/Heterosexual Gender identity: Female Female Reproductive History Menstrual Age of Menarche: 12 Physical Exam Extrem Other: A full range of motion right shoulder. She has no bicipital groove tenderness to palpation. She does have tenderness along the deltoid insertion into the humerus distally and anteriorly. There is no palpable mass. She has full range of motion of the elbow. Results Reviewed Results Reviewed: /rad Unremarkable examination of the right shoulder/ proximal humerus Assessment & Plan Assessment & Plan (1) Strain of right deltoid muscle: Code(s): S46.811A - Strain of other muscles, fascia and tendons at shoulder and upper arm level, right arm, initial encounter Category: Medical Plan: 54-year-old with months of ongoing pain over the deltoid. She is adamant that something is wrong and an MRI was ordered. My suspicion however is that this is a deltoid strain. Follow up after. Orders: Orders MR humerus RT wo con 09/16/24 S46.811A - Strain of other muscles, fascia and tendons at shoulder and upper arm level, right arm, initial encounter PT Evaluation and Treatment 09/16/24 S46.811A - Strain of other muscles, fascia and tendons at shoulder and upper arm level, right arm, initial encounter Coding Level of Care Code Est Pt Level 3 (77938) Diagnoses Strain of right deltoid muscle S46.811A
--- OUTSIDE RECORDS SUMMARY | 2024-09-16 10:16 | XMS_ITS | Clinical Summary ---
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 Active ergocalciferol (Vitamin D-2) 1.25 MG (66801 UT) capsule take 1 capsule by oral [...] every 6 (six) hours. 020 Active Lactobacillus-Inu krisetn ([facility]) capsule take 1 capsule 2 times a [...] A ORAL DOS VECES AL D A 023 Active escitalopram (Lexapro) 5 MG tablet TOME [...] 8 (eight) hours. 75 mL 2 Active cyanocobalamin ([facility] Vitamin B-12) 1000 MCG tabletIndications :Vitamin B12 deficiency Take 1 tablet (1,000 mcg) by mouth Once per day. 30 tablet 3 024 2024 Active Blood Pressure Monitoring (Blood Pressure Cuff) miscIndications:E levated blood pressure reading 1 each Once daily. 1 each Active Diclofenac Sodium 1 % gel APPLY 2 GRAMS TOPICALLY TO AFFECTED AREA(S) TWICE DAILY NEEDED 100 g 2 Active SUMAtriptan (Imitrex) 50 MG tablet Take [...] per day. 10 tablet 025 2025 Active valACYclovir (Valtrex) 500 MG tablet TAKE 1 TABLET BY MOUTH EVERY DAY 90 tablet 1 025 Active omeprazole (PriLOSEC) [address] capsuleIndication s:Gastroesophagea l reflux disease without esophagitis TOME 1 CAPSULA POR VIA ORAL TODOS LOS DIAZ BEFORE A MEAL 90 capsule 1 025 Active baclofen (Lioresal) 10 MG tabletIndications :Muscle spasm,Pain TOME 1 TABLETA POR VIA ORAL DENNYS VECES AL KENAN CUANDO SEA NECESARIO 270 tablet 025 Active levothyroxine (Synthroid) 125 MCG tabletIndications :Acquired hypothyroidism Take 1 tablet (125 mcg) by mouth before breakfast. 30 tablet 3 025 2025 Active Tirzepatide-Weigh t Management (Zepbound) 2.5 MG/0.5ML solution auto-injectorIndi cations:Class 1 obesity due to excess calories with serious comorbidity and body mass index (BMI) of 32.0 to 32.9 in adult Inject 0.5 mL (2.5 mg) under the skin 1 (one) time per week. 2 mL 025 Active ibuprofen 800 MG tabletIndications :Fibromyalgia Take 1 tablet (800 mg) by mouth 3 times daily. 90 tablet 025 2024 Active albuterol (Ventolin HFA) 108 (90 Base) MCG/ACT inhalerIndication s:Mild intermittent asthma, unspecified whether complicated INHALE 2 PUFFS BY MOUTH EVERY 4 HOURS 18 g 1 025 Active albuterol (ProAir HFA) 108 (90 Base) MCG/ACT inhalerIndication s:Mild intermittent asthma, unspecified whether complicated Inhale 2 puffs every 4 (four) hours. 18 g 1 024 2024 Discontinued levothyroxine (Synthroid, Levoxyl) 137 MCG tabletIndications :Acquired hypothyroidism TAKE 1 TABLET BY MOUTH EVERY DAY BEFORE BREAKFAST 90 tablet 1 024 2024 Discontinued Tirzepatide-Weigh t Management (Zepbound) 2.5 MG/0.5ML solution auto-injectorIndi cations:Class 1 obesity due to excess calories with serious comorbidity and body mass index (BMI) of 32.0 to 32.9 in adult Inject 0.5 mL (2.5 mg) under the skin 1 (one) time per week. 2 mL 025 2024 Discontinued(R eorder (will not trigger notification to Pharmacy)) Active Problems Problem Noted Date Diagnosed Date [...] life style modifications, diet and referral to transition specialist. Recommended to decrease soda and sugary [...] qhs and Fu with PCP in 4-5 [facility] Gastroesophageal reflux disease 04/30/2013 Mixed anxiety and depressive disorder 07/04/2012 Assessment & Plan (06/16/2023 10:25 AM EST): Continue to follow with psychiatrist and therapist Acquired hypothyroidism 12/30/2011 Cobalamin deficiency 12/30/2011 Iron deficiency anemia 12/30/2011 Encounters Date Type Department Care Team Description 09/12/2024 Refill [facility] [address] [place] [address] Adriana Palencia MD Acquired hypothyroidism 09/11/2024 Refill [facility] [address] [place] [address] Adriana Palencia MD Mild intermittent asthma, unspecified whether complicated 09/10/2024 Refill [facility] [address] [place] [address] Adriana Palencia MD Class 1 obesity due to excess calories with serious comorbidity and body mass index (BMI) of 32.0 to 32.9 in adult 09/10/2024 Orders Only [facility] [address] [place] [address] Adriana Palencia MD Fibromyalgia (Primary Dx); Class 1 obesity due to excess calories with serious comorbidity and body mass index (BMI) of 32.0 to 32.9 in adult 09/10/2024 Orders Only [facility] [address] [place] [address] Adriana Palencia MD Acquired hypothyroidism (Primary Dx) 09/07/2024 Refill [facility] [address] [place] [address] Adriana Palencia MD Polyarthralgia; Class 1 obesity due to excess calories with serious comorbidity and body mass index (BMI) of 32.0 to 32.9 in adult 08/15/2024 Refill [facility] [address] [place] [address] Tiffanie Robledo DO Muscle spasm; Pain 08/09/2024 Refill [facility] [address] [place] [address] Adriana Palencia MD Gastroesophageal reflux disease without esophagitis 08/06/2024 Refill [facility] [address] [place] [address] Adriana Palencia MD Class 1 obesity due to excess calories with serious comorbidity and body mass index (BMI) of 32.0 to 32.9 in adult 08/03/2024 Refill [facility] [address] [place] [address] Adriana Palencia MD Class 1 obesity due to excess calories with serious comorbidity and body mass index (BMI) of 32.0 to 32.9 in adult 08/02/2024 Refill [facility] [address] [place] [address] Adriana Palencia MD Class 1 obesity due to excess calories with serious comorbidity and body mass index (BMI) of 32.0 to 32.9 in adult 08/02/2024 Refill [facility] [address] [place] [address] Adriana Palencia MD Class 1 obesity due to excess calories with serious comorbidity and body mass index (BMI) of 32.0 to 32.9 in adult 07/30/2024 Telephone [facility] [address] [place] [phone] Manju Jennings NP 07/29/2024 1:20 PM EDT Office Visit [facility] [address] [place] [phone] Manju Jennings NP Paresthesia (Primary Dx); Acute pain of right shoulder 07/29/2024 Refill [facility] [address] [place] [phone] Adriana Palencia MD Class 1 obesity due to excess calories with serious comorbidity and body mass index (BMI) of 32.0 to 32.9 in adult 07/29/2024 Travel 07/29/2024 Telephone [facility] [place] [address] Adriana Palecnia MD Nurse Triage 07/19/2024 Refill [facility] [address] [place], [place] [address] [address] Adriana Palencia MD Class 1 obesity due to excess calories with serious comorbidity and body mass index (BMI) of 32.0 to 32.9 in adult 07/16/2024 Telephone [facility] [place] [address] Adriana Palencia MD Prior Authorization (CCA PA Request: Zepbound) 07/12/2024 Orders Only [facility] [place] [address] Adriana Palencia MD Class 1 obesity due to excess calories with serious comorbidity and body mass index (BMI) of 32.0 to 32.9 in adult 07/12/2024 Refill [facility] [place] [address] Adriana Palencia MD Class 1 obesity due to excess calories with serious comorbidity and body mass index (BMI) of 32.0 to 32.9 in adult 07/02/2024 10:00 AM EDT Office Visit [facility] [place] [address] Adriana Palencia MD Overweight with body mass index (BMI) of 28 to 28.9 in adult (Primary Dx); Polyarthralgia 07/02/2024 Travel 06/21/2024 Telephone [facility] [place] [address] Adriana Palencia MD ER Follow-up 06/16/2024 Refill [facility] [place] [address] Adriana Palencia MD Polyarthralgia from Last 3 Months Immunizations Immunization Administration Dates Next Due Hep B, adult [...] 1970 FIT 1970 FOBT 1970 Sigmoidoscopy 1970 Disability Screening 1970 Zoster Vaccines (2 of 2) 04/03/2023 02/06/2023 COVID-19 Vaccine ( season) 2023 08/04/2020, 07/07/2020 Depression Monitoring 12/17/2023 06/16/2023, 024 SDOH Screening 06/08/2024 06/08/2023 Influenza Vaccine (Season Ended) 2024 02/06/2023 Mammogram 02/21/2025 02/22/2024, 1105/2022, 08/27/2020, Additional history exists Alcohol/Substance Use Screening 03/29/2025 03/29/2024 Tobacco Screening 04/16/2025 04/16/2024 Cervical Cancer Screening 07/02/2026 HPV/Cotest 07/02/2026 07/02/2021, 03/1 11/2021, 07/02/2021 Pap Smear 07/02/2026 07/02/2021 Lipid Panel [...] EDT Paresthesia Acute pain of right shoulder BI MAMMOGRAM SCREENING TOMOSYNTHESIS BILATERAL Routine 02/22/2024 [...] PM EDT Narrative 07/29/2024 2:45 PM EDT ?[facility] ?[address] ?[place] [address] ?XRay Report ? Signed ? Patient: Sudha Dean ?MR#: [id number] ?? [id number] ? : 1970 ?Acct:[id number] ? Age/Sex: 54 / F ?ADM Date: 07/29/24 ? Loc: HO.HHCX ? Attending Dr: Manju Jennings MILLING OPERATOR ? Ordering Physician: Manju Jennings NP ?? Date of Service: 07/29/24 ?? Procedure(s): XR shoulder RT min 2V ?? Accession Number(s): [id number] ? cc: Manju Jennings NP ? EXAMINATION: ??XR SHOULDER 2 OR MORE [...] DD/ 1359 ? TD/TT: 07/29/24 1400 ? A P Manager: ? Procedure Note Preethi, Image - 07/29/[address] [address] XRay Report Signed Patient: Sudha Dean [facility]#: [id number] : 1970Acct:[id number] Age/Sex: 54 / FADM Date: 07/29/24 Loc: HO.HHCX Attending Dr: Manju Jennings NP Ordering Physician: Manju Jennings NP Date of Service: 07/29/24 Procedure(s): XR shoulder RT min 2V Accession Number(s): [id number] cc: Manju Jennings NP EXAMINATION: XR SHOULDER 2 OR MORE VIEWS [...] 07/29/24 1442 DD/ 1359 TD/TT: 07/29/24 1400 A P Manager: Manju Jennings NP IMG XR PROCEDURES Edited Result - Final * BI Mammogram Screening Tomosynthesis Bilateral (02/22/2024 8:40 AM EST) Anatomical Region Laterality Modality Breast Bilateral Mammography 02/22/2024 8:40 AM EST Narrative 03/01/2024 4:10 PM EST ? [facility] ? [address] ?[place] [address] ? Mammography Report ? Signed ? Patient: Nirmal Regan,Sudha N ?MR#: [id number] ?? [id number] ? : 1970 ?Acct:[id number] ? Age/Sex: 54 / F ?ADM Date: 02/21/ ? Loc: HO.MAMMO ? Attending Dr: Adriana Sanches MD ? Ordering Physician: Adriana Palencia MD ?Results: ?? 1Negative ? Date of Service: 02/22/24 ?Follow Up: 1 Year From Orig ?? inal Mammogram ? Procedure(s): MM tomosynthesis screening BI ?? Accession Number(s): [id number] ? cc: Adriana Palencia MD ? EXAMINATION: [...] DD/ 0840 ? TD/TT: 02/22/24 0903 ? A P Manager: ? Procedure Note Donotuseinterpreter, Image - 03/01/2024 [facility] [address] [place] [address] Mammography Report Signed Patient: Sudha Dean NMR#: [id number] : 1970Acct:[id number] Age/Sex: 54 / FADM Date: 02/22/24 Loc: [facility] Attending Dr: Adriana Sanches MD Ordering Physician: Adriana Palencia MDResults: 1Negative Date of Service: 02/22/24Follow Up: 1 Year From Orig inal Mammogram Procedure(s): MM tomosynthesis screening BI Accession Number(s): [id number] cc: Adriana Palencia MD EXAMINATION: MM SCREENING [...] 03/01/24 1607 DD/ 0840 TD/TT: 02/22/24 0903 A P Manager: us Adriana Sanches MD IMG BI PROCEDURES Fin al Result * (ABNORMAL) Lipid Panel with Reflex to Direct LDL (12/13/2023 12:18 PM EDT) Triglycerides 52 <150 mg/dL [facility] Comment:Desirable Triglyceri de: less than 150 mg/dLBorderline High Triglyceride 150-199 mg/dLHigh Triglyceride: 200-499 mg/dLVery High Triglyceride: greater than or equal to 5OO mg/dL Cholesterol 187 <200 mg/dL [facility] Comment:Desirable Cholestero l: less than 200 mg/dLBorderline High Cholesterol: 200-239 mg/dLHigh Cholesterol: greater than 239 mg/dL LDL Cholesterol Calculated 109(H) <100 mg/dL [facility] Comment:Desirable LDL: less than 100 mg/dLNear Optimal/Above Optimal LDL: 110- 129 mg/dLBorderline High LDL: 130-159 mg/dLHigh LDL: 160-189 mg/dLVery High LDL: greater than or equal to 190 mg/dL HDL Cholesterol 68 >40 mg/dL [facility] Comment:Desirable HDL: great er than 40 mg/dL Note: This HDL assay may give artificially low results in patients with liver disease. Blood 12/13/2023 12:1 8 PM EDT 12/13/2023 1:25 PM EDT us Adriana Sanches MD LAB BLOOD ORDERABLES Final Result [facility] [address] [place] [phone] * Hepatitis C Viral RNA, Quantitative, Real-Time PCR (12/13/2023 12:18 PM EDT) Hepatitis C Viral Load <15 NOT DETECTED NOT DETECTED IU/mL [facility] HCV Log PCR <1.18 NOT DETECTED NOT DETECTED Log IU/mL [facility] Comment:For additional infor gera, please refer [email or web address](This link is being provided for informational/educational purposes only.)THIS TEST WAS PERFORMED AT:[facility] [place] [phone] KENNEDY MD Blood 12/13/2023 12:1 8 PM EDT 12/13/2023 1:25 PM EDT Adriana Sanches MD LAB BLOOD ORDERABLES Final Result [facility] [address] [place] [address] [phone] * HIV-1/2 Antigen and Antibodies, Fourth Generation, with Reflexes (12/13/2023 12:18 PM EDT) Pathologist [facility] HIV AB/AG Nonreactive Nonreactive [facility] Comment:HIV-1 p24 Ag and/or HIV-1/HIV-2 Ab not detected.A test result that is nonreactive does not exclude thepossibility of exposure to or infection with HIV-1 and/orHIV-2. Nonreactive results in this assay for individualswith prior exposure to HIV-1 and/or HIV-2 may be due toantigen and antibody levels that are below the limit ofdetection of this assay.The [employer] HIV Ag/Ab Combo assay result andsupplemental assay results should be interpreted inconjunction with the patient's clinical presentation,history and other laboratory results. If the results areinconsistent with clinical evidence, additional testing issuggested to confirm the result. Blood Venous blood specimen / Unknown 12/13/2023 12:18 PM EDT 12/13/2023 1:15 PM EDT us Adriana Sanches MD LAB BLOOD ORDERABLES Final Result [facility] [address] [place] [address] [phone] * Hm Pap Smear (07/02/2021) Pap Negative for intraephithelial lesion or malignancy Negative for intraephithelial lesion or malignancy, Other HPV Undetected us Historical Provider HEALTH MAINTENANCE Final Result from Last 3 Months or Most Recently Relevant to Health Maintenance Insurance [facility] STANDARD CCA ONE CARE < 65 CCA ONE CARE < 65 Care Teams Pastry Cook Helper Relationship Specialty Start Date End Date Adriana Palencia MD [address] [place] [id number] PCP - General Family Medicine 06/01/18
== END 2024-09-16 11:49 | disposition home or self-care (01) ==
LOC: HO.HOS 09:36
PROVIDERS: PCP Internal Medicine; Visit Provider Orthopaedic Surgery
DX: S46.811A Strain of other muscles, fascia and tendons at shoulder and upper arm level, right arm, initial encounter (principal)
CPT/HCPCS: 99213

== ENCOUNTER → 2024-09-16 09:35 | Outpatient (BNVA) | payer OTHER, SELFPAY | PROVIDERS: PCP Internal Medicine; Visit Provider Orthopaedic Surgery | DX: S46.811A Strain of other muscles, fascia and tendons at shoulder and upper arm level, right arm, initial encounter (principal); X58.XXXA Exposure to other specified factors, initial encounter; Y93.9 Activity, unspecified; Y92.9 Unspecified place or not applicable; Y99.9 Unspecified external cause status | CPT/HCPCS: 99212 ==

== ENCOUNTER → 2024-10-08 13:07 | Outpatient (BNV) | payer OTHER, SELFPAY | PROVIDERS: PCP Internal Medicine; Visit Provider Radiology Diagnostic Radiology | DX: M75.51 Bursitis of right shoulder (principal) | CPT/HCPCS: 73218 ==

== ENCOUNTER 2024-10-08 13:25 | Outpatient (REF) | payer OTHER, SELFPAY ==
--- NOTE | ~2024-10-08 | MR_ITS ---
Exam: MRI humerus, right, without contrast. TECHNIQUE: Multiplanar multisequence MRI was performed through an upper extremity without contrast INDICATION: Right upper arm pain for 1.5 months, no trauma Prior: Negative Shoulder x-ray 07/29/2024 FINDINGS: Rotator cuff is not well-demonstrated on this particular view MRI of the right upper arm. Supraspinatus tendon appears attenuated and may be torn or partially torn. There is a small amount of fluid in the subcoracoid bursa. Borderline effusion is present in the subacromial subdeltoid bursa. Long biceps tendon is grossly intact. There is no muscle edema, atrophy, or fatty streaking. The distal triceps tendon appears grossly intact. Subcutaneous soft tissues are unremarkable. No abnormality is evident along major neurovascular structures. Bone marrow signal is physiologic. MR/MR humerus RT wo con Impression: Possible supraspinatus tendon tear. Consider dedicated right shoulder MRI. Borderline subacromial subdeltoid bursal effusion. Subcoracoid bursal effusion. Electronically signed by: Parminder Velasco MD 10/08/2024 02:22 PM EDT
--- OUTSIDE RECORDS SUMMARY | 2024-10-08 15:34 | XMS_ITS | Clinical Summary ---
Author Organization [employer] Address [address] [place] [address] 7[address] [place] [address] Care Team Providers Care Electoral Officer Name Role Phone Adriana Palencia MD [...] hours. Active ergocalciferol (Vitamin D-2) 1.25 MG (41521 UT) capsule take 1 capsule by oral [...] 6 (six) hours. 020 Active Lactobacillus-Inu kristen ([facility]) capsule take 1 capsule 2 [...] life style modifications, diet and referral to service center specialist. Recommended to decrease soda and sugary [...] qhs and Fu with PCP [facility] 4-[facility] Gastroesophageal reflux disease 04/30/2013 Mixed anxiety and depressive disorder 07/04/2012 Assessment & Plan (06/16/2023 10:25 AM EST): Continue to follow with psychiatrist and therapist Acquired hypothyroidism 12/30/2011 Cobalamin deficiency 12/30/2011 Iron deficiency anemia 12/30/2011 Encounters Date Type Department Care Team Description 10/08/2024 Orders Only [facility] External Provider, [facility] 10/04/2024 Telephone [facility] [address] [place] [address] Adriana Palencia MD Lab Orders (/) 09/12/2024 Refill [facility] [address] [place] [address] Adriana Palencia MD Acquired hypothyroidism 09/11/2024 Refill [facility] [address] [place] [address] Adriana Palencia MD Mild intermittent asthma, unspecified whether complicated 09/10/2024 Refill [facility] [address] [place] [address] Adriana Palencia MD Class 1 obesity due to excess calories with serious comorbidity and body mass index (BMI) of 32.0 to 32.9 in adult 09/10/2024 Orders Only [facility] [address] [place] [address] Adriana Palencia MD Fibromyalgia (Primary Dx); Class 1 obesity due to excess calories with serious comorbidity and body mass index (BMI) of 32.0 to 32.9 in adult 09/10/2024 Orders Only [facility] [address] [place] [address] Adriana Palencia MD Acquired hypothyroidism (Primary Dx) 09/07/2024 Refill [facility] [address] [place] [address] Adriana Palencia MD Polyarthralgia; Class 1 obesity due to excess calories with serious comorbidity and body mass index (BMI) of 32.0 to 32.9 in adult 08/15/2024 Refill [facility] [address] [place] [address] Tiffanie Robledo DO Muscle spasm; Pain 08/09/2024 Refill [facility] [address] [place] [address] Adriana Palencia MD Gastroesophageal reflux disease without esophagitis 08/06/2024 Refill [facility] [address] [place] [address] Adriana Palencia MD Class 1 obesity due to excess calories with serious comorbidity and body mass index (BMI) of 32.0 to 32.9 in adult 08/03/2024 Refill [facility] [address] [place] [address] Adriana Palencia MD Class 1 obesity due to excess calories with serious comorbidity and body mass index (BMI) of 32.0 to 32.9 in adult 08/02/2024 Refill [facility] [address] [place] [address] Adriana Palencia MD Class 1 obesity due to excess calories with serious comorbidity and body mass index (BMI) of 32.0 to 32.9 in adult 08/02/2024 Refill [facility] [address] [place] [address] Adriana Palencia MD Class 1 obesity due to excess calories with serious comorbidity and body mass index (BMI) of 32.0 to 32.9 in adult 07/30/2024 Telephone [facility] [address] [place] [address] Manju Jennings NP 07/29/2024 1:20 PM EDT Office Visit [facility] [address] [place] [phone] Manju Jennings NP Paresthesia (Primary Dx); Acute pain of right shoulder 07/29/2024 Refill [facility] [address] [place] [phone] Adriana Palencia MD Class 1 obesity due to excess calories with serious comorbidity and body mass index (BMI) of 32.0 to 32.9 in adult 07/29/2024 Travel 07/29/2024 Telephone [facility] [address] [place] [address] [phone] Adriana Palencia MD Nurse Triage 07/19/2024 Refill [facility] [address] [place] [address] [phone] Adriana Palencia MD Class 1 obesity due to excess calories with serious comorbidity and body mass index (BMI) of 32.0 to 32.9 in adult 07/16/2024 Telephone [facility] [address] [place] [address] [phone] Adriana Palencia MD Prior Authorization ([facility] Request: [employer]) 07/12/2024 Orders Only [facility] [address] [place] [address] [phone] Adriana Palencia MD Class 1 obesity due to excess calories with serious comorbidity and body mass index (BMI) of 32.0 to 32.9 in adult 07/12/2024 Refill [facility] [address] [place] [address] [phone] Adriana Palencia MD Class 1 obesity due to excess calories with serious comorbidity and body mass index (BMI) of 32.0 to 32.9 in adult from Last 3 Months Immunizations Immunization Administration [...] 68 07/29/2024 1:01 PM EDT Temperature 36.3 C (97.4 F) 07/29/2024 1:01 PM EDT Respiratory Rate 17 07/29/2024 1:01 PM EDT [...] Cervical Cancer Screening 07/02/2026 HPV/Cotest 07/02/2026 07/02/2021, 0311/2021, 07/02/2021 Pap Smear 07/02/2026 07/02/2021 Lipid Panel [...] Procedure Name Priority Date/Time Associated Diagnosis Comments MR HUMERUS WO CONTRAST RIGHT Routine 10/08/2024 1:30 PM EDT XR SHOULDER 2+ VIEWS RIGHT Routine 07/29/2024 [...] Recently Relevant to Health Maintenance Results * MR Humerus w/o Contrast Right (10/08/2024 1:30 PM EDT) Anatomical Region Laterality Modality Upper Extremities, Humerus Right Magne tic Resonance 10/08/2024 1:30 PM EDT Narrative 10/08/2024 2:25 PM EDT [address] [address] Magnetic Resonance Report Signed Patient: Sudha Dean MR#: [id number] : 1970 Acct:[id number] Age/Sex: 54 / F ADM Date: 10/08/24 Loc: HO.MRI Attending Dr: Kane Downey MD Ordering Physician: Kane Downey MD Date of Service: 10/08/24 Procedure(s): MR humerus RT wo con Accession Number(s): [id number] cc: Adriana Palencia MD; Kane Downey MD Exam: MRI humerus, right, without contrast. TECHNIQUE: Multiplanar multisequence MRI was performed through an upper extremity without contrast INDICATION: Right upper arm pain for 1.5 months, no trauma Prior: Negative Shoulder x-ray 07/29/2024 FINDINGS: Rotator cuff is not well-demonstrated on this particular view MRI of the right upper arm. Supraspinatus tendon appears attenuated and may be torn or partially torn. There is a small amount of fluid in the subcoracoid bursa. Borderline effusion is present in the subacromial subdeltoid bursa. Long biceps tendon is grossly intact. There is no muscle edema, atrophy, or fatty streaking. The distal triceps tendon appears grossly intact. Subcutaneous soft tissues are unremarkable. No abnormality is evident along major neurovascular structures. Bone marrow signal is physiologic. MR/MR humerus RT wo con Impression: Possible supraspinatus tendon tear. Consider dedicated right shoulder MRI. Borderline subacromial subdeltoid bursal effusion. Subcoracoid bursal effusion. Electronically signed by: Parminder Velasco MD 10/08/2024 02:22 PM EDT Dictated By: Parminder Velasco MD Signed By: <Electronically signed by Parminder Velasco MD in OV> 10/08/24 1422 DD/ 1330 TD/TT: 10/08/24 1400 Automatic Splicing Machine Operator: Procedure Note Donotuseinterpreter, Image - 10/08/[address] [address] Magnetic Resonance Report Signed Patient: Sudha Dean [facility]#: [id number] : 1970Acct:[id number] Age/Sex: 54 / FADM Date: 10/08/24 Loc: HO.MRI Attending Dr: Kane Downey MD Ordering Physician: Kane Downey MD Date of Service: 10/08/24 Procedure(s): MR humerus RT wo con Accession Number(s): [id number] cc: Adriana Palencia MD; Kane Downey MD Exam: MRI humerus, right, without contrast. TECHNIQUE: Multiplanar multisequence MRI was performed through an upper extremity without contrast INDICATION: Right upper arm pain for 1.5 months, no trauma Prior: Negative Shoulder x-ray 07/29/2024 FINDINGS: Rotator cuff is not well-demonstrated on this particular view MRI of the right upper arm. Supraspinatus tendon appears attenuated and may be torn or partially torn. There is a small amount of fluid in the subcoracoid bursa. Borderline effusion is present in the subacromial subdeltoid bursa. Long biceps tendon is grossly intact. There is no muscle edema, atrophy, or fatty streaking. The distal triceps tendon appears grossly intact. Subcutaneous soft tissues are unremarkable. No abnormality is evident along major neurovascular structures. Bone marrow signal is physiologic. MR/MR humerus RT wo con Impression: Possible supraspinatus tendon tear. Consider dedicated right shoulder MRI. Borderline subacromial subdeltoid bursal effusion. Subcoracoid bursal effusion. Electronically signed by: Parminder Velasco MD 10/08/2024 02:22 PM EDT Dictated By: Parminder Velasco MD Signed By: <Electronically signed by Parminder Velasco MD in OV> 10/08/24 1422 DD/ 1330 TD/TT: 10/08/24 1400 Automatic Splicing Machine Operator: us [facility] External Provider IMG MRI PROCEDURES Final Result * XR Shoulder 2+ Views Right (07/29/2024 1:59 PM EDT) Anatomical Region Laterality Modality Upper Extremities, Shoulder Right Radi ographic Imaging 07/29/2024 1:59 PM EDT Narrative 07/29/2024 2:45 PM EDT [address] [address] XRay Report Signed Patient: Sudha Dean N MR#: [id number] : 1970 Acct:[id number] Age/Sex: 54 / F ADM Date: 07/29/24 Loc: .HHCX Attending Dr: Manju Jennings COUNSELING DIRECTOR Ordering Physician: Manju Jennings NP Date of Service: 07/29/24 Procedure(s): XR shoulder RT min 2V Accession Number(s): [id number] cc: Manju Jennings COUNSELING DIRECTOR EXAMINATION: XR SHOULDER 2 OR MORE VIEWS [...] 07/29/24 1442 DD/ 1359 TD/TT: 07/29/24 1400 Automatic Splicing Machine Operator: Procedure Note Francheskater, Image - 07/29/[address] [address] XRay Report Signed Patient: Sudha Dean NMR#: [id number] : 1970Acct:[id number] Age/Sex: 54 / FADM Date: 07/29/24 Loc: HO.HHCX Attending Dr: Manju Jennings NP Ordering Physician: Manju Jennings NP Date of Service: 07/29/24 Procedure(s): XR shoulder RT min 2V Accession Number(s): [id number] cc: Manju Jennings COUNSELING DIRECTOR EXAMINATION: XR SHOULDER 2 OR MORE VIEWS [...] 07/29/24 1442 DD/ 1359 TD/TT: 07/29/24 1400 Automatic Splicing Machine Operator: Manju Jennings NP IMG XR PROCEDURES Edited Result - Final * BI Mammogram Screening Tomosynthesis Bilateral (02/22/2024 8:40 AM EST) Anatomical Region Laterality Modality Breast Bilateral Mammography 02/22/2024 8:40 AM EST Narrative 03/01/2024 4:10 PM EST [facility] [address] [place] [address] Mammography Report Signed Patient: Sudha Dean MR#: [id number] : 1970 Acct:[id number] Age/Sex: 54 / F ADM Date: 02/22/24 Loc: DIANE.MAMMO Attending Dr: Adriana Sanches MD Ordering Physician: Adriana Palencia MD Results: 1Negative Date of Service: 02/22/24 Follow Up: 1 Year From Orig inal Mammogram Procedure(s): MM tomosynthesis screening BI Accession Number(s): [id number] cc: Adriana Palencia MD EXAMINATION: MM SCREENING [...] by: Rachana Pablo DO 03/01/2024 04:07 PM [facility] Dictated By: Rachana Pablo DO Signed By: <Electronically signed by Rachana Pablo DO in OV> 03/01/24 1607 DD/ 0840 TD/TT: 02/22/24 0903 Automatic Splicing Machine Operator: Procedure Note Donotuseinterpreter, Image - 03/01/2024 [facility] [address] [place] [address] Mammography Report Signed Patient: Sudha Dean [facility]#: [id number] : 1970Acct:[id number] Age/Sex: 54 / FADM Date: 02/22/24 Loc: HOJohnnaMAMMO Attending Dr: Adriana Sanches MD Ordering Physician: Adriana Palencia MDResults: 1Negative Date of Service: 02/22/24Follow Up: 1 Year From Orig inal Mammogram Procedure(s): MM tomosynthesis screening BI Accession Number(s): [id number] cc: Adriana Palencia MD EXAMINATION: MM SCREENING [...] 03/01/24 1607 DD/ 0840 TD/TT: 02/22/24 0903 Automatic Splicing Machine Operator: us Adriana Sanches MD IMG BI PROCEDURES Fin al Result * (ABNORMAL) Lipid Panel with Reflex to Direct LDL (12/13/2023 12:18 PM EDT) Triglycerides 52 <150 mg/dL [facility] Comment:Desirable Triglyceri de: less than 150 mg/dLBorderline High Triglyceride 150-199 mg/dLHigh Triglyceride: 200-499 mg/dLVery High Triglyceride: greater than or equal to 5OO mg/dL Cholesterol 187 <200 mg/dL [facility] Comment:Desirable Cholestero l: less than 200 mg/dLBorderline High Cholesterol: 200-239 mg/dLHigh Cholesterol: greater than 239 mg/dL LDL Cholesterol Calculated 109(H) <100 mg/dL [facility] Comment:Desirable LDL: less than 100 mg/dLNear Optimal/Above Optimal LDL: 110- 129 mg/dLBorderline High LDL: 130-159 mg/dLHigh LDL: 160-189 mg/dLVery High LDL: greater than or equal to 190 mg/dL HDL Cholesterol 68 >40 mg/dL [facility] Comment:Desirable HDL: great er than 40 mg/dL Note: This HDL assay may give artificially low results in patients with liver disease. Blood 12/13/2023 12:1 8 PM EDT 12/13/2023 1:25 PM EDT Adriana Sanches MD LAB BLOOD ORDERABLES Final Result Performing Organization Address [facility] de Phone Number [facility] [address] [place] [phone] * Hepatitis C Viral RNA, Quantitative, Real-Time PCR (12/13/2023 12:18 PM EDT) [facility] Hepatitis C Viral Load <15 NOT DETECTED NOT DETECTED IU/mL [facility] HCV Log PCR <1.18 NOT DETECTED NOT DETECTED Log IU/mL [facility] Comment:For additional infor gera, please refer tohttp://education.[employer]/faq/RMW26o1(This link is being provided for informational/educational purposes only.)THIS TEST WAS PERFORMED AT:[employer] [place] [phone] KENNEDY MD Blood 12/13/2023 12:1 8 PM EDT 12/13/2023 1:25 PM EDT Adriana Sanches MD LAB BLOOD ORDERABLES Final Result Performing Organization Address [facility] de Phone Number [facility] [address] [place] [phone] * HIV-1/2 Antigen and Antibodies, Fourth Generation, with Reflexes (12/13/2023 12:18 PM EDT) [facility] HIV AB/AG Nonreactive Nonreactive [facility] Comment:HIV-1 p24 Ag and/or HIV-1/HIV-2 Ab not detected.A test result that is nonreactive does not exclude thepossibility of exposure to or infection with HIV-1 and/orHIV-2. Nonreactive results in this assay for individualswith prior exposure to HIV-1 and/or HIV-2 may be due toantigen and antibody levels that are below the limit ofdetection of this assay.The [employer] Sitters HIV Ag/Ab Combo assay result andsupplemental assay results should be interpreted inconjunction with the patient's clinical presentation,history and other laboratory results. If the results areinconsistent with clinical evidence, additional testing issuggested to confirm the result. Blood Venous blood specimen / Unknown 12/13/2023 12:18 PM EDT 12/13/2023 1:15 PM EDT us Adriana Sanches MD LAB BLOOD ORDERABLES Final Result [facility] [address] [place] [phone] * Pap Smear (07/02/2021) Pap Negative for intraephithelial lesion or malignancy Negative for intraephithelial lesion or malignancy, Other HPV Undetected Historical Provider HEALTH MAINTENANCE Final Result from Last 3 Months or Most Recently Relevant to Health Maintenance Insurance [facility] STANDARD [facility] ONE CARE < 65 FORMERLY [facility] ONE CARE < 65 Care Teams Electoral Officer Relationship Specialty Start Date End Date Adriana Palencia MD [address] [place] [phone] PCP - General Family Medicine 06/01/18
== END 2024-10-08 13:26 | disposition home or self-care (01) ==
LOC: HO.MRI 13:25
PROVIDERS: PCP Internal Medicine; Visit Provider Orthopaedic Surgery
DX: S46.811A Strain of other muscles, fascia and tendons at shoulder and upper arm level, right arm, initial encounter (principal)
CPT/HCPCS: 73218

== ENCOUNTER 2024-10-24 12:51 | Outpatient (AMB) | payer OTHER, SELFPAY ==
--- OUTSIDE RECORDS SUMMARY | 2024-10-24 12:58 | XMS_ITS | Data Portability ---
Author Organization [employer] [facility], [facility] [employer] [facility] Address [address] [place] [address] Care Team Providers Care Mobile Engineer Name Role Phone HIM [facility] OTHER [facility] OTHER Assessment Encounter Date Assessment Date Assessment LastModified by Organization Details LastModified Time 02/06/2024 02/06/2024 I provided real -time medical direction via phone for this encounter and was available for additional phone-based assistance as needed. I have reviewed and agree with the Assessment and Plan as documented by the Director Of Physician Practices. Patient given the opportunity to ask questions. Our service contacted for an assessment of: blood pressure check As per above, patient with h/o PEDRO PABLO and anxiety d/o. Wanted to checked and have her BP checked. Denies CP, SOB. Per tobacco scrap sifter on the scene, vitals are stable. Please see tobacco scrap sifter note for details guarding conversation and outcome [...] Not available Not available Not available 02/06/2024 [id number] RxNorm Melany Covarrubias MD [address] [facility], [place], [phone] [place] [address] - [employer] 4 09:58:03 6689 diphenhyd ramine medicatio n Not available Not available Not available 02/06/2024 3498 RxNorm Not Available [employer] - production 4 03:38:24 Medications Name Sig Start Date Stop Date Status Note LastModified by Organization Details LastModified Time blood pr monit omr [id number] USE TO CHECK BLOOD PRESSURE EVERY DAY [...] Body temperature Heart rate Respiratory rate Systolic And Diastolic Provider Name and Address Organization Details Last Updated DateTime 4 99 % 99 % 98.2 [degF] 72 /min 16 /min 146/87 mm[Hg] Not Available [employer] - production 4 [...] SNOMED-CT Code Diagnosis ICD10 Code Diagnosis Note [id number] Melany Covarrubias MD Main - [facility] [address] [place] [phone] 02/06/2024 09:19:38 02/06/2024 10:34:09 Generalized anxiety disorder 84128808 F41.1 Health Concerns Section Related Observation LastModified by Organization Detai ls LastModified Time None Recorded Concern Status LastModified by Organization Details LastModified Time None Recorded Advance Directives Directive None Recorded Payers Insurance Date Sequence Insurance Name Policy Number Policy Rosa Covered Member ID Rosa Member ID Guarantor Name 02/20/2024 1 [facility] - DOS ON OR AFTER 2022 - DUAL ELIGIBLE - [facility] OPTIONS AND ONE CARE (MEDICARE REPLACEMENT/ADV ANTAGE - HMO) Sudha Kinney [id number] Sudha Kinney Notes Date Note Type Note [...] accommodate a visit this evening, call via Military Communications Specialist [phone], RED flags discussed, she is agreeable to a visit tomorrow 02/05- Director Of Physician Practices Organization Information for [facility] [employer] Legal Name: [facility] [employer] Address: [address] [place] [address], [place]NE Worthy [address], Director Of Restaurants: Kem Verdugo MD [facility] No.: [id number] Director Of Physician Practices POC Test Results from [facility] Test (09:36:50) Test: - Rapid influenza antigen (09:36:52) Flu: - Rapid strep test (09:36:53) Strep: - ..................... ..................... ..................... ..................... ..................... ..................... ............... Director Of Physician Practices Note From [facility]: Pt reports hx [...] any thoughts to hurt herself or others. Pt s VS were WNLs, afebrile. Unremarkable oropharynx exam. Lungs CTA. Rapid covid, flu and strep negative. I recommended that she contact her psychiatrists office this morning for an KENDAL appointment, pt s son was present and stated he will make sure she calls. I explained that if any thoughts of harming herself or others present, to call 911 for an ED eval. ..................... ..................... ..................... ..................... ..................... ..................... ............... Disposition: Fulfilled Melany Covarrubias MD [address] [facility], [place], [phone], [employer] [facility] [employer] 02/06/2024 10:17:46 OBGyn Episode No OBEpisode recorded.
--- OUTSIDE RECORDS SUMMARY | 2024-10-24 12:58 | XMS_ITS | Clinical Summary ---
Author Organization [facility] Address [address] [place] [address] Phone Care Team Providers Care Airplane Cleaner Name Role Phone Maribel Garcia XANDER Primary Care Provider Allergies No known active allergies Medications No known medications Active Problems No known active problems Medical History Medical History Date Comments Asthma [...] 96 06/08/2024 12:44 PM EST Temperature 37.1 C (98.8 F) 06/08/2024 12:44 PM EST Respiratory Rate 16 06/08/2024 12:44 PM EST [...] 5 Years) and At-Risk Patients (6 to 49 Years) (2 of 2 - PCV) 03/19/2015 [...] 07/07/2020 Depression Screening 06/15/2024 06/16/2023 Influenza Vaccine (#1) 2024 02/06/2023 Hepatitis B Vaccines Completed 03/19/2014, [...] on patient's age to complete this topic Insurance [facility] MEDICARE Member Subscriber Plan / Payer (Ef fective 2024-Present) Name:Sudha Dean Relation to Subscriber:Self Name:Sudha Dean Payer ID:[id number] Group ID:Not on file Type:Not on file Address: [place] [address] [id number] Care Teams Airplane Cleaner Relationship Specialty Start Date End Date Maribel Garcia FNP PCP - General Internal Medicine 04/11/13
--- OUTSIDE RECORDS SUMMARY | 2024-10-24 12:58 | XMS_ITS | Clinical Summary ---
Author Organization [employer] Address [address] [place] [address] [address] [place] [address] Care Team Providers Care Occ Therapist Name Role Phone Adriana Palencia MD Primary [...] hours. Active ergocalciferol (Vitamin D-2) 1.25 MG (68775 UT) capsule take 1 capsule by oral [...] 6 (six) hours. 020 Active Lactobacillus-Inu kristen ([facility] Seldom Seen [facility]) capsule take 1 capsule 2 times [...] time per week. 2 mL 025 Active albuterol (Ventolin HFA) 108 (90 Base) MCG/ACT inhalerIndication s:Mild intermittent asthma, unspecified whether complicated INHALE 2 PUFFS BY MOUTH EVERY 4 HOURS 18 g 1 025 Active ibuprofen 800 MG tabletIndications :Fibromyalgia TAKE 1 TABLET BY MOUTH 3 TIMES DAILY. 90 tablet 025 Active ibuprofen 800 MG tabletIndications :Fibromyalgia Take 1 tablet (800 mg) by mouth 3 times daily. 90 tablet 025 2024 Discontinued Active Problems Problem Noted Date [...] life style modifications, diet and referral to health care specialist. Recommended to decrease soda and sugary [...] Encounters Date Type Department Care Team Description 10/09/2024 Refill [facility] [address] [place] [address] Adriana Palencia MD Fibromyalgia 10/08/2024 Orders Only [facility] External Provider, [facility] 10/04/2024 Telephone [facility] [address] [place] [address] Adriana Palencia MD Lab Orders (/) 09/12/2024 Refill [facility] [address] [place] [address] Adriana Palencia MD Acquired hypothyroidism 09/11/2024 Refill [facility] [address] [place] [address] Adriana Palencia MD Mild intermittent asthma, unspecified whether complicated 09/10/2024 Refill [facility] [address] [place] [address] Adriana Palencia MD Class 1 obesity due to excess calories with serious comorbidity and body mass index (BMI) of 32.0 to 32.9 in adult 09/10/2024 Orders Only [facility] [address] [place] [address] Adriana Palencia MD Fibromyalgia (Primary Dx); Class 1 obesity due to excess calories with serious comorbidity and body mass index (BMI) of 32.0 to 32.9 in adult 09/10/2024 Orders Only [facility] [address] [place] [address] Adriana Palencia MD Acquired hypothyroidism (Primary Dx) 09/07/2024 Refill [facility] [address] [place] [address] Adriana Palencia MD Polyarthralgia; Class 1 obesity due to excess calories with serious comorbidity and body mass index (BMI) of 32.0 to 32.9 in adult 08/15/2024 Refill [facility] [address] [place] [address] Tiffanie Robledo DO Muscle spasm; Pain 08/09/2024 Refill [facility] [address] [place] [address] Adriana Palencia MD Gastroesophageal reflux disease without esophagitis 08/06/2024 Refill [facility] [address] [place] [address] Adriana Palencia MD Class 1 obesity due to excess calories with serious comorbidity and body mass index (BMI) of 32.0 to 32.9 in adult 08/03/2024 Refill [facility] [address] [place] [address] Adriana Palencia MD Class 1 obesity due to excess calories with serious comorbidity and body mass index (BMI) of 32.0 to 32.9 in adult 08/02/2024 Refill [facility] [address] [place] [phone] Adriana Palencia MD Class 1 obesity due to excess calories with serious comorbidity and body mass index (BMI) of 32.0 to 32.9 in adult 08/02/2024 Refill [facility] [address] [place] [phone] Adriana Palencia MD Class 1 obesity due to excess calories with serious comorbidity and body mass index (BMI) of 32.0 to 32.9 in adult 07/30/2024 Telephone [facility] [address] [place] [phone] Majnu Jennings NP 07/29/2024 1:20 PM EDT Office Visit [facility] [address] [place] [phone] Manju Jennings NP Paresthesia (Primary Dx); Acute pain of right shoulder 07/29/2024 Refill [facility] [address] [place] [phone] Adriana Palencia MD Class 1 obesity due to excess calories with serious comorbidity and body mass index (BMI) of 32.0 to 32.9 in adult 07/29/2024 Travel 07/29/2024 Telephone [facility] [address] [place] [phone] Adriana Palencia MD Nurse Triage from Last 3 Months Immunizations Immunization Administration [...] 024 SDOH Screening 06/08/2024 06/08/2023 Influenza Vaccine (#1) 2024 02/06/2023 Mammogram 02/21/2025 02/22/2024, 1105/2022, 08/27/2020, Additional history exists Alcohol/Substance Use Screening 03/29/2025 03/29/2024 Tobacco Screening 04/16/2025 04/16/2024 Cervical Cancer Screening 07/02/2026 HPV/Cotest 07/02/2026 07/02/2021, 03/1 11/2021, 07/02/2021 Pap Smear 07/02/2026 07/02/2021 Lipid Panel 12/12/2028 12/13/2023, 030 12/2022, 01/12/2021 DTaP/Tdap/Td Vaccines (3 - Td [...] PM EDT Narrative 10/08/2024 2:25 PM EDT [place] [address] Magnetic Resonance Report Signed Patient: Sudha Dean MR#: [id number] : 1970 Acct:[id number] Age/Sex: 54 / F ADM Date: 10/08/24 Loc: HO.MRI Attending Dr: Kane Downey MD Ordering Physician: Kane Downey MD Date of Service: 10/08/24 Procedure(s): MR humerus RT wo con Accession Number(s): [id number] cc: Adriana Palencia MD; Kane Downey MD [...] MD 10/08/2024 02:22 PM EDT Dictated By: Parminedr Velasco MD Signed By: <Electronically signed by Parminder Velasco MD in OV> 10/08/24 1422 DD/ 1330 TD/TT: 10/08/24 1400 Preventive Maintenance Engineer: Procedure Note Donotuseinterpreter, Image - 10/08/[address] [address] Magnetic Resonance Report Signed Patient: Sudha Dean [facility]#: [id number] : 1970Acct:[id number] Age/Sex: 54 / FADM Date: 10/08/24 Loc: HO.MRI Attending Dr: Kane Downey MD Ordering Physician: Kane Downey MD Date of Service: 10/08/24 Procedure(s): MR humerus RT wo con Accession Number(s): [id number] cc: Adriana Palencia MD; Kane Downey MD [...] Parminder Velasco MD 10/08/2024 02:22 PM EDT RP Dictated By: Parminder Velasco MD Signed By: <Electronically signed by Parminder Vealsco MD in OV> 10/08/24 1422 DD/ 1330 TD/TT: 10/08/24 1400 Preventive Maintenance Engineer: [facility] External Provider IMG MRI PROCEDURES Final Result * XR Shoulder 2+ Views Right (07/29/2024 1:59 PM EDT) Anatomical Region Laterality Modality Upper Extremities, Shoulder Right Radi ographic Imaging 07/29/2024 1:59 PM EDT Narrative 07/29/2024 2:45 PM EDT [facility] [address] [place] [address] XRay Report Signed Patient: Sudha Dean MR#: [id number] : 1970 Acct:[id number] Age/Sex: 54 / F ADM Date: 07/29/24 Loc: HO.HHCX Attending Dr: Manju Jennings YOUTH LEADER Ordering Physician: Manju Jennings NP Date of Service: 07/29/24 Procedure(s): XR shoulder RT min 2V Accession Number(s): [id number] cc: Manju Jennings YOUTH LEADER EXAMINATION: XR SHOULDER 2 OR MORE VIEWS [...] Ru Ross MD 07/29/2024 02:42 PM EDT RP Dictated By: Ru Ross MD Signed By: <Electronically signed by Ru Ross MD in OV> 07/29/24 1442 DD/ 1359 TD/TT: 07/29/24 1400 Preventive Maintenance Engineer: Procedure Note Donotuseinterpreter, Image - 07/29/[address] [place] [address] XRay Report Signed Patient: Sudha Dean NMR#: [id number] : 1970Acct:[id number] Age/Sex: 54 / FADM Date: 07/29/24 Loc: HO.HHCX Attending Dr: Manju Jennings YOUTH LEADER Ordering Physician: Manju Jennings NP Date of Service: 07/29/24 Procedure(s): XR shoulder RT min 2V Accession Number(s): [id number] cc: Manju Jennings YOUTH LEADER EXAMINATION: XR SHOULDER 2 OR MORE VIEWS [...] 07/29/24 1442 DD/ 1359 TD/TT: 07/29/24 1400 Preventive Maintenance Engineer: Manju Jennings YOUTH LEADER IMG XR PROCEDURES Edited Result - Final * BI Mammogram Screening Tomosynthesis Bilateral (02/22/2024 8:40 AM EST) Anatomical Region Laterality Modality Breast Bilateral Mammography 02/22/2024 8:40 AM EST Narrative 03/01/2024 4:10 PM EST [address] [place] [address] Mammography Report Signed Patient: Sudha Dean N MR#: [id number] : 1970 Acct:[id number] Age/Sex: 54 / F ADM Date: 02/22/24 Loc: [facility] Attending Dr: Adriana Sanches MD Ordering Physician: Adriana Palencia MD Results: 1Negative Date of Service: 02/22/24 Follow Up: 1 Year From Orig inal Mammogram Procedure(s): MM tomosynthesis screening BI Accession Number(s): [id number] cc: Adriana Palencia MD EXAMINATION: MM SCREENING [...] by: Rachana Pablo DO 03/01/2024 04:07 PM [facility] Dictated By: Rachana Pablo DO Signed By: <Electronically signed by Rachana Pablo DO in OV> 03/01/24 1607 DD/ 0840 TD/TT: 02/22/24 0903 Preventive Maintenance Engineer: Procedure Note Donotuseinterpreter, Image - 03/01/2024 [facility] [address] [place] [address] [place] [address] Mammography Report Signed Patient: Sudha Dean [facility]#: [id number] : 1970Acct:[id number] Age/Sex: 54 / FADM Date: 02/22/24 Loc: HO.MAMMO Attending Dr: Adriana Sanches MD Ordering Physician: Adriana Palencia MDResults: 1Negative Date of Service: 02/22/24Follow Up: 1 Year From Orig inal Mammogram Procedure(s): MM tomosynthesis screening BI Accession Number(s): [id number] cc: Adriana Palencia MD EXAMINATION: MM SCREENING [...] by: Rachana Pablo DO 03/01/2024 04:07 PM [facility] Dictated By: Rachana Pablo DO Signed By: <Electronically signed by Rachana Pablo DO in OV> 03/01/24 1607 DD/ 0840 TD/TT: 02/22/24 0903 Preventive Maintenance Engineer: us Adriana Sanches MD IMG BI PROCEDURES Fin al Result * (ABNORMAL) Lipid Panel with Reflex to Direct LDL (12/13/2023 12:18 PM EDT) Triglycerides 52 <150 mg/dL [facility] Comment:Desirable Triglyceri de: less than 150 mg/dLBorderline High Triglyceride 150-199 mg/dLHigh Triglyceride: 200-499 mg/dLVery High Triglyceride: greater than or equal to 5OO mg/dL Cholesterol 187 <200 mg/dL [facility] Comment:Desirable Cholestero l: less than 200 mg/dLBorderline High Cholesterol: 200-239 mg/dLHigh Cholesterol: greater than 239 mg/dL LDL Cholesterol Calculated 109(H) <100 mg/dL [facility] Comment:Desirable LDL: less than 100 mg/dLNear Optimal/Above Optimal LDL: 110- 129 mg/dLBorderline High LDL: 130-159 mg/dLHigh LDL: 160-189 mg/dLVery High LDL: greater than or equal to 190 mg/dL HDL Cholesterol 68 >40 mg/dL [facility] Comment:Desirable HDL: great er than 40 mg/dL Note: This HDL assay may give artificially low results in patients with liver disease. Blood 12/13/2023 12:1 8 PM EDT 12/13/2023 1:25 PM EDT Adriana Sanches MD LAB BLOOD ORDERABLES Final Result Performing Organization Address [facility] de Phone Number [facility] [address] [place] [phone] * Hepatitis C Viral RNA, Quantitative, Real-Time PCR (12/13/2023 12:18 PM EDT) Hepatitis C Viral Load <15 NOT DETECTED NOT DETECTED IU/mL [facility] HCV Log PCR <1.18 NOT DETECTED NOT DETECTED Log IU/mL [facility] Comment:For additional infor gera, please refer tohttp://education.ColoWrap/faq/LUG15d9(This link is being provided for informational/educational purposes only.)THIS TEST WAS PERFORMED AT:[employer] [place] [phone] KENNEDY MD Blood 12/13/2023 12:1 8 PM EDT 12/13/2023 1:25 PM EDT Adriana Sanches MD LAB BLOOD ORDERABLES Final Result Performing Organization Address [facility] de Phone Number [facility] [address] [place] [address] [phone] * HIV-1/2 Antigen and Antibodies, Fourth Generation, with Reflexes (12/13/2023 12:18 PM EDT) HIV AB/AG Nonreactive Nonreactive [facility] Comment:HIV-1 p24 Ag and/or HIV-1/HIV-2 Ab not detected.A test result that is nonreactive does not exclude thepossibility of exposure to or infection with HIV-1 and/orHIV-2. Nonreactive results in this assay for individualswith prior exposure to HIV-1 and/or HIV-2 may be due toantigen and antibody levels that are below the limit ofdetection of this assay.The Adenyo HIV Ag/Ab Combo assay result andsupplemental assay results should be interpreted inconjunction with the patient's clinical presentation,history and other laboratory results. If the results areinconsistent with clinical evidence, additional testing issuggested to confirm the result. Blood Venous blood specimen / Unknown 12/13/2023 12:18 PM EDT 12/13/2023 1:15 PM EDT us Adriana Sanches MD LAB BLOOD ORDERABLES Final Result [facility] [address] [place] [phone] * Hm Pap Smear (07/02/2021) Pap Negative for intraephithelial lesion or malignancy Negative for intraephithelial lesion or malignancy, Other HPV Undetected us Historical Provider HEALTH MAINTENANCE Final Result from Last 3 Months or Most Recently Relevant to Health Maintenance Insurance [facility] [address] [address] [facility] STAND[facility] CCA ONE CARE < 65 CCA ONE CARE < 65 Care Teams Occ Therapist Relationship Specialty Start Date End Date Adriana Palencia MD [address] [place] [address] PCP - General Family Medicine 06/01/18
--- OUTSIDE RECORDS SUMMARY | 2024-10-24 12:58 | XMS_ITS | Clinical Summary ---
Author Organization [employer] [facility] Address [address] [place] [address] Care Team Providers Care [place] Naturalist Name Role Phone Unavailable Primary Care Provider [...] (1 of 2) 01/03/2020 Influenza Vaccine (#1) 2024 Pneumococcal Vaccine Aged Out No long er eligible based on patient's age to complete this topic RSV Ped < 20 months Aged Out No longe r eligible based on patient's age to complete this topic
[2024-10-24 13:06] VITALS: BP 90/64; PULSE 57; O2SAT 99; BMI 26.1
--- NOTE | 2024-10-24 13:06 | A.OFFVIS_ITS ---
Vital Signs 10/24/24 13:06 Height 5 ft 4 in Weight 152 lb 5.431 oz BMI 26.1 BP 90/64 Blood Pressure Location Lt brachial Position Sitting Pulse 57 Pulse Source Pulse Oximeter Pulse Oximetry (%) 99 Oxygen Delivery Method Room Air Intake Visit Reasons: hypothyroidism Intake Note: Patient present today for hypothyroidism office visit. Information Clerk Brokerage Required: Yes Information Clerk Brokerage Language: Floral Artist Services: Information Clerk Brokerage Present Information Clerk Brokerage Name: Deniz Information Interpreted: non-clinical & clinical Accompanied by: Grand Child Allergies diphenhydramine (From BENADRYL) Allergy (Intermediate, Verified 10/24/24 13:13) SEVERE LETHARGY oxycodone (From Percocet) Adverse Reaction (Verified 10/24/24 13:13) Anxiety Medication List - Last Reconciled 10/24/24 by Mariana Guillermo MD albuterol sulfate 90 mcg/actuation 2 puffs inhalation Q4-6H PRN albuterol sulfate 90 mcg/actuation 2 inhalations inhalation Q4-6H PRN baclofen 10 mg PO TID benzonatate 100 mg PO BID PRN qxtqmrjbty-vaudheqptxlza-tvfv 50-325-40 mg 1 tab PO Q6H PRN diclofenac sodium 1% topical levothyroxine 125 mcg PO DAILY lorazepam 0.5 mg PO BEDTIME PRN omeprazole 20 mg PO DAILY valacyclovir 500 mg PO DAILY HPI Comments Details: 54 yo female today for fup visit, for hypothyroidism HPI She was diagnosed 2005, secondary to Joe's disease She is Currently on levothyroxine generic 125 mcg . Daily She is now 100 % compliance. She has a Good method of administration. Family History: Positive hypothyroidism in mother. Thyroid US 06/25/16, small thyroid no nodules. Pharmacy: [facility] Last set of blood work from January 2024 showed normal TSH and free T4. She has not had recent TFTs. Today she denies any tiredness. Overall doing well. Physical exam General: sitting comfortably in no acute distress HEENT: normocephalic/atraumatic, symmetrical, no thyromegaly , no dorsocervical or supraclavicular fat pads Cardiac: normal heart sounds Pulm: normal breath sounds B/L, no added breath sounds Abd: not distended, no tenderness Extremities: no edema, no signs of myxedema Neuro: AAO x3, Speech: normal, no facial droop, moving all 4 extremities Laboratory Tests Laboratory Tests 01/22/24 15:39 TSH 0.68 Free T4 1.06 PFSH Medical History Panic attacks Asthma Depression Vitamin D deficiency Hypothyroidism Thyroid activity decreased Surgical History Hx of cervical polypectomy Hx of lithotripsy Hx of gastric bypass Family History Father Leukemia Cancer Mother Diabetes mellitus Hypertension Social History Household Members: Spouse Housing: Apartment Alcohol intake: former Comment: medicated with ketorolac and po tylenol Patient Tobacco Use Status: Never used Tobacco Current occupational status: unemployed Sexual orientation: Straight/Heterosexual Gender identity: Female Female Reproductive History Menstrual Age of Menarche: 12 Physical Exam Vital Signs: Last Vital Signs Pulse 57 10/24/24 13:06 BP 90/64 10/24/24 13:06 Pulse Ox 99 10/24/24 13:06 Oxygen Delivery Method Room Air 10/24/24 13:06 BMI result Body Mass Index 26.1 Assessment & Plan Assessment & Plan (1) Hypothyroidism: Code(s): E03.9 - Hypothyroidism, unspecified Category: Medical Qualifiers: 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 Currently on levothyroxine generic 125 mcg daily. No recent blood work in the chart. Overall she is doing well. I have asked her to do blood work today. She was not entirely sure about the dose of her levothyroxine, I have asked her to bring her medication bottles to next visit. 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
== END 2024-10-24 13:37 | disposition home or self-care (01) ==
LOC: HO.ENCR 12:51
PROVIDERS: PCP Internal Medicine; Visit Provider Student in an Organized Health Care Education/Training Program
DX: E03.8 Other specified hypothyroidism (principal); E06.3 Autoimmune thyroiditis
CPT/HCPCS: 99213

== ENCOUNTER → 2024-10-24 12:51 | Outpatient (BNVA) | payer OTHER, SELFPAY | PROVIDERS: PCP Internal Medicine; Visit Provider Student in an Organized Health Care Education/Training Program | DX: E03.8 Other specified hypothyroidism (principal); E06.3 Autoimmune thyroiditis | CPT/HCPCS: 99212 ==

== ENCOUNTER 2024-10-25 10:46 | Outpatient (REF) | payer OTHER, SELFPAY ==
--- OUTSIDE RECORDS SUMMARY | 2024-10-25 11:25 | XMS_ITS | Clinical Summary ---
Author Organization [employer] Address [address] [place] [address] [address] [place] [address] Care Team Providers Care Study Abroad Advisor Name Role Phone Adriana Palencia MD Primary [...] hours. Active ergocalciferol (Vitamin D-2) 1.25 MG (43201 UT) capsule take 1 capsule by oral [...] 6 (six) hours. 020 Active Lactobacillus-Inu kristen ([facility] Flattr [facility]) capsule take 1 capsule 2 times [...] life style modifications, diet and referral to veterinary milk specialist. Recommended to decrease soda and sugary [...] Type Department Care Team Description 10/09/2024 Refill [facility] MED[facility] [address] [place] [address] Adriana Palencia MD Fibromyalgia 10/08/2024 Orders Only [facility] External Provider, [facility] [place] 10/04/2024 Telephone [facility] MEDICINE [address] [place] [address] Adriana Palencia MD Lab Orders (/) 09/12/2024 Refill C MEDICINE [address] [place] [address] Adriana Palencia MD Acquired hypothyroidism 09/11/2024 Refill [facility] MEDICINE [address] [place] [address] Adriana Palencia MD Mild intermittent asthma, unspecified whether complicated 09/10/2024 Refill C MEDICINE [address] [place] [address] Adriana Palencia MD Class 1 obesity due to excess calories with serious comorbidity and body mass index (BMI) of 32.0 to 32.9 in adult 09/10/2024 Orders Only [facility] MEDICINE [address] [place] [address] Adriana Palencia MD Fibromyalgia (Primary Dx); Class 1 obesity due to excess calories with serious comorbidity and body mass index (BMI) of 32.0 to 32.9 in adult 09/10/2024 Orders Only [facility] MEDICINE [address] [place] [address] Adriana Palencia MD Acquired hypothyroidism (Primary Dx) 09/07/2024 Refill C MEDICINE [address] [place] [address] Adriana Palencia MD Polyarthralgia; Class 1 obesity due to excess calories with serious comorbidity and body mass index (BMI) of 32.0 to 32.9 in adult 08/15/2024 Refill [facility] MEDICINE [address] [place] [address] Tiffanie Robledo DO Muscle spasm; Pain 08/09/2024 Refill [facility] [address] [place] [address] Adriana Palencia MD Gastroesophageal reflux disease without esophagitis 08/06/2024 Refill [facility] [address] [place] [address] Adriana Palencia MD Class 1 obesity due to excess calories with serious comorbidity and body mass index (BMI) of 32.0 to 32.9 in adult 08/03/2024 Refill [facility] MED[facility]INE [address] [place] [address] Adriana Palencia MD Class 1 obesity due to excess calories with serious comorbidity and body mass index (BMI) of 32.0 to 32.9 in adult 08/02/2024 Refill [facility] MEDICINE [address] [place] [address] Adriana Palencia MD Class 1 obesity due to excess calories with serious comorbidity and body mass index (BMI) of 32.0 to 32.9 in adult 08/02/2024 Refill [facility] [address] [place] [address] Adriana Palencia MD Class 1 obesity due to excess calories with serious comorbidity and body mass index (BMI) of 32.0 to 32.9 in adult 07/30/2024 Telephone [facility] [address] [place] [phone] Manju Jennings NP 07/29/2024 1:20 PM EDT Office Visit [facility] [address] [place] [phone] Manju Jennings NP Paresthesia (Primary Dx); Acute pain of right shoulder 07/29/2024 Refill [facility] MED[facility] [address] [place] [address] Adriana Palencia MD Class 1 obesity due to excess calories with serious comorbidity and body mass index (BMI) of 32.0 to 32.9 in adult 07/29/2024 Travel 07/29/2024 Telephone [facility] MED[facility]INE [address] [place] [address] Adriana Palencia MD Nurse Triage from Last [...] PM EDT Narrative 10/08/2024 2:25 PM EDT [place] [address] Magnetic Resonance Report Signed Patient: Sudha Dean MR#: [id number] : 1970 Acct:[id number] Age/Sex: 54 / F ADM Date: 10/08/24 Loc: HO.MRI Attending Dr: Kane Downey MD Ordering Physician: Kane Downey MD Date of Service: 10/08/24 Procedure(s): MR humerus RT wo con Accession Number(s): [id number] cc: Adriana Palencia MD; Kane Downey MD [...] 10/08/24 1422 DD/ 1330 TD/TT: 10/08/24 1400 Pipe Organ Mechanic Apprentice: Procedure Note Donotuseinterpreter, Image - 10/08/[address] [address] Magnetic Resonance Report Signed Patient: Sudha Dean [facility]#: [id number] : 1970Acct:[id number] Age/Sex: 54 / FADM Date: 10/08/24 Loc: HO.MRI Attending Dr: Kane Downey MD Ordering Physician: Kane Downey MD Date of Service: 10/08/24 Procedure(s): MR humerus RT wo con Accession Number(s): [id number] cc: Adriana Palencia MD; Kane Downey MD [...] 10/08/24 1422 DD/ 1330 TD/TT: 10/08/24 1400 Pipe Organ Mechanic Apprentice: [facility] External Provider IMG MRI PROCEDURES Final Result * XR Shoulder 2+ Views Right (07/29/2024 1:59 PM EDT) Anatomical Region Laterality Modality Upper Extremities, Shoulder Right Radi ographic Imaging 07/29/2024 1:59 PM EDT Narrative 07/29/2024 2:45 PM EDT [facility] [address] [place] [address] XRay Report Signed Patient: Sudha Dean MR#: [id number] : 1970 Acct:[id number] Age/Sex: 54 / F ADM Date: 07/29/24 Loc: HO.HHCX Attending Dr: Manju Jennings MIXER LEVER OPERATOR Ordering Physician: Manju Jennings NP Date of Service: 07/29/24 Procedure(s): XR shoulder RT min 2V Accession Number(s): [id number] cc: Manju Jennings MIXER LEVER OPERATOR EXAMINATION: XR SHOULDER 2 OR MORE VIEWS [...] 07/29/24 1442 DD/ 1359 TD/TT: 07/29/24 1400 Pipe Organ Mechanic Apprentice: Procedure Note Donotuseinterpreter, Image - 07/29/[address] [place] [address] XRay Report Signed Patient: Sudha Dean NMR#: [id number] : 1970Acct:[id number] Age/Sex: 54 / FADM Date: 07/29/24 Loc: HO.HHCX Attending Dr: Manju Jennings MIXER LEVER OPERATOR Ordering Physician: Manju Jennings NP Date of Service: 07/29/24 Procedure(s): XR shoulder RT min 2V Accession Number(s): [id number] cc: Manju Jennings MIXER LEVER OPERATOR EXAMINATION: XR SHOULDER 2 OR MORE VIEWS [...] 07/29/24 1442 DD/ 1359 TD/TT: 07/29/24 1400 Pipe Organ Mechanic Apprentice: Manju Jennings MIXER LEVER OPERATOR IMG XR PROCEDURES Edited Result - Final * BI Mammogram Screening Tomosynthesis Bilateral (02/22/2024 8:40 AM EST) Anatomical Region Laterality Modality Breast Bilateral Mammography 02/22/2024 8:40 AM EST Narrative 03/01/2024 4:10 PM EST [address] [place] [address] Mammography Report Signed Patient: Sudha Dean N MR#: [id number] : 1970 Acct:[id number] Age/Sex: 54 / F ADM Date: 02/22/24 Loc: JASKARAN Attending Dr: Adriana Sanches MD Ordering Physician: Adriana Palencia MD Results: 1Negative Date of Service: 02/22/24 Follow Up: 1 Year From Orig inal Mammogram Procedure(s): MM tomosynthesis screening BI Accession Number(s): [id number] cc: Adriana Palencia MD EXAMINATION: MM SCREENING [...] by: Rachana Pablo DO 03/01/2024 04:07 PM [facility] Dictated By: Rachana Pablo DO Signed By: <Electronically signed by Rachana Pablo DO in OV> 03/01/24 1607 DD/ 0840 TD/TT: 02/22/24 0903 Pipe Organ Mechanic Apprentice: Procedure Note Donotuseinterpreter, Image - 03/01/2024 [facility] [address] [place] [address] [place] [address] Mammography Report Signed Patient: Sudha Dean [facility]#: [id number] : 1970Acct:[id number] Age/Sex: 54 / FADM Date: 02/22/24 Loc: HO.MAMMO Attending Dr: Adriana Sanches MD Ordering Physician: Adriana Palencia MDResults: 1Negative Date of Service: 02/22/24Follow Up: 1 Year From Orig inal Mammogram Procedure(s): MM tomosynthesis screening BI Accession Number(s): [id number] cc: Adriana Palencia MD EXAMINATION: MM SCREENING [...] by: Rachana Pablo DO 03/01/2024 04:07 PM [facility] Dictated By: Rachana Pablo DO Signed By: <Electronically signed by Rachana Pablo DO in OV> 03/01/24 1607 DD/ 0840 TD/TT: 02/22/24 0903 Pipe Organ Mechanic Apprentice: us Adriana Sanches MD IMG BI PROCEDURES Fin al Result * (ABNORMAL) Lipid Panel with Reflex to Direct LDL (12/13/2023 12:18 PM EDT) Triglycerides 52 <150 mg/dL [facility] Comment:Desirable Triglyceri de: less than 150 mg/dLBorderline High Triglyceride 150-199 mg/dLHigh Triglyceride: 200-499 mg/dLVery High Triglyceride: greater than or equal to 5OO mg/dL Cholesterol 187 <200 mg/dL [facility] Comment:Desirable Cholestero l: less than 200 mg/dLBorderline High Cholesterol: 200-239 mg/dLHigh Cholesterol: greater than 239 mg/dL LDL Cholesterol Calculated 109(H) <100 mg/dL [facility] Comment:Desirable LDL: less than 100 mg/dLNear Optimal/Above Optimal LDL: 110- 129 mg/dLBorderline High LDL: 130-159 mg/dLHigh LDL: 160-189 mg/dLVery High LDL: greater than or equal to 190 mg/dL HDL Cholesterol 68 >40 mg/dL [facility] Comment:Desirable HDL: great er than 40 mg/dL Note: This HDL assay may give artificially low results in patients with liver disease. Blood 12/13/2023 12:1 8 PM EDT 12/13/2023 1:25 PM EDT Adriana Sanches MD LAB BLOOD ORDERABLES Final Result Performing Organization Address [facility] de Phone Number [facility] [address] [place] [phone] * Hepatitis C Viral RNA, Quantitative, Real-Time PCR (12/13/2023 12:18 PM EDT) Hepatitis C Viral Load <15 NOT DETECTED NOT DETECTED IU/mL [facility] HCV Log PCR <1.18 NOT DETECTED NOT DETECTED Log IU/mL [facility] Comment:For additional infor gera, please refer tohttp://education.[employer]/faq/QWF78l0(This link is being provided for informational/educational purposes only.)THIS TEST WAS PERFORMED AT:[employer] [place] [phone] KENNEDY MD Blood 12/13/2023 12:1 8 PM EDT 12/13/2023 1:25 PM EDT Adriana Sanches MD LAB BLOOD ORDERABLES Final Result Performing Organization Address [facility] de Phone Number [facility] [address] [place] [address] [phone] * HIV-1/2 Antigen and Antibodies, Fourth Generation, with Reflexes (12/13/2023 12:18 PM EDT) HIV AB/AG Nonreactive Nonreactive [facility] Comment:HIV-1 p24 Ag and/or HIV-1/HIV-2 Ab not detected.A test result that is nonreactive does not exclude thepossibility of exposure to or infection with HIV-1 and/orHIV-2. Nonreactive results in this assay for individualswith prior exposure to HIV-1 and/or HIV-2 may be due toantigen and antibody levels that are below the limit ofdetection of this assay.The [employer] HIV Ag/Ab Combo assay result andsupplemental assay results should be interpreted inconjunction with the patient's clinical presentation,history and other laboratory results. If the results areinconsistent with clinical evidence, additional testing issuggested to confirm the result. Blood Venous blood specimen / Unknown 12/13/2023 12:18 PM EDT 12/13/2023 1:15 PM EDT us Adriana Sanches MD LAB BLOOD ORDERABLES Final Result [facility] [address] [place] [phone] * Hm Pap Smear (07/02/2021) Pap Negative for intraephithelial lesion or malignancy Negative for intraephithelial lesion or malignancy, Other HPV Undetected us Historical Provider HEALTH MAINTENANCE Final Result from Last 3 Months or Most Recently Relevant to Health Maintenance Insurance [facility] Main [address] [address] [facility] ST[facility] CCA ONE CARE < 65 CCA ONE CARE < 65 Care Teams Study Abroad Advisor Relationship Specialty Start Date End Date Adriana Palencia MD [address] [place] [address] PCP - General Family Medicine 06/01/18
--- OUTSIDE RECORDS SUMMARY | 2024-10-25 11:25 | XMS_ITS | Clinical Summary ---
Author Organization [facility] Address [address] [place] [address] Phone Care Team Providers Care Homicide Squad Captain Name Role Phone Maribel Garcia XANDER Primary Care Provider [phone] Allergies No known active allergies Medications No [...] patient's age to complete this topic Insurance [facility] MEDICARE Member Subscriber Plan / Payer (Ef fective 2024-Present) Name:Sudha Dean Relation to Subscriber:Self Name:Sudha Dean Payer ID:[id number] Group ID:Not on file Type:Not on file Address: [address] [place] [id number] Care Teams Homicide Squad Captain Relationship Specialty Start Date End Date Maribel Garcia FNP PCP - General Internal Medicine 04/11/13
--- OUTSIDE RECORDS SUMMARY | 2024-10-25 11:25 | XMS_ITS | Clinical Summary ---
Author Organization [employer] [facility] Address [address] [place] [address] Care Team Providers Care Data Collection Associate Name Role Phone Unavailable Primary Care Provider [...]
[2024-10-25 12:06] LABS: Free T4 (Free Thyroxine) 1.17 ng/dL (0.71-1.85); Thyroid Stimulating Hormone 0.06 uIU/mL (0.32-4.0)
== END 2024-10-25 10:47 | disposition home or self-care (01) ==
LOC: HO.LAB 10:46
PROVIDERS: PCP Internal Medicine; Visit Provider Student in an Organized Health Care Education/Training Program
DX: E06.3 Autoimmune thyroiditis (principal); E03.9 Hypothyroidism, unspecified
CPT/HCPCS: 36415; 84439; 84443

== ENCOUNTER 2024-10-26 19:27 | Outpatient (REF) | payer OTHER, SELFPAY ==
--- NOTE | ~2024-10-26 | MR_ITS ---
CLINICAL HISTORY: M23.91 - Unspecified internal derangement of right knee MRI right shoulder without contrast Comparison: None provided Findings: Increased signal along undersurface of distal supraspinatus tendon. Similar undersurface signal noted infraspinatus tendon. Question tendinopathy versus partial thickness undersurface tear. Edema also noted along superior aspect of these tendons. No complete transverse signal abnormality is identified. Remaining rotator cuff tendons are intact. Biceps tendon normally positioned without tear. Glenoid labrum heterogeneous without dodie tear. No significant focal bony signal abnormality noted. Superolateral humeral head subchondral cysts noted. No joint effusion is identified. Degenerative change acromioclavicular joint. Impression: Question tendinopathy versus partial-thickness tears supraspinatus and infraspinatus tendons No other significant abnormality This document has been electronically signed by: Robbie Sahu MD on 10/29/2024 20:24:04
--- OUTSIDE RECORDS SUMMARY | 2024-10-26 19:32 | XMS_ITS | Clinical Summary ---
Author Organization [employer] [facility] Address [address] [place] [address] Care Team Providers Care Construction Carpenters Helper Name Role Phone Unavailable Primary Care Provider [...]
--- OUTSIDE RECORDS SUMMARY | 2024-10-26 19:32 | XMS_ITS | Data Portability ---
Author Organization [employer] [facility], [facility] Address [address] [place] [address] Care Team Providers Care Cotton Agent Name Role Phone HIM CCA OTHER [facility] OTHER [phone] Assessment Encounter Date Assessment Date Assessment LastModified by Organization Details LastModified Time 02/06/2024 02/06/2024 I provided real -time medical direction via phone for this encounter and was available for additional phone-based assistance as needed. I have reviewed and agree with the Assessment and Plan as documented by the Senior Maintenance Machinist. Patient given the opportunity to ask questions. Our service contacted for an assessment of: blood pressure check As per above, patient with h/o PEDRO PABLO and anxiety d/o. Wanted to checked and have her BP checked. Denies CP, SOB. Per radar engineering teacher on the scene, vitals are stable. Please see radar engineering teacher note for details guarding conversation and outcome [...] Not available Not available Not available 02/06/2024 12009 RxNorm Melany Covarrubias MD [address] [facility], [place], [phone] [place] [address] - [employer] 4 09:58:03 6689 diphenhyd ramine medicatio n Not available Not available Not available 02/06/2024 3498 RxNorm Not Available [employer] - production 4 03:38:24 Medications Name Sig Start Date Stop Date Status Note LastModified by Organization Details LastModified Time blood pr monit omr [id number] USE TO CHECK BLOOD PRESSURE EVERY DAY [...] SNOMED-CT Code Diagnosis ICD10 Code Diagnosis Note 58566 Melany Covarrubias MD Main - [facility] [address] [place] [phone] 02/06/2024 09:19:38 02/06/2024 10:34:09 Generalized anxiety disorder 45539021 F41.1 Health Concerns Section Related Observation LastModified by Organization Detai ls LastModified Time None Recorded Concern Status LastModified by Organization Details LastModified Time None Recorded Advance Directives Directive None Recorded Payers Insurance Date Sequence Insurance Name Policy Number Policy Rosa Covered Member ID Rosa Member ID Guarantor Name 02/20/2024 1 [facility] - DOS ON OR AFTER 2022 - DUAL ELIGIBLE - CARE HOME OPTIONS AND ONE CARE (MEDICARE REPLACEMENT/ADV ANTAGE - HMO) Sudha Kinney [id number] Sudha Kinney Notes Date Note Type Note [...] accommodate a visit this evening, call via Senior Quality Assurance Engineer [phone], RED flags discussed, she is agreeable to a visit tomorrow 02/05- Senior Maintenance Machinist Organization Information for [facility] [employer] Legal Name: [facility] Address: [address] [place] [address], [place] [address], Economic Development Director: Kem Verdugo MD [facility] No.: [id number] Senior Maintenance Machinist POC Test Results from [facility] Test (09:36:50) Test: - Rapid influenza antigen (09:36:52) Flu: - Rapid strep test (09:36:53) Strep: - ..................... ..................... ..................... ..................... ..................... ..................... ............... Senior Maintenance Machinist Note From [facility]: Pt reports hx [...] ............... Disposition: Fulfilled Melany Covarrubias MD [address] [facility], [place], [address], [employer] 02/06/2024 10:17:46 OBGyn Episode No OBEpisode recorded.
--- OUTSIDE RECORDS SUMMARY | 2024-10-26 19:32 | XMS_ITS | Clinical Summary ---
Author Organization [facility] Address [address] [place] [address] Phone Care Team Providers Care Sand Technician Name Role Phone Maribel Garcia XANDER Primary Care Provider [phone] Allergies No known active allergies Medications No [...] patient's age to complete this topic Insurance [facility] MEDICARE Member Subscriber Plan / Payer (Ef fective 2024-Present) Name:Sudha Dean Relation to Subscriber:Self Name:Sudha Dean Payer ID:[id number] Group ID:Not on file Type:Not on file Address: [address] [place] [id number] Care Teams Sand Technician Relationship Specialty Start Date End Date Maribel Garcia FNP PCP - General Internal Medicine 04/11/13
== END 2024-10-26 19:28 | disposition home or self-care (01) ==
LOC: HO.MRI 19:27
PROVIDERS: PCP Internal Medicine; Visit Provider Orthopaedic Surgery
DX: S46.811A Strain of other muscles, fascia and tendons at shoulder and upper arm level, right arm, initial encounter (principal)
CPT/HCPCS: 73221

== ENCOUNTER → 2024-10-26 19:34 | Outpatient (BNV) | payer OTHER, SELFPAY | PROVIDERS: PCP Internal Medicine; Visit Provider Radiology Diagnostic Radiology | DX: M23.91 Unspecified internal derangement of right knee (principal) | CPT/HCPCS: 73221 ==

== ENCOUNTER 2024-11-28 14:46 | Outpatient (AMB) | payer OTHER, SELFPAY ==
--- NOTE | 2024-11-28 14:47 | MHC.OFFVIS ---
Intake Visit Reasons: TH-MRI review of RT shoulder Intake Note: Sudha is a 54 year old ight hand dominant female who presents today for a MRI review of her Right Shoulder. Pain is felt over the distal aspect of the deltoid and slightly anterior into the biceps, she feels fullness and pain. Impression: Question tendinopathy versus partial-thickness tears supraspinatus and infraspinatus tendons No other significant abnormality Allergies diphenhydramine (From BENADRYL) Allergy (Intermediate, Verified 10/24/24 13:13) SEVERE LETHARGY oxycodone (From Percocet) Adverse Reaction (Verified 10/24/24 13:13) Anxiety HPI HPI TH-MRI review of RT shoulder: Details: Sudha is a 54 year old ight hand dominant female who presents today for a MRI review of her Right Shoulder. Pain is felt over the distal aspect of the deltoid and slightly anterior into the biceps, she feels fullness and pain but improved from prior. PFSH Medical History Panic attacks Asthma Depression Vitamin D deficiency Hypothyroidism Thyroid activity decreased Surgical History Hx of cervical polypectomy Hx of lithotripsy Hx of gastric bypass Family History Father Leukemia Cancer Mother Diabetes mellitus Hypertension Social History Household Members: Spouse Housing: Apartment Alcohol intake: former Comment: medicated with ketorolac and po tylenol Patient Tobacco Use Status: Never used Tobacco Current occupational status: unemployed Sexual orientation: Straight/Heterosexual Gender identity: Female Female Reproductive History Menstrual Age of Menarche: 12 Telehealth Telehealth Telehealth [facility] Location of provider rendering services: practice address Location of patient: address on file Patient Identification confirmed using: Name, : Yes Telehealth method: video Patient verbally consented to treatment: Yes Patient verbally consented to billing insurance company: Yes Patient informed of any privacy concerns related to visit: Yes Minutes spent on Phone/Video with Pt.: 10 Results Reviewed Results Reviewed: I personally reviewed the MR images. Impression: Question tendinopathy versus partial-thickness tears supraspinatus and infraspinatus tendons No other significant abnormality Assessment & Plan Assessment & Plan (1) Strain of muscle(s) and tendon(s) of the rotator cuff of right shoulder, sequela: Code(s): S46.011S - Strain of muscle(s) and tendon(s) of the rotator cuff of right shoulder, sequela Category: Medical Plan: 54-year-old female with right rotator cuff strain. Improving compared to prior. MRI not concerning. PT and will see me in my offic for injection in the coming weeks Orders: Orders PT Evaluation and Treatment Today S46.011S - Strain of muscle(s) and tendon(s) of the rotator cuff of right shoulder, sequela Coding Level of Care Code Tele Est Pt Level 3 (39773) Diagnoses Strain of muscle(s) and tendon(s) of the rotator cuff of right shoulder, sequela S46.011S
--- OUTSIDE RECORDS SUMMARY | 2024-11-28 15:24 | XMS_ITS | Clinical Summary ---
Author Organization [facility] Address [address] [place] [address] Phone Care Team Providers Care Rattlesnake Farmer Name Role Phone Maribel Garcia XANDER Primary Care Provider [phone] Allergies No known active allergies Medications No [...] - season) 2023 08/04/2020, 07/07/2020 Depression Screening 04/17/2024 Influenza Vaccine (#1) 2024 02/06/2023 Hepatitis B [...] patient's age to complete this topic [place] [address] [place] [address] MEDICARE Member Subscriber Plan / Payer (Ef fective 2024-Present) Name:Sudha Dean Relation to Subscriber:Self Name:Sudha Daen Payer ID:[id number] Group ID:Not on file Type:Not on file Address: [address] [place] [id number] Care Teams Rattlesnake Farmer Relationship Specialty Start Date End Date Maribel Garcia FNP PCP - General Internal Medicine 04/11/13
--- OUTSIDE RECORDS SUMMARY | 2024-11-28 15:24 | XMS_ITS | Clinical Summary ---
Author Organization [email or web address] [facility] Address [address] [place] [address] Care Team Providers Care Semiconductor Wafers Etcher Stripper Name Role Phone Unavailable Primary Care Provider [...]
--- OUTSIDE RECORDS SUMMARY | 2024-11-28 15:24 | XMS_ITS | Encounter Summary ---
Author Organization [facility] Address [address] [place] [address] Phone Care Team Providers Care Film Printer Name Role Phone Unknown, Unknown Primary Care Provider Nikia pina Encounter Details Date Type Department Care Team (Latest Contact Info) Description 04/21/2017 Ancillary Orders [facility] [address] [place] [address] [place] [address] Hector Zamora DO [address] [place] [address] Palpitations; Chest pain, unspecified type; Syncope, unspecified syncope type Social History Tobacco Use Types Packs/Day Years Used Date Smoking Tobacco: Never Assessed Comments Unknown Sex and Gender Information Value Date Recorded Sex Assigned at Not on file Legal Sex Female 11:16 AM EST Gender Identity Not on file Sexual Orientation Not on file documented as of this encounter Plan of Treatment Not on file documented as of this encounter Results * Holter Monitor 24 Hours (04/21/2017 11:30 AM EST) Anatomical Region Laterality Modality Heart Other Narrative 04/21/2017 12:11 PM EST Holter monitor report Indication palpitations chest pain syncope Findings: The underlying rhythm is normal sinus rhythm with average heart rate of 68 bpm, minimal heart rate 42 bpm and maximum heart rate 118 bpm. There is no ventricular ectopy. There are rare isolated PACs Conclusion: Normal Holter monitor. Hector Zamora DO [facility] ORDERABLE S Final Result documented in this encounter Visit Diagnoses Diagnosis Palpitations Chest pain, unspecified type Syncope, unspecified syncope type Palpitations Chest pain, unspecified type Syncope, unspecified syncope type documented in this encounter Care Teams Film Printer Relationship Specialty Start Date End Date Unknown, Unknown, MD PCP - General 04/21/17 documented as of this encounter Additional Source Comments The information contained in this document represents components of the legal health record. It is not the complete legal health record.[facility]
== END 2024-11-28 15:53 | disposition home or self-care (01) ==
LOC: HO.HOS 14:46
PROVIDERS: PCP Internal Medicine; Visit Provider Orthopaedic Surgery
DX: S46.011S Strain of muscle(s) and tendon(s) of the rotator cuff of right shoulder, sequela (principal)
CPT/HCPCS: 99213

== ENCOUNTER 2024-12-09 13:15 | Outpatient (AMB) | payer OTHER, SELFPAY ==
--- NOTE | 2024-12-09 13:29 | MHC.OFFVIS ---
Vital Signs 12/09/24 13:33 Height 5 ft 4 in Weight 152 lb BMI 26.1 Intake Visit Reasons: Inj - Right Shoulder Injection Intake Note: Sudha is a 54 year old right hand dominant female who presents today for an injection in the right shoulder. No Hx of injection in the right shoulder, only the left Allergies diphenhydramine (From BENADRYL) Allergy (Intermediate, Verified 10/24/24 13:13) SEVERE LETHARGY oxycodone (From Percocet) Adverse Reaction (Verified 10/24/24 13:13) Anxiety HPI HPI Inj - Right Shoulder Injection: Details: Sudha is a 54 year old right hand dominant female who presents today for an injection in the right shoulder. No Hx of injection in the right shoulder, only the left PFSH Medical History Panic attacks Asthma Depression Vitamin D deficiency Hypothyroidism Thyroid activity decreased Surgical History Hx of cervical polypectomy Hx of lithotripsy Hx of gastric bypass Family History Father Leukemia Cancer Mother Diabetes mellitus Hypertension Social History Household Members: Spouse Housing: Apartment Alcohol intake: former Comment: medicated with ketorolac and po tylenol Patient Tobacco Use Status: Never used Tobacco Current occupational status: unemployed Sexual orientation: Straight/Heterosexual Gender identity: Female Female Reproductive History Menstrual Age of Menarche: 12 Physical Exam Vital Signs: BMI result Body Mass Index 26.1 Extrem Other: Positive Santiago and Neer. Negative empty can. Full range of motion right shoulder. Office Procedures Joint Inj/Aspir; Non-Pain Clin Joint Injection/Drain Details: Injected 1 mL of Decadron and 3 mL 1% lidocaine and 3 mL of 0.25% Marcaine. Site was prepped using aseptic technique. Patient tolerated the procedure well. Shoulders, Hips, Knees, Shoulder Injection Large joint 94217: Right Shoulder Coding Procedure code (CPT) selection complete Assessment & Plan Assessment & Plan (1) Strain of muscle(s) and tendon(s) of the rotator cuff of right shoulder, sequela: Code(s): S46.011S - Strain of muscle(s) and tendon(s) of the rotator cuff of right shoulder, sequela Category: Medical Plan: Low-grade tear versus chronic tendinopathy right shoulder. PT pending. I gave her a list of exercises. I injected her right shoulder. Follow up PRN. Coding Level of Care Code Est Pt Level 3 (17187) Diagnoses Strain of muscle(s) and tendon(s) of the rotator cuff of right shoulder, sequela S46.011S CPT Codes Shoulders, Hips, Knees, - Shoulder Injection Large joint : Right Shoulder ([id number])
[2024-12-09 13:33] VITALS: BMI 26.1
--- OUTSIDE RECORDS SUMMARY | 2024-12-09 14:33 | XMS_ITS | Encounter Summary ---
Author Organization [employer] Address [address] [place] [address] [address] [place] [address] Care Team Providers Care Screen Cleaner Name Role Phone Adriana Palencia MD Primary Care Provide r Reason for Visit * Reason Comments Med Refill Encounter Details Date Type Department Care Team (Late Contact Info) Description 11/24/2022 Refill [facility] [address] [place] [id number] Lilia Mcgregor, XANDER Migraine without aura and without status migrainosus, [...] Department Care Team (Late Contact Info) Description 12/09/2024 3:30 PM EDT Office Visit [facility] [address] [place] [address] Manju Jennings NP [address] [place] [address] documented as of this encounter Visit Diagnoses Diagnosis Migraine without aura and without status migrainosus, not intractable documented in this encounter Additional Health Concerns Assessment Noted Time PHQ-9 Depression Total Score: 14 023 3:05 PM EDT documented as of this encounter Care Teams Screen Cleaner Relationship Specialty Start Date End Date Adriana Palencia MD [address] [place] [address] PCP - General Family Medicine 06/01/18 documented as of this encounter
--- OUTSIDE RECORDS SUMMARY | 2024-12-09 14:33 | XMS_ITS | Encounter Summary ---
Author Organization [email or web address] Address [address] [place] [address] Care Team Providers Care Whizzer Operator Name Role Phone Adriana Palencia MD Primary Care Provide r Reason for Visit * Reason Comments Med Refill Encounter Details Date Type Department Care Team ([facility] st Contact Info) Description 03/10/2024 Refill [facility] [address] [place] [address] Adriana Palencia MD [address] [place] [address] Vitamin B12 deficiency Social History Tobacco Use [...] is your housing situation today? I have jasvirole amado 01/30/[address] you [...] Care Team (Late st Contact Info) Description 12/09/2024 3:30 PM EDT Office Visit [facility] [address] [place] [address] Manju Jennings NP [address] [place] [address] documented as of this encounter Visit Diagnoses Diagnosis Vitamin B12 deficiency Other B-complex deficiencies documented in this encounter Additional Health Concerns Assessment Noted Time PHQ-9 Depression Total Score: 15 024 9:44 AM EST documented as of this encounter Care Teams Whizzer Operator Relationship Specialty Start Date End Date Adriana Palencia MD [address] [place] [phone] PCP - General Family Medicine 06/01/18 documented as of this encounter
--- OUTSIDE RECORDS SUMMARY | 2024-12-09 14:33 | XMS_ITS | Encounter Summary ---
Author Organization [employer] Address [address] [place] [address] 7 [place] [address] Care Team Providers Care Wheelabrator Operator Name Role Phone Adriana Palencia MD Primary Care Provide r Encounter Details Date Type Department Care Team ([facility] Contact Info) Description 03/17/2022 Abstract [facility] [address] [place] [address] [phone] Provider, MD Gurvinder Social History Tobacco Use Types Packs/Day Years [...] Description 12/09/2024 3:30 PM EDT Office Visit [facility] [address] [place], [place] [phone] Manju Jennings NP [address] [place], [place] [phone] documented as of this encounter Visit Diagnoses Not on filedocumented in this encounter Care Teams Wheelabrator Operator Relationship Specialty Start Date End Date Adriana Palencia MD [address] [place] [phone] PCP - General Family Medicine 06/01/18 documented as of this encounter
--- OUTSIDE RECORDS SUMMARY | 2024-12-09 14:33 | XMS_ITS | Encounter Summary ---
Author Organization [employer] Address [address] [place] [address] 7 [place] [address] Care Team Providers Care Blade Changer Name Role Phone Adriana Palencia MD Primary Care Provide r Reason for Visit * Reason Comments Med Refill Encounter Details Date Type Department Care Team (Late Contact Info) Description 12/02/2022 Refill [facility] [address] [place] [phone] Bree Ag MD [address] [place] [phone] Generalized anxiety disorder Social History Tobacco Use [...] Description 12/09/2024 3:30 PM EDT Office Visit [facility] [address] [place] [phone] Manju Jennings NP [address] [place] [address] documented as of this encounter Visit Diagnoses Diagnosis Generalized anxiety disorder documented in this encounter Additional Health Concerns Assessment Noted Time PHQ-9 Depression Total Score: 14 023 3:05 PM EDT documented as of this encounter Care Teams Blade Changer Relationship Specialty Start Date End Date Adriana Palencia MD [address] [place] [address] PCP - General Family Medicine 06/01/18 documented as of this encounter
--- OUTSIDE RECORDS SUMMARY | 2024-12-09 14:33 | XMS_ITS | Encounter Summary ---
Author Organization [employer] Address [address] [place] [address] Care Team Providers Care Environmental Systems Coordinator Name Role Phone Adriana Palencia MD Primary Care Provide r Encounter Details Date Type Department Care Team (Late Contact Info) Description 05/17/2022 Telephone [facility] [address] [place] [address] Rosemary Espana RN [address] [place] [address] Social History Tobacco Use Types Packs/Day Years [...] EST T triaged today, seen ER at [facility] on 05/14 for anxiety issues, chest pain, and ear buzzing.. please obtain ER records. documented in this encounter Plan of Treatment Upcoming Encounters Date Type Department Care Team ([facility] Contact Info) Description 12/09/2024 3:30 PM EDT Office Visit [facility] [address] [place] [address] Manju Jennings NP [address] [place], [place] [phone] documented as of this encounter Visit Diagnoses Not on filedocumented in this encounter Care Teams Environmental Systems Coordinator Relationship Specialty Start Date End Date Adriana Palencia MD [address] [place] [address] PCP - General Family Medicine 06/01/18 documented as of this encounter
--- OUTSIDE RECORDS SUMMARY | 2024-12-09 14:33 | XMS_ITS | Clinical Summary ---
Author Organization [employer] Address [address] [place] [address] 7[address] [place] [address] Care Team Providers Care Bottle House Pumper Name Role Phone Adriana Palencia MD Primary [...] hours. Active ergocalciferol (Vitamin D-2) 1.25 MG (68610 UT) capsule take 1 capsule by oral [...] topically to skin as needed for hemorrhoids 01/03/2 022 Active meloxicam (Mobic) 15 MG tablet Take 1 tablet by mouth 1 (one) time each day. 022 Active lidocaine (Lidoderm) 5 % patch Place 1 patch on the skin 1 (one) time each day. 022 Active ipratropium (Atrovent) 0.02 % nebulizer solution Inhale 2.5 mL every 6 (six) hours. Active Lactobacillus-Inu kristen ([facility]) capsule take 1 capsule 2 [...] per day. 10 tablet 025 2025 Active omeprazole (PriLOSEC) [address] capsuleIndication s:Gastroesophagea l reflux disease without esophagitis TOME 1 CAPSULA POR VIA ORAL TODOS LOS DIAZ BEFORE A MEAL 90 capsule 1 Active levothyroxine (Synthroid) 125 MCG tabletIndications :Acquired [...] per week. 2 mL 025 Active albuterol 108 (90 Base) MCG/ACT inhalerIndication s:Mild intermittent asthma, unspecified whether complicated INHALE 2 PUFFS BY MOUTH EVERY 4 HOURS 18 g 1 025 Active ibuprofen 800 MG tabletIndications :Fibromyalgia TAKE 1 TABLET BY MOUTH 3 TIMES DAILY. 90 tablet 025 Active baclofen (Lioresal) 10 MG tabletIndications :Muscle spasm,Pain TAKE 1 TABLET BY MOUTH THREE TIMES A DAY NEEDED 270 tablet 025 Active valACYclovir (Valtrex) 500 MG tablet TAKE 1 TABLET BY MOUTH EVERY DAY 90 tablet 1 025 Active valACYclovir (Valtrex) 500 MG tablet TAKE 1 TABLET BY MOUTH EVERY DAY 90 tablet 1 025 2024 Discontinued baclofen (Lioresal) 10 MG tabletIndications :Muscle spasm,Pain TOME 1 TABLETA POR VIA ORAL DENNYS VECES AL KENAN CUANDO SEA NECESARIO 270 tablet 025 2024 Discontinued ibuprofen 800 MG tabletIndications :Fibromyalgia TAKE 1 TABLET BY MOUTH 3 TIMES DAILY. 90 tablet 025 2024 Discontinued Active Problems [...] life style modifications, diet and referral to hair specialist. Recommended to decrease soda and sugary [...] Encounters Date Type Department Care Team Description 12/07/2024 Refill [facility] [address] [place] [address] Adriana Palencia MD 12/06/2024 Telephone [facility] [address] [place] [address] Bree Ag MD No Show 12/05/2024 Telephone [facility] [address] [place] [phone] Adriana Palencia MD Chart Prep 12/03/2024 Travel 12/02/2024 Telephone [facility] [address] [place] [phone] Adriana Palencia MD Nurse Triage 11/25/2024 11:00 AM EDT Office Visit [facility] [address] [place] [phone] Name, MD Harsha Gastroesophageal reflux disease, unspecified whether esophagitis present (Primary Dx) 11/15/2024 Telephone [facility] [address] [place] [address] Adriana Palencia MD Nurse Triage 11/14/2024 Refill [facility] [address] [place] [phone] Adriana Palencia MD Muscle spasm; Pain 11/12/2024 Refill [facility] [address] [place] [address] Adriana Palencia MD Fibromyalgia 11/07/2024 Refill [facility] [address] [place] [address] Adriana Palencia MD Mild intermittent asthma, unspecified whether complicated 10/26/2024 Orders Only [facility] External Provider, [facility] 10/25/2024 Orders Only GENERIC EXTERNAL DATA DEPARTMENT Provider, Generic External Data 10/09/2024 Refill [facility] [address] [place] [address] Adriana Palencia MD Fibromyalgia 10/08/2024 Orders Only [facility] External Provider, [facility] 10/04/2024 Telephone [facility] [address] [place] [address] Adriana Palencia MD Lab Orders (/) 09/12/2024 Refill [facility] [address] [place] [address] Adriana Palencia MD Acquired hypothyroidism 09/11/2024 Refill [facility] [address] [place] [address] Adriana Palencia MD Mild intermittent asthma, unspecified whether complicated 09/10/2024 Refill [facility] [address] [place] [address] Adriana Palencia MD Class 1 obesity due to excess calories with serious comorbidity and body mass index (BMI) of 32.0 to 32.9 in adult 09/10/2024 Orders Only [facility] [address] [place] [address] Adriana Palencia MD Fibromyalgia (Primary Dx); Class 1 obesity due to excess calories with serious comorbidity and body mass index (BMI) of 32.0 to 32.9 in adult 09/10/2024 Orders Only [address] [address] Adriana Palencia MD Acquired hypothyroidism (Primary Dx) from Last 3 Months Immunizations Immunization Administration [...] Sign Reading Time Taken Comments Blood Pressure 108/63 11/25/2024 10:54 AM EDT Pulse 61 11/25/2024 10:54 AM EDT Temperature 35.7 C (96.2 F) 11/25/2024 10:54 AM EDT Respiratory Rate 14 11/25/2024 10:54 AM EDT Oxygen Saturation 99% 11/25/2024 10:54 AM EDT Inhaled Oxygen Concentration - - Weight 68.3 kg (150 lb 9.6 oz) 11/25/2024 10:54 AM EDT Height 160 cm (5' 3 ) 11/25/2024 10:54 AM EDT Body Mass Index 26.68 11/25/2024 10:54 AM EDT Plan of Treatment Upcoming Encounters Date Type Department Care Team (Late st Contact Info) Description 12/09/2024 3:30 PM EDT Office Visit [facility] [address] [place] [address] Manju Jennings NP [address] [place] [address] Health Maintenance Due Date Last Done Comments CT Colonography 1970 Colonoscopy 1970 Colorectal Cancer Screening 1970 FIT DNA/Cologuard 1970 FIT 1970 FOBT 1970 Sigmoidoscopy 1970 Zoster Vaccines (2 of 2) 04/03/2023 02/06/2023 COVID-19 Vaccine ( - season) 2023 08/04/2020, 07/07/2020 Depression Monitoring 12/17/2023 06/16/2023, 024 SDOH Screening 06/08/2024 06/08/2023 Influenza Vaccine (#1) 2024 02/06/2023 Mammogram 02/21/2025 02/22/2024, 05/2022, 08/27/2020, Additional history exists Alcohol/Substance Use Screening 03/29/2025 03/29/2024 Tobacco Screening 04/16/2025 04/16/2024 Disability Screening 12/03/2025 12/03/2024 Cervical Cancer Screening 07/02/2026 HPV/Cotest 07/02/2026 07/02/2021, [...] Name Priority Date/Time Associated Diagnosis Comments MR SHOULDER WO CONTRAST RIGHT Routine 10/29/2024 8:24 PM EDT TSH Routine 10/25/2024 10:54 AM EDT T4, FREE Routine 10/25/2024 10:54 AM EDT MR HUMERUS WO CONTRAST RIGHT Routine 10/08/2024 1:30 PM EDT BI MAMMOGRAM SCREENING TOMOSYNTHESIS BILATERAL Routine 02/22/2024 [...] Relevant to Health Maintenance Results * MR Shoulder w/o Contrast Right (10/29/2024 8:24 PM EDT) Anatomical Region Laterality Modality Upper Extremities, Shoulder Right Magn etic Resonance 10/29/2024 8:24 PM EDT Narrative 10/29/2024 8:26 PM EDT [place] [address] Magnetic Resonance Report Signed Patient: Sudha Dean MR#: [id number] : 1970 Acct:[id number] Age/Sex: 54 / F ADM Date: 10/26/24 Loc: HO.MRI Attending Dr: Kane Downey MD Ordering Physician: Kane Downey MD Date of Service: 10/26/24 Procedure(s): MR shoulder RT wo con Accession Number(s): [id number] cc: Adriana Palencia MD; Kane Downey MD CLINICAL HISTORY: M23.91 - Unspecified internal derangement of right knee MRI right shoulder without contrast Comparison: None provided Findings: Increased signal along undersurface of distal supraspinatus tendon. Similar undersurface signal noted infraspinatus tendon. Question tendinopathy versus partial thickness undersurface tear. Edema also noted along superior aspect of these tendons. No complete transverse signal abnormality is identified. Remaining rotator cuff tendons are intact. Biceps tendon normally positioned without tear. Glenoid labrum heterogeneous without dodie tear. No significant focal bony signal abnormality noted. Superolateral humeral head subchondral cysts noted. No joint effusion is identified. Degenerative change acromioclavicular joint. Impression: Question tendinopathy versus partial-thickness tears supraspinatus and infraspinatus tendons No other significant abnormality This document has been electronically signed by: Robbie Sahu MD on 10/29/2024 20:24:04 Dictated By: Robbie Sahu MD Signed By: <Electronically signed by Robbie Sahu MD in OV> 10/29/242024 DD/ 23 TD/TT: 10/29/242023 [employer] Supervisor: Procedure Note Preethi, Image - 10/29/2024 [place] [address] Magnetic Resonance Report Signed Patient: Sudha Dean NMR#: [id number] : 1970Acct:[id number] Age/Sex: 54 / FADM Date: 10/26/24 Loc: HO.MRI Attending Dr: Kane Downey MD Ordering Physician: Kane Downey MD Date of Service: 10/26/24 Procedure(s): MR shoulder RT wo con Accession Number(s): [id number] cc: Adriana Palencia MD; Kane Downey MD CLINICAL HISTORY: M23.91 - Unspecified internal derangement of right knee MRI right shoulder without contrast Comparison: None provided Findings: Increased signal along undersurface of distal supraspinatus tendon. Similar undersurface signal noted infraspinatus tendon. Question tendinopathy versus partial thickness undersurface tear. Edema also noted along superior aspect of these tendons. No complete transverse signal abnormality is identified. Remaining rotator cuff tendons are intact. Biceps tendon normally positioned without tear. Glenoid labrum heterogeneous without dodie tear. No significant focal bony signal abnormality noted. Superolateral humeral head subchondral cysts noted. No joint effusion is identified. Degenerative change acromioclavicular joint. Impression: Question tendinopathy versus partial-thickness tears supraspinatus and infraspinatus tendons No other significant abnormality This document has been electronically signed by: Robbie Sahu MD on 10/29/2024 20:24:04 Dictated By: Robbie Sahu MD Signed By: <Electronically signed by Robbie Sahu MD in OV> 10/29/242024 DD/ 23 TD/TT: 10/29/242023 [employer] Supervisor: [facility] External Provider IMG MRI PROCEDURES Final Result * (ABNORMAL) TSH (10/25/2024 10:54 AM EDT) Thyroid Stimulating Hormone 0.06(L) 0.32 - 4.0 uIU/mL [facility] Comment:TSH 3rd Generation ( [facility]) 10/25/2024 10:5 4 AM EDT 10/25/2024 10:54 AM EDT Generic External Data Provider LAB BLOOD ORDERAB LES Final Result Performing Organization Address [facility] Co de Phone Number [facility] [address] [place] [phone] * T4, Free (10/25/2024 10:54 AM EDT) Free T4 (Free Thyroxine) 1.17 0.71 - 1.85 ng/dL [facility] 10/25/2024 10:5 4 AM EDT 10/25/2024 10:54 AM EDT Generic External Data Provider LAB BLOOD ORDERAB LES Final Result Performing Organization Address [facility] de Phone Number [facility] [address] [place] [phone] * MR Humerus w/o Contrast Right (10/08/2024 1:30 PM EDT) Anatomical Region Laterality Modality Upper Extremities, Humerus Right Magne tic Resonance 10/08/2024 1:30 PM EDT Narrative 10/08/2024 2:25 PM EDT [address] [address] Magnetic Resonance Report Signed Patient: Sudha Dean MR#: [id number] : 1970 Acct:[id number] Age/Sex: 54 / F ADM Date: 10/08/24 Loc: HO.MRI Attending Dr: Kane Downey MD Ordering Physician: Kane Downey MD Date of Service: 10/08/24 Procedure(s): MR humerus RT wo con Accession Number(s): [id number] cc: Adriana Palencia MD; Kane Downey MD [...] 10/08/24 1422 DD/ 1330 TD/TT: 10/08/24 1400 [employer] Supervisor: Procedure Note Donotuseinterpreter, Image - 10/08/[address] [address] Magnetic Resonance Report Signed Patient: Sudha Dean [facility]#: [id number] : 1970Acct:[id number] Age/Sex: 54 / FADM Date: 10/08/24 Loc: HO.MRI Attending Dr: Kane Downey MD Ordering Physician: Kane Downey MD Date of Service: 10/08/24 Procedure(s): MR humerus RT wo con Accession Number(s): [id number] cc: Adriana Palencia MD; Kane Downey MD [...] 10/08/24 1422 DD/ 1330 TD/TT: 10/08/24 1400 [employer] Supervisor: [facility] External Provider IMG MRI PROCEDURES Final Result * BI Mammogram Screening Tomosynthesis Bilateral (02/22/2024 8:40 AM EST) Anatomical Region Laterality Modality Breast Bilateral Mammography 02/22/2024 8:40 AM EST Narrative 03/01/2024 4:10 PM EST [facility] [address] [place] [address] Mammography Report Signed Patient: Sudha Dean MR#: [id number] : 1970 Acct:[id number] Age/Sex: 54 / F ADM Date: 02/22/24 Loc: HO.MAMMO Attending Dr: Adriana Sanches MD Ordering Physician: Adriana Palencia MD Results: 1Negative Date of Service: 02/22/24 Follow Up: 1 Year From Orig inal Mammogram Procedure(s): MM tomosynthesis screening BI Accession Number(s): [id number] cc: Adriana Palencia MD EXAMINATION: MM SCREENING [...] by: Rachana Pablo DO 03/01/2024 04:07 PM [facility] Dictated By: Rachana Pablo DO Signed By: <Electronically signed by Rachana Pablo DO in OV> 03/01/24 1607 DD/ 0840 TD/TT: 02/22/24 0903 [employer] Supervisor: Procedure Note Donotuseinterpreter, Image - 03/01/2024 [facility] [address] [place] [address] Mammography Report Signed Patient: Sudha Dean [facility]#: [id number] : 1970Acct:[id number] Age/Sex: 54 / FADM Date: 02/22/24 Loc: [facility] Attending Dr: Adriana Sanches MD Ordering Physician: Adriana Palencia MDResults: 1Negative Date of Service: 02/22/24Follow Up: 1 Year From Orig ina Mammogram Procedure(s): MM tomosynthesis screening BI Accession Number(s): [id number] cc: Adriana Palencia MD EXAMINATION: MM SCREENING [...] by: Rachana Pablo DO 03/01/2024 04:07 PM [facility] Dictated By: Rachana Pablo DO Signed By: <Electronically signed by Rachana Pablo DO in OV> 03/01/24 1607 DD/ 0840 TD/TT: 02/22/24 0903 [employer] Supervisor: us Adriana Sanches MD IMG BI PROCEDURES Fin al Result * (ABNORMAL) Lipid Panel with Reflex to Direct LDL (12/13/2023 12:18 PM EDT) Triglycerides 52 <150 mg/dL [facility] Comment:Desirable Triglyceri de: less than 150 mg/dLBorderline High Triglyceride 150-199 mg/dLHigh Triglyceride: 200-499 mg/dLVery High Triglyceride: greater than or equal to 5OO mg/dL Cholesterol 187 <200 mg/dL [facility] Comment:Desirable Cholestero l: less than 200 mg/dLBorderline High Cholesterol: 200-239 mg/dLHigh Cholesterol: greater than 239 mg/dL LDL Cholesterol Calculated 109(H) <100 mg/dL [facility] Comment:Desirable LDL: less than 100 mg/dLNear Optimal/Above Optimal LDL: 110- 129 mg/dLBorderline High LDL: 130-159 mg/dLHigh LDL: 160-189 mg/dLVery High LDL: greater than or equal to 190 mg/dL HDL Cholesterol 68 >40 mg/dL [facility] Comment:Desirable HDL: great er than 40 mg/dL Note: This HDL assay may give artificially low results in patients with liver disease. Blood 12/13/2023 12:1 8 PM EDT 12/13/2023 1:25 PM EDT Adriana Sanches MD LAB BLOOD ORDERABLES Final Result Performing Organization Address [facility] Co de Phone Number [facility] [address] [place] [phone] * Hepatitis C Viral RNA, Quantitative, Real-Time PCR (12/13/2023 12:18 PM EDT) Hepatitis C Viral Load <15 NOT DETECTED NOT DETECTED IU/mL [facility] HCV Log PCR <1.18 NOT DETECTED NOT DETECTED Log IU/mL [facility] Comment:For additional infor mation, please refer tohttp://education.BIOCUREX/faq/IZU88x5(This link is being provided for informational/educational purposes only.)THIS TEST WAS PERFORMED AT:[facility] [place] [phone] KENNEDY MD Blood 12/13/2023 12:1 8 PM EDT 12/13/2023 1:25 PM EDT us Adriana Sanches MD LAB BLOOD ORDERABLES Final Result Performing Organization Address [facility] Co de Phone Number [facility] [address] [place] [phone] * HIV-1/2 Antigen and Antibodies, Fourth Generation, with Reflexes (12/13/2023 12:18 PM EDT) HIV AB/AG Nonreactive Nonreactive [facility] Comment:HIV-1 p24 Ag and/or HIV-1/HIV-2 Ab not detected.A test result that is nonreactive does not exclude thepossibility of exposure to or infection with HIV-1 and/orHIV-2. Nonreactive results in this assay for individualswith prior exposure to HIV-1 and/or HIV-2 may be due toantigen and antibody levels that are below the limit ofdetection of this assay.The [employer] HIV Ag/Ab Combo assay result andsupplemental assay results should be interpreted inconjunction with the patient's clinical presentation,history and other laboratory results. If the results areinconsistent with clinical evidence, additional testing issuggested to confirm the result. Blood Venous blood specimen / Unknown 12/13/2023 12:18 PM EDT 12/13/2023 1:15 PM EDT us Adriana Sanches MD LAB BLOOD ORDERABLES Final Result [facility] [address] [place] [address] [phone] * Hm Pap Smear (07/02/2021) Pap Negative for intraephithelial lesion or malignancy Negative for intraephithelial lesion or malignancy, Other HPV Undetected Historical Provider HEALTH MAINTENANCE Final Result from Last 3 Months or Most Recently Relevant to Health Maintenance [place] [address] [place] [address] STANDARD [employer] ONE CARE < 65 Care Teams Bottle House Pumper Relationship Specialty Start Date End Date Adriana Palencia MD [address] [place] [phone] PCP - General Family Medicine 06/01/18
--- OUTSIDE RECORDS SUMMARY | 2024-12-09 14:33 | XMS_ITS | Encounter Summary ---
Author Organization [employer] Address [address] [place] [address] 7 [place] [address] Care Team Providers Care Account Technician Name Role Phone Adriana Palencia MD Primary Care Provide r Encounter Details Date Type Department Care Team ([facility] Contact Info) Description 03/17/2022 Abstract [facility] [address] [place] [address] [phone] Provider, MD Gurvinder Social History Tobacco Use [...] 3:30 PM EDT Office Visit [facility] [address] [place], [place] [phone] Manju Jennings NP [address] [place], [place] [phone] documented as of this encounter Visit Diagnoses Not on filedocumented in this encounter Care Teams Account Technician Relationship Specialty Start Date End Date Adriana Palencia MD [address] [place] [phone] PCP - General Family Medicine 06/01/18 documented as of this encounter
--- OUTSIDE RECORDS SUMMARY | 2024-12-09 14:34 | XMS_ITS | Encounter Summary ---
Author Organization [employer] Address [address] [facility] 7 [place] [address] Care Team Providers Care Implementation Analyst Name Role Phone Adriana Palencia MD Primary Care Provide r Reason for Visit * Reason Comments Med Refill Encounter Details Date Type Department Care Team ([facility] st Contact Info) Description 08/02/2024 Refill [facility] [address] [place] [address] Adriana Palencia MD [address] [place] [address] Class 1 obesity due to excess calories [...] Description 12/09/2024 3:30 PM EDT Office Visit [facility] [address] [place] [address] Manju Jennings NP [address] [place] [address] documented as of this encounter Visit Diagnoses Diagnosis Class 1 obesity due to excess calories with serious comorbidity and body mass index (BMI) of 32.0 to 32.9 in adult documented in this encounter Additional Health Concerns Assessment Noted Time PHQ-9 Depression Total Score: 15 024 9:44 AM EST documented as of this encounter Care Teams Implementation Analyst Relationship Specialty Start Date End Date Adriana Palencia MD [address] [place] [address] PCP - General Family Medicine 06/01/18 documented as of this encounter
--- OUTSIDE RECORDS SUMMARY | 2024-12-09 14:34 | XMS_ITS | Encounter Summary ---
Author Organization [employer] Address [address] [place] [address] 7 [place] [address] Care Team Providers Care Icebox Worker Name Role Phone Adriana Palencia MD Primary Care Provide r Reason for Visit * Reason Comments Med Refill Encounter Details Date Type Department Care Team (Late Contact Info) Description 10/31/2022 Refill [facility] [address] [place] [phone] Adriana Palencia MD [address] [place] [phone] Social History Tobacco Use Types Packs/Day Years [...] Description 12/09/2024 3:30 PM EDT Office Visit [facility] [address] [place] [phone] Manju Jennings NP [address] [place] [address] documented as of this encounter Visit Diagnoses Not on filedocumented in this encounter Additional Health Concerns Assessment Noted Time PHQ-9 Depression Total Score: 14 023 3:05 PM EDT documented as of this encounter Care Teams Icebox Worker Relationship Specialty Start Date End Date Adriana Palencia MD [address] [place] [address] PCP - General Family Medicine 06/01/18 documented as of this encounter
--- OUTSIDE RECORDS SUMMARY | 2024-12-09 14:34 | XMS_ITS | Encounter Summary ---
Author Organization [employer] Address [address] [facility] 7 [place] [address] Care Team Providers Care Mail Carriers Supervisor Name Role Phone Adriana Palencia MD Primary Care Provide r Reason for Visit * Reason Comments Med Refill Encounter Details Date Type Department Care Team ([facility] st Contact Info) Description 07/29/2024 Refill [facility] [address] [place] [address] Adriana Palencia MD [address] [place] [address] Class 1 obesity due to excess calories [...] Description 12/09/2024 3:30 PM EDT Office Visit [facility] [address] [place] [address] Manju Jennings NP [address] [place] [address] documented as of this encounter Visit Diagnoses Diagnosis Class 1 obesity due to excess calories with serious comorbidity and body mass index (BMI) of 32.0 to 32.9 in adult documented in this encounter Additional Health Concerns Assessment Noted Time PHQ-9 Depression Total Score: 15 024 9:44 AM EST documented as of this encounter Care Teams Mail Carriers Supervisor Relationship Specialty Start Date End Date Adriana Palencia MD [address] [place] [address] PCP - General Family Medicine 06/01/18 documented as of this encounter
--- OUTSIDE RECORDS SUMMARY | 2024-12-09 14:34 | XMS_ITS | Encounter Summary ---
Author Organization [employer] Address [address] [place] [address] 7 [place] [address] Care Team Providers Care Chief Investment Officer Name Role Phone Adriana Palencia MD Primary Care Provide r Reason for Visit * Reason Comments Med Refill Encounter Details Date Type Department Care Team (Late Contact Info) Description 01/10/2023 Refill [facility] [address] [place] [phone] Adriana Palencia MD [address] [place] [phone] Social History Tobacco Use Types Packs/Day Years [...] Description 12/09/2024 3:30 PM EDT Office Visit [facility] [address] [place] [phone] Manju Jennings NP [address] [place] [address] documented as of this encounter Visit Diagnoses Not on filedocumented in this encounter Additional Health Concerns Assessment Noted Time PHQ-9 Depression Total Score: 14 023 3:05 PM EDT documented as of this encounter Care Teams Chief Investment Officer Relationship Specialty Start Date End Date Adriana Palencia MD [address] [place] [address] PCP - General Family Medicine 06/01/18 documented as of this encounter
--- OUTSIDE RECORDS SUMMARY | 2024-12-09 14:34 | XMS_ITS | Encounter Summary ---
Author Organization [employer] Address [address] [facility] 7 [place] [address] Care Team Providers Care Dressmaker Garment Fitter Name Role Phone Adriana Palencia MD Primary Care Provide r Reason for Visit * Reason Onset Date Comments Chart Prep 12/05/2024 Encounter Details Date Type Department Care Team ([facility] st Contact Info) Description 12/05/2024 Telephone [facility] [address] [place] [address] Adriana Palencia MD [address] [place] [address] Chart Prep Social History Tobacco Use Types [...] your housing situation today? I have jasvir aneudy 01/30/[address] you li [...] encounter Miscellaneous Notes * Telephone Encounter - Ashley Zelaya MA - 12/05/2024 2:20 PM EDT Chart Prep Labs: not applicable Images: not applicable Referrals: not applicable Vaccines due: Covid and Zoster Screenings: colonoscopy Overdue care gaps: SDOH, PHQ-9, PEDRO PABLO-7, and Oral health screening documented in this encounter Plan of Treatment Upcoming Encounters Date Type Department Care Team (Late st Contact Info) Description 12/09/2024 3:30 PM EDT Office Visit [facility] [address] [place] [address] Manju Jennings NP 230 [place] [address] documented as of this encounter Visit Diagnoses Not on filedocumented in this encounter Additional Health Concerns Assessment Noted Time PHQ-9 Depression Total Score: 15 024 9:44 AM EST documented as of this encounter Care Teams Dressmaker Garment Fitter Relationship Specialty Start Date End Date Adriana Palencia MD [address] [place] [address] PCP - General Family Medicine 06/01/18 documented as of this encounter
--- OUTSIDE RECORDS SUMMARY | 2024-12-09 14:34 | XMS_ITS | Encounter Summary ---
Author Organization [employer] Address [address] [place] [address] 7 [place] [address] Care Team Providers Care Respiratory Therapy Manager Name Role Phone Adriana Palencia MD Primary Care Provide r Encounter Details Date Type Department Care Team (Late st Contact Info) Description 01/18/2023 Abstract [facility] MED[facility]INE [address] [place] [phone] Eliane Raman Social History Tobacco Use Types [...] Description 12/09/2024 3:30 PM EDT Office Visit [facility] [address] [place], [place] [phone] Manju Jennings NP 230 [place], [place] [phone] documented as of this encounter Procedures Procedure Name Priority Date/Time Associated Diagnosis Comments HM PAP/HPV Routine 07/02/2021 documented in this encounter Results * Pap Smear (07/02/2021) Pap Negative for intraephithelial lesion or malignancy Negative for intraephithelial lesion or malignancy, Other HPV Undetected us Historical Provider MD HEALTH MAINTENANCE Final Result documented in this encounter Visit Diagnoses Not on filedocumented in this encounter Additional Health Concerns Assessment Noted Time PHQ-9 Depression Total Score: 14 023 3:05 PM EDT documented as of this encounter Care Teams Respiratory Therapy Manager Relationship Specialty Start Date End Date Adriana Palencia MD [address] [place] [address] PCP - General Family Medicine 06/01/18 documented as of this encounter
--- OUTSIDE RECORDS SUMMARY | 2024-12-09 14:34 | XMS_ITS | Encounter Summary ---
Author Organization [employer] Address [address] [facility] 7 [place] [address] Care Team Providers Care Power Press Operator Name Role Phone Adriana Palencia MD Primary Care Provide r Reason for Visit * Reason Comments Med Refill Encounter Details Date Type Department Care Team ([facility] st Contact Info) Description 08/31/2023 Refill [facility] [address] [place] [address] Adriana Palencia MD 230 [place] [address] Gastroesophageal reflux disease without esophagitis Social History [...] Description 12/09/2024 3:30 PM EDT Office Visit [facility] [address] [place] [address] Manju Jennings NP [address] [place] [address] documented as of this encounter Visit Diagnoses Diagnosis Gastroesophageal reflux disease without esophagitis Esophageal reflux documented in this encounter Additional Health Concerns Assessment Noted Time PHQ-9 Depression Total Score: 15 024 9:44 AM EST documented as of this encounter Care Teams Power Press Operator Relationship Specialty Start Date End Date Adriana Palencia MD [address] [place] [address] PCP - General Family Medicine 06/01/18 documented as of this encounter
--- OUTSIDE RECORDS SUMMARY | 2024-12-09 14:34 | XMS_ITS | Encounter Summary ---
Author Organization [employer] Address [address] [facility] [address] 7[address] [place] [address] Care Team Providers Care Kitchen Clerk Name Role Phone Adriana Palencia MD Primary Care Provide r Encounter Details Date Type Department Care Team ([facility] st Contact Info) Description 03/14/2023 Abstract [facility] MED[facility]INE [address] [place] [address] Eliane Raman Social History Tobacco Use Types [...] Description 12/09/2024 3:30 PM EDT Office Visit [facility] [address] [place] [address] Manju Jennings NP 230 [place], [place] [phone] documented as of this encounter Visit Diagnoses Not on filedocumented in this encounter Additional Health Concerns Assessment Noted Time PHQ-9 Depression Total Score: 14 023 3:05 PM EDT documented as of this encounter Care Teams Kitchen Clerk Relationship Specialty Start Date End Date Adriana Palencia MD [address] [place], [place] [phone] PCP - General Family Medicine 06/01/18 documented as of this encounter
--- OUTSIDE RECORDS SUMMARY | 2024-12-09 14:34 | XMS_ITS | Encounter Summary ---
Author Organization [facility] Address [address] [facility] [address] [place] [address] Phone Care Team Providers Care Superintendent Storage Area Name Role Phone Unknown, Unknown Primary Care Provider Nikia pina Encounter Details Date Type Department Care Team (Latest Contact Info) Description 04/21/2017 Ancillary Orders [facility] [address] [place] [address] [place] [address] Hector Zamora DO [address] [place] [address] Palpitations; Chest pain, unspecified type; Syncope, unspecified [...] type documented in this encounter Care Teams Superintendent Storage Area Relationship Specialty Start Date End Date Unknown, Unknown, MD PCP - General 04/21/17 documented as of this encounter Additional Source Comments The information contained in this document represents components of the legal health record. It is not the complete legal health record.[facility]
--- OUTSIDE RECORDS SUMMARY | 2024-12-09 14:34 | XMS_ITS | Clinical Summary ---
Author Organization [facility] Address [address] [place] [address] Phone Care Team Providers Care Cloth Framer Name Role Phone Maribel Garcia XANDER Primary Care Provider [phone] Allergies No known active allergies Medications No [...] patient's age to complete this topic [place] [address] [place] [address] MEDICARE Member Subscriber Plan / Payer (Ef fective 2024-Present) Name:Sudha Dean Relation to Subscriber:Self Name:Sudha Dean Payer ID:[id number] Group ID:Not on file Type:Not on file Address: [address] [place] [phone] Care Teams Cloth Framer Relationship Specialty Start Date End Date Maribel Garcia FNP PCP - General Internal Medicine 04/11/13
--- OUTSIDE RECORDS SUMMARY | 2024-12-09 14:34 | XMS_ITS | Encounter Summary ---
Author Organization [employer] Address 75 [facility] 7 [place] [address] Care Team Providers Care Field Hockey Coach Name Role Phone Adriana Palencia MD Primary Care Provide r Reason for Visit * Reason Comments Med Refill Encounter Details Date Type Department Care Team ([facility] st Contact Info) Description 12/07/2024 Refill [facility]INE [address] [place] [address] Adriana Palencia MD 230 [place] [address] Social History Tobacco Use Types Packs/Day Years [...] Description 12/09/2024 3:30 PM EDT Office Visit [facility] [address] [place] [address] Manju eJnnings NP [address] [place] [address] documented as of this encounter Visit Diagnoses Not on filedocumented in this encounter Additional Health Concerns Assessment Noted Time PHQ-9 Depression Total Score: 15 024 9:44 AM EST documented as of this encounter Care Teams Field Hockey Coach Relationship Specialty Start Date End Date Adriana Palencia MD [address] [place] [address] PCP - General Family Medicine 06/01/18 documented as of this encounter
--- OUTSIDE RECORDS SUMMARY | 2024-12-09 14:34 | XMS_ITS | Encounter Summary ---
Author Organization [employer] Address [address] [facility] 7 [place] [address] Care Team Providers Care Heavy Mobile Equipment Repairer Name Role Phone Adriana Palencia MD Primary Care Provide r Reason for Visit * Reason Comments Med Refill Encounter Details Date Type Department Care Team ([facility] st Contact Info) Description 07/19/2024 Refill [facility]INE [address] [place] [address] Adriana Palencia MD [address] [place] [address] Class 1 obesity due to excess calories [...] Description 12/09/2024 3:30 PM EDT Office Visit [facility] [address] [place] [address] Manju Jennings NP [address] [place] [address] documented as of this encounter Visit Diagnoses Diagnosis Class 1 obesity due to excess calories with serious comorbidity and body mass index (BMI) of 32.0 to 32.9 in adult documented in this encounter Additional Health Concerns Assessment Noted Time PHQ-9 Depression Total Score: 15 024 9:44 AM EST documented as of this encounter Care Teams Heavy Mobile Equipment Repairer Relationship Specialty Start Date End Date Adriana Palencia MD [address] [place] [address] PCP - General Family Medicine 06/01/18 documented as of this encounter
--- OUTSIDE RECORDS SUMMARY | 2024-12-09 14:34 | XMS_ITS | Encounter Summary ---
Author Organization [employer] Address [address] [place] [address] 7 [place] [address] Care Team Providers Care Farmworker Pullet Farm Name Role Phone Adriana Palencia MD Primary Care Provide r Reason for Visit * Reason Comments Med Refill Encounter Details Date Type Department Care Team ([facility] st Contact Info) Description 09/25/2022 Refill [facility] [address] [place] [address] Adriana Palencia MD [address] [place] [address] Fibromyalgia Social History Tobacco Use Types Packs/Day [...] 3:30 PM EDT Office Visit [facility] [address] [place] [address] Manju Jennings NP [address] [place] [address] documented as of this encounter Visit Diagnoses Diagnosis Fibromyalgia Unspecified myalgia and myositis documented in this encounter Additional Health Concerns Assessment Noted Time PHQ-9 Depression Total Score: 14 023 3:05 PM EDT documented as of this encounter Care Teams Farmworker Pullet Farm Relationship Specialty Start Date End Date Adriana Palenica MD 230 [place] [address] PCP - General Family Medicine 06/01/18 documented as of this encounter
--- OUTSIDE RECORDS SUMMARY | 2024-12-09 14:34 | XMS_ITS | Encounter Summary ---
Author Organization [employer] Address [address] [facility] 7 [place] [address] Care Team Providers Care Tank Crewmember Name Role Phone Adriana Palencia MD Primary Care Provide r Reason for Visit * Reason Comments Med Refill Encounter Details Date Type Department Care Team ([facility] st Contact Info) Description 09/12/[address] [facility]INE [address] [place] [address] Adriana Palencia MD [address] [place] [address] Acquired hypothyroidism Social History Tobacco Use Types Packs/Day Years [...] Description 12/09/2024 3:30 PM EDT Office Visit [facility] [address] [place] [address] Manju Jennings NP [address] [place] [address] documented as of this encounter Visit Diagnoses Diagnosis Acquired hypothyroidism Unspecified hypothyroidism documented in this encounter Additional Health Concerns Assessment Noted Time PHQ-9 Depression Total Score: 15 024 9:44 AM EST documented as of this encounter Care Teams Tank Crewmember Relationship Specialty Start Date End Date Adriana Palencia MD [address] [place] [address] PCP - General Family Medicine 06/01/18 documented as of this encounter
--- OUTSIDE RECORDS SUMMARY | 2024-12-09 14:34 | XMS_ITS | Clinical Summary ---
Author Organization [employer] Address [address] [place] [address] Care Team Providers Care Expander Name Role Phone Unavailable Primary Care Provider [...]
--- OUTSIDE RECORDS SUMMARY | 2024-12-09 14:34 | XMS_ITS | Clinical Summary ---
Author Organization [facility] Address [address] [phone] Phone Care Team Providers Care Television Equipment Operator Name Role Phone Unknown, Unknown Primary Care Provider Nikia pina Social History Tobacco Use Types Packs/Day Years Used Date Smoking Tobacco: Never Assessed Comments Unknown Sex and Gender Information Value Date Recorded Sex Assigned at Not on file Legal Sex Female 11:16 AM EST Gender Identity Not on file Sexual Orientation Not on file Plan of Treatment Not on file Medical Devices Not on file Insurance MEDICARE PART A & B MEDICARE PART A & B MEDICARE PART A & B MEDICARE PART A & B MEDICARE PART A & B MEDICARE PART A & B MEDICARE PART A & B MEDICARE PART A & B MEDICARE PART A & B Care Teams Television Equipment Operator Relationship Specialty Start Date End Date Unknown, Unknown, PCP - General 04/21/17 Additional Source Comments The information contained in this document represents components of the legal health record. It is not the complete legal health record.[facility]
--- OUTSIDE RECORDS SUMMARY | 2024-12-09 14:34 | XMS_ITS | Encounter Summary ---
Author Organization [employer] Address [address] [facility] 7 [place] [address] Care Team Providers Care Custom Tailor Name Role Phone Adriana Palencia MD Primary Care Provide r Reason for Visit * Reason Comments Med Change Request Encounter Details Date Type Department Care Team ([facility] st Contact Info) Description 08/06/2024 Refill [facility]INE [address] [place] [address] Adriana Palencia MD [address] [place] [address] Class 1 obesity due to excess calories [...] Description 12/09/2024 3:30 PM EDT Office Visit [facility] [address] [place] [address] Manju Jennings NP [address] [place] [address] documented as of this encounter Visit Diagnoses Diagnosis Class 1 obesity due to excess calories with serious comorbidity and body mass index (BMI) of 32.0 to 32.9 in adult documented in this encounter Additional Health Concerns Assessment Noted Time PHQ-9 Depression Total Score: 15 024 9:44 AM EST documented as of this encounter Care Teams Custom Tailor Relationship Specialty Start Date End Date Adriana Palencia MD [address] [place] [address] PCP - General Family Medicine 06/01/18 documented as of this encounter
--- OUTSIDE RECORDS SUMMARY | 2024-12-09 14:34 | XMS_ITS | Encounter Summary ---
Author Organization [employer] Address [address] [facility] 7 [place] [address] Care Team Providers Care Printer Helper Name Role Phone Adriana Palencia MD Primary Care Provide r Reason for Visit * Reason Comments Med Change Request Encounter Details Date Type Department Care Team ([facility] st Contact Info) Description 09/10/2024 Refill [facility] [address] [place] [address] Adriana Palencia MD [address] [place] [address] Class 1 obesity due to excess calories [...] Description 12/09/2024 3:30 PM EDT Office Visit [facility] [address] [place] [address] Manju Jennings NP [address] [place] [address] documented as of this encounter Visit Diagnoses Diagnosis Class 1 obesity due to excess calories with serious comorbidity and body mass index (BMI) of 32.0 to 32.9 in adult documented in this encounter Additional Health Concerns Assessment Noted Time PHQ-9 Depression Total Score: 15 024 9:44 AM EST documented as of this encounter Care Teams Printer Helper Relationship Specialty Start Date End Date Adriana Palencia MD [address] [place] [address] PCP - General Family Medicine 06/01/18 documented as of this encounter
--- OUTSIDE RECORDS SUMMARY | 2024-12-09 14:34 | XMS_ITS | Encounter Summary ---
Author Organization [employer] Address [address] [facility] 7 [place] [address] Care Team Providers Care Qualitative Field Project Manager Name Role Phone Adriana Palencia MD Primary Care Provide r Reason for Visit * Reason Onset Date Comments No Show 12/06/2024 Encounter Details Date Type Department Care Team ([facility] st Contact Info) Description 12/06/2024 Telephone [facility]INE 230 [place] [address] Bree Ag MD [address] [place] [address] No Show Social History Tobacco Use Types Packs/Day Years [...] encounter Miscellaneous Notes * Telephone Encounter - Katrin Stovlal RN - 12/06/2024 1:32 PM EDT TC placed to pt., and pt. Agrees to r/s to Monday12/09/24 at 3:30pm with SIL Nunes * Telephone Encounter - Elo Greene - 12/06/2024 12:42 PM EDT Pt no showed to appt on 12/06/24 documented in this encounter Plan of Treatment Upcoming Encounters Date Type Department Care Team (Late st Contact Info) Description 12/09/2024 3:30 PM EDT Office Visit [facility] [address] [place] [address] Manju Jennings NP [address] [place] [address] documented as of this encounter Visit Diagnoses Not on filedocumented in this encounter Additional Health Concerns Assessment Noted Time PHQ-9 Depression Total Score: 15 024 9:44 AM EST documented as of this encounter Care Teams Qualitative Field Project Manager Relationship Specialty Start Date End Date Adriana Palencia MD [address] [place] [address] PCP - General Family Medicine 06/01/18 documented as of this encounter
--- OUTSIDE RECORDS SUMMARY | 2024-12-09 14:34 | XMS_ITS | Encounter Summary ---
Author Organization [employer] Address [address] [facility] 7 [place] [address] Care Team Providers Care Box Estimator Name Role Phone Adriana Palencia MD Primary Care Provide r Reason for Visit * Reason Comments Med Refill Encounter Details Date Type Department Care Team ([facility] st Contact Info) Description 08/03/2024 Refill [facility] MED[facility]INE [address] [place] [address] Adriana Palencia MD [address] [place] [address] Class 1 obesity due to excess calories [...] Visit [facility]INE [address] [place] [address] Manju Jennings NP [address] [place] [address] documented as of this encounter Visit Diagnoses Diagnosis Class 1 obesity due to excess calories with serious comorbidity and body mass index (BMI) of 32.0 to 32.9 in adult documented in this encounter Additional Health Concerns Assessment Noted Time PHQ-9 Depression Total Score: 15 024 9:44 AM EST documented as of this encounter Care Teams Box Estimator Relationship Specialty Start Date End Date Adriana Palencia MD [address] [place] [address] PCP - General Family Medicine 06/01/18 documented as of this encounter
--- OUTSIDE RECORDS SUMMARY | 2024-12-09 14:34 | XMS_ITS | Encounter Summary ---
Author Organization [employer] Address [address] [facility] 7 [place] [address] Care Team Providers Care Auto Research Engineer Name Role Phone Adriana Palencia MD Primary Care Provide r Reason for Visit * Reason Onset Date Comments Letter Needed 04/18/2023 Encounter Details Date Type Department Care Team ([facility] st Contact Info) Description 04/18/2023 Telephone [facility]INE [address] [place] [address] Adriana Palencia MD [address] [place] [address] Letter Needed Social History Tobacco Use Types [...] causing herasthma attacks. Please contact pt @ [phone] Persian Speaker documented in this encounter Plan of Treatment Upcoming Encounters Date Type Department Care Team (Late st Contact Info) Description 12/09/2024 3:30 PM EDT Office Visit [facility] MED[facility]INE [address] [place] [address] Manju Jennings NP [address] [place] [address] documented as of this encounter Visit Diagnoses Not on filedocumented in this encounter Additional Health Concerns Assessment Noted Time PHQ-9 Depression Total Score: 14 023 3:05 PM EDT documented as of this encounter Care Teams Auto Research Engineer Relationship Specialty Start Date End Date Adriana Palencia MD [address] [place] [address] PCP - General Family Medicine 06/01/18 documented as of this encounter
--- OUTSIDE RECORDS SUMMARY | 2024-12-09 14:34 | XMS_ITS | Encounter Summary ---
Author Organization [employer] Address [address] [place] [address] 7 [place] [address] Care Team Providers Care Printing Table Worker Name Role Phone Adriana Palencia MD Primary Care Provide r Reason for Visit * Reason Comments Med Refill Encounter Details Date Type Department Care Team (Late Contact Info) Description 11/02/2022 Refill [facility] MEDICINE [address] [place] [phone] Lilia Mcgregor FNP Social History Tobacco Use Types Packs/Day Years [...] Description 12/09/2024 3:30 PM EDT Office Visit [facility] MEDICINE [address] [place], [place] [phone] Manju Jennings NP 230 [place], [place] [phone] documented as of this encounter Visit Diagnoses Not on filedocumented in this encounter Additional Health Concerns Assessment Noted Time PHQ-9 Depression Total Score: 14 023 3:05 PM EDT documented as of this encounter Care Teams Printing Table Worker Relationship Specialty Start Date End Date Adriana Palencia MD [address] [place] [address] PCP - General Family Medicine 06/01/18 documented as of this encounter
--- OUTSIDE RECORDS SUMMARY | 2024-12-09 14:34 | XMS_ITS | Encounter Summary ---
Author Organization [employer] Address [address] [facility] 7t [place] [address] Care Team Providers Care Pitch Worker Name Role Phone Adriana Palencia MD Primary Care Provide r Reason for Visit * Reason Comments Med Refill Encounter Details Date Type Department Care Team ([facility] st Contact Info) Description 04/14/2023 Refill [facility] MEDICINE [address] [place] [address] Heather Wei MD [address] [place] [address] Gastroesophageal reflux disease without esophagitis Social History [...] Description 12/09/2024 3:30 PM EDT Office Visit [facility] MEDICINE [address] [place], [place] [phone] Manju Jennings NP 230 [place], [place] [phone] documented as of this encounter Visit Diagnoses Diagnosis Gastroesophageal reflux disease without esophagitis Esophageal reflux documented in this encounter Additional Health Concerns Assessment Noted Time PHQ-9 Depression Total Score: 14 023 3:05 PM EDT documented as of this encounter Care Teams Pitch Worker Relationship Specialty Start Date End Date Adriana Palencia MD [address] [place] [address] PCP - General Family Medicine 06/01/18 documented as of this encounter
--- OUTSIDE RECORDS SUMMARY | 2024-12-09 14:34 | XMS_ITS | Encounter Summary ---
Author Organization [employer] Address [address] [facility] 7 [place] [address] Care Team Providers Care Vacuum Tester Cans Name Role Phone Adriana Palencia MD Primary Care Provide r Reason for Visit * Reason Onset Date Comments Med Refill 05/21/2024 Encounter Details Date Type Department Care Team ([facility] st Contact Info) Description 05/21/2024 Telephone [facility] [address] [place] [address] Adriana Palencia MD [address] [place] [address] Med Refill Social History Tobacco Use Types [...] MG/0.5ML solution auto-injector To be sent to: [facility]/pharmacy #[id number] [place], [place] - [address] [place] [address] documented in this encounter Plan of Treatment Upcoming Encounters Date Type Department Care Team (Late st Contact Info) Description 12/09/2024 3:30 PM EDT Office Visit [facility] [address] [place] [address] Manju Jennings NP [address] [place] [address] documented as of this encounter Visit Diagnoses Not on filedocumented in this encounter Additional Health Concerns Assessment Noted Time PHQ-9 Depression Total Score: 15 024 9:44 AM EST documented as of this encounter Care Teams Vacuum Tester Cans Relationship Specialty Start Date End Date Adriana Palencia MD [address] [place] [address] PCP - General Family Medicine 06/01/18 documented as of this encounter
--- OUTSIDE RECORDS SUMMARY | 2024-12-09 14:34 | XMS_ITS | Encounter Summary ---
Author Organization [employer] Address [address] [facility] 7t [place] [address] Care Team Providers Care Heat Treat Operator Name Role Phone Adriana Palencia MD Primary Care Provide r Reason for Visit * Reason Comments Med Refill Encounter Details Date Type Department Care Team ([facility] st Contact Info) Description 09/07/2024 Refill [facility] [address] [place] [address] Adriana Palencia MD [address] [place] [address] Polyarthralgia; Class 1 obesity due to excess [...] Description 12/09/2024 3:30 PM EDT Office Visit [facility] [address] [place] [address] Manju Jennings NP [address] [place] [address] documented as of this encounter Visit Diagnoses Diagnosis Polyarthralgia Pain in joint, multiple sites Class 1 obesity due to excess calories with serious comorbidity and body mass index (BMI) of 32.0 to 32.9 in adult documented in this encounter Additional Health Concerns Assessment Noted Time PHQ-9 Depression Total Score: 15 024 9:44 AM EST documented as of this encounter Care Teams Heat Treat Operator Relationship Specialty Start Date End Date Adriana Palencia MD [address] [place] [address] PCP - General Family Medicine 06/01/18 documented as of this encounter
== END 2024-12-09 13:43 | disposition home or self-care (01) ==
LOC: HO.HOS 13:15
PROVIDERS: PCP Internal Medicine; Visit Provider Orthopaedic Surgery
DX: S46.011A Strain of muscle(s) and tendon(s) of the rotator cuff of right shoulder, initial encounter (principal)
CPT/HCPCS: 20610; 99213

== ENCOUNTER → 2024-12-09 13:15 | Outpatient (BNVA) | payer OTHER, SELFPAY | PROVIDERS: PCP Internal Medicine; Visit Provider Orthopaedic Surgery | DX: M25.511 Pain in right shoulder (principal); S46.011S Strain of muscle(s) and tendon(s) of the rotator cuff of right shoulder, sequela | CPT/HCPCS: 20610; 99212; J0665; J1100; J2003 ==

== ENCOUNTER 2024-12-13 23:13 | Emergency (ER) | payer OTHER, SELFPAY ==
--- OUTSIDE RECORDS SUMMARY | 2024-12-09 15:30 | XMS_ITS | Encounter Summary ---
Author Organization [facility] [employer] Address [address] [place] [address] 7 [place] [address] Care Team Providers Care Arabic Teacher Name Role Phone Adriana Palencia MD Primary Care Provide r Reason for Referral * Consultation (Routine) - Pending Review Specialty Diagnoses / Procedures Referred By Pili duong Referred To Contact Gastroenterology Diagnoses Gastroesophageal reflux disease, unspecified whether esophagitis present Manju Jennings NP [address] [place] [address] Phone: tel: fax: Referral ID Status Reason Start Date Expiration Date Visits Requested Visits Authorized [id number] Pending Review Specialty Services Required 12/09/2024 12/09/2025 1 1 Encounter Details Date Type Department Care Team (Latest Contact Info) Description 12/09/2024 3:30 PM EDT Office Visit [facility] [address] [place], [place] [phone] Manju Jennings NP [address] [place], [place] [phone] Gastroesophageal reflux disease, unspecified whether esophagitis present (Primary Dx) Social History Tobacco Use Types Packs/Day Years Used Date Smoking Tobacco: Never Passive Smoke Exposure: Never Smokeless Tobacco: Never Alcohol Use Standard Drinks/Week Comments Never 0 (1 standard drink = 0.6 oz pur e alcohol) Depression Answer Date Recorded Patient Health Questionnaire-9 Score 8 12/09/2024 Patient Health Questionnaire-9 Score 8 12/09/2024 Last PHQ-9: Questionnaire Data Not on file 0 12/09/2024 Housing Stability Answer Date Recorded What is your housing situation today? I have jasvir amado 12/09/[address] you li ve. Do you have problems with any of the following? None of the above 12/09/2024 Food Insecurity Answer Date Recorded Within the past 12 months, y ou worried that your food would run out before you got money to buy more: Sometimes True 2024 Within the past 12 months,th e food you bought just didn't last and you didn't have enough money to get more: Sometimes True 12/09/2024 Transportation Answer Date Recorded In the past 12 months, has l ack of transportation kept you from medical appts, meetings, work or from getting things needed for daily living? Yes, it has kept me from medical appointments or getting medications. 12/09/2024 Utilities Answer Date Recorded In the past 12 months, has t he electric, gas, oil or water company threatened to shut off services in your home? Yes 12/09/2024 Depression Answer Date Recorded Patient Health Questionnaire-2 Score 3 12/09/2024 Internet Access Answer Date Recorded Internet Access Q1 No 12/09/2024 Internet Access Q2 Not on file 12/09/2024 Comments No Sex and Gender Information Value Date Recorded Sex Assigned at Female 02/14/2022 10:18 AM EDT Legal Sex Female 10:18 AM EDT Gender Identity Female 02/14/2022 10:18 AM EDT Sexual Orientation Choose not to disclose 2021 10:18 AM EDT documented as of this encounter Last Filed Vital Signs Vital Sign Reading Time Taken Comments Blood Pressure 136/90 12/09/2024 3:35 PM EDT Pulse 73 12/09/2024 3:35 PM EDT Temperature 36.9 C (98.5 F) 12/09/2024 3:35 PM EDT Respiratory Rate 20 12/09/2024 3:35 PM EDT Oxygen Saturation 98% 12/09/2024 3:35 PM EDT Inhaled Oxygen Concentration - - Weight 69.1 kg (152 lb 4 oz) 12/09/2024 3:35 PM EDT Height 160 cm (5' 3 ) 12/09/2024 3:35 PM EDT Body Mass Index 26.97 12/09/2024 3:35 PM EDT documented in this encounter Functional Status * Over the past 2 weeks, how often have you been bothered by any of the following problems? Question Answer Date of Assessment Author Patient Health Questionnaire -2 Score 3 12/09/2024 3:38 PM EDT Sudha Mitchell MA * Little interest or pleasure in doing things Answer Date of Assessment Author More than half the days 12/09/2024 3:38 PM EDT Sudha Mesa MA * Feeling down, depressed, or hopeless Answer Date of Assessment Author Several days 12/09/2024 3:38 PM EDT Sudha Moncada MA * Trouble falling or staying asleep, or sleeping too much Answer Date of Assessment Author Several days 12/09/2024 3:38 PM EDT Sudha Moncada MA * Feeling tired or having little energy Answer Date of Assessment Author Several days 12/09/2024 3:38 PM EDT Sudha Moncada MA * Poor appetite or overeating Answer Date of Assessment Author Several days 12/09/2024 3:38 PM EDT Sudha Moncada MA * Feeling bad about yourself - or that you are a failure or have let yourself or your family down Answer Date of Assessment Author Several days 12/09/2024 3:38 PM EDT Sudha Moncada MA * Trouble concentrating on things, such as reading the newspaper or watching television Answer Date of Assessment Author Several days 12/09/2024 3:38 PM EDT Sudha Moncada MA * Moving or speaking so slowly that other people could have noticed? Or the opposite - being so fidgety or restless that you have been moving around a lot more than usual. Answer Date of Assessment Author Not at all 12/09/2024 3:38 PM EDT Sudha Moncada MA * Thoughts that you would be better off or hurting yourself in some way Answer Date of Assessment Author Not at all 12/09/2024 3:38 PM EDT Sudha Moncada MA * Patient Health Questionnaire-9 Score Answer Date of Assessment Author 8 12/09/2024 3:38 PM EDT Sudha Moncada MA * How difficult have these problems made it for you to do your work, take care of things at home, or get along with other people? Answer Date of Assessment Author Very difficult 12/09/2024 3:38 PM EDT Sudha Moncada MA * Over the last 2 weeks, how often have you been bothered by any of the following problems? Question Answer Date of Assessment Author Feeling nervous, anxious, or on edge 2 12/09/2024 3:39 PM EDT Sudha Mitchell MA Not being able to stop or control worrying 2 12/09/2024 3:39 PM EDT Sudha Mitchell MA Worrying too much about different things 2 12/09/2024 3:39 PM EDT Sudha Mitchell MA Trouble relaxing 3 12/09/2024 3:39 PM EDT Sudha Mesa MA Being so restless that it is hard to sit still 2 12/09/2024 3:39 PM EDT Sudha Mitchell MA Becoming easily annoyed or irritable 2 12/09/2024 3:39 PM EDT Sudha Mitchell MA Feeling afraid as if something awful might happen 3 12/09/2024 3:39 PM EDT Sudha Gao Ma, [place] PEDRO PABLO-7 Total Score 16 12/09/2024 3:39 PM EDT Sudha Mitchell MA documented as of this encounter Plan of Treatment Scheduled Referrals Name Type Priority Associated Diagnoses Order Schedule Referral to Gastroenterology Outpatient Referral Routine Gastroesophageal reflux disease, unspecified whether esophagitis present Expected: 12/09/2024 (Approximate), Expires: 12/09/2025 documented as of this encounter Visit Diagnoses Diagnosis Gastroesophageal reflux disease, unspecified whether esophagitis present- Primary documented in this encounter Additional Health Concerns Assessment Noted Time PHQ-9 Depression Total Score: 8 12/10/19 3:38 PM EDT documented as of this encounter Care Teams Arabic Teacher Relationship Specialty Start Date End Date Adriana Palencia MD [address] [place] [address] PCP - General Family Medicine 06/01/18 documented as of this encounter
[2024-12-13 23:19] VITALS: BP 110/56; PULSE 60; RESP 20; TEMP 36.1; O2SAT 98; BMI 26.9
--- NOTE | 2024-12-13 23:34 | ED.HA ---
HPI - Headache General Chief Complaint: Headache Stated Complaint: headache, nauseous Time Seen by Provider: 12/13/24 23:21 History of Present Illness ED Provider: Lance Cruz MD HPI Narrative: 54-year-old female it with headache MD elicited complaint: migraine Pertinent past history: migraines Onset (ago): day(s) Onset description: gradually Location: frontal Quality & Timing: throbbing Exacerbating factors: none Relieving factors: rest and dark room Treatments prior to arrival: acetaminophen, ibuprofen and migraine medication Related Data Home Medications ?Medication ?Instructions ?Recorded ?Confirmed lorazepam 0.5 mg tablet 0.5 mg PO BEDTIME PRN Anxiety 03/05/20 10/24/24 omeprazole 20 mg capsule,delayed 20 mg PO DAILY 06/08/21 10/24/24 release valacyclovir 500 mg tablet 500 mg PO DAILY 01/04/22 10/24/24 baclofen 10 mg tablet 10 mg PO TID 06/01/23 10/24/24 diclofenac sodium 1 % topical gel topical 06/01/23 10/24/24 Previous Rx's ?Medication ?Instructions ?Recorded albuterol sulfate 90 mcg/actuation 2 puff inhalation Q4-6H PRN 02/26/20 aerosol inhaler shortness of breath or wheezing #6.7 grams fshojajbup-bmbemeikgqedl-fucgntlq 1 tab PO Q6H PRN pain (scale score 02/16/23 50 mg-325 mg-40 mg tablet 4-6) #10 tabs albuterol sulfate 90 mcg/actuation 2 inh inhalation Q4-6H PRN 02/23/23 breath activated powder inhaler shortness of breath or wheezing #1 ea benzonatate 100 mg capsule 100 mg PO BID PRN cough #20 caps 02/23/23 levothyroxine 112 mcg tablet 112 mcg PO DAILY #30 tabs 10/29/24 (Synthroid) naproxen 500 mg tablet (Naprosyn) 500 mg PO BID PRN pain #10 tabs 12/14/24 sumatriptan succinate 50 mg tablet See Rx Instructions PO .COMPLEX #7 12/14/24 tabs Allergies Allergy/AdvReac Type Severity Reaction Status Date / Time diphenhydramine (From Allergy Intermediate SEVERE Verified 12/13/24 23:21 BENADRYL) LETHARGY oxycodone (From Percocet) AdvReac Anxiety Verified 12/13/24 23:21 [facility] Past Medical History Medical History Panic attacks Asthma Depression Vitamin D deficiency Hypothyroidism Thyroid activity decreased Surgical History Hx of cervical polypectomy Hx of lithotripsy Hx of gastric bypass Family History Family History Father Leukemia Cancer Mother Diabetes mellitus Hypertension Social History Social History Household Members: Spouse Housing: Apartment Unable to assess alcohol history related to: Unknown Alcohol intake: former Comment: medicated with ketorolac and po tylenol Patient Tobacco Use Status: Never used Tobacco Smoked in Last 30 Days: No Use of substances other than those prescribed or required for medical reasons: No Advance Directives: No Advance Directives Information Provided: Yes Do you have a plan to hurt others: No Plan Patient : No Current occupational status: unemployed Sexual orientation: Straight/Heterosexual Gender identity: Female Physical Exam Exam: Exam: GENERAL: Well appearing. No apparent distress. Alert. HEAD/NECK: Normal to inspection. Neck supple. No cervical lymphadenopathy. EYES: Normal to inspection. Sclera non-icteric. ENMT: External nose normal. RESPIRATORY: Respiratory effort normal. Lungs clear to auscultation bilaterally. CARDIOVASCULAR: Regular rate. Normal rhythm. No murmur. No rubs. GI: Soft, non-tender, non-distended. No rebound or guarding. No masses palpable. No hepatosplenomegaly. SKIN: No jaundice. NEUROLOGICAL: Alert. PSYCHIATRIC: Alert. Appearance appropriate for situation. Attitude cooperative. OTHER: Comprehensive Neuro exam: Face symmetric, tongue midline, strong symmetric eye closure, pupils symmetric and reactive to light, intact sensation to the face throughout, intact strong face deviation and shoulder shrug. Sensation intact to light touch throughout 5 out of 5 strength in bilateral upper extremities, 5 and 5 strength in lower extremities Vital Signs: Vital Signs: Last Vital Signs Temp 97.9 F 12/14/24 02:46 Pulse 67 12/14/24 02:46 Resp 16 12/14/24 02:46 BP 107/56 L 12/14/24 02:46 Pulse Ox 97 12/14/24 02:46 O2 Del Method Room Air 12/14/24 02:46 BMI result Body Mass Index 26.9 Course Reevaluation(s) Reevaluation #1: Dr. Orr: The patient was signed out to me by the previous emergency physician. The patient was here for a headache, presumably a migraine. The patient was treated with ketorolac, metoclopramide, magnesium, and dexamethasone (the patient apparently has an exaggerated reaction to diphenhydramine). When I 1st went to see the patient she was feeling better. Her headache had come down to a 5/10. I thought she looked entirely well, however she was concerned that she had some residual headache so she was therefore given additional medication with a dose of IV acetaminophen. I re-evaluated her sometime after she had received the IV acetaminophen. At that point her headache had entirely resolved and she was comfortable going home. Her discharge instructions include prescriptions for naproxen and sumatriptan. Time: 02:27 Medications Administered Discontinued Medications Generic Name Dose Route Start Last Admin Trade Name Noe PRN Reason Stop Dose Admin Al Hydroxide/Mg Hydroxide 30 ml 12/14/24 00:17 12/14/24 00:25 Magnesium Hydrox/Alum Hydrox 30 Ml Oral.Susp PO 12/14/24 00:18 30 ml ONCE ONE Administration Dexamethasone Sodium Phosphate 10 mg 12/13/24 23:35 12/14/24 00:21 Dexamethasone Sod Phosphate 10 Mg/Ml Vial IVPUSH 12/13/24 23:36 10 mg ONCE ONE Administration Famotidine 20 mg 12/14/24 00:17 12/14/24 00:25 Famotidine 20 Mg Tablet PO 12/14/24 00:18 20 mg ONCE ONE Administration Sodium Chloride 1,000 mls @ 999 mls/hr 12/13/24 23:45 12/14/24 00:20 Ns IV 12/14/24 00:45 999 mls/hr .Q1H1M MIGUELANGEL Administration Acetaminophen 1,000 mg in 100 mls @ 400 mls/hr 12/14/24 01:14 12/14/24 01:52 Ofirmev IV 12/14/24 01:28 400 mls/hr ONCE ONE Administration Ketorolac Tromethamine 15 mg 12/13/24 23:35 12/14/24 00:21 Ketorolac Tromethamine 15 Mg/Ml Vial IVPUSH 12/13/24 23:36 15 mg ONCE ONE Administration Metoclopramide HCl 10 mg 12/13/24 23:35 12/14/24 00:21 Metoclopramide Hcl 10 Mg/2 Ml Vial IVPUSH 12/13/24 23:36 10 mg ONCE ONE Administration Medical Decision Making Medical Decision Making MDM Narrative: Medical Decision Making: [age] female with history of anxiety/panic disorder self-described migraine headaches for about 4 years now. She has never seen a specialist she has had a negative brain CT per her description. She reports about 2-3 days of bifrontal and bitemporal headache occasionally throbbing no focal deficits no vision changes no ataxia. She has been nauseous mildly photophobic. No fever or neck stiffness. No head strike no tick bites she looks quite well. She has been taking butalbital caffeine product and switch to 800 mg ibuprofen on and off with Tylenol today this was not helping as it usually does. She is not ill or toxic she is not meningitic she has no fever. We will attempt IV fluid and multimodal analgesic cocktail for presumed migrainous headache. No exogenous hormones or risk for hypercoagulability based on the history doubt dural thrombus, doubt subarachnoid hemorrhage given the character Preliminary Favored Differential Diagnosis: Migraine, tension, stress, dehydration among additional considered etiologies Testing Interpreted Independently: ?See below for details Radiology or Lab testing Results Reviewed: ?See below for details Consults: ?See below for details Independent Historians/External Chart Reviews: ?See below for details Social Determinants of Health Impacting MDM/Planning: ?See below for details Discharge Plan Discharge Clinical Impression: Migraine Patient Disposition: Home, Self-Care Instructions: Migraine Headache (ED) Additional Instructions: DISCHARGE DIAGNOSES: Headache possibly migraine HISTORY OF PRESENTATION: ?Headache in the frontal forehead and temples EMERGENCY DEPARTMENT COURSE,TESTS, TREATMENTS: While in the ED today you had a few different medications by IV and by mouth: Ketorolac, dexamethasone, metoclopramide, IV normal saline, Maalox and famotidine by mouth DISCHARGE MEDICATIONS: As needed naproxen and sumatriptan for migraine FOLLOW-UP: ?Call your primary or general physician soon as possible to discuss your symptoms, your ED visit and to discuss follow up plans Call your primary doctor you can also try to call our Neurology Clinic for follow up specifically for headache/migraine INSTRUCTIONS ?& RETURN PRECAUTIONS: If any symptoms change first call your primary physician, if it is after-hours your primary doctors office should have a provider continuous improvement analyst you can speak with. If the symptoms are severe or very concerning to you then call 911 or return to the ED. [07] Lance Cruz MD Emergency Physician [facility] Prescriptions: New sumatriptan succinate 50 mg tablet See Rx Instructions .ROUTE .COMPLEX Qty: 7 0RF Rx Instructions: take 1 tab at onset of headache; if no relief may repeat 1 tab after at least 2 hrs; max = 4 tabs/24 hr naproxen [Naprosyn] 500 mg tablet 500 mg PO BID PRN (Reason: pain) Qty: 10 0RF No Action levothyroxine [Synthroid] 112 mcg tablet 112 mcg PO DAILY Qty: 30 5RF albuterol sulfate 90 mcg/actuation HFA aerosol inhaler 2 puff inhalation Q4-6H PRN (Reason: shortness of breath or wheezing) Qty: 6.7 0RF xfhosozaxl-flujyomrlsbpt-rpxq 50-325-40 mg tablet 1 tab PO Q6H PRN (Reason: pain (scale score 4-6)) Qty: 10 0RF albuterol sulfate 90 mcg/actuation aerosol powdr breath activated 2 inh inhalation Q4-6H PRN (Reason: shortness of breath or wheezing) Qty: 1 0RF benzonatate 100 mg capsule 100 mg PO BID PRN (Reason: cough) Qty: 20 0RF lorazepam 0.5 mg tablet 0.5 mg PO BEDTIME PRN (Reason: Anxiety) omeprazole 20 mg capsule,delayed release(DR/EC) 20 mg PO DAILY valacyclovir 500 mg tablet 500 mg PO DAILY baclofen 10 mg tablet 10 mg PO TID diclofenac sodium 1 % gel topical Referrals: [facility] [Provider Group, Neurology] Adriana Palencia MD [Primary Care Provider, Internal Medicine] Interventions: ED Discharge Assessment Last Done: 12/14/24 02:46 Discharge Date/Time: 12/14/24 02:55 Print Language: Greek
--- OUTSIDE RECORDS SUMMARY | 2024-12-13 23:52 | XMS_ITS | Clinical Summary ---
Author Organization [employer] Address [address] [place] [address] 7t [place] [address] Care Team Providers Care Utility Specialist Name Role Phone Adriana Palencia MD [...] hours. Active ergocalciferol (Vitamin D-2) 1.25 MG (06289 UT) capsule take 1 capsule by oral [...] every 6 (six) hours. Active Lactobacillus-Inu kristen ([facility] [employer] [facility]) capsule take 1 capsule 2 times [...] 8 (eight) hours. 75 mL 2 Active Blood Pressure Monitoring (Blood Pressure Cuff) [...] EVERY DAY 90 tablet 1 025 Active cyanocobalamin ([facility] Vitamin B-12) 1000 MCG tabletIndications :Vitamin B12 deficiency Take 1 tablet (1,000 mcg) by mouth Once per day. 30 tablet 3 024 2024 valACYclovir (Valtrex) 500 MG tablet TAKE 1 TABLET BY MOUTH EVERY DAY 90 tablet 1 025 2024 Discontinued baclofen (Lioresal) 10 MG tabletIndications :Muscle spasm,Pain TOME 1 TABLETA POR VIA ORAL DENNYS VECES AL KENAN CUANDO SEA NECESARIO 270 tablet 025 2024 Discontinued Active Problems Problem [...] life style modifications, diet and referral to entry specialist. Recommended to decrease soda and sugary [...] Encounters Date Type Department Care Team Description 12/09/2024 3:30 PM EDT Office Visit [facility] [address] [place] [phone] Manju Jennings NP Gastroesophageal reflux disease, unspecified whether esophagitis present (Primary Dx) 12/09/2024 Travel 12/07/2024 Refill [facility] [address] [place] [phone] Adriana Palencia MD 12/06/2024 Telephone [facility] [address] [place] [address] Bree Ag MD No Show 12/05/2024 Telephone [facility] [address] [place] [address] Adriana Palencia MD Chart Prep 12/03/2024 Travel 12/02/2024 Telephone [facility] [address] [place] [address] Adriana Palencia MD Nurse Triage 11/25/2024 11:00 AM EDT Office Visit [facility] [address] [place] [address] 19305 Harsha Rees MD Gastroesophageal reflux disease, unspecified whether esophagitis present (Primary Dx) 11/15/2024 Telephone [facility] [address] [place] [phone] Adriana Palencia MD Nurse Triage 11/14/2024 Refill [facility] [address] [place] [phone] Adriana Palencia MD Muscle spasm; Pain 11/12/2024 Refill [facility] [address] [place] [address] Adriana Palencia MD Fibromyalgia 11/07/2024 Refill [facility] [address] [place] [address] Adriana Palecnia MD Mild intermittent asthma, unspecified whether complicated 10/26/2024 Orders Only [facility] External Provider, [facility] 10/25/2024 Orders Only GENERIC EXTERNAL DATA DEPARTMENT Provider, Generic External Data 10/09/2024 Refill [facility] [address] [place] [address] Adriana Palencia MD Fibromyalgia 10/08/2024 Orders Only [facility] External Provider, [facility] 10/04/2024 Telephone [facility] [address] [place] [address] Adriana Palencia MD Lab Orders (/) 09/12/2024 Refill [facility] [address] [place] [address] Adriana Palencia MD Acquired hypothyroidism from Last 3 Months Immunizations Immunization Administration [...] Mass Index 26.97 12/09/2024 3:35 PM EDT Plan of Treatment Health Maintenance Due Date Last Done Comments CT Colonography 1970 Colonoscopy 1970 Colorectal Cancer Screening 1970 FIT DNA/Cologuard 1970 FIT 1970 FOBT 1970 Sigmoidoscopy 1970 Zoster Vaccines (2 of 2) 04/03/2023 02/06/2023 COVID-19 Vaccine (3 - season) 2023 08/04/2020, 07/07/2020 Influenza Vaccine (#1) 2024 02/06/2023 Mammogram 02/21/2025 02/22/2024, 05/2022, 08/27/2020, Additional history exists Alcohol/Substance Use Screening 03/29/2025 03/29/2024 Disability Screening 12/03/2025 12/03/2024 Depression Screening 12/09/2025 12/09/2024, 12/10/19 SDOH Screening 12/09/2025 12/09/2024 Tobacco Screening 12/09/2025 12/09/2024 Cervical Cancer Screening 07/02/2026 HPV/Cotest 07/02/2026 07/02/2021, 06/15, 07/02/2021 Pap Smear 07/02/2026 07/02/2021 Lipid Panel 12/12/2028 12/13/2023, 12/2022, 01/12/2021 DTaP/Tdap/Td Vaccines (3 - Td [...] PM EDT Narrative 10/29/2024 8:26 PM EDT [address] [address] Magnetic Resonance Report Signed Patient: Sudha Dean MR#: [id number] : 1970 Acct:[id number] Age/Sex: 54 / F ADM Date: 10/26/24 Loc: HO.MRI Attending Dr: Kane Downey MD Ordering Physician: Kane Downey MD Date of Service: 10/26/24 Procedure(s): MR shoulder RT wo con Accession Number(s): [id number] cc: Adriana Palencia MD; Kane Downey MD CLINICAL HISTORY: M2 - Unspecified internal derangement of right knee [...] in OV> 10/29/242024 DD/ 23 TD/TT: 10/29/242023 Procedure Analyst: Procedure Note Donotuseinterpreter, Image - 10/29/2024 [place] [address] Magnetic Resonance Report Signed Patient: Sudha Dean [facility]#: [id number] : 1970Acct:[id number] Age/Sex: 54 / FADM Date: 10/26/24 Loc: HO.MRI Attending Dr: Kane Downey MD Ordering Physician: Kane Downey MD Date of Service: 10/26/24 Procedure(s): MR shoulder RT wo con Accession Number(s): [id number] cc: Adriana Palencia MD; Kane Downey MD [...] in OV> 10/29/242024 DD/ 23 TD/TT: 10/29/242023 Procedure Analyst: [facility] External Provider IMG MRI PROCEDURES Final Result * (ABNORMAL) TSH (10/25/2024 10:54 AM EDT) Thyroid Stimulating Hormone 0.06(L) 0.32 - 4.0 uIU/mL [facility] Comment:TSH 3rd Generation ( [facility]) 10/25/2024 10:5 4 AM EDT 10/25/2024 10:54 AM EDT Generic External Data Provider LAB BLOOD ORDERAB LES Final Result [facility] [address] [place] [phone] * T4, Free (10/25/2024 10:54 AM EDT) Free T4 (Free Thyroxine) 1.17 0.71 - 1.85 ng/dL [facility] 10/25/2024 10:5 4 AM EDT 10/25/2024 10:54 AM EDT us Generic External Data Provider LAB BLOOD ORDERAB LES Final Result [facility] [address] [place] [phone] * MR Humerus w/o Contrast Right (10/08/2024 1:30 PM EDT) Anatomical Region Laterality Modality Upper Extremities, Humerus Right Magne tic Resonance 10/08/2024 1:30 PM EDT Narrative 10/08/2024 2:25 PM EDT [address] [address] Magnetic Resonance Report Signed Patient: Sudha Dean MR#: [id number] : 1970 Acct:[id number] Age/Sex: 54 / F ADM Date: 10/08/24 Loc: HO.MRI Attending Dr: Kane Downey MD Ordering Physician: Kane Downey MD Date of Service: 10/08/24 Procedure(s): MR humerus RT wo con Accession Number(s): [id number] cc: Adriana Palencia MD; Kane Downey MD [...] 10/08/24 1422 DD/ 1330 TD/TT: 10/08/24 1400 Procedure Analyst: Procedure Note Donotuseinterpreter, Image - 10/08/[address] [address] Magnetic Resonance Report Signed Patient: Sudha Dean [facility]#: [id number] : 1970Acct:[id number] Age/Sex: 54 / FADM Date: 10/08/24 Loc: HO.MRI Attending Dr: Kane Downey MD Ordering Physician: Kane Downey MD Date of Service: 10/08/24 Procedure(s): MR humerus RT wo con Accession Number(s): [id number] cc: Adriana Palencia MD; Kane Downey MD [...] 10/08/24 1422 DD/ 1330 TD/TT: 10/08/24 1400 Procedure Analyst: [facility] External Provider IMG MRI PROCEDURES Final Result * BI Mammogram Screening Tomosynthesis Bilateral (02/22/2024 8:40 AM EST) Anatomical Region Laterality Modality Breast Bilateral Mammography 02/22/2024 8:40 AM EST Narrative 03/01/2024 4:10 PM EST [address] [place] [address] Mammography Report Signed Patient: Sudha Dean MR#: [id number] : 1970 Acct:[id number] Age/Sex: 54 / F ADM Date: 02/22/24 Loc: HO.MAMMO Attending Dr: Adriana Sanches MD Ordering Physician: Adriana Palencia MD Results: 1Negative Date of Service: 02/22/24 Follow Up: 1 Year From Orig ina Mammogram Procedure(s): MM tomosynthesis screening BI Accession Number(s): [id number] cc: Adriana Palencia MD EXAMINATION: MM SCREENING [...] 03/01/24 1607 DD/ 0840 TD/TT: 02/22/24 0903 Procedure Analyst: Procedure Note Donotuseinterpreter, Image - 03/01/2024 [facility] [address] [place], [place] [address] Mammography Report Signed Patient: Sudha Dean [facility]#: [id number] : 1970Acct:[id number] Age/Sex: 54 / FADM Date: 02/22/24 Loc: HO.MAMMO Attending Dr: Adriana Sanches MD Ordering Physician: Adriaan Palencia MDResults: 1Negative Date of Service: 02/22/24Follow Up: 1 Year From Orig inal Mammogram Procedure(s): MM tomosynthesis screening BI Accession Number(s): [id number] cc: Adriana Palencia MD EXAMINATION: MM SCREENING [...] Rachana Pablo DO 03/01/2024 04:07 PM EST RP Dictated By: Rachana Pablo DO Signed By: <Electronically signed by Rachana Pablo DO in OV> 03/01/24 1607 DD/ 0840 TD/TT: 02/22/24 0903 Procedure Analyst: us Adriana Sanches MD IMG BI PROCEDURES Fin al Result * (ABNORMAL) Lipid Panel with Reflex to Direct LDL (12/13/2023 12:18 PM EDT) Triglycerides 52 <150 mg/dL [facility] Comment:Desirable Triglyceri de: less than 150 mg/dLBorderline High Triglyceride 150-199 mg/dLHigh Triglyceride: 200-499 mg/dLVery High Triglyceride: greater than or equal to 5OO mg/dL Cholesterol 187 <200 mg/dL [facility] Comment:Desirable Cholestero l: less than 200 mg/dLBorderline High Cholesterol: 200-239 mg/dLHigh Cholesterol: greater than 239 mg/dL LDL Cholesterol Calculated 109(H) <100 mg/dL [facility] Comment:Desirable LDL: less than 100 mg/dLNear Optimal/Above Optimal LDL: 110- 129 mg/dLBorderline High LDL: 130-159 mg/dLHigh LDL: 160-189 mg/dLVery High LDL: greater than or equal to 190 mg/dL HDL Cholesterol 68 >40 mg/dL [facility] Comment:Desirable HDL: great er than 40 mg/dL Note: This HDL assay may give artificially low results in patients with liver disease. Blood 12/13/2023 12:1 8 PM EDT 12/13/2023 1:25 PM EDT us Adriana Sanches MD LAB BLOOD ORDERABLES Final Result [facility] [address] [place] [phone] * Hepatitis C Viral RNA, Quantitative, Real-Time PCR (12/13/2023 12:18 PM EDT) Hepatitis C Viral Load <15 NOT DETECTED NOT DETECTED IU/mL [facility] HCV Log PCR <1.18 NOT DETECTED NOT DETECTED Log IU/mL [facility] Comment:For additional infor gera, please refer tohttp://education.[employer]/faq/KHL12s4(This link is being provided for informational/educational purposes only.)THIS TEST WAS PERFORMED AT:[facility] [place] [phone] KENNEDY MD Blood 12/13/2023 12:1 8 PM EDT 12/13/2023 1:25 PM EDT us Adriana Sanches MD LAB BLOOD ORDERABLES Final Result [facility] [address] [place] [phone] * HIV-1/2 Antigen and Antibodies, Fourth Generation, with Reflexes (12/13/2023 12:18 PM EDT) Pathologist [facility] HIV AB/AG Nonreactive Nonreactive [facility] Comment:HIV-1 p24 Ag and/or HIV-1/HIV-2 Ab not detected.A test result that is nonreactive does not exclude thepossibility of exposure to or infection with HIV-1 and/orHIV-2. Nonreactive results in this assay for individualswith prior exposure to HIV-1 and/or HIV-2 may be due toantigen and antibody levels that are below the limit ofdetection of this assay.The [employer] HIV Ag/Ab Combo assay result andsupplemental assay results should be interpreted inconjunction with the patient's clinical presentation,history and other laboratory results. If the results areinconsistent with clinical evidence, additional testing issuggested to confirm the result. Blood Venous blood specimen / Unknown 12/13/2023 12:18 PM EDT 12/13/2023 1:15 PM EDT us Adriana Sanches MD LAB BLOOD ORDERABLES Final Result [facility] [address] [place] [phone] [phone] * Hm Pap Smear (07/02/2021) Pap Negative for intraephithelial lesion or malignancy Negative for intraephithelial lesion or malignancy, Other HPV Undetected Historical Provider HEALTH MAINTENANCE Final Result from Last 3 Months or Most Recently Relevant to Health Maintenance Insurance [facility] STANDARD [facility] ONE CARE < 65 Care Teams Utility Specialist Relationship Specialty Start Date End Date Adriana Palencia MD [address] [place] [address] PCP - General Family Medicine 06/01/18
--- OUTSIDE RECORDS SUMMARY | 2024-12-13 23:52 | XMS_ITS | Encounter Summary ---
Author Organization [employer] Address [address] [facility] 7 [place] [address] Care Team Providers Care Brick Machine Operator Name Role Phone Adriana Palencia MD Primary Care Provide r Encounter Details Date Type Department Care Team ([facility] st Contact Info) Description 05/17/2022 Telephone [facility] [address] [place] [address] Rosemary Espana RN [address] [place] [address] Social History Tobacco Use Types Packs/Day Years [...] EST T triaged today, [place] [facility] [place] for anxiety issues, chest pain, and ear buzzing.. please obtain ER records. documented in this encounter Plan of Treatment Not on file documented as of this encounter Visit Diagnoses Not on filedocumented in this encounter Care Teams Brick Machine Operator Relationship Specialty Start Date End Date Adriana Palencia MD [address] [place] [address] PCP - General Family Medicine 06/01/18 documented as of this encounter
--- OUTSIDE RECORDS SUMMARY | 2024-12-13 23:52 | XMS_ITS | Encounter Summary ---
Author Organization [employer] Address [address] [place] [address] Care Team Providers Care Wild Life Photographer Name Role Phone Adriana Palencia MD Primary Care Provide r Reason for Visit * Reason Comments Med Refill Encounter Details Date Type Department Care Team ([facility] st Contact Info) Description 03/10/2024 Refill [facility] [address] [place] [address] Adriana Palencia MD [address] [place] [address] Vitamin B12 deficiency Social History Tobacco Use [...] documented as of this encounter Care Teams Wild Life Photographer Relationship Specialty Start Date End Date Adriana Palencia MD [address] [place] [address] PCP - General Family Medicine 06/01/18 documented as of this encounter
--- OUTSIDE RECORDS SUMMARY | 2024-12-13 23:52 | XMS_ITS | Encounter Summary ---
Author Organization [employer] Address [address] [place] [address] 7t [place] [address] Care Team Providers Care Management Retail Intern Name Role Phone Adriana Palencia MD Primary Care Provide r Encounter Details Date Type Department Care Team (Late st Contact Info) Description 03/17/2022 Abstract [facility] [address] [place] [address] ProviderGurvinder MD Social History Tobacco Use Types [...] on filedocumented in this encounter Care Teams Management Retail Intern Relationship Specialty Start Date End Date Adriana Palencia MD [address] [place] [address] PCP - General Family Medicine 06/01/18 documented as of this encounter
--- OUTSIDE RECORDS SUMMARY | 2024-12-13 23:53 | XMS_ITS | Encounter Summary ---
Author Organization [employer] Address [address] [place] [address] 7 [place] [address] Care Team Providers Care Division Operations Specialist Name Role Phone Adriana Palencia MD Primary Care Provide r Reason for Visit * Reason Comments Med Refill Encounter Details Date Type Department Care Team ([facility] st Contact Info) Description 12/02/2022 Refill [facility] [address] [place] [address] Bree Ag MD [address] [place] [address] Generalized anxiety disorder Social History Tobacco Use [...] documented as of this encounter Care Teams Division Operations Specialist Relationship Specialty Start Date End Date Adriana Palencia MD [address] [place] [address] PCP - General Family Medicine 06/01/18 documented as of this encounter
--- OUTSIDE RECORDS SUMMARY | 2024-12-13 23:53 | XMS_ITS | Encounter Summary ---
Author Organization [employer] Address [address] [facility] [place] [address] Care Team Providers Care Technical Business Analyst Name Role Phone Adriana Palencia MD Primary Care Provide r Encounter Details Date Type Department Care Team (Latest Contact Info) Description 12/09/2024 Travel Social History Tobacco Use Types Packs/Day [...] housing situation today? I have jasvirole amado 12/09/[address] you [...] AM EDT documented as of this encounter Functional Status * Over the [...] Sudha Mitchell MA Feeling afraid as if somethi ng awful might happen 3 12/09/2024 3:39 PM EDT Sudha Mitchell MA PEDRO PABLO-7 Total Score 16 12/09/2024 3:39 PM EDT Sudha Mitchell MA documented as of this encounter Plan of Treatment Not on file documented as of this encounter Visit Diagnoses Not on filedocumented in this encounter Additional Health Concerns Assessment Noted Time PHQ-9 Depression Total Score: 8 12/10/19 25 3:38 PM EDT documented as of this encounter Care Teams Technical Business Analyst Relationship Specialty Start Date End Date Adriana Palencia MD [address] [place] [address] PCP - General Family Medicine 06/01/18 documented as of this encounter
--- OUTSIDE RECORDS SUMMARY | 2024-12-13 23:53 | XMS_ITS | Encounter Summary ---
Author Organization [employer] Address [address] [place] [address] 7t [place] [address] Care Team Providers Care Community Relations Rep Name Role Phone Adriana Palencia MD Primary Care Provide r Encounter Details Date Type Department Care Team (Late st Contact Info) Description 03/17/2022 Abstract [facility] [address] [place] [address] ProviderGurvinder MD Social History Tobacco Use Types [...] on filedocumented in this encounter Care Teams Community Relations Rep Relationship Specialty Start Date End Date Adriana Palencia MD [address] [place] [address] PCP - General Family Medicine 06/01/18 documented as of this encounter
--- OUTSIDE RECORDS SUMMARY | 2024-12-13 23:54 | XMS_ITS | Encounter Summary ---
Author Organization [employer] Address [address] [place] [address] 7t [place] [address] Care Team Providers Care Safe And Vault Mechanic Name Role Phone Adriana Palencia MD Primary Care Provide r Reason for Visit * Reason Comments Med Refill Encounter Details Date Type Department Care Team (Late st Contact Info) Description 11/24/2022 Refill [facility] [address] [place] [address] Lilia Mcgregor FNP Migraine without aura and without status migrainosus, [...] documented as of this encounter Care Teams Safe And Vault Mechanic Relationship Specialty Start Date End Date Adriana Palencia MD [address] [place] [address] PCP - General Family Medicine 06/01/18 documented as of this encounter
--- OUTSIDE RECORDS SUMMARY | 2024-12-13 23:55 | XMS_ITS | Encounter Summary ---
Author Organization [employer] Address [address] [place] [address] 7 [place] [address] Care Team Providers Care Lozenge Dough Mixer Name Role Phone Adriana Palencia MD Primary Care Provide r Reason for Visit * Reason Comments Med Refill Encounter Details Date Type Department Care Team ([facility] st Contact Info) Description 10/31/2022 Refill [facility] [address] [place] [address] Adriana Palencia MD [address] [place] [address] Social History Tobacco Use Types Packs/Day Years [...] documented as of this encounter Care Teams Lozenge Dough Mixer Relationship Specialty Start Date End Date Adriana Palencia MD [address] [place] [address] PCP - General Family Medicine 06/01/18 documented as of this encounter
--- OUTSIDE RECORDS SUMMARY | 2024-12-13 23:55 | XMS_ITS | Encounter Summary ---
Author Organization [employer] Address [address] [place] [address] 7 [place] [address] Care Team Providers Care Resident Care Manager Name Role Phone Adriana Palencia MD Primary Care Provide r Reason for Visit * Reason Comments Med Refill Encounter Details Date Type Department Care Team (Late st Contact Info) Description 11/02/2022 Refill [facility] [address] [place] [address] Lilia Mcgregor FNP Social History Tobacco Use [...] documented as of this encounter Care Teams Resident Care Manager Relationship Specialty Start Date End Date Adriana Palencia MD [address] [place] [address] PCP - General Family Medicine 06/01/18 documented as of this encounter
--- OUTSIDE RECORDS SUMMARY | 2024-12-13 23:56 | XMS_ITS | Encounter Summary ---
Author Organization [employer] Address [address] [place] [address] 7 [place] [address] Care Team Providers Care Digital Project Manager Name Role Phone Adriana Palencia MD Primary Care Provide r Reason for Visit * Reason Comments Med Refill Encounter Details Date Type Department Care Team ([facility] st Contact Info) Description 09/25/2022 Refill [facility] [address] [place] [address] Adriana Palencia MD [address] [place] [address] Fibromyalgia Social History Tobacco Use Types Packs/Day [...] documented as of this encounter Care Teams Digital Project Manager Relationship Specialty Start Date End Date Adriana Palencia MD [address] [place] [address] PCP - General Family Medicine 06/01/18 documented as of this encounter
--- OUTSIDE RECORDS SUMMARY | 2024-12-13 23:56 | XMS_ITS | Encounter Summary ---
Author Organization [employer] Address [address] [facility] 7 [place] [address] Care Team Providers Care Cafe Associate Name Role Phone Adriana Palencia MD Primary Care Provide r Reason for Visit * Reason Onset Date Comments Med Refill 05/21/2024 Encounter Details Date Type Department Care Team ([facility] st Contact Info) Description 05/21/2024 Telephone [facility] [address] [place] [address] Adriana Palencia MD [address] [place] [address] Med Refill Social History Tobacco Use Types [...] MG/0.5ML solution auto-injector To be sent to: [facility]/pharmacy #[id number] [place], [place] - [address] [place] [address] documented in this encounter Plan of Treatment Not on file documented as of this encounter Visit Diagnoses Not on filedocumented in this encounter Additional Health Concerns Assessment Noted Time PHQ-9 Depression Total Score: 15 024 9:44 AM EST documented as of this encounter Care Teams Cafe Associate Relationship Specialty Start Date End Date Adriana Palencia MD [address] [place] [address] PCP - General Family Medicine 06/01/18 documented as of this encounter
--- OUTSIDE RECORDS SUMMARY | 2024-12-13 23:56 | XMS_ITS | Clinical Summary ---
Author Organization [facility] Address [address] [place] [address] Phone Care Team Providers Care Veneer Sawyer Name Role Phone Maribel Garcia XANDER Primary Care Provider [phone] Allergies No known active allergies Medications No [...] patient's age to complete this topic Insurance [place] [address] MEDICARE Member Subscriber Plan / Payer (Ef fective 2024-Present) Name:Sudha Dean Relation to Subscriber:Self Name:Sudha Dean Payer ID:[id number] Group ID:Not on file Type:Not on file Address: [address] [place] [place] [id number] Care Teams Veneer Sawyer Relationship Specialty Start Date End Date Maribel Garcia FNP PCP - General Internal Medicine 04/11/13
--- OUTSIDE RECORDS SUMMARY | 2024-12-13 23:57 | XMS_ITS | Encounter Summary ---
Author Organization [employer] Address [address] [facility] 7t [place] [address] Care Team Providers Care Insurance Coordinator Name Role Phone Adriana Palencia MD Primary Care Provide r Encounter Details Date Type Department Care Team ([facility] st Contact Info) Description 01/18/2023 Abstract [facility] MEDICINE [address] [place] [address] Elaine Raman Social History Tobacco Use Types Packs/Day [...] documented as of this encounter Care Teams Insurance Coordinator Relationship Specialty Start Date End Date Adriana Palencia MD [address] [place] [address] PCP - General Family Medicine 06/01/18 documented as of this encounter
--- OUTSIDE RECORDS SUMMARY | 2024-12-13 23:57 | XMS_ITS | Encounter Summary ---
Author Organization [employer] Address [address] [place] [address] 7 [place] [address] Care Team Providers Care Can Labeler Name Role Phone Adriana Palencia MD Primary Care Provide r Reason for Visit * Reason Comments Med Refill Encounter Details Date Type Department Care Team ([facility] st Contact Info) Description 01/10/2023 Refill [facility] MEDICINE [address] [place] [address] Adriana Palencia MD 230 [place] [address] Social History Tobacco Use Types Packs/Day Years [...] documented as of this encounter Care Teams Can Labeler Relationship Specialty Start Date End Date Adriana Palencia MD [address] [place] [address] PCP - General Family Medicine 06/01/18 documented as of this encounter
--- OUTSIDE RECORDS SUMMARY | 2024-12-13 23:57 | XMS_ITS | Encounter Summary ---
Author Organization [employer] Address [address] [facility] [address] 7t [place] [address] Care Team Providers Care Wardrobe Specialty Worker Name Role Phone Adriana Palencia MD Primary Care Provide r Encounter Details Date Type Department Care Team ([facility] st Contact Info) Description 03/14/2023 Abstract [facility] MEDICINE [address] [place] [address] Eliane Raman Social History Tobacco Use Types [...] documented as of this encounter Care Teams Wardrobe Specialty Worker Relationship Specialty Start Date End Date Adriana Palencia MD [address] [place] [address] PCP - General Family Medicine 06/01/18 documented as of this encounter
--- OUTSIDE RECORDS SUMMARY | 2024-12-13 23:57 | XMS_ITS | Encounter Summary ---
Author Organization [employer] Address [address] [facility] 7 [place] [address] Care Team Providers Care Rate And Cost Analyst Name Role Phone Adriana Palencia MD Primary Care Provide r Reason for Visit * Reason Comments Med Refill Encounter Details Date Type Department Care Team ([facility] st Contact Info) Description 12/07/2024 Refill [facility] MEDICINE [address] [place] [address] Adriana Palencia MD [address] [place] [address] Social History Tobacco Use Types Packs/Day Years [...] documented as of this encounter Care Teams Rate And Cost Analyst Relationship Specialty Start Date End Date Adriana Palencia MD [address] [place] [address] PCP - General Family Medicine 06/01/18 documented as of this encounter
--- OUTSIDE RECORDS SUMMARY | 2024-12-13 23:58 | XMS_ITS | Encounter Summary ---
Author Organization [employer] Address [address] [facility] 7 [place] [address] Care Team Providers Care Hooker Operator Name Role Phone Adriana Palencia MD Primary Care Provide r Reason for Visit * Reason Comments Med Refill Encounter Details Date Type Department Care Team ([facility] st Contact Info) Description 07/29/2024 Refill [facility] MEDICINE [address] [place] [address] Adriana Palencia MD [address] [place] [address] Class 1 obesity due to excess calories [...] documented as of this encounter Care Teams Hooker Operator Relationship Specialty Start Date End Date Adriana Palencia MD 230 [place] [address] PCP - General Family Medicine 06/01/18 documented as of this encounter
--- OUTSIDE RECORDS SUMMARY | 2024-12-13 23:58 | XMS_ITS | Clinical Summary ---
Author Organization [employer] [facility] Address [address] [place] [address] Care Team Providers Care Compressor Station Engineer Name Role Phone Unavailable Primary Care Provider [...]
--- OUTSIDE RECORDS SUMMARY | 2024-12-13 23:58 | XMS_ITS | Encounter Summary ---
Author Organization [employer] Address [address] [facility] 7 [place] [address] Care Team Providers Care Nitric Acid Concentrator Operator Name Role Phone Adriana Palencia MD Primary Care Provide r Reason for Visit * Reason Comments Med Refill Encounter Details Date Type Department Care Team ([facility] st Contact Info) Description 07/19/2024 Refill [facility] MEDICINE [address] [place] [address] Adriana Palencia MD [address] [place] [address] Class 1 obesity due to excess calories [...] documented as of this encounter Care Teams Nitric Acid Concentrator Operator Relationship Specialty Start Date End Date Adriana Palencia MD [address] [place] [address] PCP - General Family Medicine 06/01/18 documented as of this encounter
--- OUTSIDE RECORDS SUMMARY | 2024-12-13 23:59 | XMS_ITS | Encounter Summary ---
Author Organization [employer] Address [address] [facility] 7t [place] [address] Care Team Providers Care Distribution Warehouse Manager Name Role Phone Adriana Palencia MD Primary Care Provide r Reason for Visit * Reason Comments Med Refill Encounter Details Date Type Department Care Team ([facility] st Contact Info) Description 04/14/2023 Refill [facility] MEDICINE [address] [place] [address] Heather Wei MD [address] [place] [address] Gastroesophageal reflux disease without esophagitis Social History [...] documented as of this encounter Care Teams Distribution Warehouse Manager Relationship Specialty Start Date End Date Adriana Palencia MD [address] [place] [address] PCP - General Family Medicine 06/01/18 documented as of this encounter
--- OUTSIDE RECORDS SUMMARY | 2024-12-13 23:59 | XMS_ITS | Encounter Summary ---
Author Organization [facility] Address [address] [facility] [address] [place] [address] Phone Care Team Providers Care Terminologist Name Role Phone Unknown, Unknown Primary Care Provider Nikia pina Encounter Details Date Type Department Care Team (Latest Contact Info) Description 04/21/2017 Ancillary Orders [facility] [address] [place] [address] [place] [address] Hector Zamora DO [address] [place] [address] Palpitations; Chest pain, unspecified type; Syncope, unspecified [...] type documented in this encounter Care Teams Terminologist Relationship Specialty Start Date End Date Unknown, Unknown, MD PCP - General 04/21/17 documented as of this encounter Additional Source Comments The information contained in this document represents components of the legal health record. It is not the complete legal health record.[facility]
--- OUTSIDE RECORDS SUMMARY | 2024-12-13 23:59 | XMS_ITS | Clinical Summary ---
Author Organization [facility] Address [address] [place], [place] [id number] Phone Care Team Providers Care Fast Food Services Manager Name Role Phone Unknown, Unknown Primary Care [...] MEDICARE PART A & B Care Teams Fast Food Services Manager Relationship Specialty Start Date End Date Unknown, Unknown, PCP - General 04/21/17 Additional Source Comments The information contained in this document represents components of the legal health record. It is not the complete legal health record.[facility]
--- OUTSIDE RECORDS SUMMARY | 2024-12-13 23:59 | XMS_ITS | Encounter Summary ---
Author Organization [employer] Address [address] [facility] 7 [place] [address] Care Team Providers Care Double End Chucking Machine Operator Name Role Phone Adriana Palencia MD Primary Care Provide r Reason for Visit * Reason Onset Date Comments Letter Needed 04/18/2023 Encounter Details Date Type Department Care Team ([facility] st Contact Info) Description 04/18/2023 Telephone [facility] MEDICINE [address] [place] [address] Adriana Palencia MD [address] [place] [address] Letter Needed Social History Tobacco Use Types [...] causing herasthma attacks. Please contact pt @ [phone] Korean Speaker documented in this encounter Plan of Treatment Not on file documented as of this encounter Visit Diagnoses Not on filedocumented in this encounter Additional Health Concerns Assessment Noted Time PHQ-9 Depression Total Score: 14 023 3:05 PM EDT documented as of this encounter Care Teams Double End Chucking Machine Operator Relationship Specialty Start Date End Date Adriana Palencia MD [address] [place] [address] PCP - General Family Medicine 06/01/18 documented as of this encounter
--- OUTSIDE RECORDS SUMMARY | 2024-12-14 | XMS_ITS | Encounter Summary ---
Author Organization [employer] Address [address] [facility] 7t [place] [address] Care Team Providers Care Ladies Locker Room Attendant Name Role Phone Adriana Palencia MD Primary Care Provide r Reason for Visit * Reason Comments Med Refill Encounter Details Date Type Department Care Team ([facility] st Contact Info) Description 08/03/2024 Refill [facility] MEDICINE [address] [place] [address] Adriana Palencia MD [address] [place] [address] Class 1 obesity due to excess calories [...] documented as of this encounter Care Teams Ladies Locker Room Attendant Relationship Specialty Start Date End Date Adriana Palencia MD [address] [place] [address] PCP - General Family Medicine 06/01/18 documented as of this encounter
--- OUTSIDE RECORDS SUMMARY | 2024-12-14 | XMS_ITS | Encounter Summary ---
Author Organization [employer] Address [address] [facility] 7 [place] [address] Care Team Providers Care Link Fabric Machine Operator Name Role Phone Adriana Palencia MD Primary Care Provide r Reason for Visit * Reason Comments Med Refill Encounter Details Date Type Department Care Team ([facility] st Contact Info) Description 08/02/2024 Refill [facility] MEDICINE 230 [place] [address] Adriana Palencia MD [address] [place] [address] Class 1 obesity due to excess calories [...] documented as of this encounter Care Teams Link Fabric Machine Operator Relationship Specialty Start Date End Date Adriana Palencia MD [address] [place] [address] PCP - General Family Medicine 06/01/18 documented as of this encounter
--- OUTSIDE RECORDS SUMMARY | 2024-12-14 | XMS_ITS | Encounter Summary ---
Author Organization [employer] Address [address] [facility] 7t [place] [address] Care Team Providers Care Paper Mill Manager Name Role Phone Adriana Palencia MD Primary Care Provide r Reason for Visit * Reason Comments Med Change Request Encounter Details Date Type Department Care Team ([facility] st Contact Info) Description 08/06/2024 Refill [facility] MEDICINE 230 [place] [address] Adriana Palencia MD [address] [place] [address] Class 1 obesity due to excess calories [...] documented as of this encounter Care Teams Paper Mill Manager Relationship Specialty Start Date End Date Adriana Palencia MD [address] [place] [address] PCP - General Family Medicine 06/01/18 documented as of this encounter
--- OUTSIDE RECORDS SUMMARY | 2024-12-14 00:01 | XMS_ITS | Encounter Summary ---
Author Organization [employer] Address [address] [facility] 7t [place] [address] Care Team Providers Care Ecmo Specialist Name Role Phone Adriana Palencia MD Primary Care Provide r Reason for Visit * Reason Comments Med Change Request Encounter Details Date Type Department Care Team ([facility] st Contact Info) Description 09/10/[address] [facility] MEDICINE 230 [place] [address] Adriana Palencia MD [address] [place] [address] Class 1 obesity due to excess calories [...] documented as of this encounter Care Teams Ecmo Specialist Relationship Specialty Start Date End Date Adriana Palencia MD [address] [place] [address] PCP - General Family Medicine 06/01/18 documented as of this encounter
--- OUTSIDE RECORDS SUMMARY | 2024-12-14 00:01 | XMS_ITS | Encounter Summary ---
Author Organization [employer] Address [address] [facility] 7t [place] [address] Care Team Providers Care Out Of School Hours Care Worker Name Role Phone Adriana Palencia MD Primary Care Provide r Reason for Visit * Reason Comments Med Refill Encounter Details Date Type Department Care Team ([facility] st Contact Info) Description 09/07/2024 Refill [facility] MEDICINE [address] [place] [address] Adriana Palencia MD [address] [place] [address] Polyarthralgia; Class 1 obesity due to excess [...] documented as of this encounter Care Teams Out Of School Hours Care Worker Relationship Specialty Start Date End Date Adriana Palencia MD [address] [place] [address] PCP - General Family Medicine 06/01/18 documented as of this encounter
--- OUTSIDE RECORDS SUMMARY | 2024-12-14 00:02 | XMS_ITS | Encounter Summary ---
Author Organization [employer] Address [address] [facility] 7 [place] [address] Care Team Providers Care Ager Tender Name Role Phone Adriana Palencia MD Primary Care Provide r Reason for Visit * Reason Comments Med Refill Encounter Details Date Type Department Care Team ([facility] st Contact Info) Description 08/31/2023 Refill [facility] MEDICINE [address] [place] [address] Adriana Palencia MD [address] [place] [address] Gastroesophageal reflux disease without esophagitis Social History [...] documented as of this encounter Care Teams Ager Tender Relationship Specialty Start Date End Date Adriana Palencia MD [address] [place] [address] PCP - General Family Medicine 06/01/18 documented as of this encounter
--- OUTSIDE RECORDS SUMMARY | 2024-12-14 00:02 | XMS_ITS | Encounter Summary ---
Author Organization [employer] Address [address] [facility] 7 [place] [address] Care Team Providers Care Gas Plumbing Inspector Name Role Phone Adriana Palencia MD Primary Care Provide r Reason for Visit * Reason Comments Med Refill Encounter Details Date Type Department Care Team ([facility] st Contact Info) Description 09/12/2024 Refill [facility] MEDICINE [address] [place] [address] Adriana Palencia MD 230 [place] [address] Acquired hypothyroidism Social History Tobacco Use Types [...] documented as of this encounter Care Teams Gas Plumbing Inspector Relationship Specialty Start Date End Date Adriana Palencia MD [address] [place] [address] PCP - General Family Medicine 06/01/18 documented as of this encounter
[2024-12-14] MEDS: Magnesium Hydrox/Alum Hydrox 30 ML ORAL.SUSP PO (00:25)
[2024-12-14 01:26] VITALS: BP 105/61; PULSE 57; RESP 16; TEMP 36.6; O2SAT 97
[2024-12-14 01:55] VITALS: BP 107/56; PULSE 67; RESP 16; TEMP 36.6; O2SAT 97
[2024-12-14 02:46] VITALS: BP 107/56; PULSE 67; RESP 16; TEMP 36.6; O2SAT 97
== END 2024-12-14 02:55 | disposition home or self-care (01) ==
PROVIDERS: Emergency Provider Emergency Medicine; PCP Internal Medicine
DX: G43.909 Migraine, unspecified, not intractable, without status migrainosus (principal); R11.0 Nausea
CPT/HCPCS: 96374; 96375; 99284; 99285; J0131; J1100; J1885; J2765

== ENCOUNTER 2024-12-19 08:36 | Outpatient (AMB) | payer OTHER, SELFPAY ==
--- OUTSIDE RECORDS SUMMARY | 2024-12-19 09:08 | XMS_ITS | Encounter Summary ---
Author Organization [employer] Address [address] [place] [address] 7 [place] [address] Care Team Providers Care Customer Complaint Clerk Name Role Phone Adriana Palencia MD Primary Care Provide r Reason for Visit * Reason Comments Med Refill Encounter Details Date Type Department Care Team ([facility] st Contact Info) Description 10/31/2022 Refill [facility] MEDICINE [address] [place] [address] Adriana Palencia MD [address] [place] [address] Social History Tobacco Use Types Packs/Day Years [...] documented as of this encounter Care Teams Customer Complaint Clerk Relationship Specialty Start Date End Date Adriana Palencia MD [address] [place] [address] PCP - General Family Medicine 06/01/18 documented as of this encounter
--- OUTSIDE RECORDS SUMMARY | 2024-12-19 09:08 | XMS_ITS | Clinical Summary ---
Author Organization [facility] Address [address] [place] [address] 7t [place] [address] Care Team Providers Care Dusting And Brushing Machine Operator Name Role Phone Adriana Palencia [...] hours. Active ergocalciferol (Vitamin D-2) 1.25 MG (92923 UT) capsule take 1 capsule by oral [...] every 6 (six) hours. Active Lactobacillus-Inu kristen ([facility] [employer] [facility]) capsule take 1 capsule 2 [...] DAY 90 tablet 1 025 2024 Discontinued Active Problems Problem Noted [...] life style modifications, diet and referral to regulatory compliance specialist. Recommended to decrease soda and sugary [...] 12/09/2024 3:30 PM EDT Office Visit [facility] [address] [place] [address] Manju Jennings NP Gastroesophageal reflux disease, unspecified whether esophagitis present (Primary Dx) 12/09/2024 Travel 12/07/2024 Refill [facility] [address] [place] [address] Adriana Palencia MD 12/06/2024 Telephone [facility] [address] [place] [address] Bree Ag MD No Show 12/05/2024 Telephone [facility] [address] [place] [address] Adriana Palencia MD Chart Prep 12/03/2024 Travel 12/02/2024 Telephone [facility] [address] [place] [address] Adriana Palencia MD Nurse Triage 11/25/2024 11:00 AM EDT Office Visit [facility] W[facility]-IN [facility] [address] [place] [address] Harsha Rees MD Gastroesophageal reflux disease, unspecified whether esophagitis present (Primary Dx) 11/15/2024 Telephone [facility] [address] [place] [address] Adriana Palencia MD Nurse Triage 11/14/2024 Refill [facility] [address] [place] [address] Adriana Palencia MD Muscle spasm; Pain 11/12/2024 Refill [facility] [address] [place] [address] Adriana Palencia MD Fibromyalgia 11/07/2024 Refill [facility] [address] [place] [address] Adriana Palencia MD Mild intermittent asthma, unspecified whether complicated 10/26/2024 Orders Only [facility] External Provider, [facility] 10/25/2024 Orders Only GENERIC EXTERNAL DATA DEPARTMENT Provider, Generic External Data 10/09/2024 Refill [facility] [address] [place] [address] Adriana Palencia MD Fibromyalgia 10/08/2024 Orders Only [facility] External Provider, [facility] 10/04/2024 Telephone [facility] [address] [place] [address] Adriana Palencia MD Lab Orders (/) from Last 3 Months Immunizations Immunization Administration [...] 2) 04/03/2023 02/06/2023 COVID-19 Vaccine ( season) 2024 08/04/2020, 07/07/2020 Influenza Vaccine (#1) 2024 02/06/2023 Mammogram 02/21/2025 02/22/2024, 11/0 05/2022, 08/27/2020, Additional history exists Alcohol/Substance Use [...] PM EDT Narrative 10/29/2024 8:26 PM EDT [place] [address] Magnetic Resonance Report Signed Patient: Sudha Dean MR#: [id number] : 1970 Acct:[id number] Age/Sex: 54 / F ADM Date: 10/26/24 Loc: HO.MRI Attending Dr: Kane Downey MD Ordering Physician: Kane Downey MD Date of Service: 10/26/24 Procedure(s): MR shoulder RT wo con Accession Number(s): [id number] cc: Ardiana Palencia MD; Kane Downey MD CLINICAL HISTORY: [...] in OV> 10/29/242024 DD/ 23 TD/TT: 10/29/242023 Licensed Land Surveyor: Procedure Note Donotuseinterpreter, Image - 10/29/2024 [place] [address] Magnetic Resonance Report Signed Patient: Sudha Dean NMR#: [id number] : 1970Acct:[id number] Age/Sex: 54 / FADM Date: 10/26/24 Loc: .MRI Attending Dr: Kane Downey MD Ordering Physician: Kane Downey MD Date of Service: 10/26/24 Procedure(s): MR shoulder RT wo con Accession Number(s): [id number] cc: Adriana Palencia MD; Kane Downey MD [...] in OV> 10/29/242024 DD/ 23 TD/TT: 10/29/242023 Licensed Land Surveyor: [facility] External Provider IMG MRI PROCEDURES Final Result * (ABNORMAL) TSH (10/25/2024 10:54 AM EDT) Thyroid Stimulating Hormone 0.06(L) 0.32 - 4.0 uIU/mL [facility] Comment:TSH 3rd Generation ( [facility]) 10/25/2024 10:5 4 AM EDT 10/25/2024 10:54 AM EDT Generic External Data Provider LAB BLOOD ORDERAB LES Final Result Performing Organization Address City/[facility]/ZIP Co de Phone Number [facility] [address] [place] [phone] * T4, Free (10/25/2024 10:54 AM EDT) Free T4 (Free Thyroxine) 1.17 0.71 - 1.85 ng/dL [facility] 10/25/2024 10:5 4 AM EDT 10/25/2024 10:54 AM EDT Generic External Data Provider LAB BLOOD ORDERAB LES Final Result Performing Organization Address City/[facility]/ZIP Co de Phone Number [facility] [address] [place] [phone] * MR Humerus w/o Contrast Right (10/08/2024 1:30 PM EDT) Anatomical Region Laterality Modality Upper Extremities, Humerus Right Magne tic Resonance 10/08/2024 1:30 PM EDT Narrative 10/08/2024 2:25 PM EDT [address] [address] Magnetic Resonance Report Signed Patient: Sudha Dean MR#: [id number] : 1970 Acct:[id number] Age/Sex: 54 / F ADM Date: 10/08/24 Loc: HO.MRI Attending Dr: Kane Downey MD Ordering Physician: Kane Downey MD Date of Service: 10/08/24 Procedure(s): MR humerus RT wo con Accession Number(s): [id number] cc: Adriana Palencia MD; Kane Downey MD [...] 10/08/24 1422 DD/ 1330 TD/TT: 10/08/24 1400 Licensed Land Surveyor: Procedure Note Donotuseinterpreter, Image - 10/08/[address] [address] Magnetic Resonance Report Signed Patient: Sudha Dean [facility]#: [id number] : 1970Acct:[id number] Age/Sex: 54 / FADM Date: 10/08/24 Loc: HO.MRI Attending Dr: Kane Downey MD Ordering Physician: Kane Downey MD Date of Service: 10/08/24 Procedure(s): MR humerus RT wo con Accession Number(s): [id number] cc: Adriana Palencia MD; Kane Downey MD [...] 10/08/24 1422 DD/ 1330 TD/TT: 10/08/24 1400 Licensed Land Surveyor: us [facility] External Provider IMG MRI PROCEDURES Final Result * BI Mammogram Screening Tomosynthesis Bilateral (02/22/2024 8:40 AM EST) Anatomical Region Laterality Modality Breast Bilateral Mammography 02/22/2024 8:40 AM EST Narrative 03/01/2024 4:10 PM EST [address] [place] [address] Mammography Report Signed Patient: Sudha Dean MR#: [id number] : 1970 Acct:[id number] Age/Sex: 54 / F ADM Date: 02/22/24 Loc: HO.MAMMO Attending Dr: Adriana Sanches MD Ordering Physician: Adriana Palencia MD Results: 1Negative Date of Service: 02/22/24 Follow Up: 1 Year From Orig inal Mammogram Procedure(s): MM tomosynthesis screening BI Accession Number(s): [id number] cc: Adriana Palencia MD EXAMINATION: MM SCREENING [...] Pablo DO in OV> 03/01/24 1607 DD/ TD/TT: 02/22/24 09 Licensed Land Surveyor: Procedure Note Donotuseinterpreter, Image - 03/01/2024 [facility] [address] [place] [address] [place] [address] Mammography Report Signed Patient: Sudha Dean NMR#: [id number] : 1970Acct:[id number] Age/Sex: 54 / FADM Date: 02/22/24 Loc: HO.MAMMO Attending Dr: Adriana Sanches MD Ordering Physician: Adriana Palencia MDResults: 1Negative Date of Service: 02/22/24Follow Up: 1 Year From Orig inal Mammogram Procedure(s): MM tomosynthesis screening BI Accession Number(s): [id number] cc: Adriana Palencia MD EXAMINATION: MM SCREENING [...] by: Rachana Pablo DO 03/01/2024 04:07 PM [facility] Dictated By: Rachana Pablo DO Signed By: <Electronically signed by Rachana Pablo DO in OV> 03/01/24 1607 DD/ TD/TT: 02/22/24902 Licensed Land Surveyor: us Adriana Sanches MD IMG BI PROCEDURES Fin al Result * (ABNORMAL) Lipid Panel with Reflex to Direct LDL (12/13/2023 12:18 PM EDT) Triglycerides 52 <150 mg/dL [facility] Comment:Desirable Triglyceri de: less than 150 mg/dLBorderline High Triglyceride 150-199 mg/dLHigh Triglyceride: 200-499 mg/dLVery High Triglyceride: greater than or equal to 5OO mg/dL Cholesterol 187 <200 mg/dL [facility] Comment:Desirable Cholestero l: less than 200 mg/dLBorderline High Cholesterol: 200-239 mg/dLHigh Cholesterol: greater than 239 mg/dL LDL Cholesterol Calculated 109(H) <100 mg/dL [facility] Comment:Desirable LDL: less than 100 mg/dLNear Optimal/Above Optimal LDL: 110- 129 mg/dLBorderline High LDL: 130-159 mg/dLHigh LDL: 160-189 mg/dLVery High LDL: greater than or equal to 190 mg/dL HDL Cholesterol 68 >40 mg/dL [facility] Comment:Desirable HDL: great er than 40 mg/dL Note: This HDL assay may give artificially low results in patients with liver disease. Blood 12/13/2023 12:1 8 PM EDT 12/13/2023 1:25 PM EDT Adriana Sanches MD LAB BLOOD ORDERABLES Final Result [facility] [address] [place] [phone] * Hepatitis C Viral RNA, Quantitative, Real-Time PCR (12/13/2023 12:18 PM EDT) Hepatitis C Viral Load <15 NOT DETECTED NOT DETECTED IU/mL [facility] HCV Log PCR <1.18 NOT DETECTED NOT DETECTED Log IU/mL [facility] Comment:For additional infor mattitus, please refer tohttp://education.WeDemand/faq/RGO61s9(This link is being provided for informational/educational purposes only.)THIS TEST WAS PERFORMED AT:[facility] [place] [phone] KENNEDY MD Blood 12/13/2023 12:1 8 PM EDT 12/13/2023 1:25 PM EDT us Adriana Sanches MD LAB BLOOD ORDERABLES Final Result Performing Organization Address City/[facility]/ZIP Co de Phone Number [facility] [address] [place] [phone] * HIV-1/2 Antigen and Antibodies, Fourth Generation, with Reflexes (12/13/2023 12:18 PM EDT) HIV AB/AG Nonreactive Nonreactive [facility] Comment:HIV-1 p24 Ag and/or HIV-1/HIV-2 Ab not detected.A test result that is nonreactive does not exclude thepossibility of exposure to or infection with HIV-1 and/orHIV-2. Nonreactive results in this assay for individualswith prior exposure to HIV-1 and/or HIV-2 may be due toantigen and antibody levels that are below the limit ofdetection of this assay.The [employer] HIV Ag/Ab Combo assay result andsupplemental assay results should be interpreted inconjunction with the patient's clinical presentation,history and other laboratory results. If the results areinconsistent with clinical evidence, additional testing issuggested to confirm the result. Blood Venous blood specimen / Unknown 12/13/2023 12:18 PM EDT 12/13/2023 1:15 PM EDT us Adriana Sanches MD LAB BLOOD ORDERABLES Final Result Performing Organization Address [facility]/ZIP Co de Phone Number [facility] [address] [place] [phone] * Hm Pap Smear (07/02/2021) Pap Negative for intraephithelial lesion or malignancy Negative for intraephithelial lesion or malignancy, Other HPV Undetected us Historical Provider HEALTH MAINTENANCE Final Result from Last 3 Months or Most Recently Relevant to Health Maintenance Insurance [facility] < 65 Care Teams Dusting And Brushing Machine Operator Relationship Specialty Start Date End Date Adriana Palencia MD [address] [place] [address] PCP - General Family Medicine 06/01/18
--- OUTSIDE RECORDS SUMMARY | 2024-12-19 09:08 | XMS_ITS | Encounter Summary ---
Author Organization [employer] Address [address] [facility] 7 [place] [address] Care Team Providers Care Caramel Cutter Helper Name Role Phone Adriana Palencia MD Primary Care Provide r Reason for Visit * Reason Comments Med Refill Encounter Details Date Type Department Care Team ([facility] st Contact Info) Description 08/02/2024 Refill [facility] [address] [place] [address] Adriana Palencia MD [address] [place] [address] Class 1 obesity due to excess calories [...] documented as of this encounter Care Teams Caramel Cutter Helper Relationship Specialty Start Date End Date Adriana Palencia MD [address] [place] [address] PCP - General Family Medicine 06/01/18 documented as of this encounter
--- OUTSIDE RECORDS SUMMARY | 2024-12-19 09:08 | XMS_ITS | Encounter Summary ---
Author Organization [employer] Address [address] [facility] 7 [place] [address] Care Team Providers Care Petroleum Production Engineer Name Role Phone Adriana Palencia MD Primary Care Provide r Encounter Details Date Type Department Care Team ([facility] st Contact Info) Description 05/17/2022 Telephone [facility] [address] [place] [address] Rosemary Espana RN [address] [place] [address] Social History Tobacco Use Types Packs/Day Years [...] triaged today, [place] [facility] [place] for anxiety issues, chest pain, and ear buzzing.. please obtain ER records. documented in this encounter Plan of Treatment Not on file documented as of this encounter Visit Diagnoses Not on filedocumented in this encounter Care Teams Petroleum Production Engineer Relationship Specialty Start Date End Date Adriana Palencia MD [address] [place] [address] PCP - General Family Medicine 06/01/18 documented as of this encounter
--- OUTSIDE RECORDS SUMMARY | 2024-12-19 09:08 | XMS_ITS | Encounter Summary ---
Author Organization [employer] Address [address] [facility] 7 [place] [address] Care Team Providers Care Nicker Name Role Phone Adriana Palencia MD Primary Care Provide r Reason for Visit * Reason Onset Date Comments Med Refill 05/21/2024 Encounter Details Date Type Department Care Team ([facility] st Contact Info) Description 05/21/2024 Telephone [facility] [address] [place] [address] Adriana Palencia MD [address] [place] [address] Med Refill Social History Tobacco Use Types [...] MG/0.5ML solution auto-injector To be sent to: [facility]/pharmacy #[id number] [place], [place] - [address] [place] [address] documented in this encounter Plan of Treatment Not on file documented as of this encounter Visit Diagnoses Not on filedocumented in this encounter Additional Health Concerns Assessment Noted Time PHQ-9 Depression Total Score: 15 024 9:44 AM EST documented as of this encounter Care Teams Nicker Relationship Specialty Start Date End Date Adriana Palencia MD [address] [place] [address] PCP - General Family Medicine 06/01/18 documented as of this encounter
--- OUTSIDE RECORDS SUMMARY | 2024-12-19 09:08 | XMS_ITS | Clinical Summary ---
Author Organization [employer] [facility] Address [address] [place] [address] Care Team Providers Care Research Laboratory Manager Name Role Phone Unavailable Primary Care Provider [...]
--- OUTSIDE RECORDS SUMMARY | 2024-12-19 09:08 | XMS_ITS | Encounter Summary ---
Author Organization [employer] Address [address] [facility] 7 [place] [address] Care Team Providers Care Furniture Finisher Apprentice Name Role Phone Adriana Palencia MD Primary Care Provide r Reason for Visit * Reason Comments Med Refill Encounter Details Date Type Department Care Team ([facility] st Contact Info) Description 08/31/2023 Refill [facility] MED[facility] [address] [place] [address] Adriana Palencia MD [address] [place] [address] Gastroesophageal reflux disease without esophagitis Social History [...] documented as of this encounter Care Teams Furniture Finisher Apprentice Relationship Specialty Start Date End Date Adriana Palencia MD [address] [place] [address] PCP - General Family Medicine 06/01/18 documented as of this encounter
--- OUTSIDE RECORDS SUMMARY | 2024-12-19 09:08 | XMS_ITS | Encounter Summary ---
Author Organization [employer] Address [address] [facility] 7 [place] [address] Care Team Providers Care Sales Representative Adding Machines Name Role Phone Adriana Palencia MD Primary Care Provide r Reason for Visit * Reason Comments Med Refill Encounter Details Date Type Department Care Team ([facility] st Contact Info) Description 07/19/2024 Refill [facility] [address] [place] [address] Adriana Palencia MD [address] [place] [address] Class 1 obesity due to excess calories [...] documented as of this encounter Care Teams Sales Representative Adding Machines Relationship Specialty Start Date End Date Adriana Palencia MD [address] [place] [address] PCP - General Family Medicine 06/01/18 documented as of this encounter
--- OUTSIDE RECORDS SUMMARY | 2024-12-19 09:08 | XMS_ITS | Encounter Summary ---
Author Organization [employer] Address [address] [facility] 7t [place] [address] Care Team Providers Care Shell Molding Roller Blast Operator Name Role Phone Adriana Palencia MD Primary Care Provide r Reason for Visit * Reason Comments Med Change Request Encounter Details Date Type Department Care Team ([facility] st Contact Info) Description 09/10/2024 Refill [facility] [address] [place] [address] Adriana Palencia MD [address] [place] [address] Class 1 obesity due to excess calories [...] documented as of this encounter Care Teams Shell Molding Roller Blast Operator Relationship Specialty Start Date End Date Adriana Palencia MD [address] [place] [address] PCP - General Family Medicine 06/01/18 documented as of this encounter
--- OUTSIDE RECORDS SUMMARY | 2024-12-19 09:08 | XMS_ITS | Encounter Summary ---
Author Organization [employer] Address [address] [place] [address] 7 [place] [address] Care Team Providers Care Special Education Professor Name Role Phone Adriana Palencia MD Primary Care Provide r Reason for Visit * Reason Comments Med Refill Encounter Details Date Type Department Care Team (Late st Contact Info) Description 11/02/2022 Refill [facility] [address] [place] [address] Lilia Mcgregor FNP Social History Tobacco Use [...] documented as of this encounter Care Teams Special Education Professor Relationship Specialty Start Date End Date Adriana Palencia MD [address] [place] [address] PCP - General Family Medicine 06/01/18 documented as of this encounter
--- OUTSIDE RECORDS SUMMARY | 2024-12-19 09:08 | XMS_ITS | Encounter Summary ---
Author Organization [employer] Address [address] [facility] 7 [place] [address] Care Team Providers Care Medical Sociologist Name Role Phone Adriana Palencia MD Primary Care Provide r Reason for Visit * Reason Onset Date Comments Letter Needed 04/18/2023 Encounter Details Date Type Department Care Team ([facility] st Contact Info) Description 04/18/2023 Telephone [facility] MED[facility]INE [address] [place] [address] Adriana Palencia MD [address] [place] [address] Letter Needed Social History Tobacco Use Types [...] causing herasthma attacks. Please contact pt @ [phone] Nigerien Speaker documented in this encounter Plan of Treatment Not on file documented as of this encounter Visit Diagnoses Not on filedocumented in this encounter Additional Health Concerns Assessment Noted Time PHQ-9 Depression Total Score: 14 023 3:05 PM EDT documented as of this encounter Care Teams Medical Sociologist Relationship Specialty Start Date End Date Adriana Palencia MD [address] [place] [phone] PCP - General Family Medicine 06/01/18 documented as of this encounter
--- OUTSIDE RECORDS SUMMARY | 2024-12-19 09:08 | XMS_ITS | Encounter Summary ---
Author Organization [employer] Address [address] [facility] 7t [place] [address] Care Team Providers Care Agile Test Lead Name Role Phone Adriana Palencia MD Primary Care Provide r Reason for Visit * Reason Comments Med Refill Encounter Details Date Type Department Care Team ([facility] st Contact Info) Description 04/14/2023 Refill [facility] [address] [place] [address] Heather Wei MD [address] [place] [address] Gastroesophageal reflux disease without esophagitis Social History [...] documented as of this encounter Care Teams Agile Test Lead Relationship Specialty Start Date End Date Adriana Palencia MD [address] [place] [address] PCP - General Family Medicine 06/01/18 documented as of this encounter
--- OUTSIDE RECORDS SUMMARY | 2024-12-19 09:08 | XMS_ITS | Encounter Summary ---
Author Organization [employer] Address [address] [place] [address] 7t [place] [address] Care Team Providers Care Roping Tender Name Role Phone Adriana Palencia MD Primary Care Provide r Reason for Visit * Reason Comments Med Refill Encounter Details Date Type Department Care Team (Late st Contact Info) Description 11/24/2022 Refill [facility] [address] [place] [address] Lilia Mcgregor FNP Migraine without aura and [...] documented as of this encounter Care Teams Roping Tender Relationship Specialty Start Date End Date Adriana Palencia MD [address] [place] [address] PCP - General Family Medicine 06/01/18 documented as of this encounter
--- OUTSIDE RECORDS SUMMARY | 2024-12-19 09:08 | XMS_ITS | Encounter Summary ---
Author Organization [employer] Address [address] [place] [address] 7 [place] [address] Care Team Providers Care Ham Boner Name Role Phone Adriana Palencia MD Primary Care Provide r Reason for Visit * Reason Comments Med Refill Encounter Details Date Type Department Care Team ([facility] st Contact Info) Description 01/10/2023 Refill [facility] [address] [place] [address] Adriana Palencia MD [address] [place] [address] Social History Tobacco Use Types Packs/Day Years [...] documented as of this encounter Care Teams Ham Boner Relationship Specialty Start Date End Date Adriana Palencia MD [address] [place] [address] PCP - General Family Medicine 06/01/18 documented as of this encounter
--- OUTSIDE RECORDS SUMMARY | 2024-12-19 09:08 | XMS_ITS | Clinical Summary ---
Author Organization [facility] Address [address] [place] [phone] Phone Care Team Providers Care College [employer] Faculty Member Name Role Phone Unknown, Unknown Primary Care [...] MEDICARE PART A & B Care Teams College [employer] Faculty Member Relationship Specialty Start Date End Date Unknown, Unknown, PCP - General 04/21/17 Additional Source Comments The information contained in this document represents components of the legal health record. It is not the complete legal health record.[facility]
--- OUTSIDE RECORDS SUMMARY | 2024-12-19 09:08 | XMS_ITS | Encounter Summary ---
Author Organization [employer] Address [address] [facility] 7t [place] [address] Care Team Providers Care Package Center Supervisor Name Role Phone Adriana Palencia MD Primary Care Provide r Reason for Visit * Reason Comments Med Refill Encounter Details Date Type Department Care Team ([facility] st Contact Info) Description 07/29/2024 Refill [facility] MED[facility]INE [address] [place] [address] Adriana Palencia MD [address] [place] [address] Class 1 obesity due to excess calories [...] documented as of this encounter Care Teams Package Center Supervisor Relationship Specialty Start Date End Date Adriana Palencia MD [address] [place] [address] PCP - General Family Medicine 06/01/18 documented as of this encounter
--- OUTSIDE RECORDS SUMMARY | 2024-12-19 09:08 | XMS_ITS | Encounter Summary ---
Author Organization [employer] Address [address] 7t [place] [address] Care Team Providers Care Manager Banking Name Role Phone Adriana Palencia MD Primary Care Provide r Encounter Details Date Type Department Care Team ([facility] st Contact Info) Description 03/14/2023 Abstract [facility] [address] [place] [address] Eliane Raman Social History Tobacco Use Types [...] as of this encounter Care Teams Manager Banking Relationship Specialty Start Date End Date Adriana Palencia MD [address] [place] [address] PCP - General Family Medicine 06/01/18 documented as of this encounter
--- OUTSIDE RECORDS SUMMARY | 2024-12-19 09:08 | XMS_ITS | Encounter Summary ---
Author Organization [employer] Address [address] 7t [place] [address] Care Team Providers Care New Car Driver Name Role Phone Adriana Palencia MD Primary Care Provide r Reason for Visit * Reason Comments Med Refill Encounter Details Date Type Department Care Team ([facility] st Contact Info) Description 03/10/2024 Refill [facility] [address] [place] [address] Adriana Palencia MD [address] [place] [address] Vitamin B12 deficiency Social History Tobacco Use [...] documented as of this encounter Care Teams New Car Driver Relationship Specialty Start Date End Date Adriana Palencia MD [address] [place] [address] PCP - General Family Medicine 06/01/18 documented as of this encounter
--- OUTSIDE RECORDS SUMMARY | 2024-12-19 09:08 | XMS_ITS | Encounter Summary ---
Author Organization [employer] Address [address] [place] [address] 7t [place] [address] Care Team Providers Care Bolt Machine Operator Name Role Phone Adriana Palencia MD Primary Care Provide r Encounter Details Date Type Department Care Team (Late st Contact Info) Description 03/17/2022 Abstract [facility] MEDICINE [address] [place] [address] ProviderGurvinder MD Social History Tobacco Use Types [...] on filedocumented in this encounter Care Teams Bolt Machine Operator Relationship Specialty Start Date End Date Adriana Palencia MD [address] [place] [address] PCP - General Family Medicine 06/01/18 documented as of this encounter
--- OUTSIDE RECORDS SUMMARY | 2024-12-19 09:08 | XMS_ITS | Encounter Summary ---
Author Organization [employer] Address [address] [facility] 7t [place] [address] Care Team Providers Care Central Sterilization Technician Name Role Phone Adriana Palencia MD Primary Care Provide r Encounter Details Date Type Department Care Team ([facility] st Contact Info) Description 01/18/2023 Abstract [facility]INE [address] [place] [address] Eliane Raman Social History Tobacco Use Types [...] documented as of this encounter Care Teams Central Sterilization Technician Relationship Specialty Start Date End Date Adriana Palencia MD [address] [place] [address] PCP - General Family Medicine 06/01/18 documented as of this encounter
--- OUTSIDE RECORDS SUMMARY | 2024-12-19 09:08 | XMS_ITS | Encounter Summary ---
Author Organization [employer] Address [address] [facility] 7 [place] [address] Care Team Providers Care Patient Safety Officer Name Role Phone Adriana Palencia MD Primary Care Provide r Reason for Visit * Reason Comments Med Refill Encounter Details Date Type Department Care Team ([facility] st Contact Info) Description 12/02/[address] [facility]INE [address] [place] [address] Bree Ag MD [address] [place] [address] Generalized anxiety disorder Social History Tobacco Use [...] documented as of this encounter Care Teams Patient Safety Officer Relationship Specialty Start Date End Date Adriana Palencia MD [address] [place] [address] PCP - General Family Medicine 06/01/18 documented as of this encounter
--- OUTSIDE RECORDS SUMMARY | 2024-12-19 09:08 | XMS_ITS | Encounter Summary ---
Author Organization [employer] Address [address] [facility] 7t [place] [address] Care Team Providers Care Aegis Console Operator Track Name Role Phone Adriana Palencia MD Primary Care Provide r Reason for Visit * Reason Comments Med Refill Encounter Details Date Type Department Care Team ([facility] st Contact Info) Description 08/03/2024 Refill [facility] MED[facility]INE [address] [place] [address] Adriana Palencia MD [address] [place] [address] Class 1 obesity due to excess calories [...] documented as of this encounter Care Teams Aegis Console Operator Track Relationship Specialty Start Date End Date Adriana Palencia MD [address] [place] [address] PCP - General Family Medicine 06/01/18 documented as of this encounter
--- OUTSIDE RECORDS SUMMARY | 2024-12-19 09:08 | XMS_ITS | Encounter Summary ---
Author Organization [employer] Address [address] [facility] 7t [place] [address] Care Team Providers Care Clinical Staff Educator Name Role Phone Adriana Palencia MD Primary Care Provide r Reason for Visit * Reason Comments Med Refill Encounter Details Date Type Department Care Team ([facility] st Contact Info) Description 09/07/2024 Refill [facility] MED[facility]INE [address] [place] [address] Adriana Palencia MD [address] [place] [address] Polyarthralgia; Class 1 obesity due to excess [...] documented as of this encounter Care Teams Clinical Staff Educator Relationship Specialty Start Date End Date Adriana Palencia MD [address] [place] [address] PCP - General Family Medicine 06/01/18 documented as of this encounter
--- OUTSIDE RECORDS SUMMARY | 2024-12-19 09:08 | XMS_ITS | Encounter Summary ---
Author Organization [facility] Address [address] [place] [address] Phone Care Team Providers Care Computer Science Intern Name Role Phone Unknown, Unknown Primary Care Provider Nikia pina Encounter Details Date Type Department Care Team (Latest Contact Info) Description 04/21/2017 Ancillary Orders [facility] [address] [place] [address] [place] [address] Hector Zamora DO [address] [place] [address] Palpitations; Chest pain, unspecified type; Syncope, unspecified [...] type documented in this encounter Care Teams Computer Science Intern Relationship Specialty Start Date End Date Unknown, Unknown, MD PCP - General 04/21/17 documented as of this encounter Additional Source Comments The information contained in this document represents components of the legal health record. It is not the complete legal health record.[facility]
--- OUTSIDE RECORDS SUMMARY | 2024-12-19 09:08 | XMS_ITS | Encounter Summary ---
Author Organization [employer] Address [address] [place] [address] 7 [place] [address] Care Team Providers Care Ring Attacher Name Role Phone Adriana Palencia MD Primary Care Provide r Reason for Visit * Reason Comments Med Refill Encounter Details Date Type Department Care Team ([facility] st Contact Info) Description 09/25/2022 Refill [facility] MEDICINE [address] [place] [address] Adriana Palencia MD [address] [place] [address] Fibromyalgia Social History Tobacco Use Types Packs/Day [...] documented as of this encounter Care Teams Ring Attacher Relationship Specialty Start Date End Date Adriana Palencia MD [address] [place] [address] PCP - General Family Medicine 06/01/18 documented as of this encounter
--- OUTSIDE RECORDS SUMMARY | 2024-12-19 09:08 | XMS_ITS | Encounter Summary ---
Author Organization [employer] Address [address] [place] [address] 7t [place] [address] Care Team Providers Care Mortgage Processing Manager Name Role Phone Adriana Palencia MD Primary Care Provide r Encounter Details Date Type Department Care Team (Late st Contact Info) Description 03/17/2022 Abstract [facility] MEDICINE [address] [place] [address] ProviderGurvinder MD Social History Tobacco Use Types [...] on filedocumented in this encounter Care Teams Mortgage Processing Manager Relationship Specialty Start Date End Date Adriana Palencia MD [address] [place] [address] PCP - General Family Medicine 06/01/18 documented as of this encounter
--- OUTSIDE RECORDS SUMMARY | 2024-12-19 09:08 | XMS_ITS | Clinical Summary ---
Author Organization [facility] Address [address] [place] [address] Phone Care Team Providers Care Director Of Training Name Role Phone Maribel Garcia XANDER Primary Care Provider [phone] Allergies No known active allergies Medications No [...] - Td or Tdap) 04/30/2023 04/30/2013, 07/10/2008 Depression Screening 04/17/2024 COVID-19 Vaccine (3 - season) 2024 08/04/2020, 07/07/2020 Influenza Vaccine (#1) 2024 02/06/2023 Hepatitis B [...] patient's age to complete this topic Insurance [place] [address] [address] MEDICARE Member Subscriber Plan / Payer (Ef fective 2024-Present) Name:Sudha Dean Relation to Subscriber:Self Name:Sudha Dean Payer ID:[id number] Group ID:Not on file Type:Not on file Address: [address] [id number] Care Teams Director Of Training Relationship Specialty Start Date End Date Maribel Garcia FNP PCP - General Internal Medicine 04/11/13
--- OUTSIDE RECORDS SUMMARY | 2024-12-19 09:08 | XMS_ITS | Encounter Summary ---
Author Organization [employer] Address [address] [facility] 7 [place] [address] Care Team Providers Care Kaiawhina Kohanga Reo Name Role Phone Adriana Palencia MD Primary Care Provide r Reason for Visit * Reason Comments Med Refill Encounter Details Date Type Department Care Team ([facility] st Contact Info) Description 09/12/2024 Refill [facility] MEDICINE [address] [place] [address] Adriana Palencia MD [address] [place] [address] Acquired hypothyroidism Social History Tobacco Use Types [...] documented as of this encounter Care Teams Kaiawhina Kohanga Reo Relationship Specialty Start Date End Date Adriana Palencia MD [address] [place] [address] PCP - General Family Medicine 06/01/18 documented as of this encounter
--- OUTSIDE RECORDS SUMMARY | 2024-12-19 09:08 | XMS_ITS | Encounter Summary ---
Author Organization [employer] Address [address] [facility] 7t [place] [address] Care Team Providers Care Medical Technical Writer Name Role Phone Adriana Palencia MD Primary Care Provide r Reason for Visit * Reason Comments Med Change Request Encounter Details Date Type Department Care Team ([facility] st Contact Info) Description 08/06/2024 Refill [facility] MEDICINE [address] [place] [address] Adriana Palencia MD [address] [place] [address] Class 1 obesity due to excess calories [...] as of this encounter Care Teams Medical Technical Writer Relationship Specialty Start Date End Date Adriana Palencia MD [address] [place] [address] PCP - General Family Medicine 06/01/18 documented as of this encounter
--- NOTE | 2024-12-19 09:13 | MHC.OFFVIS ---
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: Yes Wafer Line Worker Name: #[id number] Allergies diphenhydramine (From BENADRYL) Allergy (Intermediate, Verified 12/19/24 09:14) SEVERE LETHARGY oxycodone (From Percocet) Adverse Reaction (Verified 12/19/24 09:14) Anxiety Medication List - Last Reconciled 12/19/24 by Frances Valle CNP albuterol sulfate 90 mcg/actuation 2 puffs inhalation Q4-6H PRN albuterol sulfate 90 mcg/actuation 2 inhalations inhalation Q4-6H PRN baclofen 10 mg PO TID benzonatate 100 mg PO BID PRN diclofenac sodium 1% topical hydroxyzine HCl 25 mg PO TID PRN levothyroxine (Synthroid) 112 mcg PO DAILY lorazepam 0.5 mg PO BEDTIME PRN naproxen (Naprosyn) 500 mg PO BID PRN omeprazole 20 mg PO DAILY sumatriptan succinate take 1 tab at onset of headache; if no relief may repeat 1 tab after at least 2 hrs; max = 4 tabs/24 hr valacyclovir 500 mg PO DAILY HPI Comments Details: 54-year-old woman with asthma, anxiety, and depression who is here for headaches. Headaches began around teenage years, happening around her period and lasting one day. Over the last 2 years, she has had three bad migraines, with the most recent being the most severe resulting in visit to [facility] on 12/13/2024. She had bad, ?very intense? headache x2 weeks. She tried ibuprofen, Excedrin, and Tylenol without relief. She was given migraine cocktail in the ER which helped, and was discharged with sumatriptan 50mg. She has taken few doses of sumatriptan as needed with good relief. Headaches were usually frontal or bitemporal, moderate to severe throbbing-type pain, worse with light and sound, and associated with nausea, and sometimes dizziness or lightheadedness and blurred vision, lasting up to 1 week in the past. She thought stress may be trigger, and she was under some stress. Sleep was not so good without medication. She was working with psychiatrist. She tried topiramate in the past for headaches, but had side effects. [facility] Medical History Panic attacks Asthma Depression Vitamin D deficiency Hypothyroidism Thyroid activity decreased Surgical History Hx of cervical polypectomy Hx of lithotripsy Hx of gastric bypass Family History Father Leukemia Cancer Mother Diabetes mellitus Hypertension Social History Household Members: Spouse Housing: Apartment Unable to assess alcohol history related to: Unknown Alcohol intake: former Comment: medicated with ketorolac and po tylenol Patient Tobacco Use Status: Never used Tobacco Current occupational status: unemployed Sexual orientation: Straight/Heterosexual Gender identity: Female Female Reproductive History Menstrual Age of Menarche: 12 Review of Systems Const Denies chills, Denies daytime sleepiness, Reports difficulty sleeping, Denies fatigue, Denies fever(s), Denies frequent falls, Reports headache(s), Denies increased appetite, Denies poor appetite, Denies snoring, Denies weakness, Denies weight gain and Denies weight loss Eyes Denies loss of vision ENT Denies vertigo, Reports dizziness and Reports headache(s) Card Denies chest pain at rest, Denies chest pain with activity, Denies syncope, Denies leg edema and Denies palpitations Resp Denies snoring GI Denies constipation, Denies heartburn, Denies diarrhea and Denies nausea Denies urinary frequency, Denies urinary incontinence and Denies urinary urgency Musc Denies abnormal gait, Denies numbness and Denies tingling Skin/Breast Denies dry skin and Denies rash Neuro Denies abnormal gait, Denies vertigo, Reports dizziness, Denies syncope, Denies frequent falls, Reports headache(s), Denies lack of coordination, Denies loss of vision, Denies memory loss, Denies numbness, Denies restless legs, Denies seizure-like activity, Denies tingling, Denies paresthesias, Denies tremor(s) and Denies weakness Psych Reports anxiety, Denies depression, Denies auditory hallucinations, Denies memory loss, Denies visual hallucinations and Denies suicidal ideation Endo Denies fatigue and Denies palpitations Physical Exam Const Other: General Appearance:? normal, in no acute distress. Head:? normocephalic, atraumatic. Eyes:? sclera non-icteric, conjunctiva clear. Ears:? auditory canal clear, tympanic membrane intact, clear. Nose:? no lesions. Oral Cavity:? gums normal, mucosa moist, no lesions. Throat:? clear. Neck/Thyroid:? no cervical lymphadenopathy. Skin:? no rashes, no significant birthmarks. Heart:? S1, S2 normal, no murmurs. Lungs:? clear anteriorly and posteriorly. Chest:? no gross rib deformity, clear to auscultation. Extremities:? no edema. Psych:? alert, oriented, cognitive function intact, cooperative with exam. Neuro Other: Mental Status:?Normal attention, orientation, memory and affect.? Cranial Nerves:?Pupils are equal, round and reactive to light. External occular muscles are intact. Visual manriquez are full. Face is symmetrical. Facial sensations are normal. Tongue is midline. Palate elevates symmetrically. Shoulder shrugging is normal. Hearing to bedside conversation is normal. Fundoscopy: [facility] Motor Examination:?Normal muscle tone, bulk and strength,?Deep tendon reflexes are 2+,?Plantars are flexor.? Sensory Exam:?....? Coordination:?No ataxia,?no titubation.? Gait Exam: Within normal limits. Cerebellar Signs:?Mexwaz-ia-ghpk and dejl-om-nesy is normal.? Extrapyramidal System:?No tremor, rigidity with normal facial expressions.? Pronator Drift:?Not present.? Involuntary Movements:?No tremors seen.? Speech:?Normal.? Results Reviewed Results Reviewed: [place] [address] Magnetic Resonance Report Signed Patient: Sudha Dean MR#: [id number] : 1970 Acct:[id number] Age/Sex: 52 / F ADM Date: 06/29/22 Loc: HO.MRI Attending Dr: Lilia TERRELL Ordering Physician: Lilia Mcgregor Date of Service: 06/29/22 Procedure(s): MR head/brain wo/w con Accession Number(s): [id number] cc: Lilia Mcgregor~ EXAMINATION: MR BRAIN WITHOUT AND WITH CONTRAST CLINICAL INFORMATION: Benign intracranial hypertension, with chronic headache. COMPARISON: CT scan of the head 06/10/2022. TECHNIQUE: Multiplanar, multisequence MRI of the brain was obtained before and after the intravenous administration of 8.5 mL Gadavist. FINDINGS: No diffusion abnormalities are identified to suggest an acute or subacute infarct. No mass effect or midline shift is seen. The ventricles and sulci are normal in size. There are a few scattered foci of hyperintense FLAIR signal in the periventricular subcortical white matter which are nonspecific and may be consistent with early/mild chronic microvascular ischemic disease with sequelae of vasculitis or migraine. There is a mildly prominent vascular channel in the anterior right centrum semiovale. The 7th and 8th cranial nerve complexes are normal in course and caliber. No signal abnormality is seen in the inner ear structures on the precontrast axial T1-weighted sequence. Fluid signal is preserved within the cochleae, semicircular canals, and vestibules on the high-resolution axial FIESTA sequence. No cerebellopontine angle lesion is noted. There is no abnormal labyrinthine or intracanalicular enhancement on postcontrast imaging. No extra-axial fluid collections are seen. The brainstem appears normal. On postcontrast imaging, there is no abnormal parenchymal or leptomeningeal enhancement. There is also no abnormal enhancement of the packing meninges. Evaluation of the orbits is unremarkable on images obtained in this study. No pathologic magnetic susceptibility artifact is identified on the gradient refocused acquisition. The cerebellar tonsils have normal contour and position, and the craniocervical junction appears normal. Marrow signal and midline structures are normal. The major intracranial flow-voids at the level of the [place] are preserved. The dural venous sinus flow-voids are maintained. The mastoid air cells and paranasal sinuses are well-aerated. MR/MR head/brain wo/w con IMPRESSION: 1. There are no acute bleeds or territorial infarcts. No masses are demonstrated. There is no abnormal enhancement. 2. The internal auditory canals and CP angles appear normal bilaterally. 3. There are scattered foci of hyperintense FLAIR signal as described above. [address] [address] [address] Scan Report Signed Patient: Sudha Dean MR#: [id number] : 1970 Acct:[id number] Age/Sex: 54 / F ADM Date: 02/07/24 Loc: HO.ED Attending Dr: Ordering Physician: Marlen Pearl DO Date of Service: 02/07/24 Procedure(s): CT head/brain wo IV con Accession Number(s): [id number] cc: Adriana Palencia MD; Marlen Pearl DO~ EXAMINATION: CT HEAD WITHOUT CONTRAST CLINICAL INFORMATION: Intractable headaches for several weeks COMPARISON: MRI brain 06/29/2022. CT brain 06/10/2022 TECHNIQUE: Contiguous axial imaging was performed from the skull base to vertex without intravenous administration of contrast. This CT examination was performed using dose optimization techniques as appropriate, variously including the following: *Automated exposure control *Adjustment of mA and/or kV according to patient size (this includes techniques or standardized protocols for targeted exams where dose is matched to indication/reason for exam; i.e. extremities or head) *Use of iterative reconstruction technique DLP: 631 mGy-cm FINDINGS: No intra or extra-axial fluid collection or hemorrhage, mass or mass effect. Sulci and ventricles normal. Calvarium is intact. Ossification in portions of the left mastoid air cells speaks for chronic mastoiditis. There is mild mucoperiosteal thickening within the ethmoid sinuses. CT/CT head/brain wo IV con IMPRESSION: No acute intracranial pathology. Electronically signed by: Maksim Tabor MD 02/07/2024 09:51 AM EDT Dictated By: Maksim Tabor MD Signed By: <Electronically signed by Maksim Tabor MD in OV> 02/07/24 0951 Ventricles slightly small Assessment & Plan Assessment & Plan (1) Migraine without aura: Code(s): G43.009 - Migraine without aura, not intractable, without status migrainosus Category: Medical Qualifiers: Intractability: not intractable Status migrainosus presence: without status migrainosus Qualified Code(s): G43.009 - Migraine without aura, not intractable, without status migrainosus Plan: Continue sumatriptan 50mg 1 tablet as needed for migraine. May take with 1 Aleve or Excedrin and cup of tea or coffee. Start ondansetron 4mg 1 tablet as needed for nausea. She was educated on the use/side effects of these medications, do not take sumatriptan (or any OTC analgesic) more than 2-3x/week as this may cause more headaches (medication over-use headaches). Plan Exam, findings, and plan reviewed with Dr. Blackman. Medications: New sumatriptan succinate take 1 tab at onset of headache; if no relief may repeat 1 tab after at least 2 hrs; PO 10 tabs 5RF 30 days ondansetron 4 mg PO DAILY PRN 10 tabs 5RF nausea and vomiting 30 days Discontinued sumatriptan succinate Discontinued Reason: Order take 1 tab at onset of headache; if no relief may repeat 1 tab after at least 2 hrs; max = 4 tabs/24 hr 7 tabs 0RF Coding Level of Care Code New Pt Level 4 (62990) Diagnoses Migraine without aura and without status migrainosus, not intractable G43.009 Intractability: not intractable Status migrainosus presence: without status migrainosus
== END 2024-12-19 09:50 | disposition home or self-care (01) ==
LOC: HO.HSM 08:37
PROVIDERS: PCP Internal Medicine; Visit Provider Registered Nurse
DX: G43.009 Migraine without aura, not intractable, without status migrainosus (principal)
CPT/HCPCS: 99204

== ENCOUNTER → 2024-12-19 08:36 | Outpatient (BNVA) | payer OTHER, SELFPAY | PROVIDERS: PCP Internal Medicine; Visit Provider Registered Nurse | DX: G43.009 Migraine without aura, not intractable, without status migrainosus (principal) | CPT/HCPCS: 99202 ==

== ENCOUNTER 2024-12-25 14:19 | Emergency (ER) | payer OTHER, SELFPAY ==
--- NOTE | ~2024-12-25 | CT_ITS ---
CLINICAL HISTORY: headache CT head without contrast. COMPARISON: CT head dated 02/07/24 at 08:27 EDT FINDINGS: The visualized paranasal sinuses are clear. The mastoid air cells are clear. No calvarial fracture. No evidence for mass or mass effect. No intracranial hemorrhage or abnormal extra-axial fluid collection. Basal ganglia mineralization present on the right. No evidence of hydrocephalus. The basilar cisterns are patent. Posterior fossa appears unremarkable. IMPRESSION: 1. No acute intracranial findings. This document has been electronically signed by: Derek Philip MD on 12/25/2024 19:05:28
[2024-12-25 14:47] VITALS: BP 123/55; PULSE 76; RESP 20; TEMP 36.4; O2SAT 97; BMI 25.4
--- NOTE | 2024-12-25 14:50 | ED.GENADULT ---
HPI - General Adult General Chief complaint: Headache Stated complaint: neck pain? blurred vision Time Seen by Provider: 12/25/24 17:06 Source: patient, RN notes reviewed, old records reviewed and automotive parts interpreter Mode of arrival: ambulatory Limitations: language barrier History of Present Illness ED Provider: Jazmyn HPI narrative: 54-year-old female with a past medical history significant for chronic migraine, chronic neck pain, tendonitis, asthma, depression, hypothyroidism presents for evaluation of a headache. Patient reports that she is on week 4 of a headache. She reports that she initially was seen here last week for a temporal headache. She states that her headache now is 1 the top of her head. She also has left-sided neck pain. She reports discussing with somebody at [facility] felt that she should be ruled out for meningitis pain The patient denies any fevers, chills, respiratory symptoms. She has been taking sumatriptan with some improvement in his symptoms. She does not follow up with Neurology Denies any trauma to the head or neck She had associated nausea Denies lightheadedness Related Data Home Medications ?Medication ?Instructions ?Recorded ?Confirmed lorazepam 0.5 mg tablet 0.5 mg PO BEDTIME PRN Anxiety 03/05/20 12/19/24 omeprazole 20 mg capsule,delayed 20 mg PO DAILY 06/08/21 12/19/24 release valacyclovir 500 mg tablet 500 mg PO DAILY 01/04/22 12/19/24 diclofenac sodium 1 % topical gel topical 06/01/23 12/19/24 baclofen 10 mg tablet 10 mg PO TID 12/19/24 12/19/24 hydroxyzine HCl 25 mg tablet 25 mg PO TID PRN 12/19/24 12/19/24 Previous Rx's ?Medication ?Instructions ?Recorded albuterol sulfate 90 mcg/actuation 2 puff inhalation Q4-6H PRN 02/26/20 aerosol inhaler shortness of breath or wheezing #6.7 grams albuterol sulfate 90 mcg/actuation 2 inh inhalation Q4-6H PRN 02/23/23 breath activated powder inhaler shortness of breath or wheezing #1 ea benzonatate 100 mg capsule 100 mg PO BID PRN cough #20 caps 02/23/23 levothyroxine 112 mcg tablet 112 mcg PO DAILY #30 tabs 10/29/24 (Synthroid) naproxen 500 mg tablet (Naprosyn) 500 mg PO BID PRN pain #10 tabs 12/14/24 ondansetron 4 mg disintegrating 4 mg PO DAILY PRN nausea and 12/19/24 tablet vomiting 30 days #10 tabs sumatriptan succinate 50 mg tablet See Rx Instructions PO .COMPLEX 30 12/19/24 days #10 tabs sumatriptan succinate 50 mg tablet See Rx Instructions PO .COMPLEX 12/25/24 #20 tabs Allergies Allergy/AdvReac Type Severity Reaction Status Date / Time diphenhydramine (From Allergy Intermediate SEVERE Verified 12/25/24 14:47 BENADRYL) LETHARGY oxycodone (From Percocet) AdvReac Anxiety Verified 12/25/24 14:47 Review of Systems Constitutional: Constitutional: Denies body ache(s), Denies chills, Denies fatigue, Denies fever(s), Reports headache(s) and Denies weakness Eyes: Eyes: Reports blurry vision and Denies exophthalmos ENT: Denies vertigo, Denies dizziness and Reports headache(s) Cardiovascular: Cardiovascular: Denies chest pain, Denies syncope and Denies dyspnea on exertion Respiratory: Respiratory: Denies cough and Denies dyspnea on exertion Gastrointestinal: Gastrointestinal: Denies abdominal pain, Reports nausea and Denies vomiting Musculoskeletal: Musculoskeletal: Denies back pain and Denies tingling Integumentary/Breasts: Skin/Breast: Denies rash Neurologic: Denies vertigo, Denies dizziness, Denies syncope, Reports headache(s), Denies tingling, Denies paresthesias and Denies weakness Psychiatric: Psychiatric: Denies anxiety Endocrine: Endocrine: Denies fatigue PMFSH Past Medical History Medical History Panic attacks Asthma Depression Vitamin D deficiency Hypothyroidism Thyroid activity decreased Surgical History Hx of cervical polypectomy Hx of lithotripsy Hx of gastric bypass Family History Family History Father Leukemia Cancer Mother Diabetes mellitus Hypertension Social History Social History Household Members: Spouse Housing: Apartment Unable to assess alcohol history related to: Unknown Alcohol intake: former Comment: medicated with ketorolac and po tylenol Patient Tobacco Use Status: Never used Tobacco Smoked in Last 30 Days: No Use of substances other than those prescribed or required for medical reasons: No Advance Directives: No Advance Directives Information Provided: Yes Patient : No Current occupational status: unemployed Sexual orientation: Straight/Heterosexual Gender identity: Female Physical Exam ED Vital Signs: Vital Signs - 24 hr 12/25/24 14:47 12/25/24 17:12 12/25/24 18:55 Temperature 97.6 F 98.5 F Pulse Rate 76 66 67 Respiratory Rate 20 18 67 H Blood Pressure 123/55 L 124/69 100/45 L Pulse Oximetry 97 100 99 Oxygen Delivery Method Room Air Room Air Room Air BMI result Body Mass Index 25.4 Const General: healthy appearing, comfortable, no acute distress, alert and awake Nutritional Appearance: well nourished Orientation/consciousness: patient oriented x3 HENMT Head: Yes normocephalic and Yes atraumatic Throat: Yes posterior oropharynx normal Eyes Alignment and Position: alignment normal Periorbital: periorbital findings normal Eyelids: Yes eyelids normal Conjunctivae: conjunctivae normal Sclerae: sclerae normal Corneas: corneas normal Pupils: Equal, round and reactive pupils present EOM: EOMs intact bilaterally Direct Ophthalmoscopy: normal light reflex, no photophobia and no papilledema Neck Neck: Yes full ROM, Yes no meningeal signs, No positive Brudzinski's sign, No positive Kernig's sign and No tender Resp Effort & Inspection: normal respiratory effort, able to speak in complete sentences and not labored Cardio Rate: regular rate Rhythm: regular rhythm GI Inspection: No distended Palpation (GI): Soft to palpation, not firm, nontender, no guarding and not rigid Skin General skin exam: elasticity normal Neuro General: patient oriented x3 and no meningeal signs Cranial nerves: Yes CN's II-XII intact bilaterally, Yes Equal, round and reactive pupils present and Yes Bilaterally intact EOM present Cognition (Neuro): normal cognition Extrem Other: Moving all extremities well without any obvious deformities Course Course Course Narrative: This is a Rapid Medical Examination (RME) performed by Abelardo Cruz PA-C in triage. Full HPI, ROS, assessment and treatment plan per primary provider in the Main ED. Hx: 54 yo F here for eval of head pressure, neck pain, and blurred vision bilaterally x3 weeks. seen here in ED for same last week, discharged w/ sumatriptan which provided some relief. states when she lies down for bed at night I have a sensation that I am going to . like my sun is going to turn off . spoke with family member who is a physician who noted concern for meningitis, prompting her to come to the ED for eval. PE/vitals: well appearing Plan: labs, will defer imaging to primary provider. Medications Administered Discontinued Medications Generic Name Dose Route Start Last Admin Trade Name Freq PRN Reason Stop Dose Admin Sodium Chloride 1,000 mls @ 999 mls/hr 12/25/24 17:45 12/25/24 18:48 Ns IV 12/25/24 18:45 Infused .Q1H1M MIGUELANGEL Infusion Magnesium Sulfate/Dextrose 1 gm in 100 mls @ 100 mls/hr 12/25/24 17:36 12/25/24 18:48 Magnesium Sulfate/D5w IV 12/25/24 18:35 Infused ONCE ONE Infusion Ketorolac Tromethamine 30 mg 12/25/24 17:36 12/25/24 17:50 Ketorolac Tromethamine 30 Mg/Ml Vial IVPUSH 12/25/24 17:37 30 mg ONCE ONE Administration Metoclopramide HCl 10 mg 12/25/24 17:36 12/25/24 17:50 Metoclopramide Hcl 10 Mg/2 Ml Vial IVPUSH 12/25/24 17:37 10 mg ONCE ONE Administration Medical Decision Making Medical Decision Making MDM Narrative: 34-year-old female with past medical history as above presents for evaluation of a continued headache. She reports that she is now on week 4 of a persistent headache. There was no trauma to the head or neck. She has no neurologic deficits. Her friend did mentioned meningitis, however the patient has no clinical findings to suggest infectious positive her headaches that as meningitis or encephalitis. She has no fevers or chills, no respiratory symptoms. He has no leukocytosis. Inflammatory markers are within normal limits. She has no meningeal signs on exam. Meningitis is favored to be highly unlikely. Given that she was seen here at the end of last month, and did not have imaging we will order a CT scan of the brain. We will treat her headache with Toradol, magnesium, Reglan and IV fluids. She has an allergy or adverse reaction to Benadryl. The patient is overall quite well appearing. Differential Diagnosis Differential Diagnoses: The differential diagnosis associated with the presentation includes Migraine headache Tension headache Cluster headache Acute headache Intracranial mass Intracranial hemorrhage less likely Lab Data MDM Lab Attestation statement: I reviewed the patient's lab results. No leukocytosis or significant anemia. Normal platelet count. No significant electrolyte abnormalities warranting dimension. ESR is within normal limits at 16. Temporal artery this is favored to be less likely. CRP is also less than 0.04. 12/25/24 15:17 12/25/24 15:17 Labs: Lab Results 12/25/24 Range/Units 15:17 WBC 6.4 (4.8-10.8) X10*3/uL RBC 4.11 L (4.20-5.50) X10*6/uL Hgb 12.2 (12.0-16.0) g/dl Hct 36.2 L (37.0-47.0) % MCV 88.1 (80.0-98.0) fL MCH 29.7 (27.0-33.0) pg MCHC 33.7 (31.0-35.0) g/dl RDW 14.6 (11.0-16.0) % Plt Count 179 D (160-400) X10*3/uL MPV 10.7 (9.4-12.3) fL Immature Gran % (Auto) 0.3 (0.0-0.4) % Neut % (Auto) 65.7 (45-73) % Lymph % (Auto) 23.0 (20-40) % [place] % (Auto) 6.8 (2-11) % Eos % (Auto) 3.6 (0-4) % Baso % (Auto) 0.6 (0-2) % Lymph # (Auto) 1.5 (1.2-4.9) X10*3/uL [place] # (Auto) 0.4 (0.1-1.2) X10*3/uL Eos # (Auto) 0.2 (0.0-0.4) X10*3/uL Baso # (Auto) 0.0 (0.0-0.2) X10*3/uL Abs Immat Gran (auto) 0.02 (0.00-0.03) X10*3/uL Absolute Neuts (auto) 4.2 (2.0-8.3) x10*3/uL Absolute Nucleated RBC 0.000 (0.0-0.012) X10*3/uL Nucleated RBC % (auto) 0.0 (0.0-0.2) /100WBC ESR 16 (0-20) MM/HR Sodium 142 (135-145) mmol/L Potassium 4.4 (3.3-5.1) mmol/L Chloride 109 H (96-108) mmol/L Carbon Dioxide 25 (22-29) mmol/L Anion Gap 12 (12-20) BUN 12 (9-16) mg/dL Creatinine 0.86 (0.5-1.4) mg/dL Estim Creat Clear Calc 73.0 Estimated GFR > 60 Random Glucose 141 H (60-115) mg/dL Calcium 9.2 (8.4-10.2) mg/dL Magnesium 2.1 (1.6-2.6) mg/dL Total Bilirubin 0.3 (0.0-1.0) mg/dL AST 24 (5-31) U/L ALT 8 (0-31) U/L Alkaline Phosphatase 131 H (39-117) U/L C-Reactive Protein < 0.04 (< or = 0.50) mg/dL Total Protein 6.9 (6.5-8.0) g/dL Albumin 4.2 (3.5-5.0) g/dL Independent Interpretation I performed an independent interpretation of an: CT Scan (Agree with Radiology interpretation, no obvious intracranial hemorrhage) Radiology Impression Discussion of test interpretation with radiology: I have reviewed the radiologist's reading. Radiologist Impression: FINDINGS: The visualized paranasal sinuses are clear. The mastoid air cells are clear. No calvarial fracture. No evidence for mass or mass effect. No intracranial hemorrhage or abnormal extra-axial fluid collection. Basal ganglia mineralization present on the right. No evidence of hydrocephalus. The basilar cisterns are patent. Posterior fossa appears unremarkable. IMPRESSION: 1. No acute intracranial findings. This document has been electronically signed by: Derek Philip MD on 12/25/2024 19:05:28 Tests considered The following testing was considered but not selected: Consider lumbar puncture, but ultimately the exam is reassuring, the patient has no objective findings to suggest meningitis. Discharge Plan Discharge Clinical Impression: Headache, Migraine Patient Disposition: Home, Self-Care Instructions: Acute Headache (ED) Additional Instructions: Your workup in the ER today was reassuring. This includes your blood work, CT scan. You may continue to use sumatriptan if it helped her headaches. Follow up with Neurology at the number provided. Return for new or worsening symptoms Prescriptions: New sumatriptan succinate 50 mg tablet See Rx Instructions .ROUTE .COMPLEX Qty: 20 0RF Rx Instructions: take 1 tab at onset of headache; if no relief may repeat 1 tab after at least 2 hrs; max = 4 tabs/24 hr No Action levothyroxine [Synthroid] 112 mcg tablet 112 mcg PO DAILY Qty: 30 5RF albuterol sulfate 90 mcg/actuation HFA aerosol inhaler 2 puff inhalation Q4-6H PRN (Reason: shortness of breath or wheezing) Qty: 6.7 0RF albuterol sulfate 90 mcg/actuation aerosol powdr breath activated 2 inh inhalation Q4-6H PRN (Reason: shortness of breath or wheezing) Qty: 1 0RF benzonatate 100 mg capsule 100 mg PO BID PRN (Reason: cough) Qty: 20 0RF naproxen [Naprosyn] 500 mg tablet 500 mg PO BID PRN (Reason: pain) Qty: 10 0RF lorazepam 0.5 mg tablet 0.5 mg PO BEDTIME PRN (Reason: Anxiety) omeprazole 20 mg capsule,delayed release(DR/EC) 20 mg PO DAILY valacyclovir 500 mg tablet 500 mg PO DAILY baclofen 10 mg tablet 10 mg PO TID hydroxyzine HCl 25 mg tablet 25 mg PO TID PRN sumatriptan succinate 50 mg tablet See Rx Instructions PO .COMPLEX 30 Days Qty: 10 5RF Rx Instructions: take 1 tab at onset of headache; if no relief may repeat 1 tab after at least 2 hrs; PO ondansetron 4 mg tablet,disintegrating 4 mg PO DAILY PRN (Reason: nausea and vomiting) 30 Days Qty: 10 5RF diclofenac sodium 1 % gel topical Referrals: [facility] Neuro/Sleep [Provider Group] Referral Note: chronic headaches Print Language: Pashto
[2024-12-25 15:24] LABS: MANUAL DIFF FLAG NO
[2024-12-25 15:26] LABS: Hematocrit 36.2 % (37.0-47.0); Hemoglobin 12.2 g/dl (12.0-16.0); Imm Gran Abs Auto 0.02 X10*3/uL (0.00-0.03); Imm Gran Pct Auto 0.3 % (0.0-0.4); Lymphocytes Absolute Auto 1.5 X10*3/uL (1.2-4.9); Mean Corpuscular HGB Conc 33.7 g/dl (31.0-35.0); Mean Corpuscular Hemoglobin 29.7 pg (27.0-33.0); Mean Corpuscular Volume 88.1 fL (80.0-98.0); NRBC Abs Auto 0.000 X10*3/uL (0.0-0.012); NRBC Pct Auto 0.0 /100WBC (0.0-0.2); Platelet Count 179 X10*3/uL (160-400); Red Blood Count 4.11 X10*6/uL (4.20-5.50); White Blood Count 6.4 X10*3/uL (4.8-10.8)
[2024-12-25 15:45] LABS: Alanine Aminotransferase 8 U/L (0-31); Albumin Level 4.2 g/dL (3.5-5.0); Alkaline Phosphatase 131 U/L (39-117); Anion Gap 12 (12-20); Aspartate Amino Transferase 24 U/L (5-31); Blood Urea Nitrogen 12 mg/dL (9-16); Calcium 9.2 mg/dL (8.4-10.2); Carbon Dioxide 25 mmol/L (22-29); Chloride 109 mmol/L (96-108); Creatinine Clr Calc Pharmacy 73.0; Estimated Glomerular Filt Rate > 60; Magnesium 2.1 mg/dL (1.6-2.6); Potassium 4.4 mmol/L (3.3-5.1); Sodium 142 mmol/L (135-145); Total Protein 6.9 g/dL (6.5-8.0)
[2024-12-25 17:12] VITALS: BP 124/69; PULSE 66; RESP 18; O2SAT 100
--- NOTE | 2024-12-25 17:14 | PC.NURSE ---
54 F presents to ED with h/a for a few weeks, neck pain x 4 days, nausea, and blurred vision that started yesterday. Pt was seen here recently for headache, was on migraine meds but they ran out and pt was unable to make pcp appointment d/t PCP not calling back. A+OX4, calm, cooperative. RR even and unlabored, denies CP or SOB.
--- OUTSIDE RECORDS SUMMARY | 2024-12-25 18:47 | XMS_ITS | Encounter Summary ---
Author Organization [employer] Address [address] [place] [address] Care Team Providers Care Dope Worker Name Role Phone Adriana Palencia MD Primary Care Provide r Encounter Details Date Type Department Care Team (Late st Contact Info) Description 12/25/2024 Orders Only GENERIC EXTERNAL DATA DEPARTMENT Provider, Generic External Data Social History Tobacco Use Types Packs/Day Years [...] your housing situation today? I have jasvir sing 12/09/[address] you li [...] Procedure Name Priority Date/Time Associated Diagnosis Comments CBC WITH AUTO DIFFERENTIAL Routine 12/25/2024 3:17 PM EDT SED RATE BY MODIFIED WESTERGREN Routine 12/25/2024 3:17 PM EDT C-REACTIVE PROTEIN Routine 12/25/2024 3: 17 PM EDT MAGNESIUM Routine 12/25/2024 3:17 PM EDT COMPREHENSIVE METABOLIC PANEL Routine 12/25/2024 3:17 PM EDT documented in this encounter Results * Sed Rate by Modified Westergren (12/25/2024 3:17 PM EDT) Erythrocyte Sedimentation Rate 16 0 - 20 MM/HR [facility] Comment:Patients with polycy themia and many hemoglobin abnormalitiesmay have depressed sed rates whereas patients with anemiamay have elevated sed rates. 12/25/2024 3:17 PM EDT 12/25/2024 3:23 PM EDT us Generic External Data Provider LAB BLOOD ORDERAB LES Final Result [facility] [address] [place] [phone] * C-reactive Protein (12/25/2024 3:17 PM EDT) Pathologist [facility] C Reactive Protein <0.04 < or = 0.50 mg/dL [facility] 12/25/2024 3:17 PM EDT 12/25/2024 3:23 PM EDT Generic External Data Provider LAB BLOOD ORDERAB LES Final Result Performing Organization Address [facility] Co de Phone Number [facility] [address] [place] [phone] * Magnesium (12/25/2024 3:17 PM EDT) [facility] Magnesium 2.1 1.6 - 2.6 mg/dL [facility] 12/25/2024 3:17 PM EDT 12/25/2024 3:23 PM EDT [employer] External Data Provider LAB BLOOD ORDERAB LES Final Result Performing Organization Address [facility] de Phone Number [facility] [address] [place] [phone] * (ABNORMAL) Comprehensive Metabolic Panel (12/25/2024 3:17 PM EDT) [facility] Sodium 142 135 - 145 mmol/L [facility] Potassium 4.4 3.3 - 5.1 mmol/L [facility] Chloride 109(H) 96 - 108 mmol/L [facility] Carbon Dioxide 25 22 - 29 mmol/L [facility] Anion Gap 12 12 - 20 [facility] Urea Nitrogen (BUN) 12 9 - 16 mg/dL [facility] Creatinine, Serum 0.86 0.5 - 1.4 mg/dL [facility] Creatinine Clr Calc Pharmacy 73.0 [facility] Comment:Provided height and weight: 165.1 cm,69.2 kg.eGFR (calculated from the MDRD study equation) and eCrCl(calculated from the Cockcroft-Gault equation) are based ondifferent parameters and may not yield comparable results.If eCrCl result is absurd, please check patient'sheight/weight. Estimated Glomerular Filt Rate >60 [facility] Comment:Chronic Kidney Disea se: Estimated GFR < 60 mL/min/[id number] Kidney Disease: Estimated GFR < 15 mL/min/1.73m2 Glucose 141(H) 60 - 115 mg/dL [facility] Calcium 9.2 8.4 - 10.2 mg/dL [facility] Bilirubin, Total 0.3 0.0 - 1.0 mg/dL [facility] Aspartate Amino Transferase 24 5 - 31 U/L [facility] Alanine Aminotransferase 8 0 - 31 U/L [facility] Total Protein 6.9 6.5 - 8.0 g/dL [facility] Albumin Level 4.2 3.5 - 5.0 g/dL [facility] Alkaline Phosphatase 131(H) 39 - 117 U/L [facility] 12/25/2024 3:17 PM EDT 12/25/2024 3:23 PM EDT us Generic External Data Provider LAB BLOOD ORDERAB LES Final Result [facility] [address] [place] [phone] * (ABNORMAL) CBC auto differential (12/25/2024 3:17 PM EDT) White Blood Count 6.4 4.8 - 10.8 X10*3/uL [facility] Red Blood Count 4.11(L) 4.20 - 5.50 X10*6/uL [facility] Hemoglobin 12.2 12.0 - 16.0 g/dl [facility] Hematocrit 36.2(L) 37.0 - 47.0 % [facility] Mean Corpuscular Volume 88.1 80.0 - 98.0 fL [facility] Mean Corpuscular Hemoglobin 29.7 27.0 - 33.0 pg [facility] Mean Corpuscular HGB Conc 33.7 31.0 - 35.0 g/dl [facility] Red Cell Distribution Width 14.6 11.0 - 16.0 % [facility] Platelet Count 179 160 - 400 X10*3/uL [facility] Mean Platelet Volume 10.7 9.4 - 12.3 fL [facility] Neutrophils Percent Auto 65.7 45 - 73 % [facility] Imm Gran Pct Auto 0.3 0.0 - 0.4 % [facility] Lymphocytes Percent Auto 23.0 20 - 40 % [facility] Monocytes Percent Auto 6.8 2 - 11 % [facility] Eosinophils Percent Auto 3.6 0 - 4 % [facility] Basophils Percent Auto 0.6 0 - 2 % [facility] NRBC Pct Auto 0.0 0.0 - 0.2 /100WBC [facility] Neutrophils Absolute Auto 4.2 2.0 - 8.3 x10*3/uL [facility] Imm Gran Abs Auto 0.02 0.00 - 0.03 X10*3/uL [facility] Lymphocytes Absolute Auto 1.5 1.2 - 4.9 X10*3/uL [facility] Monocytes Absolute Auto 0.4 0.1 - 1.2 X10*3/uL [facility] Eosinophils Absolute Auto 0.2 0.0 - 0.4 X10*3/uL [facility] Basophils Absolute Auto 0.0 0.0 - 0.2 X10*3/uL [facility] NRBC Abs Auto 0.000 0.0 - 0.012 X10*3/uL [facility] 12/25/2024 3:17 PM EDT 12/25/2024 3:23 PM EDT us Generic External Data Provider LAB BLOOD ORDERAB LES Final Result [facility] [address] [place] [phone] documented in this encounter Visit Diagnoses Not on filedocumented in this encounter Additional Health Concerns Assessment Noted Time PHQ-9 Depression Total Score: 8 12/10/19 25 3:38 PM EDT documented as of this encounter Care Teams Dope Worker Relationship Specialty Start Date End Date Adriana Palencia MD [address] [place] [phone] PCP - General Family Medicine 06/01/18 documented as of this encounter
--- OUTSIDE RECORDS SUMMARY | 2024-12-25 18:48 | XMS_ITS | Clinical Summary ---
Author Organization [facility] Address [address] [place] [address] Phone Care Team Providers Care Apprentice Painter Neckties Name Role Phone Maribel Garcia XANDER Primary Care Provider [phone] Allergies No known active allergies Medications No [...] patient's age to complete this topic Insurance [place] [address] MEDICARE Member Subscriber Plan / Payer (Ef fective 2024-Present) Name:Sudha Dean Relation to Subscriber:Self Name:Sudha Dean Payer ID:[id number] Group ID:Not on file Type:Not on file Address: [address] [id number] Care Teams Apprentice Painter Neckties Relationship Specialty Start Date End Date Maribel Garcia FNP PCP - General Internal Medicine 04/11/13
--- OUTSIDE RECORDS SUMMARY | 2024-12-25 18:48 | XMS_ITS | Encounter Summary ---
Author Organization [employer] Address [address] [place] [address] [address] [place] [address] Care Team Providers Care Flat Surfacer Jewel Name Role Phone Adriana Palencia MD Primary Care Provide r Reason for Visit * Reason Comments Med Refill Encounter Details Date Type Department Care Team (Late st Contact Info) Description 11/02/2022 Refill [facility] [address] [place] [address] Lilia Mcgregor FNP Social History Tobacco Use [...] documented as of this encounter Care Teams Flat Surfacer Jewel Relationship Specialty Start Date End Date Adriana Palencia MD [address] [place] [address] PCP - General Family Medicine 06/01/18 documented as of this encounter
--- OUTSIDE RECORDS SUMMARY | 2024-12-25 18:48 | XMS_ITS | Encounter Summary ---
Author Organization [employer] Address [address] [place] [address] [address] [place] [address] Care Team Providers Care Galvanizing Pot Runner Name Role Phone Adriana Palencia MD Primary Care Provide r Reason for Visit * Reason Comments Med Refill Encounter Details Date Type Department Care Team ([facility] st Contact Info) Description 10/31/2022 Refill [facility] [address] [place] [address] Adriana Palencia MD [address] [place] [address] Social History Tobacco Use Types Packs/Day Years [...] documented as of this encounter Care Teams Galvanizing Pot Runner Relationship Specialty Start Date End Date Adriana Palencia MD [address] [place] [address] PCP - General Family Medicine 06/01/18 documented as of this encounter
--- OUTSIDE RECORDS SUMMARY | 2024-12-25 18:48 | XMS_ITS | Encounter Summary ---
Author Organization [employer] Address [address] [place] [address] Care Team Providers Care Senior Physician Name Role Phone Adriana Palencia MD Primary Care Provide r Reason for Visit * Reason Comments Med Refill Encounter Details Date Type Department Care Team ([facility] st Contact Info) Description 07/29/2024 Refill [facility] [address] [place] [address] Adriana Paelncia MD [address] [place] [address] Class 1 obesity due to excess calories [...] documented as of this encounter Care Teams Senior Physician Relationship Specialty Start Date End Date Adriana Palencia MD [address] [place] [address] PCP - General Family Medicine 06/01/18 documented as of this encounter
--- OUTSIDE RECORDS SUMMARY | 2024-12-25 18:48 | XMS_ITS | Encounter Summary ---
Author Organization [employer] Address [address] 7t [place] [address] Care Team Providers Care Mitten Sewer Name Role Phone Adriana Palencia MD Primary Care Provide r Encounter Details Date Type Department Care Team ([facility] st Contact Info) Description 03/14/2023 Abstract [facility] MEDICINE [address] [place] [address] Eliane Raman Social History Tobacco Use Types [...] documented as of this encounter Care Teams Mitten Sewer Relationship Specialty Start Date End Date Adriana Palencia MD [address] [place] [id number] PCP - General Family Medicine 06/01/18 documented as of this encounter
--- OUTSIDE RECORDS SUMMARY | 2024-12-25 18:48 | XMS_ITS | Encounter Summary ---
Author Organization [employer] Address [address] [place] [address] 7 [place] [address] Care Team Providers Care Utility Aide Name Role Phone Adriana Palencia MD Primary Care Provide r Reason for Visit * Reason Comments Med Refill Encounter Details Date Type Department Care Team ([facility] st Contact Info) Description 01/10/[address] [facility] MEDICINE [address] [place] [address] Adriana Palencia MD [address] [place] [address] Social History Tobacco Use Types Packs/Day Years [...] documented as of this encounter Care Teams Utility Aide Relationship Specialty Start Date End Date Adriana Palencia MD [address] [place] [address] PCP - General Family Medicine 06/01/18 documented as of this encounter
--- OUTSIDE RECORDS SUMMARY | 2024-12-25 18:48 | XMS_ITS | Encounter Summary ---
Author Organization [employer] Address [address] [facility] 7 [place] [address] Care Team Providers Care Vat Washer Name Role Phone Adriana Palencia MD Primary Care Provide r Reason for Visit * Reason Comments Med Refill Encounter Details Date Type Department Care Team ([facility] st Contact Info) Description 12/02/2022 Refill [facility] MEDICINE [address] [place] [address] Bree Ag MD [address] [place] [address] Generalized anxiety disorder Social History Tobacco Use [...] documented as of this encounter Care Teams Vat Washer Relationship Specialty Start Date End Date Adriana Palencia MD [address] [place] [address] PCP - General Family Medicine 06/01/18 documented as of this encounter
--- OUTSIDE RECORDS SUMMARY | 2024-12-25 18:48 | XMS_ITS | Encounter Summary ---
Author Organization [email or web address] Address [address] [place] [address] 7t [place] [address] Care Team Providers Care Medical Scheduler Name Role Phone Adriana Palencia MD Primary Care Provide r Encounter Details Date Type Department Care Team (Late st Contact Info) Description 03/17/2022 Abstract [facility] MEDICINE [address] [place] [address] ProviderGurvinder MD Social History Tobacco Use Types [...] on filedocumented in this encounter Care Teams Medical Scheduler Relationship Specialty Start Date End Date Adriaan Palencia MD [address] [place] [address] PCP - General Family Medicine 06/01/18 documented as of this encounter
--- OUTSIDE RECORDS SUMMARY | 2024-12-25 18:48 | XMS_ITS | Encounter Summary ---
Author Organization [email or web address] Address [address] [facility] 7t [place] [address] Care Team Providers Care Ice Handler Name Role Phone Adriana Palencia MD Primary Care Provide r Reason for Visit * Reason Comments Med Change Request Encounter Details Date Type Department Care Team ([facility] st Contact Info) Description 09/10/2024 Refill [facility] MEDICINE [address] [place] [address] Adriana Palencia MD [address] [place] [address] Class 1 obesity due to excess calories [...] documented as of this encounter Care Teams Ice Handler Relationship Specialty Start Date End Date Adriana Palencia MD [address] [place] [address] PCP - General Family Medicine 06/01/18 documented as of this encounter
--- OUTSIDE RECORDS SUMMARY | 2024-12-25 18:48 | XMS_ITS | Encounter Summary ---
Author Organization [employer] Address [address] [facility] 7 [place] [address] Care Team Providers Care Bass Fisher Name Role Phone Adriana Palencia MD Primary Care Provide r Reason for Visit * Reason Onset Date Comments Letter Needed 04/18/2023 Encounter Details Date Type Department Care Team ([facility] st Contact Info) Description 04/18/2023 Telephone [facility] MEDICINE [address] [place] [address] Adriana Palencia MD [address] [place] [address] Letter Needed Social History Tobacco Use Types [...] causing herasthma attacks. Please contact pt @ [phone] [place] Speaker documented in this encounter Plan of Treatment Not on file documented as of this encounter Visit Diagnoses Not on filedocumented in this encounter Additional Health Concerns Assessment Noted Time PHQ-9 Depression Total Score: 14 023 3:05 PM EDT documented as of this encounter Care Teams Bass Fisher Relationship Specialty Start Date End Date Adriana Palencia MD [address] [place] [id number] PCP - General Family Medicine 06/01/18 documented as of this encounter
--- OUTSIDE RECORDS SUMMARY | 2024-12-25 18:48 | XMS_ITS | Encounter Summary ---
Author Organization [employer] Address [address] [facility] 7 [place] [address] Care Team Providers Care Machine Welt Butter Name Role Phone Adriana Palencia MD Primary Care Provide r Reason for Visit * Reason Comments Med Refill Encounter Details Date Type Department Care Team ([facility] st Contact Info) Description 08/31/2023 Refill [facility] MEDICINE [address] [place] [address] Adriana Palencia MD [address] [place] [address] Gastroesophageal reflux disease without esophagitis Social History [...] documented as of this encounter Care Teams Machine Welt Butter Relationship Specialty Start Date End Date Adriana Palencia MD [address] [place] [id number] PCP - General Family Medicine 06/01/18 documented as of this encounter
--- OUTSIDE RECORDS SUMMARY | 2024-12-25 18:48 | XMS_ITS | Encounter Summary ---
Author Organization [employer] Address [address] [facility] 7 [place] [address] Care Team Providers Care Boiler Testing Technician Name Role Phone Adriana Palencia MD Primary Care Provide r Reason for Visit * Reason Onset Date Comments Med Refill 05/21/2024 Encounter Details Date Type Department Care Team ([facility] st Contact Info) Description 05/21/2024 Telephone [facility] MEDICINE [address] [place] [address] Adriana Palencia MD [address] [place] [address] Med Refill Social History Tobacco Use Types [...] MG/0.5ML solution auto-injector To be sent to: [facility]/pharmacy #[id number] [place], [place] - [address] [place] [address] documented in this encounter Plan of Treatment Not on file documented as of this encounter Visit Diagnoses Not on filedocumented in this encounter Additional Health Concerns Assessment Noted Time PHQ-9 Depression Total Score: 15 024 9:44 AM EST documented as of this encounter Care Teams Boiler Testing Technician Relationship Specialty Start Date End Date Adriana Palencia MD [address] [place] [address] PCP - General Family Medicine 06/01/18 documented as of this encounter
--- OUTSIDE RECORDS SUMMARY | 2024-12-25 18:48 | XMS_ITS | Clinical Summary ---
Author Organization [employer] Address [address] [place] [address] 7[address] [place] [address] Care Team Providers Care Cash Applications Representative Name Role Phone Adriana Palencia MD Primary [...] hours. Active ergocalciferol (Vitamin D-2) 1.25 MG (31481 UT) capsule take 1 capsule by oral [...] every 6 (six) hours. Active Lactobacillus-Inu kristen ([facility]) capsule take 1 capsule 2 times a [...] life style modifications, diet and referral to petroleum supply specialist. Recommended to decrease soda and sugary [...] Encounters Date Type Department Care Team Description 12/25/2024 Orders Only GENERIC EXTERNAL DATA DEPARTMENT Provider, Generic External Data 12/09/2024 3:30 PM EDT Office Visit [facility] [address] [place] [address] [phone] Manju Jennings NP Gastroesophageal reflux disease, unspecified whether esophagitis present (Primary Dx) 12/09/2024 Travel 12/07/2024 Refill [facility] [address] [place] [address] [phone] Adriana Palencia MD 12/06/2024 Telephone [facility] [address] [place] [address] [phone] Bree Ag MD No Show 12/05/2024 Telephone [facility] [address] [place] [address] [phone] Adriana Palencia MD Chart Prep 12/03/2024 Travel 12/02/2024 Telephone [facility] [address] [place] [address] [phone] Adriana Palencia MD Nurse Triage 11/25/2024 11:00 AM EDT Office Visit [facility] [address] [place] [address] [phone] Harsha Rees MD Gastroesophageal reflux disease, unspecified whether esophagitis present (Primary Dx) 11/15/2024 Telephone [facility] [address] [place] [address] [phone] Adriana Palencia MD Nurse Triage 11/14/2024 Refill [facility] [address] [place] [address] [phone] Adriana Palencia MD Muscle spasm; Pain 11/12/2024 Refill [facility] [address] [place] [address] [phone] Adriana Palencia MD Fibromyalgia 11/07/2024 Refill [facility] [address] [place] [address] [phone] Adriana Palencia MD Mild intermittent asthma, unspecified whether complicated 10/26/2024 Orders Only [facility] External Provider, [facility] 10/25/2024 Orders Only GENERIC EXTERNAL DATA DEPARTMENT Provider, Generic External Data 10/09/2024 Refill [facility] [address] [place] [address] Adriana Palencia MD Fibromyalgia 10/08/2024 Orders Only [facility] External Provider, [facility] 10/04/2024 Telephone [facility] [address] [place] [address] Adriana Palencia MD Lab Orders (/) from [...] Procedure Name Priority Date/Time Associated Diagnosis Comments SED RATE BY MODIFIED WESTERGREN Routine 12/25/2024 3:17 PM EDT C-REACTIVE PROTEIN Routine 12/25/2024 3: 17 PM EDT MAGNESIUM Routine 12/25/2024 3:17 PM EDT COMPREHENSIVE METABOLIC PANEL Routine 12/25/2024 3:17 PM EDT CBC WITH AUTO DIFFERENTIAL Routine 12/25/2024 3:17 PM EDT MR SHOULDER WO CONTRAST RIGHT Routine 10/29/2024 [...] Recently Relevant to Health Maintenance Results * (ABNORMAL) CBC auto differential (12/25/2024 3:17 PM EDT) White Blood Count 6.4 4.8 - 10.8 X10*3/uL [facility] Red Blood Count 4.11(L) 4.20 - 5.50 X10*6/uL [facility] Hemoglobin 12.2 12.0 - 16.0 g/dl [facility] Hematocrit 36.2(L) 37.0 - 47.0 % [facility] Mean Corpuscular Volume 88.1 80.0 - 98.0 fL [facility] Mean Corpuscular Hemoglobin 29.7 27.0 - 33.0 pg [facility] Mean Corpuscular HGB Conc 33.7 31.0 - 35.0 g/dl [facility] Red Cell Distribution Width 14.6 11.0 - 16.0 % [facility] Platelet Count 179 160 - 400 X10*3/uL [facility] Mean Platelet Volume 10.7 9.4 - 12.3 fL [facility] Neutrophils Percent Auto 65.7 45 - 73 % [facility] Imm Gran Pct Auto 0.3 0.0 - 0.4 % [facility] Lymphocytes Percent Auto 23.0 20 - 40 % [facility] Monocytes Percent Auto 6.8 2 - 11 % [facility] Eosinophils Percent Auto 3.6 0 - 4 % [facility] Basophils Percent Auto 0.6 0 - 2 % [facility] NRBC Pct Auto 0.0 0.0 - 0.2 /100WBC [facility] Neutrophils Absolute Auto 4.2 2.0 - 8.3 x10*3/uL [facility] Imm Gran Abs Auto 0.02 0.00 - 0.03 X10*3/uL [facility] Lymphocytes Absolute Auto 1.5 1.2 - 4.9 X10*3/uL [facility] Monocytes Absolute Auto 0.4 0.1 - 1.2 X10*3/uL [facility] Eosinophils Absolute Auto 0.2 0.0 - 0.4 X10*3/uL [facility] Basophils Absolute Auto 0.0 0.0 - 0.2 X10*3/uL [facility] NRBC Abs Auto 0.000 0.0 - 0.012 X10*3/uL [facility] 12/25/2024 3:17 PM EDT 12/25/2024 3:23 PM EDT Generic External Data Provider LAB BLOOD ORDERAB LES Final Result Performing Organization Address [facility] [[email or web address]] Co de Phone Number [facility] [address] [place] [address] [phone] * Sed Rate by Modified Justinergren (12/25/2024 3:17 PM EDT) Erythrocyte Sedimentation Rate 16 0 - 20 MM/HR [facility] Comment:Patients with polycy themia and many hemoglobin abnormalitiesmay have depressed sed rates whereas patients with anemiamay have elevated sed rates. 12/25/2024 3:17 PM EDT 12/25/2024 3:23 PM EDT Generic External Data Provider LAB BLOOD ORDERAB LES Final Result Performing Organization Address [facility] Phone Number [facility] [address] [place] [address] [phone] * C-reactive Protein (12/25/2024 3:17 PM EDT) Pathologist [facility] C Reactive Protein <0.04 < or = 0.50 mg/dL [facility] 12/25/2024 3:17 PM EDT 12/25/2024 3:23 PM EDT Generic External Data Provider LAB BLOOD ORDERAB LES Final Result Performing Organization Address [facility] [[email or web address]] Co de Phone Number [facility] [address] [place] [address] [phone] * Magnesium (12/25/2024 3:17 PM EDT) Magnesium 2.1 1.6 - 2.6 mg/dL [facility] 12/25/2024 3:17 PM EDT 12/25/2024 3:23 PM EDT us Generic External Data Provider LAB BLOOD ORDERAB LES Final Result [facility] [address] [place] [address] [phone] * (ABNORMAL) Comprehensive Metabolic Panel (12/25/2024 3:17 PM EDT) Sodium 142 135 - 145 mmol/L [facility] Potassium 4.4 3.3 - 5.1 mmol/L [facility] Chloride 109(H) 96 - 108 mmol/L [facility] Carbon Dioxide 25 22 - 29 mmol/L [facility] Anion Gap 12 12 - 20 [facility] Urea Nitrogen (BUN) 12 9 - 16 mg/dL [facility] Creatinine, Serum 0.86 0.5 - 1.4 mg/dL [facility] Creatinine Clr Calc Pharmacy 73.0 [facility] Comment:Provided height and weight: 165.1 cm,69.2 kg.eGFR (calculated from the MDRD study equation) and eCrCl(calculated from the Cockcroft-Gault equation) are based ondifferent parameters and may not yield comparable results.If eCrCl result is absurd, please check patient'sheight/weight. Estimated Glomerular Filt Rate >60 [facility] Comment:Chronic Kidney Disea se: Estimated GFR < 60 mL/min/1.26r1Cvhvth Kidney Disease: Estimated GFR < 15 mL/min/1.73m2 Glucose 141(H) 60 - 115 mg/dL [facility] Calcium 9.2 8.4 - 10.2 mg/dL [facility] Bilirubin, Total 0.3 0.0 - 1.0 mg/dL [facility] Aspartate Amino Transferase 24 5 - 31 U/L [facility] Alanine Aminotransferase 8 0 - 31 U/L [facility] Total Protein 6.9 6.5 - 8.0 g/dL [facility] Albumin Level 4.2 3.5 - 5.0 g/dL [facility] Alkaline Phosphatase 131(H) 39 - 117 U/L [facility] 12/25/2024 3:17 PM EDT 12/25/2024 3:23 PM EDT us Generic External Data Provider LAB BLOOD ORDERAB LES Final Result Performing Organization Address City/State/[facility] [[email or web address]] Co de Phone Number [facility] [address] [place] [address] [phone] * MR Shoulder w/o Contrast Right (10/29/2024 8:24 PM EDT) Anatomical Region Laterality Modality Upper Extremities, Shoulder Right Magn etic Resonance 10/29/2024 8:24 PM EDT Narrative 10/29/2024 8:26 PM EDT [address] [address] Magnetic Resonance Report Signed Patient: Sudha Dean MR#: [id number] : 1970 Acct:[id number] Age/Sex: 54 / F ADM Date: 10/26/24 Loc: HO.MRI Attending Dr: Kane Downey MD Ordering Physician: Kane Downey MD Date of Service: 10/26/24 Procedure(s): MR shoulder RT wo con Accession Number(s): [id number] cc: Adriana Palencia MD; Kane Downey MD [...] MD Signed By: <Electronically signed by Robbie Shau MD in OV> 10/29/242024 DD/ 23 TD/TT: 10/29/242023 Student Assistant: Procedure Note Francheskater, Image - 10/29/2024 [place] [address] Magnetic Resonance Report Signed Patient: Sudha Dean NMR#: [id number] : 1970Acct:[id number] Age/Sex: 54 / FADM Date: 10/26/24 Loc: HO.MRI Attending Dr: Kane Downey MD Ordering Physician: Kane Downey MD Date of Service: 10/26/24 Procedure(s): MR shoulder RT wo con Accession Number(s): [id number] cc: Adriana Palencia MD; Kane Downey MD [...] in OV> 10/29/242024 DD/ 23 TD/TT: 10/29/242023 Student Assistant: [facility] External Provider IMG MRI PROCEDURES Final Result * (ABNORMAL) TSH (10/25/2024 10:54 AM EDT) Thyroid Stimulating Hormone 0.06(L) 0.32 - 4.0 uIU/mL [facility] Comment:TSH 3rd Generation ( [facility]) 10/25/2024 10:5 4 AM EDT 10/25/2024 10:54 AM EDT Generic External Data Provider LAB BLOOD ORDERAB LES Final Result Performing Organization Address [facility] [[email or web address]] Co de Phone Number [facility] [address] [place] [address] [phone] * T4, Free (10/25/2024 10:54 AM EDT) Free T4 (Free Thyroxine) 1.17 0.71 - 1.85 ng/dL [facility] 10/25/2024 10:5 4 AM EDT 10/25/2024 10:54 AM EDT Generic External Data Provider LAB BLOOD ORDERAB LES Final Result Performing Organization Address [facility] de Phone Number [facility] [address] [place] [address] [phone] * MR Humerus w/o Contrast Right (10/08/2024 1:30 PM EDT) Anatomical Region Laterality Modality Upper Extremities, Humerus Right Magne tic Resonance 10/08/2024 1:30 PM EDT Narrative 10/08/2024 2:25 PM EDT [address] [address] Magnetic Resonance Report Signed Patient: Sudha Dean MR#: [id number] : 1970 Acct:[id number] Age/Sex: 54 / F ADM Date: 10/08/24 Loc: HO.MRI Attending Dr: Kane Downey MD Ordering Physician: Kane Downey MD Date of Service: 10/08/24 Procedure(s): MR humerus RT wo con Accession Number(s): [id number] cc: Adriana Palencia MD; Kane Downey MD [...] 10/08/24 1422 DD/ 1330 TD/TT: 10/08/24 1400 Student Assistant: Procedure Note Donotuseinterpreter, Image - 10/08/[address] [address] Magnetic Resonance Report Signed Patient: Sudha Dean [facility]#: [id number] : 1970Acct:[id number] Age/Sex: 54 / FADM Date: 10/08/24 Loc: HO.MRI Attending Dr: Kane Downey MD Ordering Physician: Kane Downey MD Date of Service: 10/08/24 Procedure(s): MR humerus RT wo con Accession Number(s): [id number] cc: Adriana Palencia MD; Kane Downey MD [...] 10/08/24 1422 DD/ 1330 TD/TT: 10/08/24 1400 Student Assistant: [facility] External Provider IMG MRI PROCEDURES Final Result * BI Mammogram Screening Tomosynthesis Bilateral (02/22/2024 8:40 AM EST) Anatomical Region Laterality Modality Breast Bilateral Mammography 02/22/2024 8:40 AM EST Narrative 03/01/2024 4:10 PM EST [facility] [address] [place] [address] Mammography Report Signed Patient: Sudha Dean MR#: [id number] : 1970 Acct:[id number] Age/Sex: 54 / F ADM Date: 02/22/24 Loc: HO.MAMMO Attending Dr: Adriana Sanches MD Ordering Physician: Adriana Palencia MD Results: 1Negative Date of Service: 02/22/24 Follow Up: 1 Year From Orig inal Mammogram Procedure(s): MM tomosynthesis screening BI Accession Number(s): [id number] cc: Adriana Palencia MD EXAMINATION: MM SCREENING [...] 04:07 PM [facility] Dictated By: Rachana Pablo DO Signed By: <Electronically signed by Rachana Pablo DO in OV> 03/01/24 1607 DD/ 0840 TD/TT: 02/22/24 0903 Student Assistant: Procedure Note Donotuseinterpreter, Image - 03/01/2024 [facility] [address] [place] [address] Mammography Report Signed Patient: Sudha Dena [facility]#: [id number] : 1970Acct:[id number] Age/Sex: 54 / FADM Date: 02/22/24 Loc: JASKARAN Attending Dr: Adriana Sanches MD Ordering Physician: Adriana Palencia MDResults: 1Negative Date of Service: 02/22/24Follow Up: 1 Year From Orig ina Mammogram Procedure(s): MM tomosynthesis screening BI Accession Number(s): [id number] cc: Adriana Palencia MD EXAMINATION: MM SCREENING [...] 03/01/24 1607 DD/ 0840 TD/TT: 02/22/24 0903 Student Assistant: Adriana Sanches MD IMG BI PROCEDURES Fin al Result * (ABNORMAL) Lipid Panel with Reflex to Direct LDL (12/13/2023 12:18 PM EDT) Triglycerides 52 <150 mg/dL [facility] Comment:Desirable Triglyceri de: less than 150 mg/dLBorderline High Triglyceride 150-199 mg/dLHigh Triglyceride: 200-499 mg/dLVery High Triglyceride: greater than or equal to 5OO mg/dL Cholesterol 187 <200 mg/dL [facility] Comment:Desirable Cholestero l: less than 200 mg/dLBorderline High Cholesterol: 200-239 mg/dLHigh Cholesterol: greater than 239 mg/dL LDL Cholesterol Calculated 109(H) <100 mg/dL [facility] Comment:Desirable LDL: less than 100 mg/dLNear Optimal/Above Optimal LDL: 110- 129 mg/dLBorderline High LDL: 130-159 mg/dLHigh LDL: 160-189 mg/dLVery High LDL: greater than or equal to 190 mg/dL HDL Cholesterol 68 >40 mg/dL [facility] Comment:Desirable HDL: great er than 40 mg/dL Note: This HDL assay may give artificially low results in patients with liver disease. Blood 12/13/2023 12:1 8 PM EDT 12/13/2023 1:25 PM EDT Adriana Sanches MD LAB BLOOD ORDERABLES Final Result Performing Organization Address [facility] de Phone Number [facility] [address] [place] [address] [phone] * Hepatitis C Viral RNA, Quantitative, Real-Time PCR (12/13/2023 12:18 PM EDT) Hepatitis C Viral Load <15 NOT DETECTED NOT DETECTED IU/mL [facility] HCV Log PCR <1.18 NOT DETECTED NOT DETECTED Log IU/mL [facility] Comment:For additional infor gera, please refer tohttp://education.Portfolium/faq/NSH08q0(This link is being provided for informational/educational purposes only.)THIS TEST WAS PERFORMED AT:[facility] [place] [id number] KENNEDY MD Blood 12/13/2023 12:1 8 PM EDT 12/13/2023 1:25 PM EDT us Adriana Sanches MD LAB BLOOD ORDERABLES Final Result Performing Organization Address [facility] [[email or web address]] Co de Phone Number [facility] [address] [place] [phone] * HIV-1/2 Antigen and Antibodies, Fourth Generation, with Reflexes (12/13/2023 12:18 PM EDT) HIV AB/AG Nonreactive Nonreactive [facility] Comment:HIV-1 p24 Ag and/or HIV-1/HIV-2 Ab not detected.A test result that is nonreactive does not exclude thepossibility of exposure to or infection with HIV-1 and/orHIV-2. Nonreactive results in this assay for individualswith prior exposure to HIV-1 and/or HIV-2 may be due toantigen and antibody levels that are below the limit ofdetection of this assay.The [employer] HIV Ag/Ab Combo assay result andsupplemental assay results should be interpreted inconjunction with the patient's clinical presentation,history and other laboratory results. If the results areinconsistent with clinical evidence, additional testing issuggested to confirm the result. Blood Venous blood specimen / Unknown 12/13/2023 12:18 PM EDT 12/13/2023 1:15 PM EDT Adriana Sanches MD LAB BLOOD ORDERABLES Final Result [facility] [address] [place] [address] [phone] * Pap Smear (07/02/2021) Pap Negative for intraephithelial lesion or malignancy Negative for intraephithelial lesion or malignancy, Other HPV Undetected Historical Provider HEALTH MAINTENANCE Final Result from Last 3 Months or Most Recently Relevant to Health Maintenance [place] [address] STANDARD CCA ONE CARE < 65 Care Teams Cash Applications Representative Relationship Specialty Start Date End Date Adriana Palnecia MD [address] [place] [phone] PCP - General Family Medicine 06/01/18
--- OUTSIDE RECORDS SUMMARY | 2024-12-25 18:48 | XMS_ITS | Encounter Summary ---
Author Organization [employer] Address [address] [facility] 7t [place] [address] Care Team Providers Care Wind Turbine Design Engineer Name Role Phone Adriana Palencia MD Primary Care Provide r Reason for Visit * Reason Comments Med Change Request Encounter Details Date Type Department Care Team ([facility] st Contact Info) Description 08/06/2024 Refill [facility] [address] [place] [address] Adriana Palencia MD [address] [place] [address] Class 1 obesity due to excess calories [...] documented as of this encounter Care Teams Wind Turbine Design Engineer Relationship Specialty Start Date End Date Adriana Palencia MD [address] [place] [address] PCP - General Family Medicine 06/01/18 documented as of this encounter
--- OUTSIDE RECORDS SUMMARY | 2024-12-25 18:48 | XMS_ITS | Encounter Summary ---
Author Organization [employer] Address [address] [facility] 7t [place] [address] Care Team Providers Care Director Of Operations For Therapy Name Role Phone Adriana Palencia MD Primary Care Provide r Reason for Visit * Reason Comments Med Refill Encounter Details Date Type Department Care Team ([facility] st Contact Info) Description 07/19/2024 Refill [facility] [address] [place] [address] Adriana Palencia MD [address] [place] [address] Class 1 obesity due to excess calories [...] documented as of this encounter Care Teams Director Of Operations For Therapy Relationship Specialty Start Date End Date Adriana Palencia MD [address] [place] [address] PCP - General Family Medicine 06/01/18 documented as of this encounter
--- OUTSIDE RECORDS SUMMARY | 2024-12-25 18:48 | XMS_ITS | Encounter Summary ---
Author Organization [employer] Address [address] [facility] 7t [place] [address] Care Team Providers Care Entertainment Production Professional Name Role Phone Adriana Palencia MD Primary Care Provide r Reason for Visit * Reason Comments Med Refill Encounter Details Date Type Department Care Team ([facility] st Contact Info) Description 09/07/2024 Refill [facility] [address] [place] [address] Adriana Palencia MD [address] [place] [address] Polyarthralgia; Class 1 obesity due to excess [...] documented as of this encounter Care Teams Entertainment Production Professional Relationship Specialty Start Date End Date Adriana Palencia MD [address] [place] [address] PCP - General Family Medicine 06/01/18 documented as of this encounter
--- OUTSIDE RECORDS SUMMARY | 2024-12-25 18:48 | XMS_ITS | Encounter Summary ---
Author Organization [employer] Address [address] [place] [address] 7t [place] [address] Care Team Providers Care Icu Staff Nurse Name Role Phone Adriana Palencia MD Primary Care Provide r Encounter Details Date Type Department Care Team (Late st Contact Info) Description 03/17/2022 Abstract [facility] [address] [place] [address] ProviderGurvinder MD Social History Tobacco Use Types [...] on filedocumented in this encounter Care Teams Icu Staff Nurse Relationship Specialty Start Date End Date Adriana Palencia MD [address] [place] [address] PCP - General Family Medicine 06/01/18 documented as of this encounter
--- OUTSIDE RECORDS SUMMARY | 2024-12-25 18:48 | XMS_ITS | Encounter Summary ---
Author Organization [employer] Address [address] [facility] [address] [place] [address] Care Team Providers Care Water Supply Engineer Name Role Phone Adriana Palencia MD Primary Care Provide r Encounter Details Date Type Department Care Team ([facility] st Contact Info) Description 01/18/2023 Abstract [facility]INE [address] [place] [address] Eliane Raman Social History Tobacco Use Types [...] documented as of this encounter Care Teams Water Supply Engineer Relationship Specialty Start Date End Date Adriana Palencia MD [address] [place] [address] PCP - General Family Medicine 06/01/18 documented as of this encounter
--- OUTSIDE RECORDS SUMMARY | 2024-12-25 18:48 | XMS_ITS | Clinical Summary ---
Author Organization [employer] [facility] Address [address] [place] [address] Care Team Providers Care Toy Trains And Accessories Salesperson Name Role Phone Unavailable Primary Care Provider [...]
--- OUTSIDE RECORDS SUMMARY | 2024-12-25 18:48 | XMS_ITS | Encounter Summary ---
Author Organization [employer] Address [address] [facility] [address]t [place] [address] Care Team Providers Care Administrative Personal Assistant Name Role Phone Adriana Palencia MD Primary Care Provide r Reason for Visit * Reason Comments Med Refill Encounter Details Date Type Department Care Team ([facility] st Contact Info) Description 08/03/2024 Refill [facility] MEDICINE [address] [place] [address] Adriana Palencia MD [address] [place] [address] Class 1 obesity due to excess calories [...] documented as of this encounter Care Teams Administrative Personal Assistant Relationship Specialty Start Date End Date Adriana Palencia MD [address] [place] [address] PCP - General Family Medicine 06/01/18 documented as of this encounter
--- OUTSIDE RECORDS SUMMARY | 2024-12-25 18:48 | XMS_ITS | Encounter Summary ---
Author Organization [employer] Address [address] [facility] 7t [place] [address] Care Team Providers Care Sandwich Wrapper Name Role Phone Adriana Palencia MD Primary Care Provide r Reason for Visit * Reason Comments Med Refill Encounter Details Date Type Department Care Team (Late st Contact Info) Description 11/24/2022 Refill [facility] MEDICINE [address] [place] [address] Lilia Mcgregor FNP Migraine without aura and [...] documented as of this encounter Care Teams Sandwich Wrapper Relationship Specialty Start Date End Date Adriana Palencia MD [address] [place] [address] PCP - General Family Medicine 06/01/18 documented as of this encounter
--- OUTSIDE RECORDS SUMMARY | 2024-12-25 18:48 | XMS_ITS | Encounter Summary ---
Author Organization [email or web address] Address [address] [facility] 7t [place] [address] Care Team Providers Care Clinical Specialist Medical Device Name Role Phone Adriana Palencia MD Primary Care Provide r Reason for Visit * Reason Comments Med Refill Encounter Details Date Type Department Care Team ([facility] st Contact Info) Description 04/14/2023 Refill [facility] MEDICINE [address] [place] [address] Heather Wei MD [address] [place] [address] Gastroesophageal reflux disease without esophagitis Social History [...] as of this encounter Care Teams Clinical Specialist Medical Device Relationship Specialty Start Date End Date Adriana Palencia MD [address] [place] [id number] PCP - General Family Medicine 06/01/18 documented as of this encounter
--- OUTSIDE RECORDS SUMMARY | 2024-12-25 18:48 | XMS_ITS | Encounter Summary ---
Author Organization [employer] Address [address] [facility] 7 [place] [address] Care Team Providers Care Epic Professional Name Role Phone Adriana Palencia MD Primary Care Provide r Reason for Visit * Reason Comments Med Refill Encounter Details Date Type Department Care Team ([facility] st Contact Info) Description 09/12/2024 Refill [facility] MEDICINE [address] [place] [address] Adriana Palencia MD [address] [place] [address] Acquired hypothyroidism Social History Tobacco Use Types [...] documented as of this encounter Care Teams Epic Professional Relationship Specialty Start Date End Date Adriana Palencia MD [address] [place] [address] PCP - General Family Medicine 06/01/18 documented as of this encounter
--- OUTSIDE RECORDS SUMMARY | 2024-12-25 18:48 | XMS_ITS | Encounter Summary ---
Author Organization [employer] Address [address] [facility] 7t [place] [address] Care Team Providers Care Waste Baler Name Role Phone Adriana Palencia MD Primary Care Provide r Reason for Visit * Reason Comments Med Refill Encounter Details Date Type Department Care Team ([facility] st Contact Info) Description 08/02/[address] [facility] MEDICINE [address] [place] [address] Adriana Palencia MD [address] [place] [address] Class 1 obesity due to excess calories [...] documented as of this encounter Care Teams Waste Baler Relationship Specialty Start Date End Date Adriana Palencia MD [address] [place] [address] PCP - General Family Medicine 06/01/18 documented as of this encounter
--- OUTSIDE RECORDS SUMMARY | 2024-12-25 18:48 | XMS_ITS | Encounter Summary ---
Author Organization [employer] Address [address] [facility] 7 [place] [address] Care Team Providers Care Associate Creative Director Name Role Phone Adriana Palencia MD Primary Care Provide r Encounter Details Date Type Department Care Team ([facility] st Contact Info) Description 05/17/2022 Telephone [facility] MEDICINE [address] [place] [address] Rosemary Espana RN [address] [place] [address] Social History Tobacco Use Types Packs/Day Years [...] EST T triaged today, seen ER at [facility] on 05/14 for anxiety issues, chest pain, and ear buzzing.. please obtain ER records. documented in this encounter Plan of Treatment Not on file documented as of this encounter Visit Diagnoses Not on filedocumented in this encounter Care Teams Associate Creative Director Relationship Specialty Start Date End Date Adriana Palencia MD [address] [place] [address] PCP - General Family Medicine 06/01/18 documented as of this encounter
--- OUTSIDE RECORDS SUMMARY | 2024-12-25 18:48 | XMS_ITS | Clinical Summary ---
Author Organization [facility] Address [address] [phone] Phone Care Team Providers Care Quarter Supervisor Name Role Phone Unknown, Unknown Primary Care [...] MEDICARE PART A & B Care Teams Quarter Supervisor Relationship Specialty Start Date End Date Unknown, Unknown, PCP - General 04/21/17 Additional Source Comments The information contained in this document represents components of the legal health record. It is not the complete legal health record.[facility]
--- OUTSIDE RECORDS SUMMARY | 2024-12-25 18:48 | XMS_ITS | Encounter Summary ---
Author Organization [facility] Address [address] [facility] [address] [place] [address] Phone Care Team Providers Care Call Worker Name Role Phone Unknown, Unknown Primary Care Provider Nikia pina Encounter Details Date Type Department Care Team (Latest Contact Info) Description 04/21/2017 Ancillary Orders [facility] [address] [place] [address] [place] [address] Hector Zamora DO [address] [place] [address] Palpitations; Chest pain, unspecified type; Syncope, unspecified [...] type documented in this encounter Care Teams Call Worker Relationship Specialty Start Date End Date Unknown, Unknown, MD PCP - General 04/21/17 documented as of this encounter Additional Source Comments The information contained in this document represents components of the legal health record. It is not the complete legal health record.[facility]
--- OUTSIDE RECORDS SUMMARY | 2024-12-25 18:48 | XMS_ITS | Encounter Summary ---
Author Organization [employer] Address [address] [place] [address] [address] [place] [address] Care Team Providers Care Chief Design Engineer Name Role Phone Adriana Palencia MD Primary Care Provide r Reason for Visit * Reason Comments Med Refill Encounter Details Date Type Department Care Team ([facility] st Contact Info) Description 09/25/2022 Refill [facility] MEDICINE [address] [place] [address] Adriana Palencia MD [address] [place] [address] Fibromyalgia Social History Tobacco Use Types Packs/Day [...] as of this encounter Care Teams Chief Design Engineer Relationship Specialty Start Date End Date Adriana Palencia MD [address] [place] [address] PCP - General Family Medicine 06/01/18 documented as of this encounter
--- OUTSIDE RECORDS SUMMARY | 2024-12-25 18:48 | XMS_ITS | Encounter Summary ---
Author Organization [employer] Address [address] [facility] [address] [place] [address] Care Team Providers Care Beer Merchant Name Role Phone Adriana Palencia MD Primary Care Provide r Reason for Visit * Reason Comments Med Refill Encounter Details Date Type Department Care Team ([facility] st Contact Info) Description 03/10/2024 Refill [facility] [address] [place] [address] Adriana Palencia MD [address] [place] [address] Vitamin B12 deficiency Social History Tobacco Use [...] documented as of this encounter Care Teams Beer Merchant Relationship Specialty Start Date End Date Adriana Palencia MD [address] [place] [address] PCP - General Family Medicine 06/01/18 documented as of this encounter
[2024-12-25 18:55] VITALS: BP 100/45; PULSE 67; RESP 67; TEMP 36.9; O2SAT 99
[2024-12-25 20:27] VITALS: BP 100/45; PULSE 67; RESP 67; TEMP 36.9; O2SAT 99
== END 2024-12-25 20:28 | disposition home or self-care (01) ==
PROVIDERS: Physician Assistant Medical; Emergency Provider Student in an Organized Health Care Education/Training Program; PCP Internal Medicine
DX: G43.909 Migraine, unspecified, not intractable, without status migrainosus (principal); M54.2 Cervicalgia
CPT/HCPCS: 36415; 70450; 80053; 83735; 85025; 85652; 86140; 96365; 96375; 99284; 99285; J1885; J2765; J3475

== ENCOUNTER → 2024-12-25 17:36 | Outpatient (BNV) | payer OTHER, SELFPAY | PROVIDERS: Emergency Provider Student in an Organized Health Care Education/Training Program; PCP Internal Medicine; Visit Provider Radiology Diagnostic Radiology | DX: R51.9 Headache, unspecified (principal) | CPT/HCPCS: 70450 ==

== ENCOUNTER 2025-01-13 22:54 | Emergency (ER) | payer OTHER, SELFPAY ==
[2025-01-13 23:14] VITALS: BP 96/54; PULSE 77; RESP 15; TEMP 37.6; O2SAT 95; BMI 26.9
[2025-01-14 00:05] LABS: IDNOW Serial# 6674DD1D; Strep A Nucleic Acid Negative (Negative)
[2025-01-14 00:08] LABS: IDNOW Serial# 16C4AD1C; Influenza B2 Negative (Negative)
[2025-01-14 00:09] LABS: COVID-19 Test Positive (Negative); IDNOW Serial# 152EDE1D
[2025-01-14 02:50] VITALS: BP 100/62; PULSE 79; RESP 16; TEMP 39.3; O2SAT 97
--- NOTE | 2025-01-14 02:54 | PC.NURSE ---
febrile. tylenol given per jun.
--- NOTE | 2025-01-14 03:59 | PC.NURSE ---
pt states her son was a patient and now he is discharged she no longer wants to wait. she saw that she was covid+ on the patient portal and will treat sx at home. patient verbalizes understanding to return if any worsening sx.
--- OUTSIDE RECORDS SUMMARY | 2025-01-14 04:07 | XMS_ITS | Encounter Summary ---
Author Organization [employer] Address [address] [place] [address] [address] [place] [address] Care Team Providers Care Is Technician Name Role Phone Adriana Palencia MD Primary Care Provide r Reason for Visit * Reason Comments Med Refill Encounter Details Date Type Department Care Team ([facility] st Contact Info) Description 10/31/2022 Refill [facility] MEDICINE [address] [place] [address] Adriana Palencia MD [address] [place] [address] Social History Tobacco Use Types Packs/Day Years [...] documented as of this encounter Care Teams Is Technician Relationship Specialty Start Date End Date Adriana Palencia MD [address] [place] [address] PCP - General Family Medicine 06/01/18 documented as of this encounter
--- OUTSIDE RECORDS SUMMARY | 2025-01-14 04:07 | XMS_ITS | Clinical Summary ---
Author Organization [employer] Address [address] [place] [address] 7 [place] [address] Care Team Providers Care Rn Progressive Care Name Role Phone Adriana Palencia MD Primary Care Provide r Allergies Active Allergy Reactions Criticality Noted Date Comments Diphenhydramine 02/02/2021 Tramadol Dizziness 09/08/2022 Pt reports medication causes her to have hallucinations and dizziness Medications acetaminophen (Tylenol) 500 MG tablet take 2 tablet by oral route every 8 hours for 5 days, then as needed not to exceed 8 tablets per 24hrs 02/03/20 21 Active ascorbic acid (Vitamin C) 500 MG tablet 1 (one) time each day. 07/12/19 20 Active cyclobenzaprine (Flexeril) 10 MG tablet Take 1 tablet by mouth every 8 (eight) hours. 09/06/19 19 Active ergocalciferol (Vitamin D-2) 1.25 MG (58699 UT) capsule take 1 capsule by oral route every week 07/12/19 20 Active ferrous sulfate 325 (65 Fe) MG tablet 1 tablet every 12 (twelve) hours. 04/26/19 22 Active zoster vaccine-recombinan t adjuvanted (Shingrix) 50 MCG/0.5ML vaccine Inject 0.5 mL into the shoulder, thigh, or buttocks. 11/06/19 22 Active simethicone (Mylicon,Gas-X) 180 MG capsule take one with meals three times a day 07/02/19 21 Active phenylephrine 0.25% 0.25-14-74.9 % ointment apply topically to skin as needed for hemorrhoids 04/19/19 22 Active meloxicam (Mobic) 15 MG tablet Take 1 tablet by mouth 1 (one) time each day. 12/03/19 22 Active lidocaine (Lidoderm) 5 % patch Place 1 patch on the skin 1 (one) time each day. 08/20/19 22 Active ipratropium (Atrovent) 0.02 % nebulizer solution Inhale 2.5 mL every 6 (six) hours. 03/10/20 20 Active Lactobacillus-Inul in ([facility]) capsule take 1 capsule 2 times a day every 12 hours 03/11/20 20 Active DULoxetine (Cymbalta) [address] capsuleIndications :Fibromyalgia TAKE 1 CAPSULE (30 MG) BY MOUTH IN THE MORNING. DO NOT CRUSH OR CHEW. 30 capsule 1 08/27/19 23 Active LORazepam (Ativan) 0.5 MG tablet TAKE 1 TABLET BY MOUTH EVERY DAY NEEDED FOR ANXIETY 30 tablet 10/21/19 23 Active hydrOXYzine HCl (Atarax) 10 MG tablet TOME 1 O 2 TABLETAS POR VIA ORAL DOS VECES AL KENAN CUANDO SEA NECESARIO PARA LA ANSIEDAD 60 tablet 3 11/18/19 23 Active cholecalciferol (Vitamin D-3) 50 MCG (1999 UT) capsule TOME LUKE C PSULA TODOS LOS D 08/30/19 23 Active predniSONE (Deltasone) 20 MG tablet TOME LUKE TABLETA TODOS LOS D POR SHEILA D 06/12/19 23 Active valACYclovir (Valtrex) 1 g tablet 1 tab po tid 21 tablet 01/19/20 23 Active gabapentin (Neurontin) 100 MG capsuleIndications :Chronic pain of right lower extremity Take 1 capsule (100 mg) by mouth at bedtime. 30 capsule 1 03/31/20 23 Active meclizine (Antivert) 25 MG tablet Take 1 tablet (25 mg) by mouth every 8 (eight) hours. 30 tablet 1 06/12/19 24 Active butalbital-acetami nophen-caffeine 50-325-40 MG tabletIndications: Migraine without aura and without status migrainosus, not intractable TOME LUKE TABLETA CADA SEIS HORAS CUANDO SEA NECESARIO PARA EL DOLOR DE LTEI 15 tablet 2 06/16/19 24 Active celecoxib (CeleBREX) 200 MG capsule TOME 1 C PSULA POR V A ORAL DOS VECES AL D A 01/31/20 Active escitalopram (Lexapro) 5 MG tablet TOME LUKE TABLETA TODOS LOS D EN LA NOCHE 02/07/20 Active ondansetron ODT (Zofran-ODT) 4 MG disintegrating tablet TOME LUKE TABLETA TODOS LOS D CUANDO SEA NECESARIO PARA LAS N USEAS Y V MITOS POR 5 D 02/17/20 Active albuterol (2.5 MG/3ML) 0.083% nebulizer solutionIndication s:Mild intermittent asthma, unspecified whether complicated Take 3 mL by nebulization every 8 (eight) hours. 75 mL 2 12/13/19 Active Blood Pressure Monitoring (Blood Pressure Cuff) miscIndications:El evated blood pressure reading 1 each Once daily. 1 each 02/02/20 Active Diclofenac Sodium 1 % gel APPLY 2 GRAMS TOPICALLY TO AFFECTED AREA(S) TWICE DAILY NEEDED 100 g 2 02/07/20 24 Active SUMAtriptan (Imitrex) 50 MG tablet Take 1 tablet (50 mg) by mouth if needed in the morning, at noon, and at bedtime for migraine. May repeat dose once in 2 hours if no relief. Do not exceed 2 doses in 24 hours. 9 tablet 1 02/21/20 24 025 Active loratadine (Claritin) 10 MG tablet Take 1 tablet (10 mg) by mouth Once per day. 10 tablet 04/23/19 25 026 Active omeprazole (PriLOSEC) [address] capsuleIndications :Gastroesophageal reflux disease without esophagitis TOME 1 CAPSULA POR VIA ORAL TODOS LOS DIAZ BEFORE A MEAL 90 capsule 1 08/10/19 25 Active levothyroxine (Synthroid) 125 MCG tabletIndications: Acquired hypothyroidism Take 1 tablet (125 mcg) by mouth before breakfast. 30 tablet 3 09/11/19 25 026 Active Tirzepatide-Weight Management (Zepbound) 2.5 MG/0.5ML solution auto-injectorIndic ations:Class 1 obesity due to excess calories with serious comorbidity and body mass index (BMI) of 32.0 to 32.9 in adult Inject 0.5 mL (2.5 mg) under the skin 1 (one) time per week. 2 mL 09/11/19 Active albuterol 108 (90 Base) MCG/ACT inhalerIndications :Mild intermittent asthma, unspecified whether complicated INHALE 2 PUFFS BY MOUTH EVERY 4 HOURS 18 g 1 11/08/19 25 Active ibuprofen 800 MG tabletIndications: Fibromyalgia TAKE 1 TABLET BY MOUTH 3 TIMES DAILY. 90 tablet 11/13/19 25 Active baclofen (Lioresal) 10 MG tabletIndications: Muscle spasm,Pain TAKE 1 TABLET BY MOUTH THREE TIMES A DAY NEEDED 270 tablet 11/16/19 25 Active valACYclovir (Valtrex) 500 MG tablet TAKE 1 TABLET BY MOUTH EVERY DAY 90 tablet 1 12/10/19 25 Active Active Problems Problem Noted Date Diagnosed Date [...] life style modifications, diet and referral to global mobility specialist. Recommended to decrease soda and sugary [...] in 4-5 weeeks Gastroesophageal reflux disease 04/30/2013 Assessment & Plan (01/07/2025 12:58 PM EDT): Improved without zepbound but pt would like to see GI Referral placed Mixed anxiety and depressive disorder 07/04/2012 Assessment & Plan (06/16/2023 10:25 AM EST): Continue to follow with psychiatrist and therapist Acquired hypothyroidism 12/30/2011 Cobalamin deficiency 12/30/2011 Iron deficiency anemia 12/30/2011 Encounters Date Type Department Care Team Description 01/13/2025 Orders Only GENERIC EXTERNAL DATA DEPARTMENT Provider, Generic External Data 12/25/2024 Orders Only GENERIC EXTERNAL DATA DEPARTMENT Provider, Generic External Data 12/09/2024 3:30 PM EDT Office Visit [facility] [address] [place] [address] Manju Jennings NP Gastroesophageal reflux disease, unspecified whether esophagitis present (Primary Dx) 12/09/2024 Travel 12/07/2024 Refill [facility] [address] [place] [address] Adriana Palencia MD 12/06/2024 Telephone [facility] [address] [place] [phone] Bree Ag MD No Show 12/05/2024 Telephone [facility] [address] [place] [phone] Adriana Palencia MD Chart Prep 12/03/2024 Travel 12/02/2024 Telephone [facility] [address] [place] [phone] Adriana Palencia MD Nurse Triage 11/25/2024 11:00 AM EDT Office Visit [facility] [address] [place] [phone] Harsha Rees MD Gastroesophageal reflux disease, unspecified whether esophagitis present (Primary Dx) 11/15/2024 Telephone [facility] [address] [place] [phone] Adriana Palencia MD Nurse Triage 11/14/2024 Refill [facility] [address] [place] [phone] Adriana Palencia MD Muscle spasm; Pain 11/12/2024 Refill [facility] [address] [place] [phone] Adriana Palencia MD Fibromyalgia 11/07/2024 Refill [facility] [address] [place] [phone] Adriana Palencia MD Mild intermittent asthma, unspecified whether complicated 10/26/2024 Orders Only [facility] External Provider, [facility] 10/25/2024 Orders Only GENERIC EXTERNAL DATA DEPARTMENT Provider, Generic External Data from Last 3 Months Immunizations Immunization Administration [...] Vaccine (#1) 2024 02/06/2023 Mammogram 02/21/2025 02/22/2024, 11/05/2022, 08/27/2020, Additional history exists Alcohol/Substance Use Screening [...] Procedure Name Priority Date/Time Associated Diagnosis Comments COVID-19 ID NOW (MAC) Routine 01/13/2025 11:25 PM EDT INFLUENZA A B2 ID NOW (MCA) Routine 01/13/2025 11:25 PM EDT STREP A NUCLEIC ACID Routine 01/13/2025 11:[address] HEAD WO CONTRAST Routine 12/25/2024 7 :05 PM EDT SED RATE BY MODIFIED WESTERGREN [...] T4, FREE Routine 10/25/2024 10:54 AM EDT BI MAMMOGRAM SCREENING TOMOSYNTHESIS BILATERAL Routine [...] Recently Relevant to Health Maintenance Results * Influenza A B2 ID NOW ([employer]) (01/13/2025 11:25 PM EDT) IDNOW SERIAL# [id number] [facility] Influenza A Negative Negative [facility] Influenza B2 Negative Negative [facility] Influenza A B2 Note See Note [facility] Comment:The Mac ID NOW In fluenza A B2 test is used for thequalitative detection of influenza A and B from patientswith signs and symptoms of respiratory infection.Negative results do not preclude influenza virus infectionand should not be used as the sole basis for diagnosis,treatment or other patient management decisions.There is a risk of false negative results due to thepresence of variants in the viral targets of the assay, lowlevels of virus in the specimen and co- infection withRespiratory Syncytial Virus. 01/13/2025 11:2 5 PM EDT 01/13/2025 11:39 PM EDT Generic External Data Provider LAB MICROBIOLOGY - GENERAL ORDERABLES Final Result Performing Organization Address [facility] Co de Phone Number [facility] [address] [place] [phone] * Strep A Nucleic Acid (01/13/2025 11:25 PM EDT) IDNOW SERIAL# [id number] [facility] Strep A Nucleic Acid Negative Negative [facility] Comment:All test results mus t be correlated with clinical findings.This test has not been evaluated for monitoring treatment ofinfection.Additional follow-up testing using the culture method isrequired if the result is negative and clinical symptomspersist, or in the event of an acute rheumatic feveroutbreak. 01/13/2025 11:2 5 PM EDT 01/13/2025 11:39 PM EDT Generic External Data Provider LAB MICROBIOLOGY - GENERAL ORDERABLES Final Result Performing Organization Address [facility] de Phone Number [facility] [address] [place] [phone] * (ABNORMAL) COVID-19 ID NOW (MAC) (01/13/2025 11:25 PM EDT) IDNOW SERIAL# [id number] [facility] COVID-19 TEST Positive (A) Negative [facility] COVID-19 NOTE See Note [facility] Comment: Results are for the identification of SARS-CoV2 RNA. TheSARS-CoV2 RNA is generally detectable in respiratory samplesduring the acute phase of infection. Positive results areindicative of the presence of SARS-CoV-2 RNA; clinicalcorrelation with patient history and other diagnosticinformation is necessary to determine patient infectionstatus. Positive results do not rule out bacterial infectionor co- infection with other viruses.Testing facilities within the [place] and [facility] are required to report all positive results tothe appropriate public health authorities.Negative results should be treated as presumptive and, ifinconsistent with clinical signs and symptoms or necessaryfor patient management, should be tested with differentauthorized or cleared molecular tests. Negative results donot preclude SARS-CoV2 RNA infection and should not be usedas the sole basis for patient management decisions. Negativeresults should be considered in the context of a patient'srecent exposures, history and the presence of clinical signsand symptoms consistent with COVID-19.This test has been authorized by the FDA under an EmergencyUse Authorization (EUA) for use by authorized laboratories.Testing performed on the [employer] NOW utilizing NAAT. 01/13/2025 11:2 5 PM EDT 01/13/2025 11:39 PM EDT us Generic External Data Provider LAB MOLECULAR KENAN GNOSTICS ORDERABLES Final Result [facility] [address] [place] [phone] * CT Head w/o Contrast (12/25/2024 7:05 PM EDT) Anatomical Region Laterality Modality Head, Neck Computed Tomogra phy 12/25/2024 7:05 PM EDT Narrative 12/25/2024 7:06 PM EDT [address] [address] [address] Scan Report Signed Patient: Sudha Dean MR#: [id number] : 1970 Acct:[id number] Age/Sex: 54 / F ADM Date: 12/25/24 Loc: .ED Attending Dr: Ordering Physician: Gaudencio Eldridge Date of Service: 12/25/24 Procedure(s): CT head/brain wo IV con Accession Number(s): [id number] cc: Adriana Palencia MD; Gaudencio Eldridge Report Number: [id number]: Total DLP = 0.00 mGy-cm Reason for Exam: headache CLINICAL HISTORY: headache CT head without contrast. COMPARISON: CT head dated 02/07/24 at 08:27 EDT FINDINGS: The visualized paranasal sinuses are clear. The mastoid air cells are clear. No calvarial fracture. No evidence for mass or mass effect. No intracranial hemorrhage or abnormal extra-axial fluid collection. Basal ganglia mineralization present on the right. No evidence of hydrocephalus. The basilar cisterns are patent. Posterior fossa appears unremarkable. IMPRESSION: 1. No acute intracranial findings. This document has been electronically signed by: Derek Philip MD on 12/25/2024 19:05:28 Dictated By: Derek Philip MD Signed By: <Electronically signed by Derek Philip MD in OV> 12/26/24 0156 DD/ 04 TD/TT: 12/25/241904 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: Procedure Note Donotuseinterpreter, Image - 12/26/[address] [place] [address] [address] Scan Report Signed Patient: Sudha Dean [facility]#: [id number] : 1970Acct:[id number] Age/Sex: 54 / FADM Date: 12/25/24 Loc: HO.ED Attending Dr: Ordering Physician: Gaudencio Eldridge Date of Service: 12/25/24 Procedure(s): CT head/brain wo IV con Accession Number(s): [id number] cc: Adriana Palencia MD; Gaudencio Eldridge Report Number: [id number]: Total DLP = 0.00 mGy-cm Reason for Exam: headache CLINICAL HISTORY: headache CT head without contrast. COMPARISON: CT head dated 02/07/24 at 08:27 EDT FINDINGS: The visualized paranasal sinuses are clear. The mastoid air cells are clear. No calvarial fracture. No evidence for mass or mass effect. No intracranial hemorrhage or abnormal extra-axial fluid collection. Basal ganglia mineralization present on the right. No evidence of hydrocephalus. The basilar cisterns are patent. Posterior fossa appears unremarkable. IMPRESSION: 1. No acute intracranial findings. This document has been electronically signed by: Derek Philip MD on 12/25/2024 19:05:28 Dictated By: Derek Philip MD Signed By: <Electronically signed by Derek Philip MD in OV> 12/26/24 0156 DD/ 04 TD/TT: 12/25/241904 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: [facility] External Provider IMG CT PROCEDURES Edited Result - Final * (ABNORMAL) CBC auto differential (12/25/2024 3:17 PM EDT) White Blood Count 6.4 4.8 - 10.8 X10*3/uL [facility] Red Blood Count 4.11(L) 4.20 - 5.50 X10*6/uL [facility] Hemoglobin 12.2 12.0 - 16.0 g/dl [facility] Hematocrit 36.2(L) 37.0 - 47.0 % [facility] Mean Corpuscular Volume 88.1 80.0 - 98.0 fL [facility] Mean Corpuscular Hemoglobin 29.7 27.0 - 33.0 pg [facility] Mean Corpuscular HGB Conc 33.7 31.0 - 35.0 g/dl [facility] Red Cell Distribution Width 14.6 11.0 - 16.0 % [facility] Platelet Count 179 160 - 400 X10*3/uL [facility] Mean Platelet Volume 10.7 9.4 - 12.3 fL [facility] Neutrophils Percent Auto 65.7 45 - 73 % [facility] Imm Gran Pct Auto 0.3 0.0 - 0.4 % [facility] Lymphocytes Percent Auto 23.0 20 - 40 % [facility] Monocytes Percent Auto 6.8 2 - 11 % [facility] Eosinophils Percent Auto 3.6 0 - 4 % [facility] Basophils Percent Auto 0.6 0 - 2 % [facility] NRBC Pct Auto 0.0 0.0 - 0.2 /100WBC [facility] Neutrophils Absolute Auto 4.2 2.0 - 8.3 x10*3/uL [facility] Imm Gran Abs Auto 0.02 0.00 - 0.03 X10*3/uL [facility] Lymphocytes Absolute Auto 1.5 1.2 - 4.9 X10*3/uL [facility] Monocytes Absolute Auto 0.4 0.1 - 1.2 X10*3/uL [facility] Eosinophils Absolute Auto 0.2 0.0 - 0.4 X10*3/uL [facility] Basophils Absolute Auto 0.0 0.0 - 0.2 X10*3/uL [facility] NRBC Abs Auto 0.000 0.0 - 0.012 X10*3/uL [facility] 12/25/2024 3:17 PM EDT 12/25/2024 3:23 PM EDT us Generic External Data Provider LAB BLOOD ORDERAB LES Final Result Performing Organization Address City/[facility]/ZIP Co de Phone Number [facility] [address] [place] [phone] * Sed Rate by Modified oJrdana (12/25/2024 3:17 PM EDT) Erythrocyte Sedimentation Rate 16 0 - 20 MM/HR [facility] Comment:Patients with polycy themia and many hemoglobin abnormalitiesmay have depressed sed rates whereas patients with anemiamay have elevated sed rates. 12/25/2024 3:17 PM EDT 12/25/2024 3:23 PM EDT us Generic External Data Provider LAB BLOOD ORDERAB LES Final Result Performing Organization Address [facility]/ZIP Co de Phone Number [facility] [address] [place] [phone] * C-reactive Protein (12/25/2024 3:17 PM EDT) Pathologist [facility] C Reactive Protein <0.04 < or = 0.50 mg/dL [facility] 12/25/2024 3:17 PM EDT 12/25/2024 3:23 PM EDT Generic External Data Provider LAB BLOOD ORDERAB LES Final Result Performing Organization Address [facility] de Phone Number [facility] [address] [place] [phone] * Magnesium (12/25/2024 3:17 PM EDT) [facility] Magnesium 2.1 1.6 - 2.6 mg/dL [facility] 12/25/2024 3:17 PM EDT 12/25/2024 3:23 PM EDT [employer] External Data Provider LAB BLOOD ORDERAB LES Final Result Performing Organization Address [facility] de Phone Number [facility] [address] [place] [phone] * (ABNORMAL) Comprehensive Metabolic Panel (12/25/2024 3:17 PM EDT) [facility] Sodium 142 135 - 145 mmol/L [facility] Potassium 4.4 3.3 - 5.1 mmol/L [facility] Chloride 109(H) 96 - 108 mmol/L [facility] Carbon Dioxide 25 22 - 29 mmol/L [facility] Anion Gap 12 12 - 20 [facility] Urea Nitrogen (BUN) 12 9 - 16 mg/dL [facility] Creatinine, Serum 0.86 0.5 - 1.4 mg/dL [facility] Creatinine Clr Calc Pharmacy 73.0 [facility] Comment:Provided height and weight: 165.1 cm,69.2 kg.eGFR (calculated from the MDRD study equation) and eCrCl(calculated from the Cockcroft-Gault equation) are based ondifferent parameters and may not yield comparable results.If eCrCl result is absurd, please check patient'sheight/weight. Estimated Glomerular Filt Rate >60 [facility] Comment:Chronic Kidney Disea se: Estimated GFR < 60 mL/min/1.10e7Mruwci Kidney Disease: Estimated GFR < 15 mL/min/1.73m2 Glucose 141(H) 60 - 115 mg/dL [facility] Calcium 9.2 8.4 - 10.2 mg/dL [facility] Bilirubin, Total 0.3 0.0 - 1.0 mg/dL [facility] Aspartate Amino Transferase 24 5 - 31 U/L [facility] Alanine Aminotransferase 8 0 - 31 U/L [facility] Total Protein 6.9 6.5 - 8.0 g/dL [facility] Albumin Level 4.2 3.5 - 5.0 g/dL [facility] Alkaline Phosphatase 131(H) 39 - 117 U/L [facility] 12/25/2024 3:17 PM EDT 12/25/2024 3:23 PM EDT us Generic External Data Provider LAB BLOOD ORDERAB LES Final Result Performing Organization Address City/State/[facility] Co de Phone Number [facility] [address] [place] [phone] * MR Shoulder w/o Contrast Right (10/29/2024 8:24 PM EDT) Anatomical Region Laterality Modality Upper Extremities, Shoulder Right Magn etic Resonance 10/29/2024 8:24 PM EDT Narrative 10/29/2024 8:26 PM EDT [address] [address] Magnetic Resonance Report Signed Patient: Sudha Dean MR#: [id number] : 1970 Acct:[id number] Age/Sex: 54 / F ADM Date: 10/26/24 Loc: HO.MRI Attending Dr: Kane Downey MD Ordering Physician: Kane Downey MD Date of Service: 10/26/24 Procedure(s): MR shoulder RT wo con Accession Number(s): [id number] cc: Adriana Palencia MD; Kane Downey MD [...] in OV> 10/29/242024 DD/ 23 TD/TT: 10/29/242023 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: Procedure Note Donotuseinterpreter, Image - 10/29/2024 [place] [address] Magnetic Resonance Report Signed Patient: Sudha Dean [facility]#: [id number] : 1970Acct:[id number] Age/Sex: 54 / FADM Date: 10/26/24 Loc: HO.MRI Attending Dr: Kane Downey MD Ordering Physician: Kane Downey MD Date of Service: 10/26/24 Procedure(s): MR shoulder RT wo con Accession Number(s): [id number] cc: Adriana Palencia MD; Kane Downey MD [...] in OV> 10/29/242024 DD/ 23 TD/TT: 10/29/242023 [employer] 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: [facility] External Provider IMG MRI PROCEDURES Final Result * (ABNORMAL) TSH (10/25/2024 10:54 AM EDT) Thyroid Stimulating Hormone 0.06(L) 0.32 - 4.0 uIU/mL [facility] Comment:TSH 3rd Generation ( [employer]) 10/25/2024 10:5 4 AM EDT 10/25/2024 10:54 AM EDT Generic External Data Provider LAB BLOOD ORDERAB LES Final Result [facility] [address] [place] [phone] * T4, Free (10/25/2024 10:54 AM EDT) Free T4 (Free Thyroxine) 1.17 0.71 - 1.85 ng/dL [facility] 10/25/2024 10:5 4 AM EDT 10/25/2024 10:54 AM EDT us Generic External Data Provider LAB BLOOD ORDERAB LES Final Result [facility] [address] [place] [phone] * BI Mammogram Screening Tomosynthesis Bilateral (02/22/2024 8:40 AM EST) Anatomical Region Laterality Modality Breast Bilateral Mammography 02/22/2024 8:40 AM EST Narrative 03/01/2024 4:10 PM EST [facility] [address] [place] [address] Mammography Report Signed Patient: Sudha Dean MR#: [id number] : 1970 Acct:[id number] Age/Sex: 54 / F ADM Date: 02/22/24 Loc: HO.MAMMO Attending Dr: Adriana Sanches MD Ordering Physician: Adriana Palencia MD Results: 1Negative Date of Service: 02/22/24 Follow Up: 1 Year From Orig inal Mammogram Procedure(s): MM tomosynthesis screening BI Accession Number(s): [id number] cc: Adriana Palencia MD EXAMINATION: MM SCREENING [...] by Rachana Pablo DO in OV> 03/01/24 160 DD/ 08 TD/TT: 02/22/24 0903 [employer] 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: Procedure Note Donotjamilainterpreter, Image - 03/01/[facility] [address] [place], [place] [address] Mammography Report Signed Patient: Sudha Dean [facility]#: [id number] : 1970Acct:[id number] Age/Sex: 54 / FADM Date: 02/22/24 Loc: HO.MAMMO Attending Dr: Adriana Sanches MD Ordering Physician: Adriana Palencia [facility] 1Negative Date of Service: 02/22/24Follow Up: 1 Year From Orig inal Mammogram Procedure(s): MM tomosynthesis screening BI Accession Number(s): [id number] cc: Adriana Palencia MD EXAMINATION: MM SCREENING [...] by Rachana Pablo DO in OV> 03/01/24 160 DD/ 9 TD/TT: 02/22/2403 [employer] 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: us Adriana Sanches MD IMG BI [facility] Fin al Result * (ABNORMAL) Lipid Panel with Reflex to Direct LDL (12/13/2023 12:18 PM EDT) Triglycerides 52 <150 mg/dL [facility] Comment:Desirable Triglyceri de: less than 150 mg/dLBorderline High Triglyceride 150-199 mg/dLHigh Triglyceride: 200-499 mg/dLVery High Triglyceride: greater than or equal to 5OO mg/dL Cholesterol 187 <200 mg/dL [facility] Comment:Desirable Cholestero l: less than 200 mg/dLBorderline High Cholesterol: 200-239 mg/dLHigh Cholesterol: greater than 239 mg/dL LDL Cholesterol Calculated 109(H) <100 mg/dL [facility] Comment:Desirable LDL: less than 100 mg/dLNear Optimal/Above Optimal LDL: 110- 129 mg/dLBorderline High LDL: 130-159 mg/dLHigh LDL: 160-189 mg/dLVery High LDL: greater than or equal to 190 mg/dL HDL Cholesterol 68 >40 mg/dL [facility] Comment:Desirable HDL: great er than 40 mg/dL Note: This HDL assay may give artificially low results in patients with liver disease. Blood 12/13/2023 12:1 8 PM EDT 12/13/2023 1:25 PM EDT us Adriana Sanches MD LAB BLOOD ORDERABLES Final Result [facility] [address] [place] [phone] * Hepatitis C Viral RNA, Quantitative, Real-Time PCR (12/13/2023 12:18 PM EDT) Hepatitis C Viral Load <15 NOT DETECTED NOT DETECTED IU/mL [facility] HCV Log PCR <1.18 NOT DETECTED NOT DETECTED Log IU/mL [facility] Comment:For additional infor gera, please refer tohttp://education.[employer].edulio/faq/DLZ51n0(This link is being provided for informational/educational purposes only.)THIS TEST WAS PERFORMED AT:[facility] [place] [phone] KENNEDY MD Blood 12/13/2023 12:1 8 PM EDT 12/13/2023 1:25 PM EDT Adriana Sanches MD LAB BLOOD ORDERABLES Final Result Performing Organization Address [facility]/ZIP Co de Phone Number [facility] [address] [place] [phone] * HIV-1/2 Antigen and Antibodies, Fourth Generation, with Reflexes (12/13/2023 12:18 PM EDT) Pathologist [facility] HIV AB/AG Nonreactive Nonreactive [facility] Comment:HIV-1 p24 Ag and/or HIV-1/HIV-2 Ab not detected.A test result that is nonreactive does not exclude thepossibility of exposure to or infection with HIV-1 and/orHIV-2. Nonreactive results in this assay for individualswith prior exposure to HIV-1 and/or HIV-2 may be due toantigen and antibody levels that are below the limit ofdetection of this assay.The [employer] HIV Ag/Ab Combo assay result andsupplemental assay results should be interpreted inconjunction with the patient's clinical presentation,history and other laboratory results. If the results areinconsistent with clinical evidence, additional testing issuggested to confirm the result. Blood Venous blood specimen / Unknown 12/13/2023 12:18 PM EDT 12/13/2023 1:15 PM EDT us Adriana Sanches MD LAB BLOOD ORDERABLES Final Result Performing Organization Address [facility]/ZIP Co de Phone Number [facility] [address] [place] [phone] * Hm Pap Smear (07/02/2021) Pap Negative for intraephithelial lesion or malignancy Negative for intraephithelial lesion or malignancy, Other HPV Undetected Historical Provider MD HEALTH MAINTENANCE Final Result from Last 3 Months or Most Recently Relevant to Health Maintenance Insurance [facility] STANDARD [facility] ONE [facility] < 65 Care Teams Rn Progressive Care Relationship Specialty Start Date End Date Barciona Sanches, Ayala, MD [address] [place] [address] PCP - General Family Medicine 06/01/18
--- OUTSIDE RECORDS SUMMARY | 2025-01-14 04:07 | XMS_ITS | Encounter Summary ---
Author Organization [employer] Address [address] [place] [address] 7 [place] [address] Care Team Providers Care Proprietary Trader Name Role Phone Adriana Palencia MD Primary Care Provide r Reason for Visit * Reason Comments Med Refill Encounter Details Date Type Department Care Team ([facility] st Contact Info) Description 09/25/2022 Refill [facility] MEDICINE [address] [place] [address] Adriana Palencia MD [address] [place] [address] Fibromyalgia Social History Tobacco Use Types Packs/Day [...] documented as of this encounter Care Teams Proprietary Trader Relationship Specialty Start Date End Date Adriana Palencia MD [address] [place] [address] PCP - General Family Medicine 06/01/18 documented as of this encounter
--- OUTSIDE RECORDS SUMMARY | 2025-01-14 04:07 | XMS_ITS | Clinical Summary ---
Author Organization [facility] Address [address] [place], [place] [phone] Phone Care Team Providers Care Bench Inspector Name Role Phone Unknown, Unknown Primary Care [...] MEDICARE PART A & B Care Teams Bench Inspector Relationship Specialty Start Date End Date Unknown, Unknown, PCP - General 04/21/17 Additional Source Comments The information contained in this document represents components of the legal health record. It is not the complete legal health record.[facility]
--- OUTSIDE RECORDS SUMMARY | 2025-01-14 04:07 | XMS_ITS | Clinical Summary ---
Author Organization [facility] Address [address] [place] [address] Phone Care Team Providers Care Insurance Premium Auditor Name Role Phone Maribel Garcia XANDER Primary [...] 08/04/2020, 07/07/2020 Influenza Vaccine (#1) 2024 02/06/2023 RSV Immunization Adult Patients (1 - 1-dose 75+ series) 2045 Hepatitis [...] file Type:Not on file Address: [place] [phone] Care Teams Insurance Premium Auditor Relationship Specialty Start Date End Date Maribel Garcia FNP PCP - General Internal Medicine 04/11/13
--- OUTSIDE RECORDS SUMMARY | 2025-01-14 04:07 | XMS_ITS | Encounter Summary ---
Author Organization [employer] Address [address] [facility] 7t [place] [address] Care Team Providers Care Health Care Marketing Manager Name Role Phone Adriana Palencia MD Primary Care Provide r Reason for Visit * Reason Comments Med Refill Encounter Details Date Type Department Care Team ([facility] st Contact Info) Description 08/02/2024 Refill [facility] MEDICINE [address] [place] [address] Adriana Palencia MD [address] [place] [address] Class 1 obesity due to excess calories [...] documented as of this encounter Care Teams Health Care Marketing Manager Relationship Specialty Start Date End Date Adriana Palencia MD [address] [place] [address] PCP - General Family Medicine 06/01/18 documented as of this encounter
--- OUTSIDE RECORDS SUMMARY | 2025-01-14 04:07 | XMS_ITS | Encounter Summary ---
Author Organization [employer] Address [address] [place] [address] 7 [place] [address] Care Team Providers Care International Trade Compliance Manager Name Role Phone Adriana Palencia MD Primary Care Provide r Reason for Visit * Reason Comments Med Refill Encounter Details Date Type Department Care Team ([facility] st Contact Info) Description 01/10/2023 Refill [facility] MEDICINE [address] [place] [address] Adriana Palencia MD [address] [place] [address] Social History Tobacco Use Types Packs/Day Years [...] documented as of this encounter Care Teams International Trade Compliance Manager Relationship Specialty Start Date End Date Adriana Palencia MD [address] [place] [address] PCP - General Family Medicine 06/01/18 documented as of this encounter
--- OUTSIDE RECORDS SUMMARY | 2025-01-14 04:07 | XMS_ITS | Encounter Summary ---
Author Organization [employer] Address [address] [facility] 7 [place] [address] Care Team Providers Care Mill Attendant Name Role Phone Adriana Palencia MD Primary Care Provide r Reason for Visit * Reason Comments Med Refill Encounter Details Date Type Department Care Team ([facility] st Contact Info) Description 09/12/2024 Refill [facility] MEDICINE [address] [place] [address] Adriana Palencia MD [address] [place] [address] Acquired hypothyroidism Social History Tobacco Use Types [...] documented as of this encounter Care Teams Mill Attendant Relationship Specialty Start Date End Date Adriana Palencia MD [address] [place] [address] PCP - General Family Medicine 06/01/18 documented as of this encounter
--- OUTSIDE RECORDS SUMMARY | 2025-01-14 04:07 | XMS_ITS | Encounter Summary ---
Author Organization [employer] Address [address] [facility] 7t [place] [address] Care Team Providers Care Environmental Marketer Name Role Phone Adriana Palencia MD Primary Care Provide r Reason for Visit * Reason Comments Med Refill Encounter Details Date Type Department Care Team ([facility] st Contact Info) Description 07/19/2024 Refill [facility] MED[facility]INE [address] [place] [address] Adriana Palencia MD [address] [place] [address] Class 1 obesity due to excess calories [...] documented as of this encounter Care Teams Environmental Marketer Relationship Specialty Start Date End Date Adriana Palencia MD [address] [place] [address] PCP - General Family Medicine 06/01/18 documented as of this encounter
--- OUTSIDE RECORDS SUMMARY | 2025-01-14 04:07 | XMS_ITS | Encounter Summary ---
Author Organization [employer] Address [address] [facility] 7 [place] [address] Care Team Providers Care Skip Locator Name Role Phone Adriana Palencia MD Primary Care Provide r Reason for Visit * Reason Comments Med Refill Encounter Details Date Type Department Care Team ([facility] st Contact Info) Description 08/31/2023 Refill [facility] MEDICINE [address] [place] [address] Adriana Palencia MD [address] [place] [address] Gastroesophageal reflux disease without esophagitis Social History [...] documented as of this encounter Care Teams Skip Locator Relationship Specialty Start Date End Date Adriana Palencia MD [address] [place] [address] PCP - General Family Medicine 06/01/18 documented as of this encounter
--- OUTSIDE RECORDS SUMMARY | 2025-01-14 04:07 | XMS_ITS | Encounter Summary ---
Author Organization [employer] Address [address] [place] [address] 7t [place] [address] Care Team Providers Care Sourcer Name Role Phone Adriana Palencia MD Primary Care Provide r Encounter Details Date Type Department Care Team (Late st Contact Info) Description 03/17/2022 Abstract [facility] MEDICINE [address] [place] [address] ProviderGurvinder MD Social History Tobacco Use Types [...] on filedocumented in this encounter Care Teams Sourcer Relationship Specialty Start Date End Date Adriana Palencia MD [address] [place] [address] PCP - General Family Medicine 06/01/18 documented as of this encounter
--- OUTSIDE RECORDS SUMMARY | 2025-01-14 04:07 | XMS_ITS | Encounter Summary ---
Author Organization [employer] Address [address] [facility] 7 [place] [address] Care Team Providers Care Automated Cutting Machine Operator Name Role Phone Adriana Palencia MD Primary Care Provide r Reason for Visit * Reason Comments Med Refill Encounter Details Date Type Department Care Team ([facility] st Contact Info) Description 12/02/2022 Refill [facility] MEDICINE [address] [place] [address] Bree Ag MD [address] [place] [address] Generalized anxiety disorder Social History Tobacco Use [...] documented as of this encounter Care Teams Automated Cutting Machine Operator Relationship Specialty Start Date End Date Adriana Palencia MD [address] [place] [address] PCP - General Family Medicine 06/01/18 documented as of this encounter
--- OUTSIDE RECORDS SUMMARY | 2025-01-14 04:07 | XMS_ITS | Encounter Summary ---
Author Organization [employer] Address [address] [facility] 7t [place] [address] Care Team Providers Care Automotive Engineering Teacher Name Role Phone Adriana Palencia MD Primary Care Provide r Reason for Visit * Reason Comments Med Refill Encounter Details Date Type Department Care Team ([facility] st Contact Info) Description 04/14/2023 Refill [facility] MEDICINE [address] [place] [address] Heather Wei MD [address] [place] [address] Gastroesophageal reflux disease without esophagitis Social History [...] documented as of this encounter Care Teams Automotive Engineering Teacher Relationship Specialty Start Date End Date Adriana Palencia MD [address] [place] [address] PCP - General Family Medicine 06/01/18 documented as of this encounter
--- OUTSIDE RECORDS SUMMARY | 2025-01-14 04:07 | XMS_ITS | Encounter Summary ---
Author Organization [employer] Address [address] [facility] 7t [place] [address] Care Team Providers Care Mediator Name Role Phone Adriana Palencia MD Primary Care Provide r Reason for Visit * Reason Comments Med Change Request Encounter Details Date Type Department Care Team ([facility] st Contact Info) Description 08/06/2024 Refill [facility] MEDICINE [address] [place] [address] Adriana Palencia MD [address] [place] [address] Class 1 obesity due to excess calories [...] documented as of this encounter Care Teams Mediator Relationship Specialty Start Date End Date Adriana Palencia MD [address] [place] [address] PCP - General Family Medicine 06/01/18 documented as of this encounter
--- OUTSIDE RECORDS SUMMARY | 2025-01-14 04:07 | XMS_ITS | Encounter Summary ---
Author Organization [employer] Address [address] [facility] 7t [place] [address] Care Team Providers Care Pneudraulic Systems Mechanic Name Role Phone Adriana Palencia MD Primary Care Provide r Reason for Visit * Reason Comments Med Change Request Encounter Details Date Type Department Care Team ([facility] st Contact Info) Description 09/10/2024 Refill [facility] MEDICINE [address] [place] [address] Adriana Palencia MD [address] [place] [address] Class 1 obesity due to excess calories [...] documented as of this encounter Care Teams Pneudraulic Systems Mechanic Relationship Specialty Start Date End Date Adriana Palencia MD [address] [place] [address] PCP - General Family Medicine 06/01/18 documented as of this encounter
--- OUTSIDE RECORDS SUMMARY | 2025-01-14 04:07 | XMS_ITS | Encounter Summary ---
Author Organization [employer] Address [address] [facility] [address] 7t [place] [address] Care Team Providers Care Vegetable Tier Name Role Phone Adriana Palencia MD Primary Care Provide r Encounter Details Date Type Department Care Team ([facility] st Contact Info) Description 03/14/2023 Abstract [facility] MEDICINE [address] [place] [address] Eliane Raman Social History Tobacco Use Types [...] documented as of this encounter Care Teams Vegetable Tier Relationship Specialty Start Date End Date Adriana Palencia MD [address] [place] [address] PCP - General Family Medicine 06/01/18 documented as of this encounter
--- OUTSIDE RECORDS SUMMARY | 2025-01-14 04:07 | XMS_ITS | Encounter Summary ---
Author Organization [employer] Address [address] 7[address] [place] [address] Care Team Providers Care Health Equipment Servicer Name Role Phone Adriana Palencia MD Primary Care Provide r Encounter Details Date Type Department Care Team (Late st Contact Info) Description 01/13/2025 Orders Only GENERIC EXTERNAL DATA [...] Procedure Name Priority Date/Time Associated Diagnosis Comments INFLUENZA A B2 ID NOW (MAC) Routine 01/13/2025 11:25 PM EDT STREP A NUCLEIC ACID Routine 01/13/2025 11:25 PM EDT COVID-19 ID NOW (MAC) Routine 01/13/2025 11:25 PM EDT documented in this encounter Results * (ABNORMAL) COVID-19 ID NOW (MAC) (01/13/2025 11:25 PM EDT) IDNOW SERIAL# [id number] [facility] COVID-19 TEST Positive (A) Negative [facility] COVID-19 NOTE See Note [facility] Comment: Results are for the identification of SARS-CoV2 RNA. TheSARS-CoV2 RNA is generally detectable in respiratory samplesduring the acute phase of infection. Positive results areindicative of the presence of SARS-CoV-2 RNA; clinicalcorrelation with patient history and other diagnosticinformation is necessary to determine patient infectionstatus. Positive results do not rule out bacterial infectionor co- infection with other viruses.Testing facilities within the [place] and [facility] are required to report all positive results [...] use by authorized laboratories.Testing performed on the Mac ID NOW utilizing NAAT. 01/13/2025 11:2 5 PM EDT 01/13/2025 11:39 PM EDT us Generic External Data Provider LAB MOLECULAR KENAN GNOSTICS ORDERABLES Final Result Performing Organization Address [facility] Co de Phone Number [facility] [address] [place] [phone] * Influenza A B2 ID NOW ([employer]) (01/13/2025 11:25 PM EDT) IDNOW SERIAL# [id number] [facility] Influenza A Negative Negative [facility] Influenza B2 Negative Negative [facility] Influenza A B2 Note See Note [facility] Comment:The Mac ID NOW In [...] EDT us Generic External Data Provider LAB MICROBIOLOGY - GENERAL ORDERABLES Final Result Performing Organization Address [facility]/ZIP Co de Phone Number [facility] [address] [place] [phone] * Strep A Nucleic Acid (01/13/2025 11:25 PM EDT) IDNOW SERIAL# [id number] [facility] Strep A Nucleic Acid Negative Negative [facility] Comment:All test results mus t be correlated with clinical findings.This test has not been evaluated for monitoring treatment ofinfection.Additional follow-up testing using the culture method isrequired if the result is negative and clinical symptomspersist, or in the event of an acute rheumatic feveroutbreak. 01/13/2025 11:2 5 PM EDT 01/13/2025 11:39 PM EDT us Generic External Data Provider LAB MICROBIOLOGY - GENERAL ORDERABLES Final Result [facility] [address] [place] [phone] documented in this encounter Visit Diagnoses Not on filedocumented in this encounter Additional Health Concerns Assessment Noted Time PHQ-9 Depression Total Score: 8 12/10/19 25 3:38 PM EDT documented as of this encounter Care Teams Health Equipment Servicer Relationship Specialty Start Date End Date Adriana Palencia MD [address] [place] [address] PCP - General Family Medicine 06/01/18 documented as of this encounter
--- OUTSIDE RECORDS SUMMARY | 2025-01-14 04:07 | XMS_ITS | Encounter Summary ---
Author Organization [employer] Address [address] [place] [address] 7t [place] [address] Care Team Providers Care Small Engine Technician Name Role Phone Adriana Palencia MD Primary Care Provide r Encounter Details Date Type Department Care Team (Late st Contact Info) Description 03/17/2022 Abstract [facility] MEDICINE [address] [place] [address] ProviderGurvinder MD Social History Tobacco Use Types [...] on filedocumented in this encounter Care Teams Small Engine Technician Relationship Specialty Start Date End Date Adriana Palencia MD [address] [place] [address] PCP - General Family Medicine 06/01/18 documented as of this encounter
--- OUTSIDE RECORDS SUMMARY | 2025-01-14 04:07 | XMS_ITS | Clinical Summary ---
Author Organization [facility] Address [address] [place] [address] Care Team Providers Care Residential Sales Executive Name Role Phone Unavailable Primary Care Provider [...]
--- OUTSIDE RECORDS SUMMARY | 2025-01-14 04:07 | XMS_ITS | Encounter Summary ---
Author Organization [employer] Address [address] [facility] 7t [place] [address] Care Team Providers Care Miner Name Role Phone Adriana Palencia MD Primary Care Provide r Reason for Visit * Reason Comments Med Refill Encounter Details Date Type Department Care Team ([facility] st Contact Info) Description 07/29/2024 Refill [facility] MEDICINE [address] [place] [address] Adriana Palencia MD [address] [place] [address] Class 1 obesity due to excess calories [...] documented as of this encounter Care Teams Miner Relationship Specialty Start Date End Date Adriana Palencia MD [address] [place] [address] PCP - General Family Medicine 06/01/18 documented as of this encounter
--- OUTSIDE RECORDS SUMMARY | 2025-01-14 04:07 | XMS_ITS | Encounter Summary ---
Author Organization [employer] Address [address] [facility] 7t [place] [address] Care Team Providers Care Construction Driver Name Role Phone Adriana Palencia MD Primary Care Provide r Reason for Visit * Reason Comments Med Refill Encounter Details Date Type Department Care Team (Late st Contact Info) Description 11/24/2022 Refill [facility]INE [address] [place] [address] Lilia Mcgregor FNP Migraine without aura and [...] documented as of this encounter Care Teams Construction Driver Relationship Specialty Start Date End Date Adriana Palencia MD [address] [place] [address] PCP - General Family Medicine 06/01/18 documented as of this encounter
--- OUTSIDE RECORDS SUMMARY | 2025-01-14 04:07 | XMS_ITS | Encounter Summary ---
Author Organization [employer] Address [address] [facility] [address] 7t [place] [address] Care Team Providers Care Senior Mechanical Development Engineer Name Role Phone Adriana Palencia MD Primary Care Provide r Reason for Visit * Reason Comments Med Refill Encounter Details Date Type Department Care Team ([facility] st Contact Info) Description 03/10/2024 Refill [facility] [address] [place] [address] Adriana Palencia MD [address] [place] [address] Vitamin B12 deficiency Social History Tobacco Use [...] as of this encounter Care Teams Senior Mechanical Development Engineer Relationship Specialty Start Date End Date Adriana Palencia MD [address] [place] [address] PCP - General Family Medicine 06/01/18 documented as of this encounter
--- OUTSIDE RECORDS SUMMARY | 2025-01-14 04:07 | XMS_ITS | Encounter Summary ---
Author Organization [employer] Address [address] [place] [address] 7 [place] [address] Care Team Providers Care Corporate Securities Research Analyst Name Role Phone Adriana Palencia MD Primary Care Provide r Reason for Visit * Reason Comments Med Refill Encounter Details Date Type Department Care Team (Late st Contact Info) Description 11/02/2022 Refill [facility] MEDICINE [address] [place] [address] Lilia Mcgregor FNP Social History Tobacco Use [...] documented as of this encounter Care Teams Corporate Securities Research Analyst Relationship Specialty Start Date End Date Adriana Palencia MD [address] [place] [address] PCP - General Family Medicine 06/01/18 documented as of this encounter
--- OUTSIDE RECORDS SUMMARY | 2025-01-14 04:07 | XMS_ITS | Encounter Summary ---
Author Organization [employer] Address [address] [facility] 7t [place] [address] Care Team Providers Care Imagery Intelligence Name Role Phone Adriana Palencia MD Primary Care Provide r Reason for Visit * Reason Comments Med Refill Encounter Details Date Type Department Care Team ([facility] st Contact Info) Description 09/07/2024 Refill [facility] MEDICINE [address] [place] [address] Adriana Palencia MD [address] [place] [address] Polyarthralgia; Class 1 obesity due to excess [...] documented as of this encounter Care Teams Imagery Intelligence Relationship Specialty Start Date End Date Adriana Palencia MD [address] [place] [address] PCP - General Family Medicine 06/01/18 documented as of this encounter
--- OUTSIDE RECORDS SUMMARY | 2025-01-14 04:07 | XMS_ITS | Encounter Summary ---
Author Organization [facility] Address [address] [place] [address] Phone Care Team Providers Care Marine Farmer Name Role Phone Unknown, Unknown Primary Care Provider Nikia pina Encounter Details Date Type Department Care Team (Latest Contact Info) Description 04/21/2017 Ancillary Orders [facility] [address] [place] [address] [place] [address] Hector Zamora DO [address] [place] [address] Palpitations; Chest pain, unspecified type; Syncope, unspecified [...] type documented in this encounter Care Teams Marine Farmer Relationship Specialty Start Date End Date Unknown, Unknown, MD PCP - General 04/21/17 documented as of this encounter Additional Source Comments The information contained in this document represents components of the legal health record. It is not the complete legal health record.[facility]
--- OUTSIDE RECORDS SUMMARY | 2025-01-14 04:07 | XMS_ITS | Encounter Summary ---
Author Organization [employer] Address [address] [facility] 7 [place] [address] Care Team Providers Care It Analyst Name Role Phone Adriana Palencia MD Primary Care Provide r Encounter Details Date Type Department Care Team ([facility] st Contact Info) Description 05/17/2022 Telephone [facility] MEDICINE [address] [place] [address] Rosemary Espana RN [address] [place] [address] Social History Tobacco Use Types Packs/Day Years [...] on filedocumented in this encounter Care Teams It Analyst Relationship Specialty Start Date End Date Adriana Palencia MD [address] [place] [address] PCP - General Family Medicine 06/01/18 documented as of this encounter
--- OUTSIDE RECORDS SUMMARY | 2025-01-14 04:07 | XMS_ITS | Encounter Summary ---
Author Organization [facility] Address [address] [facility] 7t [place] [address] Care Team Providers Care Plastics Nurse Name Role Phone Adriana Palencia MD Primary Care Provide r Encounter Details Date Type Department Care Team ([facility] st Contact Info) Description 01/18/2023 Abstract [facility] MEDICINE [address] [place] [address] Eliane Raman Social History Tobacco Use Types [...] documented as of this encounter Care Teams Plastics Nurse Relationship Specialty Start Date End Date Adriana Palencia MD [address] [place] [address] PCP - General Family Medicine 06/01/18 documented as of this encounter
--- OUTSIDE RECORDS SUMMARY | 2025-01-14 04:07 | XMS_ITS | Encounter Summary ---
Author Organization [employer] Address [address] [facility] 7t [place] [address] Care Team Providers Care Clinical Laboratory Aides Teacher Name Role Phone Adriana Palencia MD Primary Care Provide r Reason for Visit * Reason Comments Med Refill Encounter Details Date Type Department Care Team ([facility] st Contact Info) Description 08/03/2024 Refill [facility] MEDICINE [address] [place] [address] Adriana Palencia MD [address] [place] [address] Class 1 obesity due to excess calories [...] as of this encounter Care Teams Clinical Laboratory Aides Teacher Relationship Specialty Start Date End Date Adriana Palencia MD [address] [place] [address] PCP - General Family Medicine 06/01/18 documented as of this encounter
--- OUTSIDE RECORDS SUMMARY | 2025-01-14 04:07 | XMS_ITS | Encounter Summary ---
Author Organization [employer] Address [address] [facility] 7 [place] [address] Care Team Providers Care Social And Human Services Assistant Name Role Phone Adriana Palencia MD Primary Care Provide r Reason for Visit * Reason Onset Date Comments Med Refill 05/21/2024 Encounter Details Date Type Department Care Team ([facility] st Contact Info) Description 05/21/2024 Telephone [facility] MEDICINE [address] [place] [address] Adriana Palencia MD [address] [place] [address] Med Refill Social History Tobacco Use Types [...] auto-injector To be sent to: [facility]/pharmacy #[id number] [place], [place] - [address] [place] [address] documented in this encounter Plan of Treatment Not on file documented as of this encounter Visit Diagnoses Not on filedocumented in this encounter Additional Health Concerns Assessment Noted Time PHQ-9 Depression Total Score: 15 024 9:44 AM EST documented as of this encounter Care Teams Social And Human Services Assistant Relationship Specialty Start Date End Date Adriana Palencia MD [address] [place] [address] PCP - General Family Medicine 06/01/18 documented as of this encounter
--- OUTSIDE RECORDS SUMMARY | 2025-01-14 04:07 | XMS_ITS | Encounter Summary ---
Author Organization [employer] Address [address] [facility] 7 [place] [address] Care Team Providers Care Tar Leveler Name Role Phone Adriana Palencia MD Primary Care Provide r Reason for Visit * Reason Onset Date Comments Letter Needed 04/18/2023 Encounter Details Date Type Department Care Team ([facility] st Contact Info) Description 04/18/2023 Telephone [facility] MEDICINE [address] [place] [address] Adriana Palencia MD [address] [place] [address] Letter Needed Social History Tobacco Use Types [...] causing herasthma attacks. Please contact pt @ [phone] Belizean Speaker documented in this encounter Plan of Treatment Not on file documented as of this encounter Visit Diagnoses Not on filedocumented in this encounter Additional Health Concerns Assessment Noted Time PHQ-9 Depression Total Score: 14 023 3:05 PM EDT documented as of this encounter Care Teams Tar Leveler Relationship Specialty Start Date End Date Adriana Paelncia MD [address] [place] [address] PCP - General Family Medicine 06/01/18 documented as of this encounter
== END 2025-01-14 04:00 | disposition left against medical advice (07) ==
LOC: HO.ED 01-14 04:03
PROVIDERS: Emergency Provider Emergency Medicine; PCP Internal Medicine
DX: U07.1 COVID-19 (principal); J02.9 Acute pharyngitis, unspecified; R50.9 Fever, unspecified; Z53.29 Procedure and treatment not carried out because of patient's decision for other reasons
CPT/HCPCS: 87502; 87635; 87651; 99282; 99283

== ENCOUNTER 2025-01-23 14:31 | Outpatient (AMB) | payer OTHER, SELFPAY ==
[2025-01-23 14:42] VITALS: BP 100/64; PULSE 60; O2SAT 95; BMI 26.9
--- NOTE | 2025-01-23 14:42 | MHC.OFFVIS ---
Vital Signs 01/23/25 14:42 Height 5 ft 3 in Weight 152 lb 1.903 oz BMI 26.9 BP 100/64 Blood Pressure Location Lt brachial Position Sitting Pulse 60 Pulse Source Pulse Oximeter Pulse Oximetry (%) 95 Oxygen Delivery Method Room Air Intake Visit Reasons: hypothyroidism Intake Note: Patient present today for hypothyroidism office visit. Professor Of Biochemistry Required: Yes Professor Of Biochemistry Language: Gunnery/Ordnance Officer Services: Professor Of Biochemistry Present Professor Of Biochemistry Name: Jessica Information Interpreted: non-clinical & clinical Accompanied by: Self / Same As Patient Allergies diphenhydramine (From BENADRYL) Allergy (Intermediate, Verified 01/23/25 14:47) SEVERE LETHARGY oxycodone (From Percocet) Adverse Reaction (Verified 01/23/25 14:47) Anxiety Medication List - Last Reconciled 01/23/25 by Mariana Guillermo MD albuterol sulfate 90 mcg/actuation 2 puffs inhalation Q4-6H PRN albuterol sulfate 90 mcg/actuation 2 inhalations inhalation Q4-6H PRN baclofen 10 mg PO TID benzonatate 100 mg PO BID PRN diclofenac sodium 1% topical hydroxyzine HCl 25 mg PO TID PRN levothyroxine (Synthroid) 112 mcg PO DAILY lorazepam 0.5 mg PO BEDTIME PRN naproxen (Naprosyn) 500 mg PO BID PRN omeprazole 20 mg PO DAILY ondansetron 4 mg PO DAILY PRN 30 days sumatriptan succinate take 1 tab at onset of headache; if no relief may repeat 1 tab after at least 2 hrs; max = 4 tabs/24 hr sumatriptan succinate take 1 tab at onset of headache; if no relief may repeat 1 tab after at least 2 hrs; PO 30 days valacyclovir 500 mg PO DAILY HPI Comments Details: 55 yo female today for fup visit, for hypothyroidism HPI She was diagnosed 2005, secondary to Joe's disease She is Currently on levothyroxine generic 125 mcg . Daily She is now 100 % compliance. She has a Good method of administration. Family History: Positive hypothyroidism in mother. Thyroid US 06/25/16, small thyroid no nodules. Pharmacy: [facility] Last set of blood work from January 2024 showed normal TSH and free T4. She has not had recent TFTs. Today she denies any tiredness. Overall doing well. Interval history Blood work from 10/25/2024 showed TSH was low at 0.06 with normal free T4 1.17 Patient's levothyroxine was reduced to 112 mcg daily forgot to do blood work before this appt Physical exam General: sitting comfortably in no acute distress HEENT: normocephalic/atraumatic, symmetrical, no thyromegaly , no dorsocervical or supraclavicular fat pads Cardiac: normal heart sounds Pulm: normal breath sounds B/L, no added breath sounds Abd: not distended, no tenderness Extremities: no edema, no signs of myxedema Neuro: AAO x3, Speech: normal, no facial droop, moving all 4 extremities Laboratory Tests Laboratory Tests 01/22/24 15:39 TSH 0.68 Free T4 1.06 Laboratory Tests 10/25/24 10:54 TSH 0.06 L Free T4 1.17 [facility] Medical History Panic attacks Asthma Depression Vitamin D deficiency Hypothyroidism Thyroid activity decreased Surgical History Hx of cervical polypectomy Hx of lithotripsy Hx of gastric bypass Family History Father Leukemia Cancer Mother Diabetes mellitus Hypertension Social History Household Members: Spouse Housing: Apartment Alcohol intake: former Comment: medicated with ketorolac and po tylenol Patient Tobacco Use Status: Never used Tobacco Current occupational status: unemployed Sexual orientation: Straight/Heterosexual Gender identity: Female Female Reproductive History Menstrual Age of Menarche: 12 Assessment & Plan Assessment & Plan (1) Hypothyroidism: Code(s): E03.9 - Hypothyroidism, unspecified Category: Medical Qualifiers: 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 Currently on levothyroxine generic 125 mcg daily. Blood work from 10/25/2024 showed TSH was low at 0.06 with normal free T4 1.17 Patient's levothyroxine was reduced to 112 mcg daily. She was supposed to repeat blood work prior to this visit but forgot to do that. Overall she is doing well. I have asked her to do blood work today. 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
== END 2025-01-23 14:56 | disposition home or self-care (01) ==
LOC: HO.ENCR 14:32
PROVIDERS: PCP Internal Medicine; Visit Provider Student in an Organized Health Care Education/Training Program
DX: E03.8 Other specified hypothyroidism (principal); E06.3 Autoimmune thyroiditis
CPT/HCPCS: 99213

== ENCOUNTER 2025-01-23 14:31 | Outpatient (REF) | payer OTHER, SELFPAY ==
[2025-01-23 17:02] LABS: Free T4 (Free Thyroxine) 0.99 ng/dL (0.71-1.85); Thyroid Stimulating Hormone 8.57 uIU/mL (0.32-4.0)
== END 2025-01-23 14:32 | disposition home or self-care (01) ==
LOC: HO.LAB 14:31
PROVIDERS: PCP Internal Medicine; Visit Provider Student in an Organized Health Care Education/Training Program
DX: E06.3 Autoimmune thyroiditis (principal); E03.8 Other specified hypothyroidism; Z79.899 Other long term (current) drug therapy
CPT/HCPCS: 36415; 84439; 84443; 99212

== ENCOUNTER 2025-02-14 13:06 | Emergency (ER) | payer OTHER, SELFPAY ==
--- NOTE | 2025-02-14 | ECG_ITS ---
Test Reason : palpitations Blood Pressure : */* mmHG Vent. Rate : 67 BPM Atrial Rate : 67 BPM P-R Int : 124 ms QRS Dur : 74 ms QT Int : 404 ms P-R-T Axes : 40 44 62 degrees QTcB Int : 426 ms Normal sinus rhythm Normal ECG When compared with ECG of 10-Jun-2024 12:26, No significant change was found Referred By: Generic ED Physician Electronically Signed By: GIACOMO CASTANEDA
--- NOTE | ~2025-02-14 | XR_ITS ---
EXAMINATION: XR CHEST CLINICAL INFORMATION: shortness of breath COMPARISON: 02/23/2023 TECHNIQUE: 2 views of the chest were obtained. FINDINGS: No significant abnormality is noted involving the heart, lungs, mediastinum, bony thorax or soft tissues. Surgical clips are present left of the midline projecting over the left hemidiaphragm. XR/XR chest 2V IMPRESSION: No acute disease Electronically signed by: Parminder Velasco MD 02/14/2025 05:00 PM EDT
[2025-02-14 13:11] VITALS: BP 134/60; PULSE 67; RESP 18; TEMP 36.1; O2SAT 100; BMI 26.7
--- NOTE | 2025-02-14 14:10 | ED.GENADULT ---
HPI - General Adult General Chief complaint: Arrhythmia/Palpitations Stated complaint: Chest Pain Time Seen by Provider: 02/14/25 15:46 History of Present Illness ED Provider: Dominga BELLO narrative: The patient is a 55-year-old woman who says that last night she has a sense of her heart racing and she also felt somewhat anxious. She was not sure she was having a panic attack or not. She took a dose of her lorazepam which she has a at home and her symptoms subsided. This morning however her symptoms returned and were much more persistent. She had a sense of profound palpitations for over an hour or perhaps a few hours. She felt short of breath. Ultimately she came to the emergency room. Here in the emergency room she is no longer feeling that sense of palpitations. She is feeling somewhat better. There was some associated nausea but no vomiting. No abdominal pain. The patient is not on any hormonal medication. She is not a smoker. She has no history of thromboembolic disease. She has had no pain or swelling in her legs. No fever, sweats, chills. She is on Synthroid for her hypothyroidism. She says that a few years ago she had an episode of palpitations. She was referred to a senior net developer. She had testing that included a wearable monitor. She says that everything came back negative. She says that the symptoms today are somewhat similar. Related Data Home Medications ?Medication ?Instructions ?Recorded ?Confirmed lorazepam 0.5 mg tablet 0.5 mg PO BEDTIME PRN Anxiety 03/05/20 01/23/25 omeprazole 20 mg capsule,delayed 20 mg PO DAILY 06/08/21 01/23/25 release valacyclovir 500 mg tablet 500 mg PO DAILY 01/04/22 01/23/25 diclofenac sodium 1 % topical gel topical 06/01/23 01/23/25 baclofen 10 mg tablet 10 mg PO TID 12/19/24 01/23/25 hydroxyzine HCl 25 mg tablet 25 mg PO TID PRN 12/19/24 01/23/25 Previous Rx's ?Medication ?Instructions ?Recorded albuterol sulfate 90 mcg/actuation 2 puff inhalation Q4-6H PRN 02/26/20 aerosol inhaler shortness of breath or wheezing #6.7 grams albuterol sulfate 90 mcg/actuation 2 inh inhalation Q4-6H PRN 02/23/23 breath activated powder inhaler shortness of breath or wheezing #1 ea benzonatate 100 mg capsule 100 mg PO BID PRN cough #20 caps 02/23/23 naproxen 500 mg tablet (Naprosyn) 500 mg PO BID PRN pain #10 tabs 12/14/24 ondansetron 4 mg disintegrating 4 mg PO DAILY PRN nausea and 12/19/24 tablet vomiting 30 days #10 tabs sumatriptan succinate 50 mg tablet See Rx Instructions PO .COMPLEX 30 12/19/24 days #10 tabs sumatriptan succinate 50 mg tablet See Rx Instructions PO .COMPLEX 12/25/24 #20 tabs levothyroxine 112 mcg tablet See Rx Instructions PO .COMPLEX 01/24/25 (Synthroid) #45 tabs Allergies Allergy/AdvReac Type Severity Reaction Status Date / Time diphenhydramine (From Allergy Intermediate SEVERE Verified 02/14/25 13:13 BENADRYL) LETHARGY oxycodone (From Percocet) AdvReac Anxiety Verified 02/14/25 13:13 Review of Systems Review of Systems: Yes all other systems are reviewed and are negative [facility] Past Medical History Medical History Panic attacks Asthma Depression Vitamin D deficiency Hypothyroidism Thyroid activity decreased Surgical History Hx of cervical polypectomy Hx of lithotripsy Hx of gastric bypass Family History Family History Father Leukemia Cancer Mother Diabetes mellitus Hypertension Social History Social History Household Members: Spouse Housing: Apartment Alcohol intake: former Comment: medicated with ketorolac and po tylenol Patient Tobacco Use Status: Never used Tobacco Smoked in Last 30 Days: No Use of substances other than those prescribed or required for medical reasons: No Advance Directives: No Advance Directives Information Provided: Yes Do you have a plan to hurt others: No Plan Current occupational status: unemployed Sexual orientation: Straight/Heterosexual Gender identity: Female Physical Exam ED Vital Signs: Vital Signs - 24 hr 02/14/25 13:11 02/14/25 15:58 02/14/25 16:47 Temperature 97.0 F 98.1 F Pulse Rate 67 68 67 Respiratory Rate 18 18 17 Blood Pressure 134/60 105/54 L Pulse Oximetry 100 100 Oxygen Delivery Method Room Air Room Air 02/14/25 17:38 Temperature 98.1 F Pulse Rate 67 Respiratory Rate 17 Blood Pressure 105/54 L Pulse Oximetry 100 Oxygen Delivery Method Room Air BMI result Body Mass Index 26.7 Const Other: The patient is a healthy looking 55-year-old who was awake and alert. She does not appear acutely ill or in distress. Orientation/consciousness: patient oriented x3 HENMT Other: The face is symmetrical. ?Mucous membranes moist. Eyes Other: Pupils are round equal, conjunctivae are clear, extraocular movements intact Neck Neck: Yes normal visual inspection, Yes full ROM and Yes no JVD Resp Effort & Inspection: normal respiratory effort Auscultation: clear to auscultation bilaterally Cardio Other: No murmur heard Rate: regular rate Rhythm: regular rhythm Heart sounds: S1 normal heart sound present and S2 normal heart sound present GI Other: Abdomen is soft and nontender. Skin Other: The skin is dry and unremarkable Neuro General: patient oriented x3, gait normal, tone normal, moves all extremities, no focal motor deficits and CN's II-XI intact bilaterally Extrem Other: There is no calf swelling or tenderness. No asymmetry. No peripheral edema. Course Course Course Narrative: This is a Rapid Medical Examination (RME) performed by Abelardo Cruz PA-C in triage. Full HPI, ROS, assessment and treatment plan per primary provider in the Main ED. Hx: 55 yo F here reporting episode of tachycardia last night. thought she was having a panic attack. took her anxiety meds. endorses continued tachycardia, pressure in her neck, feels nervous and short of breath. Plan: labs, ekg Medical Decision Making Medical Decision Making MDM Narrative: The patient is a 55-year-old woman with a history of hypothyroidism on levothyroxine who describes having an episode of significant palpitations last night and then another episode of palpitations today. The patient reports having had a similar episode several years ago when she followed up with the Cardiology and had a negative workup. Today the patient has a an unremarkable EKG. An unremarkable troponin. An on remarkable D-dimer. An unremarkable chest x-ray. Clinically the patient looks well and she is not tachycardic here. She does not have any symptoms of palpitations at the moment. I do not know if the patient had some kind of a tachy dysrhythmia earlier but my suspicion for a dangerous process is very low. I think she may be discharged to follow up with the regular doctor and also with the senior net developer she saw previously. If she is unable to see the senior net developer she saw previously she has been given the contact information for the [facility] cardi[facility] department. Lab Data 02/14/25 15:55 02/14/25 15:55 Labs: Lab Results 02/14/25 02/14/25 Range/Units 15:55 16:14 WBC 6.8 (4.8-10.8) X10*3/uL RBC 4.29 (4.20-5.50) X10*6/uL Hgb 12.6 (12.0-16.0) g/dl Hct 38.4 (37.0-47.0) % MCV 89.5 (80.0-98.0) fL MCH 29.4 (27.0-33.0) pg MCHC 32.8 (31.0-35.0) g/dl RDW 14.3 (11.0-16.0) % Plt Count 146 L (160-400) X10*3/uL MPV 10.3 (9.4-12.3) fL Immature Gran % (Auto) 0.3 (0.0-0.4) % Neut % (Auto) 60.9 (45-73) % Lymph % (Auto) 29.5 (20-40) % [place] % (Auto) 6.8 (2-11) % Eos % (Auto) 1.9 (0-4) % Baso % (Auto) 0.6 (0-2) % Lymph # (Auto) 2.0 (1.2-4.9) X10*3/uL [place] # (Auto) 0.5 (0.1-1.2) X10*3/uL Eos # (Auto) 0.1 (0.0-0.4) X10*3/uL Baso # (Auto) 0.0 (0.0-0.2) X10*3/uL Abs Immat Gran (auto) 0.02 (0.00-0.03) X10*3/uL Absolute Neuts (auto) 4.1 (2.0-8.3) x10*3/uL Absolute Nucleated RBC 0.000 (0.0-0.012) X10*3/uL Nucleated RBC % (auto) 0.0 (0.0-0.2) /100WBC D-Dimer High Sensitivty < 150 NG/ML Sodium 141 (135-145) mmol/L Potassium 4.1 (3.3-5.1) mmol/L Chloride 106 (96-108) mmol/L Carbon Dioxide 27 (22-29) mmol/L Anion Gap 12 (12-20) BUN 16 (9-16) mg/dL Creatinine 0.69 (0.5-1.4) mg/dL Estim Creat Clear Calc 85.5 Estimated GFR > 60 Random Glucose 95 (60-115) mg/dL Calcium 9.6 (8.4-10.2) mg/dL Magnesium 2.1 (1.6-2.6) mg/dL Total Bilirubin 0.3 (0.0-1.0) mg/dL AST 33 H (5-31) U/L ALT 9 (0-31) U/L Alkaline Phosphatase 128 H (39-117) U/L Troponin I High Sens < 2.7 (<3.5-17.0) ng/L Total Protein 7.3 (6.5-8.0) g/dL Albumin 4.4 (3.5-5.0) g/dL Lipase 36 (8-78) U/L TSH 1.51 (0.32-4.0) uIU/mL Independent Interpretation I performed an independent interpretation of an: EKG Interpretation: EKG at 1322 shows normal sinus rhythm at 67 beats per minute. It is a normal EKG. Discharge Plan Discharge Clinical Impression: Palpitations Patient Disposition: Home, Self-Care Instructions: Heart Palpitations (ED) Additional Instructions: Your testing in the emergency room today seems very reassuring. I suspect that this may be similar to what you experienced a few years ago. I think it would be appropriate for you to once again follow up with your primary care doctor and possibly also with the senior net developer you saw previously. In case you have any trouble seeing the senior net developer that you saw previously I have also provided the contact information for the [facility] cardiology office. Please continue your regular medications. Return to the emergency room if you feel significantly worse. Prescriptions: No Action levothyroxine [Synthroid] 112 mcg tablet See Rx Instructions PO .COMPLEX Qty: 45 5RF Rx Instructions: orally ; 112 mcg daily 1 tablet from Monday to Monday and take 1-1/2 pills on Sundays; albuterol sulfate 90 mcg/actuation HFA aerosol inhaler 2 puff inhalation Q4-6H PRN (Reason: shortness of breath or wheezing) Qty: 6.7 0RF sumatriptan succinate 50 mg tablet See Rx Instructions .ROUTE .COMPLEX Qty: 20 0RF Rx Instructions: take 1 tab at onset of headache; if no relief may repeat 1 tab after at least 2 hrs; max = 4 tabs/24 hr albuterol sulfate 90 mcg/actuation aerosol powdr breath activated 2 inh inhalation Q4-6H PRN (Reason: shortness of breath or wheezing) Qty: 1 0RF benzonatate 100 mg capsule 100 mg PO BID PRN (Reason: cough) Qty: 20 0RF naproxen [Naprosyn] 500 mg tablet 500 mg PO BID PRN (Reason: pain) Qty: 10 0RF lorazepam 0.5 mg tablet 0.5 mg PO BEDTIME PRN (Reason: Anxiety) omeprazole 20 mg capsule,delayed release(DR/EC) 20 mg PO DAILY valacyclovir 500 mg tablet 500 mg PO DAILY baclofen 10 mg tablet 10 mg PO TID hydroxyzine HCl 25 mg tablet 25 mg PO TID PRN sumatriptan succinate 50 mg tablet See Rx Instructions PO .COMPLEX 30 Days Qty: 10 5RF Rx Instructions: take 1 tab at onset of headache; if no relief may repeat 1 tab after at least 2 hrs; PO ondansetron 4 mg tablet,disintegrating 4 mg PO DAILY PRN (Reason: nausea and vomiting) 30 Days Qty: 10 5RF diclofenac sodium 1 % gel topical Referrals: [facility] [Provider Group] Adriana Palencia MD [Primary Care Provider, Internal Medicine] Interventions: ED Discharge Assessment Last Done: 02/14/25 17:38 Discharge Date/Time: 02/14/25 17:40 Print Language: Tamazight
[2025-02-14 15:58] VITALS: PULSE 68; RESP 18
--- OUTSIDE RECORDS SUMMARY | 2025-02-14 15:58 | XMS_ITS | Encounter Summary ---
Author Organization [employer] Address [address] [place] [address] [address] [place] [address] Care Team Providers Care Channel Development Manager Name Role Phone Adriana Palencia MD Primary Care Provide r Reason for Visit * Reason Comments Med Refill Encounter Details Date Type Department Care Team ([facility] st Contact Info) Description 12/02/2022 Refill [facility] MEDICINE [address] [place] [address] Bree Ag MD [address] [place] [address] Generalized anxiety disorder Social History Tobacco Use [...] documented as of this encounter Care Teams Channel Development Manager Relationship Specialty Start Date End Date Adriana Palencia MD [address] [place] [address] PCP - General Family Medicine 06/01/18 documented as of this encounter
--- OUTSIDE RECORDS SUMMARY | 2025-02-14 15:58 | XMS_ITS | Encounter Summary ---
Author Organization [employer] Address [address] [place] [address] [address] [place] [address] Care Team Providers Care Waste Collection Driver Name Role Phone Adriana Palencia MD Primary Care Provide r Encounter Details Date Type Department Care Team (Late st Contact Info) Description 03/17/2022 Abstract [facility] MEDICINE [address] [place] [address] ProviderGurvinder MD Social History Tobacco Use Types [...] on filedocumented in this encounter Care Teams Waste Collection Driver Relationship Specialty Start Date End Date Adriana Palencia MD [address] [place] [address] PCP - General Family Medicine 06/01/18 documented as of this encounter
--- OUTSIDE RECORDS SUMMARY | 2025-02-14 15:58 | XMS_ITS | Encounter Summary ---
Author Organization [employer] Address [address] [place] [address] 7 [place] [address] Care Team Providers Care Poultry Field Service Technician Name Role Phone Adriana Palencia MD Primary Care Provide r Reason for Visit * Reason Comments Med Refill Encounter Details Date Type Department Care Team ([facility] st Contact Info) Description 10/31/2022 Refill [facility] MEDICINE [address] [place] [address] Adriana Palencia MD [address] [place] [address] Social History Tobacco Use Types Packs/Day Years [...] documented as of this encounter Care Teams Poultry Field Service Technician Relationship Specialty Start Date End Date Adriana Palencia MD [address] [place] [address] PCP - General Family Medicine 06/01/18 documented as of this encounter
--- OUTSIDE RECORDS SUMMARY | 2025-02-14 15:58 | XMS_ITS | Encounter Summary ---
Author Organization [employer] Address [address] [place] [address] [address] [place] [address] Care Team Providers Care Biology Manager Name Role Phone Adriana Palencia MD Primary Care Provide r Encounter Details Date Type Department Care Team (Late st Contact Info) Description 03/17/2022 Abstract [facility] MEDICINE [address] [place] [address] ProviderGurvinder MD Social History Tobacco Use Types [...] on filedocumented in this encounter Care Teams Biology Manager Relationship Specialty Start Date End Date Adriana Palencia MD [address] [place] [address] PCP - General Family Medicine 06/01/18 documented as of this encounter
--- OUTSIDE RECORDS SUMMARY | 2025-02-14 15:58 | XMS_ITS | Encounter Summary ---
Author Organization [employer] Address [address] [place] [address] [address]t [place] [address] Care Team Providers Care Cheese Tester Name Role Phone Adriana Palencia MD Primary Care Provide r Reason for Visit * Reason Comments Med Refill Encounter Details Date Type Department Care Team (Late st Contact Info) Description 11/24/2022 Refill [facility] MEDICINE [address] [place] [address] Lilia Mcgregor FNP Migraine without aura and [...] documented as of this encounter Care Teams Cheese Tester Relationship Specialty Start Date End Date Adriana Palencia MD [address] [place] [address] PCP - General Family Medicine 06/01/18 documented as of this encounter
--- OUTSIDE RECORDS SUMMARY | 2025-02-14 15:58 | XMS_ITS | Encounter Summary ---
Author Organization [employer] Address [address] [facility] 7 [place] [address] Care Team Providers Care Sodium Methylate Operator Name Role Phone Adriana Palencia MD Primary Care Provide r Encounter Details Date Type Department Care Team ([facility] st Contact Info) Description 05/17/2022 Telephone [facility] MEDICINE [address] [place] [address] Rosemary Espana RN [address] [place] [address] Social History Tobacco Use Types Packs/Day Years [...] encounter Miscellaneous Notes * Telephone Encounter - Rosemayr Espana RN - 05/17/2022 4:45 PM EST T triaged today, seen ER at [facility] on 05/14 for anxiety issues, chest pain, and ear buzzing.. please obtain ER records. documented in this encounter Plan of Treatment Not on file documented as of this encounter Visit Diagnoses Not on filedocumented in this encounter Care Teams Sodium Methylate Operator Relationship Specialty Start Date End Date Adriana Palencia MD [address] [place] [address] PCP - General Family Medicine 06/01/18 documented as of this encounter
--- OUTSIDE RECORDS SUMMARY | 2025-02-14 15:58 | XMS_ITS | Encounter Summary ---
Author Organization [employer] Address [address] [place] [address] 7 [place] [address] Care Team Providers Care Pl Sql Programmer Name Role Phone Adriana Palencia MD Primary Care Provide r Reason for Visit * Reason Comments Med Refill Encounter Details Date Type Department Care Team ([facility] st Contact Info) Description 09/25/2022 Refill [facility] MEDICINE [address] [place] [address] Adriana Palencia MD [address] [place] [address] Fibromyalgia Social History Tobacco Use Types Packs/Day [...] documented as of this encounter Care Teams Pl Sql Programmer Relationship Specialty Start Date End Date Adriana Palencia MD [address] [place] [address] PCP - General Family Medicine 06/01/18 documented as of this encounter
--- OUTSIDE RECORDS SUMMARY | 2025-02-14 15:58 | XMS_ITS | Encounter Summary ---
Author Organization [employer] Address [address] [place] [address] [address] [place] [address] Care Team Providers Care Hand I Thermal Cutter Name Role Phone Adriana Palencia MD Primary Care Provide r Reason for Visit * Reason Comments Med Refill Encounter Details Date Type Department Care Team (Late st Contact Info) Description 11/02/2022 Refill [facility] [place] [facility] MEDICINE [address] [place] [address] Lilia Mcgregor FNP Social History Tobacco Use [...] documented as of this encounter Care Teams Hand I Thermal Cutter Relationship Specialty Start Date End Date Adriana Palencia MD [address] [place] [address] PCP - General Family Medicine 06/01/18 documented as of this encounter
--- OUTSIDE RECORDS SUMMARY | 2025-02-14 15:58 | XMS_ITS | Clinical Summary ---
Author Organization [employer] Address [address] [place] [address] 7[address] [place] [address] Care Team Providers Care Anthropologist Physical Name Role Phone Adrinaa Palencia MD Primary Care Provide r Allergies [...] hours. Active ergocalciferol (Vitamin D-2) 1.25 MG (46268 UT) capsule take 1 capsule by oral [...] every 6 (six) hours. Active Lactobacillus-Inu kristen ([facility] Smarter Agent [facility]) capsule take 1 capsule [...] per day. 10 tablet 025 2025 Active levothyroxine (Synthroid) 125 MCG tabletIndications :Acquired [...] (one) time per week. 2 mL Active albuterol 108 (90 Base) MCG/ACT inhalerIndication [...] without esophagitis TAKE 1 CAPSULE BY MOUTH BEFORE A MEAL 90 capsule 1 025 Active omeprazole (PriLOSEC) [address] capsuleIndication s:Gastroesophagea l reflux disease without esophagitis TOME 1 CAPSULA POR VIA ORAL TODOS LOS DIAZ BEFORE A MEAL 90 capsule 1 025 2024 Discontinued Active Problems Problem [...] life style modifications, diet and referral to utilization specialist. Recommended to decrease soda and sugary [...] Encounters Date Type Department Care Team Description 02/05/2025 Refill [facility] [address] [place] [phone] Adriana Palencia MD Gastroesophageal reflux disease without esophagitis 01/23/2025 Orders Only GENERIC EXTERNAL DATA DEPARTMENT Provider, Generic External Data 01/13/2025 Orders Only GENERIC EXTERNAL DATA DEPARTMENT Provider, Generic External Data 12/25/2024 Orders Only GENERIC EXTERNAL DATA DEPARTMENT Provider, Generic External Data 12/09/2024 3:30 PM EDT Office Visit [facility] [address] [place] [address] [phone] Manju Jennings NP Gastroesophageal reflux disease, unspecified whether esophagitis present (Primary Dx) 12/09/2024 Travel 12/07/2024 Refill [facility] [address] [place] [address] [phone] Adriana Palencia MD 12/06/2024 Telephone [facility] [address] [place] [address] [phone] Bree Ag MD No Show 12/05/2024 Telephone [facility] [address] [place] [address] [phone] Adriana Palencia MD Chart Prep 12/03/2024 Travel 12/02/2024 Telephone [facility] [address] [place] [address] [phone] Adriana Palencia MD Nurse Triage 11/25/2024 11:00 AM EDT Office Visit [facility] [address] [place] [address] [phone] Hrasha Rees MD Gastroesophageal reflux disease, unspecified whether esophagitis present (Primary Dx) 11/15/2024 Telephone [facility] [address] [place] [address] [phone] Adriana Palencia MD Nurse Triage 11/14/2024 Refill [facility] [address] [place] [address] [phone] Adriana Palencia MD Muscle spasm; Pain from Last 3 Months Immunizations Immunization Administration [...] Cervical Cancer Screening 07/02/2026 HPV/Cotest 07/02/2026 07/02/2021, 03/11/2021, 07/02/2021 Pap Smear 07/02/2026 07/02/2021 Lipid Panel [...] Procedure Name Priority Date/Time Associated Diagnosis Comments TSH Routine 01/23/2025 3:24 PM EDT T4, FREE Routine 01/23/2025 3:24 PM EDT COVID-19 ID NOW (MAC) Routine 01/13/2025 11:25 PM EDT INFLUENZA A B2 ID NOW (MAC) Routine [...] AUTO DIFFERENTIAL Routine 12/25/2024 3:17 PM EDT BI MAMMOGRAM SCREENING TOMOSYNTHESIS BILATERAL [...] Relevant to Health Maintenance Results * (ABNORMAL) TSH (01/23/2025 3:24 PM EDT) Thyroid Stimulating Hormone 8.57(H) 0.32 - 4.0 uIU/mL [facility] Comment:Note: A sustained TS H level above 2.5 uIU/mL may warrant further investigation. TSH 3rd Generation ([facility]) 01/23/2025 3:24 PM EDT 01/23/2025 3:24 PM EDT us Generic External Data Provider LAB BLOOD ORDERAB LES Final Result [facility] [address] [place] [address] [phone] * T4, Free (01/23/2025 3:24 PM EDT) [facility] Free T4 (Free Thyroxine) 0.99 0.71 - 1.85 ng/dL [facility] 01/23/2025 3:24 PM EDT 01/23/2025 3:24 PM EDT Generic External Data Provider LAB BLOOD ORDERAB LES Final Result Performing Organization Address [facility]/ZIP Co de Phone Number [facility] [address] [place] [address] [phone] * Influenza A B2 ID NOW (Mac) (01/13/2025 11:25 PM EDT) [facility] IDNOW SERIAL# [id number] [facility] Influenza A Negative Negative [facility] Influenza B2 Negative Negative [facility] Influenza A B2 Note See Note [facility] Comment:The [facility] ID NOW In fluenza [...] GENERAL ORDERABLES Final Result Performing Organization Address [facility]/ZIP Co de Phone Number [facility] [address] [place] [address] [phone] * Strep A Nucleic Acid (01/13/2025 11:25 PM EDT) [facility] SERIAL# [id number] [facility] Strep A Nucleic Acid Negative Negative [facility] Comment:All test results mus t be [...] LAB MICROBIOLOGY - GENERAL ORDERABLES Final Result [facility] [address] [place] [phone] [phone] * (ABNORMAL) COVID-19 ID NOW (MAC) (01/13/2025 11:25 PM EDT) IDKIM[facility]LEY SERIAL# [id number] [facility] COVID-19 TEST Positive (A) Negative [facility] COVID-19 NOTE See Note [facility] Comment: Results are for the identification of SARS-CoV2 RNA. TheSARS-CoV2 RNA is generally detectable in respiratory samplesduring the acute phase of infection. Positive results areindicative of the presence of SARS-CoV-2 RNA; clinicalcorrelation with patient history and other diagnosticinformation is necessary to determine patient infectionstatus. Positive results do not rule out bacterial infectionor co- infection with other viruses.Testing facilities within the [facility] and [facility] are required to report all positive results [...] use by authorized laboratories.Testing performed on the [facility] ID NOW utilizing [facility]. 01/13/2025 11:2 5 PM EDT 01/13/2025 11:39 PM EDT us Generic External Data Provider LAB MOLECULAR KENAN GNOSTICS ORDERABLES Final Result Performing Organization Address City/State/[facility] Co de Phone Number [facility] [address] [place] [phone] * CT Head w/o Contrast (12/25/2024 7:05 PM EDT) Anatomical Region Laterality Modality Head, Neck Computed Tomogra phy 12/25/2024 7:05 PM EDT Narrative 12/25/2024 7:06 PM EDT [place] [address] CT Scan Report Signed Patient: Sudha Dean MR#: [id number] : 1970 Acct:[id number] Age/Sex: 54 / F ADM Date: 12/25/24 Loc: HO.ED Attending Dr: Ordering Physician: Gaudencio Eldridge Date of Service: 12/25/24 Procedure(s): CT head/brain wo IV con Accession Number(s): [id number] cc: Adriana Palencia MD; Gaudencio Eldridge Report Number: [id number]: Total DLP = 0.00 mGy-cm Reason for [...] signed by Derek Philip MD in OV> 12/26/24155 DD/ 04 TD/TT: 12/25/241904 Manager Laboratory: Procedure Note Donotjamilainterpreter, Image - 12/26/[address] [place] [address] [address] Scan Report Signed Patient: Sudha Dean BANNER#: [id number] : 1970Acct:[id number] Age/Sex: 54 / FADM Date: 12/25/24 Loc: HO.ED Attending Dr: Ordering Physician: Gaudencio Eldridge Date of Service: 12/25/24 Procedure(s): CT head/brain wo IV con Accession Number(s): [id number] cc: Adriana Palencia MD; Gaudencio Eldridge Report Number: [id number]: Total DLP = 0.00 mGy-cm Reason for [...] signed by Derek Philip MD in OV> 12/26/24155 DD/ 04 TD/TT: 12/25/241904 Manager Laboratory: [facility] External Provider IMG CT PROCEDURES Edited Result - Final * (ABNORMAL) CBC auto differential (12/25/2024 3:17 PM EDT) White Blood Count 6.4 4.8 - 10.8 X10*3/uL [facility] Red Blood Count 4.11(L) 4.20 - 5.50 X10*6/uL [facility] Hemoglobin 12.2 12.0 - 16.0 g/dl [facility] Hematocrit 36.2(L) 37.0 - 47.0 % [facility] Mean Corpuscular Volume 88.1 80.0 - 98.0 fL [facility] Mean Corpuscular Hemoglobin 29.7 27.0 - 33.0 pg [facility] Mean Corpuscular HGB Conc 33.7 31.0 - 35.0 g/dl [facility] Red Cell Distribution Width 14.6 11.0 - 16.0 % [facility] Platelet Count 179 160 - 400 X10*3/uL [facility] Mean Platelet Volume 10.7 9.4 - 12.3 fL [facility] Neutrophils Percent Auto 65.7 45 - 73 % [facility] Imm Gran Pct Auto 0.3 0.0 - 0.4 % [facility] Lymphocytes Percent Auto 23.0 20 - 40 % [facility] Monocytes Percent Auto 6.8 2 - 11 % [facility] Eosinophils Percent Auto 3.6 0 - 4 % [facility] Basophils Percent Auto 0.6 0 - 2 % [facility] NRBC Pct Auto 0.0 0.0 - 0.2 /100WBC [facility] Neutrophils Absolute Auto 4.2 2.0 - 8.3 x10*3/uL [facility] Imm Gran Abs Auto 0.02 0.00 - 0.03 X10*3/uL [facility] Lymphocytes Absolute Auto 1.5 1.2 - 4.9 X10*3/uL [facility] Monocytes Absolute Auto 0.4 0.1 - 1.2 X10*3/uL [facility] Eosinophils Absolute Auto 0.2 0.0 - 0.4 X10*3/uL [facility] Basophils Absolute Auto 0.0 0.0 - 0.2 X10*3/uL [facility] NRBC Abs Auto 0.000 0.0 - 0.012 X10*3/uL [facility] 12/25/2024 3:17 PM EDT 12/25/2024 3:23 PM EDT Generic External Data Provider LAB BLOOD ORDERAB LES Final Result Performing Organization Address [facility] Co de Phone Number [facility] [address] [place] [address] [phone] * Sed Rate by Modified Westergren (12/25/2024 3:17 PM EDT) Erythrocyte Sedimentation Rate 16 0 - 20 MM/HR [facility] Comment:Patients with polycy themia and many hemoglobin abnormalitiesmay have depressed sed rates whereas patients with anemiamay have elevated sed rates. 12/25/2024 3:17 PM EDT 12/25/2024 3:23 PM EDT Generic External Data Provider LAB BLOOD ORDERAB LES Final Result Performing Organization Address [facility] Co de Phone Number [facility] [address] [place] [address] [phone] * C-reactive Protein (12/25/2024 3:17 PM EDT) C Reactive Protein <0.04 < or = 0.50 mg/dL [facility] 12/25/2024 3:17 PM EDT 12/25/2024 3:23 PM EDT Generic External Data Provider LAB BLOOD ORDERAB LES Final Result Performing Organization Address [facility] Co de Phone Number [facility] [address] [place] [address] [phone] * Magnesium (12/25/2024 3:17 PM EDT) Magnesium 2.1 1.6 - 2.6 mg/dL [facility] 12/25/2024 3:17 PM EDT 12/25/2024 3:23 PM EDT us Generic External Data Provider LAB BLOOD ORDERAB LES Final Result [facility] [address] [place] [phone] * (ABNORMAL) Comprehensive Metabolic Panel (12/25/2024 3:17 PM EDT) Sodium 142 135 - 145 mmol/L [facility] Potassium 4.4 3.3 - 5.1 mmol/L [facility] Chloride 109(H) 96 - 108 mmol/L [facility] Carbon Dioxide 25 22 - 29 mmol/L [facility] Anion Gap 12 12 - 20 [facility] Urea Nitrogen (BUN) 12 9 - 16 mg/dL [facility] Creatinine, Serum 0.86 0.5 - 1.4 mg/dL [facility] Creatinine Clr Calc Pharmacy 73.0 [facility] Comment:Provided height and weight: 165.1 cm,69.2 kg.eGFR (calculated from the MDRD study equation) and eCrCl(calculated from the Cockcroft-Gault equation) are based ondifferent parameters and may not yield comparable results.If eCrCl result is absurd, please check patient'sheight/weight. Estimated Glomerular Filt Rate >60 [facility] Comment:Chronic Kidney Disea se: Estimated GFR < 60 mL/min/1.92w4Leiyya Kidney Disease: Estimated GFR < 15 mL/min/1.73m2 Glucose 141(H) 60 - 115 mg/dL [facility] Calcium 9.2 8.4 - 10.2 mg/dL [facility] Bilirubin, Total 0.3 0.0 - 1.0 mg/dL [facility] Aspartate Amino Transferase 24 5 - 31 U/L [facility] Alanine Aminotransferase 8 0 - 31 U/L [facility] Total Protein 6.9 6.5 - 8.0 g/dL [facility] Albumin Level 4.2 3.5 - 5.0 g/dL [facility] Alkaline Phosphatase 131(H) 39 - 117 U/L [facility] 12/25/2024 3:17 PM EDT 12/25/2024 3:23 PM EDT us Generic External Data Provider LAB BLOOD ORDERAB LES Final Result Performing Organization Address City/State/[facility] Co de Phone Number [facility] [address] [place] [phone] * BI Mammogram Screening Tomosynthesis Bilateral (02/22/2024 8:40 AM EST) Anatomical Region Laterality Modality Breast Bilateral Mammography 02/22/2024 8:40 AM EST Narrative 03/01/2024 4:10 PM EST [address] [place] [address] Mammography Report Signed Patient: Sudha Dean MR#: [id number] : 1970 Acct:[id number] Age/Sex: 54 / F ADM Date: 02/22/24 Loc: HO.MAMMO Attending Dr: Adriana Sanches MD Ordering Physician: Adriana Palencia MD Results: 1Negative Date of Service: 02/22/24 Follow Up: 1 Year From Orig ina Mammogram Procedure(s): MM tomosynthesis screening BI Accession Number(s): [id number] cc: Adriana Palencia MD EXAMINATION: MM SCREENING [...] 03/01/24 1607 DD/ 0840 TD/TT: 02/22/24 0903 Manager Laboratory: Procedure Note Donotuseinterpreter, Image - [facility]/01/20[facility] [address] [place] [address] Mammography Report Signed Patient: Sudha Dean NMR#: [id number] : 1970Acct:[id number] Age/Sex: 54 / FADM Date: 02/22/24 Loc: HOJohnnaMAMMO Attending Dr: Adriana Sanches MD Ordering Physician: Adriana Palencia MDResults: 1Negative Date of Service: 02/22/24Follow Up: 1 Year From Orig inal Mammogram Procedure(s): MM tomosynthesis screening BI Accession Number(s): [id number] cc: Adriana Palencia MD EXAMINATION: MM SCREENING [...] 03/01/24 1607 DD/ 0840 TD/TT: 02/22/24 0903 Manager Laboratory: us Adriana Sanches MD IMG BI PROCEDURES Fin al Result * (ABNORMAL) Lipid Panel with Reflex to Direct LDL (12/13/2023 12:18 PM EDT) Triglycerides 52 <150 mg/dL [facility] Comment:Desirable Triglyceri de: less than 150 mg/dLBorderline High Triglyceride 150-199 mg/dLHigh Triglyceride: 200-499 mg/dLVery High Triglyceride: greater than or equal to 5OO mg/dL Cholesterol 187 <200 mg/dL [facility] Comment:Desirable Cholestero l: less than 200 mg/dLBorderline High Cholesterol: 200-239 mg/dLHigh Cholesterol: greater than 239 mg/dL LDL Cholesterol Calculated 109(H) <100 mg/dL [facility] Comment:Desirable LDL: less than 100 mg/dLNear Optimal/Above Optimal LDL: 110- 129 mg/dLBorderline High LDL: 130-159 mg/dLHigh LDL: 160-189 mg/dLVery High LDL: greater than or equal to 190 mg/dL HDL Cholesterol 68 >40 mg/dL [facility] Comment:Desirable HDL: great er than 40 mg/dL Note: This HDL assay may give artificially low results in patients with liver disease. Blood 12/13/2023 12:1 8 PM EDT 12/13/2023 1:25 PM EDT us Adriana Sanches MD LAB BLOOD ORDERABLES Final Result [facility] [address] [place] [phone] * Hepatitis C Viral RNA, Quantitative, Real-Time PCR (12/13/2023 12:18 PM EDT) Hepatitis C Viral Load <15 NOT DETECTED NOT DETECTED IU/mL [facility] HCV Log PCR <1.18 NOT DETECTED NOT DETECTED Log IU/mL [facility] Comment:For additional infor gera, please refer [email or web address](This link is being provided for informational/educational purposes only.)THIS TEST WAS PERFORMED AT:[facility] [place] [phone] KENNEDY MD Blood 12/13/2023 12:1 8 PM EDT 12/13/2023 1:25 PM EDT us Adriana Sanches MD LAB BLOOD ORDERABLES Final Result [facility] [address] [place] [phone] * HIV-1/2 Antigen and Antibodies, Fourth Generation, with Reflexes (12/13/2023 12:18 PM EDT) Pathologist [facility] HIV AB/AG Nonreactive Nonreactive [facility] Comment:HIV-1 p24 Ag and/or HIV-1/HIV-2 Ab not detected.A test result that is nonreactive does not exclude thepossibility of exposure to or infection with HIV-1 and/orHIV-2. Nonreactive results in this assay for individualswith prior exposure to HIV-1 and/or HIV-2 may be due toantigen and antibody levels that are below the limit ofdetection of this assay.The [email or web address] HIV Ag/Ab Combo assay result andsupplemental assay results should be interpreted inconjunction with the patient's clinical presentation,history and other laboratory results. If the results areinconsistent with clinical evidence, additional testing issuggested to confirm the result. Blood Venous blood specimen / Unknown 12/13/2023 12:18 PM EDT 12/13/2023 1:15 PM EDT us Adriana Sanches MD LAB BLOOD ORDERABLES Final Result [facility] [address] [place] [phone] * Hm Pap Smear (07/02/2021) Pap Negative for intraephithelial lesion or malignancy Negative for intraephithelial lesion or malignancy, Other HPV Undetected us Historical Provider HEALTH MAINTENANCE Final Result from Last 3 Months or Most Recently Relevant to Health Maintenance Insurance [facility] STANDARD FORMERLY [facility] ONE CARE < 65 Care Teams Anthropologist Physical Relationship Specialty Start Date End Date Adriana Palencia MD [address] [place] [phone] PCP - General Family Medicine 06/01/18
--- OUTSIDE RECORDS SUMMARY | 2025-02-14 15:58 | XMS_ITS | Encounter Summary ---
Author Organization [employer] Address [address] [place] [address] Care Team Providers Care Rescue Worker Name Role Phone Adriana Palencia MD Primary Care Provide r Reason for Visit * Reason Comments Med Refill Encounter Details Date Type Department Care Team ([facility] st Contact Info) Description 03/10/2024 Refill [facility] [address] [place] [address] Adriana Palencia MD [address] [place] [address] Vitamin B12 deficiency Social History Tobacco Use [...] documented as of this encounter Care Teams Rescue Worker Relationship Specialty Start Date End Date Adriana Palencia MD [address] [place] [address] PCP - General Family Medicine 06/01/18 documented as of this encounter
--- OUTSIDE RECORDS SUMMARY | 2025-02-14 15:59 | XMS_ITS | Encounter Summary ---
Author Organization [employer] Address [address] [facility] 7 [place] [address] Care Team Providers Care Boat Canvas Maker Installer Name Role Phone Adriana Palencia MD Primary Care Provide r Reason for Visit * Reason Comments Med Refill Encounter Details Date Type Department Care Team ([facility] st Contact Info) Description 07/19/2024 Refill [facility] [address] [place] [address] Adriana Palencia MD [address] [place] [address] Class 1 obesity due to excess calories [...] documented as of this encounter Care Teams Boat Canvas Maker Installer Relationship Specialty Start Date End Date Adriana Palencia MD [address] [place] [address] PCP - General Family Medicine 06/01/18 documented as of this encounter
--- OUTSIDE RECORDS SUMMARY | 2025-02-14 15:59 | XMS_ITS | Encounter Summary ---
Author Organization [employer] Address [address] [facility] 7t [place] [address] Care Team Providers Care Communication Technician Name Role Phone Adriana Palencia MD Primary Care Provide r Reason for Visit * Reason Comments Med Refill Encounter Details Date Type Department Care Team ([facility] st Contact Info) Description 09/07/2024 Refill [facility] [address] [place] [address] Adriana Palencia MD [address] [place] [address] Polyarthralgia; Class 1 obesity due to excess [...] documented as of this encounter Care Teams Communication Technician Relationship Specialty Start Date End Date Adriana Palencia MD [address] [place] [address] PCP - General Family Medicine 06/01/18 documented as of this encounter
--- OUTSIDE RECORDS SUMMARY | 2025-02-14 15:59 | XMS_ITS | Encounter Summary ---
Author Organization [employer] Address [address] [facility] [address] [place] [address] Care Team Providers Care Agriculture Instructor Name Role Phone Adriana Palencia MD Primary Care Provide r Reason for Visit * Reason Onset Date Comments Med Refill 05/21/2024 Encounter Details Date Type Department Care Team ([facility] st Contact Info) Description 05/21/2024 Telephone [facility] [address] [place] [address] Adriana Palencia MD [address] [place] [address] Med Refill Social History Tobacco Use Types [...] MG/0.5ML solution auto-injector To be sent to: [facility]/pharmacy #[id number] [place], [place] - [address] [place] [address] documented in this encounter Plan of Treatment Not on file documented as of this encounter Visit Diagnoses Not on filedocumented in this encounter Additional Health Concerns Assessment Noted Time PHQ-9 Depression Total Score: 15 024 9:44 AM EST documented as of this encounter Care Teams Agriculture Instructor Relationship Specialty Start Date End Date Adriana Palencia MD [address] [place] [address] PCP - General Family Medicine 06/01/18 documented as of this encounter
--- OUTSIDE RECORDS SUMMARY | 2025-02-14 15:59 | XMS_ITS | Encounter Summary ---
Author Organization [employer] Address [address] [facility] 7[address] [place] [address] Care Team Providers Care Keg Washer Name Role Phone Adriana Palencia MD Primary Care Provide r Encounter Details Date Type Department Care Team ([facility] st Contact Info) Description 01/18/2023 Abstract [facility] [address] [place] [address] Eliane Raman Social History Tobacco Use Types [...] documented as of this encounter Care Teams Keg Washer Relationship Specialty Start Date End Date Adriana Palencia MD [address] [place] [address] PCP - General Family Medicine 06/01/18 documented as of this encounter
--- OUTSIDE RECORDS SUMMARY | 2025-02-14 15:59 | XMS_ITS | Encounter Summary ---
Author Organization [employer] Address [address] [facility] 7t [place] [address] Care Team Providers Care Junior Manufacturing Engineer Name Role Phone Adriana Palencia MD Primary Care Provide r Reason for Visit * Reason Comments Med Refill Encounter Details Date Type Department Care Team ([facility] st Contact Info) Description 04/14/2023 Refill [facility] MED[facility]INE [address] [place] [address] Heather Wei MD [address] [place] [address] Gastroesophageal reflux disease without esophagitis Social History [...] documented as of this encounter Care Teams Junior Manufacturing Engineer Relationship Specialty Start Date End Date Adriana Palencia MD [address] [place] [id number] PCP - General Family Medicine 06/01/18 documented as of this encounter
--- OUTSIDE RECORDS SUMMARY | 2025-02-14 15:59 | XMS_ITS | Encounter Summary ---
Author Organization [employer] Address [address] [facility] 7 [place] [address] Care Team Providers Care Milling Machine Tender Name Role Phone Adriana Palencia MD Primary Care Provide r Reason for Visit * Reason Comments Med Refill Encounter Details Date Type Department Care Team ([facility] st Contact Info) Description 09/12/2024 Refill [facility] 230 [place] [address] Adriana Palencia MD 230 [place] [address] Acquired hypothyroidism Social History Tobacco Use Types [...] documented as of this encounter Care Teams Milling Machine Tender Relationship Specialty Start Date End Date Adriana Palencia MD [address] [place] [address] PCP - General Family Medicine 06/01/18 documented as of this encounter
--- OUTSIDE RECORDS SUMMARY | 2025-02-14 15:59 | XMS_ITS | Encounter Summary ---
Author Organization [employer] Address [address] [facility] 7t [place] [address] Care Team Providers Care Draw Fire Operator Name Role Phone Adriana Palencia MD Primary Care Provide r Reason for Visit * Reason Comments Med Refill Encounter Details Date Type Department Care Team ([facility] st Contact Info) Description 08/03/2024 Refill [facility] MED[facility]INE [address] [place] [address] Adriana Palencia MD 230 [place] [address] Class 1 obesity due to excess calories [...] documented as of this encounter Care Teams Draw Fire Operator Relationship Specialty Start Date End Date Adriana Palencia MD [address] [place] [address] PCP - General Family Medicine 06/01/18 documented as of this encounter
--- OUTSIDE RECORDS SUMMARY | 2025-02-14 15:59 | XMS_ITS | Encounter Summary ---
Author Organization [employer] Address [address] [facility] 7 [place] [address] Care Team Providers Care Artificial Stone Setter Name Role Phone Adriana Palencia MD Primary Care Provide r Reason for Visit * Reason Comments Med Refill Encounter Details Date Type Department Care Team ([facility] st Contact Info) Description 08/02/2024 Refill [facility] MEDICINE [address] [place] [address] Adriana Palencia MD [address] [place] [address] Class 1 obesity due to excess calories [...] documented as of this encounter Care Teams Artificial Stone Setter Relationship Specialty Start Date End Date Adriana Palencia MD [address] [place] [address] PCP - General Family Medicine 06/01/18 documented as of this encounter
--- OUTSIDE RECORDS SUMMARY | 2025-02-14 15:59 | XMS_ITS | Encounter Summary ---
Author Organization [employer] Address [address] [facility] 7t [place] [address] Care Team Providers Care Air Conditioning Equipment Mechanic Name Role Phone Adriana Palencia MD Primary Care Provide r Reason for Visit * Reason Comments Med Change Request Encounter Details Date Type Department Care Team ([facility] st Contact Info) Description 09/10/2024 Refill [facility] MED[facility]INE [address] [place] [address] Adriana Palencia MD 230 [place] [address] Class 1 obesity due to excess calories [...] documented as of this encounter Care Teams Air Conditioning Equipment Mechanic Relationship Specialty Start Date End Date Adriana Palencia MD [address] [place] [address] PCP - General Family Medicine 06/01/18 documented as of this encounter
--- OUTSIDE RECORDS SUMMARY | 2025-02-14 15:59 | XMS_ITS | Encounter Summary ---
Author Organization [employer] Address [address] [facility] 7 [place] [address] Care Team Providers Care Hoop Maker Name Role Phone Adriana Palencia MD Primary Care Provide r Reason for Visit * Reason Comments Med Refill Encounter Details Date Type Department Care Team ([facility] st Contact Info) Description 07/29/[address] [facility] MEDICINE [address] [place] [address] Adriana Palencia MD [address] [place] [address] Class 1 obesity due to excess calories [...] documented as of this encounter Care Teams Hoop Maker Relationship Specialty Start Date End Date Adriana Palencia MD [address] [place] [address] PCP - General Family Medicine 06/01/18 documented as of this encounter
--- OUTSIDE RECORDS SUMMARY | 2025-02-14 15:59 | XMS_ITS | Encounter Summary ---
Author Organization [employer] Address [address] [facility] 7 [place] [address] Care Team Providers Care Head Wrestling Coach Name Role Phone Adriana Palencia MD Primary Care Provide r Reason for Visit * Reason Comments Med Refill Encounter Details Date Type Department Care Team ([facility] st Contact Info) Description 08/31/2023 Refill [facility] MEDICINE [address] [place] [address] Adriana Palencia MD [address] [place] [address] Gastroesophageal reflux disease without esophagitis Social History [...] documented as of this encounter Care Teams Head Wrestling Coach Relationship Specialty Start Date End Date Adriana Palencia MD [address] [place] [address] PCP - General Family Medicine 06/01/18 documented as of this encounter
--- OUTSIDE RECORDS SUMMARY | 2025-02-14 15:59 | XMS_ITS | Data Portability ---
Author Organization [employer] [facility] Address [address] [place] [address] Care Team Providers Care Call Center Support Representative Name Role Phone HIM CCA OTHER Unavailable OTHER Assessment Encounter Date Assessment Date Assessment LastModified by Organization Details LastModified Time 02/06/2024 02/06/2024 I provided real -time medical direction via phone for this encounter and was available for additional phone-based assistance as needed. I have reviewed and agree with the Assessment and Plan as documented by the Astrobiologist. Patient given the opportunity to ask questions. Our service contacted for an assessment of: blood pressure check As per above, patient with h/o PEDRO PABLO and anxiety d/o. Wanted to checked and have her BP checked. Denies CP, SOB. Per resawyer on the scene, vitals are stable. Please see resawyer note for details guarding conversation and outcome [...] Not available Not available Not available 02/06/2024 23705 RxNorm Melany Covarrubias MD [address] [facility],[address], [place], [address] , [facility] - [facility] 4 09:58:03 6689 diphenhyd ramine medicatio n Not available Not available Not available 02/06/2024 [id number] RxNorm Not Available [facility] - production 4 03:38:24 Medications Name Sig Start Date Stop Date Status Note LastModified by Organization Details LastModified Time blood pr monit omr [id number] USE TO CHECK BLOOD PRESSURE EVERY DAY [...] Diagnosis SNOMED-CT Code Diagnosis ICD10 Code Diagnosis IMO Codes Diagnosis Note [id number] Melany Covarrubias MD Main - [facility] [address] [place] [phone] 02/06/2024 09:19:38 02/06/2024 10:34:09 Generalized anxiety disorder 81274071 F41.1 Health Concerns Section Related Observation LastModified by Organization Detai ls LastModified Time None Recorded Concern Status LastModified by Organization Details LastModified Time None Recorded Advance Directives Directive None Recorded Payers Insurance Date Sequence Insurance Name Policy Number Policy Rosa Covered Member ID Rosa Member ID Guarantor Name 02/20/2024 1 [facility] - DOS ON OR AFTER 2022 - DUAL ELIGIBLE - FDC OPTIONS AND ONE CARE (MEDICARE REPLACEMENT/ADV ANTAGE - HMO) Sudha Kinney [id number] Sudha Kinney Notes Date Note Type Note [...] accommodate a visit this evening, call via Wheel Blocker [id number], RED flags discussed, she is agreeable to a visit tomorrow 02/05- Astrobiologist Organization Information for [facility] [employer] Legal Name: [facility]ly [facility] [employer] Address: [address] [place] [address], [place] [address], Dairy Consultant: Kem Verdugo MD [facility] No.: [id number] Astrobiologist POC Test Results from [facility] Test (09:36:50) Test: - Rapid influenza antigen (09:36:52) Flu: - Rapid strep test (09:36:53) Strep: - ..................... ..................... ..................... ..................... ..................... ..................... ............... Astrobiologist Note From [facility]: Pt reports hx [...] ............... Disposition: Fulfilled Melany Covarrubias MD [address] [facility], [place], [address], [facility] - [facility] 02/06/2024 10:17:46 OBGyn Episode No OBEpisode recorded.
--- OUTSIDE RECORDS SUMMARY | 2025-02-14 15:59 | XMS_ITS | Clinical Summary ---
Author Organization [facility] Address [address] [place] [address] Care Team Providers Care International Organizer Name Role Phone Unavailable Primary Care Provider [...]
--- OUTSIDE RECORDS SUMMARY | 2025-02-14 15:59 | XMS_ITS | Encounter Summary ---
Author Organization [employer] Address [address] [facility] 7t [place] [address] Care Team Providers Care Momd Teacher Name Role Phone Adriana Palencia MD Primary Care Provide r Reason for Visit * Reason Comments Med Change Request Encounter Details Date Type Department Care Team ([facility] st Contact Info) Description 08/06/2024 Refill [facility] MEDICINE [address] [place] [address] Adriana Palencia MD [address] [place] [address] Class 1 obesity due to excess calories [...] documented as of this encounter Care Teams Momd Teacher Relationship Specialty Start Date End Date Adriana Palencia MD [address] [place] [address] PCP - General Family Medicine 06/01/18 documented as of this encounter
--- OUTSIDE RECORDS SUMMARY | 2025-02-14 15:59 | XMS_ITS | Clinical Summary ---
Author Organization [facility] Address [address] [place] [address] Phone Care Team Providers Care Tire Assembler Name Role Phone Maribel Garcia XANDER Primary Care Provider [phone] Allergies No known active allergies Medications No [...] Last Done Comments Breast Cancer Screening 1970 Colorectal Cancer Screening: Colonoscopy 1970 Cervical Cancer Screening: Pap Smear 1991 Pneumococcal Vaccine: 50+ Years (2 of 2 - PCV) 03/19/2015 03/19/2014 RSV Immunization Adult Patients (1 - Risk 50-74 years 1-dose series) 01/03/2020 Cholesterol Screening (Lipid Panel) 03/30/2022 Hepatitis C Screening 03/30/2022 Medicare Annual [...] to complete this topic Insurance [facility] MEDICARE Member Subscriber Plan / Payer (Ef fective 2024-Present) Name:Sudha Dean Relation to Subscriber:Self Name:Sudha Dean Payer ID:[id number] Group ID:Not on file Type:Not on file Address: [place] [id number] Care Teams Tire Assembler Relationship Specialty Start Date End Date Maribel Garcia FNP PCP - General Internal Medicine 04/11/13
--- OUTSIDE RECORDS SUMMARY | 2025-02-14 15:59 | XMS_ITS | Encounter Summary ---
Author Organization [employer] Address [address] [place] [address] [address] [place] [address] Care Team Providers Care Assignment Desk Assistant Name Role Phone Adriana Palencia MD Primary Care Provide r Reason for Visit * Reason Comments Med Refill Encounter Details Date Type Department Care Team ([facility] st Contact Info) Description 01/10/2023 Refill [facility] MEDICINE [address] [place] [address] Adriana Palencia MD [address] [place] [address] Social History Tobacco Use Types Packs/Day Years [...] documented as of this encounter Care Teams Assignment Desk Assistant Relationship Specialty Start Date End Date Adriana Palencia MD [address] [place] [address] PCP - General Family Medicine 06/01/18 documented as of this encounter
--- OUTSIDE RECORDS SUMMARY | 2025-02-14 15:59 | XMS_ITS | Encounter Summary ---
Author Organization [employer] Address [address] [facility] [address] [place] [address] Care Team Providers Care Metal Drilling Machine Operator Name Role Phone Adriana Palencia MD Primary Care Provide r Encounter Details Date Type Department Care Team ([facility] st Contact Info) Description 03/14/[address] [facility] MEDICINE [address] [place] [address] Eliane Raman Social History Tobacco Use Types [...] documented as of this encounter Care Teams Metal Drilling Machine Operator Relationship Specialty Start Date End Date Adriana Palencia MD [address] [place] [address] PCP - General Family Medicine 06/01/18 documented as of this encounter
--- OUTSIDE RECORDS SUMMARY | 2025-02-14 15:59 | XMS_ITS | Encounter Summary ---
Author Organization [employer] Address [address] [facility] 7 [place] [address] Care Team Providers Care Alumni Coordinator Name Role Phone Adriana Palencia MD Primary Care Provide r Reason for Visit * Reason Onset Date Comments Letter Needed 04/18/2023 Encounter Details Date Type Department Care Team ([facility] st Contact Info) Description 04/18/2023 Telephone [facility] MEDICINE [address] [place] [address] Adriana Palencia MD [address] [place] [address] Letter Needed Social History Tobacco Use Types [...] causing herasthma attacks. Please contact pt @ [phone] Tajik Speaker documented in this encounter Plan of Treatment Not on file documented as of this encounter Visit Diagnoses Not on filedocumented in this encounter Additional Health Concerns Assessment Noted Time PHQ-9 Depression Total Score: 14 023 3:05 PM EDT documented as of this encounter Care Teams Alumni Coordinator Relationship Specialty Start Date End Date Adriana Palencia MD [address] [place] [address] PCP - General Family Medicine 06/01/18 documented as of this encounter
[2025-02-14 16:00] LABS: MANUAL DIFF FLAG NO
[2025-02-14 16:01] LABS: Hematocrit 38.4 % (37.0-47.0); Hemoglobin 12.6 g/dl (12.0-16.0); Imm Gran Abs Auto 0.02 X10*3/uL (0.00-0.03); Imm Gran Pct Auto 0.3 % (0.0-0.4); Lymphocytes Absolute Auto 2.0 X10*3/uL (1.2-4.9); Mean Corpuscular HGB Conc 32.8 g/dl (31.0-35.0); Mean Corpuscular Hemoglobin 29.4 pg (27.0-33.0); Mean Corpuscular Volume 89.5 fL (80.0-98.0); NRBC Abs Auto 0.000 X10*3/uL (0.0-0.012); NRBC Pct Auto 0.0 /100WBC (0.0-0.2); Platelet Count 146 X10*3/uL (160-400); Red Blood Count 4.29 X10*6/uL (4.20-5.50); White Blood Count 6.8 X10*3/uL (4.8-10.8)
[2025-02-14 16:15] LABS: Alanine Aminotransferase 9 U/L (0-31); Albumin Level 4.4 g/dL (3.5-5.0); Alkaline Phosphatase 128 U/L (39-117); Anion Gap 12 (12-20); Aspartate Amino Transferase 33 U/L (5-31); Blood Urea Nitrogen 16 mg/dL (9-16); Calcium 9.6 mg/dL (8.4-10.2); Carbon Dioxide 27 mmol/L (22-29); Chloride 106 mmol/L (96-108); Creatinine Clr Calc Pharmacy 85.5; Estimated Glomerular Filt Rate > 60; Lipase 36 U/L (8-78); Magnesium 2.1 mg/dL (1.6-2.6); Potassium 4.1 mmol/L (3.3-5.1); Sodium 141 mmol/L (135-145); Total Protein 7.3 g/dL (6.5-8.0)
[2025-02-14 16:23] LABS: Troponin-I High Sensitivity < 2.7 ng/L (<3.5-17.0)
[2025-02-14 16:38] LABS: D Dimer High Sensitivity < 150 NG/ML
[2025-02-14 16:47] VITALS: BP 105/54; PULSE 67; RESP 17; TEMP 36.7; O2SAT 100
[2025-02-14 17:01] LABS: Thyroid Stimulating Hormone 1.51 uIU/mL (0.32-4.0)
[2025-02-14 17:38] VITALS: BP 105/54; PULSE 67; RESP 17; TEMP 36.7; O2SAT 100
== END 2025-02-14 17:40 | disposition home or self-care (01) ==
PROVIDERS: Physician Assistant Medical; Emergency Provider Emergency Medicine; PCP Internal Medicine
DX: R00.2 Palpitations (principal); R11.0 Nausea; E03.9 Hypothyroidism, unspecified; Z79.899 Other long term (current) drug therapy
CPT/HCPCS: 36415; 71046; 80053; 83690; 83735; 84443; 84484; 85025; 85379; 93005; 99284; 99285

== ENCOUNTER → 2025-02-14 13:22 | Outpatient (BNV) | payer OTHER, SELFPAY | PROVIDERS: Emergency Provider Emergency Medicine; PCP Internal Medicine; Visit Provider Internal Medicine | DX: R00.2 Palpitations (principal) | CPT/HCPCS: 93010 ==

== ENCOUNTER → 2025-02-14 16:05 | Outpatient (BNV) | payer OTHER, SELFPAY | PROVIDERS: Emergency Provider Emergency Medicine; PCP Internal Medicine; Visit Provider Radiology Diagnostic Radiology | DX: R06.02 Shortness of breath (principal) | CPT/HCPCS: 71046 ==

== ENCOUNTER 2025-02-26 12:56 | Outpatient (AMB) | payer OTHER, SELFPAY ==
--- NOTE | 2025-02-26 13:05 | MHC.OFFVIS ---
Vital Signs 02/26/25 13:16 Height 5 ft 3 in Weight 149 lb BMI 26.4 BP 110/80 Intake Visit Reasons: Bladder issues Allergies diphenhydramine (From BENADRYL) Allergy (Intermediate, Verified 02/26/25 13:17) SEVERE LETHARGY oxycodone (From Percocet) Adverse Reaction (Verified 02/26/25 13:17) Anxiety Post menopausal: Yes HPI Comments Details: Presenting complaining of urinary frequency and sensation of complete emptying, no burning on urination PFSH Medical History Panic attacks Asthma Depression Vitamin D deficiency Hypothyroidism Thyroid activity decreased Surgical History Hx of cervical polypectomy Hx of lithotripsy Hx of gastric bypass Family History Father Leukemia Cancer Mother Diabetes mellitus Hypertension Social History Household Members: Spouse Housing: Apartment Alcohol intake: former Comment: medicated with ketorolac and po tylenol Patient Tobacco Use Status: Never used Tobacco Current occupational status: unemployed Sexual orientation: Straight/Heterosexual Gender identity: Female Female Reproductive History Menstrual Age of Menarche: 12 Review of Systems Const All systems reviewed & are unremarkable except as noted in HPI and below Reports as per HPI and Reports no additional complaints GI Reports no additional complaints Reports no additional complaints Physical Exam Vital Signs: Last Vital Signs BP 110/80 02/26/25 13:16 BMI result Body Mass Index 26.4 Assessment & Plan Assessment & Plan (1) Urinary frequency: Code(s): R35.0 - Frequency of micturition Category: Medical Plan: Urine dip done in the office was negative. Discussed with the patient the different possible causes of her symptoms. We will refer to Urology. All questions answered, the patient verbalized understanding. Orders: Referrals Urology Referral R35.0 - Frequency of micturition Coding Level of Care Code Est Pt Level 3 (17156) Diagnoses Urinary frequency R35.0
[2025-02-26 13:16] VITALS: BP 110/80; BMI 26.4
--- OUTSIDE RECORDS SUMMARY | 2025-02-26 15:31 | XMS_ITS | Clinical Summary ---
Author Organization [employer] Address [address] [place] [address] [address] [place] [address] Care Team Providers Care Window Shade Estimator Name Role Phone Adriana Palencia MD [...] hours. Active ergocalciferol (Vitamin D-2) 1.25 MG (51484 UT) capsule take 1 capsule by oral [...] every 6 (six) hours. Active Lactobacillus-Inu kristen ([facility]) capsule take 1 capsule 2 times [...] doses in 24 hours. 9 tablet 1 Active loratadine (Claritin) 10 MG [...] 3 TIMES DAILY. 90 tablet 025 Active valACYclovir (Valtrex) 500 MG tablet TAKE 1 TABLET BY MOUTH EVERY DAY 90 tablet 1 025 Active omeprazole (PriLOSEC) [address] capsuleIndication s:Gastroesophagea l reflux disease without esophagitis TAKE 1 CAPSULE BY MOUTH BEFORE A MEAL 90 capsule 1 025 Active baclofen (Lioresal) 10 MG tabletIndications :Muscle spasm,Pain TAKE 1 TABLET BY MOUTH 3 TIMES DAY NEEDED 270 tablet 025 Active omeprazole (PriLOSEC) [address] capsuleIndication s:Gastroesophagea l reflux disease without esophagitis TOME 1 CAPSULA POR VIA ORAL TODOS LOS DIAZ BEFORE A MEAL 90 capsule 1 025 2024 Discontinued baclofen (Lioresal) 10 MG tabletIndications :Muscle spasm,Pain TAKE 1 TABLET BY MOUTH THREE TIMES A DAY NEEDED 270 tablet 025 2024 Discontinued Active Problems [...] life style modifications, diet and referral to retail zone specialist. Recommended to decrease soda and sugary [...] Encounters Date Type Department Care Team Description 02/21/2025 Refill [facility] [address] [place] [address] Adriana Palencia MD Muscle spasm; Pain 02/17/2025 Patient Outreach [facility] [address] [place] [address] Adriana Palencia MD 02/14/2025 Orders Only GENERIC EXTERNAL DATA DEPARTMENT Provider, Generic External Data 02/05/2025 Refill [facility] MEDICINE [address] [place] [address] Adriana Palencia MD Gastroesophageal reflux disease without esophagitis 01/23/2025 Orders Only GENERIC EXTERNAL DATA DEPARTMENT Provider, Generic External Data 01/13/2025 Orders Only GENERIC EXTERNAL DATA DEPARTMENT Provider, Generic External Data 12/25/2024 Orders Only GENERIC EXTERNAL DATA DEPARTMENT Provider, Generic External Data 12/09/2024 3:30 PM EDT Office Visit [facility] MEDICINE [address] [place] [phone] Manju Jennings NP Gastroesophageal reflux disease, unspecified whether esophagitis present (Primary Dx) 12/09/2024 Travel 12/07/2024 Refill [facility]INE [address] [place] [address] Adriana Palencia MD 12/06/2024 Telephone [facility] MEDICINE [address] [place] [address] [phone] Bree Ag MD No Show 12/05/2024 Telephone [facility]INE [address] [place] [address] [phone] Adriana Palencia MD Chart Prep 12/03/2024 Travel 12/02/2024 Telephone [facility]ICINE [address] [place] [phone] Adriana Palencia MD Nurse Triage from Last [...] 1970 FIT 1970 FOBT 1970 Sigmoidoscopy 1970 RSV Patients and Patients Aged 60 years or older (1 - Risk 50-74 years 1-dose series) 01/03/2020 Zoster Vaccines (2 of 2) 04/03/2023 02/06/2023 COVID-19 Vaccine (3 - season) 2024 08/04/2020, [...] Td or Tdap) 06/24/2034 06/24/2024, 04/30/2013, 07/10/2008 Hepatitis B Vaccines Completed 03/19/2014, 04/30/2013, 04/30/2012, [...] Name Priority Date/Time Associated Diagnosis Comments XR CHEST 2 VIEWS Routine 02/14/2025 4:50 PM EDT D DIMER HIGH SENSITIVITY Routine 02/14/2025 4:14 PM EDT TSH Routine 02/14/2025 3:55 PM EDT HIGH SENSITIVITY TROPONIN I Routine 02/14/2025 3:55 PM EDT LIPASE Routine 02/14/2025 3:55 PM EDT MAGNESIUM Routine 02/14/2025 3:55 PM EDT COMPREHENSIVE METABOLIC PANEL Routine 02/14/2025 3:55 PM EDT CBC WITH AUTO DIFFERENTIAL Routine 02/14/2025 3:55 PM EDT TSH Routine 01/23/2025 3:24 PM EDT T4, [...] Relevant to Health Maintenance Results * XR Chest 2 Views (02/14/2025 4:50 PM EDT) Anatomical Region Laterality Modality Chest Radiographic Marylou ging 02/14/2025 4:50 PM EDT Narrative 02/14/2025 5:04 PM EDT [address] [address] XRay Report Signed Patient: Sudha Dean MR#: [id number] : 1970 Acct:[id number] Age/Sex: 55 / F ADM Date: 02/14/25 Loc: .ED Attending Dr: Ordering Physician: Patrick Orr MD Date of Service: 02/14/25 Procedure(s): XR chest 2V Accession Number(s): [id number] cc: Adriana aPlencia MD; Patrick Orr MD Reason for Exam: shortness of breath EXAMINATION: XR CHEST CLINICAL INFORMATION: shortness of breath COMPARISON: 02/23/2023 TECHNIQUE: 2 views of the chest were obtained. FINDINGS: No significant abnormality is noted involving the heart, lungs, mediastinum, bony thorax or soft tissues. Surgical clips are present left of the midline projecting over the left hemidiaphragm. XR/XR chest 2V IMPRESSION: No acute disease Electronically signed by: Parminder Velasco MD 02/14/2025 05:00 PM EDT Dictated By: Parminder Velasco MD Signed By: <Electronically signed by Parminder Velasco MD in OV> 02/14/25 1700 DD/ 1650 TD/TT: 02/14/25 1657 Ballpoint Pen Cartridge Tester: Procedure Note Donotuseinterpreter, Image - 02/14/[address] [address] XRay Report Signed Patient: Sudha Dean [facility]#: [id number] : 1970Acct:[id number] Age/Sex: 55 / FADM Date: 02/14/25 Loc: HO.ED Attending Dr: Ordering Physician: Patrick Orr MD Date of Service: 02/14/25 Procedure(s): XR chest 2V Accession Number(s): [id number] cc: Adriana Palencia MD; Patrick Orr MD Reason for Exam: shortness of breath EXAMINATION: XR CHEST CLINICAL INFORMATION: shortness of breath COMPARISON: 02/23/2023 TECHNIQUE: 2 views of the chest were obtained. FINDINGS: No significant abnormality is noted involving the heart, lungs, mediastinum, bony thorax or soft tissues. Surgical clips are present left of the midline projecting over the left hemidiaphragm. XR/XR chest 2V IMPRESSION: No acute disease Electronically signed by: Parminder Velasco MD 02/14/2025 05:00 PM EDT Dictated By: Parminder Velasco MD Signed By: <Electronically signed by Parminder Velasco MD in OV> 02/14/25 1700 DD/ 1650 TD/TT: 02/14/25 1657 Ballpoint Pen Cartridge Tester: [facility] External Provider IMG XR PROCEDURES Final Result * D Dimer High Sensitivity (02/14/2025 4:14 PM EDT) D Dimer High Sensitivity <150 NG/ML [facility] Comment:D-DIMER HS REFERENCE RANGENote: Our assay reports D-Dimer Units (D- DU).The cut-off value for venous thromboembolic (VTE) disease is230 ng/mL. This value has a very high negative predictivevalue when the patient has a low to moderate clinicalprobability of VTE.The upper limit of normal is 243 ng/mL. 02/14/2025 4:14 PM EDT 02/14/2025 4:16 PM EDT Generic External Data Provider LAB BLOOD ORDERAB LES Final Result Performing Organization Address [facility] Co de Phone Number [facility] [address] [place] [phone] * High Sensitivity Troponin I (02/14/2025 3:55 PM EDT) [facility] TROPONIN I HIGH SENSITIVITY <2.7 <3.5 - 17.0 ng/L [facility] Comment:The Mac high sens itivity Troponin-I results should beused in conjunction with other diagnostic information suchas ECG, clinical observations and information, and patientsymptoms to aid in the diagnosis of DE. 02/14/2025 3:55 PM EDT 02/14/2025 3:59 PM EDT Generic External Data Provider LAB BLOOD ORDERAB LES Final Result Performing Organization Address [facility] de Phone Number [facility] [address] [place] [phone] * (ABNORMAL) CBC auto differential (02/14/2025 3:55 PM EDT) Only the most recent of2 resultswithin the time period is included. [facility] White Blood Count 6.8 4.8 - 10.8 X10*3/uL [facility] Red Blood Count 4.29 4.20 - 5.50 X10*6/uL [facility] Hemoglobin 12.6 12.0 - 16.0 g/dl [facility] Hematocrit 38.4 37.0 - 47.0 % [facility] Mean Corpuscular Volume 89.5 80.0 - 98.0 fL [facility] Mean Corpuscular Hemoglobin 29.4 27.0 - 33.0 pg [facility] Mean Corpuscular HGB Conc 32.8 31.0 - 35.0 g/dl [facility] Red Cell Distribution Width 14.3 11.0 - 16.0 % [facility] Platelet Count 146(L) 160 - 400 X10*3/uL [facility] Mean Platelet Volume 10.3 9.4 - 12.3 fL [facility] Neutrophils Percent Auto 60.9 45 - 73 % [facility] Imm Gran Pct Auto 0.3 0.0 - 0.4 % [facility] Lymphocytes Percent Auto 29.5 20 - 40 % [facility] Monocytes Percent Auto 6.8 2 - 11 % [facility] Eosinophils Percent Auto 1.9 0 - 4 % [facility] Basophils Percent Auto 0.6 0 - 2 % [facility] NRBC Pct Auto 0.0 0.0 - 0.2 /100WBC [facility] Neutrophils Absolute Auto 4.1 2.0 - 8.3 x10*3/uL [facility] Imm Gran Abs Auto 0.02 0.00 - 0.03 X10*3/uL [facility] Lymphocytes Absolute Auto 2.0 1.2 - 4.9 X10*3/uL [facility] Monocytes Absolute Auto 0.5 0.1 - 1.2 X10*3/uL [facility] Eosinophils Absolute Auto 0.1 0.0 - 0.4 X10*3/uL [facility] Basophils Absolute Auto 0.0 0.0 - 0.2 X10*3/uL [facility] NRBC Abs Auto 0.000 0.0 - 0.012 X10*3/uL [facility] 02/14/2025 3:55 PM EDT 02/14/2025 3:59 PM EDT us Generic External Data Provider LAB BLOOD ORDERAB LES Final Result [facility] [address] [place] [phone] * TSH (02/14/2025 3:55 PM EDT) Only the most recent of2 resultswithin the time period is included. Thyroid Stimulating Hormone 1.51 0.32 - 4.0 uIU/mL [facility] Comment:TSH 3rd Generation ( [facility]) 02/14/2025 3:55 PM EDT 02/14/2025 3:59 PM EDT Generic External Data Provider LAB BLOOD ORDERAB LES Final Result Performing Organization Address City/[facility]/ZIP Co de Phone Number [facility] [address] [place] [phone] * Magnesium (02/14/2025 3:55 PM EDT) Only the most recent of2 resultswithin the time period is included. Magnesium 2.1 1.6 - 2.6 mg/dL [facility] 02/14/2025 3:55 PM EDT 02/14/2025 3:59 PM EDT Generic External Data Provider LAB BLOOD ORDERAB LES Final Result Performing Organization Address [facility] Co de Phone Number [facility] [address] [place] [phone] * Lipase (02/14/2025 3:55 PM EDT) Pathologist [facility] Lipase 36 8 - 78 U/L [facility] 02/14/2025 3:55 PM EDT 02/14/2025 3:59 PM EDT Generic External Data Provider LAB BLOOD ORDERAB LES Final Result Performing Organization Address [facility] Co de Phone Number [facility] [address] [place] [phone] * (ABNORMAL) Comprehensive Metabolic Panel (02/14/2025 3:55 PM EDT) Only the most recent of2 resultswithin the time period is included. Sodium 141 135 - 145 mmol/L [facility] Potassium 4.1 3.3 - 5.1 mmol/L [facility] Chloride 106 96 - 108 mmol/L [facility] Carbon Dioxide 27 22 - 29 mmol/L [facility] Anion Gap 12 12 - 20 [facility] Urea Nitrogen (BUN) 16 9 - 16 mg/dL [facility] Creatinine, Serum 0.69 0.5 - 1.4 mg/dL [facility] Creatinine Clr Calc Pharmacy 85.5 [facility] Comment:Provided height and weight: 160.02 cm,68.492 kg.eGFR (calculated from the MDRD study equation) and eCrCl(calculated from the Cockcroft-Gault equation) are based ondifferent parameters and may not yield comparable results.If eCrCl result is absurd, please check patient'sheight/weight. Estimated Glomerular Filt Rate >60 [facility] Comment:Chronic Kidney Disea se: Estimated GFR < 60 mL/min/1.98s3Ccrhpa Kidney Disease: Estimated GFR < 15 mL/min/1.73m2 Glucose 95 60 - 115 mg/dL [facility] Calcium 9.6 8.4 - 10.2 mg/dL [facility] Bilirubin, Total 0.3 0.0 - 1.0 mg/dL [facility] Aspartate Amino Transferase 33(H) 5 - 31 U/L [facility] Alanine Aminotransferase 9 0 - 31 U/L [facility] Total Protein 7.3 6.5 - 8.0 g/dL [facility] Albumin Level 4.4 3.5 - 5.0 g/dL [facility] Alkaline Phosphatase 128(H) 39 - 117 U/L [facility] 02/14/2025 3:55 PM EDT 02/14/2025 3:59 PM EDT us Generic External Data Provider LAB BLOOD ORDERAB LES Final Result [facility] [address] [place] [phone] * T4, Free (01/23/2025 3:24 PM EDT) Free T4 (Free Thyroxine) 0.99 0.71 - 1.85 ng/dL [facility] 01/23/2025 3:24 PM EDT 01/23/2025 3:24 PM EDT Generic External Data Provider LAB BLOOD ORDERAB LES Final Result Performing Organization Address [facility] de Phone Number [facility] [address] [place] [phone] * Influenza A B2 ID NOW (Mac) (01/13/2025 11:25 PM EDT) IDNOW SERIAL# [id number] [facility] Influenza A Negative Negative [facility] Influenza B2 Negative Negative [facility] Influenza A B2 Note See Note [facility] Comment:The Mac ID NOW In fluenza [...] GENERAL ORDERABLES Final Result Performing Organization Address [facility] Co de Phone Number [facility] [address] [place] [phone] * Strep A Nucleic Acid (01/13/2025 11:25 PM EDT) [employer] SERIAL# [id number] [facility] Strep A Nucleic Acid Negative Negative [facility] Comment:All test results mus t be [...] LAB MICROBIOLOGY - GENERAL ORDERABLES Final Result [facility] [address] [place] [phone] * (ABNORMAL) COVID-19 ID NOW (MAC) (01/13/2025 11:25 PM EDT) [employer] SERIAL# [id number] [facility] COVID-19 TEST Positive (A) Negative [facility] COVID-19 NOTE See Note [facility] Comment: Results are for the identification of SARS-CoV2 RNA. TheSARS-CoV2 RNA is generally detectable in respiratory samplesduring the acute phase of infection. Positive results areindicative of the presence of SARS-CoV-2 RNA; clinicalcorrelation with patient history and other diagnosticinformation is necessary to determine patient infectionstatus. Positive results do not rule out bacterial infectionor co- infection with other viruses.Testing facilities within the [facility] and [facility] are required to report all positive [...] LAB MOLECULAR KENAN GNOST[employer] ORDERABLES Final Result [facility] [address] [place] [phone] * CT Head w/o Contrast (12/25/2024 7:05 PM EDT) Anatomical Region Laterality Modality Head, Neck Computed Tomogra phy 12/25/2024 7:05 PM EDT Narrative 12/25/2024 7:06 PM EDT [address] [address] [address] Scan Report Signed Patient: Sudha Dean MR#: [id number] : 1970 Acct:[id number] Age/Sex: 54 / F ADM Date: 12/25/24 Loc: HO.ED Attending Dr: Ordering Physician: Gaudencio Eldridge Date of Service: 12/25/24 Procedure(s): CT head/brain wo IV con Accession Number(s): [id number] cc: Adriana Palencia MD; Gaudencio Eldridge Report Number: [id number]: Total DLP = 0.00 mGy-cm Reason for [...] OV> 12/26/24 0156 DD/ 04 TD/TT: 12/25/241904 Ballpoint Pen Cartridge Tester: Procedure Note Donotuseinterpreter, Image - 12/26/[address] [address] [address] Scan Report Signed Patient: Sudha Dean [facility]#: [id number] : 1970Acct:[id number] Age/Sex: 54 / FADM Date: 12/25/24 Loc: HO.ED Attending Dr: Ordering Physician: Gaudencio Eldridge Date of Service: 12/25/24 Procedure(s): CT head/brain wo IV con Accession Number(s): [id number] cc: Adriana Palencia MD; Gaudencio Eldridge Report Number: [id number]: Total DLP = 0.00 mGy-cm Reason for [...] OV> 12/26/24 0156 DD/ 04 TD/TT: 12/25/241904 Ballpoint Pen Cartridge Tester: [facility] External Provider IMG CT PROCEDURES Edited Result - Final * Sed Rate by Modified Jordana (12/25/2024 3:17 PM EDT) Erythrocyte Sedimentation Rate 16 0 - 20 MM/HR [facility] Comment:Patients with polycy themia and many hemoglobin abnormalitiesmay have depressed sed rates whereas patients with anemiamay have elevated sed rates. 12/25/2024 3:17 PM EDT 12/25/2024 3:23 PM EDT us Generic External Data Provider LAB BLOOD ORDERAB LES Final Result Performing Organization Address City/[facility]/ZIP Co de Phone Number [facility] [address] [place] [phone] * C-reactive Protein (12/25/2024 3:17 PM EDT) C Reactive Protein <0.04 < or = 0.50 mg/dL [facility] 12/25/2024 3:17 PM EDT 12/25/2024 3:23 PM EDT Generic External Data Provider LAB BLOOD ORDERAB LES Final Result Performing Organization Address [facility] Co de Phone Number [facility] [address] [place] [phone] * BI Mammogram Screening Tomosynthesis Bilateral (02/22/2024 8:40 AM EST) Anatomical Region Laterality Modality Breast Bilateral Mammography 02/22/2024 8:40 AM EST Narrative 03/01/2024 4:10 PM EST [facility] [address] [place] [address] Mammography Report Signed Patient: Sudha Dean MR#: [id number] : 1970 Acct:[id number] Age/Sex: 54 / F ADM Date: 02/22/24 Loc: HO.MAMMO Attending Dr: Adriana Sanches MD Ordering Physician: Adriana Palencia MD Results: 1Negative Date of Service: 02/22/24 Follow Up: 1 Year From Orig inal Mammogram Procedure(s): MM tomosynthesis screening BI Accession Number(s): [id number] cc: Adriana Palencia MD EXAMINATION: MM SCREENING [...] 03/01/24 1607 DD/ 0840 TD/TT: 02/22/24 0903 Ballpoint Pen Cartridge Tester: Procedure Note Donotuseinterpreter, Image - 03/01/20[facility] [address] [place], [place] [address] Mammography Report Signed Patient: Sudha Dean [facility]#: [id number] : 1970Acct:[id number] Age/Sex: 54 / FADM Date: 02/22/24 Loc: HO.MAMMO Attending Dr: Adriana Sanches MD Ordering Physician: Adriana Palencia MDResults: 1Negative Date of Service: 02/22/24Follow Up: 1 Year From Orig ina Mammogram Procedure(s): MM tomosynthesis screening BI Accession Number(s): [id number] cc: Adriana Palencia MD EXAMINATION: MM SCREENING [...] 03/01/24 1607 DD/ 0840 TD/TT: 02/22/24 0903 Ballpoint Pen Cartridge Tester: us Adriana Sanches MD IMG BI PROCEDURES Fin al Result * (ABNORMAL) Lipid Panel with Reflex to Direct LDL (12/13/2023 12:18 PM EDT) Triglycerides 52 <150 mg/dL [facility] Comment:Desirable Triglyceri de: less than 150 mg/dLBorderline High Triglyceride 150-199 mg/dLHigh Triglyceride: 200-499 mg/dLVery High Triglyceride: greater than or equal to 5OO mg/dL Cholesterol 187 <200 mg/dL [facility] Comment:Desirable Cholestero l: less than 200 mg/dLBorderline High Cholesterol: 200-239 mg/dLHigh Cholesterol: greater than 239 mg/dL LDL Cholesterol Calculated 109(H) <100 mg/dL [facility] Comment:Desirable LDL: less than 100 mg/dLNear Optimal/Above Optimal LDL: 110- 129 mg/dLBorderline High LDL: 130-159 mg/dLHigh LDL: 160-189 mg/dLVery High LDL: greater than or equal to 190 mg/dL HDL Cholesterol 68 >40 mg/dL [facility] Comment:Desirable HDL: great er than 40 mg/dL Note: This HDL assay may give artificially low results in patients with liver disease. Blood 12/13/2023 12:1 8 PM EDT 12/13/2023 1:25 PM EDT Adriana Sanches MD LAB BLOOD ORDERABLES Final Result Performing Organization Address [facility] Co de Phone Number [facility] [address] [place] [phone] * Hepatitis C Viral RNA, Quantitative, Real-Time PCR (12/13/2023 12:18 PM EDT) Pathologist [facility] Hepatitis C Viral Load <15 NOT DETECTED NOT DETECTED IU/mL [facility] HCV Log PCR <1.18 NOT DETECTED NOT DETECTED Log IU/mL [facility] Comment:For additional infor mattitus, please refer tohttp://education.Rifiniti/faq/KRD38e4(This link is being provided for informational/educational purposes only.)THIS TEST WAS PERFORMED AT:[facility] [place] [phone] KENNEDY MD Blood 12/13/2023 12:1 8 PM EDT 12/13/2023 1:25 PM EDT Adriana Sanches MD LAB BLOOD ORDERABLES Final Result Performing Organization Address [facility] de Phone Number [facility] [address] [place] [phone] * HIV-1/2 Antigen and Antibodies, Fourth Generation, with Reflexes (12/13/2023 12:18 PM EDT) [facility] HIV AB/AG Nonreactive Nonreactive [facility] Comment:HIV-1 p24 Ag and/or HIV-1/HIV-2 Ab not detected.A test result that is nonreactive does not exclude thepossibility of exposure to or infection with HIV-1 and/orHIV-2. Nonreactive results in this assay for individualswith prior exposure to HIV-1 and/or HIV-2 may be due toantigen and antibody levels that are below the limit ofdetection of this assay.The [employer] HIV Ag/Ab Combo assay result andsupplemental assay results should be interpreted inconjunction with the patient's clinical presentation,history and other laboratory results. If the results areinconsistent with clinical evidence, additional testing issuggested to confirm the result. Blood Venous blood specimen / Unknown 12/13/2023 12:18 PM EDT 12/13/2023 1:15 PM EDT us Adriana Sanches MD LAB BLOOD ORDERABLES Final Result [facility] [address] [place] [phone] * Pap Smear (07/02/2021) Pap Negative for intraephithelial lesion or malignancy Negative for intraephithelial lesion or malignancy, Other HPV Undetected Historical Provider HEALTH MAINTENANCE Final Result from Last 3 Months or Most Recently Relevant to Health Maintenance Insurance [facility] STANDARD [facility] ONE CARE < 65 Care Teams Window Shade Estimator Relationship Specialty Start Date End Date Adriana Palencia MD [address] [place] [phone] PCP - General Family Medicine 06/01/18
--- OUTSIDE RECORDS SUMMARY | 2025-02-26 15:31 | XMS_ITS | Encounter Summary ---
Author Organization [employer] Address [address] [facility] 7t [place] [address] Care Team Providers Care Fresco Artist Name Role Phone Adriana Palencia MD Primary Care Provide r Reason for Visit * Reason Comments Med Refill Encounter Details Date Type Department Care Team ([facility] st Contact Info) Description 02/21/2025 Refill [facility] MEDICINE [address] [place] [address] Adriana Palencia MD 230 [place] [address] Muscle spasm; Pain Social History Tobacco Use [...] documented as of this encounter Care Teams Fresco Artist Relationship Specialty Start Date End Date Adriana Palencia MD 230 [place] [address] PCP - General Family Medicine 06/01/18 documented as of this encounter
--- OUTSIDE RECORDS SUMMARY | 2025-02-26 15:32 | XMS_ITS | Encounter Summary ---
Author Organization [employer] Address [address] [place] [address] 7 [place] [address] Care Team Providers Care Director Embalmer Name Role Phone Adriana Palencia MD Primary Care Provide r Reason for Visit * Reason Comments Med Refill Encounter Details Date Type Department Care Team ([facility] st Contact Info) Description 01/10/2023 Refill [facility] MEDICINE 230 [place] [address] Adriana Paelncia MD 230 [place] [address] Social History Tobacco Use Types Packs/Day Years [...] as of this encounter Care Teams Director Embalmer Relationship Specialty Start Date End Date Adriana Palencia MD 230 [place] [address] PCP - General Family Medicine 06/01/18 documented as of this encounter
--- OUTSIDE RECORDS SUMMARY | 2025-02-26 15:32 | XMS_ITS | Encounter Summary ---
Author Organization [employer] Address [address] [facility] 7t [place] [address] Care Team Providers Care Cattle Farmer Name Role Phone Adriana Palencia MD Primary Care Provide r Reason for Visit * Reason Comments Med Change Request Encounter Details Date Type Department Care Team ([facility] st Contact Info) Description 09/10/2024 Refill [facility] MEDICINE 230 [place] [address] Adriana Palencia MD 230 [place] [address] Class 1 obesity due to excess calories [...] documented as of this encounter Care Teams Cattle Farmer Relationship Specialty Start Date End Date Adriana Palencia MD 230 [place] [address] PCP - General Family Medicine 06/01/18 documented as of this encounter
--- OUTSIDE RECORDS SUMMARY | 2025-02-26 15:32 | XMS_ITS | Encounter Summary ---
Author Organization [employer] Address [address] [facility] 7t [place] [address] Care Team Providers Care Relief Operator Name Role Phone Adriana Palencia MD Primary Care Provide r Reason for Visit * Reason Comments Med Change Request Encounter Details Date Type Department Care Team ([facility] st Contact Info) Description 08/06/2024 Refill [facility] MEDICINE 230 [place] [address] Adriana Palencia MD [address] [place] [address] Class 1 obesity due to excess calories [...] documented as of this encounter Care Teams Relief Operator Relationship Specialty Start Date End Date Adriana Palencia MD 230 [place] [address] PCP - General Family Medicine 06/01/18 documented as of this encounter
--- OUTSIDE RECORDS SUMMARY | 2025-02-26 15:32 | XMS_ITS | Encounter Summary ---
Author Organization [employer] Address [address] [facility] 7t [place] [address] Care Team Providers Care Career Development Specialist Name Role Phone Adriana Palencia MD Primary Care Provide r Encounter Details Date Type Department Care Team ([facility] st Contact Info) Description 01/18/2023 Abstract [facility] MEDICINE 230 [place] [address] Eliane Raman Social History Tobacco Use Types [...] documented as of this encounter Care Teams Career Development Specialist Relationship Specialty Start Date End Date Adriana Palencia MD [address] [place] [address] PCP - General Family Medicine 06/01/18 documented as of this encounter
--- OUTSIDE RECORDS SUMMARY | 2025-02-26 15:32 | XMS_ITS | Encounter Summary ---
Author Organization [employer] Address [address] [place] [address] 7 [place] [address] Care Team Providers Care Body Care Manager Name Role Phone Adriana Palencia MD Primary Care Provide r Reason for Visit * Reason Comments Med Refill Encounter Details Date Type Department Care Team ([facility] st Contact Info) Description 09/25/2022 Refill [facility] MEDICINE [address] [place] [address] Adriana Palencia MD [address] [place] [address] Fibromyalgia Social History Tobacco Use Types Packs/Day [...] documented as of this encounter Care Teams Body Care Manager Relationship Specialty Start Date End Date Adriana Palencia MD 230 [place] [address] PCP - General Family Medicine 06/01/18 documented as of this encounter
--- OUTSIDE RECORDS SUMMARY | 2025-02-26 15:32 | XMS_ITS | Encounter Summary ---
Author Organization [facility] Address [address] [facility] [address] [place] [address] Phone Care Team Providers Care Mold Capper Helper Name Role Phone Unknown, Unknown Primary Care Provider Nikia pina Encounter Details Date Type Department Care Team (Latest Contact Info) Description 04/21/2017 Ancillary Orders [facility] [address] [place] [address] [place] [address] Hector Zamora DO [address] [place] [address] Palpitations; Chest pain, unspecified type; Syncope, unspecified [...] type documented in this encounter Care Teams Mold Capper Helper Relationship Specialty Start Date End Date Unknown, Unknown, MD PCP - General 04/21/17 documented as of this encounter Additional Source Comments The information contained in this document represents components of the legal health record. It is not the complete legal health record.[facility]
--- OUTSIDE RECORDS SUMMARY | 2025-02-26 15:32 | XMS_ITS | Encounter Summary ---
Author Organization [employer] Address [address] [facility] [address] 7[address] [place] [address] Care Team Providers Care Feed Mill Tender Name Role Phone Adriana Palencia MD Primary Care Provide r Reason for Visit * Reason Comments Med Refill Encounter Details Date Type Department Care Team ([facility] st Contact Info) Description 03/10/2024 Refill [facility] 230 [place] [address] Adriana Palencia MD 230 [place] [address] Vitamin B12 deficiency Social History Tobacco Use [...] documented as of this encounter Care Teams Feed Mill Tender Relationship Specialty Start Date End Date Adriana Palencia MD 230 [place] [address] PCP - General Family Medicine 06/01/18 documented as of this encounter
--- OUTSIDE RECORDS SUMMARY | 2025-02-26 15:32 | XMS_ITS | Encounter Summary ---
Author Organization [employer] Address [address] [facility] 7 [place] [address] Care Team Providers Care Web User Experience Strategist Name Role Phone Adriana Palencia MD Primary Care Provide r Encounter Details Date Type Department Care Team ([facility] st Contact Info) Description 05/17/2022 Telephone [facility] MEDICINE 230 [place] [address] Rosemary Espana RN [address] [place] [address] Social History Tobacco Use Types Packs/Day Years [...] EST T triaged today, seen ER at [facility] on 05/14 for anxiety issues, chest pain, and ear buzzing.. please obtain ER records. documented in this encounter Plan of Treatment Not on file documented as of this encounter Visit Diagnoses Not on filedocumented in this encounter Care Teams Web User Experience Strategist Relationship Specialty Start Date End Date Adriana Palencia MD 230 [place] [address] PCP - General Family Medicine 06/01/18 documented as of this encounter
--- OUTSIDE RECORDS SUMMARY | 2025-02-26 15:32 | XMS_ITS | Encounter Summary ---
Author Organization [employer] Address [address] [facility] 7t [place] [address] Care Team Providers Care Welder Production Line Gas Name Role Phone Adriana Palencia MD Primary Care Provide r Reason for Visit * Reason Comments Med Refill Encounter Details Date Type Department Care Team ([facility] st Contact Info) Description 08/02/2024 Refill [facility] MEDICINE 230 [place] [address] Adriana Palencia MD 230 [place] [address] Class 1 obesity due to excess calories [...] documented as of this encounter Care Teams Welder Production Line Gas Relationship Specialty Start Date End Date Adriana Palencia MD 230 [place] [address] PCP - General Family Medicine 06/01/18 documented as of this encounter
--- OUTSIDE RECORDS SUMMARY | 2025-02-26 15:32 | XMS_ITS | Encounter Summary ---
Author Organization [employer] Address [address] [facility] 7 [place] [address] Care Team Providers Care Finishing Pan Operator Name Role Phone Adriana Palencia MD Primary Care Provide r Reason for Visit * Reason Onset Date Comments Med Refill 05/21/2024 Encounter Details Date Type Department Care Team ([facility] st Contact Info) Description 05/21/2024 Telephone [facility] MEDICINE 230 [place] [address] Adriana Palencia MD [address] [place] [address] Med Refill Social History Tobacco Use Types [...] MG/0.5ML solution auto-injector To be sent to: [facility]/pharmacy #[id number] [place], [place] - [address] [place] [address] documented in this encounter Plan of Treatment Not on file documented as of this encounter Visit Diagnoses Not on filedocumented in this encounter Additional Health Concerns Assessment Noted Time PHQ-9 Depression Total Score: 15 024 9:44 AM EST documented as of this encounter Care Teams Finishing Pan Operator Relationship Specialty Start Date End Date Adriana Palencia MD 230 [place] [address] PCP - General Family Medicine 06/01/18 documented as of this encounter
--- OUTSIDE RECORDS SUMMARY | 2025-02-26 15:32 | XMS_ITS | Encounter Summary ---
Author Organization [employer] Address [address] [facility] 7t [place] [address] Care Team Providers Care Tight Cooper Name Role Phone Adriana Palencia MD Primary Care Provide r Reason for Visit * Reason Comments Med Refill Encounter Details Date Type Department Care Team ([facility] st Contact Info) Description 08/03/2024 Refill [facility] MEDICINE 230 [place] [address] Adriana Palencia MD 230 [place] [address] Class 1 obesity due to excess calories [...] documented as of this encounter Care Teams Tight Cooper Relationship Specialty Start Date End Date Adriana Palencia MD [address] [place] [address] PCP - General Family Medicine 06/01/18 documented as of this encounter
--- OUTSIDE RECORDS SUMMARY | 2025-02-26 15:32 | XMS_ITS | Encounter Summary ---
Author Organization [employer] Address [address] [place] [address] 7t [place] [address] Care Team Providers Care Toolroom Helper Name Role Phone Adriana Palencia MD Primary Care Provide r Encounter Details Date Type Department Care Team (Late st Contact Info) Description 03/17/2022 Abstract [facility] MEDICINE 230 [place] [address] ProviderGurvinder MD Social History Tobacco Use Types [...] on filedocumented in this encounter Care Teams Toolroom Helper Relationship Specialty Start Date End Date Adriana Palencia MD 230 [place] [address] PCP - General Family Medicine 06/01/18 documented as of this encounter
--- OUTSIDE RECORDS SUMMARY | 2025-02-26 15:32 | XMS_ITS | Encounter Summary ---
Author Organization [employer] Address [address] [facility] 7 [place] [address] Care Team Providers Care Supervisor Airplane Flight Attendant Name Role Phone Adriana Palencia MD Primary Care Provide r Reason for Visit * Reason Comments Med Refill Encounter Details Date Type Department Care Team ([facility] st Contact Info) Description 12/02/[address] [facility] MEDICINE 230 [place] [address] Bree Ag MD [address] [place] [address] Generalized anxiety disorder Social History Tobacco Use [...] documented as of this encounter Care Teams Supervisor Airplane Flight Attendant Relationship Specialty Start Date End Date Adriana Palencia MD [address] [place] [address] PCP - General Family Medicine 06/01/18 documented as of this encounter
--- OUTSIDE RECORDS SUMMARY | 2025-02-26 15:32 | XMS_ITS | Encounter Summary ---
Author Organization [employer] Address [address] [facility] 7 [place] [address] Care Team Providers Care Rheumatology Nurse Name Role Phone Adriana Palencia MD Primary Care Provide r Reason for Visit * Reason Comments Med Refill Encounter Details Date Type Department Care Team ([facility] st Contact Info) Description 08/31/2023 Refill [facility] MEDICINE [address] [place] [address] Adriana Palencia MD [address] [place] [address] Gastroesophageal reflux disease without esophagitis Social History [...] documented as of this encounter Care Teams Rheumatology Nurse Relationship Specialty Start Date End Date Adriana Palencia MD [address] [place] [address] PCP - General Family Medicine 06/01/18 documented as of this encounter
--- OUTSIDE RECORDS SUMMARY | 2025-02-26 15:32 | XMS_ITS | Encounter Summary ---
Author Organization [employer] Address [address] [facility] 7 [place] [address] Care Team Providers Care Bulb Grader Name Role Phone Adriana Palencia MD Primary Care Provide r Reason for Visit * Reason Comments Med Refill Encounter Details Date Type Department Care Team ([facility] st Contact Info) Description 09/12/2024 Refill [facility] MEDICINE [address] [place] [address] Adriana Palencia MD [address] [place] [address] Acquired hypothyroidism Social History Tobacco Use Types [...] documented as of this encounter Care Teams Bulb Grader Relationship Specialty Start Date End Date Adriana Palencia MD [address] [place] [address] PCP - General Family Medicine 06/01/18 documented as of this encounter
--- OUTSIDE RECORDS SUMMARY | 2025-02-26 15:32 | XMS_ITS | Encounter Summary ---
Author Organization [employer] Address [address] [facility] [address] 7t [place] [address] Care Team Providers Care Environmental Analyst Name Role Phone Adriana Palencia MD Primary Care Provide r Encounter Details Date Type Department Care Team ([facility] st Contact Info) Description 03/14/2023 Abstract [facility] MEDICINE 230 [place] [address] Eliane Raman Social History Tobacco Use Types [...] as of this encounter Care Teams Environmental Analyst Relationship Specialty Start Date End Date Adriana Palencia MD [address] [place] [address] PCP - General Family Medicine 06/01/18 documented as of this encounter
--- OUTSIDE RECORDS SUMMARY | 2025-02-26 15:32 | XMS_ITS | Encounter Summary ---
Author Organization [employer] Address [address] [place] [address] 7 [place] [address] Care Team Providers Care Cnc Specialist Name Role Phone Adriana Palencia MD Primary Care Provide r Reason for Visit * Reason Comments Med Refill Encounter Details Date Type Department Care Team ([facility] st Contact Info) Description 10/31/2022 Refill [facility] MEDICINE [address] [place] [address] Adriana Palencia MD 230 [place] [address] Social History Tobacco Use Types Packs/Day Years [...] documented as of this encounter Care Teams Cnc Specialist Relationship Specialty Start Date End Date Adriana Palencia MD [address] [place] [address] PCP - General Family Medicine 06/01/18 documented as of this encounter
--- OUTSIDE RECORDS SUMMARY | 2025-02-26 15:32 | XMS_ITS | Clinical Summary ---
Author Organization [employer] [facility] Address [address] [place] [address] Care Team Providers Care Pastry Cook Helper Name Role Phone Unavailable Primary Care [...]
--- OUTSIDE RECORDS SUMMARY | 2025-02-26 15:32 | XMS_ITS | Encounter Summary ---
Author Organization [employer] Address [address] [facility] 7t [place] [address] Care Team Providers Care Preschool Teacher'S Assistant Name Role Phone Adriana Palencia MD Primary Care Provide r Reason for Visit * Reason Comments Med Refill Encounter Details Date Type Department Care Team ([facility] st Contact Info) Description 07/19/2024 Refill [facility] MEDICINE [address] [place] [address] Adriana Palencia MD [address] [place] [address] Class 1 obesity due to excess calories [...] documented as of this encounter Care Teams Preschool Teacher'S Assistant Relationship Specialty Start Date End Date Adriana Palencia MD [address] [place] [address] PCP - General Family Medicine 06/01/18 documented as of this encounter
--- OUTSIDE RECORDS SUMMARY | 2025-02-26 15:32 | XMS_ITS | Encounter Summary ---
Author Organization [employer] Address [address] [facility] 7t [place] [address] Care Team Providers Care Clinical Field Specialist Name Role Phone Adriana Palencia MD Primary Care Provide r Reason for Visit * Reason Comments Med Refill Encounter Details Date Type Department Care Team ([facility] st Contact Info) Description 04/14/2023 Refill [facility] MEDICINE [address] [place] [address] Heather Wei MD [address] [place] [address] Gastroesophageal reflux disease without esophagitis Social History [...] as of this encounter Care Teams Clinical Field Specialist Relationship Specialty Start Date End Date Adriana Palencia MD [address] [place] [address] PCP - General Family Medicine 06/01/18 documented as of this encounter
--- OUTSIDE RECORDS SUMMARY | 2025-02-26 15:32 | XMS_ITS | Encounter Summary ---
Author Organization [employer] Address [address] [place] [address] 7t [place] [address] Care Team Providers Care Locks Inspector Name Role Phone Adriana Palencia MD Primary Care Provide r Reason for Visit * Reason Comments Med Refill Encounter Details Date Type Department Care Team (Late st Contact Info) Description 11/24/2022 Refill [facility] MEDICINE 230 [place] [address] Lilia Mcgregor FNP Migraine without aura and [...] documented as of this encounter Care Teams Locks Inspector Relationship Specialty Start Date End Date Adriana Palencia MD [address] [place] [address] PCP - General Family Medicine 06/01/18 documented as of this encounter
--- OUTSIDE RECORDS SUMMARY | 2025-02-26 15:32 | XMS_ITS | Data Portability ---
Author Organization [facility] Address [address] [place] [address] Care Team Providers Care Kersey Department Supervisor Name Role Phone HIM CCA OTHER Unavailable OTHER Assessment Encounter Date Assessment Date Assessment LastModified by Organization Details LastModified Time 02/06/2024 02/06/2024 I provided real -time medical direction via phone for this encounter and was available for additional phone-based assistance as needed. I have reviewed and agree with the Assessment and Plan as documented by the Spring Assembler. Patient given the opportunity to ask questions. Our service contacted for an assessment of: blood pressure check As per above, patient with h/o PEDRO PABLO and anxiety d/o. Wanted to checked and have her BP checked. Denies CP, SOB. Per swimming pool plasterer helper on the scene, vitals are stable. Please see swimming pool plasterer helper note for details guarding conversation and outcome [...] Not available Not available Not available 02/06/2024 [id number] RxNorm Melany Covarrubias MD [address] [facility], [place], [address] , [facility] - [employer] 4 09:58:03 6689 diphenhyd ramine medicatio n Not available Not available Not available 02/06/2024 [id number] RxNorm Not Available [facility] - production 4 03:38:24 Medications Name Sig Start Date Stop Date Status Note LastModified by Organization Details LastModified Time blood pr monit omr [id number] USE TO CHECK BLOOD PRESSURE EVERY DAY [...] ICD10 Code Diagnosis IMO Codes Diagnosis Note 80215 Melany Covarrubias MD Main - [facility] [address] [place] [phone] 02/06/2024 09:19:38 02/06/2024 10:34:09 Generalized anxiety disorder [id number] F41.1 Health Concerns Section Related Observation LastModified by Organization Detai ls LastModified Time None Recorded Concern Status LastModified by Organization Details LastModified Time None Recorded Advance Directives Directive None Recorded Payers Insurance Date Sequence Insurance Name Policy Number Policy Rosa Covered Member ID Rosa Member ID Guarantor Name 02/20/2024 1 [facility] - DOS ON OR AFTER 2022 - DUAL ELIGIBLE - PENITENTIARY OPTIONS AND ONE CARE (MEDICARE REPLACEMENT/ADV ANTAGE - HMO) Sudha Kinney [id number] Sudha Kinney Notes Date Note Type Note [...] accommodate a visit this evening, call via Sheet Fed Printer [id number], RED flags discussed, she is agreeable to a visit tomorrow 02/05- Spring Assembler Organization Information for [employer] [facility] [employer] Legal Name: [facility] [employer] Address: [address] [place] [address], [place] [address], Child Protective Services Specialist: Kem Verdugo MD [facility] No.: [id number] Spring Assembler POC Test Results from [facility] Test (09:36:50) Test: - Rapid influenza antigen (09:36:52) Flu: - Rapid strep test (09:36:53) Strep: - ..................... ..................... ..................... ..................... ..................... ..................... ............... Spring Assembler Note From [facility]: Pt reports hx [...] ............... Disposition: Fulfilled Melany Covarrubias MD [address] [facility], [place], [address], [employer] - [employer] 02/06/2024 10:17:46 OBGyn Episode No OBEpisode recorded.
--- OUTSIDE RECORDS SUMMARY | 2025-02-26 15:32 | XMS_ITS | Clinical Summary ---
Author Organization [facility] Address [address] [phone] Phone Care Team Providers Care Wind Technician Name Role Phone Unknown, Unknown Primary Care [...] MEDICARE PART A & B Care Teams Wind Technician Relationship Specialty Start Date End Date Unknown, Unknown, PCP - General 04/21/17 Additional Source Comments The information contained in this document represents components of the legal health record. It is not the complete legal health record.[facility]
--- OUTSIDE RECORDS SUMMARY | 2025-02-26 15:32 | XMS_ITS | Encounter Summary ---
Author Organization [employer] Address [address] [facility] 7t [place] [address] Care Team Providers Care Costing Manager Name Role Phone Adriana Palencia MD Primary Care Provide r Reason for Visit * Reason Comments Med Refill Encounter Details Date Type Department Care Team ([facility] st Contact Info) Description 07/29/2024 Refill [facility] MEDICINE 230 [place] [address] Adriana Palencia MD [address] [place] [address] Class 1 obesity due to excess calories [...] documented as of this encounter Care Teams Costing Manager Relationship Specialty Start Date End Date Adriana Palencia MD [address] [place] [address] PCP - General Family Medicine 06/01/18 documented as of this encounter
--- OUTSIDE RECORDS SUMMARY | 2025-02-26 15:32 | XMS_ITS | Encounter Summary ---
Author Organization [employer] Address [address] [facility] 7 [place] [address] Care Team Providers Care Rate Setter Name Role Phone Adriana Palencia MD Primary Care Provide r Reason for Visit * Reason Onset Date Comments Letter Needed 04/18/2023 Encounter Details Date Type Department Care Team ([facility] st Contact Info) Description 04/18/2023 Telephone [facility] MEDICINE [address] [place] [address] Adriana Palencia MD [address] [place] [address] Letter Needed Social History Tobacco Use Types [...] causing herasthma attacks. Please contact pt @ [phone] Prydeinig Speaker documented in this encounter Plan of Treatment Not on file documented as of this encounter Visit Diagnoses Not on filedocumented in this encounter Additional Health Concerns Assessment Noted Time PHQ-9 Depression Total Score: 14 023 3:05 PM EDT documented as of this encounter Care Teams Rate Setter Relationship Specialty Start Date End Date Adriana Palencia MD [address] [place] [id number] PCP - General Family Medicine 06/01/18 documented as of this encounter
--- OUTSIDE RECORDS SUMMARY | 2025-02-26 15:32 | XMS_ITS | Encounter Summary ---
Author Organization [facility] Address [address] [place] [address] 7 [place] [address] Care Team Providers Care Pet House Sitter Name Role Phone Adriana Palencia MD Primary Care Provide r Reason for Visit * Reason Comments Med Refill Encounter Details Date Type Department Care Team (Late st Contact Info) Description 11/02/2022 Refill [facility] MEDICINE [address] [place] [address] Lilia Mcgregor FNP Social History Tobacco Use [...] documented as of this encounter Care Teams Pet House Sitter Relationship Specialty Start Date End Date Adriana Palencia MD [address] [place] [address] PCP - General Family Medicine 06/01/18 documented as of this encounter
--- OUTSIDE RECORDS SUMMARY | 2025-02-26 15:32 | XMS_ITS | Encounter Summary ---
Author Organization [employer] Address [address] [facility] [address] [place] [address] Care Team Providers Care Yarn Salvager Name Role Phone Adriana Palencia MD Primary Care Provide r Reason for Visit * Reason Comments Med Refill Encounter Details Date Type Department Care Team ([facility] st Contact Info) Description 09/07/2024 Refill [facility] MEDICINE [address] [place] [address] Adriana Palencia MD [address] [place] [address] Polyarthralgia; Class 1 obesity due to excess [...] documented as of this encounter Care Teams Yarn Salvager Relationship Specialty Start Date End Date Adriana Palencia MD [address] [place] [address] PCP - General Family Medicine 06/01/18 documented as of this encounter
--- OUTSIDE RECORDS SUMMARY | 2025-02-26 15:32 | XMS_ITS | Encounter Summary ---
Author Organization [employer] Address [address] [place] [address] [address] [place] [address] Care Team Providers Care Die Technician Name Role Phone Adriana Palencia MD Primary Care Provide r Encounter Details Date Type Department Care Team (Late st Contact Info) Description 03/17/2022 Abstract [facility] MEDICINE [address] [place] [address] ProviderGurvinder MD Social History Tobacco Use Types [...] on filedocumented in this encounter Care Teams Die Technician Relationship Specialty Start Date End Date Adriana Palencia MD [address] [place] [address] PCP - General Family Medicine 06/01/18 documented as of this encounter
--- OUTSIDE RECORDS SUMMARY | 2025-02-26 15:32 | XMS_ITS | Clinical Summary ---
Author Organization [facility] Address [address] [place] [address] Phone Care Team Providers Care Construction Manager Name Role Phone Maribel Garcia XANDER Primary Care Provider [phone] Allergies No known active allergies Medications No [...] patient's age to complete this topic Insurance [facility] Member Subscriber Plan / Payer (Ef fective 2024-Present) Name:Sudha Dean Relation to Subscriber:Self Name:Sudha Dean Payer ID:[id number] Group ID:Not on file Type:Not on file Address: [address] [id number] Care Teams Construction Manager Relationship Specialty Start Date End Date Maribel Garcia FNP PCP - General Internal Medicine 04/11/13
== END 2025-02-26 13:34 | disposition home or self-care (01) ==
LOC: HO.HWS 12:57
PROVIDERS: PCP Internal Medicine; Visit Provider Obstetrics & Gynecology
DX: R35.0 Frequency of micturition (principal)
CPT/HCPCS: 99213

== ENCOUNTER → 2025-02-26 12:56 | Outpatient (BNVA) | payer OTHER, SELFPAY | PROVIDERS: PCP Internal Medicine; Visit Provider Obstetrics & Gynecology | DX: R35.0 Frequency of micturition (principal) | CPT/HCPCS: 99212 ==

== ENCOUNTER 2025-03-24 11:40 | Outpatient (AMB) | payer OTHER, SELFPAY ==
--- NOTE | 2025-03-24 11:48 | A.OFFVIS_ITS ---
Intake Visit Reasons: [facility] Manufacturing Manager Required: Yes Manufacturing Manager Name: #[id number] Allergies diphenhydramine (From BENADRYL) Allergy (Intermediate, Verified 03/24/25 11:55) SEVERE LETHARGY oxycodone (From Percocet) Adverse Reaction (Verified 03/24/25 11:55) Anxiety Medication List - Last Reconciled 03/24/25 by Frances Valle CNP albuterol sulfate 90 mcg/actuation 2 inhalations inhalation Q4-6H PRN diclofenac sodium 1% topical hydroxyzine HCl 25 mg PO TID PRN levothyroxine (Synthroid) orally ; 112 mcg daily 1 tablet from Monday to Monday and take 1-1/2 pills on Sundays; lorazepam 0.5 mg PO BEDTIME PRN omeprazole 20 mg PO DAILY ondansetron 4 mg PO DAILY PRN 30 days sumatriptan succinate take 1 tab at onset of headache; if no relief may repeat 1 tab after at least 2 hrs; max = 4 tabs/24 hr valacyclovir 500 mg PO DAILY HPI Comments Details: 55-year-old woman with asthma, hypothyroidism, anxiety, depression, and migraines that started around teenage years. She was doing okay. Migraines were happening about once every 2 weeks and lasting a day or more depending on severity. Headaches were associated with photophobia, sonophobia, dizziness, and nausea. Sumatriptan as needed helped. She was still under some stress. Sleep was okay with medication. She was working with psychiatrist. [facility] Medical History Panic attacks Asthma Depression Vitamin D deficiency Hypothyroidism Thyroid activity decreased Surgical History Hx of cervical polypectomy Hx of lithotripsy Hx of gastric bypass Family History Father Leukemia Cancer Mother Diabetes mellitus Hypertension Social History Household Members: Spouse Housing: Apartment Alcohol intake: former Comment: medicated with ketorolac and po tylenol Patient Tobacco Use Status: Never used Tobacco Current occupational status: unemployed Sexual orientation: Straight/Heterosexual Gender identity: Female Female Reproductive History Menstrual Age of Menarche: 12 Review of Systems Const Denies chills, Denies daytime sleepiness, Reports difficulty sleeping, Denies fatigue, Denies fever(s), Denies frequent falls, Reports headache(s), Denies increased appetite, Denies poor appetite, Denies snoring, Denies weakness, Denies weight gain and Denies weight loss Eyes Denies loss of vision ENT Denies vertigo, Reports dizziness and Reports headache(s) Card Denies chest pain at rest, Denies chest pain with activity, Denies syncope, Denies leg edema and Denies palpitations Resp Denies snoring GI Denies constipation, Denies heartburn, Denies diarrhea and Denies nausea Denies urinary frequency, Denies urinary incontinence and Denies urinary urgency Musc Denies abnormal gait, Denies numbness and Denies tingling Skin/Breast Denies dry skin and Denies rash Neuro Denies abnormal gait, Denies vertigo, Reports dizziness, Denies syncope, Denies frequent falls, Reports headache(s), Denies lack of coordination, Denies loss of vision, Denies memory loss, Denies numbness, Denies restless legs, Denies seizure-like activity, Denies tingling, Denies paresthesias, Denies tremor(s) and Denies weakness Psych Reports anxiety, Denies depression, Denies auditory hallucinations, Denies memory loss, Denies visual hallucinations and Denies suicidal ideation Endo Denies fatigue and Denies palpitations Physical Exam Const Other: General Appearance:? normal, in no acute distress. Skin:? no rashes, no significant birthmarks. Heart:? S1, S2 normal, no murmurs. Lungs:? clear anteriorly and posteriorly. Extremities:? no edema. Psych:? alert, oriented, cognitive function intact, cooperative with exam. Neuro Other: Mental Status:?Normal attention, orientation, memory and affect.? Cranial Nerves:?Pupils are equal, round and reactive to light. External occular muscles are intact. Visual manriquez are full. Face is symmetrical. Facial sensations are normal. Tongue is midline. Palate elevates symmetrically. Shoulder shrugging is normal. Hearing to bedside conversation is normal. Fundoscopy: WNL Sensory Exam:?....? Coordination:?No ataxia,?no titubation.? Gait Exam: Within normal limits. Cerebellar Signs:?Ophamt-sy-xutt is okay. Extrapyramidal System:?No tremor, rigidity with normal facial expressions.? Pronator Drift:?Not present.? Involuntary Movements:?No tremors seen.? Speech:?Normal.? Results Reviewed Results Reviewed: MRI brain at [facility] [place] [place] 06/29/2022: 1. There are no acute bleeds or territorial infarcts. No masses are demonstrated. There is no abnormal enhancement. 2. The internal auditory canals and CP angles appear normal bilaterally. 3. There are scattered foci of hyperintense FLAIR signal as described CT head at [facility] [place] [place] 02/07/2024: Ventricles slightly small Assessment & Plan Assessment & Plan (1) Migraine without aura: Code(s): G43.009 - Migraine without aura, not intractable, without status migrainosus Category: Medical Qualifiers: Status migrainosus presence: without status migrainosus Intractability: not intractable Qualified Code(s): G43.009 - Migraine without aura, not intractable, without status migrainosus Plan: Continue sumatriptan 50mg 1 tablet as needed for migraine. May take with 1 Aleve or Excedrin and cup of tea or coffee. Continue ondansetron 4mg 1 tablet as needed for nausea #10 for 30 days. Start meclizine 12.5mg 1 tablet as needed twice a day for dizziness #30 for 30 days. Follow up in 4 months or sooner as needed. Plan Meds tried: topiramate Medications: New sumatriptan succinate take 1 tab at onset of headache; if no relief may repeat 1 tab after at least 2 hrs; PO 10 tabs 5RF 30 days meclizine 12.5 mg PO BID PRN 30 tabs 5RF dizziness 30 days Refilled ondansetron 4 mg PO DAILY PRN 10 tabs 5RF nausea and vomiting 30 days Discontinued sumatriptan succinate Discontinued Reason: Order take 1 tab at onset of headache; if no relief may repeat 1 tab after at least 2 hrs; max = 4 tabs/24 hr 20 tabs 0RF Coding Level of Care Code Est Pt Level 4 (32709) Diagnoses Migraine without aura and without status migrainosus, not intractable G43.009 Status migrainosus presence: without status migrainosus Intractability: not intractable
== END 2025-03-24 12:11 | disposition home or self-care (01) ==
LOC: HO.HSM 11:41
PROVIDERS: PCP Internal Medicine; Visit Provider Registered Nurse
DX: G43.009 Migraine without aura, not intractable, without status migrainosus (principal)
CPT/HCPCS: 99214

== ENCOUNTER → 2025-03-24 11:40 | Outpatient (BNVA) | payer OTHER, SELFPAY | PROVIDERS: PCP Internal Medicine; Visit Provider Registered Nurse | DX: G43.009 Migraine without aura, not intractable, without status migrainosus (principal); S46.001S Unspecified injury of muscle(s) and tendon(s) of the rotator cuff of right shoulder, sequela; Z79.899 Other long term (current) drug therapy | CPT/HCPCS: 20610; 99212; J0665; J1100; J2003 ==

== ENCOUNTER 2025-03-24 14:34 | Outpatient (AMB) | payer OTHER, SELFPAY ==
--- NOTE | 2025-03-24 14:40 | MHC.OFFVIS ---
Intake Visit Reasons: Inj - Right Shoulder Injection last 12/09/24 Intake Note: Sudha is a 54 year old right hand dominant female who presents today for an injection in the right shoulder. Last injection was administered 12/09/24. The last injection was helpful and she would like to repeat injection today Allergies diphenhydramine (From BENADRYL) Allergy (Intermediate, Verified 03/24/25 11:55) SEVERE LETHARGY oxycodone (From Percocet) Adverse Reaction (Verified 03/24/25 11:55) Anxiety HPI HPI Inj - Right Shoulder Injection last 12/09/24: Details: Sudha is a 54 year old right hand dominant female who presents today for an injection in the right shoulder. Last injection was administered 12/09/24. The last injection was helpful and she would like to repeat injection today [facility] Medical History Panic attacks Asthma Depression Vitamin D deficiency Hypothyroidism Thyroid activity decreased Surgical History Hx of cervical polypectomy Hx of lithotripsy Hx of gastric bypass Family History Father Leukemia Cancer Mother Diabetes mellitus Hypertension Social History Household Members: Spouse Housing: Apartment Alcohol intake: former Comment: medicated with ketorolac and po tylenol Patient Tobacco Use Status: Never used Tobacco Current occupational status: unemployed Sexual orientation: Straight/Heterosexual Gender identity: Female Female Reproductive History Menstrual Age of Menarche: 12 Physical Exam Extrem Other: Positive Santiago and Neer. Negative empty can. Full range of motion right shoulder. Office Procedures Joint Inj/Aspir; Non-Pain Clin Joint Injection/Drain Details: Injected 1 mL of Decadron and 3 mL 1% lidocaine and 3 mL of 0.25% Marcaine. Site was prepped using aseptic technique. Patient tolerated the procedure well. Shoulders, Hips, Knees, Shoulder Injection Large joint : Right Shoulder Coding Procedure code (CPT) selection complete Assessment & Plan Assessment & Plan (1) Strain of muscle(s) and tendon(s) of the rotator cuff of right shoulder, sequela: Code(s): S46.011S - Strain of muscle(s) and tendon(s) of the rotator cuff of right shoulder, sequela Category: Medical Plan: Injected right shoulder today. Coding Level of Care Code Est Pt Level 3 (43044) Diagnoses Strain of muscle(s) and tendon(s) of the rotator cuff of right shoulder, sequela S46.011S CPT Codes Shoulders, Hips, Knees, - Shoulder Injection Large joint 54413: Right Shoulder ([id number])
--- OUTSIDE RECORDS SUMMARY | 2025-03-24 23:42 | XMS_ITS | Clinical Summary ---
Author Organization [facility] [employer] Address [address] [place] [address] 7[address] [place] [address] Care Team Providers Care Canoe Maker Name Role Phone Adriana Palencia MD [...] 19 Active ergocalciferol (Vitamin D-2) 1.25 MG (28387 UT) capsule take 1 capsule by oral [...] (six) hours. 03/10/20 20 Active Lactobacillus-Inul in ([facility]) capsule take 1 capsule 2 [...] EL DOLOR DE LETI 15 tablet 2 06/16/19 24 Active celecoxib [...] 8 (eight) hours. 75 mL 2 12/13/19 24 Active Blood Pressure Monitoring (Blood Pressure Cuff) miscIndications:El evated blood pressure reading 1 each Once daily. 1 each 02/02/20 24 Active Diclofenac Sodium 1 % gel APPLY [...] 24 hours. 9 tablet 1 02/21/20 24 Active loratadine (Claritin) 10 MG tablet Take 1 tablet (10 mg) by mouth Once per day. 10 tablet 04/23/19 25 026 Active levothyroxine (Synthroid) 125 MCG tabletIndications: Acquired [...] (one) time per week. 2 mL 09/11/19 25 Active albuterol 108 (90 Base) MCG/ACT inhalerIndications :Mild intermittent asthma, unspecified whether complicated INHALE 2 PUFFS BY MOUTH EVERY 4 HOURS 18 g 1 11/08/19 25 Active ibuprofen 800 MG tabletIndications: Fibromyalgia TAKE 1 TABLET BY MOUTH 3 TIMES DAILY. 90 tablet 11/13/19 25 Active valACYclovir (Valtrex) 500 MG tablet TAKE 1 TABLET BY MOUTH EVERY DAY 90 tablet 1 12/10/19 25 Active omeprazole (PriLOSEC) [address] capsuleIndications :Gastroesophageal reflux disease without esophagitis TAKE 1 CAPSULE BY MOUTH BEFORE A MEAL 90 capsule 1 02/06/20 25 Active baclofen (Lioresal) 10 MG tabletIndications: Muscle spasm,Pain TAKE 1 TABLET BY MOUTH 3 TIMES DAY NEEDED 270 tablet 02/22/20 25 Active Active Problems Problem Noted Date [...] life style modifications, diet and referral to applications specialist. Recommended to decrease soda and sugary [...] Type Department Care Team Description 02/21/2025 Refill [facility] [address] [place] [address] Adriana Palencia MD Muscle spasm; Pain 02/17/2025 Patient Outreach [facility] [address] [place] [address] Adriana Palencia MD 02/14/2025 Orders Only GENERIC EXTERNAL DATA DEPARTMENT Provider, Generic External Data 02/05/2025 Refill [facility] [address] [place] [address] Adriana Palencia MD Gastroesophageal reflux disease without [...] Smear 07/02/2026 07/02/2021 Lipid Panel 12/12/2028 12/13/2023, 0 12/2022, 01/12/2021 DTaP/Tdap/Td Vaccines (3 - Td [...] PM EDT Narrative 02/14/2025 5:04 PM EDT [place] [address] XRay Report Signed Patient: Sudha Dean MR#: [id number] : 1970 Acct:[id number] Age/Sex: 55 / F ADM Date: 02/14/25 Loc: HO.ED Attending Dr: Ordering Physician: Patrick Orr MD Date of Service: 02/14/25 Procedure(s): XR chest 2V Accession Number(s): [id number] cc: Adriana Palencia MD; Patrick Orr MD [...] Parminder Velasco MD 02/14/2025 05:00 PM EDT RP Dictated By: Parminder Velasco MD Signed By: <Electronically signed by Parminder Velasco MD in OV> 02/14/251699 DD/ 49 TD/TT: 02/14/251656 Nursery Rn: Procedure Note Donotuseinterpreter, Image - 02/14/[address] [address] XRay Report Signed Patient: Sudha Dean [facility]#: [id number] : 1970Acct:[id number] Age/Sex: 55 / FADM Date: 02/14/25 Loc: .ED Attending Dr: Ordering Physician: Patrick Orr MD Date of Service: 02/14/25 Procedure(s): XR chest 2V Accession Number(s): [id number] cc: Adriana Palencia MD; Patrick Orr MD [...] Parminder Velasco MD 02/14/2025 05:00 PM EDT RP Dictated By: Parminder Velasco MD Signed By: <Electronically signed by Parminder Velasco MD in OV> 02/14/251699 DD/ 49 TD/TT: 02/14/251656 Nursery Rn: [facility] External Provider IMG XR PROCEDURES Final Result * D Dimer High Sensitivity (02/14/2025 4:14 PM EDT) [facility] D Dimer High Sensitivity <150 NG/ML [facility] Comment:D-DIMER HS REFERENCE RANGENote: Our assay [...] ORDERAB LES Final Result Performing Organization Address [facility] de Phone Number [facility] [address] [place] [phone] * High Sensitivity Troponin I (02/14/2025 3:55 PM EDT) [facility] TROPONIN I HIGH SENSITIVITY <2.7 <3.5 - 17.0 ng/L [facility] Comment:The Mac high sens itivity Troponin-I results should beused in conjunction with other diagnostic information suchas ECG, clinical observations and information, and patientsymptoms to aid in the diagnosis of NH. 02/14/2025 3:55 PM EDT 02/14/2025 3:59 PM EDT Generic External Data Provider LAB BLOOD ORDERAB LES Final Result Performing Organization Address [facility] Co de Phone Number [facility] [address] [place] [phone] * (ABNORMAL) CBC auto differential (02/14/2025 3:55 PM EDT) Only the most recent of2 resultswithin the time period is included. [facility] White Blood Count 6.8 4.8 - 10.8 X10*3/uL [facility] Red Blood Count 4.29 4.20 - 5.50 X10*6/uL [facility] Hemoglobin 12.6 12.0 - 16.0 g/dl [facility] Hematocrit 38.4 37.0 - 47.0 % [facility] Mean Corpuscular Volume 89.5 80.0 - 98.0 fL [facility] Mean Corpuscular Hemoglobin 29.4 27.0 - 33.0 pg [facility] Mean Corpuscular HGB Conc 32.8 31.0 - 35.0 g/dl [facility] Red Cell Distribution Width 14.3 11.0 - 16.0 % [facility] Platelet Count 146(L) 160 - 400 X10*3/uL [facility] Mean Platelet Volume 10.3 9.4 - 12.3 fL [facility] Neutrophils Percent Auto 60.9 45 - 73 % [facility] Imm Gran Pct Auto 0.3 0.0 - 0.4 % [facility] Lymphocytes Percent Auto 29.5 20 - 40 % [facility] Monocytes Percent Auto 6.8 2 - 11 % [facility] Eosinophils Percent Auto 1.9 0 - 4 % [facility] Basophils Percent Auto 0.6 0 - 2 % [facility] NRBC Pct Auto 0.0 0.0 - 0.2 /100WBC [facility] Neutrophils Absolute Auto 4.1 2.0 - 8.3 x10*3/uL [facility] Imm Gran Abs Auto 0.02 0.00 - 0.03 X10*3/uL [facility] Lymphocytes Absolute Auto 2.0 1.2 - 4.9 X10*3/uL [facility] Monocytes Absolute Auto 0.5 0.1 - 1.2 X10*3/uL [facility] Eosinophils Absolute Auto 0.1 0.0 - 0.4 X10*3/uL [facility] Basophils Absolute Auto 0.0 0.0 - 0.2 X10*3/uL [facility] NRBC Abs Auto 0.000 0.0 - 0.012 X10*3/uL [facility] 02/14/2025 3:55 PM EDT 02/14/2025 3:59 PM EDT Generic External Data Provider LAB BLOOD ORDERAB LES Final Result Performing Organization Address [facility] Co de Phone Number [facility] [address] [place] [phone] * TSH (02/14/2025 3:55 PM EDT) Only the most recent of2 resultswithin the time period is included. Thyroid Stimulating Hormone 1.51 0.32 - 4.0 uIU/mL [facility] Comment:TSH 3rd Generation ( [facility]) 02/14/2025 3:55 PM EDT 02/14/2025 3:59 PM EDT Generic External Data Provider LAB BLOOD ORDERAB LES Final Result Performing Organization Address [facility] Co de Phone Number [facility] [address] [place] [phone] * Magnesium (02/14/2025 3:55 PM EDT) Only the most recent of2 resultswithin the time period is included. Magnesium 2.1 1.6 - 2.6 mg/dL [facility] 02/14/2025 3:55 PM EDT 02/14/2025 3:59 PM EDT Generic External Data Provider LAB BLOOD ORDERAB LES Final Result Performing Organization Address [facility] Co de Phone Number [facility] [address] [place] [phone] * Lipase (02/14/2025 3:55 PM EDT) Lipase 36 8 - 78 U/L [facility] 02/14/2025 3:55 PM EDT 02/14/2025 3:59 PM EDT us Generic External Data Provider LAB BLOOD ORDERAB LES Final Result [facility] [address] [place] [address] [phone] * (ABNORMAL) Comprehensive Metabolic Panel (02/14/2025 3:55 PM EDT) Only the most recent of2 resultswithin the time period is included. Sodium 141 135 - 145 mmol/L [facility] Potassium 4.1 3.3 - 5.1 mmol/L [facility] Chloride 106 96 - 108 mmol/L [facility] Carbon Dioxide 27 22 - 29 mmol/L [facility] Anion Gap 12 12 - 20 [facility] Urea Nitrogen (BUN) 16 9 - 16 mg/dL [facility] Creatinine, Serum 0.69 0.5 - 1.4 mg/dL [facility] Creatinine Clr Calc Pharmacy 85.5 [facility] Comment:Provided height and weight: 160.02 cm,68.492 kg.eGFR (calculated from the MDRD study equation) and eCrCl(calculated from the Cockcroft-Gault equation) are based ondifferent parameters and may not yield comparable results.If eCrCl result is absurd, please check patient'sheight/weight. Estimated Glomerular Filt Rate >60 [facility] Comment:Chronic Kidney Disea se: Estimated GFR < 60 mL/min/1.76n9Ndcccp Kidney Disease: Estimated GFR < 15 mL/min/1.73m2 Glucose 95 60 - 115 mg/dL [facility] Calcium 9.6 8.4 - 10.2 mg/dL [facility] Bilirubin, Total 0.3 0.0 - 1.0 mg/dL [facility] Aspartate Amino Transferase 33(H) 5 - 31 U/L [facility] Alanine Aminotransferase 9 0 - 31 U/L [facility] Total Protein 7.3 6.5 - 8.0 g/dL [facility] Albumin Level 4.4 3.5 - 5.0 g/dL [facility] Alkaline Phosphatase 128(H) 39 - 117 U/L [facility] 02/14/2025 3:55 PM EDT 02/14/2025 3:59 PM EDT Generic External Data Provider LAB BLOOD ORDERAB LES Final Result Performing Organization Address [facility] Co de Phone Number [facility] [address] [place] [phone] * T4, Free (01/23/2025 3:24 PM EDT) Pathologist [facility] Free T4 (Free Thyroxine) 0.99 0.71 - 1.85 ng/dL [facility] 01/23/2025 3:24 PM EDT 01/23/2025 3:24 PM EDT Generic External Data Provider LAB BLOOD ORDERAB LES Final Result Performing Organization Address [facility] de Phone Number [facility] [address] [place] [phone] * Influenza A B2 ID NOW (Mac) (01/13/2025 11:25 PM EDT) [facility] IDNOW SERIAL# [id number] [facility] Influenza A Negative Negative [facility] Influenza B2 Negative Negative [facility] Influenza A B2 Note See Note [facility] Comment:The Mac ID NOW In [...] GENERAL ORDERABLES Final Result Performing Organization Address [facility] Co de Phone Number [facility] [address] [place] [phone] * Strep A Nucleic Acid (01/13/2025 11:25 PM EDT) IDNOW SERIAL# [id number] [facility] Strep A Nucleic Acid Negative Negative [facility] Comment:All test results mus t [...] GENERAL ORDERABLES Final Result Performing Organization Address [facility] Co de Phone Number [facility] [address] [place] [address] [phone] * (ABNORMAL) COVID-19 ID NOW (MAC) (01/13/2025 11:25 PM EDT) IDNOW SERIAL# [id number] [facility] COVID-19 TEST Positive (A) Negative [facility] COVID-19 NOTE See Note [facility] Comment: Results are for the identification of SARS-CoV2 RNA. TheSARS-CoV2 RNA is generally detectable in respiratory samplesduring the acute phase of infection. Positive results areindicative of the presence of SARS-CoV-2 RNA; clinicalcorrelation with patient history and other diagnosticinformation is necessary to determine patient infectionstatus. Positive results do not rule out bacterial infectionor co- infection with other viruses.Testing facilities within the [facility] and [facility] are required to report all [...] use by authorized laboratories.Testing performed on the Poly[employer] NOW utilizing NAAT. 01/13/2025 11:2 5 PM EDT 01/13/2025 11:39 PM EDT us Generic External Data Provider LAB MOLECULAR KENAN GNOST[employer] ORDERABLES Final Result Performing Organization Address City/State/[facility] Co de Phone Number [facility] [address] [place] [address] [phone] * CT Head w/o Contrast (12/25/2024 7:05 PM EDT) Anatomical Region Laterality Modality Head, Neck Computed Tomogra phy 12/25/2024 7:05 PM EDT Narrative 12/25/2024 7:06 PM EDT [place] [address] CT Scan Report Signed Patient: Sudha Dean MR#: [id number] : 1970 Acct:[id number] Age/Sex: 54 / F ADM Date: 12/25/24 Loc: HO.ED Attending Dr: Ordering Physician: Gaudencio Eldridge Date of Service: 12/25/24 Procedure(s): CT head/brain wo IV con Accession Number(s): [id number] cc: Adriana Palencia MD; Gaudencio Eldridge Report Number: [id number]: Total DLP = 0.00 mGy-cm Reason for [...] in OV> 12/26/24155 DD/ 04 TD/TT: 12/25/241904 Nursery Rn: Procedure Note Donotuseinterpreter, Image - 12/26/[address] [place] [address] [address] Scan Report Signed Patient: Sudha Dean [facility]#: [id number] : 1970Acct:[id number] Age/Sex: 54 / FADM Date: 12/25/24 Loc: HO.ED Attending Dr: Ordering Physician: Gaudencio Eldridge Date of Service: 12/25/24 Procedure(s): CT head/brain wo IV con Accession Number(s): [id number] cc: Adriana Palencia MD; Gaudencio Eldridge Report Number: [id number]: Total DLP = 0.00 mGy-cm Reason for [...] signed by Derek [place]> [id number] DD/ 04 TD/TT: 12/25/241904 Nursery Rn: [facility] External Provider IMG CT PROCEDURES Edited Result - Final * Sed Rate by Modified Jordana (12/25/2024 3:17 PM EDT) Erythrocyte Sedimentation Rate 16 0 - 20 MM/HR [facility] Comment:Patients with polycy themia and many hemoglobin abnormalitiesmay have depressed sed rates whereas patients with anemiamay have elevated sed rates. 12/25/2024 3:17 PM EDT 12/25/2024 3:23 PM EDT Generic External Data Provider LAB BLOOD ORDERAB LES Final Result Performing Organization Address [facility] Co de Phone Number [facility] [address] [place] [phone] * C-reactive Protein (12/25/2024 3:17 PM EDT) C Reactive Protein <0.04 < or = 0.50 mg/dL [facility] 12/25/2024 3:17 PM EDT 12/25/2024 3:23 PM EDT Generic External Data Provider LAB BLOOD ORDERAB LES Final Result Performing Organization Address [facility] Co de Phone Number [facility] [address] [place] [phone] * BI Mammogram Screening Tomosynthesis Bilateral (02/22/2024 8:40 AM EST) Anatomical Region Laterality Modality Breast Bilateral Mammography 02/22/2024 8:40 AM EST Narrative 03/01/2024 4:10 PM EST [facility] [address] [place] [address] Mammography Report Signed Patient: Sudha Dean MR#: [id number] : 1970 Acct:[id number] Age/Sex: 54 / F ADM Date: 02/22/24 Loc: MAMMO Attending Dr: Adriana Sanches MD Ordering Physician: Adriana Palencia MD Results: 1Negative Date of Service: 02/22/24 Follow Up: 1 Year From Orig inal Mammogram Procedure(s): MM tomosynthesis screening BI Accession Number(s): [id number] cc: Adriana Palencia MD EXAMINATION: MM SCREENING [...] by: Rachana Pablo DO 03/01/2024 04:07 PM [facility] Dictated By: Rachana Pablo DO Signed By: <Electronically signed by Rachana Pablo DO in OV> 03/01/24 1607 DD/ 0840 TD/TT: 02/22/24 0903 Nursery Rn: Procedure Note Donotuseinterpreter, Image - 03/01/2024 [facility] [address] [place] [address] Mammography Report Signed Patient: Sudha Dean [facility]#: [id number] : 1970Acct:[id number] Age/Sex: 54 / FADM Date: 02/22/24 Loc: JASKARAN Attending Dr: Adriana Sanches MD Ordering Physician: Adriana Palencia MDResults: 1Negative Date of Service: 02/22/24Follow Up: 1 Year From Orig inal Mammogram Procedure(s): MM tomosynthesis screening BI Accession Number(s): [id number] cc: Adriana Palencia MD EXAMINATION: MM SCREENING [...] by: Rachana Pablo DO 03/01/2024 04:07 PM [facility] Dictated By: Rachana Pablo DO Signed By: <Electronically signed by Rachana Pablo DO in OV> 03/01/24 1607 DD/ 0840 TD/TT: 02/22/24 0903 Nursery Rn: us Adriana Sanches MD IMG BI PROCEDURES Fin al Result * (ABNORMAL) Lipid Panel with Reflex to Direct LDL (12/13/2023 12:18 PM EDT) Triglycerides 52 <150 mg/dL [facility] Comment:Desirable Triglyceri de: less than 150 mg/dLBorderline High Triglyceride 150-199 mg/dLHigh Triglyceride: 200-499 mg/dLVery High Triglyceride: greater than or equal to 5OO mg/dL Cholesterol 187 <200 mg/dL [facility] Comment:Desirable Cholestero l: less than 200 mg/dLBorderline High Cholesterol: 200-239 mg/dLHigh Cholesterol: greater than 239 mg/dL LDL Cholesterol Calculated 109(H) <100 mg/dL [facility] Comment:Desirable LDL: less than 100 mg/dLNear Optimal/Above Optimal LDL: 110- 129 mg/dLBorderline High LDL: 130-159 mg/dLHigh LDL: 160-189 mg/dLVery High LDL: greater than or equal to 190 mg/dL HDL Cholesterol 68 >40 mg/dL [facility] Comment:Desirable HDL: great er than 40 mg/dL Note: This HDL assay may give artificially low results in patients with liver disease. Blood 12/13/2023 12:1 8 PM EDT 12/13/2023 1:25 PM EDT Adriana Sanches MD LAB BLOOD ORDERABLES Final Result Performing Organization Address [facility] de Phone Number [facility] [address] [place] [phone] * Hepatitis C Viral RNA, Quantitative, Real-Time PCR (12/13/2023 12:18 PM EDT) Hepatitis C Viral Load <15 NOT DETECTED NOT DETECTED IU/mL [facility] HCV Log PCR <1.18 NOT DETECTED NOT DETECTED Log IU/mL [facility] Comment:For additional infor gera, please refer tohttp://education.[employer]/faq/OAJ10h2(This link is being provided for informational/educational purposes only.)THIS TEST WAS PERFORMED AT:[facility] [place] [id number] KENNEDY MD Blood 12/13/2023 12:1 8 PM EDT 12/13/2023 1:25 PM EDT us Adriana Sanches MD LAB BLOOD ORDERABLES Final Result Performing Organization Address [facility] Co de Phone Number [facility] [address] [place] [phone] * HIV-1/2 Antigen and Antibodies, Fourth Generation, with Reflexes (12/13/2023 12:18 PM EDT) HIV AB/AG Nonreactive Nonreactive [facility] Comment:HIV-1 p24 Ag and/or HIV-1/HIV-2 Ab not detected.A test result that is nonreactive does not exclude thepossibility of exposure to or infection with HIV-1 and/orHIV-2. Nonreactive results in this assay for individualswith prior exposure to HIV-1 and/or HIV-2 may be due toantigen and antibody levels that are below the limit ofdetection of this assay.The [employer] HIV Ag/Ab Combo assay result andsupplemental assay results should be interpreted inconjunction with the patient's clinical presentation,history and other laboratory results. If the results areinconsistent with clinical evidence, additional testing issuggested to confirm the result. Blood Venous blood specimen / Unknown 12/13/2023 12:18 PM EDT 12/13/2023 1:15 PM EDT us Adriana Sanches MD LAB BLOOD ORDERABLES Final Result [facility] [address] [place] [address] [phone] * Hm Pap Smear (07/02/2021) Pap Negative for intraephithelial lesion or malignancy Negative for intraephithelial lesion or malignancy, Other HPV Undetected us Historical Provider HEALTH MAINTENANCE Final Result from Last 3 Months or Most Recently Relevant to Health Maintenance Insurance [place] [address] [facility] ONE CARE < 65 Care Teams Canoe Maker Relationship Specialty Start Date End Date Adriana Palencia MD [address] [place] [phone] PCP - General Family Medicine 06/01/18
--- OUTSIDE RECORDS SUMMARY | 2025-03-24 23:43 | XMS_ITS | Encounter Summary ---
Author Organization [employer] Address [address] [place] [address] Care Team Providers Care Geothermal Installer Name Role Phone Adriana Palencia MD Primary Care Provide r Reason for Visit * Reason Comments Med Refill Encounter Details Date Type Department Care Team ([facility] st Contact Info) Description 04/14/2023 Refill [facility] [address] [place] [address] Heather Wei MD [address] [place] [address] Gastroesophageal reflux disease without esophagitis Social History [...] documented as of this encounter Care Teams Geothermal Installer Relationship Specialty Start Date End Date Adriana Palencia MD [address] [place] [phone] PCP - General Family Medicine 06/01/18 documented as of this encounter
--- OUTSIDE RECORDS SUMMARY | 2025-03-24 23:43 | XMS_ITS | Encounter Summary ---
Author Organization [employer] Address [address] [place] [address] [address] [place] [address] Care Team Providers Care Package Checker Name Role Phone Adriana Palencia MD Primary Care Provide r Reason for Visit * Reason Comments Med Refill Encounter Details Date Type Department Care Team (Late st Contact Info) Description 11/02/2022 Refill [facility] [address] [place] [address] Lilia Mcgregor FNP Social History Tobacco Use [...] as of this encounter Care Teams Package Checker Relationship Specialty Start Date End Date Adriana Palencia MD [address] [place] [address] PCP - General Family Medicine 06/01/18 documented as of this encounter
--- OUTSIDE RECORDS SUMMARY | 2025-03-24 23:43 | XMS_ITS | Encounter Summary ---
Author Organization [employer] Address [address] [place] [address] 7 [place] [address] Care Team Providers Care Exceptional Children Teacher Name Role Phone Adriana Palencia MD Primary Care Provide r Reason for Visit * Reason Comments Med Refill Encounter Details Date Type Department Care Team ([facility] st Contact Info) Description 10/31/2022 Refill [facility] MEDICINE [address] [place] [address] Adriana Palencia MD 230 [place] [address] Social History Tobacco Use Types Packs/Day Years [...] documented as of this encounter Care Teams Exceptional Children Teacher Relationship Specialty Start Date End Date Adriana Palencia MD [address] [place] [address] PCP - General Family Medicine 06/01/18 documented as of this encounter
--- OUTSIDE RECORDS SUMMARY | 2025-03-24 23:43 | XMS_ITS | Encounter Summary ---
Author Organization [employer] Address [address] [facility] 7 [place] [address] Care Team Providers Care Acid Condenser Name Role Phone Adriana Palencia MD Primary Care Provide r Reason for Visit * Reason Comments Med Refill Encounter Details Date Type Department Care Team ([facility] st Contact Info) Description 12/02/2022 Refill [facility] MEDICINE [address] [place] [address] Bree Ag MD [address] [place] [address] Generalized anxiety disorder Social History Tobacco Use [...] documented as of this encounter Care Teams Acid Condenser Relationship Specialty Start Date End Date Adriana Palencia MD 230 [place] [address] PCP - General Family Medicine 06/01/18 documented as of this encounter
--- OUTSIDE RECORDS SUMMARY | 2025-03-24 23:43 | XMS_ITS | Encounter Summary ---
Author Organization [employer] Address [address] [facility] 7 [place] [address] Care Team Providers Care Sole Stapler Welt Name Role Phone Adriana Palencia MD Primary Care Provide r Reason for Visit * Reason Onset Date Comments Med Refill 05/21/2024 Encounter Details Date Type Department Care Team ([facility] st Contact Info) Description 05/21/2024 Telephone [facility] MEDICINE [address] [place] [address] Adriana Palencia MD [address] [place] [address] Med Refill Social History Tobacco Use Types [...] MG/0.5ML solution auto-injector To be sent to: [facility]/pharmacy #[id number] [place], [place] - [address] [place] [address] documented in this encounter Plan of Treatment Not on file documented as of this encounter Visit Diagnoses Not on filedocumented in this encounter Additional Health Concerns Assessment Noted Time PHQ-9 Depression Total Score: 15 024 9:44 AM EST documented as of this encounter Care Teams Sole Stapler Welt Relationship Specialty Start Date End Date Adriana Palencia MD [address] [place] [address] PCP - General Family Medicine 06/01/18 documented as of this encounter
--- OUTSIDE RECORDS SUMMARY | 2025-03-24 23:43 | XMS_ITS | Encounter Summary ---
Author Organization [employer] Address [address] [facility] [address] 7t [place] [address] Care Team Providers Care Automotive Welder Name Role Phone Adriana Palencia MD Primary Care Provide r Encounter Details Date Type Department Care Team ([facility] st Contact Info) Description 03/14/2023 Abstract [facility] MEDICINE [address] [place] [address] Eliane Raman Social History Tobacco Use Types [...] as of this encounter Care Teams Automotive Welder Relationship Specialty Start Date End Date Adriana Palencia MD [address] [place] [address] PCP - General Family Medicine 06/01/18 documented as of this encounter
--- OUTSIDE RECORDS SUMMARY | 2025-03-24 23:43 | XMS_ITS | Encounter Summary ---
Author Organization [employer] Address [address] [facility] 7 [place] [address] Care Team Providers Care Fish And Wildlife Technician Name Role Phone Adriana Palencia MD Primary Care Provide r Reason for Visit * Reason Comments Med Refill Encounter Details Date Type Department Care Team ([facility] st Contact Info) Description 08/31/2023 Refill [facility] MEDICINE [address] [place] [address] Adriana Palencia MD 230 [place] [address] Gastroesophageal reflux disease without esophagitis Social History [...] as of this encounter Care Teams Fish And Wildlife Technician Relationship Specialty Start Date End Date Adriana Palencia MD [address] [place] [address] PCP - General Family Medicine 06/01/18 documented as of this encounter
--- OUTSIDE RECORDS SUMMARY | 2025-03-24 23:43 | XMS_ITS | Data Portability ---
Author Organization [employer] [facility], [facility] Address [address] [place] [address] Care Team Providers Care Indigo Mixer Name Role Phone HIM CCA OTHER Unavailable OTHER Assessment Encounter Date Assessment Date Assessment LastModified by Organization Details LastModified Time 02/06/2024 02/06/2024 I provided real -time medical direction via phone for this encounter and was available for additional phone-based assistance as needed. I have reviewed and agree with the Assessment and Plan as documented by the Generator Mechanic. Patient given the opportunity to ask questions. Our service contacted for an assessment of: blood pressure check As per above, patient with h/o PEDRO PABLO and anxiety d/o. Wanted to checked and have her BP checked. Denies CP, SOB. Per social media coordinator on the scene, vitals are stable. Please see social media coordinator note for details guarding conversation and outcome [...] Not available Not available Not available 02/06/2024 [id number] RxNorm Melany Covarrubias MD [address] [facility],[address], [place], [address] , [facility] - [employer] 4 09:58:03 6689 diphenhyd ramine medicatio n Not available Not available Not available 02/06/2024 [id number] RxNorm Not Available [facility] - [facility] 4 03:38:24 Medications Name Sig Start Date Stop Date Status Note LastModified by Organization Details LastModified Time blood pr monit omr [id number] USE TO CHECK BLOOD PRESSURE EVERY DAY [...] t Available Vitals Date Recorded Oxygen saturation Body temperature Heart rate Respiratory rate Systolic And Diastolic Provider Name and Address Organization Details Last Updated DateTime 99 % 98.2 [degF] 72 /min 16 /min 146/87 mm[Hg] Not Available [facility] - production 09:19:41 Social History None recorded. Functional Status None recorded. Mental Status None recorded. Family History Nothing Reported. Medical History No medical history recorded. Gynecological HistoryNo gynecological history recorded. Obstetrics History GPAL:G 0 P 0 0 0 0 Past Encounters Encounter ID Performer Location Encounter Start Date Encounter Closed Date Diagnosis/Indication Diagnosis SNOMED-CT Code Diagnosis ICD10 Code Diagnosis IMO Codes Diagnosis Note [id number] Melany Covarrubias MD Main - [facility] [address] [place] [phone] 02/06/2024 09:19:38 02/06/2024 10:34:09 Generalized anxiety disorder 77842340 F41.1 Health Concerns Section Related Observation LastModified by Organization Detai ls LastModified Time None Recorded Concern Status LastModified by Organization Details LastModified Time None Recorded Advance Directives Directive None Recorded Payers Insurance Date Sequence Insurance Name Policy Number Policy Rosa Covered Member ID Rosa Member ID Guarantor Name 02/20/2024 1 [facility] - DOS ON OR AFTER 2022 - DUAL ELIGIBLE - USP OPTIONS AND ONE CARE (MEDICARE REPLACEMENT/ADV ANTAGE - HMO) Sudha Kinney [id number] Sudha Kinney Notes Date Note Type Note [...] accommodate a visit this evening, call via Circular Ripsaw Operator [id number], RED flags discussed, she is agreeable to a visit tomorrow 02/05- Generator Mechanic Organization Information for [employer] [facility] [employer] Legal Name: [facility] Address: [address] [place] [address], [place] [address], Coil Connector Repairer: Kem Verdugo MD IA No.: [id number] Generator Mechanic POC Test Results from [facility] LINETTE Test (09:36:50) Test: - Rapid influenza antigen (09:36:52) Flu: - Rapid strep test (09:36:53) Strep: - ..................... ..................... ..................... ..................... ..................... ..................... ............... Generator Mechanic Note From [facility]: Pt reports hx [...] ............... Disposition: Fulfilled Melany Covarrubias MD [address] [facility],[address], [place], [address], [employer] [facility] [employer] 02/06/2024 10:17:46 OBGyn Episode No OBEpisode recorded.
--- OUTSIDE RECORDS SUMMARY | 2025-03-24 23:43 | XMS_ITS | Encounter Summary ---
Author Organization [employer] Address [address] [facility] 7t [place] [address] Care Team Providers Care Fiscal Accountant Name Role Phone Adriana Palencia MD Primary Care Provide r Reason for Visit * Reason Comments Med Refill Encounter Details Date Type Department Care Team (Late st Contact Info) Description 11/24/2022 Refill [facility] 230 [place] [address] Lilia Mcgregor FNP Migraine without aura and [...] documented as of this encounter Care Teams Fiscal Accountant Relationship Specialty Start Date End Date Adriana Palencia MD [address] [place] [address] PCP - General Family Medicine 06/01/18 documented as of this encounter
--- OUTSIDE RECORDS SUMMARY | 2025-03-24 23:43 | XMS_ITS | Encounter Summary ---
Author Organization [employer] Address [address] [place] [address] 7 [place] [address] Care Team Providers Care Principal Account Clerk Name Role Phone Adriana Palencia MD Primary Care Provide r Reason for Visit * Reason Comments Med Refill Encounter Details Date Type Department Care Team ([facility] st Contact Info) Description 09/25/2022 Refill [facility] MEDICINE 230 [place] [address] Adriana Palencia MD [address] [place] [address] Fibromyalgia Social History Tobacco Use Types Packs/Day [...] documented as of this encounter Care Teams Principal Account Clerk Relationship Specialty Start Date End Date Adriana Palencia MD [address] [place] [address] PCP - General Family Medicine 06/01/18 documented as of this encounter
--- OUTSIDE RECORDS SUMMARY | 2025-03-24 23:43 | XMS_ITS | Clinical Summary ---
Author Organization [facility] Address [address] [place] [address] Phone Care Team Providers Care Financial Officer Name Role Phone Maribel Garcia XANDER Primary Care Provider [phone] Allergies No known active allergies Medications No [...] Orientation Straight 06/08/2024 3: 07 PM EST Last Filed Vital Signs Vital Sign Reading [...] patient's age to complete this topic Insurance [facility] MEDICARE Member Subscriber Plan / Payer (Ef fective 2024-Present) Name:Sudha Dean Relation to Subscriber:Self Name:Sudha Dean Payer ID:[id number] Group ID:Not on file Type:Not on file Address: [address] [phone] Care Teams Financial Officer Relationship Specialty Start Date End Date Maribel Garcia FNP PCP - General Internal Medicine 04/11/13
--- OUTSIDE RECORDS SUMMARY | 2025-03-24 23:43 | XMS_ITS | Clinical Summary ---
Author Organization [facility] Address [address] [place], [place] [id number] Phone Care Team Providers Care Pc Support Specialist Name Role Phone Unknown, Unknown Primary Care [...] MEDICARE PART A & B Care Teams Pc Support Specialist Relationship Specialty Start Date End Date Unknown, Unknown, PCP - General 04/21/17 Additional Source Comments The information contained in this document represents components of the legal health record. It is not the complete legal health record.[facility]
--- OUTSIDE RECORDS SUMMARY | 2025-03-24 23:43 | XMS_ITS | Clinical Summary ---
Author Organization [employer] [facility] Prior to 09/14/24 Address [address] [place] [address] Care Team Providers Care Pressure Tester Name Role Phone Unavailable Primary Care Provider [...]
--- OUTSIDE RECORDS SUMMARY | 2025-03-24 23:43 | XMS_ITS | Encounter Summary ---
Author Organization [employer] Address [address] [facility] 7t [place] [address] Care Team Providers Care Ship Carpenter Name Role Phone Adriana Palencia MD Primary Care Provide r Reason for Visit * Reason Comments Med Change Request Encounter Details Date Type Department Care Team ([facility] st Contact Info) Description 08/06/2024 Refill [facility] MEDICINE [address] [place] [address] Adriana Palencia MD [address] [place] [address] Class 1 obesity due to excess calories [...] documented as of this encounter Care Teams Ship Carpenter Relationship Specialty Start Date End Date Adriana Palencia MD [address] [place] [address] PCP - General Family Medicine 06/01/18 documented as of this encounter
--- OUTSIDE RECORDS SUMMARY | 2025-03-24 23:43 | XMS_ITS | Encounter Summary ---
Author Organization [employer] Address [address] [place] [address] 7t [place] [address] Care Team Providers Care Oil Spreader Operator Name Role Phone Adriana Palencia MD Primary Care Provide r Encounter Details Date Type Department Care Team (Late st Contact Info) Description 03/17/2022 Abstract [facility] MEDICINE [address] [place] [address] ProviderGurvinder MD Social History Tobacco Use Types [...] on filedocumented in this encounter Care Teams Oil Spreader Operator Relationship Specialty Start Date End Date Adriana Palencia MD [address] [place] [address] PCP - General Family Medicine 06/01/18 documented as of this encounter
--- OUTSIDE RECORDS SUMMARY | 2025-03-24 23:43 | XMS_ITS | Encounter Summary ---
Author Organization [employer] Address [address] [facility] 7t [place] [address] Care Team Providers Care Tenterer Name Role Phone Adriana Palencia MD Primary Care Provide r Reason for Visit * Reason Comments Med Refill Encounter Details Date Type Department Care Team ([facility] st Contact Info) Description 07/29/2024 Refill [facility] MEDICINE [address] [place] [address] Adriana Palencia MD [address] [place] [address] Class 1 obesity due to excess calories [...] documented as of this encounter Care Teams Tenterer Relationship Specialty Start Date End Date Adriana Palencia MD [address] [place] [address] PCP - General Family Medicine 06/01/18 documented as of this encounter
--- OUTSIDE RECORDS SUMMARY | 2025-03-24 23:43 | XMS_ITS | Encounter Summary ---
Author Organization [employer] Address [address] [facility] 7t [place] [address] Care Team Providers Care Performance Instructor Name Role Phone Adriana Palencia MD Primary Care Provide r Reason for Visit * Reason Comments Med Refill Encounter Details Date Type Department Care Team ([facility] st Contact Info) Description 08/02/2024 Refill [facility] MEDICINE [address] [place] [address] Adriana Palencia MD [address] [place] [address] Class 1 obesity due to excess calories [...] documented as of this encounter Care Teams Performance Instructor Relationship Specialty Start Date End Date Adriana Palencia MD [address] [place] [address] PCP - General Family Medicine 06/01/18 documented as of this encounter
--- OUTSIDE RECORDS SUMMARY | 2025-03-24 23:43 | XMS_ITS | Encounter Summary ---
Author Organization [employer] Address [address] [facility] 7t [place] [address] Care Team Providers Care Poker Dealer Name Role Phone Adriana Palencia MD Primary Care Provide r Reason for Visit * Reason Comments Med Refill Encounter Details Date Type Department Care Team ([facility] st Contact Info) Description 09/07/2024 Refill [facility] MEDICINE [address] [place] [address] Adriana Palencia MD [address] [place] [address] Polyarthralgia; Class 1 obesity due to excess [...] documented as of this encounter Care Teams Poker Dealer Relationship Specialty Start Date End Date Adriana Palencia MD [address] [place] [address] PCP - General Family Medicine 06/01/18 documented as of this encounter
--- OUTSIDE RECORDS SUMMARY | 2025-03-24 23:43 | XMS_ITS | Encounter Summary ---
Author Organization [employer] Address [address] [place] [address] 7 [place] [address] Care Team Providers Care Laundry Routeman Name Role Phone Adriana Palencia MD Primary Care Provide r Reason for Visit * Reason Comments Med Refill Encounter Details Date Type Department Care Team ([facility] st Contact Info) Description 01/10/2023 Refill [facility] MEDICINE [address] [place] [address] Adriana Palencia MD [address] [place] [address] Social History Tobacco Use Types Packs/Day Years [...] documented as of this encounter Care Teams Laundry Routeman Relationship Specialty Start Date End Date Adriana Palencia MD [address] [place] [address] PCP - General Family Medicine 06/01/18 documented as of this encounter
--- OUTSIDE RECORDS SUMMARY | 2025-03-24 23:43 | XMS_ITS | Encounter Summary ---
Author Organization [employer] Address [address] [facility] [address] 7t [place] [address] Care Team Providers Care Vapor Coater Name Role Phone Adriana Palencia MD Primary Care Provide r Reason for Visit * Reason Comments Med Refill Encounter Details Date Type Department Care Team ([facility] st Contact Info) Description 03/10/2024 Refill [facility] [address] [place] [address] Adriana Palencia MD [address] [place] [address] Vitamin B12 deficiency Social History Tobacco Use [...] documented as of this encounter Care Teams Vapor Coater Relationship Specialty Start Date End Date Adriana Palencia MD [address] [place] [address] PCP - General Family Medicine 06/01/18 documented as of this encounter
--- OUTSIDE RECORDS SUMMARY | 2025-03-24 23:43 | XMS_ITS | Encounter Summary ---
Author Organization [facility] Address [address] [facility] [address] [place] [address] Phone Care Team Providers Care Cloud Systems Architect Name Role Phone Unknown, Unknown Primary Care Provider Nikia pina Encounter Details Date Type Department Care Team (Latest Contact Info) Description 04/21/2017 Ancillary Orders [facility] [address] [place] [address] [place] [address] Hector Zamora DO [address] [place] [address] Palpitations; Chest pain, unspecified type; Syncope, unspecified [...] type documented in this encounter Care Teams Cloud Systems Architect Relationship Specialty Start Date End Date Unknown, Unknown, MD PCP - General 04/21/17 documented as of this encounter Additional Source Comments The information contained in this document represents components of the legal health record. It is not the complete legal health record.[facility]
--- OUTSIDE RECORDS SUMMARY | 2025-03-24 23:43 | XMS_ITS | Encounter Summary ---
Author Organization [employer] Address [address] [facility] 7t [place] [address] Care Team Providers Care Audiovisual Technician Name Role Phone Adriana Palencia MD Primary Care Provide r Reason for Visit * Reason Comments Med Refill Encounter Details Date Type Department Care Team ([facility] st Contact Info) Description 07/19/2024 Refill [facility] MEDICINE [address] [place] [address] Adriana Palencia MD [address] [place] [address] Class 1 obesity due to excess calories [...] documented as of this encounter Care Teams Audiovisual Technician Relationship Specialty Start Date End Date Adriana Palencia MD [address] [place] [address] PCP - General Family Medicine 06/01/18 documented as of this encounter
--- OUTSIDE RECORDS SUMMARY | 2025-03-24 23:43 | XMS_ITS | Encounter Summary ---
Author Organization [employer] Address [address] [facility] 7 [place] [address] Care Team Providers Care Ac/Dc Rewinder Name Role Phone Adriana Palencia MD Primary Care Provide r Reason for Visit * Reason Comments Med Refill Encounter Details Date Type Department Care Team ([facility] st Contact Info) Description 09/12/2024 Refill [facility] MEDICINE [address] [place] [address] Adriana Palencia MD [address] [place] [address] Acquired hypothyroidism Social History Tobacco Use Types [...] documented as of this encounter Care Teams Ac/Dc Rewinder Relationship Specialty Start Date End Date Adriana Palencia MD [address] [place] [address] PCP - General Family Medicine 06/01/18 documented as of this encounter
--- OUTSIDE RECORDS SUMMARY | 2025-03-24 23:43 | XMS_ITS | Encounter Summary ---
Author Organization [employer] Address [address] [facility] 7 [place] [address] Care Team Providers Care Vp Hr Diversity Name Role Phone Adriana Palencia MD Primary Care Provide r Encounter Details Date Type Department Care Team ([facility] st Contact Info) Description 05/17/2022 Telephone [facility] MEDICINE [address] [place] [address] Rosemary Espana RN [address] [place] [address] Social History Tobacco Use Types Packs/Day Years [...] EST T triaged today, [facility] ER [facility] [place] 05[place] for anxiety issues, chest pain, and ear buzzing.. please obtain ER records. documented in this encounter Plan of Treatment Not on file documented as of this encounter Visit Diagnoses Not on filedocumented in this encounter Care Teams Vp Hr Diversity Relationship Specialty Start Date End Date Adriana Palencia MD [address] [place] [address] PCP - General Family Medicine 06/01/18 documented as of this encounter
--- OUTSIDE RECORDS SUMMARY | 2025-03-24 23:43 | XMS_ITS | Encounter Summary ---
Author Organization [employer] Address [address] [facility] [address] 7t [place] [address] Care Team Providers Care Factory Engineer Name Role Phone Adriana Palencia MD Primary Care Provide r Encounter Details Date Type Department Care Team ([facility] st Contact Info) Description 01/18/2023 Abstract [facility] MEDICINE [address] [place] [address] Eliane Raman Social History Tobacco Use Types [...] documented as of this encounter Care Teams Factory Engineer Relationship Specialty Start Date End Date Adriana Palencia MD [address] [place] [address] PCP - General Family Medicine 06/01/18 documented as of this encounter
--- OUTSIDE RECORDS SUMMARY | 2025-03-24 23:43 | XMS_ITS | Encounter Summary ---
Author Organization [employer] Address [address] [facility] 7 [place] [address] Care Team Providers Care Potato Peeler Name Role Phone Adriana Palencia MD Primary Care Provide r Reason for Visit * Reason Onset Date Comments Letter Needed 04/18/2023 Encounter Details Date Type Department Care Team ([facility] st Contact Info) Description 04/18/2023 Telephone [facility] [address] [place] [address] Adriana Palencia MD [address] [place] [address] Letter Needed Social History Tobacco Use Types [...] causing herasthma attacks. Please contact pt @ [phone] Mohawk Speaker documented in this encounter Plan of Treatment Not on file documented as of this encounter Visit Diagnoses Not on filedocumented in this encounter Additional Health Concerns Assessment Noted Time PHQ-9 Depression Total Score: 14 023 3:05 PM EDT documented as of this encounter Care Teams Potato Peeler Relationship Specialty Start Date End Date Adriana Palencia MD [address] [place] [address] PCP - General Family Medicine 06/01/18 documented as of this encounter
--- OUTSIDE RECORDS SUMMARY | 2025-03-24 23:43 | XMS_ITS | Encounter Summary ---
Author Organization [employer] Address [address] [place] [address] [address] [place] [address] Care Team Providers Care Billet Straightener Name Role Phone Adriana Palencia MD Primary Care Provide r Encounter Details Date Type Department Care Team (Late st Contact Info) Description 03/17/2022 Abstract [facility] MEDICINE [address] [place] [address] ProviderGurvinder MD Social History Tobacco Use Types [...] on filedocumented in this encounter Care Teams Billet Straightener Relationship Specialty Start Date End Date Adriana Palencia MD [address] [place] [address] PCP - General Family Medicine 06/01/18 documented as of this encounter
--- OUTSIDE RECORDS SUMMARY | 2025-03-24 23:43 | XMS_ITS | Encounter Summary ---
Author Organization [employer] Address [address] [facility] [address] [place] [address] Care Team Providers Care Cert Pharmacy Tech Name Role Phone Adriana Palencia MD Primary Care Provide r Reason for Visit * Reason Comments Med Refill Encounter Details Date Type Department Care Team ([facility] st Contact Info) Description 08/03/2024 Refill [facility]INE [address] [place] [address] Adriana Palencia MD [address] [place] [address] Class 1 obesity due to excess calories [...] documented as of this encounter Care Teams Cert Pharmacy Tech Relationship Specialty Start Date End Date Adriana Palencia MD [address] [place] [address] PCP - General Family Medicine 06/01/18 documented as of this encounter
--- OUTSIDE RECORDS SUMMARY | 2025-03-24 23:43 | XMS_ITS | Encounter Summary ---
Author Organization [employer] Address [address] [facility] [address] [place] [address] Care Team Providers Care Revit Drafter Name Role Phone Adriana Palencia MD Primary Care Provide r Reason for Visit * Reason Comments Med Change Request Encounter Details Date Type Department Care Team ([facility] st Contact Info) Description 09/10/2024 Refill [facility] MED[facility]INE [address] [place] [address] Adriana Palencia MD [address] [place] [address] Class 1 obesity due to excess calories [...] documented as of this encounter Care Teams Revit Drafter Relationship Specialty Start Date End Date Adriana Palencia MD [address] [place] [address] PCP - General Family Medicine 06/01/18 documented as of this encounter
== END 2025-03-24 15:32 | disposition home or self-care (01) ==
LOC: HO.HOS 14:34
PROVIDERS: PCP Internal Medicine; Visit Provider Orthopaedic Surgery
DX: S46.011S Strain of muscle(s) and tendon(s) of the rotator cuff of right shoulder, sequela (principal)
CPT/HCPCS: 20610; 99213